=== PATIENT | female | born 1945 | race Caucasian/White ===

== ENCOUNTER 2019-06-23 16:07 | Outpatient (RCR) | payer MEDICARE, OTHER, SELFPAY | END 2019-09-21 23:59 | disposition home or self-care (01) | LOC: CAMBRIDGE 16:07 | PROVIDERS: PCP Nurse Practitioner Family; Visit Provider Student in an Organized Health Care Education/Training Program | DX: E11.22 Type 2 diabetes mellitus with diabetic chronic kidney disease (principal); E78.49 Other hyperlipidemia; N18.2 Chronic kidney disease, stage 2 (mild); R25.2 Cramp and spasm; R11.2 Nausea with vomiting, unspecified; R05 Cough; Z79.4 Long term (current) use of insulin | CPT/HCPCS: 99199 ==

== ENCOUNTER 2019-10-19 10:35 | Emergency (ER) | payer MEDICARE, MEDICAID, SELFPAY ==
--- NOTE | ~2019-10-19 | XR_ITS ---
EXAMINATION: XR abdomen/kub 1V EXAM DATE: 10/19/2019 14:40 INDICATION: Constipation. No bowel movement in 4 days. TECHNIQUE: Frontal projection(s) of the abdomen for interpretation. Comparison is made to prior exami nation from 05/25/18. FINDINGS: There is expected amount of colonic stool and gas. No small bowel dilation, nonobstructiv e bowel gas pattern. There are no suspicious calcifications identified. There is no organomegaly suspected. There is L2 vertebroplasty. IMPRESSION: Unremarkable abdomen x-ray exam. Reviewed, dictated and finalized at location A.
[2019-10-19 11:07] VITALS: BP 152/105; PULSE 72; RESP 18; TEMP 36.6; O2SAT 97
--- NOTE | 2019-10-19 14:06 | ED.GIBLEED ---
HPI - GI Bleed General Chief complaint: GI Bleed Stated complaint: My hemroids are hanging down. Time Seen by Provider: 10/19/19 14:01 Source: patient and RN notes reviewed Mode of arrival: ambulatory Limitations: no limitations History of Present Illness HPI Narrative: Pt is a 74 y/o female presenting to the ED c/o constipation. Pt reports she has not been able to perform a BM for 3 days. Pt states she has been taking Laxatives for 4 days and has also tried an enema and a suppository. Pt notes she has a normal bowel routine of going 1-2 times per day and states she doesn't take a stool softener daily. Pt states she is still passing gas and denies any recent medication change. Pt also reports rectal bleeding, but denies N/V, SOB, or ABD pain. Pt notes her last meal was yesterday night. Onset (ago): day(s) (3) Associated symptoms: other (Rectal bleeding) Treatments Prior to Arrival: none (Enema; Laxatives) and suppositories Related Data Home Medications Medication Instructions Recorded Confirmed IV infusion pump accessory #25 each 10/14/19 Lactobacillus acidophilus 1.5 mg 100 mmu cells PO DAILY 10/14/19 (250 million cell) capsule acetaminophen 325 mg capsule 325 mg PO Q6H PRN 10/14/19 albuterol sulfate 90 mcg/actuation 1 inhalation INHALATION Q4H 10/14/19 aerosol inhaler alprazolam 0.5 mg tablet 1 mg PO TID tablet 10/14/19 aspirin 81 mg tablet,delayed 81 mg PO DAILY 10/14/19 release atorvastatin 40 mg tablet 40 mg PO DAILY 10/14/19 benzocaine 20 %-menthol 0.5 % 1 spray TOPICAL DAILY 10/14/19 topical aerosol budesonide-formoterol HFA 80 2 puff INHALATION Q12H 10/14/19 mcg-4.5 mcg/actuation aerosol inhaler carvedilol 25 mg tablet 25 mg PO BID tablet 10/14/19 donepezil 5 mg tablet 5 mg PO ONCE 10/14/19 furosemide 20 mg tablet 20 mg PO DAILY tablet 10/14/19 glipizide 2.5 mg tablet, extended 2.5 mg PO DAILY 10/14/19 release 24 hr glucose 4 gram chewable tablet 4 gm PO Q15M PRN 10/14/19 hydralazine 25 mg tablet 25 mg PO BID tablet 10/14/19 insulin glargine 100 unit/mL (3 10 unit SUB-Q DAILY 10/14/19 mL) subcutaneous pen ipratropium 0.5 mg-albuterol 3 mg 3 ml INHALATION Q6H PRN 10/14/19 (2.5 mg base)/3 mL nebulization soln magnesium carbonate 250 mg capsule mg PO 10/14/19 methocarbamol 750 mg tablet 750 mg PO TID 10/14/19 montelukast 10 mg tablet 10 mg PO DAILY 10/14/19 multivitamin 1 tablet PO DAILY 10/14/19 naproxen sodium 220 mg capsule 220 mg PO BID PRN 10/14/19 nebulizer and compressor #1 each 10/14/19 nitroglycerin 0.4 mg sublingual 0.4 mg SUBLINGUAL Q5M 10/14/19 tablet oxybutynin chloride 5 mg 5 mg PO DAILY 10/14/19 tablet,extended release 24 hr pantoprazole 40 mg tablet,delayed 40 mg PO DAILY tablet 10/14/19 release paroxetine HCl 40 mg tablet 40 mg PO DAILY 10/14/19 sitagliptin 100 mg tablet 100 mg PO DAILY 10/14/19 vitamin B complex 1 tablet PO DAILY 10/14/19 Allergies Allergy/AdvReac Type Severity Reaction Status Date / Time meperidine AdvReac Unknown Diarrhea Verified 10/19/19 15:18 Review of Systems Review of Systems: All systems reviewed & are unremarkable except as noted in HPI and below Respiratory: Respiratory: Denies dyspnea Gastrointestinal: Gastrointestinal: Denies abdominal pain, Reports hematochezia, Reports constipation, Denies nausea and Denies vomiting [facility] Past Medical History Medical History Anemia Anxiety Arthritis Asthma Bilateral cataracts Bronchitis CAD (coronary artery disease) CHF (congestive heart failure) Colitis COPD (chronic obstructive pulmonary disease) CVA (cerebral vascular accident) Depression Gastric ulcer GERD (gastroesophageal reflux disease) Hiatal hernia History of blood transfusion HLD (hyperlipidemia) HTN (hypertension) Myocardial infarction Pneumonia Type II diabetes mellitus UTI (urinary tract infection) Surgical History Surgical History (Reviewe
[2019-10-19 14:50] LABS: Basophils Percent Auto 0.4 % (0.2-1.2); Eosinophils Absolute Auto 0.4 K/mm3 (0-0.3); Eosinophils Percent Auto 4.1 % (0-4.4); Hemoglobin 12.5 g/dL (12.0-15.0); Immature Granulocyte Absolute 0.03 K/mm3 (0.00-0.031); Immature Granulocyte Percent A 0.3 % (0-0.5); Lymphocytes Absolute Auto 2.25 K/mm3 (0.9-3.2); Mean Corpuscular HGB Conc 32.9 g/dl (32-36); Mean Corpuscular Hemoglobin 30.7 pg (26-34); Mean Corpuscular Volume 93.4 fl (80-100); Mean Platelet Volume 10.3 fl (7.4-10.4); Monocytes Absolute Auto 0.6 K/mm3 (0.1-0.6); Monocytes Percent Auto 5.8 % (2.6-8.5); Neutrophils Absolute Auto 6.9 K/mm3 (1.3-6.7); Neutrophils Percent Auto 67.4 % (45.5-73.1); Platelet Count Result 222 k/mm3 (150-375); Red Blood Count 4.07 M/mm3 (4.2-5.4); White Blood Count 10.2 K/mm3 (4.5-10.0)
[2019-10-19 14:57] LABS: Glucose Point of Care 56 (65-105)
--- NOTE | 2019-10-19 15:05 | PC.NURSE ---
Pt. beside glucose 56. EDP notified. EDP asked staff to feed Pt. Gave Pt. two apple juices, turkey sandwich, granola bar, and bag of chips. Pt. ate it all with no issues. Will recheck glucose.
[2019-10-19 15:11] LABS: Alanine Aminotransferase 21 U/L (4-35); Alkaline Phosphatase 95 U/L (38-126); Aspartate Amino Transferase 26 U/L (14-36); Bilirubin,Total 0.3 mg/dL (0.2-1.3); Blood Urea Nitrogen 18 mg/dL (7-17); Calcium 9.2 mg/dL (8.4-10.2); Carbon Dioxide 37 mmol/L (22-30); Chloride 95 mmol/L (98-107); Estimated CRCL calculation 42 ml/min; Estimated Glomerular Filt Rate 49; Glucose 62 mg/dL (65-105); Potassium 3.5 mmol/L (3.4-5.0); Sodium 139 mmol/L (137-145)
[2019-10-19] MEDS: MAGNESIUM CITRATE 300 ML BTL 150 ML PO (15:40)
[2019-10-19 15:59] LABS: Glucose Point of Care 159 (65-105)
[2019-10-19 17:34] VITALS: RESP 16
== END 2019-10-19 17:35 | disposition home or self-care (01) ==
PROVIDERS: Emergency Provider General Practice; PCP Nurse Practitioner Family
DX: K59.00 Constipation, unspecified (principal); M19.90 Unspecified osteoarthritis, unspecified site; J44.9 Chronic obstructive pulmonary disease, unspecified; I25.10 Atherosclerotic heart disease of native coronary artery without angina pectoris; E11.9 Type 2 diabetes mellitus without complications; I50.9 Heart failure, unspecified; Z86.73 Personal history of transient ischemic attack (TIA), and cerebral infarction without residual deficits; Z95.5 Presence of coronary angioplasty implant and graft; F41.9 Anxiety disorder, unspecified; F32.9 Major depressive disorder, single episode, unspecified; K21.9 Gastro-esophageal reflux disease without esophagitis; E78.5 Hyperlipidemia, unspecified; I11.0 Hypertensive heart disease with heart failure; I25.2 Old myocardial infarction; Z87.440 Personal history of urinary (tract) infections; Z79.4 Long term (current) use of insulin; Z79.82 Long term (current) use of aspirin; Z86.2 Personal history of diseases of the blood and blood-forming organs and certain disorders involving the immune mechanism
CPT/HCPCS: 36415; 74018; 80053; 82948; 85025; 99283; A9270

== ENCOUNTER 2020-05-14 06:17 | Emergency (ER) | payer MEDICARE, MEDICAID, SELFPAY ==
[2020-05-14] VITALS (20 sets, daily range): BP systolic 118–174; BP diastolic 67–103; PULSE 73–77; RESP 18; TEMP 36.8; O2SAT 90–95
--- NOTE | ~2020-05-14 | CT_ITS ---
EXAMINATION: CT brain wo con, CT cervical spine wo con EXAM DATE: 05/14/2020 07:18 (accession [id number]), 05/14/2020 07:19 (accession [id number]) INDICATION: Fall, head injury. TECHNIQUE: Spiral CT of the head was performed without contrast. Axial, coronal and sagittal images were reviewed. Spiral CT of the cervical spine was performed without contrast. Axial images were rev iewed. Coronal and sagittal reformatted images were also reviewed. The dose-length product (DLP) fo r this examination was 605.33 (accession [id number]), 424.43 (accession [id number]) mGy-cm. The exposure was tailored according to patient size, and iterative reconstruction (ASIR) was used as additional dose reduction technique. Comparison is made to prior examination from 02/04/2018. FINDINGS: HEAD CT: Old bilateral basal ganglia, right caudate head lacunar infarctions. There is no acute intra parenchymal hemorrhage. No evidence of intraparenchymal brain mass lesion. No evidence of acute inf arction. There is mild to moderate periventricular and subcortical hypodensity, nonspecific but proba shawna related to small vessel ischemic disease. There is mild to moderate prominence of the sulci and ventricles related to cerebral atrophy. There is intracranial carotid arteriosclerosis. There is no mass effect or midline shift. There is no obstructive hydrocephalus suspected. There are no extr a-axial collections. There are no acute calvarial fractures. Patient has had bilateral ocular lens surgery. Soft tissue is unremarkable. The visualized sinuses and mastoid air cells are well aerated . CERVICAL CT: There is bulky upper cervical facet arthropathy. Uncovertebral joint, disc disease and n eural foraminal stenosis is most pronounced at the C6-7 level. There is no evidence of acute cervical fracture. The odontoid process is intact. Pre-dens space is normal. Prevertebral soft tissue is n ormal. There are no soft tissue abnormalities identified. There is no disc space widening or trauma tic vertebral body subluxation suspected. A detailed level by level evaluation of spondylosis can be added as addendum if requested. IMPRESSION: Chronic intracranial findings and cervical spondylosis. Reviewed, dictated and finalized at location A. IMPRESSION: Chronic intracranial findings and cervical spondylosis.
--- NOTE | ~2020-05-14 | XR_ITS ---
EXAMINATION: XR chest 1V portable EXAM DATE: 05/14/2020 07:48 INDICATION: Fall. TECHNIQUE: Portable AP frontal chest x-ray was obtained. Comparison is made to prior examination from 12/09/2018. FINDINGS: The lungs are clear. There are no pleural effusions. Cardiac silhouette is prominent but magnified on this AP technique. There is no pneumothorax suspected. The bones and soft tissues are unremarkable. Mild hyperinflation IMPRESSION: Mild hyperinflation. Reviewed, dictated and finalized at location A. IMPRESSION: Mild hyperinflation.
--- NOTE | 2020-05-14 07:15 | PC.NURSE ---
Report taken from BLADE Blankenship.
--- NOTE | 2020-05-14 07:35 | ED.FALL ---
HPI - Fall General Chief Complaint: Fall Stated Complaint: FALL Time Seen by Provider: 05/14/20 07:02 Source: RN notes reviewed History of Present Illness HPI Narrative: Patient presents emergency department from home for a fall. Patient states she is trying to get into bed and had been back into the bed to sit down and rolled off the bed striking the back of her head. States she has a small amount of bleeding at that time she denies any loss of consciousness she denies any other injuries from the fall. Patient states she is not on any blood thinners. She denies any vision changes numbness or tingling in extremities chest pain shortness of breath abdominal pain or any other symptoms Patient states last tetanus shot was approximately 3 weeks ago Related Data Home Medications Medication Instructions Recorded Confirmed IV infusion pump accessory #25 each 10/14/19 Lactobacillus acidophilus 1.5 mg 100 mmu cells PO DAILY 10/14/19 (250 million cell) capsule acetaminophen 325 mg capsule 325 mg PO Q6H PRN 10/14/19 albuterol sulfate 90 mcg/actuation 1 inhalation INHALATION Q4H 10/14/19 aerosol inhaler alprazolam 0.5 mg tablet 1 mg PO TID tablet 10/14/19 aspirin 81 mg tablet,delayed 81 mg PO DAILY 10/14/19 release atorvastatin 40 mg tablet 40 mg PO DAILY 10/14/19 benzocaine 20 %-menthol 0.5 % 1 spray TOPICAL DAILY 10/14/19 topical aerosol budesonide-formoterol HFA 80 2 puff INHALATION Q12H 10/14/19 mcg-4.5 mcg/actuation aerosol inhaler carvedilol 25 mg tablet 25 mg PO BID tablet 10/14/19 donepezil 5 mg tablet 5 mg PO ONCE 10/14/19 furosemide 20 mg tablet 20 mg PO DAILY tablet 10/14/19 glipizide 2.5 mg tablet, extended 2.5 mg PO DAILY 10/14/19 release 24 hr glucose 4 gram chewable tablet 4 gm PO Q15M PRN 10/14/19 hydralazine 25 mg tablet 25 mg PO BID tablet 10/14/19 insulin glargine 100 unit/mL (3 10 unit SUB-Q DAILY 10/14/19 mL) subcutaneous pen ipratropium 0.5 mg-albuterol 3 mg 3 ml INHALATION Q6H PRN 10/14/19 (2.5 mg base)/3 mL nebulization soln magnesium carbonate 250 mg capsule mg PO 10/14/19 methocarbamol 750 mg tablet 750 mg PO TID 10/14/19 montelukast 10 mg tablet 10 mg PO DAILY 10/14/19 multivitamin 1 tablet PO DAILY 10/14/19 naproxen sodium 220 mg capsule 220 mg PO BID PRN 10/14/19 nebulizer and compressor #1 each 10/14/19 nitroglycerin 0.4 mg sublingual 0.4 mg SUBLINGUAL Q5M 10/14/19 tablet oxybutynin chloride 5 mg 5 mg PO DAILY 10/14/19 tablet,extended release 24 hr pantoprazole 40 mg tablet,delayed 40 mg PO DAILY tablet 10/14/19 release paroxetine HCl 40 mg tablet 40 mg PO DAILY 10/14/19 sitagliptin 100 mg tablet 100 mg PO DAILY 10/14/19 vitamin B complex 1 tablet PO DAILY 10/14/19 Allergies Allergy/AdvReac Type Severity Reaction Status Date / Time meperidine AdvReac Unknown Diarrhea Verified 05/14/20 08:09 Review of Systems Review of Systems: Narrative: Gen.: Denies fevers or chills Eyes: Denies eye pain or visual change ENT: Denies congestion Respiratory: Denies shortness of breath or cough CV: Denies chest pain or palpitations GI: Denies abdominal pain nausea, emesis or diarrhea Musculoskeletal: Denies back pain or muscle pain Neuro: Denies numbness, tingling, weakness or focal weakness reports striking her head Skin: Denies rash Except as documented, all other systems reviewed and negative [facility] Past Medical History Medical History Anemia Anxiety Arthritis Asthma Bilateral cataracts Bronchitis CAD (coronary artery disease) CHF (congestive heart failure) Colitis COPD (chronic obstructive pulmonary disease) CVA (cerebral vascular accident) Depression Gastric ulcer GERD (gastroesophageal reflux disease) Hiatal hernia History of blood transfusion HLD (hyperlipidemia) HTN (hypertension) Myocardial infarction Pneumonia Type II diabetes mellitus UTI (urinary tract infection)
--- NOTE | 2020-05-14 07:43 | PC.NURSE ---
Xray at bedside.
--- NOTE | 2020-05-14 08:00 | PC.NURSE ---
Pt able to ambulate with walker without difficulty. Pt uses walker at baseline.
--- NOTE | 2020-05-14 09:00 | PC.NURSE ---
Pt made aware she is ready for discharge. Pt reports she has no family in the area to come pick her up. Assisted living facility where pt resides was called to see if they offer transport. Assisted living facility does not provide transport.
--- NOTE | 2020-05-14 09:14 | PC.NURSE ---
Pt called daughter for ride.
== END 2020-05-14 09:19 ==
PROVIDERS: Emergency Provider Emergency Medicine; PCP Nurse Practitioner Family
DX: S01.01XA Laceration without foreign body of scalp, initial encounter (principal); M19.90 Unspecified osteoarthritis, unspecified site; J44.9 Chronic obstructive pulmonary disease, unspecified; I25.10 Atherosclerotic heart disease of native coronary artery without angina pectoris; I50.9 Heart failure, unspecified; Z86.73 Personal history of transient ischemic attack (TIA), and cerebral infarction without residual deficits; K21.9 Gastro-esophageal reflux disease without esophagitis; E78.5 Hyperlipidemia, unspecified; I11.0 Hypertensive heart disease with heart failure; I25.2 Old myocardial infarction; E11.9 Type 2 diabetes mellitus without complications; Z87.440 Personal history of urinary (tract) infections; Z86.2 Personal history of diseases of the blood and blood-forming organs and certain disorders involving the immune mechanism; Z79.4 Long term (current) use of insulin; Z79.82 Long term (current) use of aspirin; M47.812 Spondylosis without myelopathy or radiculopathy, cervical region; W06.XXXA Fall from bed, initial encounter
CPT/HCPCS: 12001; 70450; 71045; 72125; 99284

== ENCOUNTER 2020-11-05 11:37 | Emergency (ER) | payer MEDICARE, MEDICAID, SELFPAY ==
[2020-11-05] VITALS (27 sets, daily range): BP systolic 131–157; BP diastolic 76–107; PULSE 71–85; RESP 13–28; TEMP 36.1; O2SAT 92–97
--- NOTE | ~2020-11-05 | XR_ITS ---
EXAMINATION: XR chest 2V DATE: 11/05/2020 12:07 INDICATION: Chest pain TECHNIQUE: AP and lateral views of the chest are obtained. COMPARISON: 05/14/2020 FINDINGS: There are minimal airspace opacities of the left lung base. There is no pleural effusion or pneumothorax. The cardiomediastinal silhouette is normal. A coronary artery stent is noted. There ap pear to be changes of hiatal hernia repair. Vertebroplasty changes noted in the lower thoracic spine. 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 IMPRESSION: 1. Minimal left basilar airspace opacity, consistent with atelectasis versus pneumonia. Reviewed, dictated and finalized at location A. IMPRESSION: 1. Minimal left basilar airspace opacity, consistent with atelectasis versus pn eumonia.
--- NOTE | ~2020-11-05 | CT_ITS ---
EXAMINATION: CTA chest PE protocol DATE: 11/05/2020 13:02 INDICATION: Shortness of breath TECHNIQUE: Computed tomography angiography (CTA) of the chest was performed with 100 mL Omnipaque-350 intravenous contrast timed to evaluate the pulmonary arteries. Coronal maximum intensity projection 3D-reconstructions were created by the technologist. The dose-length product (DLP) was 652.01 mGy-cm. Automated exposure control and iterative reconstruction technique were employed. COMPARISON: 06/26/2013 FINDINGS: The pulmonary arteries are well-opacified. No pulmonary embolism is identified. Stable nodu les of the lower lobes measuring up to 5 mm are consistent with old granulomatous disease. There is m ild atelectasis of the lower lobes. There is no pleural effusion or pneumothorax. The heart size is n ormal. There is calcified coronary artery atherosclerosis. There is a mildly enlarged right hilar lym ph node, likely reactive. There are surgical changes of hiatal hernia repair with a small recurrent h iatal hernia. 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 Vertebroplasty paredes ge is noted in the T10 vertebral body. IMPRESSION: 1. No pulmonary embolism or acute cardiopulmonary abnormality. Mild atelectasis. Reviewed, dictated and finalized at location A. IMPRESSION: 1. No pulmonary embolism or acute cardiopulmonary abnormality. Mild atelectasis .
--- NOTE | 2020-11-05 11:41 | ECG_ITS ---
Measurements Intervals [place] Rate: 73 P: 44 GA: 190 QRS: 6 QRSD: 77 T: 67 QT: 377 QTc: 418 Interpretive Statements SINUS RHYTHM BORDERLINE ST-T WAVE ABNORMALITY- HIGH LATERAL LEADS BASELINE ARTIFACT- I, II, AVR, AVL, AVF BORDERLINE ECG Electronically Signed On 11-05-2020 15:16:28 CDT by Sd Conn D.O.
[2020-11-05 12:07] LABS: Basophils Percent Auto 0.4 % (0.2-1.2); Eosinophils Absolute Auto 0.3 K/mm3 (0-0.3); Eosinophils Percent Auto 2.6 % (0-4.4); Hemoglobin 12.9 g/dL (12.0-15.0); Immature Granulocyte Absolute 0.05 K/mm3 (0.00-0.031); Immature Granulocyte Percent A 0.5 % (0-0.5); Lymphocytes Absolute Auto 2.17 K/mm3 (0.9-3.2); Lymphocytes Percent Auto 22.6 % (18.3-44.2); Mean Corpuscular HGB Conc 33.9 g/dl (32-36); Mean Corpuscular Hemoglobin 31.4 pg (26-34); Mean Corpuscular Volume 92.5 fl (80-100); Mean Platelet Volume 10.4 fl (7.4-10.4); Monocytes Absolute Auto 0.7 K/mm3 (0.1-0.6); Monocytes Percent Auto 6.9 % (2.6-8.5); Neutrophils Absolute Auto 6.4 K/mm3 (1.3-6.7); Platelet Count Result 208 k/mm3 (150-375); Red Blood Count 4.11 M/mm3 (4.2-5.4); Red Cell Distribution Width 12.3 % (11.5-14.5); White Blood Count 9.6 K/mm3 (4.5-10.0)
[2020-11-05 12:18] LABS: Anion Gap 5 mmol/L (8-16); Blood Urea Nitrogen 15 mg/dL (7-17); Calcium 8.6 mg/dL (8.4-10.2); Carbon Dioxide 34 mmol/L (22-30); Chloride 99 mmol/L (98-107); Estimated CRCL calculation 46 ml/min; Estimated Glomerular Filt Rate 54; Glucose 141 mg/dL (65-105); Potassium 4.1 mmol/L (3.4-5.0); Sodium 138 mmol/L (137-145)
[2020-11-05 12:28] LABS: INR 0.9; Prothrombin Time 12.9 Seconds (11.1-14.7)
[2020-11-05 12:29] LABS: Partial Thromboplastin Time 30.1 SECONDS (22.3-36.8)
[2020-11-05 12:30] LABS: Troponin I < 0.012 ng/mL (0.000-0.034)
--- NOTE | 2020-11-05 12:39 | ED.CHESTPAIN ---
HPI - Chest Pain General Chief Complaint: Chest Pain Stated Complaint: chest pain Time Seen by Provider: 11/05/20 12:03 Source: patient Mode of arrival: EMS Limitations: no limitations History of Present Illness HPI narrative: Patient brought in by EMS with reports of left-sided chest pain since last night around 1900. She states that pain radiates was side of her chest and the left side of her back. She now has chest pain bilaterally and to ribs posteriorly on both sides. She had difficulty sleeping last night secondary to pain. Pain is worse with movement. She cannot provide me a descriptive quality for her pain but states it is approximately 4-7 out of 10 in severity. She reports chronic shortness of breath, not worse as of late. She has had a nonproductive cough. Denies any fever, chills, nausea, vomiting. She does report leg swelling. No history of VTE. She does have an underlying history of hypertension, hyperlipidemia, diabetes. Blood sugar this morning was in the 70s. She is also had an UT in the past status post stent placement. She is using neb treatments at home approximately once daily. She states she wears 2-3 L O2 per NC at home. States she has been vaccinated for Covid. No personal history of Covid. No recent sick contacts. She does endorse some urinary frequency, incomplete emptying and dysuria. Related Data Home Medications Medication Instructions Recorded Confirmed IV infusion pump accessory #25 each 10/14/19 Lactobacillus acidophilus 1.5 mg 100 mmu cells PO DAILY 10/14/19 (250 million cell) capsule acetaminophen 325 mg capsule 325 mg PO Q6H PRN 10/14/19 albuterol sulfate 90 mcg/actuation 1 inhalation INHALATION Q4H 10/14/19 aerosol inhaler alprazolam 0.5 mg tablet 1 mg PO TID tablet 10/14/19 aspirin 81 mg tablet,delayed 81 mg PO DAILY 10/14/19 release atorvastatin 40 mg tablet 40 mg PO DAILY 10/14/19 benzocaine 20 %-menthol 0.5 % 1 spray TOPICAL DAILY 10/14/19 topical aerosol budesonide-formoterol HFA 80 2 puff INHALATION Q12H 10/14/19 mcg-4.5 mcg/actuation aerosol inhaler carvedilol 25 mg tablet 25 mg PO BID tablet 10/14/19 donepezil 5 mg tablet 5 mg PO ONCE 10/14/19 furosemide 20 mg tablet 20 mg PO DAILY tablet 10/14/19 glipizide 2.5 mg tablet, extended 2.5 mg PO DAILY 10/14/19 release 24 hr glucose 4 gram chewable tablet 4 gm PO Q15M PRN 10/14/19 hydralazine 25 mg tablet 25 mg PO BID tablet 10/14/19 insulin glargine 100 unit/mL (3 10 unit SUB-Q DAILY 10/14/19 mL) subcutaneous pen ipratropium 0.5 mg-albuterol 3 mg 3 ml INHALATION Q6H PRN 10/14/19 (2.5 mg base)/3 mL nebulization soln magnesium carbonate 250 mg capsule mg PO 10/14/19 methocarbamol 750 mg tablet 750 mg PO TID 10/14/19 montelukast 10 mg tablet 10 mg PO DAILY 10/14/19 multivitamin 1 tablet PO DAILY 10/14/19 naproxen sodium 220 mg capsule 220 mg PO BID PRN 10/14/19 nebulizer and compressor #1 each 10/14/19 nitroglycerin 0.4 mg sublingual 0.4 mg SUBLINGUAL Q5M 10/14/19 tablet oxybutynin chloride 5 mg 5 mg PO DAILY 10/14/19 tablet,extended release 24 hr pantoprazole 40 mg tablet,delayed 40 mg PO DAILY tablet 10/14/19 release paroxetine HCl 40 mg tablet 40 mg PO DAILY 10/14/19 sitagliptin 100 mg tablet 100 mg PO DAILY 10/14/19 vitamin B complex 1 tablet PO DAILY 10/14/19 Allergies Allergy/AdvReac Type Severity Reaction Status Date / Time meperidine AdvReac Unknown Diarrhea Verified 11/05/20 11:57 Review of Systems Review of Systems: Narrative: CONSTITUTIONAL: Denies fever, chills, or sweats. EYES: Denies visual changes, redness, or discharge. ENT: Denies rhinorrhea, congestion, sore throat, or otalgia. CARDIOVASCULAR: Reports chest pain with radiation into the back. Reports leg swelling RESPIRATORY: Reports nonproductive cough and chronic shortness of breath, not worse as of late GASTROINTESTINAL: Denies abdominal pain, nausea, vomiting, or diarrhea. GENITOURINARY:
[2020-11-05] MEDS: ALBUTEROL SULFATE NEB 2.5 MG/0.5 ML INH INHALATION (12:48)
[2020-11-05] MEDS: methylPREDNISolone SOD SUCC 125 MG VIAL IV PUSH (13:09)
[2020-11-05 13:28] LABS: Alanine Aminotransferase 20 U/L (4-35); Albumin Level 3.9 g/dL (3.5-5.1); Alkaline Phosphatase 89 U/L (38-126); Aspartate Amino Transferase 26 U/L (14-36); Bilirubin,Total 0.4 mg/dL (0.2-1.3)
[2020-11-05 13:37] LABS: NT Pro B Type Natriuretic Pept 90 PG/ML (5-100)
[2020-11-05 13:53] LABS: Add Urine Microscopic? NO; Appearance Urine Clear (Clear); Bilirubin Urine Negative (Negative); Blood Urine Negative (Negative); Color Urine Straw (Yellow); Glucose Urine UA Negative (Negative); Ketones Urine Negative (Negative); Leukocyte Esterase Ur Negative LEU/UL (Negative); Nitrate Urine Negative (Negative); Protein Urine Negative (Negative); Specific Grav Ur 1.013 (1.001-1.035); Urobilinogen Urine Negative mg/dL (<2.0)
[2020-11-05 14:01] LABS: Bacteria Urine Trace /hpf; RBC Urine 0-2 /hpf (0-2); Squamous Epithelial Cell Urine Rare /hpf (Few); WBC Urine 0-3 /hpf
[2020-11-05 15:11] LABS: Troponin I < 0.012 ng/mL (0.000-0.034)
== END 2020-11-05 16:07 ==
PROVIDERS: Emergency Medicine; Emergency Provider Nurse Practitioner; PCP Nurse Practitioner Family
DX: J18.9 Pneumonia, unspecified organism (principal); J44.9 Chronic obstructive pulmonary disease, unspecified; I25.10 Atherosclerotic heart disease of native coronary artery without angina pectoris; Z86.73 Personal history of transient ischemic attack (TIA), and cerebral infarction without residual deficits; K21.9 Gastro-esophageal reflux disease without esophagitis; E78.5 Hyperlipidemia, unspecified; I10 Essential (primary) hypertension; I25.2 Old myocardial infarction; E11.9 Type 2 diabetes mellitus without complications; F41.9 Anxiety disorder, unspecified; F32.9 Major depressive disorder, single episode, unspecified; Z87.440 Personal history of urinary (tract) infections; Z79.4 Long term (current) use of insulin; Z79.82 Long term (current) use of aspirin; Z86.2 Personal history of diseases of the blood and blood-forming organs and certain disorders involving the immune mechanism; R06.02 Shortness of breath; R94.31 Abnormal electrocardiogram [ECG] [EKG]
CPT/HCPCS: 36415; 71046; 71275; 80048; 80076; 81003; 83880; 84484; 85025; 85610; 85730; 93005; 94640; 96374; 99284; J2930; Q9967

== ENCOUNTER → 2021-05-25 07:52 | Outpatient (CLI) | payer MEDICARE, SELFPAY ==
--- NOTE | ~2021-05-25 | XR_ITS ---
XR chest 2V DATE: 05/25/2021 08:53 INDICATION: Cough TECHNIQUE: PA and lateral views COMPARISON: 10/16/2020 CT pulmonary scan 11/05/2020 AP and lateral chest FINDINGS: 2. There is aortic calcification and mild unfolding. No hilar or mediastinal enlargement. The lungs a re clear of infiltrate or consolidation. No pleural effusion or pulmonary vascular congestion or pneu mothorax. There is vertebral plasty at T10, anterior wedge compression fracture from T9. There is vertebroplas ty and then L2 fracture. IMPRESSION: No active cardiac pulmonary disease Reviewed, dictated and finalized at location B.
== END ==
PROVIDERS: PCP Registered Nurse; Visit Provider Registered Nurse
DX: R05.9 Cough, unspecified (principal); M48.54XA Collapsed vertebra, not elsewhere classified, thoracic region, initial encounter for fracture
CPT/HCPCS: 71046

== ENCOUNTER 2021-09-07 19:07 | Emergency (ER) | payer MEDICARE, MEDICAID, SELFPAY ==
--- NOTE | ~2021-09-07 | CT_ITS ---
EXAMINATION: CT facial & cervical spine wo DATE: 09/07/2021 20:51 INDICATION: Fall, facial and neck trauma TECHNIQUE: Computed tomography (CT) of the facial bones and cervical spine was performed without intr avenous contrast. Automated exposure control and iterative reconstruction technique were employed. Ex am dose: 513.96 mGy-cm total exam DLP. COMPARISON: 05/14/2020 CT cervical spine FINDINGS: Bilateral comminuted nasal plate fractures. The anterior maxillary spine is intact. The frontozygomatic sutures and zygomatic arches are intact. Normal alignment at the temporomandibula r joints. No mandibular fracture or dislocation. Old left orbital medial wall blowout fracture, present on 05/31/2020 CT brain examination. There is a blowout fracture of the floor of the left orbit, of uncertain age.; Recommend clinical cor relation. No other facial fracture is evident. Prominent rightward deviation of the nasal septum. Soft tissue swelling of the nasal turbinates. Ther e is minimal mucoperiosteal thickening of the left maxillary sinus. The paranasal sinuses are otherwi se normally developed and aerated. There is straightening of the cervical spine, which may be due to positioning and/or muscle spasm. C1 and C2 are normally aligned and the odontoid process is intact. No fracture or dislocation or lock ed facet or prevertebral cervical soft tissue swelling. There is fusion of the apophyseal joints bilaterally at C2-3 and degenerative change at the remaining bilateral cervical apophyseal joints. There is mild degenerative disc disease at C5-6. There is severe degenerative disc disease with anterior posterior spurring at C6-7. There is uncovertebral joint spurring at C5-6 and to a greater extent C6-7. No prevertebral soft tissue swelling. IMPRESSION: Bilateral comminuted nasal plate fractures with overlying soft tissue swelling Old blowout fracture of the medial wall of the left orbit Blowout fracture of the floor of the left orbit, of uncertain age; recommend clinical correlation Straightening of the cervical spinal, which may be due to muscle spasm Degenerative changes, including degenerative disc disease at C5-6 and particularly C6-7 Reviewed, dictated and finalized at [facility]. Reviewed, dictated and finalized at location [facility]. 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
--- NOTE | ~2021-09-07 | XR_ITS ---
XR hand LT min 3V DATE: 09/07/2021 20:59 INDICATION: Fall, left hand injury, pain TECHNIQUE: 3 views COMPARISON: None FINDINGS: There is diffuse osteopenia. There is polyarticular osteoarthritis involving the triscaphe and prominently the first carpometacarp al joints, as well as first and fifth metacarpophalangeal joints and multiple interphalangeal joints. There is up to approximately 4.7 mm dorsally displaced spiral fracture of the shaft of the third meta carpal bone. There is a linear oblique fracture through the distal shaft of the fourth metacarpal bone with up to 2 mm lateral displacement. IMPRESSION: Fractures of the third and fourth metacarpal shafts Diffuse osteopenia Polyarticular osteoarthritis Reviewed, dictated and finalized at location [facility]. RY PUBLIC
--- NOTE | ~2021-09-07 | CT_ITS ---
EXAMINATION: CT brain wo con DATE: 09/07/2021 20:51 INDICATION: Fall. Head injury. Small laceration and bruising at bridge of nose. Small laceration in r ight infraorbital area. TECHNIQUE: Computed tomography (CT) of the head was performed without intravenous contrast. The mA wa s adjusted according to patient size. Iterative reconstruction technique was employed. Exam dose: 60 5.33 mGy-cm total exam DLP. COMPARISON: 05/14/2020 CT brain FINDINGS: Bilateral vertebral artery, basilar artery and internal carotid artery intracranial calcifi cations. There is nonspecific diminished attenuation of the cerebral white matter, likely due to coding auditor antolin small vessel ischemic changes. Bilateral chronic basal ganglia and right periventricular lacunar infarcts. No intracranial mass lesion or hemorrhage or recent cerebrovascular accident is detected. No midline shift or mass effect effect. There is central and cortical cerebral and cerebellar atrophy. No subdural or epidural hematoma is detected. No fracture or bone destruction of the cranial vault. There are comminuted fracture of the left and right nasal plates and overlying nasal soft tissue swel ling. Included portion of the anterior nasal spine appears intact. Chronic old left medial wall orbital blowout fracture. Included facial bones including zygomatic arches are otherwise intact. There is minimal mucoperiostea l thickening of the left maxillary sinus. The paranasal sinuses are otherwise normally aerated. IMPRESSION: Bilateral nasal plate fractures, with overlying soft tissue swelling No acute intracranial finding or skull fracture Old medial wall left orbital blowout fracture, unchanged since 05/14/2020 Intracranial cerebral atherosclerosis and chronic small vessel ischemic changes of cerebral white mat ter Bilateral basal ganglia and right paraventricular chronic lacunar infarcts Cerebral and cerebellar atrophy Reviewed, dictated and finalized at [facility]. Reviewed, dictated and finalized at location [facility]. KEGGER IMPRESSION: Bilateral nasal plate fractures, with overlying soft tissue swelli ng No acute intracranial finding or skull fracture Old medial wall left orbital blowout fracture, unchanged since 05/14/2020 Intracranial cerebral atherosclerosis and chronic small vessel ischemic changes of cerebral white matter Bilateral basal ganglia and right paraventricular chronic lacunar infarcts Cerebral and cerebellar atrophy
[2021-09-07 19:29] VITALS: BP 149/83; PULSE 79; RESP 17; TEMP 36.8; O2SAT 96
--- NOTE | 2021-09-07 20:43 | ED.GENADULT ---
HPI - General Adult General Chief complaint: Fall Stated complaint: fall Time Seen by Provider: 09/07/21 20:16 History of Present Illness HPI narrative: Patient 75-year-old female presents the emergency department with chief complaint of fall. Patient reports that she was getting into her bed that is a elevated platform and the patient slipped and fell to the ground. The patient reports that she has got an abrasion on her right cheek reports that she has a small wound to her nose noticed that her nose is bruised and her nasal septum appears to be crooked. The patient reports that she is up-to-date on her tetanus patient reports she has pain in the dorsum of her left hand. The patient denies loss of consciousness but reports that she has pain in her neck. Related Data Allergies Allergy/AdvReac Type Severity Reaction Status Date / Time No Known Allergies Allergy Verified 09/07/21 20:19 Review of Systems Review of Systems: A 10 system review of systems was completed on the patient and is negative except for what is stated in the HPI. Nursing and ancillary documentation was reviewed. Exam Narrative: GENERAL: Well-appearing, well-nourished, and in no acute distress. HEAD: Normocephalic, there is a abrasion present in the right cheek that does not require repair, there is a small quarter centimeter laceration to the bridge of the nose that does not require repair. There is bruising present around the the nose. EYES: PERRLA and EOMI. ENT: Nares clear, no rhinorrhea or active epistaxis. Mucous membranes moist. NECK: Supple. CHEST: Clear to auscultation. No respiratory distress. HEART: Regular rate and rhythm. No murmur heard. Normal peripheral pulses. ABDOMEN: Soft, nontender, nondistended, normal active bowel sounds. EXTREMITIES: Normal range of motion. No edema. There is tenderness to palpation and bruising present on the dorsum of the left hand SKIN: Warm, dry, no rash. NEURO: No focal deficits. Alert and oriented x3. PSYCH: Normal mood and affect. Course Vital Signs Vital signs: Vital Signs Temperature 36.8 C 09/07/21 19:29 Pulse Rate 79 09/07/21 19:29 Respiratory Rate 17 09/07/21 19:29 Blood Pressure 149/83 H 09/07/21 19:29 Pulse Oximetry 96 09/07/21 19:29 Temperature 36.8 C 09/07/21 19:29 Pulse Rate 79 09/07/21 19:29 Respiratory Rate 17 09/07/21 19:29 Blood Pressure 149/83 H 09/07/21 19:29 Pulse Oximetry 96 09/07/21 19:29 Medical Decision Making Vital Signs Vital Signs: Vital Signs Temperature 36.8 C 09/07/21 19:29 Pulse Rate 79 09/07/21 19:29 Respiratory Rate 17 09/07/21 19:29 Blood Pressure 149/83 H 09/07/21 19:29 Pulse Oximetry 96 09/07/21 19:29 Temperature 36.8 C 09/07/21 19:29 Pulse Rate 79 09/07/21 19:29 Respiratory Rate 17 09/07/21 19:29 Blood Pressure 149/83 H 09/07/21 19:29 Pulse Oximetry 96 09/07/21 19:29 Discharge Plan Discharge Clinical Impression: Fracture, metacarpal shaft Qualifiers: Encounter type: initial encounter Metacarpal bone: third Fracture type: closed Fracture alignment: displaced Laterality: left Qualified Code(s): S62.323A - Displaced fracture of shaft of third metacarpal bone, left hand, initial encounter for closed fracture Fracture, metacarpal Qualifiers: Encounter type: initial encounter Metacarpal bone: fourth Fracture type: closed Metacarpal location: shaft Fracture alignment: displaced Laterality: left Qualified Code(s): S62.325A - Displaced fracture of shaft of fourth metacarpal bone, left hand, initial encounter for closed fracture Fracture of nasal bone Qualifiers: Encounter type: initial encounter Fracture type: closed Qualified Code(s): S02.2XXA - Fracture of nasal bones, initial encounter for closed fracture Patient Disposition: Home, Self-Care Condition: Stable Instructions: Antibiotic Form, Nasal Fracture (ED), Hand Fracture (ED) Follow-up/Referrals: Gerber Wyatt MD [Physic
[2021-09-07 22:10] VITALS: BP 134/87; PULSE 70; RESP 15; O2SAT 97
--- NOTE | 2021-09-07 22:23 | PC.NURSE ---
Pt requesting pain medication at discharge, EDP Dr Mclaughlin made aware and states will place order for NORCO.
[2021-09-07] MEDS: HYDROcodone/acetaminophen (*CRX) 5-325 MG TABLET 1 TAB PO (22:27)
== END 2021-09-07 22:40 | disposition home or self-care (01) ==
PROVIDERS: Emergency Provider Emergency Medicine; PCP Nurse Practitioner Family
DX: S62.323A Displaced fracture of shaft of third metacarpal bone, left hand, initial encounter for closed fracture (principal); S62.325A Displaced fracture of shaft of fourth metacarpal bone, left hand, initial encounter for closed fracture; S02.2XXA Fracture of nasal bones, initial encounter for closed fracture; W01.0XXA Fall on same level from slipping, tripping and stumbling without subsequent striking against object, initial encounter
CPT/HCPCS: 29125; 70450; 70486; 72125; 73130; 99284; A9270

== ENCOUNTER 2021-09-28 01:24 | Day surgery (SDC) | payer MEDICARE, MEDICAID, SELFPAY ==
--- NOTE | 2021-09-18 06:43 | PM.HPGS ---
History of Present Illness History of Present Illness Consent: Risks, benefits, and alternatives have been discussed and questions answered. Patient agrees to proceed with procedure. Chief complaint: Nasal Fx Narrative: Arabella Pike is a 75 year old female fell on her face and has a committed deviated nasal fracture Review of Systems Review of Systems: All systems reviewed & are unremarkable except as noted in HPI and below PMFSH Past Medical History Medical History Anemia Anxiety Arthritis Asthma Bilateral cataracts Bronchitis CAD (coronary artery disease) CHF (congestive heart failure) Colitis COPD (chronic obstructive pulmonary disease) CVA (cerebral vascular accident) Depression Gastric ulcer GERD (gastroesophageal reflux disease) Hiatal hernia History of blood transfusion HLD (hyperlipidemia) HTN (hypertension) Myocardial infarction Pneumonia Type II diabetes mellitus UTI (urinary tract infection) Surgical History Surgical History H/O cardiac catheterization H/O dilation and curettage H/O heart artery stent x3 H/O tubal ligation H/O: hysterectomy History of appendectomy History of bladder surgery Suspension Family History Family History Mother Family history of diabetes mellitus in first degree relative Family history of primary malignant neoplasm of liver Family history of heart disease in male family member before age 55 Family history of hearing loss Family history of liver disease Diabetes mellitus Cerebrovascular accident Family history of pancreatic cancer Father Family history of emphysema Sibling Diabetes mellitus Other Depression Family history of alcoholism Family history of allergic disorder Family history of arthritis Family history of cardiovascular disease Family history of coronary artery disease Family history of malignant neoplasm Family history of mental disorder Family history of osteoporosis Hypertension Social History Social History Smoking status: Never smoker Alcohol intake: never Gender identity (if verbalized by the patient): Female Meds Home Medications and Allergies Home Medications Medication Instructions Recorded Confirmed Type IV infusion pump accessory #25 each 10/14/19 09/11/21 History Lactobacillus acidophilus 1.5 mg 100 mmu cells PO DAILY 10/14/19 09/11/21 History (250 million cell) capsule acetaminophen 325 mg capsule 325 mg PO Q6H PRN 10/14/19 09/11/21 History albuterol sulfate 90 mcg/actuation 1 inhalation INHALATION Q4H 10/14/19 09/11/21 History aerosol inhaler alprazolam 0.5 mg tablet 1 mg PO TID tablet 10/14/19 09/11/21 History aspirin 81 mg tablet,delayed 81 mg PO DAILY 10/14/19 09/11/21 History release atorvastatin 40 mg tablet 40 mg PO DAILY 10/14/19 09/11/21 History benzocaine 20 %-menthol 0.5 % 1 spray TOPICAL DAILY 10/14/19 09/11/21 History topical aerosol budesonide-formoterol HFA 80 2 puff INHALATION Q12H 10/14/19 09/11/21 History mcg-4.5 mcg/actuation aerosol inhaler carvedilol 25 mg tablet 25 mg PO BID tablet 10/14/19 09/11/21 History donepezil 5 mg tablet 5 mg PO ONCE 10/14/19 09/11/21 History furosemide 20 mg tablet 20 mg PO DAILY tablet 10/14/19 09/11/21 History glipizide 2.5 mg tablet, extended 2.5 mg PO DAILY 10/14/19 09/11/21 History release 24 hr glucose 4 gram chewable tablet 4 gm PO Q15M PRN 10/14/19 09/11/21 History hydralazine 25 mg tablet 25 mg PO BID tablet 10/14/19 09/11/21 History insulin glargine 100 unit/mL (3 10 unit SUB-Q DAILY 10/14/19 09/11/21 History mL) subcutaneous pen ipratropium 0.5 mg-albuterol 3 mg 3 ml INHALATION Q6H PRN 10/14/19 09/11/21 History (2.5 mg base)/3 mL nebulization soln magnesium carbonate 250
[2021-09-18 14:15] VITALS: BMI 32.5
--- NOTE | 2021-09-18 14:39 | PC.NURSE ---
Report to the Outpatient Waiting Room, entrance under the green pavilion located off [facility], at time __8:00AM____ on date _09/28/21 . OR Time: ___10:00AM . - You will be asked a series of questions to screen for COVID 19 for your protection. - A mask is required within the hospital. - No visitors are allowed at this time. Preoperative COVID Testing Requirements: No COVID Test needed if: (proof is required; if not received patient will have Rapid Test prior to entry) - Patient has received COVID Vaccine at least 14 days prior to procedure date or - Patient has positive COVID test result within last 90 days of surgery date. COVID Test needed if above criteria is not met If not COVID vaccinated a COVID test must be conducted within 72 hours of surgery and patient is asked to isolate self from time of testing until procedure. You will go to the [facility] for your COVID testing. The [facility] Testing site is located at the corner of [address] [facility]. You will only be called if COVID results are positive and your surgeon may reschedule your elective surgery date. Patients may have clear liquids (water, carbonated beverages, clear teas, apple juice) until 3 hours prior to surgery with a maximum of 20 ounces. - No food from midnight until time of surgery - Infants may have breast milk until 4 hours before surgery, infant formula 6 hours prior to surgery. - Children will be allowed to drink immediately following surgery. If applicable, please bring a bottle or sippy cup to assist with drinking. Juice, water, soda, and popsicles are readily available. For infants on formula, please bring formula the day of surgery. Pacifiers are allowed. Take the following medications with a SIP of water the morning of surgery: __SYMBICORT INHALER, ALBUTEROL INHALER NEEDED,ALPRAZOLAM, CARVEDILOL, HYDRALAZINE, PAROXETINE, TRAMADOL NEEDED Medications to discontinue per physician ____ALL VITAMINS/SUPPLEMENTS 3 DAYS PRE-OP, HOLD ASPIRIN PER DR ACKERMAN Date to take last dose Please no make-up, nail latvian, hairspray, perfume, deodorant, or body powder the day of surgery. No jewelry (including any body piercings) or valuables the day of surgery, leave them at home. Please take a shower or bath the night before, or the morning of, surgery with an antibacterial soap. Wear comfortable, loose fitting clothing. Children are encouraged to wear pajamas. - Jewelry must be removed prior to entering the operating room. Rings and piercings that are not removed may be cut off. - The hospital will not accept responsibility for valuables. - Please leave all valuables, including medications, at home the day of surgery. If you are going home after surgery, a licensed company driver must drive you home. - NO public transportation without another adult. - We recommend that an adult stay with you for 24 hours following discharge. - We also recommend that you do not drive, make important decision, drink alcoholic beverages, or take any drugs that were not prescribed by your health care provider for at least 24 hours after your discharge time. For Pediatric surgeries, we recommend two adults accompany the child home (only one inside the building at this time). Follow any additional instructions given to you from your surgeon. Telephone instructions given to __PATIENT & DAUGHTERADALI and asked if any additional questions and then verbalized understanding. Patient advised to call surgeon office or pre surgery nurse liaison [phone] if any additional questions.
--- NOTE | 2021-09-26 06:56 | PM.HPGS ---
History of Present Illness History of Present Illness Consent: Risks, benefits, and alternatives have been discussed and questions answered. Patient agrees to proceed with procedure. Chief complaint: Nasal Fx Narrative: Arabella Pike is a 75 year old femal about injury to her face with a comminuted deviated nasal fracture Review of Systems Review of Systems: All systems reviewed & are unremarkable except as noted in HPI and below PMFSH Past Medical History Medical History Anemia Anxiety Arthritis Asthma Bilateral cataracts Bronchitis CAD (coronary artery disease) CHF (congestive heart failure) Colitis COPD (chronic obstructive pulmonary disease) CVA (cerebral vascular accident) Depression Gastric ulcer GERD (gastroesophageal reflux disease) Hiatal hernia History of blood transfusion HLD (hyperlipidemia) HTN (hypertension) Myocardial infarction Pneumonia Type II diabetes mellitus UTI (urinary tract infection) Surgical History Surgical History H/O cardiac catheterization H/O dilation and curettage H/O heart artery stent x3 H/O tubal ligation H/O: hysterectomy History of appendectomy History of bladder surgery Suspension Family History Family History Mother Family history of diabetes mellitus in first degree relative Family history of primary malignant neoplasm of liver Family history of heart disease in male family member before age 55 Family history of hearing loss Family history of liver disease Diabetes mellitus Cerebrovascular accident Family history of pancreatic cancer Father Family history of emphysema Sibling Diabetes mellitus Other Depression Family history of alcoholism Family history of allergic disorder Family history of arthritis Family history of cardiovascular disease Family history of coronary artery disease Family history of malignant neoplasm Family history of mental disorder Family history of osteoporosis Hypertension Social History Social History Smoking status: Never smoker Alcohol intake: never Alcohol use details: HEAVY DRINKER, QUIT~2014 Substance use: never Living arrangements: assisted living Additional living arrangements comments: [facility] Gender identity (if verbalized by the patient): Female Spiritual care concerns: No Meds Home Medications and Allergies Home Medications Medication Instructions Recorded Confirmed Type IV infusion pump accessory #25 each 10/14/19 09/11/21 History acetaminophen 325 mg capsule 325 mg PO Q6H PRN 10/14/19 09/18/21 History albuterol sulfate 90 mcg/actuation 1 inhalation INHALATION DAILY 10/14/19 09/18/21 History aerosol inhaler alprazolam 0.5 mg tablet 1 mg PO TID PRN tablet 10/14/19 09/18/21 History aspirin 81 mg tablet,delayed 81 mg PO DAILY 10/14/19 09/18/21 History release atorvastatin 40 mg tablet 40 mg PO DAILY 10/14/19 09/18/21 History budesonide-formoterol HFA 80 2 puff INHALATION Q12H 10/14/19 09/18/21 History mcg-4.5 mcg/actuation aerosol inhaler carvedilol 25 mg tablet 25 mg PO BID tablet 10/14/19 09/18/21 History donepezil 5 mg tablet 5 mg PO ONCE 10/14/19 09/18/21 History furosemide 20 mg tablet 20 mg PO QAM tablet 10/14/19 09/18/21 History glipizide 2.5 mg tablet, extended 2.5 mg PO DAILY 10/14/19 09/18/21 History release 24 hr glucose 4 gram chewable tablet 4 gm PO Q15M PRN 10/14/19 09/18/21 History hydralazine 25 mg tablet 25 mg PO BID tablet 10/14/19 09/18/21 History insulin glargine 100 unit/mL (3 40 unit SUB-Q HS 10/14/19 09/18/21 History mL) subcutaneous pen ipratropium 0.5 mg-albuterol 3 mg 3 ml INHALATION Q6H PRN 10/14/19 09/18/21 History (2.5 mg base)/3 mL nebulization soln mag
[2021-09-28] VITALS (8 sets, daily range): BP systolic 98–148; BP diastolic 55–78; PULSE 71–82; RESP 16–25; TEMP 36.1–36.7; O2SAT 96–100
--- NOTE | 2021-09-28 05:58 | WPDHPUPDATE1 ---
History and Physical Update Update Date/Time: 09/28/21 05:58 History and Physical has been reviewed, including an updated exam of the patient. There are NO changes in the patient's condition. Risks, benefits, and alternatives have been discussed and questions answered. Patient agrees to proceed with procedure.
[2021-09-28] MEDS: LACTATED RINGERS 1,000 ML 30 ML IV CONT (08:52)
--- NOTE | 2021-09-28 09:08 | WPDANESEPPF ---
Anes - Initial Pre Proc Eval Procedure: Operation Date: 09/28/21 09:30 Proposed Procedures p Closed Reduction Nasal Fracture - Arthur Calderón MD Date/Time: 09/28/21 09:08 Surgeon: Arthur Calderón MD Pre Op Diagnosis: Nasal Fx Patient Data Age: 75 Gender: F Height: 1.63 m Weight: 83.85 kg Last Vital Signs Temp 36.1 C L 09/28/21 07:51 Pulse 82 09/28/21 07:51 Resp 16 09/28/21 07:51 BP 138/63 09/28/21 07:51 Pulse Ox 96 09/28/21 07:51 Allergies Allergy/AdvReac Type Severity Reaction Status Date / Time meperidine AdvReac Mild Diarrhea Verified 09/28/21 08:22 Home Medications Medication Instructions Recorded Confirmed Type acetaminophen 325 mg capsule 325 mg PO Q6H PRN 10/14/19 09/28/21 History albuterol sulfate 90 mcg/actuation 1 inhalation INHALATION DAILY 10/14/19 09/28/21 History aerosol inhaler alprazolam 0.5 mg tablet 1 mg PO TID PRN tablet 10/14/19 09/28/21 History aspirin 81 mg tablet,delayed 81 mg PO DAILY 10/14/19 09/28/21 History release atorvastatin 40 mg tablet 40 mg PO DAILY 10/14/19 09/28/21 History budesonide-formoterol HFA 80 2 puff INHALATION Q12H 10/14/19 09/28/21 History mcg-4.5 mcg/actuation aerosol inhaler carvedilol 25 mg tablet 25 mg PO BID tablet 10/14/19 09/28/21 History donepezil 5 mg tablet 5 mg PO ONCE 10/14/19 09/28/21 History furosemide 20 mg tablet 20 mg PO QAM tablet 10/14/19 09/28/21 History glipizide 2.5 mg tablet, extended 2.5 mg PO DAILY 10/14/19 09/28/21 History release 24 hr glucose 4 gram chewable tablet 4 gm PO Q15M PRN 10/14/19 09/28/21 History hydralazine 25 mg tablet 25 mg PO BID tablet 10/14/19 09/28/21 History insulin glargine 100 unit/mL (3 40 unit SUB-Q HS 10/14/19 09/28/21 History mL) subcutaneous pen ipratropium 0.5 mg-albuterol 3 mg 3 ml INHALATION Q6H PRN 10/14/19 09/28/21 History (2.5 mg base)/3 mL nebulization soln magnesium carbonate 250 mg capsule 250 mg PO DAILY 10/14/19 09/28/21 History methocarbamol 750 mg tablet 750 mg PO BID 10/14/19 09/28/21 History montelukast 10 mg tablet 10 mg PO DAILY 10/14/19 09/28/21 History multivitamin 1 tablet PO DAILY 10/14/19 09/28/21 History nebulizer and compressor #1 each 10/14/19 09/27/21 History nitroglycerin 0.4 mg sublingual 0.4 mg SUBLINGUAL Q5M PRN 10/14/19 09/28/21 History tablet pantoprazole 40 mg tablet,delayed 40 mg PO DAILY tablet 10/14/19 09/28/21 History release paroxetine HCl 40 mg tablet 40 mg PO DAILY 10/14/19 09/28/21 History sitagliptin 100 mg tablet 100 mg PO QAM 10/14/19 09/28/21 History vitamin B complex 1 tablet PO DAILY 10/14/19 09/28/21 History polyethylene glycol 3350 [Miralax] 17 gm PO BID PRN 09/18/21 09/28/21 History tramadol 50 mg PO BID 09/18/21 09/28/21 History Laboratory Tests 09/28/21 08:30 Sodium Pending Potassium Pending Chloride Pending Carbon Dioxide Pending Anion Gap Pending BUN Pending Creatinine Pending Estim Creat Clear Calc Pending Estimated GFR Pending Glucose Pending Calcium Pending Patient hx anesthesia problems: none Family hx anesthesia problems: none Results Review: All pre-operative results and documents have been reviewed as part of the pre-operative evaluation. [facility] Past Medical History Medical History Anemia Anxiety Arthritis Asthma Bilateral cataracts Bronchitis CAD (coronary artery disease) CHF (congestive heart failure) Closed left hand fracture third and fourth metacarpal shafts Colitis COPD (chronic obstructive pulmonary disease) CVA (cerebral vascular accident) Depression Diabetes Gastric ulcer GERD (gastroesophageal reflux disease) Hiatal hernia History of blood transfusion HLD (hyperlipidemia) HTN (hypertension) Myocardial infarction Pneumonia Type II diabetes mellitus UTI (urinary tract infection) Surgical History Surgical History
[2021-09-28 09:14] LABS: Anion Gap 6 mmol/L (8-16); Blood Urea Nitrogen 18 mg/dL (7-17); Calcium 9.1 mg/dL (8.4-10.2); Carbon Dioxide 32 mmol/L (22-30); Chloride 102 mmol/L (98-107); Estimated CRCL calculation 38 ml/min; Estimated Glomerular Filt Rate 44; Glucose 148 mg/dL (65-110); Potassium 3.6 mmol/L (3.4-5.0); Sodium 140 mmol/L (137-145)
--- NOTE | 2021-09-28 10:05 | SUR.PREOP ---
pt informed of delay in procedure.
--- NOTE | 2021-09-28 10:21 | W.PM.PROC2 ---
Procedure Note - Detailed Date of Procedure 09/28/21 Pre-op Diagnosis Nasal Fx Post-op Diagnosis same Procedure Performed Close reduction nasal fracture Surgeon Arthur Calderón MD Description of Procedure After induction general anesthesia with digital pressure the nasal pyramid was cracked back into a midline position echo plastic dressing placed on
[2021-09-28 10:40] LABS: Glucose Point of Care 134 mg/dl (65-105)
[2021-09-28] MEDS: fentaNYL CITRATE INJ (*CRX) 100 MCG/2 ML VIAL 25 MCG IV PUSH (11:04)
== END 2021-09-28 12:45 | disposition home or self-care (01) ==
PROVIDERS: Anesthesiology; PCP Nurse Practitioner Family; Visit Provider Otolaryngology
PROC: 0NSBXZZ Reposition Nasal Bone, External Approach (ICD-10-PCS; CPT 21315; principal; 2021-09-28 09:30)
DX: S02.2XXA Fracture of nasal bones, initial encounter for closed fracture (principal); W19.XXXA Unspecified fall, initial encounter; Z79.82 Long term (current) use of aspirin; Z79.51 Long term (current) use of inhaled steroids; D64.9 Anemia, unspecified; F41.9 Anxiety disorder, unspecified; I25.10 Atherosclerotic heart disease of native coronary artery without angina pectoris; I50.9 Heart failure, unspecified; J44.9 Chronic obstructive pulmonary disease, unspecified; Z86.73 Personal history of transient ischemic attack (TIA), and cerebral infarction without residual deficits; I25.2 Old myocardial infarction; E66.9 Obesity, unspecified; Z68.31 Body mass index [BMI] 31.0-31.9, adult; Z79.4 Long term (current) use of insulin
CPT/HCPCS: 21337; 36415; 80048; 82948; A9270; J2704; J3010; J7120

== ENCOUNTER 2021-11-29 11:21 | Emergency (ER) | payer MEDICARE, MEDICAID, SELFPAY ==
[2021-11-29] VITALS (24 sets, daily range): BP systolic 113–130; BP diastolic 67–78; PULSE 74–80; RESP 16–22; TEMP 36.6–36.7; O2SAT 96–99
--- NOTE | ~2021-11-29 | CT_ITS ---
EXAMINATION: CT brain wo con INDICATION: Confusion, transient alteration of awareness COMPARISON: 09/07/2021 TECHNIQUE: Standard unenhanced head CT. The dose-length product (DLP) was 605.33 mGy-cm. The mA was a djusted according to patient size. Iterative reconstruction technique was employed. FINDINGS: There is no acute intraparenchymal hemorrhage. No evidence of mass lesion. No evidence of a cute infarction. There are areas of prior infarction in the bilateral basal ganglia and right caudate nucleus. There is moderate periventricular and subcortical hypodensity probably related to small ves sinai ischemic disease. There is moderate prominence of the sulci and ventricles related to cerebral at rophy. Intracranial calcified cerebral atherosclerosis is noted. There are no extra-axial collections . There is no mass effect or midline shift. Changes in the globes are likely from ocular lens surgery . The visualized sinuses and mastoid air cells are well aerated. IMPRESSION: 1. Areas of prior infarction without acute intracranial abnormality. 2. Age related findings. Reviewed, dictated and finalized at location F.
--- NOTE | 2021-11-29 12:08 | ECG_ITS ---
Measurements Intervals [place] Rate: 73 P: 42 NC: 190 QRS: 11 QRSD: 84 T: 41 QT: 414 QTc: 459 Interpretive Statements SINUS RHYTHM NORMAL ECG NO PREVIOUS ECG AVAILABLE FOR COMPARISON Electronically Signed On 11-29-2021 18:07:26 CDT by Bob Grande M.D.
[2021-11-29 12:41] LABS: Appearance Urine Clear (Clear); Bilirubin Urine Negative (Negative); Blood Urine Negative (Negative); Color Urine Yellow (Yellow); Glucose Urine UA Negative (Negative); Ketones Urine Trace mg/dL (Negative); Leukocyte Esterase Ur Negative LEU/UL (Negative); Nitrate Urine Negative (Negative); Protein Urine Negative (Negative); Specific Grav Ur 1.015 (1.001-1.035); Urobilinogen Urine 0.2 mg/dL (<2.0)
[2021-11-29 12:47] LABS: Bacteria Urine Trace /hpf; Mucus Urine Rare /lpf; RBC Urine 0-2 /hpf (0-2); WBC Urine 0-3 /hpf
[2021-11-29 12:48] LABS: Add Urine Microscopic? YES
[2021-11-29 13:31] LABS: Basophils Percent Auto 0.3 % (0.2-1.2); Eosinophils Absolute Auto 0.3 K/mm3 (0-0.3); Eosinophils Percent Auto 1.9 % (0-4.4); Hematocrit 37.1 % (37.0-47.0); Hemoglobin 12.1 g/dL (12.0-15.0); Immature Granulocyte Absolute 0.07 K/mm3 (0.00-0.031); Immature Granulocyte Percent A 0.5 % (0-0.5); Lymphocytes Absolute Auto 1.92 K/mm3 (0.9-3.2); Lymphocytes Percent Auto 12.5 % (18.3-44.2); Mean Corpuscular HGB Conc 32.6 g/dl (32-36); Mean Corpuscular Hemoglobin 30.7 pg (26-34); Mean Corpuscular Volume 94.2 fl (80-100); Mean Platelet Volume 10.2 fl (7.4-10.4); Monocytes Percent Auto 6.2 % (2.6-8.5); Neutrophils Absolute Auto 12.1 K/mm3 (1.3-6.7); Neutrophils Percent Auto 78.6 % (45.5-73.1); Platelet Count Result 265 k/mm3 (150-375); Red Blood Count 3.94 M/mm3 (4.2-5.4); Red Cell Distribution Width 12.2 % (11.5-14.5); White Blood Count 15.4 K/mm3 (4.5-10.0)
[2021-11-29] MEDS: SODIUM CHLORIDE 0.9% IV 1,000 ML 150 ML IV CONT (13:33)
[2021-11-29 13:41] LABS: Alanine Aminotransferase 15 U/L (4-35); Alkaline Phosphatase 114 U/L (38-126); Anion Gap 9 mmol/L (8-16); Aspartate Amino Transferase 23 U/L (14-36); Blood Urea Nitrogen 16 mg/dL (7-17); Calcium 8.7 mg/dL (8.4-10.2); Carbon Dioxide 30 mmol/L (22-30); Chloride 96 mmol/L (98-107); Estimated Glomerular Filt Rate 54; Glucose 180 mg/dL (65-110); Lactic Acid Reflex 0.7 mmol/L (0.7-2.1); Potassium 3.6 mmol/L (3.4-5.0); Sodium 135 mmol/L (137-145)
--- NOTE | 2021-11-29 15:32 | ED.GENADULT ---
HPI - General Adult General Chief complaint: Altered Mental Status Stated complaint: urinary symptoms Time Seen by Provider: 11/29/21 12:07 Source: patient Mode of arrival: EMS Limitations: no limitations History of Present Illness HPI narrative: 76-year-old with a history of CAD, CHF, arthritis here with complaints of having hallucinations since this morning. Patient states that somebody is trying to operate on her. She also thinks she may be having a urinary tract infection. For the past 4 days she is having difficulty in walking because of pain in the lower back. She denies any fever or chills no history of trauma. Onset (ago): day(s) (1) Severity: moderate Exacerbating factors: none Associated symptoms: denies other symptoms and confusion Related Data Home Medications Medication Instructions Recorded Confirmed acetaminophen 325 mg capsule 325 mg PO Q6H PRN 10/14/19 10/25/21 albuterol sulfate 90 mcg/actuation 1 inhalation INHALATION DAILY 10/14/19 10/25/21 aerosol inhaler alprazolam 0.5 mg tablet 1 mg PO TID PRN tablet 10/14/19 10/25/21 aspirin 81 mg tablet,delayed 81 mg PO DAILY 10/14/19 10/25/21 release atorvastatin 40 mg tablet 40 mg PO DAILY 10/14/19 10/25/21 budesonide-formoterol HFA 80 2 puff INHALATION Q12H 10/14/19 10/25/21 mcg-4.5 mcg/actuation aerosol inhaler carvedilol 25 mg tablet 25 mg PO BID tablet 10/14/19 10/25/21 donepezil 5 mg tablet 5 mg PO ONCE 10/14/19 10/25/21 furosemide 20 mg tablet 20 mg PO QAM tablet 10/14/19 10/25/21 glipizide 2.5 mg tablet, extended 2.5 mg PO DAILY 10/14/19 10/25/21 release 24 hr glucose 4 gram chewable tablet 4 gm PO Q15M PRN 10/14/19 10/25/21 hydralazine 25 mg tablet 25 mg PO BID tablet 10/14/19 10/25/21 insulin glargine 100 unit/mL (3 40 unit SUB-Q HS 10/14/19 10/25/21 mL) subcutaneous pen ipratropium 0.5 mg-albuterol 3 mg 3 ml INHALATION Q6H PRN 10/14/19 10/25/21 (2.5 mg base)/3 mL nebulization soln magnesium carbonate 250 mg capsule 250 mg PO DAILY 10/14/19 10/25/21 methocarbamol 750 mg tablet 750 mg PO BID 10/14/19 10/25/21 montelukast 10 mg tablet 10 mg PO DAILY 10/14/19 10/25/21 multivitamin 1 tablet PO DAILY 10/14/19 10/25/21 nebulizer and compressor #1 each 10/14/19 10/25/21 nitroglycerin 0.4 mg sublingual 0.4 mg SUBLINGUAL Q5M PRN 10/14/19 10/25/21 tablet pantoprazole 40 mg tablet,delayed 40 mg PO DAILY tablet 10/14/19 10/25/21 release paroxetine HCl 40 mg tablet 40 mg PO DAILY 10/14/19 10/25/21 sitagliptin 100 mg tablet 100 mg PO QAM 10/14/19 10/25/21 vitamin B complex 1 tablet PO DAILY 10/14/19 10/25/21 polyethylene glycol 3350 [Miralax] 17 gm PO BID PRN 09/18/21 10/25/21 tramadol 50 mg PO BID 09/18/21 10/25/21 Allergies Allergy/AdvReac Type Severity Reaction Status Date / Time meperidine AdvReac Mild Diarrhea Verified 11/29/21 11:33 Review of Systems Review of Systems: All systems reviewed & are unremarkable except as noted in HPI and below Constitutional: Constitutional: Reports no additional constitutional complaints Eyes: Eyes: Reports no additional eye complaints ENT: Reports system reviewed and no additional complaints, except as documented Cardiovascular: Cardiovascular: Reports no additional cardiovascular complaints Respiratory: Respiratory: Reports no additional respiratory complaints Gastrointestinal: Gastrointestinal: Reports no additional gastrointestinal complaints Genitourinary: Genitourinary: Reports no additional female genitourinary complaints Musculoskeletal: Musculoskeletal: Reports no additional musculoskeletal complaints Integumentary/Breasts: Skin/Breast: Reports system reviewed and no additional complaints, except as docu PMFSH Past Medical History Medical History Anemia Anxiety Arthritis Asthma Bilateral cataracts Bronchitis CAD (coronary artery disease) CHF (congestive heart failure) Closed left hand fracture third and fourth metaca
--- NOTE | 2021-11-29 16:00 | PC.NURSE ---
Called report to TAMARA Worthy at [facility]. Updated on patient status, results of today's testing, discharge plan.
--- NOTE | 2021-11-29 16:03 | PC.NURSE ---
Spoke with patient's daughter Chelly per patient request. Chelly is on her way at this time for discharge.
== END 2021-11-29 16:40 ==
PROVIDERS: Emergency Provider Family Medicine; PCP Nurse Practitioner Family
DX: R44.3 Hallucinations, unspecified (principal); R53.1 Weakness; D64.9 Anemia, unspecified; F41.9 Anxiety disorder, unspecified; M19.90 Unspecified osteoarthritis, unspecified site; J45.909 Unspecified asthma, uncomplicated; I11.0 Hypertensive heart disease with heart failure; I50.9 Heart failure, unspecified; F32.9 Major depressive disorder, single episode, unspecified; K21.9 Gastro-esophageal reflux disease without esophagitis; E11.9 Type 2 diabetes mellitus without complications; Z79.4 Long term (current) use of insulin; I25.10 Atherosclerotic heart disease of native coronary artery without angina pectoris
CPT/HCPCS: 36415; 70450; 80053; 81001; 83605; 85025; 87040; 93005; 96360; 96361; 99284; J7030

== ENCOUNTER 2022-04-23 08:40 | Inpatient (IN) | payer MEDICARE, MEDICAID, SELFPAY ==
[2022-04-23] VITALS (17 sets, daily range): BP systolic 138–156; BP diastolic 67–74; PULSE 70–106; RESP 14–28; TEMP 36.1–36.6; O2SAT 94–99; BMI 32.4
--- NOTE | ~2022-04-23 | XR_ITS ---
EXAMINATION: XR chest 1V portable DATE: 04/23/2022 10:02 INDICATION: Shortness of breath. TECHNIQUE: A single frontal view of the chest was obtained. COMPARISON: Chest 2 views 05/25/2021 FINDINGS: There is mild atelectasis in the lower lung zones. No pleural effusion or pneumothorax. The heart size is normal. 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 IMPRESSION: 1. Mild atelectasis in the lower lung zones. Reviewed, dictated and finalized at location A.
--- NOTE | 2022-04-23 08:48 | ECG_ITS ---
Measurements Intervals [place] Rate: 75 P: 42 CA: 200 QRS: -35 QRSD: 139 T: 110 QT: 434 QTc: 487 Interpretive Statements SINUS RHYTHM LEFT AXIS DEVIATION LEFT BUNDLE BRANCH BLOCK BASELINE ARTIFACT- I, III, AVR, AVL, AVF, V5-V6 ABNORMAL ECG COMPARED TO ECG 11/29/2021 12:42:25 LEFT-AXIS DEVIATION NOW PRESENT LEFT BUNDLE BRANCH BLOCK NOW PRESENT Electronically Signed On 04-23-2022 12:27:44 CDT by Sd Conn D.O.
--- NOTE | 2022-04-23 08:54 | ED.SOB ---
HPI - SOB/Dyspnea General Chief Complaint: Shortness of Breath/Dyspnea Stated Complaint: difficulty breathing Time Seen by Provider: 04/23/22 08:54 Source: patient Mode of arrival: ambulatory Limitations: no limitations History of Present Illness HPI Narrative: Patient is a 76-year-old female with a history of hypertension, coronary artery disease, bronchitis/asthma/COPD, on home oxygen 2 L via nasal cannula nightly, presenting to the emergency department for evaluation of shortness of breath. Patient has had increasing shortness of breath, cough over the past week. Patient denies fever, chills, hemoptysis. Denies left-sided chest pain but does report some mild right-sided chest pain which has been chronic over the past several weeks She denies palpitations, current leg swelling, redness. Patient denies any radiation of the pain to the back, jaw, neck. Patient reports history of symptoms such as this in the past when she has been diagnosed with bronchitis. She denies history of recent known COVID infection or past COVID infection. She is vaccinated. Patient denies recent sick contacts. Related Data Home Medications Medication Instructions Recorded Confirmed acetaminophen 325 mg capsule 325 mg PO Q6H PRN Pain 10/14/19 12/27/21 albuterol sulfate 90 mcg/actuation 1 inhalation inhalation DAILY 10/14/19 12/27/21 aerosol inhaler alprazolam 0.5 mg tablet 1 mg PO TID PRN Anxiety 10/14/19 12/27/21 aspirin 81 mg tablet,delayed 81 mg PO DAILY 10/14/19 12/27/21 release (Adult Low Dose Aspirin) atorvastatin 40 mg tablet 40 mg PO DAILY 10/14/19 12/27/21 budesonide-formoterol HFA 80 2 puff inhalation Q12H 10/14/19 12/27/21 mcg-4.5 mcg/actuation aerosol inhaler (Symbicort) carvedilol 25 mg tablet (Coreg) 25 mg PO BID 10/14/19 12/27/21 donepezil 5 mg tablet 5 mg PO ONCE 10/14/19 12/27/21 furosemide 20 mg tablet 20 mg PO QAM 10/14/19 12/27/21 glipizide 2.5 mg tablet, extended 2.5 mg PO DAILY 10/14/19 12/27/21 release 24 hr glucose 4 gram chewable tablet 4 gm PO Q15M PRN Hypoglycemia 10/14/19 12/27/21 (Dex4 Glucose) hydralazine 25 mg tablet 25 mg PO BID 10/14/19 12/27/21 insulin glargine 100 unit/mL (3 40 unit subcut HS 10/14/19 12/27/21 mL) subcutaneous pen (Lantus Solostar U-100 Insulin) ipratropium 0.5 mg-albuterol 3 mg 3 ml inhalation Q6H PRN Dyspnea 10/14/19 12/27/21 (2.5 mg base)/3 mL nebulization soln magnesium carbonate 250 mg capsule 250 mg PO DAILY 10/14/19 12/27/21 methocarbamol 750 mg tablet 750 mg PO BID 10/14/19 12/27/21 montelukast 10 mg tablet 10 mg PO DAILY 10/14/19 12/27/21 multivitamin 1 tablet PO DAILY 10/14/19 12/27/21 nebulizer and compressor #1 ea 10/14/19 12/27/21 (InnoSpire Essence device) nitroglycerin 0.4 mg sublingual 0.4 mg sublingual Q5M PRN Chest 10/14/19 12/27/21 tablet Pain pantoprazole 40 mg tablet,delayed 40 mg PO DAILY 10/14/19 12/27/21 release paroxetine HCl 40 mg tablet 40 mg PO DAILY 10/14/19 12/27/21 sitagliptin 100 mg tablet (Januvia) 100 mg PO QAM 10/14/19 12/27/21 vitamin B complex 1 tablet PO DAILY 10/14/19 12/27/21 polyethylene glycol 3350 17 17 gm PO BID PRN Constipation 09/18/21 12/27/21 gram/dose oral powder (Miralax) tramadol 50 mg tablet 50 mg PO BID 09/18/21 12/27/21 Allergies Allergy/AdvReac Type Severity Reaction Status Date / Time meperidine AdvReac Mild Diarrhea Verified 04/23/22 08:52 Review of Systems Review of Systems: CONSTITUTIONAL: Denies fever, chills, or sweats. EYES: Denies visual changes, redness, or discharge. ENT: Denies rhinorrhea, reports congestion CARDIOVASCULAR: Reports right sided chest pain, denies left chest pain RESPIRATORY: Reports cough and shortness of breath, reports wheezing GASTROINTESTINAL: Denies abdominal pain, nausea, vomiting, or diarrhea. GENITOURINARY: Denies dysuria or hematuria. SKIN: Denies rash or itching. MUSCULOSKELETAL: Denies back pain, joint pain, or myalgia. NEUROLOGIC: Denies headache, numbness, or weaknes
[2022-04-23] MEDS: ALBUTEROL SULFATE NEB 2.5 MG/3 ML INH 5 MG INHALATION ×3 (09:03→20:29)
[2022-04-23] MEDS: SODIUM CHLORIDE 0.9% IV 500 ML 999 ML IV CONT (09:03)
[2022-04-23] MEDS: methylPREDNISolone SOD SUCC 125 MG VIAL IV PUSH (09:03)
[2022-04-23] MEDS: IPRATROPIUM BR 0.02% INH SOLN 0.5 MG/2.5 ML VIAL INHALATION ×3 (09:04→20:29)
[2022-04-23 09:23] LABS: Basophils Percent Auto 0.5 % (0.2-1.2); Eosinophils Absolute Auto 0.3 K/mm3 (0-0.3); Eosinophils Percent Auto 4.2 % (0-4.4); Hematocrit 37.3 % (37.0-47.0); Hemoglobin 12.4 g/dL (12.0-15.0); Immature Granulocyte Absolute 0.02 K/mm3 (0.00-0.031); Immature Granulocyte Percent A 0.3 % (0-0.5); Lymphocytes Absolute Auto 2.33 K/mm3 (0.9-3.2); Lymphocytes Percent Auto 30.7 % (18.3-44.2); Mean Corpuscular HGB Conc 33.2 g/dl (32-36); Mean Corpuscular Hemoglobin 31.6 pg (26-34); Mean Corpuscular Volume 94.9 fl (80-100); Mean Platelet Volume 10.1 fl (7.4-10.4); Monocytes Absolute Auto 0.6 K/mm3 (0.1-0.6); Monocytes Percent Auto 7.9 % (2.6-8.5); Neutrophils Absolute Auto 4.3 K/mm3 (1.3-6.7); Neutrophils Percent Auto 56.4 % (45.5-73.1); Platelet Count Result 238 k/mm3 (150-375); Red Blood Count 3.93 M/mm3 (4.2-5.4); Red Cell Distribution Width 12.3 % (11.5-14.5); White Blood Count 7.6 K/mm3 (4.5-10.0)
[2022-04-23 09:24] LABS: Alveolar/Arterial O2 Gradient 43.9 mmHg; Base Excess ABG -1.2 mEq/l (+/-2.0); Carboxyhemoglobin 0.2 % THb (0-2.0); Device NASAL CANNULA; Fractional Inspired Oxygen 28 %; HCO3 ABG 24.5 mEq/l (22.0-26.0); Methemoglobin ABG 0.1 %THb (0-1.5); Modified Allen's Test Pass; Oxygen Content ABG 17.7 %vol (16.0-22.0); Oxygen Saturation ABG 97.5 % (95.0-100.0); Oxyhemoglobin 96.7 % THb (90.0-100.0); PCO2 ABG 44.5 mmHg (35.0-45.0); PO2 ABG 103.2 mmHg (80.0-100.0); PO2 FiO2 Ratio Arterial Blood 3.69 %; Site Drawn LEFT RADIAL; Total Hemoglobin 12.9 g/dL (12.0-18.0); pH ABG 7.358 (7.350-7.450)
[2022-04-23 09:42] LABS: SARS-CoV-2 RNA PCR Negative
[2022-04-23 09:44] LABS: INR 1.1; Prothrombin Time 13.6 Seconds (11.1-14.7)
[2022-04-23 09:45] LABS: Partial Thromboplastin Time 34.4 SECONDS (22.3-36.8)
[2022-04-23 10:00] LABS: Alanine Aminotransferase 22 U/L (6-35); Albumin Level 3.8 g/dL (3.5-5.1); Alkaline Phosphatase 99 U/L (38-126); Anion Gap 13 mmol/L (8-16); Aspartate Amino Transferase 22 U/L (14-36); Bilirubin,Total 0.5 mg/dL (0.2-1.3); Blood Urea Nitrogen 18 mg/dL (7-17); Calcium 8.4 mg/dL (8.4-10.2); Carbon Dioxide 26 mmol/L (22-30); Chloride 102 mmol/L (98-107); Estimated CRCL calculation 40 ml/min; Estimated Glomerular Filt Rate 48; Glucose 164 mg/dL (65-110); NT Pro B Type Natriuretic Pept 94 pg/mL (5-100); Potassium 3.9 mmol/L (3.4-5.0); Sodium 141 mmol/L (137-145); Troponin I < 0.012 ng/mL (0.000-0.034)
--- NOTE | 2022-04-23 13:17 | ADMGEN ---
This patient, Arabella Pike, was admitted to [facility] Surg Room 325-01. Patient/family oriented to hospital policies and general routines including ID bracelet, bed and alarms, visiting hours, pain management, procedures, bathroom and other care routines, personal items, smoking policy, room service/diet, and visiting hours. Information on how to activate the Rapid Response Team has been discussed. Patient/Family are encouraged to report perceived risks to care and to ask questions if they do not understand what they are told or what they should do.
[2022-04-23 15:21] LABS: Troponin I < 0.012 ng/mL (0.000-0.034)
--- NOTE | 2022-04-23 16:30 | PM.IMHP ---
H&P: HPI History of Present Illness Date/Time: 04/23/22 16:30 Chief Complaint: Shortness of breath. Narrative: This is a 76-year-old female with asthma/COPD, hypertension, hyperlipidemia, insulin-dependent diabetes, and other comorbidities who presented to the emergency department via EMS from [facility] for evaluation of shortness of breath. She endorses increasing dyspnea on lesser and lesser exertion since last Saturday. Several days last week she had chills and myalgias though that has since improved. She has also had a cough productive of green-colored sputum in addition to sinus congestion. She has been using her inhalers and nebulizers twice a day however she continues to have pretty significant coughing and wheezing. she is typically on 2 liters nasal cannula at nighttime only however she has been wearing her oxygen consistently for the past several days. This morning she was so short of breath that EMS was summoned. On their arrival she was in a tripod position with audible wheezing. She was given a nebulizer and magnesium 2 grams IV in route to the hospital with some improvement she is being admitted in this setting for further treatment of asthma/COPD exacerbation. She denies fever, headache, sore throat, chest pain, pleuritic pain, nausea, vomiting, and diarrhea. No sick contacts or known exposure to COVID or influenza. Review of Systems Review of Systems: Twelve systems were reviewed. Weight has remained stable. She typically ambulates with a walker at her facility but occasionally uses a cane. She does get short of breath when at the grocery store and she typically uses the cart to help her get around. She has not noticed any significant lower extremity edema. No history of venous thromboembolism. She denies dysphagia and concerns for aspiration. Except as documented, all other systems were reviewed and are negative. [facility] Past Medical History Medical History (Updated 04/23/22 @ 22:17 by Madonna Yadav PA-C) Anemia Anxiety Arthritis Asthma Asthma-COPD overlap syndrome Cerebrovascular accident Chronic kidney disease, stage 3 Chronic respiratory failure with hypoxia, on home oxygen therapy On 2 liters nasal cannula at nighttime. Colitis Congestive heart failure Coronary artery disease Depression Dyslipidemia Gastric ulcer Gastroesophageal reflux disease Hiatal hernia Hypertension Insulin dependent type 2 diabetes mellitus Myocardial infarction Pneumonia Surgical History Surgical History (Updated 04/23/22 @ 15:33 by Madonna G. Gerling, PA-C) History of appendectomy History of bladder suspension procedure History of cardiac catheterization History of colonoscopy with polypectomy History of coronary artery stent placement History of dilation and curettage History of hysterectomy History of sinus surgery History of tubal ligation Family History Family History Mother Family history of diabetes mellitus in first degree relative Family history of primary malignant neoplasm of liver Family history of heart disease in male family member before age 55 Family history of hearing loss Family history of liver disease Diabetes mellitus Cerebrovascular accident Family history of pancreatic cancer Hypertension Father Family history of emphysema Sibling Diabetes mellitus Other Depression Family history of alcoholism Family history of allergic disorder Family history of arthritis Family history of cardiovascular disease Family history of coronary artery disease Family history of malignant neoplasm Family history of mental disorder Family history of osteoporosis Social History Social History (Updated 04/23/22 @ 22:14 by Madonna Yadav PA-C) Social History: Healthcare power of civil attorney: Alistair Martínez. Code status: Full code. Smoking status: Never smoker Second hand tobacco smoke exposure: Yes Alcohol
[2022-04-23] MEDS: MONTELUKAST SODIUM 10 MG TABLET PO (22:47)
[2022-04-23] MEDS: hydrALAZINE HCL 25 MG TABLET PO (22:48)
[2022-04-23] MEDS: ATORVASTATIN 20 MG TABLET PO (22:48)
[2022-04-23] MEDS: AZITHROMYCIN 250 MG TABLET 500 MG PO (22:48)
[2022-04-23] MEDS: carvediloL 25 MG TABLET PO (22:48)
[2022-04-23] MEDS: INSULIN GLARGINE (*BKC) 100 UNITS/ML 50 UNITS SUB-Q (22:52)
[2022-04-23 23:10] LABS: Glucose Point of Care 423 mg/dl (65-105)
[2022-04-23] MEDS: INSULIN ASPART (*BKC) 100 UNITS/ML 10 UNITS SUB-Q (23:26)
[2022-04-24] VITALS (16 sets, daily range): BP systolic 149–160; BP diastolic 58–64; PULSE 74–91; RESP 16–20; TEMP 36.1–36.2; O2SAT 94–97
--- NOTE | 2022-04-24 00:04 | PC.NURSE ---
Pt is able to ambulate to the bathroom without getting short of breath. Pt had blood sugar of 423, PA Madonna Yadav was notified. Order was placed for 10 units Novolog. Pt was treated. Pt was treated. Pt resting comfortably on 2L O2. Will continue to monitor pt.
[2022-04-24] MEDS: IPRATROPIUM BR 0.02% INH SOLN 0.5 MG/2.5 ML VIAL INHALATION ×5 (02:15→20:06)
[2022-04-24] MEDS: ALBUTEROL SULFATE NEB 2.5 MG/3 ML INH 5 MG INHALATION ×4 (02:15→20:06)
[2022-04-24 06:28] LABS: Hematocrit 35.9 % (37.0-47.0); Hemoglobin 12.2 g/dL (12.0-15.0); Mean Corpuscular Hemoglobin 31.3 pg (26-34); Mean Corpuscular Volume 92.1 fl (80-100); Mean Platelet Volume 10.3 fl (7.4-10.4); Platelet Count Result 233 k/mm3 (150-375); Red Cell Distribution Width 11.9 % (11.5-14.5); White Blood Count 12.4 K/mm3 (4.5-10.0)
[2022-04-24 06:46] LABS: Anion Gap 14 mmol/L (8-16); Blood Urea Nitrogen 21 mg/dL (7-17); Calcium 8.9 mg/dL (8.4-10.2); Carbon Dioxide 24 mmol/L (22-30); Chloride 96 mmol/L (98-107); Estimated CRCL calculation 44 ml/min; Estimated Glomerular Filt Rate 54; Glucose 251 mg/dL (65-110); Magnesium 2.1 mg/dL (1.6-2.3); Potassium 3.9 mmol/L (3.4-5.0); Sodium 134 mmol/L (137-145)
[2022-04-24 07:42] LABS: Glucose Point of Care 266 mg/dl (65-105)
[2022-04-24 07:44] LABS: Thyroid Stimulating Hormone Reflex 0.281 uIU/mL (0.465-4.68)
[2022-04-24] MEDS: FLUTICASONE/SALMETEROL 45-21 MCG INHALER 1 PUFF 2 PUFF INHALATION ×2 (08:01→20:06)
[2022-04-24 08:11] LABS: Hemoglobin A1C 7.5 % (<5.7)
[2022-04-24] MEDS: INSULIN ASPART (*BKC) 100 UNITS/ML SUB-Q ×3 (08:24→16:59)
[2022-04-24] MEDS: FUROSEMIDE 20 MG TABLET PO (08:28)
[2022-04-24] MEDS: glipiZIDE 5 MG TABLET 10 MG PO (08:28)
[2022-04-24] MEDS: ASPIRIN 81 MG ENTERIC TABLET PO (08:28)
[2022-04-24] MEDS: DONEPEZIL HCL 5 MG TABLET PO (08:28)
[2022-04-24] MEDS: carvediloL 25 MG TABLET PO ×2 (08:28→20:39)
[2022-04-24] MEDS: MULTIVITAMINS THERAPEUTIC TAB (*BKC) 1 TABLET PO (08:29)
[2022-04-24] MEDS: PANTOPRAZOLE 40 MG TABLET PO (08:29)
[2022-04-24] MEDS: PARoxetine 20 MG TABLET 40 MG PO (08:29)
[2022-04-24] MEDS: MAGNESIUM OXIDE 400 MG TABLET PO (08:29)
[2022-04-24] MEDS: VITAMIN B COMPLEX CAPSULE 1 CAP PO (08:29)
[2022-04-24] MEDS: ALPRAZolam (*CRX) 0.5 MG TABLET 1 MG PO ×3 (08:32→23:24)
--- NOTE | 2022-04-24 09:45 | PM.IMPN ---
Progress Note: A&P Assessment and Plan (1) Asthma with COPD with exacerbation: Code(s): J44.1 - Chronic obstructive pulmonary disease with (acute) exacerbation; J45.901 - Unspecified asthma with (acute) exacerbation Status: Acute Assessment and Plan: Complaints of shortness of breath, increased sputum production, increased wheezes Appears to be in an acute exacerbation of COPD Steroids on board Azithromycin for bacterial coverage Neb treatments sputum culture Supplemental oxygen, wean to maintain saturations >90% (2) Hypoxia: Code(s): R09.02 - Hypoxemia Status: Acute Assessment and Plan: Increased oxygen demand Currently on 2L Wears 2L at night at home Continue to trend SPO2 (3) Insulin dependent type 2 diabetes mellitus: Code(s): E11.9 - Type 2 diabetes mellitus without complications; Z79.4 - terminologist (current) use of insulin Status: Acute Assessment and Plan: Current glucose 251 Continue home medications Trend glucose Hypoglycemia protocol Accu cheks Adjust therapy as indicated (4) Hypertension: Code(s): I10 - Essential (primary) hypertension Status: Acute Assessment and Plan: Current 160/58 Continue home medication trend BP Adjust therapy as indicated (5) Chronic kidney disease, stage 3: Code(s): N18.30 - Chronic kidney disease, stage 3 unspecified Status: Acute Assessment and Plan: BUN/Cr currently at 21/1.00 Trend labs Avoid nephrotoxic medications Stable right now Time Spent With Patient Time with patient: Greater than 35 minutes Subjective Date/time seen: 04/24/22944 Interval history: 04/24/22944 Patient stated that she is feeling better today than she was yesterday. She is still complaining that she is short of breath. She denies any chest pain, nausea, vomiting, weakness, or fatigue. She also stated that she is having problems with urination, and stated that it hurts when she urinates and that it also takes a while to get going. She still has a cough that is green and brown. She stated that he abdomen hurt however she had a BM and she feels better. She did not sleep and feels tired. 04/23/22? 16:30 This is a 76-year-old female with asthma/COPD, hypertension, hyperlipidemia, insulin-dependent diabetes, and other comorbidities who presented to the emergency department via EMS from [facility] for evaluation of shortness of breath. She endorses increasing dyspnea on lesser and lesser exertion since last Saturday. Several days last week she had chills and myalgias though that has since improved. She has also had a cough productive of green-colored sputum in addition to sinus congestion. She has been using her inhalers and nebulizers twice a day however she continues to have pretty significant coughing and wheezing. she is typically on 2 liters nasal cannula at nighttime only however she has been wearing her oxygen consistently for the past several days. This morning she was so short of breath that EMS was summoned. On their arrival she was in a tripod position with audible wheezing. She was given a nebulizer and magnesium 2 grams IV in route to the hospital with some improvement she is being admitted in this setting for further treatment of asthma/COPD exacerbation. She denies fever, headache, sore throat, chest pain, pleuritic pain, nausea, vomiting, and diarrhea. No sick contacts or known exposure to COVID or influenza. Review of Systems Review of Systems: All systems reviewed & are unremarkable except as noted in HPI and below Exam Const: General: cooperative, healthy appearing, no acute distress, well developed, alert and awake Nutritional Appearance: well nourished Orientation/consciousness: patient oriented x3 Limitations: no limitations HENMT: Head: normal to inspection Ears: hearing grossly
[2022-04-24] MEDS: predniSONE 20 MG TABLET 60 MG PO (09:53)
[2022-04-24] MEDS: hydrALAZINE HCL 25 MG TABLET PO ×2 (09:53→20:39)
[2022-04-24 10:20] LABS: Free T4 Free Thyroxine Reflex 1.56 ng/dL (0.78-2.19)
[2022-04-24 11:19] LABS: Total Triiodothyronine (T3) 0.81 NG/ML (0.97-1.69)
[2022-04-24 11:24] LABS: Glucose Point of Care 379 mg/dl (65-105)
[2022-04-24] MEDS: AZITHROMYCIN 250 MG TABLET PO (11:32)
[2022-04-24 16:28] LABS: Glucose Point of Care 376 mg/dl (65-105)
[2022-04-24] MEDS: INSULIN ASPART (*BKC) 100 UNITS/ML 10 UNITS SUB-Q (16:58)
--- NOTE | 2022-04-24 18:03 | PC.NURSE ---
1625 Delfino Chang PAPER [employer] MACHINE OPERATOR notified of glucose 379 this pm.
[2022-04-24 18:51] LABS: Glucose Point of Care 485 mg/dl (65-105)
[2022-04-24 18:51] LABS: Glucose Point of Care 454 mg/dl (65-105)
--- NOTE | 2022-04-24 18:54 | PC.NURSE ---
Delfino Chang Diesel Engine Assembler notified of glucose 454.
[2022-04-24] MEDS: INSULIN ASPART (*BKC) 100 UNITS/ML 16 UNITS SUB-Q (19:10)
[2022-04-24] MEDS: SODIUM CHLORIDE 0.9% IV 250 ML IV CONT (20:37)
[2022-04-24] MEDS: ATORVASTATIN 20 MG TABLET PO (20:39)
[2022-04-24] MEDS: MONTELUKAST SODIUM 10 MG TABLET PO (20:39)
[2022-04-24 21:35] LABS: Glucose Point of Care 373 mg/dl (65-105)
[2022-04-24] MEDS: INSULIN GLARGINE (*BKC) 100 UNITS/ML 50 UNITS SUB-Q (21:48)
--- NOTE | 2022-04-24 22:07 | PC.NURSE ---
Delfino Chang contacted at 2107 and updated about pt blood sugar. Will recheck pt blood sugar at 0200. Will continue to monitor pt.
[2022-04-25] VITALS (18 sets, daily range): BP systolic 132–141; BP diastolic 55–84; PULSE 70–89; RESP 16–22; TEMP 36.1–36.5; O2SAT 94–97
[2022-04-25 01:31] LABS: Glucose Point of Care 206 mg/dl (65-105)
[2022-04-25] MEDS: ALBUTEROL SULFATE NEB 2.5 MG/3 ML INH 5 MG INHALATION ×4 (02:25→20:41)
[2022-04-25] MEDS: IPRATROPIUM BR 0.02% INH SOLN 0.5 MG/2.5 ML VIAL INHALATION ×4 (02:25→20:40)
--- NOTE | 2022-04-25 03:19 | PC.NURSE ---
Pt's blood sugar was 454 at the beginning of the shift. Pt was treated with 16 units novolog. Pt was rechecked 2 hours later and BG was 373. Pt was rechecked at 0113 and was down to 206. Pt has been stand by assist. Pt resting in bed with 2L O2 on. Will continue to monitor pt.
[2022-04-25 06:54] LABS: Alanine Aminotransferase 22 U/L (6-35); Albumin Level 3.3 g/dL (3.5-5.1); Alkaline Phosphatase 77 U/L (38-126); Anion Gap 11 mmol/L (8-16); Aspartate Amino Transferase 24 U/L (14-36); Bilirubin,Total 0.4 mg/dL (0.2-1.3); Blood Urea Nitrogen 25 mg/dL (7-17); Calcium 9.1 mg/dL (8.4-10.2); Carbon Dioxide 22 mmol/L (22-30); Chloride 98 mmol/L (98-107); Estimated CRCL calculation 44 ml/min; Estimated Glomerular Filt Rate 54; Glucose 189 mg/dL (65-110); Magnesium 2.3 mg/dL (1.6-2.3); Sodium 131 mmol/L (137-145)
[2022-04-25 07:42] LABS: Glucose Point of Care 173 mg/dl (65-105)
[2022-04-25] MEDS: predniSONE 20 MG TABLET 60 MG PO (08:17)
[2022-04-25] MEDS: ASPIRIN 81 MG ENTERIC TABLET PO (08:18)
[2022-04-25] MEDS: AZITHROMYCIN 250 MG TABLET PO (08:18)
[2022-04-25] MEDS: DONEPEZIL HCL 5 MG TABLET PO (08:18)
[2022-04-25] MEDS: FUROSEMIDE 20 MG TABLET PO (08:18)
[2022-04-25] MEDS: MULTIVITAMINS THERAPEUTIC TAB (*BKC) 1 TABLET PO (08:19)
[2022-04-25] MEDS: glipiZIDE 5 MG TABLET 10 MG PO (08:19)
[2022-04-25] MEDS: PANTOPRAZOLE 40 MG TABLET PO (08:19)
[2022-04-25] MEDS: PARoxetine 20 MG TABLET 40 MG PO (08:19)
[2022-04-25] MEDS: VITAMIN B COMPLEX CAPSULE 1 CAP PO (08:20)
[2022-04-25] MEDS: MAGNESIUM OXIDE 400 MG TABLET PO (08:20)
[2022-04-25] MEDS: hydrALAZINE HCL 25 MG TABLET PO ×2 (08:47→20:30)
[2022-04-25] MEDS: carvediloL 25 MG TABLET PO ×2 (08:48→20:30)
[2022-04-25] MEDS: FLUTICASONE/SALMETEROL 45-21 MCG INHALER 1 PUFF 2 PUFF INHALATION ×2 (09:07→20:41)
[2022-04-25 09:10] LABS: Basophils Percent Auto 0.2 % (0.2-1.2); Eosinophils Percent Auto 0.1 % (0-4.4); Hematocrit 37.3 % (37.0-47.0); Hemoglobin 12.2 g/dL (12.0-15.0); Immature Granulocyte Absolute 0.09 K/mm3 (0.00-0.031); Immature Granulocyte Percent A 0.6 % (0-0.5); Lymphocytes Absolute Auto 2.79 K/mm3 (0.9-3.2); Mean Corpuscular HGB Conc 32.7 g/dl (32-36); Mean Corpuscular Hemoglobin 31.4 pg (26-34); Mean Corpuscular Volume 96.1 fl (80-100); Monocytes Absolute Auto 0.7 K/mm3 (0.1-0.6); Monocytes Percent Auto 4.7 % (2.6-8.5); Neutrophils Absolute Auto 11.8 K/mm3 (1.3-6.7); Neutrophils Percent Auto 76.4 % (45.5-73.1); Platelet Count Result 218 k/mm3 (150-375); Red Blood Count 3.88 M/mm3 (4.2-5.4); Red Cell Distribution Width 12.1 % (11.5-14.5); White Blood Count 15.5 K/mm3 (4.5-10.0)
[2022-04-25] MEDS: ALPRAZolam (*CRX) 0.5 MG TABLET 1 MG PO ×3 (09:41→20:46)
[2022-04-25 11:42] LABS: Glucose Point of Care 248 mg/dl (65-105)
[2022-04-25] MEDS: INSULIN ASPART (*BKC) 100 UNITS/ML SUB-Q ×2 (11:53→16:50)
--- NOTE | 2022-04-25 14:58 | PM.IMPN ---
Progress Note: A&P Assessment and Plan (1) Asthma with COPD with exacerbation: Code(s): J44.1 - Chronic obstructive pulmonary disease with (acute) exacerbation; J45.901 - Unspecified asthma with (acute) exacerbation Status: Acute Assessment and Plan: patient with history of asthma -COPD overlap syndrome presented with increased wheezing and sputum production, consistent with COPD exacerbation continue p.o. prednisone 60 mg daily, weaned to 40 mg daily tomorrow morning continue course of p.o. azithromycin continue nebulizers sputum culture is pending maintaining adequate oxygenation on home settings (2) Chronic respiratory failure with hypoxia, on home oxygen therapy: Code(s): J96.11 - Chronic respiratory failure with hypoxia; Z99.81 - Dependence on supplemental oxygen Status: Acute Assessment and Plan: patient on 2 L supplemental oxygen at all times continue supplemental O2 monitor oxygenation (3) Dysuria: Code(s): R30.0 - Dysuria Status: Acute Assessment and Plan: patient complains of dysuria obtain UA with reflex culture further recommendations pending UA (4) Insulin dependent type 2 diabetes mellitus: Code(s): E11.9 - Type 2 diabetes mellitus without complications; Z79.4 - correction (current) use of insulin Status: Acute Assessment and Plan: A1c is 7.5. blood sugars have been elevated above target secondary to steroids continue Accu-Cheks, sliding scale insulin, hypoglycemic protocol continue home glipizide and Januvia monitor glucose trends (5) Hypertension: Code(s): I10 - Essential (primary) hypertension Status: Acute Assessment and Plan: blood pressures reviewed and have been stable. Last BP 141/78 continue home carvedilol and hydralazine monitor BP trends (6) Chronic kidney disease, stage 3: Code(s): N18.30 - Chronic kidney disease, stage 3 unspecified Status: Acute Assessment and Plan: renal function appears consistent with baseline continue to monitor Plan hopeful discharge tomorrow if continued improvement Subjective Date/time seen: 04/25/22 14:58 Interval history: date of service: 04/25/2022 Arabella Pike is 76-year-old female with a history of COPD, chronic respiratory failure on 2 L supplemental O2, CKD, CHF, CAD, hypertension, type 2 diabetes mellitus who is seen in follow-up for COPD exacerbation. She is feeling better today. She endorses that she still has some rattling in her chest. states that her wheezing has improved. She endorses cough productive of light green sputum. She is concerned that her blood sugars have been running high. She also endorses some mild lower pelvic pain and dysuria. Denies fever, chills, nausea, vomiting. She is tolerating her diet. She has been able to ambulate without difficulty Review of Systems Review of Systems: All systems reviewed & are unremarkable except as noted in HPI and below Exam Narrative: General: well-nourished, well-appearing 76-year-old female, sitting up in bed, comfortable, NARD Neuro: awake, alert and oriented x4, speech clear, no focal neuro deficits noted HEENMT: normocephalic, atraumatic, EOMI, sclerae anicteric Respiratory: faint expiratory wheezes, nonlabored breathing Cardio: regular rate, regular rhythm with S1-S2 Abdomen: nondistended, normoactive bowel sounds, soft, nontender to palpation Extremities: no edema, erythema, or tenderness to palpation, DP pulses 2+ bilaterally Skin: no rashes or lesions, warm and dry Psych: appropriate mood and affect, judgment and insight intact Objective Data Vital Signs Vital Signs: Vital Signs - 24 hr 04/24/22 15:16 04/24/22 15:21 04/24/22 15:22 Temperature Pulse Rate 85 91 89 Respiratory Rate 18 18 18 Blood Pressure Pulse Oximetry Oxygen Delivery Oxygen Flow Rate 04/24/22 20:07 04/24
[2022-04-25 16:55] LABS: Glucose Point of Care 368 mg/dl (65-105)
[2022-04-25] MEDS: ATORVASTATIN 20 MG TABLET PO (20:30)
[2022-04-25] MEDS: MONTELUKAST SODIUM 10 MG TABLET PO (20:30)
[2022-04-25] MEDS: INSULIN GLARGINE (*BKC) 100 UNITS/ML 50 UNITS SUB-Q (20:38)
[2022-04-25] MEDS: INSULIN ASPART (*BKC) 100 UNITS/ML 8 UNITS SUB-Q ×2 (20:38→23:39)
[2022-04-25] MEDS: ACETAMINOPHEN 325 MG TABLET 650 MG PO (20:50)
[2022-04-25 21:03] LABS: Glucose Point of Care 410 mg/dl (65-105)
[2022-04-25 21:44] LABS: Appearance Urine Clear (Clear); Bilirubin Urine Negative (Negative); Blood Urine Negative (Negative); Color Urine Yellow (Yellow); Glucose Urine UA 2+ mg/dL (Negative); Ketones Urine Negative (Negative); Leukocyte Esterase Ur Negative LEU/UL (Negative); Nitrate Urine Negative (Negative); Protein Urine Negative (Negative); Urobilinogen Urine 0.2 mg/dL (<2.0)
[2022-04-25 21:48] LABS: Add Urine Microscopic? YES; RBC Urine 0-2 /hpf (0-2); WBC Urine 0-3 /hpf
[2022-04-26] VITALS (8 sets, daily range): BP systolic 119; BP diastolic 62; PULSE 68–96; RESP 16–17; TEMP 36.7; O2SAT 92–98
[2022-04-26 00:09] LABS: Glucose Point of Care 441 mg/dl (65-105)
[2022-04-26] MEDS: IPRATROPIUM BR 0.02% INH SOLN 0.5 MG/2.5 ML VIAL INHALATION ×2 (02:38→09:07)
[2022-04-26] MEDS: ALBUTEROL SULFATE NEB 2.5 MG/3 ML INH 5 MG INHALATION ×2 (02:38→09:07)
[2022-04-26 06:24] LABS: Hematocrit 35.7 % (37.0-47.0); Hemoglobin 12.2 g/dL (12.0-15.0); Mean Corpuscular HGB Conc 34.2 g/dl (32-36); Mean Corpuscular Hemoglobin 31.7 pg (26-34); Mean Corpuscular Volume 92.7 fl (80-100); Platelet Count Result 188 k/mm3 (150-375); Red Blood Count 3.85 M/mm3 (4.2-5.4); Red Cell Distribution Width 12.1 % (11.5-14.5); White Blood Count 12.2 K/mm3 (4.5-10.0)
[2022-04-26 06:35] LABS: Anion Gap 10 mmol/L (8-16); Blood Urea Nitrogen 27 mg/dL (7-17); Calcium 9.1 mg/dL (8.4-10.2); Carbon Dioxide 27 mmol/L (22-30); Chloride 97 mmol/L (98-107); Estimated CRCL calculation 41 ml/min; Estimated Glomerular Filt Rate 48; Glucose 176 mg/dL (65-110); Potassium 3.8 mmol/L (3.4-5.0); Sodium 134 mmol/L (137-145)
[2022-04-26 07:30] LABS: Glucose Point of Care 132 mg/dl (65-105)
[2022-04-26] MEDS: glipiZIDE 5 MG TABLET 10 MG PO (08:52)
[2022-04-26] MEDS: PARoxetine 20 MG TABLET 40 MG PO (08:55)
[2022-04-26] MEDS: predniSONE 20 MG TABLET 40 MG PO (08:55)
[2022-04-26] MEDS: hydrALAZINE HCL 25 MG TABLET PO (08:56)
[2022-04-26] MEDS: PANTOPRAZOLE 40 MG TABLET PO (08:56)
[2022-04-26] MEDS: DONEPEZIL HCL 5 MG TABLET PO (08:56)
[2022-04-26] MEDS: MAGNESIUM OXIDE 400 MG TABLET PO (08:56)
[2022-04-26] MEDS: carvediloL 25 MG TABLET PO (08:57)
[2022-04-26] MEDS: ASPIRIN 81 MG ENTERIC TABLET PO (08:57)
[2022-04-26] MEDS: AZITHROMYCIN 250 MG TABLET PO (08:57)
[2022-04-26] MEDS: MULTIVITAMINS THERAPEUTIC TAB (*BKC) 1 TABLET PO (09:00)
[2022-04-26] MEDS: ALPRAZolam (*CRX) 0.5 MG TABLET 1 MG PO (09:00)
[2022-04-26] MEDS: FUROSEMIDE 20 MG TABLET PO (09:01)
[2022-04-26] MEDS: VITAMIN B COMPLEX CAPSULE 1 CAP PO (09:01)
[2022-04-26] MEDS: FLUTICASONE/SALMETEROL 45-21 MCG INHALER 1 PUFF 2 PUFF INHALATION (09:13)
--- NOTE | 2022-04-26 10:12 | PCRCNOTE ---
Home O2 eval done, pt will not need o2 at rest or with activity. She will wear O2 nocturnally at 2L. This is already setup and in her room at [facility]. No additional O2 needed at this time.
--- NOTE | 2022-04-26 10:36 | PM.DS ---
DS: Admitting Diagnosis Discharge Date 04/26/22 Admitting Diagnosis COPD Exacerbation DS: Discharge Diagnosis Discharge Diagnosis (1) Asthma with COPD with exacerbation: Code(s): J44.1 - Chronic obstructive pulmonary disease with (acute) exacerbation; J45.901 - Unspecified asthma with (acute) exacerbation Status: Acute Assessment and Plan: Patient with history of asthma-COPD overlap syndrome presented with increased wheezing and sputum production, consistent with COPD exacerbation Improved with prednisone. Will continue PO prednisone 40 mg daily to complete total of 5 days PO azithromycin for total of 5 days continue inhalers Sputum culture with growth of normal oropharyngeal ashley (2) Chronic respiratory failure with hypoxia, on home oxygen therapy: Code(s): J96.11 - Chronic respiratory failure with hypoxia; Z99.81 - Dependence on supplemental oxygen Status: Acute Assessment and Plan: patient on 2 L supplemental oxygen at night home O2 eval completed 04/26 with no need for supplemental O2 with rest or with exertion continue supplemental nocturnal O2 (3) Dysuria: Code(s): R30.0 - Dysuria Status: Acute Assessment and Plan: Resolved. UA without concerns for infection Symptoms resolved, no need for treatment. 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 blood sugars elevated above target secondary to steroids managed during admission with Accu-Cheks, sliding scale insulin, hypoglycemic protocol continue home glipizide and Januvia instructed to monitor blood sugars closely at home while completing steroids (5) Hypertension: Code(s): I10 - Essential (primary) hypertension Status: Acute Assessment and Plan: blood pressures reviewed and were stable. continue home carvedilol and hydralazine (6) Chronic kidney disease, stage 3: Code(s): N18.30 - Chronic kidney disease, stage 3 unspecified Status: Acute Assessment and Plan: renal function was consistent with baseline DS: Summary Hospital Course Hospital Course: Date of admission: 04/23/2022 Date of discharge: 04/26/2022 Arabella Pike is 76-year-old female with a history of COPD, chronic respiratory failure on 2 L supplemental O2, CKD, CHF, CAD, hypertension, type 2 diabetes mellitus who presented to the emergency department on 04/23/2022 with complaints of increased shortness of breath and cough over the past week. On presentation to the ED, oxygen saturations were stable at 95% on 2 L supplemental oxygen, additional vital signs stable, laboratory workup unremarkable, COVID PCR negative, and CXR showed mild atelectasis in the lower lung zones. She was admitted to the hospitalist service for further evaluation and management. Please see above for further details. Patient symptomatic improvement following steroids and antibiotics. She will continue a prednisone course as an outpatient as well as azithromycin to complete 5 days. Home oxygen evaluation was completed and patient had no supplemental oxygen requirement had rest or with activity. She will continue to use nocturnal oxygen at 2 L at her assisted living facility. She was feeling much improved and was eager for discharge. Given overall improvement, she was determined to no longer require inpatient care and was discharged in hemodynamically stable condition on 04/26/2022. Discussed with the patient worrisome signs and symptoms for which to return and she was educated on her medications. She will follow-up with her primary care provider in 1-2 weeks for monitoring. Status at Discharge Functional status at discharge: independent ambulation Overall status at discharge: patient is progressing back to baseline Time
[2022-04-26 11:31] LABS: Glucose Point of Care 162 mg/dl (65-105)
[2022-04-26 12:22] LABS: EDCOVIDSCREEN Negative (Negative)
== END 2022-04-26 14:15 | DRG 191 ==
LOC: ANHED 11:36 → ANH3MEDSUR 13:09
PROVIDERS: Nurse Practitioner; Physician Assistant; Admitting Provider Chiropractor; Emergency Provider Emergency Medicine; PCP Nurse Practitioner Family; Visit Provider Family Medicine
DX: J44.1 Chronic obstructive pulmonary disease with (acute) exacerbation (principal); I13.0 Hypertensive heart and chronic kidney disease with heart failure and stage 1 through stage 4 chronic kidney disease, or unspecified chronic kidney disease; J45.901 Unspecified asthma with (acute) exacerbation; J96.11 Chronic respiratory failure with hypoxia; I25.10 Atherosclerotic heart disease of native coronary artery without angina pectoris; N18.30 Chronic kidney disease, stage 3 unspecified; I50.9 Heart failure, unspecified; E11.22 Type 2 diabetes mellitus with diabetic chronic kidney disease; E78.5 Hyperlipidemia, unspecified; I25.2 Old myocardial infarction; K44.9 Diaphragmatic hernia without obstruction or gangrene; K25.9 Gastric ulcer, unspecified as acute or chronic, without hemorrhage or perforation; M19.90 Unspecified osteoarthritis, unspecified site; R30.0 Dysuria; F32.A Depression, unspecified; F41.9 Anxiety disorder, unspecified; Z20.822 Contact with and (suspected) exposure to COVID-19; Z86.73 Personal history of transient ischemic attack (TIA), and cerebral infarction without residual deficits; Z95.5 Presence of coronary angioplasty implant and graft; Z79.4 Long term (current) use of insulin; Z79.82 Long term (current) use of aspirin; Z90.710 Acquired absence of both cervix and uterus
CPT/HCPCS: 36415; 36600; 71045; 80048; 80053; 81001; 82375; 82805; 82948; 83036; 83050; 83735; 83880; 84439; 84443; 84480; 84484; 85025; 85027; 85610; 85730; 87070; 87205; 87426; 93005; 94618; 94640; 96361; 96374; 97161; 97165; 99285; A9270; C9803; G0378; J1815; J2930; J7040; J7050; J7512; U0003; U0005

== ENCOUNTER 2022-08-16 09:59 | Inpatient (IN) | payer MEDICARE, MEDICAID, SELFPAY ==
[2022-08-16] VITALS (11 sets, daily range): BP systolic 114–172; BP diastolic 65–97; PULSE 76–110; RESP 14–25; TEMP 35.9–36.4; O2SAT 93–99; BMI 32.8
--- NOTE | ~2022-08-16 | XR_ITS ---
Clinical Indication: Dyspnea PA and lateral views of the chest: Comparison: 04/23/2022 and 11/05/2020 Findings: The lungs are clear, without evidence of focal consolidation or pleural effusion. Probable COPD. Cardiomediastinal silhouette is within normal limits. Stable compression fractures in the thora cic and lumbar spine. Impression: Clear lungs. Suspected COPD. Stable compression fractures, as noted above. Reviewed, dictated and finalized at location M. RINARY VIRUS SERUM INSPECTOR Impression: Clear lungs. Suspected COPD. Stable compression fractures, as noted above.
--- NOTE | 2022-08-16 10:12 | ECG_ITS ---
Measurements Intervals [place] Rate: 81 P: 49 [place]: 191 QRS: 45 QRSD: 70 T: 77 QT: 359 QTc: 418 Interpretive Statements SINUS RHYTHM BASELINE ARTIFACT- I, II, AVR, AVL, AVF, V4-V6 NORMAL ECG NO PREVIOUS ECG AVAILABLE FOR COMPARISON Electronically Signed On 08-16-2022 13:05:00 VOCATIONAL TRAINING INSTRUCTOR by Sd Conn D.O.
--- NOTE | 2022-08-16 11:12 | ED.SOB ---
HPI - SOB/Dyspnea General Chief Complaint: Shortness of Breath/Dyspnea Stated Complaint: SOB Time Seen by Provider: 08/16/22 10:55 Source: patient and EMS Mode of arrival: EMS Limitations: no limitations History of Present Illness HPI Narrative: This is a 76 year old female that presents to the ER for shortness of breath. Worsening over the last 4 days. Associated with productive cough. Reports history of COPD and asthma. She is on 2L via [place] chronically. Denies fever, chest pain or lower extremity edema. Related Data Home Medications Medication Instructions Recorded Confirmed acetaminophen 325 mg capsule 325 mg PO Q6H PRN Pain 10/14/19 04/23/22 albuterol sulfate 90 mcg/actuation 1 inhalation inhalation DAILY 10/14/19 04/23/22 aerosol inhaler alprazolam 0.5 mg tablet 1 mg PO TID PRN Anxiety 10/14/19 04/23/22 aspirin 81 mg tablet,delayed 81 mg PO DAILY 10/14/19 04/23/22 release (Adult Low Dose Aspirin) budesonide-formoterol HFA 80 2 puff inhalation Q12H 10/14/19 04/23/22 mcg-4.5 mcg/actuation aerosol inhaler (Symbicort) carvedilol 25 mg tablet (Coreg) 25 mg PO BID 10/14/19 04/23/22 donepezil 5 mg tablet 5 mg PO ONCE 10/14/19 04/23/22 furosemide 20 mg tablet 20 mg PO QAM 10/14/19 04/23/22 glucose 4 gram chewable tablet 4 gm PO Q15M PRN Hypoglycemia 10/14/19 04/23/22 (Dex4 Glucose) hydralazine 25 mg tablet 25 mg PO BID 10/14/19 04/23/22 insulin glargine 100 unit/mL (3 50 unit subcut HS 10/14/19 04/23/22 mL) subcutaneous pen (Lantus Solostar U-100 Insulin) ipratropium 0.5 mg-albuterol 3 mg 3 ml inhalation Q6H PRN Dyspnea 10/14/19 04/23/22 (2.5 mg base)/3 mL nebulization soln methocarbamol 750 mg tablet 750 mg PO TID PRN Muscle Spasm 10/14/19 04/23/22 montelukast 10 mg tablet 10 mg PO HS 10/14/19 04/23/22 multivitamin 1 tablet PO DAILY 10/14/19 04/23/22 nebulizer and compressor #1 ea 10/14/19 04/23/22 (Alo7oSpire Essence device) nitroglycerin 0.4 mg sublingual 0.4 mg sublingual Q5M PRN Chest 10/14/19 04/23/22 tablet Pain pantoprazole 40 mg tablet,delayed 40 mg PO DAILY 10/14/19 04/23/22 release paroxetine HCl 40 mg tablet 40 mg PO DAILY 10/14/19 04/23/22 sitagliptin phosphate 100 mg 100 mg PO QAM 10/14/19 04/23/22 tablet (Januvia) vitamin B complex (B 1 tablet PO DAILY 10/14/19 04/23/22 Complex-Vitamin B12 tablet) polyethylene glycol 3350 17 17 gm PO BID PRN Constipation 09/18/21 04/23/22 gram/dose oral powder (Miralax) tramadol 50 mg tablet See Rx Instructions .Route 09/18/21 04/23/22 .COMPLEX PRN Pain atorvastatin 20 mg tablet 20 mg PO HS 04/23/22 04/23/22 glipizide 10 mg tablet 10 mg PO DAILY 04/23/22 04/23/22 magnesium oxide 400 mg (241.3 mg 400 mg PO DAILY 04/23/22 04/23/22 magnesium) tablet (MagOx) ondansetron 4 mg disintegrating 4 mg PO Q8H PRN Nausea 04/23/22 04/23/22 tablet Allergies Allergy/AdvReac Type Severity Reaction Status Date / Time meperidine AdvReac Mild Diarrhea Verified 05/03/22 11:04 Review of Systems Review of Systems: CONSTITUTIONAL: Denies fever EYES: Denies redness, or discharge. ENT: Reports congestion. Denies rhinorrhea, sore throat CARDIOVASCULAR: Denies chest pain, or edema. RESPIRATORY: Reports cough and dyspnea. All systems reviewed & are unremarkable except as noted in HPI and below PMFSH Past Medical History Medical History (Updated 08/16/22 @ 15:33 by Rebecca Ryder PA-C) Anemia Anxiety Arthritis Asthma Asthma-COPD overlap syndrome Cerebrovascular accident Chronic kidney disease, stage 3 Chronic respiratory failure with hypoxia, on home oxygen therapy On 2 liters nasal cannula at nighttime. Colitis Congestive heart failure Coronary artery disease Depression Dyslipidemia Gastric ulcer Gastroesophageal reflux disease Hiatal hernia Hypertension Insulin dependent type 2 diabetes mellitus Myocardial infarction Pneumonia Surgical History Surgical History (Updated 05/03/22 @ 11:04 by Jay Cary) History of appendectomy H
[2022-08-16 11:15] LABS: Basophils Percent Auto 0.5 % (0.2-1.2); Eosinophils Absolute Auto 0.4 K/mm3 (0-0.3); Eosinophils Percent Auto 4.6 % (0-4.4); Hematocrit 39.3 % (37.0-47.0); Hemoglobin 13.1 g/dL (12.0-15.0); Immature Granulocyte Absolute 0.03 K/mm3 (0.00-0.031); Immature Granulocyte Percent A 0.4 % (0-0.5); Lymphocytes Absolute Auto 1.11 K/mm3 (0.9-3.2); Lymphocytes Percent Auto 13.4 % (18.3-44.2); Mean Corpuscular HGB Conc 33.3 g/dl (32-36); Mean Corpuscular Volume 93.1 fl (80-100); Mean Platelet Volume 10.1 fl (7.4-10.4); Monocytes Absolute Auto 0.7 K/mm3 (0.1-0.6); Monocytes Percent Auto 8.8 % (2.6-8.5); Neutrophils Percent Auto 72.3 % (45.5-73.1); Platelet Count Result 196 k/mm3 (150-375); Red Blood Count 4.22 M/mm3 (4.2-5.4); Red Cell Distribution Width 11.9 % (11.5-14.5); White Blood Count 8.3 K/mm3 (4.5-10.0)
[2022-08-16 11:28] LABS: Alanine Aminotransferase 26 U/L (6-35); Alkaline Phosphatase 101 U/L (38-126); Anion Gap 6 mmol/L (8-16); Aspartate Amino Transferase 28 U/L (14-36); Bilirubin,Total 0.4 mg/dL (0.2-1.3); Blood Urea Nitrogen 17 mg/dL (7-17); Calcium 8.6 mg/dL (8.4-10.2); Carbon Dioxide 32 mmol/L (22-30); Chloride 97 mmol/L (98-107); Estimated CRCL calculation 37 ml/min; Estimated Glomerular Filt Rate 44; Glucose 167 mg/dL (65-110); Sodium 135 mmol/L (137-145)
[2022-08-16 11:32] LABS: Alveolar/Arterial O2 Gradient 61.4 mmHg; Base Excess ABG 4.4 mEq/l (+/-2.0); Carboxyhemoglobin 0.5 % THb (0-2.0); Fractional Inspired Oxygen 28 %; HCO3 ABG 30.5 mEq/l (22.0-26.0); Methemoglobin ABG 0.2 %THb (0-1.5); Oxygen Content ABG 17.9 %vol (16.0-22.0); Oxygen Saturation ABG 95.1 % (95.0-100.0); Oxyhemoglobin 93.6 % THb (90.0-100.0); PCO2 ABG 51.8 mmHg (35.0-45.0); PO2 ABG 77.1 mmHg (80.0-100.0); PO2 FiO2 Ratio Arterial Blood 2.75 %; Reduced Hemoglobin 5.7 %THb (0-5.0); Total Hemoglobin 13.6 g/dL (12.0-18.0); pH ABG 7.388 (7.350-7.450)
[2022-08-16 11:33] LABS: Device NASAL CANNULA; Modified Allen's Test Pass; Site Drawn LEFT RADIAL
[2022-08-16 11:52] LABS: Magnesium 1.8 mg/dL (1.6-2.3)
[2022-08-16] MEDS: methylPREDNISolone SOD SUCC 125 MG VIAL IV PUSH (11:54)
[2022-08-16 12:01] LABS: NT Pro B Type Natriuretic Pept 148 pg/mL (5-100)
[2022-08-16 12:04] LABS: Influenza A QL RT-PCR Negative (Negative); Influenza B QL RT-PCR Negative (Negative); SARS-CoV-2 RNA PCR Negative
[2022-08-16] MEDS: ALBUTEROL SULFATE NEB 2.5 MG/3 ML INH 15 MG INHALATION (12:25)
[2022-08-16] MEDS: IPRATROPIUM BR 0.02% INH SOLN 0.5 MG/2.5 ML VIAL 1.5 MG INHALATION (12:26)
--- NOTE | 2022-08-16 15:30 | PM.IMHP ---
H&P: HPI History of Present Illness Date/Time: 08/16/22 15:30 Chief Complaint: Shortness of breath. Narrative: This is a 76-year-old female with asthma/ COPD, chronic respiratory failure on 2 liters nasal cannula, hypertension, hyperlipidemia, insulin-dependent diabetes, and other comorbidities who presented to the emergency department via EMS from [facility] for evaluation of shortness of breath. She has not been feeling well since with chills, body aches, runny nose, cough occasionally productive of yellowish colored phlegm, mild chest tightness, and progressive dyspnea on lesser and lesser exertion with significant wheezing. ?Everyone at [facility] is sick? though the patient has tested negative for COVID and flu several times, including today. Despite using her nebulizers 3 to 4 times a day she continues to wheeze and her shortness of breath has not improved much. She denies fever, sore throat, exertional chest pain, pleuritic pain, syncope, near syncope, nausea, vomiting, diarrhea, orthopnea, paroxysmal nocturnal dyspnea, and lower extremity edema. In route to the ED she was given a nebulizer treatment and she had continuous hour long treatment done in the ED. Despite that she continues to sound very tight and she is being admitted in this setting for further treatment. Review of Systems Review of Systems: Twelve systems were reviewed and are negative except for as per HPI. [facility] Past Medical History Medical History Anemia Anxiety Arthritis Asthma Asthma-COPD overlap syndrome Cerebrovascular accident Chronic kidney disease, stage 3 Chronic respiratory failure with hypoxia, on home oxygen therapy Colitis Congestive heart failure Coronary artery disease Depression Dyslipidemia Gastric ulcer Gastroesophageal reflux disease Hiatal hernia Hypertension Insulin dependent type 2 diabetes mellitus Myocardial infarction Pneumonia Surgical History Surgical History History of appendectomy History of bladder suspension procedure History of cardiac catheterization History of colonoscopy with polypectomy History of coronary artery stent placement History of dilation and curettage History of hysterectomy History of sinus surgery History of tubal ligation Family History Family History Mother Family history of diabetes mellitus in first degree relative Family history of primary malignant neoplasm of liver Family history of heart disease in male family member before age 55 Family history of hearing loss Family history of liver disease Diabetes mellitus Cerebrovascular accident Family history of pancreatic cancer Hypertension Father Family history of emphysema Sibling Diabetes mellitus Other Depression Family history of alcoholism Family history of allergic disorder Family history of arthritis Family history of cardiovascular disease Family history of coronary artery disease Family history of malignant neoplasm Family history of mental disorder Family history of osteoporosis Social History Social History (Updated 08/16/22 @ 21:03 by Madonna Yadav PA-C) Social History: Healthcare power of tax attorney: Alistair Martínez. Code status: Full code. Smoking status: Never smoker Second hand tobacco smoke exposure: Yes Alcohol intake: never Alcohol use details: History of alcohol abuse, none since 2014. Substance use: never Lack of Transportation: No Lack of Food: Never True Current Housing: I Have Housing Concerned About Future Housing: No Difficulty Paying Gas/Electric Bills: No Difficulty Paying for Meds: No Currently Unemployed: No Education: High School Diploma/GED Difficulty w/ Childcare or Family Care: No Additional living arrangements comments: Assisted living at
[2022-08-16 21:08] LABS: Glucose Point of Care 393 mg/dl (65-105)
[2022-08-16] MEDS: ALBUTEROL SULFATE NEB 2.5 MG/3 ML INH 5 MG INHALATION (21:45)
[2022-08-16] MEDS: methylPREDNISolone SOD SUCC 125 MG VIAL 40 MG IV PUSH (21:45)
[2022-08-16] MEDS: hydrALAZINE HCL 25 MG TABLET PO (21:45)
[2022-08-16] MEDS: IPRATROPIUM BR 0.02% INH SOLN 0.5 MG/2.5 ML VIAL INHALATION (21:46)
[2022-08-16] MEDS: INSULIN GLARGINE (*BKC) 100 UNITS/ML 50 UNITS SUB-Q (21:47)
[2022-08-16] MEDS: ACETAMINOPHEN 325 MG TABLET 650 MG PO (21:51)
[2022-08-16 22:14] LABS: Alveolar/Arterial O2 Gradient 107.6 mmHg; Base Excess ABG 2.5 mEq/l (+/-2.0); Carboxyhemoglobin 0.6 % THb (0-2.0); Device NASAL CANNULA; Fractional Inspired Oxygen 32 %; HCO3 ABG 28.6 mEq/l (22.0-26.0); Methemoglobin ABG 0.4 %THb (0-1.5); Modified Allen's Test Pass; Oxygen Content ABG 20.4 %vol (16.0-22.0); Oxygen Saturation ABG 91.5 % (95.0-100.0); Oxyhemoglobin 90.7 % THb (90.0-100.0); PCO2 ABG 49.3 mmHg (35.0-45.0); PO2 ABG 62.9 mmHg (80.0-100.0); PO2 FiO2 Ratio Arterial Blood 1.97 %; Reduced Hemoglobin 8.3 %THb (0-5.0); Site Drawn LEFT RADIAL; pH ABG 7.381 (7.350-7.450)
[2022-08-17] VITALS (16 sets, daily range): BP systolic 151–169; BP diastolic 70–84; PULSE 84–107; RESP 18–22; TEMP 35.8–36.4; O2SAT 91–96
[2022-08-17] MEDS: ALBUTEROL SULFATE NEB 2.5 MG/3 ML INH 5 MG INHALATION ×4 (02:30→21:36)
[2022-08-17] MEDS: IPRATROPIUM BR 0.02% INH SOLN 0.5 MG/2.5 ML VIAL INHALATION ×4 (02:30→21:37)
[2022-08-17] MEDS: methylPREDNISolone SOD SUCC 125 MG VIAL 40 MG IV PUSH ×3 (05:32→21:19)
[2022-08-17 07:22] LABS: Hematocrit 35.8 % (37.0-47.0); Hemoglobin 12.4 g/dL (12.0-15.0); Mean Corpuscular HGB Conc 34.6 g/dl (32-36); Mean Corpuscular Volume 92.3 fl (80-100); Mean Platelet Volume 10.4 fl (7.4-10.4); Platelet Count Result 191 k/mm3 (150-375); Red Blood Count 3.88 M/mm3 (4.2-5.4); Red Cell Distribution Width 11.9 % (11.5-14.5); White Blood Count 12.3 K/mm3 (4.5-10.0)
[2022-08-17 07:34] LABS: Anion Gap 3 mmol/L (8-16); Blood Urea Nitrogen 23 mg/dL (7-17); Calcium 8.9 mg/dL (8.4-10.2); Carbon Dioxide 30 mmol/L (22-30); Chloride 98 mmol/L (98-107); Estimated CRCL calculation 44 ml/min; Estimated Glomerular Filt Rate 54; Glucose 303 mg/dL (65-110); Potassium 4.1 mmol/L (3.4-5.0); Sodium 131 mmol/L (137-145)
[2022-08-17 07:58] LABS: Glucose Point of Care 264 mg/dl (65-105)
--- NOTE | 2022-08-17 09:00 | PM.IMPN ---
Progress Note: A&P Assessment and Plan (1) Asthma with COPD with exacerbation: Code(s): J44.1 - Chronic obstructive pulmonary disease with (acute) exacerbation; J45.901 - Unspecified asthma with (acute) exacerbation Status: Acute Assessment and Plan: The patient presented to the ED for evaluation of multiple symptoms including aches, chills, productive cough, chest tightness, shortness of breath, and wheezing. Negative for COVID and flu Received nebulizer treatment in the ED and continued to have diffuse wheezing Continuing nebulizers and Solu-Medrol Continue Singulair Patient started on azithromycin EKG revealed tachycardia. Most likely secondary to nebulizer treatments. Chest x-ray her are clear, suggestive of COPD as well as stable compression fractures With blood cell count mildly elevated at 12.3 Patient on 3 L of oxygen saturated at 96%. Patient regularly on 2 L at home. Sputum culture ordered Wean oxygen as necessary (2) Chronic respiratory failure with hypoxia, on home oxygen therapy: Code(s): J96.11 - Chronic respiratory failure with hypoxia; Z99.81 - Dependence on supplemental oxygen Status: Acute Assessment and Plan: The patient presented to the ED for evaluation of multiple symptoms including aches, chills, productive cough, chest tightness, shortness of breath, and wheezing. 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 HS Hypoglycemic protocols initiated (4) Chronic kidney disease, stage 3: Code(s): N18.30 - Chronic kidney disease, stage 3 unspecified Status: Acute Assessment and Plan: Patient's creatinine stable continue to monitor (5) Hypertension: Code(s): I10 - Essential (primary) hypertension Status: Acute Assessment and Plan: Chronic Continue hydralazine and Coreg Subjective Date/time seen: 08/17/22 09:00 Interval history: This is a 76-year-old female with asthma/ COPD, chronic respiratory failure on 2 liters nasal cannula, hypertension, hyperlipidemia, insulin-dependent diabetes, and other comorbidities who presented to the emergency department via EMS from [facility] for evaluation of shortness of breath. When discussing with patient today she states that she is feeling slightly better than when she did when she arrived to the hospital. Patient still having shortness of breath. Patient does state that she has wheezing frequently and then that is semi normal for her. I patient states that she does use her home inhalers although they do not help her much. States that her nebulizers are more useful. Patient denies chest pain, nausea, vomiting, abdominal pain, diarrhea, lower extremity swelling, dizziness and fever. Continue patient on current therapy. Review of Systems Review of Systems: All systems reviewed & are unremarkable except as noted in HPI and below Exam Narrative: GENERAL: Comfortable, no acute distress HENMT: moist mucous membranes EYES: EOM intact b/l NECK: no lymphadenopathy RESPIRATORY: Mild diffuse expiratory wheezes, majority of wheezing in upper airways. CARDIO: RRR GI: soft, nontender, bowel sounds present SKIN: no rashes EXTREMITIES: no edema, redness or tenderness Objective Data Vital Signs Vital Signs: Vital Signs - 24 hr 08/16/22 10:12 08/16/22 12:30 08/16/22 13:41 Temperature 97.6 F Pulse Rate 76 77 82 Respiratory Rate 16 20 25 H Blood Pressure 114/65 Pulse Oximetry 99 Oxygen Delivery Nasal Cannula Oxygen Flow Rate 2 08/16/22 16:30 08/16/22 16:31
[2022-08-17] MEDS: INSULIN ASPART (*BKC) 100 UNITS/ML SUB-Q ×3 (09:06→17:22)
[2022-08-17] MEDS: AZITHROMYCIN 250 MG TABLET 500 MG PO (09:08)
[2022-08-17] MEDS: ENOXAPARIN 40 MG/0.4 ML SYRINGE SUB-Q (09:08)
[2022-08-17] MEDS: DONEPEZIL HCL 5 MG TABLET PO (09:08)
[2022-08-17] MEDS: MULTIVITAMINS THERAPEUTIC TAB (*BKC) 1 TABLET PO (09:08)
[2022-08-17] MEDS: PANTOPRAZOLE 40 MG TABLET PO (09:09)
[2022-08-17] MEDS: hydrALAZINE HCL 25 MG TABLET PO ×2 (09:09→17:24)
[2022-08-17] MEDS: ASPIRIN 81 MG ENTERIC TABLET PO (09:09)
[2022-08-17] MEDS: glipiZIDE 5 MG TABLET 10 MG PO (09:09)
[2022-08-17] MEDS: carvediloL 25 MG TABLET PO ×2 (09:09→21:13)
[2022-08-17] MEDS: FUROSEMIDE 20 MG TABLET PO (09:09)
[2022-08-17] MEDS: MAGNESIUM OXIDE 400 MG TABLET PO (09:09)
[2022-08-17] MEDS: VITAMIN B COMPLEX CAPSULE 1 CAP PO (09:10)
[2022-08-17] MEDS: PARoxetine 20 MG TABLET 40 MG PO (09:10)
[2022-08-17] MEDS: FLUTICASONE/SALMETEROL 45-21 MCG INHALER 1 PUFF 2 PUFF INHALATION ×2 (09:42→21:37)
[2022-08-17 11:48] LABS: Glucose Point of Care 230 mg/dl (65-105)
[2022-08-17] MEDS: ALPRAZolam (*CRX) 0.5 MG TABLET 1 MG PO ×2 (11:49→21:17)
[2022-08-17 16:58] LABS: Glucose Point of Care 266 mg/dl (65-105)
[2022-08-17] MEDS: ARTIFICIAL TEARS OPHTH SOLN 15 ML BOTTLE 1 DROP EACH EYE (17:24)
[2022-08-17] MEDS: ATORVASTATIN 20 MG TABLET PO (21:13)
[2022-08-17] MEDS: MONTELUKAST SODIUM 10 MG TABLET PO (21:13)
[2022-08-17] MEDS: INSULIN GLARGINE (*BKC) 100 UNITS/ML 50 UNITS SUB-Q (21:21)
[2022-08-17 22:56] LABS: Glucose Point of Care 318 mg/dl (65-105)
[2022-08-18] VITALS (12 sets, daily range): BP systolic 143–154; BP diastolic 72–79; PULSE 73–88; RESP 16–20; TEMP 35.1–36.1; O2SAT 92–95
[2022-08-18] MEDS: methylPREDNISolone SOD SUCC 125 MG VIAL 40 MG IV PUSH ×3 (06:00→21:12)
[2022-08-18 07:30] LABS: Basophils Percent Auto 0.1 % (0.2-1.2); Hematocrit 38.4 % (37.0-47.0); Hemoglobin 13.1 g/dL (12.0-15.0); Immature Granulocyte Absolute 0.13 K/mm3 (0.00-0.031); Immature Granulocyte Percent A 0.7 % (0-0.5); Lymphocytes Absolute Auto 1.17 K/mm3 (0.9-3.2); Lymphocytes Percent Auto 6.5 % (18.3-44.2); Mean Corpuscular HGB Conc 34.1 g/dl (32-36); Mean Corpuscular Hemoglobin 31.3 pg (26-34); Mean Corpuscular Volume 91.6 fl (80-100); Mean Platelet Volume 10.4 fl (7.4-10.4); Monocytes Absolute Auto 0.5 K/mm3 (0.1-0.6); Monocytes Percent Auto 2.9 % (2.6-8.5); Neutrophils Absolute Auto 16.1 K/mm3 (1.3-6.7); Neutrophils Percent Auto 89.8 % (45.5-73.1); Platelet Count Result 210 k/mm3 (150-375); Red Blood Count 4.19 M/mm3 (4.2-5.4); Red Cell Distribution Width 11.9 % (11.5-14.5); White Blood Count 17.9 K/mm3 (4.5-10.0)
[2022-08-18 07:59] LABS: Alanine Aminotransferase 25 U/L (6-35); Albumin Level 3.8 g/dL (3.5-5.1); Alkaline Phosphatase 94 U/L (38-126); Anion Gap 6 mmol/L (8-16); Aspartate Amino Transferase 27 U/L (14-36); Bilirubin,Total 0.4 mg/dL (0.2-1.3); Blood Urea Nitrogen 30 mg/dL (7-17); Carbon Dioxide 32 mmol/L (22-30); Chloride 99 mmol/L (98-107); Estimated CRCL calculation 44 ml/min; Estimated Glomerular Filt Rate 54; Glucose 271 mg/dL (65-110); Potassium 4.4 mmol/L (3.4-5.0); Sodium 137 mmol/L (137-145)
[2022-08-18 08:00] LABS: Glucose Point of Care 263 mg/dl (65-105)
[2022-08-18] MEDS: ALBUTEROL SULFATE NEB 2.5 MG/3 ML INH 5 MG INHALATION ×4 (09:35→22:00)
[2022-08-18] MEDS: FLUTICASONE/SALMETEROL 45-21 MCG INHALER 1 PUFF 2 PUFF INHALATION ×2 (09:36→21:59)
[2022-08-18] MEDS: IPRATROPIUM BR 0.02% INH SOLN 0.5 MG/2.5 ML VIAL INHALATION ×4 (09:36→22:00)
[2022-08-18] MEDS: INSULIN ASPART (*BKC) 100 UNITS/ML SUB-Q ×3 (09:46→17:10)
[2022-08-18] MEDS: ALPRAZolam (*CRX) 0.5 MG TABLET 1 MG PO ×3 (09:59→21:06)
[2022-08-18] MEDS: VITAMIN B COMPLEX CAPSULE 1 CAP PO (10:00)
[2022-08-18] MEDS: PARoxetine 20 MG TABLET 40 MG PO (10:00)
[2022-08-18] MEDS: hydrALAZINE HCL 25 MG TABLET PO ×2 (10:00→17:13)
[2022-08-18] MEDS: PANTOPRAZOLE 40 MG TABLET PO (10:00)
[2022-08-18] MEDS: glipiZIDE 5 MG TABLET 10 MG PO (10:00)
[2022-08-18] MEDS: MAGNESIUM OXIDE 400 MG TABLET PO (10:00)
[2022-08-18] MEDS: ASPIRIN 81 MG ENTERIC TABLET PO (10:00)
[2022-08-18] MEDS: AZITHROMYCIN 250 MG TABLET 500 MG PO (10:00)
[2022-08-18] MEDS: ENOXAPARIN 40 MG/0.4 ML SYRINGE SUB-Q (10:01)
[2022-08-18] MEDS: carvediloL 25 MG TABLET PO ×2 (10:01→20:58)
[2022-08-18] MEDS: MULTIVITAMINS THERAPEUTIC TAB (*BKC) 1 TABLET PO (10:01)
[2022-08-18] MEDS: DONEPEZIL HCL 5 MG TABLET PO (10:01)
[2022-08-18] MEDS: FUROSEMIDE 20 MG TABLET PO (10:01)
[2022-08-18 11:51] LABS: Glucose Point of Care 303 mg/dl (65-105)
--- NOTE | 2022-08-18 14:15 | P.PNIM_ITS ---
Progress Note: A&P Assessment and Plan (1) Asthma with COPD with exacerbation: Code(s): J44.1 - Chronic obstructive pulmonary disease with (acute) exacerbation; J45.901 - Unspecified asthma with (acute) exacerbation Status: Acute Assessment and Plan: The patient presented to the ED for evaluation of multiple symptoms including aches, chills, productive cough, chest tightness, shortness of breath, and wheezing. * Negative for COVID and flu * Received nebulizer treatment in the ED and continued to have diffuse wheezing * Continuing nebulizers and Solu-Medrol * Continue Singulair * Patient started on azithromycin * EKG revealed tachycardia. Most likely secondary to nebulizer treatments. * Chest x-ray her are clear, suggestive of COPD as well as stable compression fractures * Patient on 3 L of oxygen saturated at 93%. Patient regularly on 2 L at home. * Sputum culture ordered * For congestion patient was given Mucinex * Flonase and [place] nasal spray added for sinus congestion and nare dryness * Patient given Eucerin for skin irritation. * WBC today 17.9. Suspected of pneumonia verses sinusitis or both. Adding Augmentin per up-to-date guidelines. * Wean oxygen as necessary (2) Chronic respiratory failure with hypoxia, on home oxygen therapy: Code(s): J96.11 - Chronic respiratory failure with hypoxia; Z99.81 - Dependence on supplemental oxygen Status: Acute Assessment and Plan: The patient presented to the ED for evaluation of multiple symptoms including aches, chills, productive cough, chest tightness, shortness of breath, and wheezing. 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 HS * Hypoglycemic protocols initiated (4) Chronic kidney disease, stage 3: Code(s): N18.30 - Chronic kidney disease, stage 3 unspecified Status: Acute Assessment and Plan: Patient's creatinine stable continue to monitor (5) Hypertension: Code(s): I10 - Essential (primary) hypertension Status: Acute Assessment and Plan: Chronic * Continue hydralazine and Coreg Subjective Date/time seen: 08/18/22 14:15 Interval history: 08/18/22 This is a 76-year-old female with asthma/ COPD, chronic respiratory failure on 2 liters nasal cannula, hypertension, hyperlipidemia, insulin-dependent diabetes, and other comorbidities who presented to the emergency department via EMS from [facility] for evaluation of shortness of breath. Patient feeling mildly better today but is still having some shortness of breath. Patient states that she feels very congested both sinus and chest. Patient states that her nasal cannula is making her nose dry. Patient also complains of skin irritation that she gets on and off and is chronic for her. Patient denies chest pain, nausea, vomiting, diarrhea, dizziness, headache and fever. Review of Systems Review of Systems: All systems reviewed & are unremarkable except as noted in HPI and below Exam Narrative: GENERAL: Comfortable, no acute distress HENMT: moist mucous membranes EYES: EOM intact b/l NECK
--- NOTE | 2022-08-18 14:15 | PM.IMPN ---
Progress Note: A&P Assessment and Plan (1) Asthma with COPD with exacerbation: Code(s): J44.1 - Chronic obstructive pulmonary disease with (acute) exacerbation; J45.901 - Unspecified asthma with (acute) exacerbation Status: Acute Assessment and Plan: The patient presented to the ED for evaluation of multiple symptoms including aches, chills, productive cough, chest tightness, shortness of breath, and wheezing. Negative for COVID and flu Received nebulizer treatment in the ED and continued to have diffuse wheezing Continuing nebulizers and Solu-Medrol Continue Singulair Patient started on azithromycin EKG revealed tachycardia. Most likely secondary to nebulizer treatments. Chest x-ray her are clear, suggestive of COPD as well as stable compression fractures Patient on 3 L of oxygen saturated at 93%. Patient regularly on 2 L at home. Sputum culture ordered For congestion patient was given Mucinex Flonase and [place] nasal spray added for sinus congestion and nare dryness Patient given Eucerin for skin irritation. WBC today 17.9. Suspected of pneumonia verses sinusitis or both. Adding Augmentin per up-to-date guidelines. Wean oxygen as necessary (2) Chronic respiratory failure with hypoxia, on home oxygen therapy: Code(s): J96.11 - Chronic respiratory failure with hypoxia; Z99.81 - Dependence on supplemental oxygen Status: Acute Assessment and Plan: The patient presented to the ED for evaluation of multiple symptoms including aches, chills, productive cough, chest tightness, shortness of breath, and wheezing. 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 HS Hypoglycemic protocols initiated (4) Chronic kidney disease, stage 3: Code(s): N18.30 - Chronic kidney disease, stage 3 unspecified Status: Acute Assessment and Plan: Patient's creatinine stable continue to monitor (5) Hypertension: Code(s): I10 - Essential (primary) hypertension Status: Acute Assessment and Plan: Chronic Continue hydralazine and Coreg Subjective Date/time seen: 08/18/22 14:15 Interval history: 08/18/22 This is a 76-year-old female with asthma/ COPD, chronic respiratory failure on 2 liters nasal cannula, hypertension, hyperlipidemia, insulin-dependent diabetes, and other comorbidities who presented to the emergency department via EMS from [facility] for evaluation of shortness of breath. Patient feeling mildly better today but is still having some shortness of breath. Patient states that she feels very congested both sinus and chest. Patient states that her nasal cannula is making her nose dry. Patient also complains of skin irritation that she gets on and off and is chronic for her. Patient denies chest pain, nausea, vomiting, diarrhea, dizziness, headache and fever. Review of Systems Review of Systems: All systems reviewed & are unremarkable except as noted in HPI and below Exam Narrative: GENERAL: Comfortable, no acute distress HENMT: moist mucous membranes EYES: EOM intact b/l NECK: no lymphadenopathy RESPIRATORY: Mild diffuse expiratory wheezes CARDIO: RRR GI: soft, nontender, bowel sounds present SKIN: no rashes EXTREMITIES: no edema, redness or tenderness Objective Data Vital Signs Vital Signs: Vital Signs - 24 hr 08/17/22 14:45 08/17/22 21:13 08/17/22 21:32 Temperature 97.6 F Pulse Rate 92 84 94 Respiratory Rate 20 22 H Blood Pressure 151/70 H Pulse Oximetry 91 Oxygen Delivery Oxygen Flow Rate 08/17/22 21:38 01
[2022-08-18] MEDS: ARTIFICIAL TEARS OPHTH SOLN 15 ML BOTTLE 1 DROP EACH EYE (15:40)
[2022-08-18 17:05] LABS: Glucose Point of Care 314 mg/dl (65-105)
[2022-08-18] MEDS: guaiFENesin 12 HR 600 MG TABCR PO (20:57)
[2022-08-18] MEDS: AMOXICILLIN/CLAVULANATE K 875-125 MG TAB 1 TABLET PO (20:57)
[2022-08-18] MEDS: FLUTICASONE PROPIONATE 0.05% NA SPR 16 GM BTL (*BKC) 1 SPRAY NASAL (20:57)
[2022-08-18] MEDS: MONTELUKAST SODIUM 10 MG TABLET PO (20:58)
[2022-08-18] MEDS: ATORVASTATIN 20 MG TABLET PO (20:59)
[2022-08-18] MEDS: INSULIN GLARGINE (*BKC) 100 UNITS/ML 50 UNITS SUB-Q (21:00)
[2022-08-18] MEDS: INSULIN ASPART (*BKC) 100 UNITS/ML 8 UNITS SUB-Q (22:22)
[2022-08-18 22:48] LABS: Glucose Point of Care 411 mg/dl (65-105)
[2022-08-19] VITALS (11 sets, daily range): BP systolic 133–158; BP diastolic 68–73; PULSE 68–82; RESP 16–28; TEMP 35.5–36.6; O2SAT 93–95
[2022-08-19 00:01] LABS: Glucose Point of Care 315 mg/dl (65-105)
[2022-08-19] MEDS: methylPREDNISolone SOD SUCC 125 MG VIAL 40 MG IV PUSH ×3 (05:57→21:42)
[2022-08-19 06:57] LABS: Hematocrit 37.8 % (37.0-47.0); Hemoglobin 12.9 g/dL (12.0-15.0); Mean Corpuscular HGB Conc 34.1 g/dl (32-36); Mean Corpuscular Hemoglobin 31.5 pg (26-34); Mean Corpuscular Volume 92.2 fl (80-100); Mean Platelet Volume 10.6 fl (7.4-10.4); Platelet Count Result 200 k/mm3 (150-375); Red Cell Distribution Width 11.9 % (11.5-14.5); White Blood Count 16.1 K/mm3 (4.5-10.0)
[2022-08-19 07:06] LABS: Alanine Aminotransferase 27 U/L (6-35); Albumin Level 3.7 g/dL (3.5-5.1); Alkaline Phosphatase 98 U/L (38-126); Anion Gap 3 mmol/L (8-16); Aspartate Amino Transferase 22 U/L (14-36); Bilirubin,Total 0.3 mg/dL (0.2-1.3); Blood Urea Nitrogen 34 mg/dL (7-17); Calcium 8.9 mg/dL (8.4-10.2); Carbon Dioxide 33 mmol/L (22-30); Chloride 99 mmol/L (98-107); Estimated CRCL calculation 40 ml/min; Estimated Glomerular Filt Rate 48; Glucose 222 mg/dL (65-110); Potassium 3.9 mmol/L (3.4-5.0); Sodium 135 mmol/L (137-145)
[2022-08-19 08:19] LABS: Glucose Point of Care 206 mg/dl (65-105)
[2022-08-19] MEDS: AMOXICILLIN/CLAVULANATE K 875-125 MG TAB 1 TABLET PO (08:37)
[2022-08-19] MEDS: VITAMIN B COMPLEX CAPSULE 1 CAP PO (08:37)
[2022-08-19] MEDS: INSULIN ASPART (*BKC) 100 UNITS/ML SUB-Q ×3 (08:37→17:56)
[2022-08-19] MEDS: hydrALAZINE HCL 25 MG TABLET PO ×2 (08:37→17:57)
[2022-08-19] MEDS: PARoxetine 20 MG TABLET 40 MG PO (08:37)
[2022-08-19] MEDS: FUROSEMIDE 20 MG TABLET PO (08:38)
[2022-08-19] MEDS: DONEPEZIL HCL 5 MG TABLET PO (08:38)
[2022-08-19] MEDS: ENOXAPARIN 40 MG/0.4 ML SYRINGE SUB-Q (08:38)
[2022-08-19] MEDS: glipiZIDE 5 MG TABLET 10 MG PO (08:38)
[2022-08-19] MEDS: PANTOPRAZOLE 40 MG TABLET PO (08:38)
[2022-08-19] MEDS: guaiFENesin 12 HR 600 MG TABCR PO ×2 (08:39→21:06)
[2022-08-19] MEDS: carvediloL 25 MG TABLET PO ×2 (08:39→21:05)
[2022-08-19] MEDS: ARTIFICIAL TEARS OPHTH SOLN 15 ML BOTTLE 1 DROP EACH EYE ×2 (08:39→21:42)
[2022-08-19] MEDS: MULTIVITAMINS THERAPEUTIC TAB (*BKC) 1 TABLET PO (08:39)
[2022-08-19] MEDS: ASPIRIN 81 MG ENTERIC TABLET PO (08:39)
[2022-08-19] MEDS: methocarbamoL 750 MG TABLET PO (08:39)
[2022-08-19] MEDS: AZITHROMYCIN 250 MG TABLET 500 MG PO (08:40)
[2022-08-19] MEDS: FLUTICASONE PROPIONATE 0.05% NA SPR 16 GM BTL (*BKC) 1 SPRAY NASAL ×2 (08:40→21:07)
[2022-08-19] MEDS: MAGNESIUM OXIDE 400 MG TABLET PO (08:40)
--- NOTE | 2022-08-19 08:42 | P.PNIM_ITS ---
Progress Note: A&P Assessment and Plan (1) Asthma with COPD with exacerbation: Code(s): J44.1 - Chronic obstructive pulmonary disease with (acute) exacerbation; J45.901 - Unspecified asthma with (acute) exacerbation Status: Acute Assessment and Plan: The patient presented to the ED for evaluation of multiple symptoms including aches, chills, productive cough, chest tightness, shortness of breath, and wheezing. * Negative for COVID and flu * Received nebulizer treatment in the ED and continued to have diffuse wheezing * Continuing nebulizers and Solu-Medrol * Continue Singulair * Patient started on azithromycin * EKG revealed tachycardia. Most likely secondary to nebulizer treatments. * Chest x-ray her are clear, suggestive of COPD as well as stable compression fractures * Patient on 3 L of oxygen saturated at 93%. Patient regularly on 2 L at home. * Sputum culture ordered * Wean oxygen as necessary * 08/18/22 WBC 17.9. Suspected of pneumonia verses sinusitis. Adding Augmentin per up-to-date guidelines. * For congestion patient was given Mucinex. * Flonase and [place] nasal spray added for sinus congestion and nare dryness * Patient given Eucerin for skin irritation. * 08/19/22 WBC count trending down and 16.1 today. * D/C Augmentin because wbc likely due to steroid use. * Patient complaining of increased mucus production without because able to cough anything up, added CPT, spirometry and Pulmozyme. (2) Chronic respiratory failure with hypoxia, on home oxygen therapy: Code(s): J96.11 - Chronic respiratory failure with hypoxia; Z99.81 - Dependence on supplemental oxygen Status: Acute Assessment and Plan: The patient presented to the ED for evaluation of multiple symptoms including aches, chills, productive cough, chest tightness, shortness of breath, and wheezing. * Oxygen stable on 3 L of oxygen * See above for additional information (3) Insulin dependent type 2 diabetes mellitus: Code(s): E11.9 - Type 2 diabetes mellitus without complications; Z79.4 - senior care (current) use of insulin Status: Acute Assessment and Plan: Chronic * Insulin glargine 50 units daily * Sliding scale 2-5 units * Bedside glucose management a.c. HS * Hypoglycemic protocols initiated (4) Chronic kidney disease, stage 3: Code(s): N18.30 - Chronic kidney disease, stage 3 unspecified Status: Acute Assessment and Plan: Patient's creatinine stable continue to monitor (5) Hypertension: Code(s): I10 - Essential (primary) hypertension Status: Acute Assessment and Plan: Chronic * Continue hydralazine and Coreg Subjective Date/time seen: 08/19/22 08:42 Interval history: 08/19/22 This is a 76-year-old female with asthma/ COPD, chronic respiratory failure on 2 liters nasal cannula, hypertension, hyperlipidemia, insulin-dependent diabetes, and other comorbidities who presented to the emergency department via EMS from [facility] for evaluation of shortness of breath. Patient shortness of breath has improved although she is still wheezing. Patient denies chest pain, nausea, vomiting fever headache and dizziness. Patient states Eucerin cream is helping the itchiness on arms. Review of Systems Review of Systems: All systems reviewed & are unremarkable except as noted in HPI and below Exam Narrative: GENERAL: Comfortable, no acute distress HENMT: moist mucous membranes
--- NOTE | 2022-08-19 08:42 | PM.IMPN ---
Progress Note: A&P Assessment and Plan (1) Asthma with COPD with exacerbation: Code(s): J44.1 - Chronic obstructive pulmonary disease with (acute) exacerbation; J45.901 - Unspecified asthma with (acute) exacerbation Status: Acute Assessment and Plan: The patient presented to the ED for evaluation of multiple symptoms including aches, chills, productive cough, chest tightness, shortness of breath, and wheezing. Negative for COVID and flu Received nebulizer treatment in the ED and continued to have diffuse wheezing Continuing nebulizers and Solu-Medrol Continue Singulair Patient started on azithromycin EKG revealed tachycardia. Most likely secondary to nebulizer treatments. Chest x-ray her are clear, suggestive of COPD as well as stable compression fractures Patient on 3 L of oxygen saturated at 93%. Patient regularly on 2 L at home. Sputum culture ordered Wean oxygen as necessary 08/18/22 WBC 17.9. Suspected of pneumonia verses sinusitis. Adding Augmentin per up-to-date guidelines. For congestion patient was given Mucinex. Flonase and [place] nasal spray added for sinus congestion and nare dryness Patient given Eucerin for skin irritation. 08/19/22 WBC count trending down and 16.1 today. D/C Augmentin because wbc likely due to steroid use. Patient complaining of increased mucus production without because able to cough anything up, added CPT, spirometry and Pulmozyme. (2) Chronic respiratory failure with hypoxia, on home oxygen therapy: Code(s): J96.11 - Chronic respiratory failure with hypoxia; Z99.81 - Dependence on supplemental oxygen Status: Acute Assessment and Plan: The patient presented to the ED for evaluation of multiple symptoms including aches, chills, productive cough, chest tightness, shortness of breath, and wheezing. Oxygen stable on 3 L of oxygen See above for additional information (3) Insulin dependent type 2 diabetes mellitus: Code(s): E11.9 - Type 2 diabetes mellitus without complications; Z79.4 - [facility] (current[facility] use of insulin Status: Acute Assessment and Plan: Chronic Insulin glargine 50 units daily Sliding scale 2-5 units Bedside glucose management a.c. HS Hypoglycemic protocols initiated (4) Chronic kidney disease, stage 3: Code(s): N18.30 - Chronic kidney disease, stage 3 unspecified Status: Acute Assessment and Plan: Patient's creatinine stable continue to monitor (5) Hypertension: Code(s): I10 - Essential (primary) hypertension Status: Acute Assessment and Plan: Chronic Continue hydralazine and Coreg Subjective Date/time seen: 08/19/22 08:42 Interval history: 08/19/22 This is a 76-year-old female with asthma/ COPD, chronic respiratory failure on 2 liters nasal cannula, hypertension, hyperlipidemia, insulin-dependent diabetes, and other comorbidities who presented to the emergency department via EMS from [facility] for evaluation of shortness of breath. Patient shortness of breath has improved although she is still wheezing. Patient denies chest pain, nausea, vomiting fever headache and dizziness. Patient states Eucerin cream is helping the itchiness on arms. Review of Systems Review of Systems: All systems reviewed & are unremarkable except as noted in HPI and below Exam Narrative: GENERAL: Comfortable, no acute distress HENMT: moist mucous membranes EYES: EOM intact b/l, erythema around eyelashes NECK: no lymphadenopathy RESPIRATORY: Mild expiratory wheezes CARDIO: RRR GI: soft, nontender, bowel sounds present SKIN: Dry skin over arms and chest EXTREMITIES: no edema, redness or tenderness Objective Data Vital Signs Vital Signs: Vital Signs - 24 hr 08/18/22 09:36 08/18/22 09:36 08/18/22 10:01 Temperature Pulse Rate 83 83 88 Respiratory Rate 16 16 Blood Pressure Pulse Oximetry 93 Oxygen Delivery
[2022-08-19] MEDS: ALPRAZolam (*CRX) 0.5 MG TABLET 1 MG PO ×2 (08:52→21:06)
[2022-08-19] MEDS: DORNASE ALFA INH SOLN 1 MG/ML 2.5 ML AMP 2.5 MG INHALATION (08:53)
[2022-08-19] MEDS: ALBUTEROL SULFATE NEB 2.5 MG/3 ML INH 5 MG INHALATION ×3 (08:53→23:25)
[2022-08-19] MEDS: IPRATROPIUM BR 0.02% INH SOLN 0.5 MG/2.5 ML VIAL INHALATION ×3 (08:54→23:25)
[2022-08-19] MEDS: FLUTICASONE/SALMETEROL 45-21 MCG INHALER 1 PUFF 2 PUFF INHALATION ×2 (08:54→23:25)
[2022-08-19 12:08] LABS: Glucose Point of Care 301 mg/dl (65-105)
[2022-08-19] MEDS: EUCERIN CREAM 120 GM JAR 1 APPLIC TOPICAL (12:24)
[2022-08-19 17:09] LABS: Glucose Point of Care 368 mg/dl (65-105)
[2022-08-19] MEDS: MONTELUKAST SODIUM 10 MG TABLET PO (21:05)
[2022-08-19] MEDS: ATORVASTATIN 20 MG TABLET PO (21:05)
[2022-08-19] MEDS: INSULIN GLARGINE (*BKC) 100 UNITS/ML 50 UNITS SUB-Q (21:07)
[2022-08-19 21:31] LABS: Glucose Point of Care 315 mg/dl (65-105)
[2022-08-20] VITALS (10 sets, daily range): BP systolic 124–154; BP diastolic 58–76; PULSE 68–85; RESP 16–24; TEMP 36.3–36.6; O2SAT 93–96
[2022-08-20] MEDS: ALBUTEROL SULFATE NEB 2.5 MG/3 ML INH 5 MG INHALATION ×3 (02:28→13:01)
[2022-08-20] MEDS: IPRATROPIUM BR 0.02% INH SOLN 0.5 MG/2.5 ML VIAL INHALATION ×3 (02:29→13:01)
[2022-08-20] MEDS: methylPREDNISolone SOD SUCC 125 MG VIAL 40 MG IV PUSH ×2 (05:16→13:02)
[2022-08-20 06:36] LABS: Hematocrit 38.9 % (37.0-47.0); Hemoglobin 12.9 g/dL (12.0-15.0); Mean Corpuscular HGB Conc 33.2 g/dl (32-36); Mean Corpuscular Hemoglobin 31.5 pg (26-34); Mean Corpuscular Volume 95.1 fl (80-100); Mean Platelet Volume 10.5 fl (7.4-10.4); Platelet Count Result 191 k/mm3 (150-375); Red Blood Count 4.09 M/mm3 (4.2-5.4); Red Cell Distribution Width 11.7 % (11.5-14.5); White Blood Count 12.1 K/mm3 (4.5-10.0)
[2022-08-20 06:41] LABS: Alanine Aminotransferase 34 U/L (6-35); Albumin Level 3.5 g/dL (3.5-5.1); Alkaline Phosphatase 89 U/L (38-126); Anion Gap 8 mmol/L (8-16); Aspartate Amino Transferase 26 U/L (14-36); Bilirubin,Total 0.3 mg/dL (0.2-1.3); Blood Urea Nitrogen 36 mg/dL (7-17); Calcium 8.8 mg/dL (8.4-10.2); Carbon Dioxide 30 mmol/L (22-30); Chloride 98 mmol/L (98-107); Estimated CRCL calculation 40 ml/min; Estimated Glomerular Filt Rate 48; Glucose 205 mg/dL (65-110); Potassium 3.8 mmol/L (3.4-5.0); Sodium 136 mmol/L (137-145)
[2022-08-20] MEDS: FLUTICASONE/SALMETEROL 45-21 MCG INHALER 1 PUFF 2 PUFF INHALATION (08:35)
[2022-08-20 08:48] LABS: Glucose Point of Care 178 mg/dl (65-105)
[2022-08-20] MEDS: DORNASE ALFA INH SOLN 1 MG/ML 2.5 ML AMP 2.5 MG INHALATION (08:48)
[2022-08-20] MEDS: ENOXAPARIN 40 MG/0.4 ML SYRINGE SUB-Q (09:44)
[2022-08-20] MEDS: FUROSEMIDE 20 MG TABLET PO (09:45)
[2022-08-20] MEDS: MULTIVITAMINS THERAPEUTIC TAB (*BKC) 1 TABLET PO (09:45)
[2022-08-20] MEDS: MAGNESIUM OXIDE 400 MG TABLET PO (09:45)
[2022-08-20] MEDS: VITAMIN B COMPLEX CAPSULE 1 CAP PO (09:45)
[2022-08-20] MEDS: hydrALAZINE HCL 25 MG TABLET PO ×2 (09:45→17:09)
[2022-08-20] MEDS: guaiFENesin 12 HR 600 MG TABCR PO ×2 (09:45→22:19)
[2022-08-20] MEDS: PANTOPRAZOLE 40 MG TABLET PO (09:45)
[2022-08-20] MEDS: ASPIRIN 81 MG ENTERIC TABLET PO (09:45)
[2022-08-20] MEDS: carvediloL 25 MG TABLET PO ×2 (09:45→22:18)
[2022-08-20] MEDS: PARoxetine 20 MG TABLET 40 MG PO (09:46)
[2022-08-20] MEDS: glipiZIDE 5 MG TABLET 10 MG PO (09:46)
[2022-08-20] MEDS: FLUTICASONE PROPIONATE 0.05% NA SPR 16 GM BTL (*BKC) 1 SPRAY NASAL ×2 (09:46→22:17)
[2022-08-20] MEDS: AZITHROMYCIN 250 MG TABLET 500 MG PO (09:46)
[2022-08-20] MEDS: DONEPEZIL HCL 5 MG TABLET PO (09:46)
[2022-08-20] MEDS: ALPRAZolam (*CRX) 0.5 MG TABLET 1 MG PO ×3 (09:50→22:24)
[2022-08-20 11:51] LABS: Glucose Point of Care 270 mg/dl (65-105)
[2022-08-20] MEDS: INSULIN ASPART (*BKC) 100 UNITS/ML SUB-Q ×2 (12:57→17:08)
--- NOTE | 2022-08-20 13:49 | P.PNIM_ITS ---
Progress Note: A&P Assessment and Plan (1) Asthma with COPD with exacerbation: Code(s): J44.1 - Chronic obstructive pulmonary disease with (acute) exacerbation; J45.901 - Unspecified asthma with (acute) exacerbation Status: Acute Assessment and Plan: The patient presented to the ED for evaluation of multiple symptoms including aches, chills, productive cough, chest tightness, shortness of breath, and wheezing. * Negative for COVID and flu * Received nebulizer treatment in the ED and continued to have diffuse wheezing * Continuing nebulizers and Solu-Medrol * Continue Singulair * Patient started on azithromycin * EKG revealed tachycardia. Most likely secondary to nebulizer treatments. * Chest x-ray her are clear, suggestive of COPD as well as stable compression fractures * Patient regularly on 2 L at home. * Oxygen weaned to room air during the day and 2 L at night. * Sputum culture preliminary growth of normal oropharyngeal ashley * Wean oxygen as necessary 08/18/22 * WBC 17.9. Suspected of pneumonia verses sinusitis. Adding Augmentin per up-to-date guidelines. * For congestion patient was given Mucinex. * Flonase and [place] nasal spray added for sinus congestion and nare dryness * Patient given Eucerin for skin irritation. 08/19/22 * WBC count trending down and 16.1 today. * D/C Augmentin because wbc likely due to steroid use. * Patient complaining of increased mucus production without because able to co ugh anything up, added CPT, spirometry and Pulmozyme. 08/20/22 * WBC 12.1. Continue current therapy. (2) Chronic respiratory failure with hypoxia, on home oxygen therapy: Code(s): J96.11 - Chronic respiratory failure with hypoxia; Z99.81 - Dependence on supplemental oxygen Status: Acute Assessment and Plan: The patient presented to the ED for evaluation of multiple symptoms including aches, chills, productive cough, chest tightness, shortness of breath, and wheezing. * Patient weaned to room air during the day and 2 L at night. * See above for additional information (3) Insulin dependent type 2 diabetes mellitus: Code(s): E11.9 - Type 2 diabetes mellitus without complications; Z79.4 - skilled nursing (current) use of insulin Status: Acute Assessment and Plan: Chronic * Insulin glargine 50 units daily * Sliding scale 2-5 units * Bedside glucose management a.c. HS * Hypoglycemic protocols initiated (4) Chronic kidney disease, stage 3: Code(s): N18.30 - Chronic kidney disease, stage 3 unspecified Status: Acute Assessment and Plan: Patient's creatinine stable continue to monitor (5) Hypertension: Code(s): I10 - Essential (primary) hypertension Status: Acute Assessment and Plan: Chronic * Continue hydralazine and Coreg Subjective Date/time seen: 08/20/22 13:49 Interval history: 08/20/22 This is a 76-year-old female with asthma/ COPD, chronic respiratory failure on 2 liters nasal cannula, hypertension, hyperlipidemia, insulin-dependent diabetes, and other comorbidities who presented to the emergency department via EMS from [facility] for evaluation of shortness of breath. Patient shortness of breath has improved although she is still wheezing. Patient denies chest pain, nausea, vomiting fever headache and dizziness. Patient states Eucerin cream is helping the itchiness on arms. Exam Narrative: GENERAL: Comfortable, no acute distress HENMT: moist mucous membra
--- NOTE | 2022-08-20 13:49 | PM.IMPN ---
Progress Note: A&P Assessment and Plan (1) Asthma with COPD with exacerbation: Code(s): J44.1 - Chronic obstructive pulmonary disease with (acute) exacerbation; J45.901 - Unspecified asthma with (acute) exacerbation Status: Acute Assessment and Plan: The patient presented to the ED for evaluation of multiple symptoms including aches, chills, productive cough, chest tightness, shortness of breath, and wheezing. Negative for COVID and flu Received nebulizer treatment in the ED and continued to have diffuse wheezing Continuing nebulizers and Solu-Medrol Continue Singulair Patient started on azithromycin EKG revealed tachycardia. Most likely secondary to nebulizer treatments. Chest x-ray her are clear, suggestive of COPD as well as stable compression fractures Patient regularly on 2 L at home. Oxygen weaned to room air during the day and 2 L at night. Sputum culture preliminary growth of normal oropharyngeal ashley Wean oxygen as necessary 08/18/22 WBC 17.9. Suspected of pneumonia verses sinusitis. Adding Augmentin per up-to-date guidelines. For congestion patient was given Mucinex. Flonase and [place] nasal spray added for sinus congestion and nare dryness Patient given Eucerin for skin irritation. 08/19/22 WBC count trending down and 16.1 today. D/C Augmentin because wbc likely due to steroid use. Patient complaining of increased mucus production without because able to cough anything up, added CPT, spirometry and Pulmozyme. 08/20/22 WBC 12.1. Continue current therapy. (2) Chronic respiratory failure with hypoxia, on home oxygen therapy: Code(s): J96.11 - Chronic respiratory failure with hypoxia; Z99.81 - Dependence on supplemental oxygen Status: Acute Assessment and Plan: The patient presented to the ED for evaluation of multiple symptoms including aches, chills, productive cough, chest tightness, shortness of breath, and wheezing. Patient weaned to room air during the day and 2 L at night. See above for additional information (3) Insulin dependent type 2 diabetes mellitus: Code(s): E11.9 - Type 2 diabetes mellitus without complications; Z79.4 - [employer] (current) use of insulin Status: Acute Assessment and Plan: Chronic Insulin glargine 50 units daily Sliding scale 2-5 units Bedside glucose management a.c. HS Hypoglycemic protocols initiated (4) Chronic kidney disease, stage 3: Code(s): N18.30 - Chronic kidney disease, stage 3 unspecified Status: Acute Assessment and Plan: Patient's creatinine stable continue to monitor (5) Hypertension: Code(s): I10 - Essential (primary) hypertension Status: Acute Assessment and Plan: Chronic Continue hydralazine and Coreg Subjective Date/time seen: 08/20/22 13:49 Interval history: 08/20/22 This is a 76-year-old female with asthma/ COPD, chronic respiratory failure on 2 liters nasal cannula, hypertension, hyperlipidemia, insulin-dependent diabetes, and other comorbidities who presented to the emergency department via EMS from [facility] for evaluation of shortness of breath. Patient shortness of breath has improved although she is still wheezing. Patient denies chest pain, nausea, vomiting fever headache and dizziness. Patient states Eucerin cream is helping the itchiness on arms. Exam Narrative: GENERAL: Comfortable, no acute distress HENMT: moist mucous membranes EYES: EOM intact b/l, erythema around eyelashes NECK: no lymphadenopathy RESPIRATORY: Mild expiratory wheezes CARDIO: Distant heart sounds but has RRR GI: soft, nontender, bowel sounds present SKIN: Dry skin over arms and chest EXTREMITIES: no edema, redness or tenderness Objective Data Vital Signs Vital Signs: Vital Signs - 24 hr 08/19/22 15:00 08/19/22 18:00 08/19/22 21:05 Temperature 97.8 F Pulse Rate 73 78 Respiratory Rate 28 H 18
[2022-08-20 16:53] LABS: Glucose Point of Care 283 mg/dl (65-105)
[2022-08-20] MEDS: INSULIN GLARGINE (*BKC) 100 UNITS/ML 50 UNITS SUB-Q (21:12)
[2022-08-20 21:18] LABS: Glucose Point of Care 306 mg/dl (65-105)
[2022-08-20] MEDS: MONTELUKAST SODIUM 10 MG TABLET PO (22:19)
[2022-08-20] MEDS: ATORVASTATIN 20 MG TABLET PO (22:19)
[2022-08-20] MEDS: methylPREDNISolone SOD SUCC 40 MG VIAL IV PUSH (22:25)
--- NOTE | 2022-08-20 23:12 | PCRCNOTE ---
Window of time for administration has passed. See next scheduled administration.
[2022-08-21] VITALS (13 sets, daily range): BP systolic 129–169; BP diastolic 55–80; PULSE 66–84; RESP 18–22; TEMP 35.9–36.4; O2SAT 93–96
[2022-08-21] MEDS: ALBUTEROL SULFATE NEB 2.5 MG/3 ML INH 5 MG INHALATION ×4 (03:13→21:23)
[2022-08-21] MEDS: IPRATROPIUM BR 0.02% INH SOLN 0.5 MG/2.5 ML VIAL INHALATION ×4 (03:14→21:23)
[2022-08-21] MEDS: methylPREDNISolone SOD SUCC 40 MG VIAL IV PUSH ×3 (06:11→21:23)
[2022-08-21 06:19] LABS: Mean Corpuscular HGB Conc 33.3 g/dl (32-36); Mean Corpuscular Hemoglobin 31.6 pg (26-34); Mean Corpuscular Volume 94.7 fl (80-100); Mean Platelet Volume 10.6 fl (7.4-10.4); Platelet Count Result 175 k/mm3 (150-375); Red Blood Count 4.12 M/mm3 (4.2-5.4); Red Cell Distribution Width 11.6 % (11.5-14.5); White Blood Count 11.5 K/mm3 (4.5-10.0)
[2022-08-21 06:29] LABS: Alanine Aminotransferase 34 U/L (6-35); Albumin Level 3.5 g/dL (3.5-5.1); Alkaline Phosphatase 93 U/L (38-126); Anion Gap 4 mmol/L (8-16); Aspartate Amino Transferase 22 U/L (14-36); Bilirubin,Total 0.3 mg/dL (0.2-1.3); Blood Urea Nitrogen 36 mg/dL (7-17); Calcium 8.8 mg/dL (8.4-10.2); Carbon Dioxide 32 mmol/L (22-30); Chloride 95 mmol/L (98-107); Estimated CRCL calculation 40 ml/min; Estimated Glomerular Filt Rate 48; Glucose 191 mg/dL (65-110); Potassium 3.5 mmol/L (3.4-5.0); Sodium 131 mmol/L (137-145)
[2022-08-21] MEDS: DORNASE ALFA INH SOLN 1 MG/ML 2.5 ML AMP 2.5 MG INHALATION ×2 (07:56→21:23)
[2022-08-21] MEDS: FLUTICASONE/SALMETEROL 45-21 MCG INHALER 1 PUFF 2 PUFF INHALATION ×2 (07:56→21:23)
[2022-08-21 08:06] LABS: Glucose Point of Care 179 mg/dl (65-105)
[2022-08-21] MEDS: ACETAMINOPHEN 325 MG TABLET 650 MG PO (09:25)
[2022-08-21] MEDS: ALPRAZolam (*CRX) 0.5 MG TABLET 1 MG PO ×3 (09:25→20:10)
[2022-08-21] MEDS: PARoxetine 20 MG TABLET 40 MG PO (09:26)
[2022-08-21] MEDS: MULTIVITAMINS THERAPEUTIC TAB (*BKC) 1 TABLET PO (09:27)
[2022-08-21] MEDS: DONEPEZIL HCL 5 MG TABLET PO (09:27)
[2022-08-21] MEDS: AZITHROMYCIN 250 MG TABLET 500 MG PO (09:27)
[2022-08-21] MEDS: ENOXAPARIN 40 MG/0.4 ML SYRINGE SUB-Q (09:27)
[2022-08-21] MEDS: MAGNESIUM OXIDE 400 MG TABLET PO (09:27)
[2022-08-21] MEDS: hydrALAZINE HCL 25 MG TABLET PO ×2 (09:27→17:46)
[2022-08-21] MEDS: EUCERIN CREAM 120 GM JAR 1 APPLIC TOPICAL (09:27)
[2022-08-21] MEDS: FLUTICASONE PROPIONATE 0.05% NA SPR 16 GM BTL (*BKC) 1 SPRAY NASAL ×2 (09:28→20:09)
[2022-08-21] MEDS: PANTOPRAZOLE 40 MG TABLET PO (09:28)
[2022-08-21] MEDS: glipiZIDE 5 MG TABLET 10 MG PO (09:28)
[2022-08-21] MEDS: carvediloL 25 MG TABLET PO ×2 (09:28→20:09)
[2022-08-21] MEDS: FUROSEMIDE 20 MG TABLET PO (09:28)
[2022-08-21] MEDS: guaiFENesin 12 HR 600 MG TABCR PO ×2 (09:28→20:08)
[2022-08-21] MEDS: ASPIRIN 81 MG ENTERIC TABLET PO (09:28)
[2022-08-21] MEDS: VITAMIN B COMPLEX CAPSULE 1 CAP PO (09:28)
[2022-08-21] MEDS: ARTIFICIAL TEARS OPHTH SOLN 15 ML BOTTLE 1 DROP EACH EYE (09:29)
[2022-08-21 11:53] LABS: Glucose Point of Care 395 mg/dl (65-105)
[2022-08-21] MEDS: INSULIN ASPART (*BKC) 100 UNITS/ML SUB-Q ×2 (12:15→17:46)
--- NOTE | 2022-08-21 16:00 | P.PNIM_ITS ---
Progress Note: A&P Assessment and Plan (1) Asthma with COPD with exacerbation: Code(s): J44.1 - Chronic obstructive pulmonary disease with (acute) exacerbation; J45.901 - Unspecified asthma with (acute) exacerbation Status: Acute Assessment and Plan: The patient presented to the ED for evaluation of multiple symptoms including aches, chills, productive cough, chest tightness, shortness of breath, and wheezing. * Negative for COVID and flu * Received nebulizer treatment in the ED and continued to have diffuse wheezing * Continuing nebulizers and Solu-Medrol * Continue Singulair * Patient started on azithromycin * EKG revealed tachycardia. Most likely secondary to nebulizer treatments. * Chest x-ray her are clear, suggestive of COPD as well as stable compression fractures * Patient regularly on 2 L at home. * Oxygen weaned to room air during the day and 2 L at night. * Sputum culture preliminary growth of normal oropharyngeal ashley * Wean oxygen as necessary 08/18/22 * WBC 17.9. Suspected of pneumonia verses sinusitis. Adding Augmentin per up-to-date guidelines. * For congestion patient was given Mucinex. * Flonase and [place] nasal spray added for sinus congestion and nare dryness * Patient given Eucerin for skin irritation. 08/19/22 * WBC count trending down and 16.1 today. * D/C Augmentin because wbc likely due to steroid use. * Patient complaining of increased mucus production without because able to co ugh anything up, added CPT, spirometry and Pulmozyme. 08/20/22 * WBC 12.1. Continue current therapy. 08/21/2022 * Patient states that she is feeling better. * Patient continues to have diffuse mild wheezing * Patient on day 5 of steroid therapy. (2) Chronic respiratory failure with hypoxia, on home oxygen therapy: Code(s): J96.11 - Chronic respiratory failure with hypoxia; Z99.81 - Dependence on supplemental oxygen Status: Acute Assessment and Plan: The patient presented to the ED for evaluation of multiple symptoms including aches, chills, productive cough, chest tightness, shortness of breath, and wheezing. * Patient weaned to room air during the day and 2 L at night. * See above for additional information (3) Insulin dependent type 2 diabetes mellitus: Code(s): E11.9 - Type 2 diabetes mellitus without complications; Z79.4 - [facility] (current) use of insulin Status: Acute Assessment and Plan: Chronic * Insulin glargine 50 units daily * Sliding scale 2-5 units * Bedside glucose management a.c. HS * Hypoglycemic protocols initiated (4) Chronic kidney disease, stage 3: Code(s): N18.30 - Chronic kidney disease, stage 3 unspecified Status: Acute Assessment and Plan: Patient's creatinine stable continue to monitor (5) Hypertension: Code(s): I10 - Essential (primary) hypertension Status: Acute Assessment and Plan: Chronic * Continue hydralazine and Coreg Subjective Date/time seen: 08/21/22 16:00 Interval history: 08/21/22 This is a 76-year-old female with asthma/ COPD, chronic respiratory failure on 2 liters nasal cannula, hypertension, hyperlipidemia, insulin-dependent diabetes, and other comorbidities who presented to the emergency department via EMS from [facility] for evaluation of shortness of breath. Patient shortness of breath has improved although she is still wheezing. Patient denies chest pain, nausea, vomiting fever headache and dizziness. Patient states
--- NOTE | 2022-08-21 16:00 | PM.IMPN ---
Progress Note: A&P Assessment and Plan (1) Asthma with COPD with exacerbation: Code(s): J44.1 - Chronic obstructive pulmonary disease with (acute) exacerbation; J45.901 - Unspecified asthma with (acute) exacerbation Status: Acute Assessment and Plan: The patient presented to the ED for evaluation of multiple symptoms including aches, chills, productive cough, chest tightness, shortness of breath, and wheezing. Negative for COVID and flu Received nebulizer treatment in the ED and continued to have diffuse wheezing Continuing nebulizers and Solu-Medrol Continue Singulair Patient started on azithromycin EKG revealed tachycardia. Most likely secondary to nebulizer treatments. Chest x-ray her are clear, suggestive of COPD as well as stable compression fractures Patient regularly on 2 L at home. Oxygen weaned to room air during the day and 2 L at night. Sputum culture preliminary growth of normal oropharyngeal ashley Wean oxygen as necessary 08/18/22 WBC 17.9. Suspected of pneumonia verses sinusitis. Adding Augmentin per up-to-date guidelines. For congestion patient was given Mucinex. Flonase and [place] nasal spray added for sinus congestion and nare dryness Patient given Eucerin for skin irritation. 08/19/22 WBC count trending down and 16.1 today. D/C Augmentin because wbc likely due to steroid use. Patient complaining of increased mucus production without because able to cough anything up, added CPT, spirometry and Pulmozyme. 08/20/22 WBC 12.1. Continue current therapy. 08/21/2022 Patient states that she is feeling better. Patient continues to have diffuse mild wheezing Patient on day 5 of steroid therapy. (2) Chronic respiratory failure with hypoxia, on home oxygen therapy: Code(s): J96.11 - Chronic respiratory failure with hypoxia; Z99.81 - Dependence on supplemental oxygen Status: Acute Assessment and Plan: The patient presented to the ED for evaluation of multiple symptoms including aches, chills, productive cough, chest tightness, shortness of breath, and wheezing. Patient weaned to room air during the day and 2 L at night. See above for additional information (3) Insulin dependent type 2 diabetes mellitus: Code(s): E11.9 - Type 2 diabetes mellitus without complications; Z79.4 - [facility] (current) use of insulin Status: Acute Assessment and Plan: Chronic Insulin glargine 50 units daily Sliding scale 2-5 units Bedside glucose management a.c. HS Hypoglycemic protocols initiated (4) Chronic kidney disease, stage 3: Code(s): N18.30 - Chronic kidney disease, stage 3 unspecified Status: Acute Assessment and Plan: Patient's creatinine stable continue to monitor (5) Hypertension: Code(s): I10 - Essential (primary) hypertension Status: Acute Assessment and Plan: Chronic Continue hydralazine and Coreg Subjective Date/time seen: 08/21/22 16:00 Interval history: 08/21/22 This is a 76-year-old female with asthma/ COPD, chronic respiratory failure on 2 liters nasal cannula, hypertension, hyperlipidemia, insulin-dependent diabetes, and other comorbidities who presented to the emergency department via EMS from [facility] for evaluation of shortness of breath. Patient shortness of breath has improved although she is still wheezing. Patient denies chest pain, nausea, vomiting fever headache and dizziness. Patient states Eucerin cream is helping the itchiness on arms. Patient states that she has had some anxiety about being in the hospital and not being at home. States that she has some stressors at home regarding family. Exam Narrative: GENERAL: Comfortable, no acute distress HENMT: moist mucous membranes EYES: EOM intact b/l, erythema around eyelashes NECK: no lymphadenopathy RESPIRATORY: Mild expiratory wheezes CARDIO: Distant heart sounds but has RRR GI
[2022-08-21 16:58] LABS: Glucose Point of Care 275 mg/dl (65-105)
[2022-08-21] MEDS: ATORVASTATIN 20 MG TABLET PO (20:08)
[2022-08-21] MEDS: MONTELUKAST SODIUM 10 MG TABLET PO (20:09)
[2022-08-21] MEDS: INSULIN GLARGINE (*BKC) 100 UNITS/ML 50 UNITS SUB-Q (20:34)
--- NOTE | 2022-08-21 20:37 | PC.NURSE ---
bs [id number] reported to JIM Yadav awaiting orders
[2022-08-21] MEDS: INSULIN ASPART (*BKC) 100 UNITS/ML 10 UNITS SUB-Q (21:04)
[2022-08-21 22:42] LABS: Glucose Point of Care 444 mg/dl (65-105)
[2022-08-21 22:45] LABS: Glucose Point of Care 334 mg/dl (65-105)
[2022-08-22] VITALS (16 sets, daily range): BP systolic 163–174; BP diastolic 72–83; PULSE 68–79; RESP 14–20; TEMP 35.5–36.4; O2SAT 94–98
[2022-08-22] MEDS: ALBUTEROL SULFATE NEB 2.5 MG/3 ML INH 5 MG INHALATION ×2 (02:57→10:30)
[2022-08-22] MEDS: IPRATROPIUM BR 0.02% INH SOLN 0.5 MG/2.5 ML VIAL INHALATION ×5 (02:57→23:47)
[2022-08-22] MEDS: methylPREDNISolone SOD SUCC 40 MG VIAL IV PUSH ×3 (05:04→20:21)
[2022-08-22 06:30] LABS: Basophils Percent Auto 0.3 % (0.2-1.2); Hematocrit 39.2 % (37.0-47.0); Hemoglobin 13.3 g/dL (12.0-15.0); Immature Granulocyte Absolute 0.47 K/mm3 (0.00-0.031); Immature Granulocyte Percent A 3.3 % (0-0.5); Lymphocytes Absolute Auto 1.45 K/mm3 (0.9-3.2); Mean Corpuscular HGB Conc 33.9 g/dl (32-36); Mean Corpuscular Hemoglobin 31.7 pg (26-34); Mean Corpuscular Volume 93.6 fl (80-100); Mean Platelet Volume 10.7 fl (7.4-10.4); Monocytes Absolute Auto 0.6 K/mm3 (0.1-0.6); Monocytes Percent Auto 4.2 % (2.6-8.5); Neutrophils Absolute Auto 11.9 K/mm3 (1.3-6.7); Neutrophils Percent Auto 82.2 % (45.5-73.1); Nucleated Red Blood Cells Perc 0.1 % (0.0-0.2); Platelet Count Result 196 k/mm3 (150-375); Red Blood Count 4.19 M/mm3 (4.2-5.4); Red Cell Distribution Width 11.6 % (11.5-14.5); White Blood Count 14.4 K/mm3 (4.5-10.0)
[2022-08-22 06:40] LABS: Alanine Aminotransferase 31 U/L (6-35); Albumin Level 3.3 g/dL (3.5-5.1); Alkaline Phosphatase 87 U/L (38-126); Anion Gap 4 mmol/L (8-16); Aspartate Amino Transferase 18 U/L (14-36); Bilirubin,Total 0.3 mg/dL (0.2-1.3); Blood Urea Nitrogen 36 mg/dL (7-17); Calcium 8.7 mg/dL (8.4-10.2); Carbon Dioxide 34 mmol/L (22-30); Chloride 94 mmol/L (98-107); Estimated CRCL calculation 45 ml/min; Estimated Glomerular Filt Rate 54; Glucose 145 mg/dL (65-110); Potassium 3.1 mmol/L (3.4-5.0); Sodium 132 mmol/L (137-145)
[2022-08-22 07:50] LABS: Glucose Point of Care 132 mg/dl (65-105)
[2022-08-22] MEDS: carvediloL 25 MG TABLET PO ×2 (08:40→20:20)
[2022-08-22] MEDS: FUROSEMIDE 20 MG TABLET PO (08:40)
[2022-08-22] MEDS: DONEPEZIL HCL 5 MG TABLET PO (08:40)
[2022-08-22] MEDS: ASPIRIN 81 MG ENTERIC TABLET PO (08:40)
[2022-08-22] MEDS: PANTOPRAZOLE 40 MG TABLET PO (08:40)
[2022-08-22] MEDS: hydrALAZINE HCL 25 MG TABLET PO ×3 (08:41→20:20)
[2022-08-22] MEDS: MAGNESIUM OXIDE 400 MG TABLET PO (08:42)
[2022-08-22] MEDS: MULTIVITAMINS THERAPEUTIC TAB (*BKC) 1 TABLET PO (08:42)
[2022-08-22] MEDS: ENOXAPARIN 40 MG/0.4 ML SYRINGE SUB-Q (08:42)
[2022-08-22] MEDS: glipiZIDE 5 MG TABLET 10 MG PO (08:42)
[2022-08-22] MEDS: SALINE 0.65% NAS SOLN 44 ML BTL 1 SPRAY NASAL (08:43)
[2022-08-22] MEDS: ARTIFICIAL TEARS OPHTH SOLN 15 ML BOTTLE 1 DROP EACH EYE (08:43)
[2022-08-22] MEDS: FLUTICASONE PROPIONATE 0.05% NA SPR 16 GM BTL (*BKC) 1 SPRAY NASAL ×2 (08:44→20:21)
[2022-08-22] MEDS: guaiFENesin 12 HR 600 MG TABCR PO ×2 (08:44→20:20)
[2022-08-22] MEDS: PARoxetine 20 MG TABLET 40 MG PO (08:44)
[2022-08-22] MEDS: VITAMIN B COMPLEX CAPSULE 1 CAP PO (08:44)
[2022-08-22] MEDS: ALPRAZolam (*CRX) 0.5 MG TABLET 1 MG PO ×2 (08:46→16:18)
[2022-08-22] MEDS: DORNASE ALFA INH SOLN 1 MG/ML 2.5 ML AMP 2.5 MG INHALATION ×2 (10:31→20:47)
[2022-08-22] MEDS: FLUTICASONE/SALMETEROL 45-21 MCG INHALER 1 PUFF 2 PUFF INHALATION ×2 (10:31→20:47)
[2022-08-22 10:38] LABS: Magnesium 2.4 mg/dL (1.6-2.3)
[2022-08-22 11:36] LABS: Glucose Point of Care 347 mg/dl (65-105)
[2022-08-22] MEDS: INSULIN ASPART (*BKC) 100 UNITS/ML SUB-Q ×2 (12:11→18:43)
[2022-08-22] MEDS: POTASSIUM CHLORIDE 20 MEQ PACKET (FOR LIQUID) 60 MEQ PO (12:11)
[2022-08-22] MEDS: EUCERIN CREAM 120 GM JAR 1 APPLIC TOPICAL (12:20)
--- NOTE | 2022-08-22 14:07 | P.PNIM_ITS ---
Progress Note: A&P Assessment and Plan (1) Asthma with COPD with exacerbation: Code(s): J44.1 - Chronic obstructive pulmonary disease with (acute) exacerbation; J45.901 - Unspecified asthma with (acute) exacerbation Status: Acute Assessment and Plan: The patient presented to the ED for evaluation of multiple symptoms including aches, chills, productive cough, chest tightness, shortness of breath, and wheezing. * Negative for COVID and flu * Received nebulizer treatment in the ED and continued to have diffuse wheezing * Continuing nebulizers and Solu-Medrol * Continue Singulair * Patient started on azithromycin * EKG revealed tachycardia. Most likely secondary to nebulizer treatments. * Chest x-ray her are clear, suggestive of COPD as well as stable compression fractures * Patient regularly on 2 L at home. * Oxygen weaned to room air during the day and 2 L at night. * Sputum culture preliminary growth of normal oropharyngeal ashley * Wean oxygen as necessary 08/18/22 * WBC 17.9. Suspected of pneumonia verses sinusitis. Adding Augmentin per up-to-date guidelines. * For congestion patient was given Mucinex. * Flonase and [employer] nasal spray added for sinus congestion and nare dryness * Patient given Eucerin for skin irritation. 08/19/22 * WBC count trending down and 16.1 today. * D/C Augmentin because wbc likely due to steroid use. * Patient complaining of increased mucus production without because able to co ugh anything up, added CPT, spirometry and Pulmozyme. 08/20/22 * WBC 12.1. Continue current therapy. 08/21/2022 * Patient states that she is feeling better. * Patient continues to have diffuse mild wheezing * Patient on day 5 of steroid therapy. 08/22/22 End-expiratory wheezing noted on exam. Patient off oxygen at rest. Appears anxious and may be secondary to IV solu-medrol. Will wean steroids. Increase duonebs Q4 hours scheduled. No sputum color changes and patient completed 5 days of azithromycin. Add LAMA versus LAMA/LABA at discharge. She would benefit from outpatient PFTs. (2) Chronic respiratory failure with hypoxia, on home oxygen therapy: Code(s): J96.11 - Chronic respiratory failure with hypoxia; Z99.81 - Dependence on supplemental oxygen Status: Acute Assessment and Plan: The patient presented to the ED for evaluation of multiple symptoms including aches, chills, productive cough, chest tightness, shortness of breath, and wheezing. * Patient weaned to room air during the day and 2 L at night. * management as above. (3) Insulin dependent type 2 diabetes mellitus: Code(s): E11.9 - Type 2 diabetes mellitus without complications; Z79.4 - MCFP (current) use of insulin Status: Acute Assessment and Plan: Chronic, with hyperglycemia secondary to systemic steroids * Insulin glargine 50 units daily * Sliding scale 4-8 units novolog * Bedside glucose management a.c. HS * Hypoglycemic protocols initiated * 08/22/22 fasting glucose 134. preprandial glucose 250-400 mg/dL. add novolog 7 units with meals TID plus sliding scale. Adjust as needed while weaning steroids. (4) Chronic kidney disease, stage 3: Qualifiers: Chronic kidney disease stage 3 subtype: stage 3a (GFR 45-59) Qualified Code(s): N18.31 - Chronic kidney disease, stage 3a Code(s): N18.30 - Chronic kidney disease, stage 3 unspecified Status: Chronic Assessment and Plan: Patient's creatinine stable continue to monitor (5) Hypertension: Qualifiers: Hypertension type: primary hypertension Qualified Code(s): I10 - Essential (primary)
--- NOTE | 2022-08-22 14:07 | PM.IMPN ---
Progress Note: A&P Assessment and Plan (1) Asthma with COPD with exacerbation: Code(s): J44.1 - Chronic obstructive pulmonary disease with (acute) exacerbation; J45.901 - Unspecified asthma with (acute) exacerbation Status: Acute Assessment and Plan: The patient presented to the ED for evaluation of multiple symptoms including aches, chills, productive cough, chest tightness, shortness of breath, and wheezing. Negative for COVID and flu Received nebulizer treatment in the ED and continued to have diffuse wheezing Continuing nebulizers and Solu-Medrol Continue Singulair Patient started on azithromycin EKG revealed tachycardia. Most likely secondary to nebulizer treatments. Chest x-ray her are clear, suggestive of COPD as well as stable compression fractures Patient regularly on 2 L at home. Oxygen weaned to room air during the day and 2 L at night. Sputum culture preliminary growth of normal oropharyngeal ashley Wean oxygen as necessary 08/18/22 WBC 17.9. Suspected of pneumonia verses sinusitis. Adding Augmentin per up-to-date guidelines. For congestion patient was given Mucinex. Flonase and [place] nasal spray added for sinus congestion and nare dryness Patient given Eucerin for skin irritation. 08/19/22 WBC count trending down and 16.1 today. D/C Augmentin because wbc likely due to steroid use. Patient complaining of increased mucus production without because able to cough anything up, added CPT, spirometry and Pulmozyme. 08/20/22 WBC 12.1. Continue current therapy. 08/21/2022 Patient states that she is feeling better. Patient continues to have diffuse mild wheezing Patient on day 5 of steroid therapy. 08/22/22 End-expiratory wheezing noted on exam. Patient off oxygen at rest. Appears anxious and may be secondary to IV solu-medrol. Will wean steroids. Increase duonebs Q4 hours scheduled. No sputum color changes and patient completed 5 days of azithromycin. Add LAMA versus LAMA/LABA at discharge. She would benefit from outpatient PFTs. (2) Chronic respiratory failure with hypoxia, on home oxygen therapy: Code(s): J96.11 - Chronic respiratory failure with hypoxia; Z99.81 - Dependence on supplemental oxygen Status: Acute Assessment and Plan: The patient presented to the ED for evaluation of multiple symptoms including aches, chills, productive cough, chest tightness, shortness of breath, and wheezing. Patient weaned to room air during the day and 2 L at night. management as above. 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 Hypoglycemic protocols initiated 08/22/22 fasting glucose 134. preprandial glucose 250-400 mg/dL. add novolog 7 units with meals TID plus sliding scale. Adjust as needed while weaning steroids. (4) Chronic kidney disease, stage 3: Qualifiers: Chronic kidney disease stage 3 subtype: stage 3a (GFR 45-59) Qualified Code(s): N18.31 - Chronic kidney disease, stage 3a Code(s): N18.30 - Chronic kidney disease, stage 3 unspecified Status: Chronic Assessment and Plan: Patient's creatinine stable continue to monitor (5) Hypertension: Qualifiers: Hypertension type: primary hypertension Qualified Code(s): I10 - Essential (primary) hypertension Code(s): I10 - Essential (primary) hypertension Status: Acute Assessment and Plan: Chronic Continue hydralazine and Coreg 08/22/22 BP elevated 170s/80s. Increase hydralazine 25 mg TID Plan CODE STATUS: FULL CODE Discharge disposition: return to assisted living facility in 1-2 days Time Spent With Patient Time with patient: 15 - 25
[2022-08-22] MEDS: ALBUTEROL SULFATE NEB 2.5 MG/3 ML INH INHALATION ×3 (15:22→23:47)
[2022-08-22] MEDS: ACETAMINOPHEN 325 MG TABLET 650 MG PO (16:18)
[2022-08-22 17:11] LABS: Glucose Point of Care 324 mg/dl (65-105)
[2022-08-22] MEDS: INSULIN ASPART (*BKC) 100 UNITS/ML 7 UNITS SUB-Q (18:43)
[2022-08-22] MEDS: HYDROCORTISONE 1% 30 GM CREAM 1 APPLIC TOPICAL (20:21)
[2022-08-22] MEDS: ATORVASTATIN 20 MG TABLET PO (20:21)
[2022-08-22] MEDS: MONTELUKAST SODIUM 10 MG TABLET PO (20:21)
[2022-08-22] MEDS: INSULIN GLARGINE (*BKC) 100 UNITS/ML 50 UNITS SUB-Q (21:08)
[2022-08-22 21:11] LABS: Glucose Point of Care 379 mg/dl (65-105)
[2022-08-23] VITALS (11 sets, daily range): BP systolic 163–171; BP diastolic 80–82; PULSE 73–86; RESP 16–20; TEMP 35.8–35.9; O2SAT 93–96
[2022-08-23] MEDS: ALBUTEROL SULFATE NEB 2.5 MG/3 ML INH INHALATION ×3 (04:56→14:16)
[2022-08-23] MEDS: IPRATROPIUM BR 0.02% INH SOLN 0.5 MG/2.5 ML VIAL INHALATION ×3 (04:56→14:16)
[2022-08-23 06:38] LABS: Albumin Level 3.1 g/dL (3.5-5.1); Anion Gap 3 mmol/L (8-16); Blood Urea Nitrogen 39 mg/dL (7-17); Calcium 8.7 mg/dL (8.4-10.2); Carbon Dioxide 34 mmol/L (22-30); Chloride 98 mmol/L (98-107); Estimated CRCL calculation 41 ml/min; Estimated Glomerular Filt Rate 48; Glucose 192 mg/dL (65-110); Magnesium 2.3 mg/dL (1.6-2.3); Phosphorus 3.8 mg/dL (2.5-4.5); Potassium 4.1 mmol/L (3.4-5.0); Sodium 135 mmol/L (137-145)
[2022-08-23 08:04] LABS: Glucose Point of Care 181 mg/dl (65-105)
[2022-08-23] MEDS: ENOXAPARIN 40 MG/0.4 ML SYRINGE SUB-Q (09:15)
[2022-08-23] MEDS: ASPIRIN 81 MG ENTERIC TABLET PO (09:15)
[2022-08-23] MEDS: HYDROCORTISONE 1% 30 GM CREAM 1 APPLIC TOPICAL (09:16)
[2022-08-23] MEDS: guaiFENesin 12 HR 600 MG TABCR PO (09:16)
[2022-08-23] MEDS: glipiZIDE 5 MG TABLET 10 MG PO (09:16)
[2022-08-23] MEDS: hydrALAZINE HCL 25 MG TABLET PO (09:16)
[2022-08-23] MEDS: FLUTICASONE PROPIONATE 0.05% NA SPR 16 GM BTL (*BKC) 1 SPRAY NASAL (09:16)
[2022-08-23] MEDS: FUROSEMIDE 20 MG TABLET PO (09:16)
[2022-08-23] MEDS: DONEPEZIL HCL 5 MG TABLET PO (09:16)
[2022-08-23] MEDS: MAGNESIUM OXIDE 400 MG TABLET PO (09:17)
[2022-08-23] MEDS: EUCERIN CREAM 120 GM JAR 1 APPLIC TOPICAL (09:17)
[2022-08-23] MEDS: methylPREDNISolone SOD SUCC 40 MG VIAL IV PUSH (09:17)
[2022-08-23] MEDS: PANTOPRAZOLE 40 MG TABLET PO (09:17)
[2022-08-23] MEDS: MULTIVITAMINS THERAPEUTIC TAB (*BKC) 1 TABLET PO (09:17)
[2022-08-23] MEDS: PARoxetine 20 MG TABLET 40 MG PO (09:17)
[2022-08-23] MEDS: carvediloL 25 MG TABLET PO (09:18)
[2022-08-23] MEDS: VITAMIN B COMPLEX CAPSULE 1 CAP PO (09:18)
[2022-08-23] MEDS: INSULIN ASPART (*BKC) 100 UNITS/ML 7 UNITS SUB-Q ×2 (09:25→12:20)
[2022-08-23] MEDS: ALPRAZolam (*CRX) 0.5 MG TABLET 1 MG PO ×2 (09:34)
[2022-08-23 11:16] LABS: Glucose Point of Care 234 mg/dl (65-105)
[2022-08-23] MEDS: INSULIN ASPART (*BKC) 100 UNITS/ML SUB-Q (12:20)
--- NOTE | 2022-08-23 14:18 | P.DS_ITS ---
DS: Admitting Diagnosis Discharge Date 08/23/2022 1418 Admitting Diagnosis Asthma with COPD with exacerbation Chronic respiratory failure with hypoxia Dependence on supplemental oxygen Insulin dependent type 2 diabetes mellitus Chronic kidney disease, stage 3 Hypertension DS: Discharge Diagnosis Discharge Diagnosis (1) Asthma with COPD with exacerbation: Code(s): J44.1 - Chronic obstructive pulmonary disease with (acute) exacerbation; J45.901 - Unspecified asthma with (acute) exacerbation Status: Acute Assessment and Plan: The patient presented to the ED for evaluation body aches, chills, productive cough, chest tightness, shortness of breath, and wheezing. She received nebul izer treatment in the ED and continued to have diffuse wheezing * Negative for COVID and flu * Treated with IV solu-medrol and scheduled duonebs; IV solu-medrol weaned starting 08/22/22 especially given increased anxiousness. * Continuee Singulair * Empiric azithromycin given x5 days and stopped 08/22/22. * EKG revealed tachycardia. Most likely secondary to nebulizer treatments. * Chest x-ray was without acute pulmonary disease and stable compression fractures * She was requiring 2L O2 consistently, but had home O2 needs of 2L at night only. She was weaned to home O2 needs before discharge. * Sputum culture preliminary growth of normal oropharyngeal ashley * 08/18/22 WBC 17.9. Suspected of pneumonia verses sinusitis. Augmentin was added 08/18/22, but stopped 08/19/22 as leukocytosis was thought to be secondary to systemic steroids. * Scheduled Mucinex PO BID given, CPT, spirometry and Pulmozyme. * Flonase and [place] nasal spray added for sinus congestion and nares dryness * Patient given Eucerin for skin irritation. * Transitioned to prednisone on 08/23/22 with taper. * Discharged on Trelegy Ellipta for triple LAMA/LABA/ICS therapy. * She would benefit from outpatient PFTs. 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 accu-checks and hypoglycemic protocol. * 08/22/22 fasting glucose 134. preprandial glucose 250-400 mg/dL. added novolog 7 units with meals TID plus sliding scale. * Lantus, novolog high dose sliding scale, glipizide and sitagliptin continued at discharge. (4) Chronic kidney disease, stage 3: Qualifiers: Chronic kidney disease stage 3 subtype: stage 3a (GFR 45-59) Qualified Code(s): N18.31 - Chronic kidney disease, stage 3a Code(s): N18.30 - Chronic kidney disease, stage 3 unspecified Status: Chronic Assessment and Plan: Patient's creatinine stable Avoid nephrotoxic agents. (5) Hypertension: Qualifiers: Hypertension type: primary hypertension Qualified Code(s): I10 - Essential (primary) hypertension Code(s): I10 - Essential (primary) hypertension Status: Acute Assessment and Plan: Chronic * Continue hydralazine and Coreg * BP elevated 170s/80s. Increase hydralazine 50 mg TID at discharge. * May be some anxiety component and alprazolam PRN continued. * F
--- NOTE | 2022-08-23 14:18 | PM.DS ---
DS: Admitting Diagnosis Discharge Date 08/23/2022 1418 Admitting Diagnosis Asthma with COPD with exacerbation Chronic respiratory failure with hypoxia Dependence on supplemental oxygen Insulin dependent type 2 diabetes mellitus Chronic kidney disease, stage 3 Hypertension DS: Discharge Diagnosis Discharge Diagnosis (1) Asthma with COPD with exacerbation: Code(s): J44.1 - Chronic obstructive pulmonary disease with (acute) exacerbation; J45.901 - Unspecified asthma with (acute) exacerbation Status: Acute Assessment and Plan: The patient presented to the ED for evaluation body aches, chills, productive cough, chest tightness, shortness of breath, and wheezing. She received nebulizer treatment in the ED and continued to have diffuse wheezing Negative for COVID and flu Treated with IV solu-medrol and scheduled duonebs; IV solu-medrol weaned starting 08/22/22 especially given increased anxiousness. Continuee Singulair Empiric azithromycin given x5 days and stopped 08/22/22. EKG revealed tachycardia. Most likely secondary to nebulizer treatments. Chest x-ray was without acute pulmonary disease and stable compression fractures She was requiring 2L O2 consistently, but had home O2 needs of 2L at night only. She was weaned to home O2 needs before discharge. Sputum culture preliminary growth of normal oropharyngeal ashley 08/18/22 WBC 17.9. Suspected of pneumonia verses sinusitis. Augmentin was added 08/18/22, but stopped 08/19/22 as leukocytosis was thought to be secondary to systemic steroids. Scheduled Mucinex PO BID given, CPT, spirometry and Pulmozyme. Flonase and [place] nasal spray added for sinus congestion and nares dryness Patient given Eucerin for skin irritation. Transitioned to prednisone on 08/23/22 with taper. Discharged on Trelegy Ellipta for triple LAMA/LABA/ICS therapy. She would benefit from outpatient PFTs. (2) Chronic respiratory failure with hypoxia, on home oxygen therapy: Code(s): J96.11 - Chronic respiratory failure with hypoxia; Z99.81 - Dependence on supplemental oxygen Status: Acute Assessment and Plan: as above (3) Insulin dependent type 2 diabetes mellitus: Code(s): E11.9 - Type 2 diabetes mellitus without complications; Z79.4 - snf (current) use of insulin Status: Acute Assessment and Plan: Chronic, with hyperglycemia secondary to systemic steroids Insulin glargine 50 units daily Sliding scale 4-8 units novolog while inpatient with [facility] accu-checks and hypoglycemic protocol. 08/22/22 fasting glucose 134. preprandial glucose 250-400 mg/dL. added novolog 7 units with meals TID plus sliding scale. Lantus, novolog high dose sliding scale, glipizide and sitagliptin continued at discharge. (4) Chronic kidney disease, stage 3: Qualifiers: Chronic kidney disease stage 3 subtype: stage 3a (GFR 45-59) Qualified Code(s): N18.31 - Chronic kidney disease, stage 3a Code(s): N18.30 - Chronic kidney disease, stage 3 unspecified Status: Chronic Assessment and Plan: Patient's creatinine stable Avoid nephrotoxic agents. (5) Hypertension: Qualifiers: Hypertension type: primary hypertension Qualified Code(s): I10 - Essential (primary) hypertension Code(s): I10 - Essential (primary) hypertension Status: Acute Assessment and Plan: Chronic Continue hydralazine and Coreg BP elevated 170s/80s. Increase hydralazine 50 mg TID at discharge. May be some anxiety component and alprazolam PRN continued. Further antihypertensive adjustments may be needed. DS: Summary Hospital Course Reason for hospitalization: shortness of breath Hospital Course: Arabella Pike is a 76-year-old female with asthma/ COPD, chronic respiratory failure on 2 liters nasal cannula, hypertension, hyperlipidemia, and insulin-dependent diabetes who presented to the emergency department via EMS from [facility]
[2022-08-23 16:30] LABS: Glucose Point of Care 94 mg/dl (65-105)
== END 2022-08-23 16:44 | DRG 191 ==
LOC: ANHED 15:33 → ANH3MEDSUR 16:07
PROVIDERS: Internal Medicine Critical Care Medicine; Physician Assistant; Admitting Provider Family Medicine; Emergency Provider Emergency Medicine; PCP Nurse Practitioner Family; Visit Provider Nurse Practitioner Family
DX: J44.1 Chronic obstructive pulmonary disease with (acute) exacerbation (principal); J96.11 Chronic respiratory failure with hypoxia; I13.0 Hypertensive heart and chronic kidney disease with heart failure and stage 1 through stage 4 chronic kidney disease, or unspecified chronic kidney disease; J45.901 Unspecified asthma with (acute) exacerbation; N18.31 Chronic kidney disease, stage 3a; I50.9 Heart failure, unspecified; E11.65 Type 2 diabetes mellitus with hyperglycemia; E11.22 Type 2 diabetes mellitus with diabetic chronic kidney disease; E78.5 Hyperlipidemia, unspecified; D64.9 Anemia, unspecified; M19.90 Unspecified osteoarthritis, unspecified site; F41.9 Anxiety disorder, unspecified; I25.10 Atherosclerotic heart disease of native coronary artery without angina pectoris; K21.9 Gastro-esophageal reflux disease without esophagitis; J32.9 Chronic sinusitis, unspecified; R00.0 Tachycardia, unspecified; T50.995A Adverse effect of other drugs, medicaments and biological substances, initial encounter; D72.828 Other elevated white blood cell count; T38.0X5A Adverse effect of glucocorticoids and synthetic analogues, initial encounter; Z79.4 Long term (current) use of insulin; Z79.82 Long term (current) use of aspirin; Z99.81 Dependence on supplemental oxygen; I25.2 Old myocardial infarction; Z86.73 Personal history of transient ischemic attack (TIA), and cerebral infarction without residual deficits; Z90.49 Acquired absence of other specified parts of digestive tract; Z95.5 Presence of coronary angioplasty implant and graft; Z90.710 Acquired absence of both cervix and uterus
CPT/HCPCS: 36415; 36600; 71046; 80048; 80053; 80069; 82375; 82805; 82948; 83050; 83735; 83880; 85025; 85027; 87070; 87205; 87636; 93005; 94640; 94667; 96372; 96374; 96376; 97110; 97116; 97161; 97165; 97530; 99291; A9270; G0378; J1650; J1815; J2920; J2930

== ENCOUNTER 2022-09-28 00:04 | Emergency (ER) | payer MEDICARE, MEDICAID, SELFPAY ==
[2022-09-28] VITALS (7 sets, daily range): BP systolic 137–180; BP diastolic 69–99; PULSE 70–85; RESP 17–28; TEMP 35.8; O2SAT 98–100
--- NOTE | ~2022-09-28 | CT_ITS ---
EXAMINATION: CT abdomen pelvis w con INDICATION: Low back and right lower quadrant pain TECHNIQUE: Computed tomographic images of the abdomen and pelvis were obtained after the administrati on of 100 cc of Omnipaque 350 intravenous contrast. The dose-length product (DLP) was 582.28 mGy-cm. Automated exposure control and iterative reconstruction technique were employed. COMPARISON: 09/10/2013 FINDINGS: Minimal dependent atelectasis is present in the lung bases. The heart size is normal. There is a small sliding hiatal hernia. Hernia repair mesh is seen near the gastroesophageal junction. The liver, spleen, pancreas, gallbladder, and adrenal glands are normal. There are multiple areas of cor tical scarring in the kidneys. Cysts of the kidneys measure up to 1.4 cm on the left. No pathological ly enlarged abdominal or pelvic lymph nodes are identified. No free intraperitoneal gas or evidence o f bowel obstruction. Colonic diverticulosis is present without evidence of diverticulitis. There are compression fractures of T10 and L2 with vertebroplasty change. There is severe lumbar spondylosis. IMPRESSION: 1. No CT correlate for the patient's symptoms. Reviewed, dictated and finalized at location B. ITY CONTROL ASSESSOR
[2022-09-28 07:36] LABS: Appearance Urine Clear (Clear); Bilirubin Urine Negative (Negative); Blood Urine Negative (Negative); Color Urine Yellow (Yellow); Glucose Urine UA Negative (Negative); Ketones Urine Negative (Negative); Leukocyte Esterase Ur Negative LEU/UL (Negative); Nitrate Urine Negative (Negative); Protein Urine Trace mg/dL (Negative); Urobilinogen Urine 0.2 mg/dL (<2.0)
[2022-09-28 07:39] LABS: Bacteria Urine Trace /hpf; RBC Urine 0-2 /hpf (0-2); WBC Urine 0-3 /hpf
[2022-09-28 07:42] LABS: Add Urine Microscopic? YES
--- NOTE | 2022-09-28 08:07 | ED.GENADULT ---
HPI - General Adult General Chief complaint: Back Pain/Injury Stated complaint: back pain Time Seen by Provider: 09/28/22 06:56 History of Present Illness HPI narrative: 76-year-old female presenting to the emergency department for evaluation of acute on chronic lower back and abdominal pain. Patient states for the last 8 months that she has had intermittent lower back pain. Patient describes a midline lower back pain that radiates around to the right side. Patient states pain also radiates around to the right front of her abdomen. Patient reports that she has been treated for urinary tract infections multiple times by her primary care physician. Patient states she is having some urinary symptoms with this. Patient reports that the reason she came to the emergency department because the pain was so bad that she could not sleep. Patient states that she did take Tylenol for pain control yesterday. Patient denies any falls or injuries. Patient denies any nausea vomiting diarrhea. Patient denies any hematuria. Patient denies any prior history of kidney stones. Patient does have history of COPD, hypertension, high cholesterol. Related Data Home Medications Medication Instructions Recorded Confirmed acetaminophen 325 mg capsule 325 mg PO Q6H PRN Pain 10/14/19 08/16/22 alprazolam 0.5 mg tablet 1 mg PO TID PRN Anxiety 10/14/19 08/16/22 aspirin 81 mg tablet,delayed 81 mg PO DAILY 10/14/19 08/16/22 release (Adult Low Dose Aspirin) carvedilol 25 mg tablet (Coreg) 25 mg PO BID 10/14/19 08/16/22 donepezil 5 mg tablet 5 mg PO DAILY 10/14/19 08/16/22 furosemide 20 mg tablet 20 mg PO QAM 10/14/19 08/16/22 glucose 4 gram chewable tablet 4 gm PO Q15M PRN Hypoglycemia 10/14/19 08/16/22 (Dex4 Glucose) insulin glargine 100 unit/mL (3 50 unit subcut HS 10/14/19 08/16/22 mL) subcutaneous pen (Lantus Solostar U-100 Insulin) ipratropium 0.5 mg-albuterol 3 mg 3 ml inhalation Q6H PRN Dyspnea 10/14/19 08/16/22 (2.5 mg base)/3 mL nebulization soln methocarbamol 750 mg tablet 750 mg PO TID PRN Muscle Spasm 10/14/19 08/16/22 montelukast 10 mg tablet 10 mg PO HS 10/14/19 08/16/22 multivitamin 1 tablet PO DAILY 10/14/19 08/16/22 nitroglycerin 0.4 mg sublingual 0.4 mg sublingual Q5M PRN Chest 10/14/19 08/16/22 tablet Pain pantoprazole 40 mg tablet,delayed 40 mg PO DAILY 10/14/19 08/16/22 release paroxetine HCl 40 mg tablet 40 mg PO DAILY 10/14/19 08/16/22 sitagliptin phosphate 100 mg 100 mg PO QAM 10/14/19 08/16/22 tablet (Januvia) vitamin B complex (B 1 tablet PO DAILY 10/14/19 08/16/22 Complex-Vitamin B12 tablet) polyethylene glycol 3350 17 17 gm PO BID PRN Constipation 09/18/21 08/16/22 gram/dose oral powder (Miralax) atorvastatin 20 mg tablet 20 mg PO HS 04/23/22 08/16/22 glipizide 10 mg tablet 10 mg PO DAILY 04/23/22 08/16/22 magnesium oxide 400 mg (241.3 mg 400 mg PO DAILY 04/23/22 08/16/22 magnesium) tablet (MagOx) ondansetron 4 mg disintegrating 4 mg PO Q8H PRN Nausea 04/23/22 08/16/22 tablet Allergies Allergy/AdvReac Type Severity Reaction Status Date / Time meperidine AdvReac Mild Diarrhea Verified 09/28/22 00:11 Review of Systems Review of Systems: CONSTITUTIONAL: Denies fever, chills, or sweats. EYES: Denies visual changes, redness, or discharge. ENT: Denies rhinorrhea, congestion, sore throat, or otalgia. CARDIOVASCULAR: Denies chest pain, palpitations, or edema. RESPIRATORY: Denies cough or dyspnea. GASTROINTESTINAL: Right lower quadrant pain GENITOURINARY: See HPI SKIN: Denies rash or itching. MUSCULOSKELETAL: See HPI NEUROLOGIC: Denies headache, numbness, or weakness. [facility] Past Medical History Medical History Anemia Anxiety Arthritis Asthma Asthma-COPD overlap syndrome Cerebrovascular accident Chronic kidney disease, stage 3 Chronic respiratory failure with hypoxia, on home oxygen therapy Colitis Congestive heart failure Coronary ar
--- NOTE | 2022-09-28 08:27 | PC.NURSE ---
normally incont. of urine
[2022-09-28 08:34] LABS: Basophils Absolute Auto 0.1 K/mm3 (0.0-0.1); Basophils Percent Auto 0.5 % (0.2-1.2); Eosinophils Absolute Auto 0.1 K/mm3 (0-0.3); Eosinophils Percent Auto 1.1 % (0-4.4); Hematocrit 38.7 % (37.0-47.0); Hemoglobin 12.9 g/dL (12.0-15.0); Immature Granulocyte Absolute 0.12 K/mm3 (0.00-0.031); Immature Granulocyte Percent A 1.2 % (0-0.5); Lymphocytes Absolute Auto 1.98 K/mm3 (0.9-3.2); Lymphocytes Percent Auto 19.5 % (18.3-44.2); Mean Corpuscular HGB Conc 33.3 g/dl (32-36); Mean Corpuscular Hemoglobin 31.9 pg (26-34); Mean Corpuscular Volume 95.6 fl (80-100); Mean Platelet Volume 10.4 fl (7.4-10.4); Monocytes Absolute Auto 0.8 K/mm3 (0.1-0.6); Monocytes Percent Auto 7.7 % (2.6-8.5); Neutrophils Absolute Auto 7.1 K/mm3 (1.3-6.7); Platelet Count Result 204 k/mm3 (150-375); Red Blood Count 4.05 M/mm3 (4.2-5.4); Red Cell Distribution Width 12.9 % (11.5-14.5); White Blood Count 10.1 K/mm3 (4.5-10.0)
[2022-09-28 08:53] LABS: Alanine Aminotransferase 24 U/L (6-35); Albumin Level 3.9 g/dL (3.5-5.1); Alkaline Phosphatase 105 U/L (38-126); Anion Gap 4 mmol/L (8-16); Aspartate Amino Transferase 27 U/L (14-36); Bilirubin,Total 0.4 mg/dL (0.2-1.3); Blood Urea Nitrogen 16 mg/dL (7-17); Carbon Dioxide 35 mmol/L (22-30); Chloride 102 mmol/L (98-107); Estimated CRCL calculation 44 ml/min; Estimated Glomerular Filt Rate 54; Glucose 70 mg/dL (65-110); Potassium 3.4 mmol/L (3.4-5.0); Sodium 141 mmol/L (137-145)
[2022-09-28] MEDS: traMADol HCL (*CRX) 50 MG TABLET 25 MG PO (10:22)
== END 2022-09-28 10:30 | disposition home or self-care (01) ==
PROVIDERS: Emergency Provider Emergency Medicine; PCP Nurse Practitioner Family
DX: M54.50 Low back pain, unspecified (principal); G89.29 Other chronic pain; E11.22 Type 2 diabetes mellitus with diabetic chronic kidney disease; I13.0 Hypertensive heart and chronic kidney disease with heart failure and stage 1 through stage 4 chronic kidney disease, or unspecified chronic kidney disease; N18.30 Chronic kidney disease, stage 3 unspecified; I50.9 Heart failure, unspecified; J44.9 Chronic obstructive pulmonary disease, unspecified; I25.10 Atherosclerotic heart disease of native coronary artery without angina pectoris; J96.11 Chronic respiratory failure with hypoxia; I25.2 Old myocardial infarction; E78.00 Pure hypercholesterolemia, unspecified; M19.90 Unspecified osteoarthritis, unspecified site; K21.9 Gastro-esophageal reflux disease without esophagitis; F41.9 Anxiety disorder, unspecified; F32.A Depression, unspecified; Z99.81 Dependence on supplemental oxygen; Z95.5 Presence of coronary angioplasty implant and graft; Z86.2 Personal history of diseases of the blood and blood-forming organs and certain disorders involving the immune mechanism; Z87.01 Personal history of pneumonia (recurrent); Z90.710 Acquired absence of both cervix and uterus; Z79.84 Long term (current) use of oral hypoglycemic drugs; Z79.4 Long term (current) use of insulin; Z79.82 Long term (current) use of aspirin
CPT/HCPCS: 36415; 51701; 74177; 80053; 81001; 85025; 99284; A9270; Q9967

== ENCOUNTER 2023-05-21 10:05 | Emergency (ER) | payer MEDICARE, MEDICAID, SELFPAY ==
[2023-05-21 10:10] VITALS: BP 156/88; PULSE 72; RESP 16; TEMP 36.6; O2SAT 100
--- NOTE | 2023-05-21 11:48 | ED.GENADULT ---
HPI - General Adult General Chief complaint: Unspecified Stated complaint: gi bleed Time Seen by Provider: 05/21/23 11:47 History of Present Illness HPI narrative: Patient is a 77-year-old female with history of diabetes here with painful hemorrhoids. Patient states that she has been having issues with hemorrhoids for the last 1 year. She has seen her primary care doctor for this he referred her to a surgeon out of [facility] and she has a surgery scheduled for July 26. She states that it seems to be worsening despite increasing her fiber intake and taking laxatives. Rectal pain seems to be worse when she is attempting to us go to the bathroom, notes that she has to strain significantly and feels a bulge of tissue exit from her anus. When she stands back up it seems to suck back inside. She does note that she has had some bleeding recently. She has been having some decreased p.o. intake take in decreased appetite due to her associated constipation. She denies any fever chills. She denies any blood thinner use. Today her facility recommended she come in to get evaluated by a doctor. She notes that she is largely independent at her facility. Has not been doing sitz baths. Related Data Home Medications Medication Instructions Recorded Confirmed acetaminophen 325 mg capsule 325 mg PO Q6H PRN Pain 10/14/19 08/16/22 alprazolam 0.5 mg tablet 1 mg PO TID PRN Anxiety 10/14/19 08/16/22 aspirin 81 mg tablet,delayed 81 mg PO DAILY 10/14/19 08/16/22 release (Adult Low Dose Aspirin) carvedilol 25 mg tablet (Coreg) 25 mg PO BID 10/14/19 08/16/22 donepezil 5 mg tablet 5 mg PO DAILY 10/14/19 08/16/22 furosemide 20 mg tablet 20 mg PO QAM 10/14/19 08/16/22 glucose 4 gram chewable tablet 4 gm PO Q15M PRN Hypoglycemia 10/14/19 08/16/22 (Dex4 Glucose) insulin glargine 100 unit/mL (3 50 unit subcut HS 10/14/19 08/16/22 mL) subcutaneous pen (Lantus Solostar U-100 Insulin) ipratropium 0.5 mg-albuterol 3 mg 3 ml inhalation Q6H PRN Dyspnea 10/14/19 08/16/22 (2.5 mg base)/3 mL nebulization soln methocarbamol 750 mg tablet 750 mg PO TID PRN Muscle Spasm 10/14/19 08/16/22 montelukast 10 mg tablet 10 mg PO HS 10/14/19 08/16/22 multivitamin 1 tablet PO DAILY 10/14/19 08/16/22 nitroglycerin 0.4 mg sublingual 0.4 mg sublingual Q5M PRN Chest 10/14/19 08/16/22 tablet Pain pantoprazole 40 mg tablet,delayed 40 mg PO DAILY 10/14/19 08/16/22 release paroxetine HCl 40 mg tablet 40 mg PO DAILY 10/14/19 08/16/22 sitagliptin phosphate 100 mg 100 mg PO QAM 10/14/19 08/16/22 tablet (Januvia) vitamin B complex (B 1 tablet PO DAILY 10/14/19 08/16/22 Complex-Vitamin B12 tablet) polyethylene glycol 3350 17 17 gm PO BID PRN Constipation 09/18/21 08/16/22 gram/dose oral powder (Miralax) atorvastatin 20 mg tablet 20 mg PO HS 04/23/22 08/16/22 glipizide 10 mg tablet 10 mg PO DAILY 04/23/22 08/16/22 magnesium oxide 400 mg (241.3 mg 400 mg PO DAILY 04/23/22 08/16/22 magnesium) tablet (MagOx) ondansetron 4 mg disintegrating 4 mg PO Q8H PRN Nausea 04/23/22 08/16/22 tablet Allergies Allergy/AdvReac Type Severity Reaction Status Date / Time meperidine AdvReac Mild Diarrhea Verified 09/28/22 00:11 Review of Systems Review of Systems: All systems reviewed & are unremarkable except as noted in HPI and below PMFSH Past Medical History Medical History Anemia Anxiety Arthritis Asthma Asthma-COPD overlap syndrome Cerebrovascular accident Chronic kidney disease, stage 3 Chronic respiratory failure with hypoxia, on home oxygen therapy Colitis Congestive heart failure Coronary artery disease Depression Dyslipidemia Gastric ulcer Gastroesophageal reflux disease Hiatal hernia Hypertension Insulin dependent type 2 diabetes mellitus Myocardial infarction Pneumonia Surgical History Surgical History History of appen
== END 2023-05-21 14:32 ==
PROVIDERS: Emergency Provider Student in an Organized Health Care Education/Training Program; PCP Family Medicine
DX: K64.9 Unspecified hemorrhoids (principal); D64.9 Anemia, unspecified; F41.9 Anxiety disorder, unspecified; M19.90 Unspecified osteoarthritis, unspecified site; J45.909 Unspecified asthma, uncomplicated; I13.0 Hypertensive heart and chronic kidney disease with heart failure and stage 1 through stage 4 chronic kidney disease, or unspecified chronic kidney disease; E11.22 Type 2 diabetes mellitus with diabetic chronic kidney disease; N18.30 Chronic kidney disease, stage 3 unspecified; I50.9 Heart failure, unspecified; Z79.4 Long term (current) use of insulin; I25.2 Old myocardial infarction; I25.10 Atherosclerotic heart disease of native coronary artery without angina pectoris; E78.5 Hyperlipidemia, unspecified; F32.A Depression, unspecified; Z86.73 Personal history of transient ischemic attack (TIA), and cerebral infarction without residual deficits
CPT/HCPCS: 99283

== ENCOUNTER 2023-07-01 04:00 | Emergency (ER) | payer MEDICARE, MEDICAID, SELFPAY ==
--- NOTE | ~2023-07-01 | XR_ITS ---
EXAMINATION: XR shoulder LT min 2V DATE: 07/01/2023 04:59 INDICATION: Left shoulder pain. Fall. TECHNIQUE: 3 views of left shoulder were obtained. 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 No acute fracture. There is mild osteoarthritis of acromioclavicular joint. Glenohumeral joint is normal. IMPRESSION: 1. 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 2. Mild acromioclavicular joint osteoarthritis. Reviewed, dictated and finalized at location E. [employer]
[2023-07-01 04:01] VITALS: BP 138/74; PULSE 72; RESP 15; TEMP 36.7; O2SAT 98
[2023-07-01] MEDS: HYDROcodone/acetaminophen (*CRX) 5-325 MG TABLET 1 TAB PO (05:00)
--- NOTE | 2023-07-01 06:14 | ED.FALL ---
HPI - Fall General Chief Complaint: Fall Stated Complaint: Fall Time Seen by Provider: 07/01/23 04:27 History of Present Illness HPI Narrative: patient presents emergency room with left shoulder pain after she fell in the bathroom. Patient hit her left shoulder on the bar in the bathroom. Denies all other injuries. Denies hitting her head or loss of consciousness. Related Data Home Medications Medication Instructions Recorded Confirmed acetaminophen 325 mg capsule 325 mg PO Q6H PRN Pain 10/14/19 08/16/22 alprazolam 0.5 mg tablet 1 mg PO TID PRN Anxiety 10/14/19 08/16/22 aspirin 81 mg tablet,delayed 81 mg PO DAILY 10/14/19 08/16/22 release (Adult Low Dose Aspirin) carvedilol 25 mg tablet (Coreg) 25 mg PO BID 10/14/19 08/16/22 donepezil 5 mg tablet 5 mg PO DAILY 10/14/19 08/16/22 furosemide 20 mg tablet 20 mg PO QAM 10/14/19 08/16/22 glucose 4 gram chewable tablet 4 gm PO Q15M PRN Hypoglycemia 10/14/19 08/16/22 (Dex4 Glucose) insulin glargine 100 unit/mL (3 50 unit subcut HS 10/14/19 08/16/22 mL) subcutaneous pen (Lantus Solostar U-100 Insulin) ipratropium 0.5 mg-albuterol 3 mg 3 ml inhalation Q6H PRN Dyspnea 10/14/19 08/16/22 (2.5 mg base)/3 mL nebulization soln methocarbamol 750 mg tablet 750 mg PO TID PRN Muscle Spasm 10/14/19 08/16/22 montelukast 10 mg tablet 10 mg PO HS 10/14/19 08/16/22 multivitamin 1 tablet PO DAILY 10/14/19 08/16/22 nitroglycerin 0.4 mg sublingual 0.4 mg sublingual Q5M PRN Chest 10/14/19 08/16/22 tablet Pain pantoprazole 40 mg tablet,delayed 40 mg PO DAILY 10/14/19 08/16/22 release paroxetine HCl 40 mg tablet 40 mg PO DAILY 10/14/19 08/16/22 sitagliptin phosphate 100 mg 100 mg PO QAM 10/14/19 08/16/22 tablet (Januvia) vitamin B complex (B 1 tablet PO DAILY 10/14/19 08/16/22 Complex-Vitamin B12 tablet) polyethylene glycol 3350 17 17 gm PO BID PRN Constipation 09/18/21 08/16/22 gram/dose oral powder (Miralax) atorvastatin 20 mg tablet 20 mg PO HS 04/23/22 08/16/22 glipizide 10 mg tablet 10 mg PO DAILY 04/23/22 08/16/22 magnesium oxide 400 mg (241.3 mg 400 mg PO DAILY 04/23/22 08/16/22 magnesium) tablet (MagOx) ondansetron 4 mg disintegrating 4 mg PO Q8H PRN Nausea 04/23/22 08/16/22 tablet Allergies Allergy/AdvReac Type Severity Reaction Status Date / Time meperidine AdvReac Mild Diarrhea Verified 07/01/23 04:06 Review of Systems Review of Systems: Review of systems negative except for what is documented in [facility] Past Medical History Medical History Anemia Anxiety Arthritis Asthma Asthma-COPD overlap syndrome Cerebrovascular accident Chronic kidney disease, stage 3 Chronic respiratory failure with hypoxia, on home oxygen therapy Colitis Congestive heart failure Coronary artery disease Depression Dyslipidemia Gastric ulcer Gastroesophageal reflux disease Hiatal hernia Hypertension Insulin dependent type 2 diabetes mellitus Myocardial infarction Pneumonia Surgical History Surgical History History of appendectomy History of bladder suspension procedure History of cardiac catheterization History of colonoscopy with polypectomy History of coronary artery stent placement History of dilation and curettage History of hysterectomy History of sinus surgery History of tubal ligation Family History Family History Mother Family history of diabetes mellitus in first degree relative Family history of primary malignant neoplasm of liver Family history of heart disease in male family member before age 55 Family history of hearing loss Family history of liver disease Diabetes mellitus Cerebrovascular accident Family history of pancreatic cancer Hypertension Father Family history of emphysema Sibling Diabetes mellitus Other Depression Family history of alcoholism
[2023-07-01 07:02] VITALS: BP 134/56; PULSE 66; RESP 15; O2SAT 100
== END 2023-07-01 07:20 | disposition home or self-care (01) ==
PROVIDERS: Emergency Provider Emergency Medicine; PCP Family Medicine
DX: S42.032P Displaced fracture of lateral end of left clavicle, subsequent encounter for fracture with malunion (principal); F41.9 Anxiety disorder, unspecified; M19.90 Unspecified osteoarthritis, unspecified site; J45.909 Unspecified asthma, uncomplicated; I13.0 Hypertensive heart and chronic kidney disease with heart failure and stage 1 through stage 4 chronic kidney disease, or unspecified chronic kidney disease; E11.22 Type 2 diabetes mellitus with diabetic chronic kidney disease; N18.30 Chronic kidney disease, stage 3 unspecified; I50.9 Heart failure, unspecified; Z79.4 Long term (current) use of insulin; K21.9 Gastro-esophageal reflux disease without esophagitis; I25.10 Atherosclerotic heart disease of native coronary artery without angina pectoris; W22.09XA Striking against other stationary object, initial encounter
CPT/HCPCS: 73030; 99283; A9270

== ENCOUNTER 2023-11-22 16:38 | Emergency (ER) | payer MEDICARE, MEDICAID, SELFPAY ==
--- NOTE | ~2023-11-22 | XR_ITS ---
XR knee RT min 4V DATE: 11/22/2023 17:55 INDICATION: Fall. Lateral knee pain TECHNIQUE: 4 views COMPARISON: None FINDINGS: Moderate osteoarthritic changes are noted, most prominent at the lateral compartment. No fracture or dislocation, periosteal reaction or bone destruction is detected. Small suprapatellar knee joint effusion is not excluded. IMPRESSION: Moderate osteoarthritic change Cannot exclude small suprapatellar knee joint effusion Reviewed, dictated and finalized at location A.
[2023-11-22 16:43] VITALS: BP 155/83; PULSE 81; RESP 17; TEMP 36.7; O2SAT 97
--- NOTE | 2023-11-22 17:03 | ED.GENADULT ---
HPI - General Adult General Chief complaint: Fall Stated complaint: FALL Time Seen by Provider: 11/22/23 16:56 History of Present Illness HPI narrative: 78-year-old female presents for evaluation of right knee pain after mechanical fall. No head or neck trauma. Related Data Home Medications Medication Instructions Recorded Confirmed acetaminophen 325 mg capsule 325 mg PO Q6H PRN Pain 10/14/19 08/16/22 alprazolam 0.5 mg tablet 1 mg PO TID PRN Anxiety 10/14/19 08/16/22 aspirin 81 mg tablet,delayed 81 mg PO DAILY 10/14/19 08/16/22 release (Adult Low Dose Aspirin) carvedilol 25 mg tablet (Coreg) 25 mg PO BID 10/14/19 08/16/22 donepezil 5 mg tablet 5 mg PO DAILY 10/14/19 08/16/22 furosemide 20 mg tablet 20 mg PO QAM 10/14/19 08/16/22 glucose 4 gram chewable tablet 4 gm PO Q15M PRN Hypoglycemia 10/14/19 08/16/22 (Dex4 Glucose) insulin glargine 100 unit/mL (3 50 unit subcut HS 10/14/19 08/16/22 mL) subcutaneous pen (Lantus Solostar U-100 Insulin) ipratropium 0.5 mg-albuterol 3 mg 3 ml inhalation Q6H PRN Dyspnea 10/14/19 08/16/22 (2.5 mg base)/3 mL nebulization soln methocarbamol 750 mg tablet 750 mg PO TID PRN Muscle Spasm 10/14/19 08/16/22 montelukast 10 mg tablet 10 mg PO HS 10/14/19 08/16/22 multivitamin 1 tablet PO DAILY 10/14/19 08/16/22 nitroglycerin 0.4 mg sublingual 0.4 mg sublingual Q5M PRN Chest 10/14/19 08/16/22 tablet Pain pantoprazole 40 mg tablet,delayed 40 mg PO DAILY 10/14/19 08/16/22 release paroxetine HCl 40 mg tablet 40 mg PO DAILY 10/14/19 08/16/22 sitagliptin phosphate 100 mg 100 mg PO QAM 10/14/19 08/16/22 tablet (Januvia) vitamin B complex (B 1 tablet PO DAILY 10/14/19 08/16/22 Complex-Vitamin B12 tablet) polyethylene glycol 3350 17 17 gm PO BID PRN Constipation 09/18/21 08/16/22 gram/dose oral powder (Miralax) atorvastatin 20 mg tablet 20 mg PO HS 04/23/22 08/16/22 glipizide 10 mg tablet 10 mg PO DAILY 04/23/22 08/16/22 magnesium oxide 400 mg (241.3 mg 400 mg PO DAILY 04/23/22 08/16/22 magnesium) tablet (MagOx) ondansetron 4 mg disintegrating 4 mg PO Q8H PRN Nausea 04/23/22 08/16/22 tablet Allergies Allergy/AdvReac Type Severity Reaction Status Date / Time meperidine AdvReac Mild Diarrhea Verified 11/22/23 16:42 Review of Systems Review of Systems: CONSTITUTIONAL: Denies fever, chills, or sweats. EYES: Denies visual changes, redness, or discharge. ENT: Denies rhinorrhea, congestion, sore throat, or otalgia. CARDIOVASCULAR: Denies chest pain, palpitations, or edema. RESPIRATORY: Denies cough or dyspnea. GASTROINTESTINAL: Denies abdominal pain, nausea, vomiting, or diarrhea. GENITOURINARY: Denies dysuria or hematuria. SKIN: Denies rash or itching. MUSCULOSKELETAL: Denies back pain, joint pain, or myalgia. NEUROLOGIC: Denies headache, numbness, or weakness. PSYCHIATRIC: Denies anxiety or depression. [facility] Past Medical History Medical History Anemia Anxiety Arthritis Asthma Asthma-COPD overlap syndrome Cerebrovascular accident Chronic kidney disease, stage 3 Chronic respiratory failure with hypoxia, on home oxygen therapy Colitis Congestive heart failure Coronary artery disease Depression Dyslipidemia Gastric ulcer Gastroesophageal reflux disease Hiatal hernia Hypertension Insulin dependent type 2 diabetes mellitus Myocardial infarction Pneumonia Surgical History Surgical History History of appendectomy History of bladder suspension procedure History of cardiac catheterization History of colonoscopy with polypectomy History of coronary artery stent placement History of dilation and curettage History of hysterectomy History of sinus surgery History of tubal ligation Family History Family History Mother Family history of diabetes mellitus in first degree relative Family his
[2023-11-22] MEDS: MORPHINE SULFATE (*CRX) 2 MG/ML INJ IV PUSH (17:13)
[2023-11-22 18:12] VITALS: BP 177/81; PULSE 83; RESP 25; O2SAT 96
[2023-11-22 19:04] VITALS: BP 167/79; PULSE 84; RESP 14; O2SAT 97
--- NOTE | 2023-11-22 19:22 | PC.NURSE ---
[facility] called and given report regarding patient return.
== END 2023-11-22 19:29 ==
PROVIDERS: Emergency Provider Emergency Medicine; PCP Family Medicine
DX: M25.561 Pain in right knee (principal); F41.9 Anxiety disorder, unspecified; J45.909 Unspecified asthma, uncomplicated; N18.30 Chronic kidney disease, stage 3 unspecified; I50.9 Heart failure, unspecified; E78.5 Hyperlipidemia, unspecified; K21.9 Gastro-esophageal reflux disease without esophagitis; E11.22 Type 2 diabetes mellitus with diabetic chronic kidney disease; Z79.4 Long term (current) use of insulin; I13.0 Hypertensive heart and chronic kidney disease with heart failure and stage 1 through stage 4 chronic kidney disease, or unspecified chronic kidney disease; I25.2 Old myocardial infarction
CPT/HCPCS: 73564; 96374; 99284; J2270

== ENCOUNTER 2023-12-02 19:21 | Emergency (ER) | payer MEDICARE, MEDICAID, SELFPAY ==
--- NOTE | ~2023-12-02 | CT_ITS ---
EXAMINATION: CT abdomen pelvis w con DATE: 12/02/2023 22:30 INDICATION: trauma/right flank pain/hematuria TECHNIQUE: Computed tomography (CT) of the abdomen and pelvis was performed with 100 mL Omnipaque-350 intravenous contrast. Automated exposure control and iterative reconstruction technique were employe d. The dose-length product was 680.55 mGy-cm. COMPARISON: 09/18/2022, report only. FINDINGS: Lower thorax: Mild dependent scar/atelectasis. Coronary artery aortic and mitral calcification. Liver: Normal. Biliary/Gallbladder: Gallbladder is normal. No bile duct dilation. Pancreas: Moderate atrophy. Spleen: Normal. Adrenals:No mass. Kidneys: Indeterminate density 1 cm right midpole lesion. Bilateral scarring and cortical thinning. S imple midpole cysts. GI tract: Moderate hiatal hernia. Prior GE junction surgery. Moderate distal esophageal and gastric w all edema. No small or large bowel dilation. Appendix not confidently visualized. Hypermobile cecum. Diverticulosis without diverticulitis. Mesentery/Peritoneum: No ascites, mass, or free air. Retroperitoneum: No mass. Atherosclerotic abdominal aortic and/or arterial calcifications. Pelvis: Moderately distended urinary bladder with wall thickening. Absent uterus. Normal left ovary. Right ovary not confidently visualized. Soft Tissues: Soft tissues and body wall unremarkable. Bones: No acute osseous finding. Chronic compression fractures and vertebroplasty cement at L2 and T 10. IMPRESSION: Moderate esophagitis/gastritis. Indeterminate density 1 cm right midpole lesion, recommend nonemergent but timely outpatient CT or MR I without and with contrast for further evaluation. Possible cystitis, correlate with urinalysis. Reviewed, dictated and finalized at location K. IMPRESSION: Moderate esophagitis/gastritis. Indeterminate density 1 cm right midpole lesion, recommend nonemergent but time ly outpatient CT or MRI without and with contrast for further evaluation. Possible cystitis, correlate with urinalysis.
[2023-12-02 19:22] VITALS: BP 123/87; PULSE 85; RESP 18; TEMP 37.2; O2SAT 100
[2023-12-02 19:38] VITALS: BP 166/83; PULSE 84; RESP 20; O2SAT 99
[2023-12-02 21:10] LABS: Appearance Urine Clear (Clear); Bacteria Urine 4+ /hpf; Bilirubin Urine Negative (Negative); Blood Urine Negative (Negative); Color Urine Dark Yellow (Yellow); Glucose Urine UA Trace mg/dL (Negative); Ketones Urine Negative (Negative); Leukocyte Esterase Ur 2+ LEU/UL (Negative); Nitrate Urine Positive (Negative); Non Pathogenic Casts 0-2; Protein Urine Negative (Negative); RBC Urine 0-2 /hpf (0-2); Specific Grav Ur 1.012 (1.001-1.035); Squamous Epithelial Cell Urine None Seen /hpf (Few); WBC Urine 21-50 /hpf (0-3); pH Urine 5.5 (5.0-9.0)
[2023-12-02 21:14] LABS: Add Urine Microscopic? YES
[2023-12-02 21:31] LABS: Basophils Percent Auto 0.3 % (0.2-1.2); Eosinophils Absolute Auto 0.2 K/mm3 (0-0.3); Eosinophils Percent Auto 2.3 % (0-4.4); Hematocrit 36.9 % (37.0-47.0); Hemoglobin 11.8 g/dL (12.0-15.0); Immature Granulocyte Absolute 0.05 K/mm3 (0.00-0.031); Immature Granulocyte Percent A 0.6 % (0-0.5); Lymphocytes Absolute Auto 1.78 K/mm3 (0.9-3.2); Lymphocytes Percent Auto 19.6 % (18.3-44.2); Mean Corpuscular Hemoglobin 29.3 pg (26-34); Mean Corpuscular Volume 91.6 fl (80-100); Mean Platelet Volume 10.6 fl (7.4-10.4); Monocytes Absolute Auto 0.9 K/mm3 (0.1-0.6); Monocytes Percent Auto 9.5 % (2.6-8.5); Neutrophils Absolute Auto 6.2 K/mm3 (1.3-6.7); Neutrophils Percent Auto 67.7 % (45.5-73.1); Platelet Count Result 254 k/mm3 (150-375); Red Blood Count 4.03 M/mm3 (4.2-5.4); Red Cell Distribution Width 12.8 % (11.5-14.5); White Blood Count 9.1 K/mm3 (4.5-10.0)
[2023-12-02 21:32] VITALS: BP 147/93; PULSE 85; RESP 23; O2SAT 97
[2023-12-02 21:42] LABS: Alanine Aminotransferase 22 U/L (6-35); Albumin Level 4.1 g/dL (3.5-5.1); Alkaline Phosphatase 130 U/L (38-126); Anion Gap 5 mmol/L (4-12); Aspartate Amino Transferase 22 U/L (14-36); Bilirubin,Total 0.6 mg/dL (0.2-1.3); Blood Urea Nitrogen 29 mg/dL (7-17); Calcium 9.5 mg/dL (8.4-10.2); Carbon Dioxide 32 mmol/L (22-30); Chloride 102 mmol/L (98-107); Estimated CRCL calculation 35 ml/min; Estimated Glomerular Filt Rate 44; Glucose 182 mg/dL (65-110); Lipase 79 U/L (23-300); Potassium 3.7 mmol/L (3.4-5.0); Sodium 139 mmol/L (137-145)
[2023-12-02 21:43] LABS: Prothrombin Time 14.1 Seconds (11.1-14.7)
--- NOTE | 2023-12-02 22:04 | ED.FALL ---
HPI - Fall General Chief Complaint: Fall Stated Complaint: fall this weekend, r kidney pain Time Seen by Provider: 12/02/23 19:42 History of Present Illness HPI Narrative: Patient is a 78-year-old female who presents ER with right-sided flank pain. Patient had a fall from standing 2 days ago. Has had pain in the right flank where there is bruising since then. She reports some blood in her urine as well. She did not strike her head or lose consciousness.. She is not on any blood thinning medication. No abdominal discomfort. No additional injury. Related Data Home Medications Medication Instructions Recorded Confirmed acetaminophen 325 mg capsule 325 mg PO Q6H PRN Pain 10/14/19 12/03/23 alprazolam 0.5 mg tablet 1 mg PO TID PRN Anxiety 10/14/19 12/03/23 aspirin 81 mg tablet,delayed 81 mg PO DAILY 10/14/19 12/03/23 release (Adult Low Dose Aspirin) carvedilol 25 mg tablet (Coreg) 25 mg PO BID 10/14/19 12/03/23 donepezil 5 mg tablet 5 mg PO DAILY 10/14/19 12/03/23 furosemide 20 mg tablet 20 mg PO QAM 10/14/19 12/03/23 glucose 4 gram chewable tablet 4 gm PO Q15M PRN Hypoglycemia 10/14/19 12/03/23 (Dex4 Glucose) insulin glargine 100 unit/mL (3 50 unit subcut HS 10/14/19 12/03/23 mL) subcutaneous pen (Lantus Solostar U-100 Insulin) ipratropium 0.5 mg-albuterol 3 mg 3 ml inhalation Q6H PRN Dyspnea 10/14/19 12/03/23 (2.5 mg base)/3 mL nebulization soln methocarbamol 750 mg tablet 750 mg PO TID PRN Muscle Spasm 10/14/19 12/03/23 montelukast 10 mg tablet 10 mg PO HS 10/14/19 12/03/23 multivitamin 1 tablet PO DAILY 10/14/19 12/03/23 nitroglycerin 0.4 mg sublingual 0.4 mg sublingual Q5M PRN Chest 10/14/19 12/03/23 tablet Pain pantoprazole 40 mg tablet,delayed 40 mg PO DAILY 10/14/19 12/03/23 release paroxetine HCl 40 mg tablet 40 mg PO DAILY 10/14/19 12/03/23 sitagliptin phosphate 100 mg 100 mg PO QAM 10/14/19 12/03/23 tablet (Januvia) vitamin B complex (B 1 tablet PO DAILY 10/14/19 12/03/23 Complex-Vitamin B12 tablet) polyethylene glycol 3350 17 17 gm PO BID PRN Constipation 09/18/21 12/03/23 gram/dose oral powder (Miralax) atorvastatin 20 mg tablet 20 mg PO HS 04/23/22 12/03/23 glipizide 10 mg tablet 10 mg PO DAILY 04/23/22 12/03/23 magnesium oxide 400 mg (241.3 mg 400 mg PO DAILY 04/23/22 12/03/23 magnesium) tablet (MagOx) ondansetron 4 mg disintegrating 4 mg PO Q8H PRN Nausea 04/23/22 12/03/23 tablet Allergies Allergy/AdvReac Type Severity Reaction Status Date / Time meperidine AdvReac Mild Diarrhea Verified 12/03/23 11:09 Review of Systems Review of Systems: All systems reviewed & are unremarkable except as noted in HPI and below Constitutional: Constitutional: Reports no additional constitutional complaints ENT: Reports system reviewed and no additional complaints, except as documented Cardiovascular: Cardiovascular: Reports no additional cardiovascular complaints Respiratory: Respiratory: Reports no additional respiratory complaints Genitourinary: Genitourinary: Reports hematuria, Denies nocturia and Reports flank pain Musculoskeletal: Musculoskeletal: Reports back pain, Denies arthralgias and Denies joint swelling Integumentary/Breasts: Skin/Breast: Reports system reviewed and no additional complaints, except as docu PMF Past Medical History Medical History (Updated 12/04/23 @ 00:00 by Background Daemon) Anemia Anxiety Arthritis Asthma Asthma-COPD overlap syndrome Cerebrovascular accident Chronic kidney disease, stage 3 Chronic respiratory failure with hypoxia, on home oxygen therapy Colitis Congestive heart failure COPD exacerbation Coronary artery disease Depression Dyslipidemia Gastric ulcer Gastroesophageal reflux disease Hiatal hernia Hypertension Insulin dependent type 2 diabetes mellitus Myocardial infarction Pneumonia Surgical History Surgical History History of appendectomy History of bladder susp
[2023-12-02] MEDS: CEPHALEXIN 500 MG CAPSULE PO (23:10)
[2023-12-02 23:42] VITALS: BP 158/84; PULSE 86; RESP 22; O2SAT 97
[2023-12-03] MEDS: ACETAMINOPHEN 325 MG TABLET 650 MG PO (00:39)
== END 2023-12-03 02:00 ==
PROVIDERS: Emergency Provider Emergency Medicine; PCP Family Medicine
DX: S30.1XXA Contusion of abdominal wall, initial encounter (principal); N39.0 Urinary tract infection, site not specified; E11.22 Type 2 diabetes mellitus with diabetic chronic kidney disease; I13.0 Hypertensive heart and chronic kidney disease with heart failure and stage 1 through stage 4 chronic kidney disease, or unspecified chronic kidney disease; N18.30 Chronic kidney disease, stage 3 unspecified; I50.9 Heart failure, unspecified; I25.10 Atherosclerotic heart disease of native coronary artery without angina pectoris; I25.2 Old myocardial infarction; E78.5 Hyperlipidemia, unspecified; J44.9 Chronic obstructive pulmonary disease, unspecified; D64.9 Anemia, unspecified; K21.9 Gastro-esophageal reflux disease without esophagitis; M19.90 Unspecified osteoarthritis, unspecified site; F32.A Depression, unspecified; F41.9 Anxiety disorder, unspecified; Z95.5 Presence of coronary angioplasty implant and graft; Z86.73 Personal history of transient ischemic attack (TIA), and cerebral infarction without residual deficits; Z87.01 Personal history of pneumonia (recurrent); Z86.010 Personal history of colon polyps; Z90.710 Acquired absence of both cervix and uterus; Z77.22 Contact with and (suspected) exposure to environmental tobacco smoke (acute) (chronic); Z79.82 Long term (current) use of aspirin; Z79.4 Long term (current) use of insulin; Z79.84 Long term (current) use of oral hypoglycemic drugs; K20.90 Esophagitis, unspecified without bleeding; K29.70 Gastritis, unspecified, without bleeding; N28.9 Disorder of kidney and ureter, unspecified; W18.30XA Fall on same level, unspecified, initial encounter
CPT/HCPCS: 36415; 74177; 80053; 81001; 83690; 85025; 85610; 85730; 87077; 87086; 87088; 87186; 99284; A9270; Q9967

== ENCOUNTER 2024-01-13 09:05 | Emergency (ER) | payer MEDICARE, MEDICAID, SELFPAY ==
--- NOTE | ~2024-01-13 | XR_ITS ---
EXAMINATION: XR chest 2V 01/13/2024 10:34 INDICATION: Shortness of breath. Hypertension. PROCEDURE: 2 view chest COMPARISON: 08/16/2022 FINDINGS: The lungs are clear. The cardiomediastinal silhouette is within normal limits. There are no pleural effusions. There is no pneumothorax suspected. There are multiple compression fractures of the thoracic spine treated with vertebroplasty. IMPRESSION: 1: NO ACUTE CARDIOPULMONARY DISEASE. Reviewed, dictated and finalized at location B.
[2024-01-13 09:04] VITALS: BP 157/88; PULSE 78; RESP 25; TEMP 36.4; O2SAT 96
[2024-01-13 09:10] VITALS: RESP 17; O2SAT 97
--- NOTE | 2024-01-13 09:14 | ECG_ITS ---
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 Measurements Intervals [place] Rate: 72 P: 35 VA: 189 QRS: 9 QRSD: 76 T: 45 QT: 399 QTc: 437 Interpretive Statements SINUS RHYTHM LOW QRS VOLTAGE IN PRECORDIAL LEADS [QRS DEFLECTION < 1.0 mV IN CHEST LEADS] BORDERLINE ECG No previous ECG available for comparison Electronically Signed On 01-13-2024 14:50:33 CDT by Lisandro Maddox M.D.
[2024-01-13 09:16] LABS: Glucose Point of Care 68 mg/dl (65-105)
--- NOTE | 2024-01-13 09:37 | PCRCNOTE ---
Pt. is eating breakfast; R.N. will call when she is done eatiing. Dr. Bowden is aware.
[2024-01-13 09:39] LABS: Basophils Percent Auto 0.3 % (0.2-1.2); Eosinophils Absolute Auto 0.3 K/mm3 (0-0.3); Eosinophils Percent Auto 3.2 % (0-4.4); Hematocrit 36.6 % (37.0-47.0); Hemoglobin 11.9 g/dL (12.0-15.0); Immature Granulocyte Absolute 0.05 K/mm3 (0.00-0.031); Immature Granulocyte Percent A 0.5 % (0-0.5); Lymphocytes Absolute Auto 1.77 K/mm3 (0.9-3.2); Lymphocytes Percent Auto 18.1 % (18.3-44.2); Mean Corpuscular HGB Conc 32.5 g/dl (32-36); Mean Corpuscular Hemoglobin 29.8 pg (26-34); Mean Corpuscular Volume 91.5 fl (80-100); Mean Platelet Volume 10.3 fl (7.4-10.4); Monocytes Absolute Auto 0.7 K/mm3 (0.1-0.6); Neutrophils Absolute Auto 6.9 K/mm3 (1.3-6.7); Neutrophils Percent Auto 70.9 % (45.5-73.1); Platelet Count Result 254 k/mm3 (150-375); White Blood Count 9.8 K/mm3 (4.5-10.0)
--- NOTE | 2024-01-13 09:50 | ED.GENADULT ---
HPI - General Adult General Chief complaint: Recheck/Abnormal Lab/Rx Stated complaint: hypoglycemia Time Seen by Provider: 01/13/24 09:09 History of Present Illness HPI narrative: patient is a 78-year-old female who presents ER with hyperglycemia. Patient had a blood sugar around 26 as well as 44 at her snf and for EMS. She was given oral glucose. Patient denies any complaints at this time. She has no chest pain or abdominal pain. No nausea or vomiting. She denies receiving any of her insulin today. She has not yet eaten today. shows reports she has been having some urinary frequency and urgency and that her doctors not been listening to her. She reports she has had some mild discomfort in her left abdomen that moves to the left flank related to this. No aggravating or alleviating factors. Related Data Home Medications Medication Instructions Recorded Confirmed acetaminophen 325 mg capsule 325 mg PO Q6H PRN Pain 10/14/19 12/03/23 alprazolam 0.5 mg tablet 1 mg PO TID PRN Anxiety 10/14/19 12/03/23 aspirin 81 mg tablet,delayed 81 mg PO DAILY 10/14/19 12/03/23 release (Adult Low Dose Aspirin) carvedilol 25 mg tablet (Coreg) 25 mg PO BID 10/14/19 12/03/23 donepezil 5 mg tablet 5 mg PO DAILY 10/14/19 12/03/23 furosemide 20 mg tablet 20 mg PO QAM 10/14/19 12/03/23 glucose 4 gram chewable tablet 4 gm PO Q15M PRN Hypoglycemia 10/14/19 12/03/23 (Dex4 Glucose) insulin glargine 100 unit/mL (3 50 unit subcut HS 10/14/19 12/03/23 mL) subcutaneous pen (Lantus Solostar U-100 Insulin) ipratropium 0.5 mg-albuterol 3 mg 3 ml inhalation Q6H PRN Dyspnea 10/14/19 12/03/23 (2.5 mg base)/3 mL nebulization soln methocarbamol 750 mg tablet 750 mg PO TID PRN Muscle Spasm 10/14/19 12/03/23 montelukast 10 mg tablet 10 mg PO HS 10/14/19 12/03/23 multivitamin 1 tablet PO DAILY 10/14/19 12/03/23 nitroglycerin 0.4 mg sublingual 0.4 mg sublingual Q5M PRN Chest 10/14/19 12/03/23 tablet Pain pantoprazole 40 mg tablet,delayed 40 mg PO DAILY 10/14/19 12/03/23 release paroxetine HCl 40 mg tablet 40 mg PO DAILY 10/14/19 12/03/23 sitagliptin phosphate 100 mg 100 mg PO QAM 10/14/19 12/03/23 tablet (Januvia) vitamin B complex (B 1 tablet PO DAILY 10/14/19 12/03/23 Complex-Vitamin B12 tablet) polyethylene glycol 3350 17 17 gm PO BID PRN Constipation 09/18/21 12/03/23 gram/dose oral powder (Miralax) atorvastatin 20 mg tablet 20 mg PO HS 04/23/22 12/03/23 glipizide 10 mg tablet 10 mg PO DAILY 04/23/22 12/03/23 magnesium oxide 400 mg (241.3 mg 400 mg PO DAILY 04/23/22 12/03/23 magnesium) tablet (MagOx) ondansetron 4 mg disintegrating 4 mg PO Q8H PRN Nausea 04/23/22 12/03/23 tablet Allergies Allergy/AdvReac Type Severity Reaction Status Date / Time meperidine AdvReac Mild Diarrhea Verified 12/03/23 11:09 Review of Systems Review of Systems: All systems reviewed & are unremarkable except as noted in HPI and below Constitutional: Constitutional: Reports no additional constitutional complaints ENT: Reports system reviewed and no additional complaints, except as documented Cardiovascular: Cardiovascular: Reports no additional cardiovascular complaints Respiratory: Respiratory: Reports no additional respiratory complaints Gastrointestinal: Gastrointestinal: Reports abdominal pain, Denies diarrhea, Denies nausea and Denies vomiting Genitourinary: Genitourinary: Reports nocturia, Denies dysuria, Reports flank pain and Denies urinary incontinence Integumentary/Breasts: Skin/Breast: Reports system reviewed and no additional complaints, except as docu PMFSH Past Medical History Medical History (Updated 01/13/24 @ 12:24 by Jaden Bowden MD) Anemia Anxiety Arthritis Asthma Asthma-COPD overlap syndrome Cerebrovascular accident Chronic kidney disease, stage 3 Chronic respiratory failure with hypoxia, on home oxygen therapy Colitis Congestive heart failure COPD exacerbation Coronary artery disease Depression Dys
[2024-01-13 10:00] LABS: Alanine Aminotransferase 27 U/L (6-35); Albumin Level 3.7 g/dL (3.5-5.1); Alkaline Phosphatase 125 U/L (38-126); Anion Gap 5 mmol/L (4-12); Aspartate Amino Transferase 25 U/L (14-36); Bilirubin,Total 0.5 mg/dL (0.2-1.3); Blood Urea Nitrogen 18 mg/dL (7-17); Calcium 9.1 mg/dL (8.4-10.2); Carbon Dioxide 30 mmol/L (22-30); Chloride 105 mmol/L (98-107); Estimated CRCL calculation 37 ml/min; Estimated Glomerular Filt Rate 44; Glucose 59 mg/dL (65-110); Potassium 3.9 mmol/L (3.4-5.0); Sodium 140 mmol/L (137-145)
[2024-01-13 10:12] VITALS: PULSE 73; RESP 20
[2024-01-13] MEDS: IPRATROPIUM 0.5 MG/ALBUTEROL SULFATE 2.5 MG AMPUL.NEB 3 ML INHALATION (10:12)
[2024-01-13 10:21] VITALS: PULSE 71; RESP 17
[2024-01-13 10:24] VITALS: PULSE 74; RESP 18; TEMP 36.8; O2SAT 97
[2024-01-13 10:24] LABS: Glucose Point of Care 99 mg/dl (65-105)
[2024-01-13 10:24] LABS: Appearance Urine Turbid (Clear); Bacteria Urine 4+ /hpf; Bilirubin Urine Negative (Negative); Blood Urine 2+ (Negative); Color Urine Yellow (Yellow); Glucose Urine UA Negative (Negative); Ketones Urine Negative (Negative); Leukocyte Esterase Ur 3+ LEU/UL (Negative); Need Manual Microscopic Reviewed; Nitrate Urine Positive (Negative); Non Pathogenic Casts 0-2; Protein Urine Trace mg/dL (Negative); Specific Grav Ur 1.009 (1.001-1.035); Squamous Epithelial Cell Urine None Seen /hpf (Few); Urobilinogen Urine 0.2 mg/dL (<2.0); WBC Urine >100 /hpf (0-3)
[2024-01-13 10:26] LABS: Add Urine Microscopic? YES
--- NOTE | 2024-01-13 10:58 | PC.NURSE ---
1030 - Bedside glucose 99 after breakfast meal
[2024-01-13 12:03] VITALS: BP 168/86; PULSE 75; RESP 16; O2SAT 96
== END 2024-01-13 13:30 ==
PROVIDERS: Emergency Provider Emergency Medicine; PCP Nurse Practitioner Family
DX: E11.649 Type 2 diabetes mellitus with hypoglycemia without coma (principal); Z79.82 Long term (current) use of aspirin; Z79.4 Long term (current) use of insulin; F41.8 Other specified anxiety disorders; J45.909 Unspecified asthma, uncomplicated; N18.30 Chronic kidney disease, stage 3 unspecified; E11.22 Type 2 diabetes mellitus with diabetic chronic kidney disease; I50.9 Heart failure, unspecified; I25.10 Atherosclerotic heart disease of native coronary artery without angina pectoris; E78.5 Hyperlipidemia, unspecified; K21.9 Gastro-esophageal reflux disease without esophagitis; I13.0 Hypertensive heart and chronic kidney disease with heart failure and stage 1 through stage 4 chronic kidney disease, or unspecified chronic kidney disease; N39.0 Urinary tract infection, site not specified
CPT/HCPCS: 36415; 71046; 80053; 81001; 82948; 85025; 87077; 87086; 87088; 87186; 93005; 94640; 96365; 99284; J0696

== ENCOUNTER 2024-03-14 12:25 | Emergency (ER) | payer MEDICARE, MEDICAID, SELFPAY ==
--- NOTE | ~2024-03-14 | XR_ITS ---
XR chest 2V DATE: 03/14/2024 14:50 INDICATION: Fall TECHNIQUE: AP and lateral views COMPARISON: 01/13/2024 2 view chest FINDINGS: Borderline heart size. There is left coronary artery calcification or stent. Aortic calcification and unfolding. The patient is rotated which likely accounts for the appearance of mild rightward shift of heart and mediastinum. No pulmonary infiltrate or consolidation, pleural effusion or pulmonary vascular congestion or pneumo thorax is detected. Chronic deformity of the left acromion clavicular area. Vertebroplasty at T10 fracture deformity. Osteopenia. IMPRESSION: Borderline heart size Aortic and coronary artery atherosclerosis No active pulmonary disease Chronic fracture deformity and vertebroplasty at T10 Reviewed, dictated and finalized at location J.
--- NOTE | ~2024-03-14 | XR_ITS ---
XR shoulder RT min 2V DATE: 03/14/2024 14:50 INDICATION: Ground-level fall. Right shoulder injury, pain TECHNIQUE: 4 views COMPARISON: None FINDINGS: No fracture, dislocation, periosteal reaction or bone destruction. Mild osteoarthritis of t he right glenohumeral joint. IMPRESSION: No fracture or dislocation Mild right glenohumeral osteoarthritis Reviewed, dictated and finalized at location [facility].
--- NOTE | ~2024-03-14 | CT_ITS ---
EXAMINATION: CT lumbar spine wo con DATE: 03/14/2024 15:10 INDICATION: Fall. Lower back pain. TECHNIQUE: Computed tomography (CT) of the lumbar spine was performed without intravenous contrast. T he mA was adjusted according to patient size. Iterative reconstruction technique was employed. Exam d ose: 1218.46 mGy-cm total exam DLP. Lumbar spine COMPARISON: 02/04/2018 CT lumbar spine FINDINGS: There is stable moderately severe compression fracture and vertebroplasty at L2. There is chronic severe degenerative disc disease at L5-S1 with very prominent posterior spurring. There is significantly increased now severe degenerative disc disease at L5-S1 with prominent eburnat ion of apposing vertebral bodies, disc space loss of height and prominent vacuum phenomenon at L4-5. There is posterior L4-5 disc bulging No interval fracture or bone IMPRESSION: Chronic L2 moderately severe compression deformity and vertebroplasty Severe degenerative disc disease and posterior disc bulging at L4-5, increased in severity since 2018 Chronic severe degenerative disc disease at L5-S1 Reviewed, dictated and finalized at [facility]. Reviewed, dictated and finalized at location J. IMPRESSION: Chronic L2 moderately severe compression deformity and vertebropla sty Severe degenerative disc disease and posterior disc bulging at L4-5, increased in severity since 2018 Chronic severe degenerative disc disease at L5-S1
--- NOTE | ~2024-03-14 | CT_ITS ---
EXAMINATION: CT brain wo con DATE: 03/14/2024 15:10 INDICATION: Fall. TECHNIQUE: Computed tomography (CT) of the head was performed without intravenous contrast. The mA wa s adjusted according to patient size. Iterative reconstruction technique was employed. Exam dose: 60 5.33 mGy-cm total exam DLP. COMPARISON: November 29, 2021 CT brain FINDINGS: Prominent left vertebral artery calcification; basilar artery calcification. Bilateral bhatti tid siphon internal carotid artery prominent calcifications. Chronic bilateral basal ganglia lacunar infarcts, not significantly changed since 11/29/2021. There is nonspecific diminished attenuation of the cerebral white matter, likely due to chronic small vessel ischemic changes. No intracranial mass lesion or hemorrhage or recent cerebrovascular accident, midline shift or mass e ffect. No subdural or epidural hematoma. The mastoid air cells and included paranasal sinuses are normally developed and aerated. No fracture or bone destruction of the cranial IMPRESSION: Cerebral atherosclerosis, chronic small vessel ischemic changes of the cerebral white ma tter and chronic bilateral basal ganglia lacunar infarcts No skull fracture or acute intracranial finding or significant change since 11/29/2021 Reviewed, dictated and finalized at [facility]. Reviewed, dictated and finalized at location J. IMPRESSION: Cerebral atherosclerosis, chronic small vessel ischemic changes of the cerebral white matter and chronic bilateral basal ganglia lacunar infarcts No skull fracture or acute intracranial finding or significant change since 11/11
--- NOTE | ~2024-03-14 | XR_ITS ---
XR hip BI 2V w AP pelvis DATE: 03/14/2024 14:50 INDICATION: Ground level fall. Pelvic and hip pain TECHNIQUE: AP pelvis. AP and lateral views of each hip. COMPARISON: 12/02/2023 CT abdomen pelvis FINDINGS: Severe degenerative disc disease at L4-5 and L5-S1. No pelvic fracture or bone destruction is evident. The sacroiliac joints are intact. Chronic slight o ffset at the pubic symphysis, unchanged since 12/02/2023. Hip joint spaces appear symmetric and relatively well preserved. No fracture or dislocation, avascula r necrosis or bone destruction of either hip is noted. IMPRESSION: No pelvic or left or right hip fracture or dislocation Severe degenerative disc disease at L4-5 and L5-S1 Reviewed, dictated and finalized at location J.
--- NOTE | ~2024-03-14 | XR_ITS ---
XR knee RT 3V DATE: 03/14/2024 14:50 INDICATION: Ground-level fall, right knee injury, pain TECHNIQUE: 3 views COMPARISON: 11/22/2023 FINDINGS: Osteopenia. Mild tricompartment osteophytosis. No fracture or dislocation or joint effusion. No periosteal reacti on or bone destruction. No radiopaque intra-articular loose body or chondrocalcinosis. Femoral and popliteal artery calcification. IMPRESSION: Mild tricompartment osteophytosis Osteopenia No fracture, dislocation or joint effusion Reviewed, dictated and finalized at location J.
[2024-03-14 12:30] VITALS: BP 165/70; PULSE 68; RESP 16; TEMP 36.6; O2SAT 98
--- NOTE | 2024-03-14 14:44 | ED.GENADULT ---
HPI - General Adult General Chief complaint: Fall Stated complaint: fall Time Seen by Provider: 03/14/24 13:57 History of Present Illness HPI narrative: Arabella Pike is a 78 y/o female who presents today with reports of having a ground level mechanical fall. She went to adjust the thermostat and tripped on her chair falling on her right side. She states she sort of hit her head on the soft part of her chair - no LOC she was able to get up with help and ambulated with her walker to the stretchers She complains of pain to her right knee/ right hip and lower back. She has a lot of pain to her right shoulder that she relates to a fall she had 2 months ago that she thought would get better but it hasn't and she did not get evaluated after that fall. Related Data Home Medications Medication Instructions Recorded Confirmed acetaminophen 325 mg capsule 325 mg PO Q6H PRN Pain 10/14/19 12/03/23 alprazolam 0.5 mg tablet 1 mg PO TID PRN Anxiety 10/14/19 12/03/23 aspirin 81 mg tablet,delayed 81 mg PO DAILY 10/14/19 12/03/23 release (Adult Low Dose Aspirin) carvedilol 25 mg tablet (Coreg) 25 mg PO BID 10/14/19 12/03/23 donepezil 5 mg tablet 5 mg PO DAILY 10/14/19 12/03/23 furosemide 20 mg tablet 20 mg PO QAM 10/14/19 12/03/23 glucose 4 gram chewable tablet 4 gm PO Q15M PRN Hypoglycemia 10/14/19 12/03/23 (Dex4 Glucose) insulin glargine 100 unit/mL (3 50 unit subcut HS 10/14/19 12/03/23 mL) subcutaneous pen (Lantus Solostar U-100 Insulin) ipratropium 0.5 mg-albuterol 3 mg 3 ml inhalation Q6H PRN Dyspnea 10/14/19 12/03/23 (2.5 mg base)/3 mL nebulization soln methocarbamol 750 mg tablet 750 mg PO TID PRN Muscle Spasm 10/14/19 12/03/23 montelukast 10 mg tablet 10 mg PO HS 10/14/19 12/03/23 multivitamin 1 tablet PO DAILY 10/14/19 12/03/23 nitroglycerin 0.4 mg sublingual 0.4 mg sublingual Q5M PRN Chest 10/14/19 12/03/23 tablet Pain pantoprazole 40 mg tablet,delayed 40 mg PO DAILY 10/14/19 12/03/23 release paroxetine HCl 40 mg tablet 40 mg PO DAILY 10/14/19 12/03/23 sitagliptin phosphate 100 mg 100 mg PO QAM 10/14/19 12/03/23 tablet (Januvia) vitamin B complex (B 1 tablet PO DAILY 10/14/19 12/03/23 Complex-Vitamin B12 tablet) polyethylene glycol 3350 17 17 gm PO BID PRN Constipation 09/18/21 12/03/23 gram/dose oral powder (Miralax) atorvastatin 20 mg tablet 20 mg PO HS 04/23/22 12/03/23 glipizide 10 mg tablet 10 mg PO DAILY 04/23/22 12/03/23 magnesium oxide 400 mg (241.3 mg 400 mg PO DAILY 04/23/22 12/03/23 magnesium) tablet (MagOx) ondansetron 4 mg disintegrating 4 mg PO Q8H PRN Nausea 04/23/22 12/03/23 tablet Allergies Allergy/AdvReac Type Severity Reaction Status Date / Time meperidine AdvReac Mild Diarrhea Verified 12/03/23 11:09 Review of Systems Review of Systems: All systems reviewed & are unremarkable except as noted in HPI and below PMFSH Past Medical History Medical History Anemia Anxiety Arthritis Asthma Asthma-COPD overlap syndrome Cerebrovascular accident Chronic kidney disease, stage 3 Chronic respiratory failure with hypoxia, on home oxygen therapy Colitis Congestive heart failure COPD exacerbation Coronary artery disease Depression Dyslipidemia Gastric ulcer Gastroesophageal reflux disease Hiatal hernia Hypertension Insulin dependent type 2 diabetes mellitus Myocardial infarction Pneumonia Surgical History Surgical History History of appendectomy History of bladder suspension procedure History of cardiac catheterization History of colonoscopy with polypectomy History of coronary artery stent placement History of dilation and curettage History of hysterectomy History of sinus surgery History of tubal ligation Family History Family History Mother Family history of diabetes mellitus in first degree relative Family hi
[2024-03-14] MEDS: CYCLOBENZAPRINE HCL 5 MG TABLET PO (14:51)
[2024-03-14] MEDS: HYDROcodone/acetaminophen (*CRX) 5-325 MG TABLET 1 TAB PO (14:52)
[2024-03-14 15:00] VITALS: BP 166/77; PULSE 68; RESP 20; O2SAT 98
--- NOTE | 2024-03-14 16:06 | PC.NURSE ---
called [facility] to give report. there are no nurses available to take report. called daughter to give update, no answer, left message to return call.
[2024-03-14 16:09] VITALS: BP 164/68; PULSE 71; RESP 18; TEMP 36.6; O2SAT 99
== END 2024-03-14 18:38 ==
PROVIDERS: Emergency Provider Nurse Practitioner Family; PCP Nurse Practitioner Family
DX: S49.91XA Unspecified injury of right shoulder and upper arm, initial encounter (principal); S79.911A Unspecified injury of right hip, initial encounter; S89.91XA Unspecified injury of right lower leg, initial encounter; S39.92XA Unspecified injury of lower back, initial encounter; M19.011 Primary osteoarthritis, right shoulder; M17.11 Unilateral primary osteoarthritis, right knee; M85.861 Other specified disorders of bone density and structure, right lower leg; M51.37 Other intervertebral disc degeneration, lumbosacral region; M51.36 Other intervertebral disc degeneration, lumbar region; E11.22 Type 2 diabetes mellitus with diabetic chronic kidney disease; I13.0 Hypertensive heart and chronic kidney disease with heart failure and stage 1 through stage 4 chronic kidney disease, or unspecified chronic kidney disease; N18.30 Chronic kidney disease, stage 3 unspecified; I50.9 Heart failure, unspecified; J44.9 Chronic obstructive pulmonary disease, unspecified; J96.11 Chronic respiratory failure with hypoxia; Z99.81 Dependence on supplemental oxygen; I25.10 Atherosclerotic heart disease of native coronary artery without angina pectoris; E78.5 Hyperlipidemia, unspecified; K44.9 Diaphragmatic hernia without obstruction or gangrene; K21.9 Gastro-esophageal reflux disease without esophagitis; F41.9 Anxiety disorder, unspecified; F32.A Depression, unspecified; Z87.01 Personal history of pneumonia (recurrent); Z86.2 Personal history of diseases of the blood and blood-forming organs and certain disorders involving the immune mechanism; Z86.73 Personal history of transient ischemic attack (TIA), and cerebral infarction without residual deficits; Z86.010 Personal history of colon polyps; Z95.5 Presence of coronary angioplasty implant and graft; Z90.710 Acquired absence of both cervix and uterus; Z77.22 Contact with and (suspected) exposure to environmental tobacco smoke (acute) (chronic); Z79.899 Other long term (current) drug therapy; Z79.82 Long term (current) use of aspirin; Z79.84 Long term (current) use of oral hypoglycemic drugs; Z79.4 Long term (current) use of insulin; W01.190A Fall on same level from slipping, tripping and stumbling with subsequent striking against furniture, initial encounter
CPT/HCPCS: 70450; 71046; 72131; 73030; 73521; 73562; 99284; A9270

== ENCOUNTER 2024-07-02 10:14 | Inpatient (IN) | payer MEDICARE, MEDICAID, SELFPAY ==
[2024-07-02] VITALS (20 sets, daily range): BP systolic 121–163; BP diastolic 58–96; PULSE 68–94; RESP 16–28; TEMP 36.3–36.6; O2SAT 92–100; BMI 31.1
--- NOTE | ~2024-07-02 | XR_ITS ---
XR chest 1V portable DATE: 07/04/2024 09:30 INDICATION: Leukocytosis TECHNIQUE: Portable upright AP chest on 07/04/2024 at 0926 hours COMPARISON: 07/02/2024 AP and lateral chest FINDINGS: Normal heart size. Aortic arch calcification, mild thoracic aortic unfolding. No hilar or m ediastinal enlargement. There is slight atelectasis at the lung bases. Lungs otherwise appear clear. Status post vertebroplasty at compression fracture deformity of T10. Osteopenia. IMPRESSION: Slight atelectasis at the lung bases Reviewed, dictated and finalized at location A. CUTTER
--- NOTE | ~2024-07-02 | XR_ITS ---
EXAMINATION: XR chest 2V DATE: 07/02/2024 13:48 INDICATION: Shortness of breath TECHNIQUE: frontal and lateral views of the chest were obtained. COMPARISON: Chest radiograph dated 03/14/24 FINDINGS: Mild eventration along both the left and right sides of the diaphragm. No focal airspace opacities, p ulmonary edema, pleural effusion or pneumothorax. Heart size normal. Coronary artery stenting. Additi onal postoperative changes in the epigastric region. Chronic T10 and L1-2 compression fractures with change of prior vertebroplasty IMPRESSION: 1. No acute cardiopulmonary disease. Reviewed, dictated and finalized at location B. GRATION DIRECTOR
--- NOTE | ~2024-07-02 | XR_ITS ---
EXAMINATION: XR chest 1V portable DATE: 07/07/2024 08:39 INDICATION: Shortness of breath. TECHNIQUE: A single frontal view of the chest was obtained. COMPARISON: Chest single view 07/04/2024, CT abdomen and pelvis 12/02/2023 FINDINGS: There is no pneumonia, pleural effusion, or pneumothorax. The heart size is normal. There i s a prominent left pericardial fat pad. There are changes of vertebroplasty at one thoracic level. IMPRESSION: 1. No acute cardiopulmonary disease. Reviewed, dictated and finalized at location A. HER WARP
--- NOTE | ~2024-07-02 | CT_ITS ---
EXAMINATION: CT brain wo con DATE: 07/03/2024 08:52 INDICATION: Change in mental status TECHNIQUE: Computed tomography (CT) of the head was performed without intravenous contrast. Sagittal and coronal reconstructions were performed. The mA was adjusted according to patient size. Iterative reconstruction technique was employed. The dose-length product was 605.33 mGy-cm. COMPARISON: 03/14/2024 FINDINGS: Old lacunar infarcts at the bilateral basal ganglia involving the hooks radiata and the extending al so include the right caudate nucleus. Additional small old lacunar infarcts involving the white matte r of the right frontoparietal centrum semiovale and at the posterior left thalamus. No acute intracra nial hemorrhage, acute infarction or abnormal extra axial fluid collection. There is moderate scatter ed white matter hypoattenuation consistent with chronic small vessel ischemic disease. Symmetric prom inence of the sulci and ventricles consistent with mild to moderate age-appropriate diffuse cerebral volume loss. There is a cavum septum vergae cyst measuring up to 2.2 cm in maximal transverse diamete r with thin, convex outwardly bulging margins, unchanged since 04/27/2015. No solid masses. Changes of bilateral intraocular lens replacement. Chronic blowout fracture of the medial wall of the left orbi t. There are also old bilateral nasal bone fractures and prominent rightward bowing of the nasal sept um. Mild mucosal thickening in the paranasal sinuses. The mastoid air cells and middle ear cavities a re normal. IMPRESSION: 1. A few small old lacunar infarcts in the bilateral basal ganglia, left thalamus and right frontopar ietal centrum semiovale. No acute intracranial process. 2. Age related changes including mild to moderate diffuse volume loss and moderate scattered white ma tter hypoattenuation consistent with chronic small vessel ischemic disease. Reviewed, dictated and finalized at location B. CARE LIAISON IMPRESSION: 1. A few small old lacunar infarcts in the bilateral basal ganglia, left thalam us and right frontoparietal centrum semiovale. No acute intracranial process. 2. Age related changes including mild to moderate diffuse volume loss and moder ate scattered white matter hypoattenuation consistent with chronic small vessel ischemic disease.
--- NOTE | 2024-07-02 12:29 | ECG_ITS ---
Test Date: 2024-07-02 13:35:52 Measurements Intervals Adams Rate: 72 P: 50 TN: 190 QRS: 3 QRSD: 88 T: 63 QT: 415 QTc: 455 Interpretive Statements SINUS RHYTHM CONSIDER INFERIOR INFARCT, AGE INDETERMINATE BASELINE ARTIFACT- I, II, III ABNORMAL ECG Compared to ECG 01/13/2024 09:49:57 No significant changes Electronically Signed On 07-02-2024 13:52:37 FIELD MANAGER by Sd Conn D.O.
--- NOTE | 2024-07-02 12:31 | ED_ITS ---
HPI - SOB/Dyspnea General Chief Complaint: Weakness <Magdasahara Marin APRN - Last Filed: 07/02/24 12:36> Stated Complaint: sick case <Magda Marin APRN - Last Filed: 07/02/24 12:36> Time Seen by Provider: 07/02/24 12:20 <Magda Marin APRN - Last Filed: 07/02/24 12:36> Focused HPI: Patient is a 78-year-old female who presents to the ER with cough and shortness of breath x 1 week. She reports she has not had a fever, but woke up with sweats this morning. Patient reports she has a histor y of asthma, diabetes, and pneumonia. She also endorses lower abdominal pain in bilateral quadrants. Patient denies upper abdominal pain, acute back pain, or lower extremity swelling. GENERAL: Ill-appearing, well-nourished, and in mild respiratory distress. HEAD: Normocephalic, atraumatic. CHEST: Tachypnea, coarse breath sounds all lobes, audible wheezing HEART: Regular rate and rhythm.? NEURO: ?Alert and oriented x3. Patient screened in triage and initial orders placed.? ?Additional care and disposition to be based upon?diagnostic testing and treatment. <Magda Marin APRN - Last Filed: 07/02/24 12:36> Focused HPI: Patient is a 78-year-old female who presents to the ER with cough and shortness of breath x 1 week. She reports she has not had a fever, but woke up with sweats this morning. Patient reports she has a history of asthma, diabetes, and pneumonia. Patient denies abdominal pain, acute back pain, or lower extremity swelling. GENERAL: Ill-appearing, well-nourished, and in mild respiratory distress. HEAD: Normocephalic, atraumatic. CHEST: Tachypnea, coarse breath sounds all lobes, audible wheezing HEART: Regular rate and rhythm.? NEURO: ?Alert and oriented x3. Patient screened in triage and initial orders placed.? ?Additional care and disposition to be based upon?diagnostic testing and treatment. <Ashely Pickard MD - Last Filed: 07/05/24 10:06> History of Present Illness HPI Narrative: 78-year-old female presenting with shortness of breath, cough, generalized weakness. States that this seems to happen every year around this time. Has a history of COPD and asthma. States that her chest feels tight. Has been using her inhaler nebulizer with temporary improvement. Complains of productive cough of ?green stuff?. <Ashely Pickard MD - Last Filed: 07/05/24 10:06> Related Data Home Medications: Home Medications Medication Instructions Recorded Confirmed acetaminophen 325 mg capsule 650 mg PO Q6H PRN Pain (Scale 10/14/19 07/02/24 Score 1-3) alprazolam 0.5 mg tablet 0.75 mg PO HS 10/14/19 07/02/24 aspirin 81 mg tablet,delayed 81 mg PO DAILY 10/14/19 07/02/24 release (Adult Low Dose Aspirin) carvedilol 25 mg tablet (Coreg) 25 mg PO BID 10/14/19 07/02/24 donepezil 5 mg tablet 10 mg PO DAILY 10/14/19 07/02/24 furosemide 20 mg tablet 20 mg PO QAM 10/14/19 07/02/24 glucose 4 gram chewable tablet 4 gm PO Q15M PRN Hypoglycemia 10/14/19 07/02/24 (Dex4 Glucose) insulin glargine 100 unit/mL (3 50 unit subcut HS 10/14/19 07/02/24 mL) subcutaneous pen (Lantus Solostar U-100 Insulin) ipratropium 0.5 mg-albuterol 3 mg 3 ml inhalation Q6H PRN Dyspnea 10/14/1907/02 (2.5 mg base)/3 mL nebulization soln methocarbamol 750 mg tablet 750 mg PO TID PRN Muscle Spasm 10/14/19 07/02/24 montelukast 10 mg tablet 10 mg PO HS 10/14/19 07/02/24 multivitamin 1 tablet PO DAILY 10/14/19 07/02/24 pantoprazole 40 mg tablet,delayed 40 mg PO DAILY 10/14/19 07/02/24 release paroxetine HCl 40 mg tablet 60 mg PO DAILY 10/14/19 07/02/24 sitagliptin phosphate 100 mg 100 mg PO QAM 10/14/19 07/02/24 tablet (Januvia) vitamin B complex (B 1 tablet PO DAILY 10/14/19 07/02/24 Complex-Vitamin B12 tablet) polyethylene glycol 3350 17 17 gm PO BID PRN Constipation 09/18/21 07/02/24 gram/dose oral powder (Miralax) atorvastatin 20 mg tablet 20 mg PO HS 04/23/22 07/02/24 glipizide 10 mg tablet 10 mg PO DAILY 04/23/22 07/02/24 Robitussin DM Max 10 ml PO Q4H PRN Cough 07/02/24 07/02/24 acetaminophen 500 mg capsule 500 mg PO QID PRN Pain (Scale 07/02/24 07/02/24 Score 4-6) alprazolam 0.5 mg tablet 1 mg PO BID 07/02/24 07/02/24 biotin 2,500 mcg PO DAILY 07/02/24 07/02/24 buspirone 10 mg tablet 20 mg PO TID 07/02/24 07/02/24 multivitamin (Daily-[place] tablet) 1 tablet PO DAILY 07/02/24 07/02/24 tramadol 50 mg tablet 50 mg PO Q6H PRN Pain (Scale Score 07/02/24 07/02/24 4-6) <Magda Marin APRN - Last Filed: 07/02/24 12:36> Allergies/Adverse Reactions: Allergies Allergy/AdvReac Type Severity Reaction Status Date / Time meperidine AdvReac Mild Diarrhea Verified 12/03/23 11:09 <Magda Marin APRN - Last Filed: 07/02/24 12:36> Review of Systems Review of Systems: All systems reviewed & are unremarkable except as noted in HPI and below <Ashely Pickard MD - Last Filed: 07/05/24 10:06> [facility] Past Medical History Medical History: Medical History (Updated 07/05/24 @ 07:27 by Reina Galeas APRN) Anemia Anxiety Arthritis Asthma Asthma-COPD overlap syndrome Cerebrovascular accident Chronic kidney disease, stage 3 Chronic respiratory failure with hypoxia, on home oxygen therapy Colitis Congestive heart failure COPD exacerbation Coronary artery disease Depression Dyslipidemia Gastric ulcer Gastroesophageal reflux disease Hiatal hernia Hypertension Insulin dependent type 2 diabetes mellitus Myocardial infarction Pneumonia <Magda Marin APRN - Last Filed: 07/02/24 12:36> Surgical History Surgical History: Surgical History History of appendectomy History of bladder suspension procedure History of cardiac catheterization History of colonoscopy with polypectomy History of coronary artery stent placement History of dilation and curettage History of hysterectomy History of sinus surgery History of tubal ligation <Magda Marin, CLINICAL PSYCHOLOGIST - Last Filed: 07/02/24 12:36> Family History Family History: Family History Mother Family history of diabetes mellitus in first degree relative Family history of primary malignant neoplasm of liver Family history of heart disease in male family member before age 55 Family history of hearing loss Family history of liver disease Diabetes mellitus Cerebrovascular accident Family history of pancreatic cancer Hypertension Father Family history of emphysema Sibling Diabetes mellitus Other Depression Family history of alcoholism Family history of allergic disorder Family history of arthritis Family history of cardiovascular disease Family history of coronary artery disease Family history of malignant neoplasm Family history of mental disorder Family history of osteoporosis <Magda Marin, CLINICAL PSYCHOLOGIST - Last Filed: 07/02/24 12:36> Social History Social History: Social History Social History: Healthcare power of senior trial attorney: Alistair Martínez. Code status: Full code. Smoking status: Never smoker Second hand tobacco smoke exposure: Yes Alcohol intake: never Alcohol use details: History of alcohol abuse, none since 2014. Substance use: never Do You Feel Safe in your Home?: Yes Lack of Transportation: No Lack of Food: Never True Current Housing: I Have Housing Concerned About Future Housing: No Difficulty Paying Gas/Electric Bills: No Difficulty Paying for Meds: No Currently Unemployed: No Education: High School Diploma/GED Difficulty w/ Childcare or Family Care: No Living arrangements: assisted living Additional living arrangements comments: Assisted living at [facility]. Occupation/Education: retired Gender identity (if verbalized by the patient): Female Spiritual care concerns: No <Magda Marin, CLINICAL PSYCHOLOGIST - Last Filed: 07/02/24 12:36> Exam Narrative: GENERAL: Chronically ill-appearing, no acute distress, pleasant cooperative HEAD: Normocephalic, atraumatic. EYES: PERRLA and EOMI. ENT: Mucous membranes moist. NECK: Supple. CHEST: + significant wheezing bilaterally HEART: Regular rate and rhythm ABDOMEN: Soft, nontender, nondistended EXTREMITIES: Normal range of motion. No edema. SKIN: Warm, dry, no rash. NEURO: No focal deficits. Alert and oriented x3. PSYCH: Normal mood and affect. <Ashely Pickard MD - Last Filed: 07/05/24 10:06> Course Vital Signs Vital signs: Vital Signs Temperature 97.3 F L 07/02/24 10:22 Pulse Rate 77 07/02/24 10:22 Respiratory Rate 20 07/02/24 10:22 Blood Pressure 129/67 07/02/24 10:22 Pulse Oximetry 93 07/02/24 10:22 Temperature 97.5 F L 07/05/24 06:00 Pulse Rate 66 07/05/24 08:27 Respiratory Rate 20 07/05/24 07:58 Blood Pressure 153/67 H 07/05/24 06:00 Pulse Oximetry 97 07/05/24 07:43 Oxygen Delivery Nasal Cannula 07/05/24 07:43 Oxygen Flow Rate 2 07/05/24 07:43 Fraction of Inspired Oxygen 28 07/05/24 07:43 <Magda Marin APRN - Last Filed: 07/02/24 12:36> Vital Signs Temperature 97.3 F L 07/02/24 10:22 Pulse Rate 77 07/02/24 10:22 Respiratory Rate 20 07/02/24 10:22 Blood Pressure 129/67 07/02/24 10:22 Pulse Oximetry 93 07/02/24 10:22 Temperature 97.5 F L 07/05/24 06:00 Pulse Rate 66 07/05/24 08:27 Respiratory Rate 20 07/05/24 07:58 Blood Pressure 153/67 H 07/05/24 06:00 Pulse Oximetry 97 07/05/24 07:43 Oxygen Delivery Nasal Cannula 07/05/24 07:43 Oxygen Flow Rate 2 07/05/24 07:43 Fraction of Inspired Oxygen 28 07/05/24 07:43 <Ashely Pickard MD - Last Filed: 07/05/24 10:06> MDM - SOB/Dyspnea MDM Narrative Medical decision making narrative: 78-year-old female presenting with productive cough and shortness of breath. Vitals within normal limits. Exam remarkable for the above. She does have significant wheezing bilaterally. EKG per my interpretation shows normal s inus rhythm, no ST elevations or depressions. Similar to prior. Breathing treatments, Solu-Medrol, fluids have been ordered. Blood work was stable CKD. Troponin undetectable. UA is concerning for UTI. Patient given 2 breathing treatments and continues to be very wheezy on exam. Feel she would benefit from admission for further management. She is agreeable with this plan. I spoke with the hospitalist who has accepted her for admission. <Ashely Pickard MD - Last Filed: 07/05/24 10:06> Differential Diagnosis Differential diagnosis: Likely acute exacerbation of chronic obstructive airways disease, congestive heart failure, community acquired pneumonia and asthma with exacerba tion <Ashely Pickard MD - Last Filed: 07/05/24 10:06> Medical Records Attestation: I reviewed the patient's medical records. <Ashely Pickard MD - Last Filed: 07/05/24 10:06> Lab Data Attestation: I reviewed the patient's lab results. <Ashely Pickard MD - Last Filed: 07/05/24 10:06> Result diagrams: 07/05/24 08:02 07/05/24 08:02 <Magda Marin APRN - Last Filed: 07/02/24 12:36> Labs: Lab Results 07/02/24 07/02/24 07/02/24 Range/Units 13:19 14:22 14:43 WBC 10.0 (4.5-10.0) K/mm3 RBC 4.23 (4.2-5.4) M/mm3 Hgb 12.2 (12.0-15.0) g/dL Hct 36.8 L (37.0-47.0) % MCV 87.0 (80-100) fl MCH 28.8 (26-34) pg MCHC 33.2 (32-36) g/dl RDW 13.8 (11.5-14.5) % Plt Count 247 (150-375) k/mm3 MPV 10.5 H (7.4-10.4) fl Immature Gran % (Auto) 0.3 (0-0.5) % Neut % (Auto) 66.5 (45.5-73.1) % Lymph % (Auto) 22.1 (18.3-44.2) % [place] % (Auto) 9.7 H (2.6-8.5) % Eos % (Auto) 1.1 (0-4.4) % Baso % (Auto) 0.3 (0.2-1.2) % Lymph # (Auto) 2.20 (0.9-3.2) K/mm3 [place] # (Auto) 1.0 H (0.1-0.6) K/mm3 Eos # (Auto) 0.1 (0-0.3) K/mm3 Baso # (Auto) 0.0 (0.0-0.1) K/mm3 Abs Immat Gran (auto) 0.03 (0.00-0.031) K/mm3 Absolute Neuts (auto) 6.6 (1.3-6.7) K/mm3 Absolute Nucleated RBC 0.000 (0.0-0.012) K/mm3 Nucleated RBC % 0.0 (0.0-0.2) % PT 15.6 H (11.1-14.7) Seconds INR 1.2 APTT 32.6 (22.3-36.8) Seconds Sodium 132 L (137-145) mmol/L Potassium 3.9 (3.4-5.0) mmol/L Chloride 93 L (98-107) mmol/L Carbon Dioxide 31 H (22-30) mmol/L Anion Gap 8 (4-12) mmol/L BUN 29 H D (7-17) mg/dL Creatinine 1.50 H (0.7-1.0) mg/dL Estim Creat Clear Calc 28 ml/min Estimated GFR 34 L (59 - ) Glucose 324 H (65-110) mg/dL POC Capillary Glucose (65-105) mg/dl Hemoglobin A1c (<5.7) % Lactic Acid 1.6 (0.7-2.0) mmol/L Calcium 9.0 (8.4-10.2) mg/dL Total Bilirubin 0.7 (0.2-1.3) mg/dL AST 34 (14-36) U/L ALT 21 (6-35) U/L Alkaline Phosphatase 101 (38-126) U/L Troponin I < 0.012 (0.000-0.034) ng/mL NT-Pro-B Natriuret Pep 153 H (19.9-100) pg/mL Total Protein 7.0 (6.3-8.2) g/dL Albumin 4.1 (3.5-5.1) g/dL Urine Color Yellow (Yellow) Urine Appearance Clear (Clear) Urine pH 5.0 (5.0-9.0) Ur Specific [place] 1.017 (1.001-1.035) Urine Protein Negative (Negative) mg/dL Urine Glucose (UA) Negative (Negative) mg/dL Urine Ketones Negative (Negative) mg/dL Ur Blood (Man) Negative (Negative) Urine Nitrate Negative (Negative) Urine Bilirubin Negative (Negative) Urine Urobilinogen 0.2 (<2.0) mg/dL Add Ur Microanalysis Reviewed Leukocyte Esterase Rfl 2+ H (Negative) TENA/UL Urine RBC 3-5 H (0-2) /hpf Urine WBC 11-20 H (0-3) /hpf Ur Squamous Epith Cells None seen (Few) /hpf Urine Bacteria None seen /hpf Urine Casts >20 Hyaline Casts Present (None) /lpf Influenza A (RT-PCR) Negative (Negative) Influenza B (RT-PCR) Negative (Negative) RSV (RT-PCR) Negative (Negative) SARS-CoV-2 RNA (RT-PCR) Negative (Negative) 07/02/24 07/02/24 07/03/24 Range/Units 16:57 21:56 00:41 WBC (4.5-10.0) K/mm3 RBC (4.2-5.4) M/mm3 Hgb (12.0-15.0) g/dL Hct (37.0-47.0) % MCV (80-100) fl MCH (26-34) pg MCHC (32-36) g/dl RDW (11.5-14.5) % Plt Count (150-375) k/mm3 MPV (7.4-10.4) fl Immature Gran % (Auto) (0-0.5) % Neut % (Auto) (45.5-73.1) % Lymph % (Auto) (18.3-44.2) % [place] % (Auto) (2.6-8.5) % Eos % (Auto) (0-4.4) % Baso % (Auto) (0.2-1.2) % Lymph # (Auto) (0.9-3.2) K/mm3 [place] # (Auto) (0.1-0.6) K/mm3 Eos # (Auto) (0-0.3) K/mm3 Baso # (Auto) (0.0-0.1) K/mm3 Abs Immat Gran (auto) (0.00-0.031) K/mm3 Absolute Neuts (auto) (1.3-6.7) K/mm3 Absolute Nucleated RBC (0.0-0.012) K/mm3 Nucleated RBC % (0.0-0.2) % PT (11.1-14.7) Seconds INR APTT (22.3-36.8) Seconds Sodium (137-145) mmol/L Potassium (3.4-5.0) mmol/L Chloride (98-107) mmol/L Carbon Dioxide (22-30) mmol/L Anion Gap (4-12) mmol/L BUN (7-17) mg/dL Creatinine (0.7-1.0) mg/dL Estim Creat Clear Calc ml/min Estimated GFR (59 - ) Glucose (65-110) mg/dL POC Capillary Glucose 433 H > 500 H* (65-105) mg/dl Hemoglobin A1c (<5.7) % Lactic Acid (0.7-2.0) mmol/L Calcium (8.4-10.2) mg/dL Total Bilirubin (0.2-1.3) mg/dL AST (14-36) U/L ALT (6-35) U/L Alkaline Phosphatase (38-126) U/L Troponin I < 0.012 (0.000-0.034) ng/mL NT-Pro-B Natriuret Pep (19.9-100) pg/mL Total Protein (6.3-8.2) g/dL Albumin (3.5-5.1) g/dL Urine Color (Yellow) Urine Appearance (Clear) Urine pH (5.0-9.0) Ur Specific [place] (1.001-1.035) Urine Protein (Negative) mg/dL Urine Glucose (UA) (Negative) mg/dL Urine Ketones (Negative) mg/dL Ur Blood (Man) (Negative) Urine Nitrate (Negative) Urine Bilirubin (Negative) Urine Urobilinogen (<2.0) mg/dL Add Ur Microanalysis Leukocyte Esterase Rfl (Negative) TENA/UL Urine RBC (0-2) /hpf Urine WBC (0-3) /hpf Ur Squamous Epith Cells (Few) /hpf Urine Bacteria /hpf Urine Casts Hyaline Casts (None) /lpf Influenza A (RT-PCR) (Negative) Influenza B (RT-PCR) (Negative) RSV (RT-PCR) (Negative) SARS-CoV-2 RNA (RT-PCR) (Negative) 07/03/24 07/03/24 07/03/24 Range/Units 01:41 04:10 05:54 WBC (4.5-10.0) K/mm3 RBC (4.2-5.4) M/mm3 Hgb (12.0-15.0) g/dL Hct (37.0-47.0) % MCV (80-100) fl MCH (26-34) pg MCHC (32-36) g/dl RDW (11.5-14.5) % Plt Count (150-375) k/mm3 MPV (7.4-10.4) fl Immature Gran % (Auto) (0-0.5) % Neut % (Auto) (45.5-73.1) % Lymph % (Auto) (18.3-44.2) % [place] % (Auto) (2.6-8.5) % Eos % (Auto) (0-4.4) % Baso % (Auto) (0.2-1.2) % Lymph # (Auto) (0.9-3.2) K/mm3 [place] # (Auto) (0.1-0.6) K/mm3 Eos # (Auto) (0-0.3) K/mm3 Baso # (Auto) (0.0-0.1) K/mm3 Abs Immat Gran (auto) (0.00-0.031) K/mm3 Absolute Neuts (auto) (1.3-6.7) K/mm3 Absolute Nucleated RBC (0.0-0.012) K/mm3 Nucleated RBC % (0.0-0.2) % PT (11.1-14.7) Seconds INR APTT (22.3-36.8) Seconds Sodium (137-145) mmol/L Potassium (3.4-5.0) mmol/L Chloride (98-107) mmol/L Carbon Dioxide (22-30) mmol/L Anion Gap (4-12) mmol/L BUN (7-17) mg/dL Creatinine (0.7-1.0) mg/dL Estim Creat Clear Calc ml/min Estimated GFR (59 - ) Glucose 479 H (65-110) mg/dL POC Capillary Glucose 391 H 350 H (65-105) mg/dl Hemoglobin A1c (<5.7) % Lactic Acid (0.7-2.0) mmol/L Calcium (8.4-10.2) mg/dL Total Bilirubin (0.2-1.3) mg/dL AST (14-36) U/L ALT (6-35) U/L Alkaline Phosphatase (38-126) U/L Troponin I (0.000-0.034) ng/mL NT-Pro-B Natriuret Pep (19.9-100) pg/mL Total Protein (6.3-8.2) g/dL Albumin (3.5-5.1) g/dL Urine Color (Yellow) Urine Appearance (Clear) Urine pH (5.0-9.0) Ur Specific [place] (1.001-1.035) Urine Protein (Negative) mg/dL Urine Glucose (UA) (Negative) mg/dL Urine Ketones (Negative) mg/dL Ur Blood (Man) (Negative) Urine Nitrate (Negative) Urine Bilirubin (Negative) Urine Urobilinogen (<2.0) mg/dL Add Ur Microanalysis Leukocyte Esterase Rfl (Negative) TENA/UL Urine RBC (0-2) /hpf Urine WBC (0-3) /hpf Ur Squamous Epith Cells (Few) /hpf Urine Bacteria /hpf Urine Casts Hyaline Casts (None) /lpf Influenza A (RT-PCR) (Negative) Influenza B (RT-PCR) (Negative) RSV (RT-PCR) (Negative) SARS-CoV-2 RNA (RT-PCR) (Negative) 07/03/24 07/03/24 07/03/24 Range/Units 08:32 09:20 11:58 WBC 15.0 H (4.5-10.0) K/mm3 RBC 4.15 L (4.2-5.4) M/mm3 Hgb 11.8 L (12.0-15.0) g/dL Hct 35.7 L (37.0-47.0) % MCV 86.0 (80-100) fl MCH 28.4 (26-34) pg MCHC 33.1 (32-36) g/dl RDW 13.6 (11.5-14.5) % Plt Count 262 (150-375) k/mm3 MPV 10.7 H (7.4-10.4) fl Immature Gran % (Auto) (0-0.5) % Neut % (Auto) (45.5-73.1) % Lymph % (Auto) (18.3-44.2) % [place] % (Auto) (2.6-8.5) % Eos % (Auto) (0-4.4) % Baso % (Auto) (0.2-1.2) % Lymph # (Auto) (0.9-3.2) K/mm3 [place] # (Auto) (0.1-0.6) K/mm3 Eos # (Auto) (0-0.3) K/mm3 Baso # (Auto) (0.0-0.1) K/mm3 Abs Immat Gran (auto) (0.00-0.031) K/mm3 Absolute Neuts (auto) (1.3-6.7) K/mm3 Absolute Nucleated RBC (0.0-0.012) K/mm3 Nucleated RBC % (0.0-0.2) % PT (11.1-14.7) Seconds INR APTT (22.3-36.8) Seconds Sodium 135 L (137-145) mmol/L Potassium 3.6 (3.4-5.0) mmol/L Chloride 100 (98-107) mmol/L Carbon Dioxide 21 L (22-30) mmol/L Anion Gap 14 H (4-12) mmol/L BUN 27 H (7-17) mg/dL Creatinine 1.20 H (0.7-1.0) mg/dL Estim Creat Clear Calc 35 ml/min Estimated GFR 44 L (59 - ) Glucose 277 H (65-110) mg/dL POC Capillary Glucose 311 H 181 H (65-105) mg/dl Hemoglobin A1c (<5.7) % Lactic Acid (0.7-2.0) mmol/L Calcium 9.0 (8.4-10.2) mg/dL Total Bilirubin 0.4 (0.2-1.3) mg/dL AST 25 (14-36) U/L ALT 23 (6-35) U/L Alkaline Phosphatase 96 (38-126) U/L Troponin I (0.000-0.034) ng/mL NT-Pro-B Natriuret Pep (19.9-100) pg/mL Total Protein 8.0 (6.3-8.2) g/dL Albumin 4.2 (3.5-5.1) g/dL Urine Color (Yellow) Urine Appearance (Clear) Urine pH (5.0-9.0) Ur Specific [place] (1.001-1.035) Urine Protein (Negative) mg/dL Urine Glucose (UA) (Negative) mg/dL Urine Ketones (Negative) mg/dL Ur Blood (Man) (Negative) Urine Nitrate (Negative) Urine Bilirubin (Negative) Urine Urobilinogen (<2.0) mg/dL Add Ur Microanalysis Leukocyte Esterase Rfl (Negative) TENA/UL Urine RBC (0-2) /hpf Urine WBC (0-3) /hpf Ur Squamous Epith Cells (Few) /hpf Urine Bacteria /hpf Urine Casts Hyaline Casts (None) /lpf Influenza A (RT-PCR) (Negative) Influenza B (RT-PCR) (Negative) RSV (RT-PCR) (Negative) SARS-CoV-2 RNA (RT-PCR) (Negative) 07/03/24 07/03/24 Range/Units 12:15 16:56 WBC (4.5-10.0) K/mm3 RBC (4.2-5.4) M/mm3 Hgb (12.0-15.0) g/dL Hct (37.0-47.0) % MCV (80-100) fl MCH (26-34) pg MCHC (32-36) g/dl RDW (11.5-14.5) % Plt Count (150-375) k/mm3 MPV (7.4-10.4) fl Immature Gran % (Auto) (0-0.5) % Neut % (Auto) (45.5-73.1) % Lymph % (Auto) (18.3-44.2) % [place] % (Auto) (2.6-8.5) % Eos % (Auto) (0-4.4) % Baso % (Auto) (0.2-1.2) % Lymph # (Auto) (0.9-3.2) K/mm3 [place] # (Auto) (0.1-0.6) K/mm3 Eos # (Auto) (0-0.3) K/mm3 Baso # (Auto) (0.0-0.1) K/mm3 Abs Immat Gran (auto) (0.00-0.031) K/mm3 Absolute Neuts (auto) (1.3-6.7) K/mm3 Absolute Nucleated RBC (0.0-0.012) K/mm3 Nucleated RBC % (0.0-0.2) % PT (11.1-14.7) Seconds INR APTT (22.3-36.8) Seconds Sodium (137-145) mmol/L Potassium (3.4-5.0) mmol/L Chloride (98-107) mmol/L Carbon Dioxide (22-30) mmol/L Anion Gap (4-12) mmol/L BUN (7-17) mg/dL Creatinine (0.7-1.0) mg/dL Estim Creat Clear Calc ml/min Estimated GFR (59 - ) Glucose (65-110) mg/dL POC Capillary Glucose 267 H (65-105) mg/dl Hemoglobin A1c 7.8 H (<5.7) % Lactic Acid (0.7-2.0) mmol/L Calcium (8.4-10.2) mg/dL Total Bilirubin (0.2-1.3) mg/dL AST (14-36) U/L ALT (6-35) U/L Alkaline Phosphatase (38-126) U/L Troponin I (0.000-0.034) ng/mL NT-Pro-B Natriuret Pep (19.9-100) pg/mL Total Protein (6.3-8.2) g/dL Albumin (3.5-5.1) g/dL Urine Color (Yellow) Urine Appearance (Clear) Urine pH (5.0-9.0) Ur Specific [place] (1.001-1.035) Urine Protein (Negative) mg/dL Urine Glucose (UA) (Negative) mg/dL Urine Ketones (Negative) mg/dL Ur Blood (Man) (Negative) Urine Nitrate (Negative) Urine Bilirubin (Negative) Urine Urobilinogen (<2.0) mg/dL Add Ur Microanalysis Leukocyte Esterase Rfl (Negative) TENA/UL Urine RBC (0-2) /hpf Urine WBC (0-3) /hpf Ur Squamous Epith Cells (Few) /hpf Urine Bacteria /hpf Urine Casts Hyaline Casts (None) /lpf Influenza A (RT-PCR) (Negative) Influenza B (RT-PCR) (Negative) RSV (RT-PCR) (Negative) SARS-CoV-2 RNA (RT-PCR) (Negative) <Magda Marin, CLINICAL PSYCHOLOGIST - Last Filed: 07/02/24 12:36> Lab Results 07/02/24 07/02/24 07/02/24 Range/Units 13:19 14:22 14:43 WBC 10.0 (4.5-10.0) K/mm3 RBC 4.23 (4.2-5.4) M/mm3 Hgb 12.2 (12.0-15.0) g/dL Hct 36.8 L (37.0-47.0) % MCV 87.0 (80-100) fl MCH 28.8 (26-34) pg MCHC 33.2 (32-36) g/dl RDW 13.8 (11.5-14.5) % Plt Count 247 (150-375) k/mm3 MPV 10.5 H (7.4-10.4) fl Immature Gran % (Auto) 0.3 (0-0.5) % Neut % (Auto) 66.5 (45.5-73.1) % Lymph % (Auto) 22.1 (18.3-44.2) % [place] % (Auto) 9.7 H (2.6-8.5) % Eos % (Auto) 1.1 (0-4.4) % Baso % (Auto) 0.3 (0.2-1.2) % Lymph # (Auto) 2.20 (0.9-3.2) K/mm3 [place] # (Auto) 1.0 H (0.1-0.6) K/mm3 Eos # (Auto) 0.1 (0-0.3) K/mm3 Baso # (Auto) 0.0 (0.0-0.1) K/mm3 Abs Immat Gran (auto) 0.03 (0.00-0.031) K/mm3 Absolute Neuts (auto) 6.6 (1.3-6.7) K/mm3 Absolute Nucleated RBC 0.000 (0.0-0.012) K/mm3 Nucleated RBC % 0.0 (0.0-0.2) % PT 15.6 H (11.1-14.7) Seconds INR 1.2 APTT 32.6 (22.3-36.8) Seconds Sodium 132 L (137-145) mmol/L Potassium 3.9 (3.4-5.0) mmol/L Chloride 93 L (98-107) mmol/L Carbon Dioxide 31 H (22-30) mmol/L Anion Gap 8 (4-12) mmol/L BUN 29 H D (7-17) mg/dL Creatinine 1.50 H (0.7-1.0) mg/dL Estim Creat Clear Calc 28 ml/min Estimated GFR 34 L (59 - ) Glucose 324 H (65-110) mg/dL POC Capillary Glucose (65-105) mg/dl Hemoglobin A1c (<5.7) % Lactic Acid 1.6 (0.7-2.0) mmol/L Calcium 9.0 (8.4-10.2) mg/dL Total Bilirubin 0.7 (0.2-1.3) mg/dL AST 34 (14-36) U/L ALT 21 (6-35) U/L Alkaline Phosphatase 101 (38-126) U/L Troponin I < 0.012 (0.000-0.034) ng/mL NT-Pro-B Natriuret Pep 153 H (19.9-100) pg/mL Total Protein 7.0 (6.3-8.2) g/dL Albumin 4.1 (3.5-5.1) g/dL Urine Color Yellow (Yellow) Urine Appearance Clear (Clear) Urine pH 5.0 (5.0-9.0) Ur Specific [place] 1.017 (1.001-1.035) Urine Protein Negative (Negative) mg/dL Urine Glucose (UA) Negative (Negative) mg/dL Urine Ketones Negative (Negative) mg/dL Ur Blood (Man) Negative (Negative) Urine Nitrate Negative (Negative) Urine Bilirubin Negative (Negative) Urine Urobilinogen 0.2 (<2.0) mg/dL Add Ur Microanalysis Reviewed Leukocyte Esterase Rfl 2+ H (Negative) TENA/UL Urine RBC 3-5 H (0-2) /hpf Urine WBC 11-20 H (0-3) /hpf Ur Squamous Epith Cells None seen (Few) /hpf Urine Bacteria None seen /hpf Urine Casts >20 Hyaline Casts Present (None) /lpf Influenza A (RT-PCR) Negative (Negative) Influenza B (RT-PCR) Negative (Negative) RSV (RT-PCR) Negative (Negative) SARS-CoV-2 RNA (RT-PCR) Negative (Negative) 07/02/24 07/02/24 07/03/24 Range/Units 16:57 21:56 00:41 WBC (4.5-10.0) K/mm3 RBC (4.2-5.4) M/mm3 Hgb (12.0-15.0) g/dL Hct (37.0-47.0) % MCV (80-100) fl MCH (26-34) pg MCHC (32-36) g/dl RDW (11.5-14.5) % Plt Count (150-375) k/mm3 MPV (7.4-10.4) fl Immature Gran % (Auto) (0-0.5) % Neut % (Auto) (45.5-73.1) % Lymph % (Auto) (18.3-44.2) % [place] % (Auto) (2.6-8.5) % Eos % (Auto) (0-4.4) % Baso % (Auto) (0.2-1.2) % Lymph # (Auto) (0.9-3.2) K/mm3 [place] # (Auto) (0.1-0.6) K/mm3 Eos # (Auto) (0-0.3) K/mm3 Baso # (Auto) (0.0-0.1) K/mm3 Abs Immat Gran (auto) (0.00-0.031) K/mm3 Absolute Neuts (auto) (1.3-6.7) K/mm3 Absolute Nucleated RBC (0.0-0.012) K/mm3 Nucleated RBC % (0.0-0.2) % PT (11.1-14.7) Seconds INR APTT (22.3-36.8) Seconds Sodium (137-145) mmol/L Potassium (3.4-5.0) mmol/L Chloride (98-107) mmol/L Carbon Dioxide (22-30) mmol/L Anion Gap (4-12) mmol/L BUN (7-17) mg/dL Creatinine (0.7-1.0) mg/dL Estim Creat Clear Calc ml/min Estimated GFR (59 - ) Glucose (65-110) mg/dL POC Capillary Glucose 433 H > 500 H* (65-105) mg/dl Hemoglobin A1c (<5.7) % Lactic Acid (0.7-2.0) mmol/L Calcium (8.4-10.2) mg/dL Total Bilirubin (0.2-1.3) mg/dL AST (14-36) U/L ALT (6-35) U/L Alkaline Phosphatase (38-126) U/L Troponin I < 0.012 (0.000-0.034) ng/mL NT-Pro-B Natriuret Pep (19.9-100) pg/mL Total Protein (6.3-8.2) g/dL Albumin (3.5-5.1) g/dL Urine Color (Yellow) Urine Appearance (Clear) Urine pH (5.0-9.0) Ur Specific [place] (1.001-1.035) Urine Protein (Negative) mg/dL Urine Glucose (UA) (Negative) mg/dL Urine Ketones (Negative) mg/dL Ur Blood (Man) (Negative) Urine Nitrate (Negative) Urine Bilirubin (Negative) Urine Urobilinogen (<2.0) mg/dL Add Ur Microanalysis Leukocyte Esterase Rfl (Negative) TENA/UL Urine RBC (0-2) /hpf Urine WBC (0-3) /hpf Ur Squamous Epith Cells (Few) /hpf Urine Bacteria /hpf Urine Casts Hyaline Casts (None) /lpf Influenza A (RT-PCR) (Negative) Influenza B (RT-PCR) (Negative) RSV (RT-PCR) (Negative) SARS-CoV-2 RNA (RT-PCR) (Negative) 07/03/24 07/03/24 07/03/24 Range/Units 01:41 04:10 05:54 WBC (4.5-10.0) K/mm3 RBC (4.2-5.4) M/mm3 Hgb (12.0-15.0) g/dL Hct (37.0-47.0) % MCV (80-100) fl MCH (26-34) pg MCHC (32-36) g/dl RDW (11.5-14.5) % Plt Count (150-375) k/mm3 MPV (7.4-10.4) fl Immature Gran % (Auto) (0-0.5) % Neut % (Auto) (45.5-73.1) % Lymph % (Auto) (18.3-44.2) % [place] % (Auto) (2.6-8.5) % Eos % (Auto) (0-4.4) % Baso % (Auto) (0.2-1.2) % Lymph # (Auto) (0.9-3.2) K/mm3 [place] # (Auto) (0.1-0.6) K/mm3 Eos # (Auto) (0-0.3) K/mm3 Baso # (Auto) (0.0-0.1) K/mm3 Abs Immat Gran (auto) (0.00-0.031) K/mm3 Absolute Neuts (auto) (1.3-6.7) K/mm3 Absolute Nucleated RBC (0.0-0.012) K/mm3 Nucleated RBC % (0.0-0.2) % PT (11.1-14.7) Seconds INR APTT (22.3-36.8) Seconds Sodium (137-145) mmol/L Potassium (3.4-5.0) mmol/L Chloride (98-107) mmol/L Carbon Dioxide (22-30) mmol/L Anion Gap (4-12) mmol/L BUN (7-17) mg/dL Creatinine (0.7-1.0) mg/dL Estim Creat Clear Calc ml/min Estimated GFR (59 - ) Glucose 479 H (65-110) mg/dL POC Capillary Glucose 391 H 350 H (65-105) mg/dl Hemoglobin A1c (<5.7) % Lactic Acid (0.7-2.0) mmol/L Calcium (8.4-10.2) mg/dL Total Bilirubin (0.2-1.3) mg/dL AST (14-36) U/L ALT (6-35) U/L Alkaline Phosphatase (38-126) U/L Troponin I (0.000-0.034) ng/mL NT-Pro-B Natriuret Pep (19.9-100) pg/mL Total Protein (6.3-8.2) g/dL Albumin (3.5-5.1) g/dL Urine Color (Yellow) Urine Appearance (Clear) Urine pH (5.0-9.0) Ur Specific [place] (1.001-1.035) Urine Protein (Negative) mg/dL Urine Glucose (UA) (Negative) mg/dL Urine Ketones (Negative) mg/dL Ur Blood (Man) (Negative) Urine Nitrate (Negative) Urine Bilirubin (Negative) Urine Urobilinogen (<2.0) mg/dL Add Ur Microanalysis Leukocyte Esterase Rfl (Negative) TENA/UL Urine RBC (0-2) /hpf Urine WBC (0-3) /hpf Ur Squamous Epith Cells (Few) /hpf Urine Bacteria /hpf Urine Casts Hyaline Casts (None) /lpf Influenza A (RT-PCR) (Negative) Influenza B (RT-PCR) (Negative) RSV (RT-PCR) (Negative) SARS-CoV-2 RNA (RT-PCR) (Negative) 07/03/24 07/03/24 07/03/24 Range/Units 08:32 09:20 11:58 WBC 15.0 H (4.5-10.0) K/mm3 RBC 4.15 L (4.2-5.4) M/mm3 Hgb 11.8 L (12.0-15.0) g/dL Hct 35.7 L (37.0-47.0) % MCV 86.0 (80-100) fl MCH 28.4 (26-34) pg MCHC 33.1 (32-36) g/dl RDW 13.6 (11.5-14.5) % Plt Count 262 (150-375) k/mm3 MPV 10.7 H (7.4-10.4) fl Immature Gran % (Auto) (0-0.5) % Neut % (Auto) (45.5-73.1) % Lymph % (Auto) (18.3-44.2) % [place] % (Auto) (2.6-8.5) % Eos % (Auto) (0-4.4) % Baso % (Auto) (0.2-1.2) % Lymph # (Auto) (0.9-3.2) K/mm3 [place] # (Auto) (0.1-0.6) K/mm3 Eos # (Auto) (0-0.3) K/mm3 Baso # (Auto) (0.0-0.1) K/mm3 Abs Immat Gran (auto) (0.00-0.031) K/mm3 Absolute Neuts (auto) (1.3-6.7) K/mm3 Absolute Nucleated RBC (0.0-0.012) K/mm3 Nucleated RBC % (0.0-0.2) % PT (11.1-14.7) Seconds INR APTT (22.3-36.8) Seconds Sodium 135 L (137-145) mmol/L Potassium 3.6 (3.4-5.0) mmol/L Chloride 100 (98-107) mmol/L Carbon Dioxide 21 L (22-30) mmol/L Anion Gap 14 H (4-12) mmol/L BUN 27 H (7-17) mg/dL Creatinine 1.20 H (0.7-1.0) mg/dL Estim Creat Clear Calc 35 ml/min Estimated GFR 44 L (59 - ) Glucose 277 H (65-110) mg/dL POC Capillary Glucose 311 H 181 H (65-105) mg/dl Hemoglobin A1c (<5.7) % Lactic Acid (0.7-2.0) mmol/L Calcium 9.0 (8.4-10.2) mg/dL Total Bilirubin 0.4 (0.2-1.3) mg/dL AST 25 (14-36) U/L ALT 23 (6-35) U/L Alkaline Phosphatase 96 (38-126) U/L Troponin I (0.000-0.034) ng/mL NT-Pro-B Natriuret Pep (19.9-100) pg/mL Total Protein 8.0 (6.3-8.2) g/dL Albumin 4.2 (3.5-5.1) g/dL Urine Color (Yellow) Urine Appearance (Clear) Urine pH (5.0-9.0) Ur Specific [place] (1.001-1.035) Urine Protein (Negative) mg/dL Urine Glucose (UA) (Negative) mg/dL Urine Ketones (Negative) mg/dL Ur Blood (Man) (Negative) Urine Nitrate (Negative) Urine Bilirubin (Negative) Urine Urobilinogen (<2.0) mg/dL Add Ur Microanalysis Leukocyte Esterase Rfl (Negative) TENA/UL Urine RBC (0-2) /hpf Urine WBC (0-3) /hpf Ur Squamous Epith Cells (Few) /hpf Urine Bacteria /hpf Urine Casts Hyaline Casts (None) /lpf Influenza A (RT-PCR) (Negative) Influenza B (RT-PCR) (Negative) RSV (RT-PCR) (Negative) SARS-CoV-2 RNA (RT-PCR) (Negative) 07/03/24 07/03/24 Range/Units 12:15 16:56 WBC (4.5-10.0) K/mm3 RBC (4.2-5.4) M/mm3 Hgb (12.0-15.0) g/dL Hct (37.0-47.0) % MCV (80-100) fl MCH (26-34) pg MCHC (32-36) g/dl RDW (11.5-14.5) % Plt Count (150-375) k/mm3 MPV (7.4-10.4) fl Immature Gran % (Auto) (0-0.5) % Neut % (Auto) (45.5-73.1) % Lymph % (Auto) (18.3-44.2) % [place] % (Auto) (2.6-8.5) % Eos % (Auto) (0-4.4) % Baso % (Auto) (0.2-1.2) % Lymph # (Auto) (0.9-3.2) K/mm3 [place] # (Auto) (0.1-0.6) K/mm3 Eos # (Auto) (0-0.3) K/mm3 Baso # (Auto) (0.0-0.1) K/mm3 Abs Immat Gran (auto) (0.00-0.031) K/mm3 Absolute Neuts (auto) (1.3-6.7) K/mm3 Absolute Nucleated RBC (0.0-0.012) K/mm3 Nucleated RBC % (0.0-0.2) % PT (11.1-14.7) Seconds INR APTT (22.3-36.8) Seconds Sodium (137-145) mmol/L Potassium (3.4-5.0) mmol/L Chloride (98-107) mmol/L Carbon Dioxide (22-30) mmol/L Anion Gap (4-12) mmol/L BUN (7-17) mg/dL Creatinine (0.7-1.0) mg/dL Estim Creat Clear Calc ml/min Estimated GFR (59 - ) Glucose (65-110) mg/dL POC Capillary Glucose 267 H (65-105) mg/dl Hemoglobin A1c 7.8 H (<5.7) % Lactic Acid (0.7-2.0) mmol/L Calcium (8.4-10.2) mg/dL Total Bilirubin (0.2-1.3) mg/dL AST (14-36) U/L ALT (6-35) U/L Alkaline Phosphatase (38-126) U/L Troponin I (0.000-0.034) ng/mL NT-Pro-B Natriuret Pep (19.9-100) pg/mL Total Protein (6.3-8.2) g/dL Albumin (3.5-5.1) g/dL Urine Color (Yellow) Urine Appearance (Clear) Urine pH (5.0-9.0) Ur Specific [place] (1.001-1.035) Urine Protein (Negative) mg/dL Urine Glucose (UA) (Negative) mg/dL Urine Ketones (Negative) mg/dL Ur Blood (Man) (Negative) Urine Nitrate (Negative) Urine Bilirubin (Negative) Urine Urobilinogen (<2.0) mg/dL Add Ur Microanalysis Leukocyte Esterase Rfl (Negative) TENA/UL Urine RBC (0-2) /hpf Urine WBC (0-3) /hpf Ur Squamous Epith Cells (Few) /hpf Urine Bacteria /hpf Urine Casts Hyaline Casts (None) /lpf Influenza A (RT-PCR) (Negative) Influenza B (RT-PCR) (Negative) RSV (RT-PCR) (Negative) SARS-CoV-2 RNA (RT-PCR) (Negative) <Ashely Pickard MD - Last Filed: 07/05/24 10:06> ABG Data ABG results: 07/03/24 06:28 Puncture Site Right radial ABG pH 7.455 H ABG pCO2 32.4 L ABG pO2 60.6 L ABG PO2/FiO2 Ratio 2.89 ABG HCO3 22.3 ABG O2 Saturation 92.7 L ABG O2 Content 15.1 L ABG Base Excess -1.0 A-a Gradient 50.3 Oxyhemoglobin 90.2 Total Hemoglobin 11.9 L O2 Delivery Device Room air O2 Liters/Min Not Reportable FiO2 21 <Magda Marin APRN - Last Filed: 07/02/24 12:36> 07/03/24 06:28 Puncture Site Right radial ABG pH 7.455 H ABG pCO2 32.4 L ABG pO2 60.6 L ABG PO2/FiO2 Ratio 2.89 ABG HCO3 22.3 ABG O2 Saturation 92.7 L ABG O2 Content 15.1 L ABG Base Excess -1.0 A-a Gradient 50.3 Oxyhemoglobin 90.2 Total Hemoglobin 11.9 L O2 Delivery Device Room air O2 Liters/Min Not Reportable FiO2 21 <Ashely Pickard MD - Last Filed: 07/05/24 10:06> Imaging Data Radiologist's impression: ITS Impressions Chest X-Ray 07/02/24 13:57 IMPRESSION: 1. No acute cardiopulmonary disease. <Ashely Pickard MD - Last Filed: 07/05/24 10:06> Critical Care Time Critical Care Time Critical Care Time: Yes <Ashely Pickard MD - Last Filed: 07/05/24 10:06> Total Critical Care Time: 32 <Ashely Pickard MD - Last Filed: 07/05/24 10:06> Discharge Plan Discharge Clinical Impression: Asthma with COPD with exacerbation, UTI (urinary tract infection) <Magda Marin APRN - Last Filed: 07/02/24 12:36> Patient Disposition: Still a Patient <Madga Marin APRN - Last Filed: 07/02/24 12:36> Condition: Stable <Magda Marin APRN - Last Filed: 07/02/24 12:36>
[2024-07-02] MEDS: IPRATROPIUM 0.5 MG/ALBUTEROL SULFATE 2.5 MG AMPUL.NEB 3 ML INHALATION (13:05)
[2024-07-02 13:27] LABS: Basophils Percent Auto 0.3 % (0.2-1.2); Eosinophils Absolute Auto 0.1 K/mm3 (0-0.3); Eosinophils Percent Auto 1.1 % (0-4.4); Hematocrit 36.8 % (37.0-47.0); Hemoglobin 12.2 g/dL (12.0-15.0); Immature Granulocyte Absolute 0.03 K/mm3 (0.00-0.031); Immature Granulocyte Percent A 0.3 % (0-0.5); Lymphocytes Percent Auto 22.1 % (18.3-44.2); Mean Corpuscular HGB Conc 33.2 g/dl (32-36); Mean Corpuscular Hemoglobin 28.8 pg (26-34); Mean Platelet Volume 10.5 fl (7.4-10.4); Monocytes Percent Auto 9.7 % (2.6-8.5); Neutrophils Absolute Auto 6.6 K/mm3 (1.3-6.7); Neutrophils Percent Auto 66.5 % (45.5-73.1); Platelet Count Result 247 k/mm3 (150-375); Red Blood Count 4.23 M/mm3 (4.2-5.4); Red Cell Distribution Width 13.8 % (11.5-14.5)
[2024-07-02 13:38] LABS: Alanine Aminotransferase 21 U/L (6-35); Albumin Level 4.1 g/dL (3.5-5.1); Alkaline Phosphatase 101 U/L (38-126); Anion Gap 8 mmol/L (4-12); Aspartate Amino Transferase 34 U/L (14-36); Bilirubin,Total 0.7 mg/dL (0.2-1.3); Blood Urea Nitrogen 29 mg/dL (7-17); Carbon Dioxide 31 mmol/L (22-30); Chloride 93 mmol/L (98-107); Estimated CRCL calculation 28 ml/min; Estimated Glomerular Filt Rate 34; Glucose 324 mg/dL (65-110); Potassium 3.9 mmol/L (3.4-5.0); Sodium 132 mmol/L (137-145)
[2024-07-02 13:40] LABS: Lactic Acid Reflex 1.6 mmol/L (0.7-2.0)
[2024-07-02 13:47] LABS: NT Pro B Type Natriuretic Pept 153 pg/mL (19.9-100)
[2024-07-02 13:49] LABS: Troponin I < 0.012 ng/mL (0.000-0.034)
[2024-07-02 13:55] LABS: INR 1.2; Prothrombin Time 15.6 Seconds (11.1-14.7)
[2024-07-02 13:56] LABS: Partial Thromboplastin Time 32.6 Seconds (22.3-36.8)
[2024-07-02] MEDS: methylPREDNISolone SOD SUCC 125 MG VIAL IV PUSH (15:06)
[2024-07-02] MEDS: SODIUM CHLORIDE 0.9% IV 1,000 ML 999 ML IV CONT (15:06)
[2024-07-02] MEDS: ALBUTEROL SULFATE NEB 2.5 MG/3 ML INH 10 MG INHALATION ×2 (15:16→16:54)
[2024-07-02] MEDS: IPRATROPIUM BR 0.02% INH SOLN 0.5 MG/2.5 ML VIAL INHALATION ×3 (15:16→19:05)
[2024-07-02 15:26] LABS: Influenza A QL RT-PCR Negative (Negative); Influenza B QL RT-PCR Negative (Negative); RSV RNA, RT-PCR Negative (Negative); SARS-CoV-2 RNA PCR Negative (Negative)
--- NOTE | 2024-07-02 15:39 | PC.NURSE ---
Spoke with Wojciech in the lab, who states pts urine needed to be ran manually and needs 30 more minutes.
[2024-07-02 16:27] LABS: Add Urine Microscopic? YES; Appearance Urine Clear (Clear); Bacteria Urine None Seen /hpf; Bilirubin Urine Negative (Negative); Blood Urine Negative (Negative); Color Urine Yellow (Yellow); Glucose Urine UA Negative (Negative); Hyaline Casts Urine Present /lpf; Ketones Urine Negative (Negative); Leukocyte Esterase Ur 2+ LEU/UL (Negative); Need Manual Microscopic Reviewed; Nitrate Urine Negative (Negative); Non Pathogenic Casts >20; Protein Urine Negative (Negative); Specific Grav Ur 1.017 (1.001-1.035); Squamous Epithelial Cell Urine None Seen /hpf (Few); Urobilinogen Urine 0.2 mg/dL (<2.0)
--- NOTE | 2024-07-02 16:32 | PC.NURSE ---
Pt called out to say her breathing treatment was not going. This RN found the green piece to the treatment on the ground with the solution on the floor. This RN called ED respiratory and respiratory stated the treatment was almost over and it would be ok. Pt has expressed multiple concerns about not receiving all of the treatment. EDP Dr. Pickard aware and ordered another breathing treatment for pt.
[2024-07-02 17:28] LABS: Troponin I < 0.012 ng/mL (0.000-0.034)
[2024-07-02] MEDS: ALBUTEROL SULFATE NEB 2.5 MG/3 ML INH 5 MG INHALATION (19:05)
[2024-07-02] MEDS: AZITHROMYCIN 500 MG/NS 250 ML 500 MG/250 ML BAG 250 MG IVPB (19:59)
--- NOTE | 2024-07-02 20:14 | P.HP_ITS ---
H&P: HPI History of Present Illness Date/Time: 07/02/24 20:14 Chief Complaint: sob Narrative: This is a 78-year-old female with past medical history significant for COPD/emphysema, generalized anxiety disorder, dementia, type diabetes mellitus, chronic respiratory failure with hypoxia on home oxygen. Patient presents to the emergency room due to several days of wheezing, productive cough up copious amount of secretion green color, chills, poor appetite. patient was found to be wheezing and received several treatments of breathing treatments in the emergency room however is still with significant respiratory distress. Patient has been evaluation management and treatment. EXAMINATION: XR chest 2V DATE: 07/02/2024 13:48 INDICATION: Shortness of breath TECHNIQUE: frontal and lateral views of the chest were obtained. COMPARISON: Chest radiograph dated 03/14/24 FINDINGS: Mild eventration along both the left and right sides of the diaphragm. No focal airspace opacities, pulmonary edema, pleural effusion or pneumothorax. Heart size normal. Coronary artery stenting. Additional postoperative changes in the epigastric region. Chronic T10 and L1-2 compression fractures with change of prior vertebroplasty IMPRESSION: 1. No acute cardiopulmonary disease. Review of Systems Review of Systems: sob, productive cough Of green-colored sputum, chills, poor appetite. [facility] Past Medical History Medical History Anemia Anxiety Arthritis Asthma Asthma-COPD overlap syndrome Cerebrovascular accident Chronic kidney disease, stage 3 Chronic respiratory failure with hypoxia, on home oxygen therapy Colitis Congestive heart failure COPD exacerbation Coronary artery disease Depression Dyslipidemia Gastric ulcer Gastroesophageal reflux disease Hiatal hernia Hypertension Insulin dependent type 2 diabetes mellitus Myocardial infarction Pneumonia Surgical History Surgical History History of appendectomy History of bladder suspension procedure History of cardiac catheterization History of colonoscopy with polypectomy History of coronary artery stent placement History of dilation and curettage History of hysterectomy History of sinus surgery History of tubal ligation Family History Family History Mother Family history of diabetes mellitus in first degree relative Family history of primary malignant neoplasm of liver Family history of heart disease in male family member before age 55 Family history of hearing loss Family history of liver disease Diabetes mellitus Cerebrovascular accident Family history of pancreatic cancer Hypertension Father Family history of emphysema Sibling Diabetes mellitus Other Depression Family history of alcoholism Family history of allergic disorder Family history of arthritis Family history of cardiovascular disease Family history of coronary artery disease Family history of malignant neoplasm Family history of mental disorder Family history of osteoporosis Social History Social History Social History: Healthcare power of purchasing coordinator: Alistair Martínez. Code status: Full code. Smoking status: Never smoker Second hand tobacco smoke exposure: Yes Alcohol intake: never Alcohol use details: History of alcohol abuse, none since 2014. Substance use: never Do You Feel Safe in your Home?: Yes Lack of Transportation: No Lack of Food: Never True Current Housing: I Have Housing Concerned About Future Housing: No Difficulty Paying Gas/Electric Bills: No Difficulty Paying for Meds: No Currently Unemployed: No Education: High School Diploma/GED Difficulty w/ Childcare or Family Care: No Living arrangements: assisted living Additional living arrangements comments: Assisted living at [facility]. Occupation/Education: retired Gender identity (if verbalized by the patient): Female Spiritual care concerns: No Meds Home Medications and Allergies Home Medications Medication Instructions Recorded Confirmed Type acetaminophen 325 mg capsule 650 mg PO Q6H PRN Pain (Scale 10/14/19 07/02/24 History Score 1-3) alprazolam 0.5 mg tablet 0.75 mg PO HS 10/14/19 07/02/24 History aspirin 81 mg tablet,delayed 81 mg PO DAILY 10/14/19 07/02/24 History release (Adult Low Dose Aspirin) carvedilol 25 mg tablet (Coreg) 25 mg PO BID 10/14/19 07/02/24 History donepezil 5 mg tablet 10 mg PO DAILY 10/14/19 07/02/24 History furosemide 20 mg tablet 20 mg PO QAM 10/14/19 07/02/24 History glucose 4 gram chewable tablet 4 gm PO Q15M PRN Hypoglycemia 10/14/19 07/02/24 History (Dex4 Glucose) insulin glargine 100 unit/mL (3 50 unit subcut HS 10/14/19 07/02/24 History mL) subcutaneous pen (Lantus Solostar U-100 Insulin) ipratropium 0.5 mg-albuterol 3 mg 3 ml inhalation Q6H PRN Dyspnea 10/14/19 07/02/24 History (2.5 mg base)/3 mL nebulization soln methocarbamol 750 mg tablet 750 mg PO TID PRN Muscle Spasm 10/14/19 07/02/24 History montelukast 10 mg tablet 10 mg PO HS 10/14/19 07/02/24 History multivitamin 1 tablet PO DAILY 10/14/19 07/02/24 History pantoprazole 40 mg tablet,delayed 40 mg PO DAILY 10/14/19 07/02/24 History release paroxetine HCl 40 mg tablet 60 mg PO DAILY 10/14/19 07/02/24 History sitagliptin phosphate 100 mg 100 mg PO QAM 10/14/19 07/02/24 History tablet (Januvia) vitamin B complex (B 1 tablet PO DAILY 10/14/19 07/02/24 History Complex-Vitamin B12 tablet) polyethylene glycol 3350 17 17 gm PO BID PRN Constipation 09/18/21 07/02/24 History gram/dose oral powder (Miralax) atorvastatin 20 mg tablet 20 mg PO HS 04/23/22 07/02/24 History glipizide 10 mg tablet 10 mg PO DAILY 04/23/22 07/02/24 History albuterol sulfate 90 mcg/actuation 2 inhalation inhalation 4-6XD PRN 08/23/22 07/02/24 Rx aerosol inhaler Shortness Of Breath Or Wheezing #8.5 grams fluticasone fur. 100 mcg-umeclid 1 inh inhalation DAILY #60 ea 08/23/22 07/02/24 Rx 62.5 mcg-vilant 25 mcg inhalat.powder (Trelegy Ellipta) fluticasone propionate 50 1 spray intranasal Q12HR #16 grams 08/23/22 07/02/24 Rx mcg/actuation nasal spray,suspension guaifenesin 600 mg tablet, 600 mg PO Q12HR #14 tabs 08/23/22 07/02/24 Rx extended release 12 hr (Mucus Relief ER) hydrocortisone 1 % topical cream 1 applic topical Q12HR PRN itching 08/23/22 07/02/24 Rx #28.35 grams insulin aspart U-100 100 unit/mL 4 - 8 unit subcut TIDWM #10 mL 08/23/22 07/02/24 Rx subcutaneous solution (Novolog U-100 Insulin aspart) lanolin alcohols-mineral 1 applic topical DAILY #113 grams 08/23/22 07/02/24 Rx oil-w.petrolatum-ceresin topical cream (Minerin Creme topical) peg [id number]-[id number] 1 1 drp EACH EYE QID PRN Dry Eye(S) 08/23/22 07/02/24 Rx %-0.2 %-0.2 % eye drops #15 mL (Artificial Tears ([id number])) lidocaine 5 % topical cream 1 applic topical BID PRN pain 7 05/21/23 07/02/24 Rx days #28.35 grams Robitussin DM Max 10 ml PO Q4H PRN Cough 07/02/24 07/02/24 History acetaminophen 500 mg capsule 500 mg PO QID PRN Pain (Scale 07/02/24 07/02/24 History Score 4-6) alprazolam 0.5 mg tablet 1 mg PO BID 07/02/24 07/02/24 History biotin 2,500 mcg PO DAILY 07/02/24 07/02/24 History buspirone 10 mg tablet 20 mg PO TID 07/02/24 07/02/24 History multivitamin (Daily-[place] tablet) 1 tablet PO DAILY 07/02/24 07/02/24 History tramadol 50 mg tablet 50 mg PO Q6H PRN Pain (Scale Score 07/02/24 07/02/24 History 4-6) Allergies Allergy/AdvReac Type Severity Reaction Status Date / Time meperidine AdvReac Mild Diarrhea Verified 12/03/23 11:09 Vital Signs Vital Signs - 24 hr 07/02/24 10:22 07/02/24 13:05 07/02/24 13:12 Temperature 97.3 F L Pulse Rate 77 70 68 Respiratory Rate 20 16 16 Blood Pressure 129/67 Pulse Oximetry 93 07/02/24 13:59 07/02/24 15:17 07/02/24 15:32 Temperature Pulse Rate 71 74 74 Respiratory Rate 18 20 28 H Blood Pressure 136/77 144/58 H Pulse Oximetry 92 100 07/02/24 16:55 07/02/24 16:17 07/02/24 18:18 Temperature Pulse Rate 87 94 80 Respiratory Rate 22 H 20 24 H Blood Pressure 156/77 H Pulse Oximetry 94 07/02/24 19:05 07/02/24 19:18 Temperature Pulse Rate 82 78 Respiratory Rate 22 H 20 Blood Pressure Pulse Oximetry Exam Narrative: lying in stretcher Const: General: comfortable, no acute distress, well developed, alert, awake and average body habitus Nutritional Appearance: average body habitus Orientation/consciousness: patient oriented x3 HENMT: Head: normal to inspection, normocephalic and atraumatic Ears: hearing grossly normal bilaterally Face/Nose/Sinus: normal facial exam Face and sinus: normal facial exam Eyes: General: appearance normal, both eyes and all related structures Pupils: Equal, round and reactive pupils present EOM: EOMs intact bilaterally Neck: Neck: full ROM, no lymphadenopathy and no JVD Thyroid: thyroid normal Lymphatic: no lymphadenopathy noted Resp: Effort & Inspection: able to speak in complete sentences and tachypneic Auscultation: wheezes and diminished lung sounds Cardio: Jugular venous distension: no JVD Rate: regular rate Rhythm: regular rhythm Heart sounds: S1 normal heart sound present and S2 normal heart sound present GI: GI Palp: Yes Soft to palpation and Yes No hepatosplenomegaly present : General: Yes deferred Skin: Rashes: no rashes Wounds: no wounds Neuro: General: patient oriented x3 and CN's II-XI intact bilaterally Cranial nerves: Yes CN's II-XII intact bilaterally and Yes Equal, round and reactive pupils present Cognition (Neuro): normal cognition Speech: normal speech Gait exam (Neuro): Normal gait present Motor exam (neuro): 5/5 motor strength present throughout Extrem: General: normal to inspection, full ROM, no joint enlargement and no pedal edema H&P: Results Labs Labs: Short CBC 07/02/24 Range/Units 13:19 WBC 10.0 (4.5-10.0) K/mm3 Hgb 12.2 (12.0-15.0) g/dL Hct 36.8 L (37.0-47.0) % Plt Count 247 (150-375) k/mm3 [facility] 07/02/24 13:19 Sodium 132 L Potassium 3.9 Chloride 93 L Carbon Dioxide 31 H BUN 29 H D Creatinine 1.50 H Glucose 324 H Calcium 9.0 Cardiac Enzymes 07/02/24 07/02/24 Range/Units 13:19 16:57 Troponin I < 0.012 < 0.012 (0.000-0.034) ng/mL Liver Function 07/02/24 Range/Units 13:19 Total Bilirubin 0.7 (0.2-1.3) mg/dL AST 34 (14-36) U/L ALT 21 (6-35) U/L Alkaline Phosphatase 101 (38-126) U/L Albumin 4.1 (3.5-5.1) g/dL Urine 07/02/24 Range/Units 14:22 Urine Color Yellow (Yellow) Urine Appearance Clear (Clear) Urine pH 5.0 (5.0-9.0) Ur Specific [place] 1.017 (1.001-1.035) Urine Protein Negative (Negative) mg/dL Urine Glucose (UA) Negative (Negative) mg/dL Assessment and Plan Assessment and plan (1) UTI (urinary tract infection): Code(s): N39.0 - Urinary tract infection, site not specified Status: Acute Assessment and Plan: Started on Rocephin (2) Chronic respiratory failure with hypoxia: Code(s): J96.11 - Chronic respiratory failure with hypoxia Status: Acute Assessment and Plan: on supplemental oxygen (3) Insulin dependent type 2 diabetes mellitus: Code(s): E11.9 - Type 2 diabetes mellitus without complications; Z79.4 - custodial (current) use of insulin Status: Acute Assessment and Plan: resume home meds holding glipizide (4) Chronic respiratory failure with hypoxia, on home oxygen therapy: Code(s): J96.11 - Chronic respiratory failure with hypoxia; Z99.81 - Dependence on supplemental oxygen Status: Acute Assessment and Plan: on supplemental oxygen by nasal cannula (5) Asthma with COPD with exacerbation: Code(s): J44.1 - Chronic obstructive pulmonary disease with (acute) exacerbation; J45.901 - Unspecified asthma with (acute) exacerbation Status: Acute Assessment and Plan: breathing treatments systemic steroid started Rocephin and Zithromax Hospitalist [facility] Advance Care Plan I have confirmed that the patient's Advanced Care Plan is present, code status is documented, or surrogate decision maker is listed in patient medical record.: Yes Medication Reconciliation I have utilized all available resources to obtain, update and review the patients current medications (includes all prescriptions, OTC, herbals, cannabis, and nutritional supplements).: Yes
[2024-07-02 22:02] LABS: Glucose Point of Care 433 mg/dl (65-105)
--- NOTE | 2024-07-02 23:23 | ADMGEN ---
This patient, Arabella Pike, was admitted to 2 Medical Room 252-01. Patient/family oriented to hospital policies and general routines including ID bracelet, bed and alarms, visiting hours, pain management, procedures, bathroom and other care routines, personal items, smoking policy, room service/diet, and visiting hours. Information on how to activate the Rapid Response Team has been discussed. Patient/Family are encouraged to report perceived risks to care and to ask questions if they do not understand what they are told or what they should do.
[2024-07-02] MEDS: INSULIN ASPART (*BKC) 100 UNITS/ML 8 UNITS SUB-Q (23:39)
[2024-07-02] MEDS: methylPREDNISolone SOD SUCC 125 MG VIAL 60 MG IV PUSH (23:49)
[2024-07-03] VITALS (16 sets, daily range): BP systolic 123–135; BP diastolic 53–72; PULSE 49–80; RESP 16–20; TEMP 36.5–36.9; O2SAT 91–100
[2024-07-03 00:46] LABS: Glucose Point of Care > 500 mg/dl (65-105)
[2024-07-03] MEDS: IPRATROPIUM 0.5 MG/ALBUTEROL SULFATE 2.5 MG AMPUL.NEB 3 ML INHALATION ×4 (02:05→21:50)
[2024-07-03 02:26] LABS: Glucose 479 mg/dL (65-110)
[2024-07-03] MEDS: INSULIN HUMAN REGULAR (*BKC) 100 UNITS/ML 10 UNITS SUB-Q ×2 (03:06→04:40)
[2024-07-03 04:14] LABS: Glucose Point of Care 391 mg/dl (65-105)
[2024-07-03] MEDS: cefTRIAXone 2 GM/NS 100 ML 2 GM/100 ML BAG IVPB (04:20)
[2024-07-03] MEDS: methylPREDNISolone SOD SUCC 125 MG VIAL 60 MG IV PUSH ×3 (06:05→17:42)
[2024-07-03] MEDS: INSULIN HUMAN REGULAR (*BKC) 100 UNITS/ML 8 UNITS SUB-Q (06:07)
[2024-07-03 06:19] LABS: Glucose Point of Care 350 mg/dl (65-105)
[2024-07-03 06:36] LABS: Alveolar/Arterial O2 Gradient 50.3 mmHg; Fractional Inspired Oxygen 21 %; HCO3 ABG 22.3 mEq/l (22.0-26.0); Oxygen Content ABG 15.1 %vol (16.0-22.0); Oxygen Saturation ABG 92.7 % (95.0-100.0); Oxyhemoglobin 90.2 % THb (90.0-100.0); PCO2 ABG 32.4 mmHg (35.0-45.0); PO2 ABG 60.6 mmHg (80.0-100.0); PO2 FiO2 Ratio Arterial Blood 2.89 %; Total Hemoglobin 11.9 g/dL (12.0-18.0); pH ABG 7.455 (7.350-7.450)
[2024-07-03 06:38] LABS: Device ROOM AIR; Modified Allen's Test Pass; Site Drawn RIGHT RADIAL
[2024-07-03] MEDS: FLUTICASONE/UMECLIDIN/VILANTER 100-62.5-25 MCG ELLIPTA 1 PUFF INHALATION (07:43)
[2024-07-03 08:34] LABS: Glucose Point of Care 311 mg/dl (65-105)
[2024-07-03] MEDS: PARoxetine 20 MG TABLET 60 MG PO (09:06)
[2024-07-03] MEDS: ALPRAZolam (*CRX) 0.5 MG TABLET 1 MG PO ×2 (09:06→17:27)
[2024-07-03] MEDS: ASPIRIN 81 MG ENTERIC TABLET PO (09:07)
[2024-07-03] MEDS: guaiFENesin 12 HR 600 MG TABCR PO ×2 (09:07→21:39)
[2024-07-03] MEDS: DONEPEZIL HCL 5 MG TABLET 10 MG PO (09:07)
[2024-07-03] MEDS: PANTOPRAZOLE 40 MG TABLET PO (09:07)
[2024-07-03] MEDS: busPIRone HCL 10 MG TABLET 20 MG PO ×3 (09:07→17:27)
[2024-07-03] MEDS: INSULIN ASPART (*BKC) 100 UNITS/ML SUB-Q ×3 (09:08→17:26)
[2024-07-03] MEDS: carvediloL 25 MG TABLET PO ×2 (09:10→21:38)
[2024-07-03 09:55] LABS: Hematocrit 35.7 % (37.0-47.0); Hemoglobin 11.8 g/dL (12.0-15.0); Mean Corpuscular HGB Conc 33.1 g/dl (32-36); Mean Corpuscular Hemoglobin 28.4 pg (26-34); Mean Platelet Volume 10.7 fl (7.4-10.4); Platelet Count Result 262 k/mm3 (150-375); Red Blood Count 4.15 M/mm3 (4.2-5.4); Red Cell Distribution Width 13.6 % (11.5-14.5)
[2024-07-03 10:14] LABS: Alanine Aminotransferase 23 U/L (6-35); Albumin Level 4.2 g/dL (3.5-5.1); Alkaline Phosphatase 96 U/L (38-126); Anion Gap 14 mmol/L (4-12); Aspartate Amino Transferase 25 U/L (14-36); Bilirubin,Total 0.4 mg/dL (0.2-1.3); Blood Urea Nitrogen 27 mg/dL (7-17); Carbon Dioxide 21 mmol/L (22-30); Chloride 100 mmol/L (98-107); Estimated CRCL calculation 35 ml/min; Estimated Glomerular Filt Rate 44; Glucose 277 mg/dL (65-110); Potassium 3.6 mmol/L (3.4-5.0); Sodium 135 mmol/L (137-145)
[2024-07-03] MEDS: ACETAMINOPHEN 325 MG TABLET 650 MG PO (11:00)
--- NOTE | 2024-07-03 11:40 | P.PNIM_ITS ---
Progress Note: A&P Assessment and Plan (1) Chronic respiratory failure with hypoxia, on home oxygen therapy: Code(s): J96.11 - Chronic respiratory failure with hypoxia; Z99.81 - Dependence on supplemental oxygen Status: Acute Assessment and Plan: * likely due to COPD exacerbation verses asthma verses bronchitis /bronchospasm * patient has no history of smoking * wears 2 L at home at baseline currently on 3 L * continue to wean O2 for a sat greater than 92% * chest x-ray was negative * continue steroids * continue DuoNebs * continue Mucinex * start Flonase * will start Singulair and Claritin * Will get ApneaLink tonight as she has had some confusion this morning when waking up * continue azithromycin (2) Asthma with COPD with exacerbation: Code(s): J44.1 - Chronic obstructive pulmonary disease with (acute) exacerbation; J45.901 - Unspecified asthma with (acute) exacerbation Status: Acute Assessment and Plan: see above plan of care (3) UTI (urinary tract infection): Code(s): N39.0 - Urinary tract infection, site not specified Status: Acute Assessment and Plan: * UA showed 2+ leukocytes 3-5 urine RBC, to 20 urine RBC. 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 Status: Acute Assessment and Plan: had blood sugar ranging 300s to 500 initially, not in DKA, pH normal * Blood sugars ranging 181-350 * Hgb A1C 7.5 on 04/24/2022 * will repeat hemoglobin A1c today * Accu checks AC/HS * high-dose SSI ordered * Lantus increased to 60 units at HS * Will add mealtime replacement of 4 units with meals * hypoglycemic protocol in place * Diabetic diet ordered * glimepiride and Januvia on hold Time Spent With Patient Time with patient: 25 - 35 minutes Subjective Date/time seen: 07/03/24 11:40 Interval history: interval history: is a 78-year-old female who presented to the hospital on 07/02/2024 with shortness of Breath. Workup in the hospital included a chest x-ray which was negative. 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 Initial labs showed a normal white blood cell count of 10.0 sodium 132, chloride 93, bicarb 31, creatinine 1.50, EGFR 34, blood sugar 324-479, anion gap 8, troponin was negative x2, proBNP 153. UA was obtained and showed 2+ leukocyte, 3-5 urine RBC, 11-20 urine WBC. Respiratory panel was negative for influenza a and B, RSV, COVID. Urine and blood cultures were obtained and are pending. Patient was given DuoNeb, 1 L of normal saline, 125 mg IV push Solu-Medrol, azithromycin while in the ED. subjective: patient reporting productive cough with green thick sputum, shortness of breath, wheezing. she is currently on 3 L nasal cannula. She Denies any fever, chills, nausea, vomiting, diarrhea, abdominal pain, chest pain. Labs and imaging reviewed. Review of Systems Review of Systems: All systems reviewed & are unremarkable except as noted in HPI and below Constitutional: Constitutional: Reports as per HPI and Reports no additional constitutional complaints Eyes: Eyes: Reports as per HPI and Reports no additional eye complaints ENT: Reports system reviewed and no additional complaints, except as do cumented and Reports as per HPI Cardiovascular: Cardiovascular: Reports as per HPI and Reports no additional cardiovascular complaints Respiratory: Respiratory: Reports as per HPI and Reports no additional respiratory complaints Gastrointestinal: Gastrointestinal: Reports as per HPI and Reports no additional gastrointestinal complaints Genitourinary: Genitourinary: Reports no additional female genitourinary complaints and Reports as per HPI Musculoskeletal: Musculoskeletal: Reports no additional musculoskeletal complaints and Reports as per HPI Integumentary/Breasts: Skin/Breast: Reports system reviewed and no additional complaints, except as docu and Reports as per HPI Neurologic: Reports system reviewed and no additional complaints, except as documented and Reports as per HPI Psychiatric: Psychiatric: Reports no additional psychiatric complaints and Reports as per HPI Exam Narrative: General: In no acute distress, well nourished Head: atraumatic, no encephalopathy Eyes: PERRLA, sclera clear ENT: moist mucous membranes, nasal passages clear Neck: supple, no JVD, no adenopathy, trachea midline Cardiac: Normal S1 and S2. No murmur, gallops or friction rubs, peripheral pulses intact. Respiratory: Lungs with rhonchi and wheezing throughout all lung maria, currently on 3 L nasal cannula, productive tight cough Gastrointestinal: soft, non-distended, non-tender, normoactive bowel sounds. : voiding without difficulty. Extremities: moves all extremities well, no edema Skin: clean, dry, intact. No wounds or lesions. Neuro: Alert and oriented x4, cranial nerves intact, no neuro deficits. Psych: confused at times, interactive Objective Data Vital Signs Vital Signs: Vital Signs - 24 hr 07/02/24 13:05 07/02/24 13:12 07/02/24 13:59 Temperature Pulse Rate 70 68 71 Respiratory Rate 16 16 18 Blood Pressure 136/77 Pulse Oximetry 92 Oxygen Delivery Oxygen Flow Rate 07/02/24 15:17 07/02/24 15:32 07/02/24 16:55 Temperature Pulse Rate 74 74 87 Respiratory Rate 20 28 H 22 H Blood Pressure 144/58 H Pulse Oximetry 100 Oxygen Delivery Oxygen Flow Rate 07/02/24 16:17 07/02/24 18:18 07/02/24 19:05 Temperature Pulse Rate 94 80 82 Respiratory Rate 20 24 H 22 H Blood Pressure 156/77 H Pulse Oximetry 94 Oxygen Delivery Oxygen Flow Rate 07/02/24 19:18 07/02/24 17:01 07/02/24 17:15 Temperature Pulse Rate 78 82 80 Respiratory Rate 20 24 H 21 H Blood Pressure 157/88 H Pulse Oximetry Oxygen Delivery Oxygen Flow Rate 07/02/24 17:30 07/02/24 17:47 07/02/24 18:00 Temperature Pulse Rate 82 84 84 Respiratory Rate 27 H 26 H 23 H Blood Pressure 163/83 H Pulse Oximetry Oxygen Delivery Oxygen Flow Rate 07/02/24 18:15 07/02/24 19:31 07/02/24 23:13 Temperature 97.7 F Pulse Rate 79 93 85 Respiratory Rate 24 H 22 H 20 Blood Pressure 135/96 H Pulse Oximetry 95 92 Oxygen Delivery Oxygen Flow Rate 07/02/24 22:40 07/02/24 23:03 07/03/24 02:06 Temperature 97.9 F Pulse Rate 81 74 Respiratory Rate 24 H 18 Blood Pressure 121/93 H Pulse Oximetry 96 Oxygen Delivery Room Air Oxygen Flow Rate 07/03/24 02:08 07/03/24 02:14 07/03/24 04:32 Temperature 97.7 F Pulse Rate 78 72 Respiratory Rate 18 20 Blood Pressure 135/53 L Pulse Oximetry 91 97 Oxygen Delivery Room Air Oxygen Flow Rate 07/03/24 07:45 07/03/24 07:45 07/03/24 07:54 Temperature Pulse Rate 55 L 54 L Respiratory Rate 20 20 Blood Pressure Pulse Oximetry 98 Oxygen Delivery Nasal Cannula Oxygen Flow Rate 3 07/03/24 09:10 Temperature Pulse Rate 60 Respiratory Rate Blood Pressure Pulse Oximetry Oxygen Delivery Oxygen Flow Rate Intake/Output Intake/Output: Intake & Output 06/30/24 07/01/24 07/02/24 07/03/24 23:59 23:59 23:59 23:59 Intake Total 1250 580 Output Total 300 Balance 1250 280 Meds/Results Medications: Active Medications Generic Name Dose Route Start Last Admin Trade Name Freq PRN Reason Stop Dose Admin Acetaminophen 650 mg 07/03/24 10:38 07/03/24 11:00 Acetaminophen 325 Mg Tablet PO 650 mg Q6H PRN Administration Mild Pain (1-3) or Fever Albuterol/Ipratropium 3 ml 07/03/24 02:00 07/03/24 07:44 Ipratropium 0.5 Mg/Albuterol Sulfate 2.5 Mg Ampul.Neb 3 Ml INHALATION 3 ml Q6HRT SADI Administration Alprazolam 1 mg 07/03/24 09:00 07/03/24 09:06 Alprazolam (*Crx) 0.5 Mg Tablet PO 1 mg BID SADI Administration Alprazolam 0.75 mg 07/03/24 21:00 Alprazolam (*Crx) 0.25 Mg Tablet PO HS SADI Aspirin 81 mg 07/03/24 09:00 07/03/24 09:07 Aspirin 81 Mg Enteric Tablet PO 81 mg DAILY SADI Administration Atorvastatin Calcium 20 mg 07/03/24 21:00 Atorvastatin 20 Mg Tablet PO HS SADI Buspirone HCl 20 mg 07/03/24 09:00 07/03/24 09:07 Buspirone Hcl 10 Mg Tablet PO 20 mg TID SADI Administration Carvedilol 25 mg 07/03/24 09:00 07/03/24 09:10 Carvedilol 25 Mg Tablet PO 25 mg Q12HR SADI Administration Dextrose 12.5 gm 07/02/24 23:29 Dextrose 50% 25 Gm/50 Ml Syringe IV PUSH PRN PRN Hypoglycemia Protocol Donepezil HCl 10 mg 07/03/24 09:00 07/03/24 09:07 Donepezil Hcl 5 Mg Tablet PO 10 mg DAILY SADI Administration Fluticasone Propionate 1 spray 07/03/24 09:00 07/03/24 10:42 Fluticasone Propionate 0.05% Na Spr 16 Gm Btl (*Bkc) NASAL Not Given Q12HR SADI Fluticasone/Umeclidinium/Vilanterol 1 puff 07/03/24 08:00 07/03/24 07:43 Fluticasone/Umeclidin/Vilanter 100-62.5-25 Mcg Ellipta INHALATION 1 puff DAILYRT SADI Administration Glucose 15 gm 07/02/24 23:29 Glucose Oral Gel 15 Gm Of Glucse In 37.5 Gm Tube PO PRN PRN Hypoglycemia Protocol Guaifenesin 600 mg 07/03/24 09:00 07/03/24 09:07 Guaifenesin 12 Hr 600 Mg Tabcr PO 600 mg Q12HR SADI Administration Guaifenesin/Dextromethorphan 10 ml 07/03/24 01:31 Guaifenesin/Dextromethorphan 10 Ml Udc PO Q4H PRN Cough Dextrose 1,000 mls @ 100 mls/hr 07/02/24 23:29 Dextrose 5% 1,000 Ml IVPB PRN PRN Hypoglycemia Protocol Ceftriaxone Sodium 2 gm in 100 mls @ 200 mls/hr 07/03/24 04:00 07/03/24 04:50 Rocephin 2 Gm/Ns 100 Ml IVPB Infused Q24H SADI Infusion Azithromycin 500 mg in 250 mls @ 250 mls/hr 07/03/24 20:00 Zithromax IVPB Q24H SADI Insulin Aspart 4 - 8 units 07/03/24 08:00 07/03/24 09:08 Insulin Aspart (*Bkc) 100 Units/Ml SUB-Q 6 units TIDWM SADI Administration Protocol Insulin Glargine 50 units 07/03/24 21:00 Insulin Glargine (*Bkc) 100 Units/Ml SUB-Q HS SADI Insulin Human Regular 8 units 07/03/24 06:00 07/03/24 06:07 Insulin Human Regular (*Bkc) 100 Units/Ml SUB-Q 8 units Q6HR SADI Administration Methocarbamol 750 mg 07/03/24 01:31 Methocarbamol 750 Mg Tablet PO TID PRN Muscle Spasm Methylprednisolone Sodium Succinate 60 mg 07/03/24 00:00 07/03/24 06:05 Methylprednisolone Sod Succ 125 Mg Vial IV PUSH 60 mg Q6HR SADI Administration Montelukast Sodium 10 mg 07/03/24 21:00 Montelukast Sodium 10 Mg Tablet PO HS SADI Pantoprazole Sodium 40 mg 07/03/24 09:00 07/03/24 09:07 Pantoprazole 40 Mg Tablet PO 40 mg DAILY SADI Administration Paroxetine HCl 60 mg 07/03/24 09:00 07/03/24 09:06 Paroxetine 20 Mg Tablet PO 60 mg DAILY SADI Administration Polyethylene Glycol 17 gm 07/03/24 01:31 Polyethylene Glycol 3350 17 Gm Powd.Pack PO BID PRN Constipation Tramadol HCl 50 mg 07/03/24 01:31 Tramadol Hcl (*Crx) 50 Mg Tablet PO Q6H PRN Pain (Scale Score 4-6) Radiology Results: ITS Impressions Chest X-Ray 07/02/24 13:57 IMPRESSION: 1. No acute cardiopulmonary disease. Head CT 07/03/24 09:04 IMPRESSION: 1. 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 No acute intracranial process. 2. Age related changes including mild to moderate diffuse volume loss and moderate scattered white matter hypoattenuation consistent with chronic small vessel ischemic disease. Labs Labs: Laboratory Results - last 24 hr 07/02/24 07/02/24 07/02/24 13:19 14:22 14:43 WBC 10.0 RBC 4.23 Hgb 12.2 Hct 36.8 L MCV 87.0 MCH 28.8 MCHC 33.2 RDW 13.8 Plt Count 247 MPV 10.5 H Immature Gran % (Auto) 0.3 Neut % (Auto) 66.5 Lymph % (Auto) 22.1 Winston % (Auto) 9.7 H Eos % (Auto) 1.1 Baso % (Auto) 0.3 Lymph # (Auto) 2.20 Winston # (Auto) 1.0 H Eos # (Auto) 0.1 Baso # (Auto) 0.0 Abs Immat Gran (auto) 0.03 Absolute Neuts (auto) 6.6 Absolute Nucleated RBC 0.000 Nucleated RBC % 0.0 PT 15.6 H INR 1.2 APTT 32.6 Puncture Site ABG pH ABG pCO2 ABG pO2 ABG PO2/FiO2 Ratio ABG HCO3 ABG O2 Saturation ABG O2 Content ABG Base Excess A-a Gradient Oxyhemoglobin Total Hemoglobin O2 Delivery Device O2 Liters/Min FiO2 Sodium 132 L Potassium 3.9 Chloride 93 L Carbon Dioxide 31 H Anion Gap 8 BUN 29 H D Creatinine 1.50 H Estim Creat Clear Calc 28 Estimated GFR 34 L Glucose 324 H POC Capillary Glucose Lactic Acid 1.6 Calcium 9.0 Total Bilirubin 0.7 AST 34 ALT 21 Alkaline Phosphatase 101 Troponin I < 0.012 NT-Pro-B Natriuret Pep 153 H Total Protein 7.0 Albumin 4.1 Urine Color Yellow Urine Appearance Clear Urine pH 5.0 Ur Specific Rembrandt 1.017 Urine Protein Negative Urine Glucose (UA) Negative Urine Ketones Negative Ur Blood (Man) Negative Urine Nitrate Negative Urine Bilirubin Negative Urine Urobilinogen 0.2 Add Ur Microanalysis Reviewed Leukocyte Esterase Rfl 2+ H Urine RBC 3-5 H Urine WBC 11-20 H Ur Squamous Epith Cells None seen Urine Bacteria None seen Urine Casts >20 Hyaline Casts Present Influenza A (RT-PCR) Negative Influenza B (RT-PCR) Negative RSV (RT-PCR) Negative SARS-CoV-2 RNA (RT-PCR) Negative 07/02/24 07/02/24 07/03/24 16:57 21:56 00:41 WBC RBC Hgb Hct MCV MCH MCHC RDW Plt Count MPV Immature Gran % (Auto) Neut % (Auto) Lymph % (Auto) Winston % (Auto) Eos % (Auto) Baso % (Auto) Lymph # (Auto) Winston # (Auto) Eos # (Auto) Baso # (Auto) Abs Immat Gran (auto) Absolute Neuts (auto) Absolute Nucleated RBC Nucleated RBC % PT INR APTT Puncture Site ABG pH ABG pCO2 ABG pO2 ABG PO2/FiO2 Ratio ABG HCO3 ABG O2 Saturation ABG O2 Content ABG Base Excess A-a Gradient Oxyhemoglobin Total Hemoglobin O2 Delivery Device O2 Liters/Min FiO2 Sodium Potassium Chloride Carbon Dioxide Anion Gap BUN Creatinine Estim Creat Clear Calc Estimated GFR Glucose POC Capillary Glucose 433 H > 500 H* Lactic Acid Calcium Total Bilirubin AST ALT Alkaline Phosphatase Troponin I < 0.012 NT-Pro-B Natriuret Pep Total Protein Albumin Urine Color Urine Appearance Urine pH Ur Specific Rembrandt Urine Protein Urine Glucose (UA) Urine Ketones Ur Blood (Man) Urine Nitrate Urine Bilirubin Urine Urobilinogen Add Ur Microanalysis Leukocyte Esterase Rfl Urine RBC Urine WBC Ur Squamous Epith Cells Urine Bacteria Urine Casts Hyaline Casts Influenza A (RT-PCR) Influenza B (RT-PCR) RSV (RT-PCR) SARS-CoV-2 RNA (RT-PCR) 07/03/24 07/03/24 07/03/24 01:41 04:10 05:54 WBC RBC Hgb Hct MCV MCH MCHC RDW Plt Count MPV Immature Gran % (Auto) Neut % (Auto) Lymph % (Auto) Winston % (Auto) Eos % (Auto) Baso % (Auto) Lymph # (Auto) Winston # (Auto) Eos # (Auto) Baso # (Auto) Abs Immat Gran (auto) Absolute Neuts (auto) Absolute Nucleated RBC Nucleated RBC % PT INR APTT Puncture Site ABG pH ABG pCO2 ABG pO2 ABG PO2/FiO2 Ratio ABG HCO3 ABG O2 Saturation ABG O2 Content ABG Base Excess A-a Gradient Oxyhemoglobin Total Hemoglobin O2 Delivery Device O2 Liters/Min FiO2 Sodium Potassium Chloride Carbon Dioxide Anion Gap BUN Creatinine Estim Creat Clear Calc Estimated GFR Glucose 479 H POC Capillary Glucose 391 H 350 H Lactic Acid Calcium Total Bilirubin AST ALT Alkaline Phosphatase Troponin I NT-Pro-B Natriuret Pep Total Protein Albumin Urine Color Urine Appearance Urine pH Ur Specific Rembrandt Urine Protein Urine Glucose (UA) Urine Ketones Ur Blood (Man) Urine Nitrate Urine Bilirubin Urine Urobilinogen Add Ur Microanalysis Leukocyte Esterase Rfl Urine RBC Urine WBC Ur Squamous Epith Cells Urine Bacteria Urine Casts Hyaline Casts Influenza A (RT-PCR) Influenza B (RT-PCR) RSV (RT-PCR) SARS-CoV-2 RNA (RT-PCR) 07/03/24 07/03/24 07/03/24 06:28 08:32 09:20 WBC 15.0 H RBC 4.15 L Hgb 11.8 L Hct 35.7 L MCV 86.0 MCH 28.4 MCHC 33.1 RDW 13.6 Plt Count 262 MPV 10.7 H Immature Gran % (Auto) Neut % (Auto) Lymph % (Auto) Winston % (Auto) Eos % (Auto) Baso % (Auto) Lymph # (Auto) Winston # (Auto) Eos # (Auto) Baso # (Auto) Abs Immat Gran (auto) Absolute Neuts (auto) Absolute Nucleated RBC Nucleated RBC % PT INR APTT Puncture Site Right radial ABG pH 7.455 H ABG pCO2 32.4 L ABG pO2 60.6 L ABG PO2/FiO2 Ratio 2.89 ABG HCO3 22.3 ABG O2 Saturation 92.7 L ABG O2 Content 15.1 L ABG Base Excess -1.0 A-a Gradient 50.3 Oxyhemoglobin 90.2 Total Hemoglobin 11.9 L O2 Delivery Device Room air O2 Liters/Min Not Reportable FiO2 21 Sodium 135 L Potassium 3.6 Chloride 100 Carbon Dioxide 21 L Anion Gap 14 H BUN 27 H Creatinine 1.20 H Estim Creat Clear Calc 35 Estimated GFR 44 L Glucose 277 H POC Capillary Glucose 311 H Lactic Acid Calcium 9.0 Total Bilirubin 0.4 AST 25 ALT 23 Alkaline Phosphatase 96 Troponin I NT-Pro-B Natriuret Pep Total Protein 8.0 Albumin 4.2 Urine Color Urine Appearance Urine pH Ur Specific Rembrandt Urine Protein Urine Glucose (UA) Urine Ketones Ur Blood (Man) Urine Nitrate Urine Bilirubin Urine Urobilinogen Add Ur Microanalysis Leukocyte Esterase Rfl Urine RBC Urine WBC Ur Squamous Epith Cells Urine Bacteria Urine Casts Hyaline Casts Influenza A (RT-PCR) Influenza B (RT-PCR) RSV (RT-PCR) SARS-CoV-2 RNA (RT-PCR) Quality VTE Prophylaxis VTE prophylaxis: pharmacologic ordered
[2024-07-03 12:00] LABS: Glucose Point of Care 181 mg/dl (65-105)
[2024-07-03 17:00] LABS: Glucose Point of Care 267 mg/dl (65-105)
[2024-07-03 17:10] LABS: Hemoglobin A1C 7.8 % (<5.7)
[2024-07-03] MEDS: traMADol HCL (*CRX) 50 MG TABLET PO (21:36)
[2024-07-03] MEDS: MONTELUKAST SODIUM 10 MG TABLET PO (21:38)
[2024-07-03] MEDS: ALPRAZolam (*CRX) 0.25 MG TABLET 0.75 MG PO (21:38)
[2024-07-03] MEDS: AZITHROMYCIN 250 MG TABLET 500 MG PO (21:39)
[2024-07-03] MEDS: INSULIN GLARGINE (*BKC) 100 UNITS/ML 60 UNITS SUB-Q (21:39)
[2024-07-03] MEDS: ATORVASTATIN 20 MG TABLET PO (21:39)
[2024-07-03] MEDS: methocarbamoL 750 MG TABLET PO (21:39)
[2024-07-03] MEDS: INSULIN ASPART (*BKC) 100 UNITS/ML 12 UNITS SUB-Q (21:40)
[2024-07-03 22:14] LABS: Glucose Point of Care 400 mg/dl (65-105)
[2024-07-04] VITALS (15 sets, daily range): BP systolic 135–148; BP diastolic 56–63; PULSE 55–75; RESP 18–20; TEMP 36.1–36.6; O2SAT 96–100
[2024-07-04 00:07] LABS: Glucose Point of Care 374 mg/dl (65-105)
[2024-07-04] MEDS: methylPREDNISolone SOD SUCC 125 MG VIAL 60 MG IV PUSH ×4 (00:09→17:31)
[2024-07-04] MEDS: INSULIN ASPART (*BKC) 100 UNITS/ML 12 UNITS SUB-Q (00:09)
[2024-07-04] MEDS: cefTRIAXone 2 GM/NS 100 ML 2 GM/100 ML BAG IVPB (03:46)
[2024-07-04 03:53] LABS: Glucose Point of Care 206 mg/dl (65-105)
[2024-07-04] MEDS: IPRATROPIUM 0.5 MG/ALBUTEROL SULFATE 2.5 MG AMPUL.NEB 3 ML INHALATION ×3 (06:17→20:02)
--- NOTE | 2024-07-04 07:17 | P.PNIM_ITS ---
Progress Note: A&P Assessment and Plan (1) Chronic respiratory failure with hypoxia, on home oxygen therapy: Code(s): J96.11 - Chronic respiratory failure with hypoxia; Z99.81 - Dependence on supplemental oxygen Status: Acute Assessment and Plan: * likely due to COPD exacerbation verses asthma verses bronchitis /bronchospasm * patient has no history of smoking * wears 2 L at home at baseline currently on 3 L * continue to wean O2 for a sat greater than 92% * chest x-ray was negative * continue steroids * continue DuoNebs * continue Mucinex * start Flonase * will start Singulair and Claritin * Will get ApneaLink tonight as she has had some confusion this morning when waking up * continue azithromycin (2) Asthma with COPD with exacerbation: Code(s): J44.1 - Chronic obstructive pulmonary disease with (acute) exacerbation; J45.901 - Unspecified asthma with (acute) exacerbation Status: Acute Assessment and Plan: see above plan of care (3) UTI (urinary tract infection): Code(s): N39.0 - Urinary tract infection, site not specified Status: Acute Assessment and Plan: * UA showed 2+ leukocytes 3-5 urine RBC, to 20 urine RBC. 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 Status: Acute Assessment and Plan: had blood sugar ranging 300s to 500 initially, not in DKA, pH normal * Blood sugars ranging 181-350 * Hgb A1C 7.5 on 04/24/2022 * will repeat hemoglobin A1c today * Accu checks AC/HS * high-dose SSI ordered * Lantus increased to 60 units at HS * Will add mealtime replacement of 4 units with meals * hypoglycemic protocol in place * Diabetic diet ordered * glimepiride and Januvia on hold * Patient is on steroids Time Spent With Patient Time with patient: Greater than 35 minutes Subjective Date/time seen: 07/04/24 07:17 Interval history: interval history: is a 78-year-old female who presented to the hospital on 07/02/2024 with shortness of Breath with COPD exacerbation, UTI and uncontrolled diabetes subjective: patient reporting productive cough with green thick sputum, shortness of breath, wheezing. she is currently on 2 L nasal cannula. long-acting Insulin increased yesterday patient 10 units, blood sugars between 400 - 200, basal dose increased by 2 units, patient is on steroids Review of Systems Review of Systems: All systems reviewed & are unremarkable except as noted in HPI and below Constitutional: Constitutional: Reports as per HPI and Reports no additional constitutional complaints Eyes: Eyes: Reports as per HPI and Reports no additional eye complaints ENT: Reports system reviewed and no additional complaints, except as documented and Reports as per HPI Cardiovascular: Cardiovascular: Reports as per HPI and Reports no additional cardiovascular complaints Respiratory: Respiratory: Reports as per HPI and Reports no additional respiratory complaints Gastrointestinal: Gastrointestinal: Reports as per HPI and Reports no additional gastrointestinal complaints Genitourinary: Genitourinary: Reports no additional female genitourinary complaints and Reports as per HPI Musculoskeletal: Musculoskeletal: Reports no additional musculoskeletal complaints and Reports as per HPI Integumentary/Breasts: Skin/Breast: Reports system reviewed and no additional complaints, except as docu and Reports as per HPI Neurologic: Reports system reviewed and no additional complaints, except as documented and Reports as per HPI Psychiatric: Psychiatric: Reports no additional psychiatric complaints and Reports as per HPI Exam Narrative: General: In no acute distress, well nourished Head: atraumatic, no encephalopathy Eyes: PERRLA, sclera clear ENT: moist mucous membranes, nasal passages clear Neck: supple, no JVD, no adenopathy, trachea midline Cardiac: Normal S1 and S2. No murmur, gallops or friction rubs, peripheral pulses intact. Respiratory: Lungs with rhonchi and wheezing throughout all lung maria, currently on 3 L nasal cannula, productive tight cough Gastrointestinal: soft, non-distended, non-tender, normoactive bowel sounds. : voiding without difficulty. Extremities: moves all extremities well, no edema Skin: clean, dry, intact. No wounds or lesions. Neuro: Alert and oriented x4, cranial nerves intact, no neuro deficits. Psych: confused at times, interactive Const: General: comfortable, no acute distress, well developed, alert, awake and average body habitus Nutritional Appearance: average body habitus Orientation/consciousness: patient oriented x3 HENMT: Head: normal to inspection, normocephalic and atraumatic Ears: hearing grossly normal bilaterally Face/Nose/Sinus: normal facial exam Face and sinus: normal facial exam Eyes: General: appearance normal, both eyes and all related structures Pupils: Equal, round and reactive pupils present EOM: EOMs intact bilaterally Neck: Neck: full ROM, no lymphadenopathy and no JVD Thyroid: thyroid normal Lymphatic: no lymphadenopathy noted Resp: Effort & Inspection: able to speak in complete sentences and tachypneic Auscultation: wheezes and diminished lung sounds Cardio: Jugular venous distension: no JVD Rate: regular rate Rhythm: regular rhythm Heart sounds: S1 normal heart sound present and S2 normal heart sound present : General: Yes deferred Skin: Rashes: no rashes Wounds: no wounds Neuro: General: patient oriented x3 and CN's II-XI intact bilaterally Cranial nerves: Yes CN's II-XII intact bilaterally and Yes Equal, round and reactive pupils present Cognition (Neuro): normal cognition Speech: normal speech Gait exam (Neuro): Normal gait present Motor exam (neuro): 5/5 motor strength present throughout Extrem: General: normal to inspection, full ROM, no joint enlargement and no pedal edema Objective Data Vital Signs Vital Signs: Vital Signs - 24 hr 07/03/24 07:45 07/03/24 07:45 07/03/24 07:54 Temperature Pulse Rate 55 L 54 L Respiratory Rate 20 20 Blood Pressure Pulse Oximetry 98 Oxygen Delivery Nasal Cannula Oxygen Flow Rate 3 07/03/24 09:10 07/03/24 13:08 07/03/24 13:23 Temperature Pulse Rate 60 52 L 50 L Respiratory Rate 20 20 Blood Pressure Pulse Oximetry Oxygen Delivery Oxygen Flow Rate 07/03/24 09:10 07/03/24 14:00 07/03/24 20:38 Temperature 98.5 F 97.8 F Pulse Rate 49 L 80 Respiratory Rate 16 18 Blood Pressure 123/65 127/72 Pulse Oximetry 100 98 97 Oxygen Delivery Nasal Cannula Oxygen Flow Rate 3 07/03/24 21:38 07/03/24 21:50 07/03/24 21:51 Temperature Pulse Rate 80 54 L Respiratory Rate 20 Blood Pressure Pulse Oximetry 97 Oxygen Delivery Nasal Cannula Oxygen Flow Rate 2 07/03/24 22:00 07/03/24 21:20 07/04/24 05:15 Temperature 97.3 F L Pulse Rate 56 L 63 Respiratory Rate 20 18 Blood Pressure 148/56 H Pulse Oximetry 97 97 Oxygen Delivery Nasal Cannula Oxygen Flow Rate 2 07/04/24 06:17 07/04/24 06:25 Temperature Pulse Rate 55 L 57 L Respiratory Rate 20 20 Blood Pressure Pulse Oximetry Oxygen Delivery Oxygen Flow Rate Intake/Output Intake/Output: Intake & Output 07/01/24 07/02/24 07/03/24 07/04/24 23:59 23:59 23:59 23:59 Intake Total 1250 1060 340 Output Total 300 Balance 1250 760 340 Meds/Results Medications: Active Medications Generic Name Dose Route Start Last Admin Trade Name Freq PRN Reason Stop Dose Admin Acetaminophen 650 mg 07/03/24 10:38 07/03/24 11:00 Acetaminophen 325 Mg Tablet PO 650 mg Q6H PRN Administration Mild Pain (1-3) or Fever Albuterol/Ipratropium 3 ml 07/03/24 02:00 07/04/24 06:17 Ipratropium 0.5 Mg/Albuterol Sulfate 2.5 Mg Ampul.Neb 3 Ml INHALATION 3 ml Q6HRT SADI Administration Albuterol/Ipratropium 3 ml 07/03/24 13:58 Ipratropium 0.5 Mg/Albuterol Sulfate 2.5 Mg Ampul.Neb 3 Ml INHALATION Q6HRT PRN Wheezing/SOB Alprazolam 1 mg 07/03/24 09:00 07/03/24 17:27 Alprazolam (*Crx) 0.5 Mg Tablet PO 1 mg BID SADI Administration Alprazolam 0.75 mg 07/03/24 21:00 07/03/24 21:38 Alprazolam (*Crx) 0.25 Mg Tablet PO 0.75 mg HS SADI Administration Aspirin 81 mg 07/03/24 09:00 07/03/24 09:07 Aspirin 81 Mg Enteric Tablet PO 81 mg DAILY SADI Administration Atorvastatin Calcium 20 mg 07/03/24 21:00 07/03/24 21:39 Atorvastatin 20 Mg Tablet PO 20 mg HS SADI Administration Azithromycin 500 mg 07/03/24 21:00 07/03/24 21:39 Azithromycin 250 Mg Tablet PO 07/06/24 21:01 500 mg DAILY@2100 SADI Administration Buspirone HCl 20 mg 07/03/24 09:00 07/03/24 17:27 Buspirone Hcl 10 Mg Tablet PO 20 mg TID SADI Administration Carvedilol 25 mg 07/03/24 09:00 07/03/24 21:38 Carvedilol 25 Mg Tablet PO 25 mg Q12HR SADI Administration Dextrose 12.5 gm 07/02/24 23:29 Dextrose 50% 25 Gm/50 Ml Syringe IV PUSH PRN PRN Hypoglycemia Protocol Donepezil HCl 10 mg 07/03/24 09:00 07/03/24 09:07 Donepezil Hcl 5 Mg Tablet PO 10 mg DAILY SADI Administration Enoxaparin Sodium 40 mg 07/04/24 09:00 Enoxaparin 40 Mg/0.4 Ml Syringe SUB-Q DAILY SADI Fluticasone/Umeclidinium/Vilanterol 1 puff 07/03/24 08:00 07/03/24 07:43 Fluticasone/Umeclidin/Vilanter 100-62.5-25 Mcg Ellipta INHALATION 1 puff DAILYRT SADI Administration Glucose 15 gm 07/02/24 23:29 Glucose Oral Gel 15 Gm Of Glucse In 37.5 Gm Tube PO PRN PRN Hypoglycemia Protocol Guaifenesin 600 mg 07/03/24 09:00 07/03/24 21:39 Guaifenesin 12 Hr 600 Mg Tabcr PO 600 mg Q12HR SADI Administration Guaifenesin/Dextromethorphan 10 ml 07/03/24 01:31 Guaifenesin/Dextromethorphan 10 Ml Udc PO Q4H PRN Cough Dextrose 1,000 mls @ 100 mls/hr 07/02/24 23:29 Dextrose 5% 1,000 Ml IVPB PRN PRN Hypoglycemia Protocol Ceftriaxone Sodium 2 gm in 100 mls @ 200 mls/hr 07/03/24 04:00 07/04/24 04:16 Rocephin 2 Gm/Ns 100 Ml IVPB Infused Q24H SADI Infusion Insulin Aspart 4 - 8 units 07/03/24 08:00 07/03/24 17:26 Insulin Aspart (*Bkc) 100 Units/Ml SUB-Q 5 units TIDWM SADI Administration Protocol Insulin Aspart 4 units 07/03/24 17:00 07/03/24 17:26 Insulin Aspart (*Bkc) 100 Units/Ml 0.05 units/kg (4 units) 4 units SUB-Q Administration TIDWM [facility] Insulin Glargine 60 units 07/03/24 21:00 07/03/24 21:39 Insulin Glargine (*Bkc) 100 Units/Ml SUB-Q 60 units HS SADI Administration Loratadine 10 mg 07/04/24 09:00 Loratadine 10 Mg Tablet PO QAM SADI Methocarbamol 750 mg 07/03/24 01:31 07/03/24 21:39 Methocarbamol 750 Mg Tablet PO 750 mg TID PRN Administration Muscle Spasm Methylprednisolone Sodium Succinate 60 mg 07/03/24 00:00 07/04/24 05:09 Methylprednisolone Sod Succ 125 Mg Vial IV PUSH 60 mg Q6HR SADI Administration Montelukast Sodium 10 mg 07/03/24 21:00 07/03/24 21:38 Montelukast Sodium 10 Mg Tablet PO 10 mg HS SADI Administration Pantoprazole Sodium 40 mg 07/03/24 09:00 07/03/24 09:07 Pantoprazole 40 Mg Tablet PO 40 mg DAILY SADI Administration Paroxetine HCl 60 mg 07/03/24 09:00 07/03/24 09:06 Paroxetine 20 Mg Tablet PO 60 mg DAILY SADI Administration Polyethylene Glycol 17 gm 07/03/24 01:31 Polyethylene Glycol 3350 17 Gm Powd.Pack PO BID PRN Constipation Tramadol HCl 50 mg 07/03/24 01:31 07/03/24 21:36 Tramadol Hcl (*Crx) 50 Mg Tablet PO 50 mg Q6H PRN Administration Pain (Scale Score 4-6) Radiology Results: ITS Impressions Chest X-Ray 07/02/24 13:57 IMPRESSION: 1. No acute cardiopulmonary disease. Head CT 07/03/24 09:04 IMPRESSION: 1. 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 No acute intracranial process. 2. Age related changes including mild to moderate diffuse volume loss and moderate scattered white matter hypoattenuation consistent with chronic small vessel ischemic disease. Labs Labs: Laboratory Results - last 24 hr 07/03/24 07/03/24 07/03/24 08:32 09:20 11:58 WBC 15.0 H RBC 4.15 L Hgb 11.8 L Hct 35.7 L MCV 86.0 MCH 28.4 MCHC 33.1 RDW 13.6 Plt Count 262 MPV 10.7 H Sodium 135 L Potassium 3.6 Chloride 100 Carbon Dioxide 21 L Anion Gap 14 H BUN 27 H Creatinine 1.20 H Estim Creat Clear Calc 35 Estimated GFR 44 L Glucose 277 H POC Capillary Glucose 311 H 181 H Hemoglobin A1c Calcium 9.0 Total Bilirubin 0.4 AST 25 ALT 23 Alkaline Phosphatase 96 Total Protein 8.0 Albumin 4.2 07/03/24 07/03/24 07/03/24 12:15 16:56 20:42 WBC RBC Hgb Hct MCV MCH MCHC RDW Plt Count MPV Sodium Potassium Chloride Carbon Dioxide Anion Gap BUN Creatinine Estim Creat Clear Calc Estimated GFR Glucose POC Capillary Glucose 267 H 400 H Hemoglobin A1c 7.8 H Calcium Total Bilirubin AST ALT Alkaline Phosphatase Total Protein Albumin 07/04/24 07/04/24 00:01 03:43 WBC RBC Hgb Hct MCV MCH MCHC RDW Plt Count MPV Sodium Potassium Chloride Carbon Dioxide Anion Gap BUN Creatinine Estim Creat Clear Calc Estimated GFR Glucose POC Capillary Glucose 374 H 206 H Hemoglobin A1c Calcium Total Bilirubin AST ALT Alkaline Phosphatase Total Protein Albumin Quality VTE Prophylaxis VTE prophylaxis: pharmacologic ordered Hospitalist MIPS Advance Care Plan I have confirmed that the patient's Advanced Care Plan is present, code status is documented, or surrogate decision maker is listed in patient medical record.: Yes Medication Reconciliation I have utilized all available resources to obtain, update and review the patients current medications (includes all prescriptions, OTC, herbals, cannabis, and nutritional supplements).: Yes
[2024-07-04] MEDS: FLUTICASONE/UMECLIDIN/VILANTER 100-62.5-25 MCG ELLIPTA 1 PUFF INHALATION (08:09)
[2024-07-04 08:26] LABS: Glucose Point of Care 208 mg/dl (65-105)
[2024-07-04 08:31] LABS: Basophils Percent Auto 0.2 % (0.2-1.2); Hematocrit 33.8 % (37.0-47.0); Hemoglobin 10.9 g/dL (12.0-15.0); Immature Granulocyte Percent A 0.5 % (0-0.5); Lymphocytes Absolute Auto 1.42 K/mm3 (0.9-3.2); Lymphocytes Percent Auto 7.5 % (18.3-44.2); Mean Corpuscular HGB Conc 32.2 g/dl (32-36); Mean Corpuscular Hemoglobin 28.2 pg (26-34); Mean Corpuscular Volume 87.6 fl (80-100); Mean Platelet Volume 10.8 fl (7.4-10.4); Monocytes Absolute Auto 0.3 K/mm3 (0.1-0.6); Monocytes Percent Auto 1.5 % (2.6-8.5); Neutrophils Absolute Auto 17.1 K/mm3 (1.3-6.7); Neutrophils Percent Auto 90.3 % (45.5-73.1); Platelet Count Result 235 k/mm3 (150-375); Red Blood Count 3.86 M/mm3 (4.2-5.4); Red Cell Distribution Width 13.9 % (11.5-14.5); White Blood Count 18.9 K/mm3 (4.5-10.0)
[2024-07-04 08:46] LABS: Alanine Aminotransferase 18 U/L (6-35); Albumin Level 3.6 g/dL (3.5-5.1); Alkaline Phosphatase 88 U/L (38-126); Anion Gap 6 mmol/L (4-12); Aspartate Amino Transferase 21 U/L (14-36); Bilirubin,Total 0.4 mg/dL (0.2-1.3); Blood Urea Nitrogen 32 mg/dL (7-17); Calcium 9.3 mg/dL (8.4-10.2); Carbon Dioxide 31 mmol/L (22-30); Chloride 104 mmol/L (98-107); Estimated CRCL calculation 38 ml/min; Estimated Glomerular Filt Rate 48; Glucose 191 mg/dL (65-110); Potassium 4.6 mmol/L (3.4-5.0); Sodium 141 mmol/L (137-145)
[2024-07-04] MEDS: INSULIN ASPART (*BKC) 100 UNITS/ML 6 UNITS SUB-Q ×3 (08:55→17:24)
[2024-07-04] MEDS: INSULIN ASPART (*BKC) 100 UNITS/ML SUB-Q ×3 (08:55→17:24)
[2024-07-04] MEDS: ASPIRIN 81 MG ENTERIC TABLET PO (08:56)
[2024-07-04] MEDS: DONEPEZIL HCL 5 MG TABLET 10 MG PO (08:56)
[2024-07-04] MEDS: PARoxetine 20 MG TABLET 60 MG PO (08:56)
[2024-07-04] MEDS: LORATADINE 10 MG TABLET PO (08:56)
[2024-07-04] MEDS: busPIRone HCL 10 MG TABLET 20 MG PO ×3 (08:56→17:24)
[2024-07-04] MEDS: ALPRAZolam (*CRX) 0.5 MG TABLET 1 MG PO ×2 (08:58→17:24)
[2024-07-04] MEDS: guaiFENesin 12 HR 600 MG TABCR PO ×2 (08:59→21:10)
[2024-07-04] MEDS: PANTOPRAZOLE 40 MG TABLET PO (08:59)
[2024-07-04] MEDS: carvediloL 25 MG TABLET PO ×2 (08:59→21:10)
[2024-07-04] MEDS: ENOXAPARIN 40 MG/0.4 ML SYRINGE SUB-Q (08:59)
[2024-07-04] MEDS: ACETAMINOPHEN 325 MG TABLET 650 MG PO (09:27)
[2024-07-04 12:09] LABS: Glucose Point of Care 209 mg/dl (65-105)
[2024-07-04] MEDS: SALINE 0.65% NAS SOLN 44 ML BTL 1 SPRAY NASAL (15:00)
[2024-07-04] MEDS: FUROSEMIDE 20 MG TABLET PO (15:36)
[2024-07-04 16:51] LABS: Glucose Point of Care 219 mg/dl (65-105)
[2024-07-04 20:24] LABS: Glucose Point of Care 244 mg/dl (65-105)
[2024-07-04] MEDS: AZITHROMYCIN 250 MG TABLET 500 MG PO (21:10)
[2024-07-04] MEDS: ATORVASTATIN 20 MG TABLET PO (21:10)
[2024-07-04] MEDS: MONTELUKAST SODIUM 10 MG TABLET PO (21:10)
[2024-07-04] MEDS: ALPRAZolam (*CRX) 0.25 MG TABLET 0.75 MG PO (21:10)
[2024-07-04] MEDS: INSULIN GLARGINE (*BKC) 100 UNITS/ML 60 UNITS SUB-Q (21:11)
[2024-07-04] MEDS: methocarbamoL 750 MG TABLET PO (21:18)
[2024-07-04] MEDS: traMADol HCL (*CRX) 50 MG TABLET PO (21:18)
[2024-07-05] VITALS (14 sets, daily range): BP systolic 152–160; BP diastolic 65–74; PULSE 60–72; RESP 18–20; TEMP 36.4–36.6; O2SAT 97–100
[2024-07-05] MEDS: methylPREDNISolone SOD SUCC 125 MG VIAL 60 MG IV PUSH ×2 (00:46→05:29)
[2024-07-05] MEDS: IPRATROPIUM 0.5 MG/ALBUTEROL SULFATE 2.5 MG AMPUL.NEB 3 ML INHALATION ×4 (01:47→21:14)
[2024-07-05] MEDS: cefTRIAXone 2 GM/NS 100 ML 2 GM/100 ML BAG IVPB (04:51)
--- NOTE | 2024-07-05 07:23 | P.PNIM_ITS ---
Progress Note: A&P Assessment and Plan (1) Chronic respiratory failure with hypoxia, on home oxygen therapy: Code(s): J96.11 - Chronic respiratory failure with hypoxia; Z99.81 - Dependence on supplemental oxygen Status: Acute Assessment and Plan: * likely due to COPD exacerbation verses asthma verses bronchitis /bronchospasm * patient has no history of smoking * wears 2 L at home at baseline currently on 2 L * continue to wean O2 for a sat greater than 92% * chest x-ray was negative Transition to oral steroids * continue DuoNebs * continue Mucinex Continue Flonase Continue Singulair and Claritin * Will get ApneaLink tonight as she has had some confusion this morning when waking up * continue azithromycin (2) Asthma with COPD with exacerbation: Code(s): J44.1 - Chronic obstructive pulmonary disease with (acute) exacerbation; J45.901 - Unspecified asthma with (acute) exacerbation Status: Acute Assessment and Plan: see above plan of care (3) UTI (urinary tract infection): Code(s): N39.0 - Urinary tract infection, site not specified Status: Acute Assessment and Plan: * UA showed 2+ leukocytes 3-5 urine RBC, to 20 urine RBC. * Urine culture obtained negative for UTI Completed Rocephin (4) Insulin dependent type 2 diabetes mellitus: Code(s): E11.9 - Type 2 diabetes mellitus without complications; Z79.4 - halfway (current) use of insulin Status: Acute Assessment and Plan: had blood sugar ranging 300s to 500 initially, not in DKA, pH normal * Blood sugars ranging 181-350 * Hgb A1C 7.5 on 04/24/2022 * will repeat hemoglobin A1c today * Accu checks AC/HS * high-dose SSI ordered * Lantus increased to 60 units at HS * Will add mealtime replacement of 4 units with meals * hypoglycemic protocol in place * Diabetic diet ordered * glimepiride and Januvia on hold * Patient is on steroids (5) Congestive heart failure: Code(s): I50.9 - Heart failure, unspecified Status: Acute Assessment and Plan: Restarted home Lasix Echocardiogram pending Time Spent With Patient Time with patient: Greater than 35 minutes Subjective Date/time seen: 07/05/24 07:23 Interval history: interval history: is a 78-year-old female who presented to the hospital on 07/02/2024 with shortness of Breath with COPD exacerbation, UTI and uncontrolled diabetes subjective: shortness of breath, wheezing improved since yesterday. she is currently on 2 L nasal cannula. blood sugars between 400 - 200 yesterday, basal dose increased by 2 units, patient is on IV steroids, blood sugars and 240 today, p.o. steroids ordered for tomorrow Patient restarted on home Lasix yesterday. Review of Systems Review of Systems: All systems reviewed & are unremarkable except as noted in HPI and below Constitutional: Constitutional: Reports as per HPI and Reports no additional constitutional complaints Eyes: Eyes: Reports as per HPI and Reports no additional eye complaints ENT: Reports system reviewed and no additional complaints, except as docum ented and Reports as per HPI Cardiovascular: Cardiovascular: Reports as per HPI and Reports no additional cardiovascular complaints Respiratory: Respiratory: Reports as per HPI and Reports no additional respiratory complaints Gastrointestinal: Gastrointestinal: Reports as per HPI and Reports no additional gastrointestinal complaints Genitourinary: Genitourinary: Reports no additional female genitourinary complaints and Reports as per HPI Musculoskeletal: Musculoskeletal: Reports no additional musculoskeletal complaints and Reports as per HPI Integumentary/Breasts: Skin/Breast: Reports system reviewed and no additional complaints, except as docu and Reports as per HPI Neurologic: Reports system reviewed and no additional complaints, except as documented and Reports as per HPI Psychiatric: Psychiatric: Reports no additional psychiatric complaints and Reports as per HPI Exam Narrative: General: In no acute distress, well nourished Head: atraumatic, no encephalopathy Eyes: PERRLA, sclera clear ENT: moist mucous membranes, nasal passages clear Neck: supple, no JVD, no adenopathy, trachea midline Cardiac: Normal S1 and S2. No murmur, gallops or friction rubs, peripheral pulses intact. Respiratory: Lungs with expiratory wheezing throughout all lung maria, currently on 2 L nasal cannula, productive tight cough Gastrointestinal: soft, non-distended, non-tender, normoactive bowel sounds. : voiding without difficulty. Extremities: moves all extremities well, no edema Skin: clean, dry, intact. No wounds or lesions. Neuro: Alert and oriented x4, cranial nerves intact, no neuro deficits. Psych: interactive Const: General: comfortable, no acute distress, well developed, alert, awake and average body habitus Nutritional Appearance: average body habitus Orientation/consciousness: patient oriented x3 HENMT: Head: normal to inspection, normocephalic and atraumatic Ears: hearing grossly normal bilaterally Face/Nose/Sinus: normal facial exam Face and sinus: normal facial exam Eyes: General: appearance normal, both eyes and all related structures Pupils: Equal, round and reactive pupils present EOM: EOMs intact bilaterally Neck: Neck: full ROM, no lymphadenopathy and no JVD Thyroid: thyroid normal Lymphatic: no lymphadenopathy noted Resp: Effort & Inspection: able to speak in complete sentences and tachypneic Auscultation: wheezes and diminished lung sounds Cardio: Jugular venous distension: no JVD Rate: regular rate Rhythm: regular rhythm Heart sounds: S1 normal heart sound present and S2 normal heart sound present : General: Yes deferred Skin: Rashes: no rashes Wounds: no wounds Neuro: General: patient oriented x3 and CN's II-XI intact bilaterally Cranial nerves: Yes CN's II-XII intact bilaterally and Yes Equal, round and reactive pupils present Cognition (Neuro): normal cognition Speech: normal speech Gait exam (Neuro): Normal gait present Motor exam (neuro): 5/5 motor strength present throughout Extrem: General: normal to inspection, full ROM, no joint enlargement and no pedal edema Objective Data Vital Signs Vital Signs: Vital Signs - 24 hr 07/04/24 08:10 07/04/24 08:10 07/04/24 08:59 Temperature Pulse Rate 58 L 75 Respiratory Rate 20 Blood Pressure Pulse Oximetry 96 Oxygen Delivery Nasal Cannula Oxygen Flow Rate 2 Fraction of Inspired Oxygen 07/04/24 09:00 07/04/24 14:25 07/04/24 14:25 Temperature Pulse Rate 66 Respiratory Rate 20 Blood Pressure Pulse Oximetry 96 100 Oxygen Delivery Nasal Cannula Nasal Cannula Oxygen Flow Rate 2 2 Fraction of Inspired Oxygen 07/04/24 14:31 07/04/24 14:00 07/04/24 20:14 Temperature 97.8 F Pulse Rate 65 64 62 Respiratory Rate 20 18 20 Blood Pressure 147/61 H Pulse Oximetry 97 Oxygen Delivery Oxygen Flow Rate Fraction of Inspired Oxygen 07/04/24 20:20 07/04/24 20:24 07/04/24 21:10 Temperature Pulse Rate 62 63 74 Respiratory Rate 20 Blood Pressure Pulse Oximetry 99 Oxygen Delivery Nasal Cannula Oxygen Flow Rate 2 Fraction of Inspired Oxygen 07/04/24 21:30 07/04/24 20:00 07/05/24 01:47 Temperature 97 F L Pulse Rate 68 62 Respiratory Rate 20 20 Blood Pressure 135/63 Pulse Oximetry 99 100 Oxygen Delivery Nasal Cannula Oxygen Flow Rate 2 Fraction of Inspired Oxygen 07/05/24 01:56 07/05/24 06:00 Temperature 97.5 F L Pulse Rate 62 71 Respiratory Rate 20 20 Blood Pressure 153/67 H Pulse Oximetry 99 Oxygen Delivery Oxygen Flow Rate Fraction of Inspired Oxygen Intake/Output Intake/Output: Intake & Output 07/02/24 07/03/24 07/04/24 07/05/24 23:59 23:59 23:59 23:59 Intake Total 1250 1060 1540 450 Output Total 300 Balance 7335 159 6781 450 Meds/Results Medications: Active Medications Generic Name Dose Route Start Last Admin Trade Name Freq PRN Reason Stop Dose Admin Acetaminophen 650 mg 07/03/24 10:38 07/04/24 09:27 Acetaminophen 325 Mg Tablet PO 650 mg Q6H PRN Administration Mild Pain (1-3) or Fever Albuterol/Ipratropium 3 ml 07/03/24 02:00 07/05/24 01:47 Ipratropium 0.5 Mg/Albuterol Sulfate 2.5 Mg Ampul.Neb 3 Ml INHALATION 3 ml Q6HRT SADI Administration Albuterol/Ipratropium 3 ml 07/03/24 13:58 Ipratropium 0.5 Mg/Albuterol Sulfate 2.5 Mg Ampul.Neb 3 Ml INHALATION Q6HRT PRN Wheezing/SOB Alprazolam 1 mg 07/03/24 09:00 07/04/24 17:24 Alprazolam (*Crx) 0.5 Mg Tablet PO 1 mg BID SADI Administration Alprazolam 0.75 mg 07/03/24 21:00 07/04/24 21:10 Alprazolam (*Crx) 0.25 Mg Tablet PO 0.75 mg HS SADI Administration Aspirin 81 mg 07/03/24 09:00 07/04/24 08:56 Aspirin 81 Mg Enteric Tablet PO 81 mg DAILY SADI Administration Atorvastatin Calcium 20 mg 07/03/24 21:00 07/04/24 21:10 Atorvastatin 20 Mg Tablet PO 20 mg HS SADI Administration Azithromycin 500 mg 07/03/24 21:00 07/04/24 21:10 Azithromycin 250 Mg Tablet PO 07/06/24 21:01 500 mg DAILY@2100 SADI Administration Buspirone HCl 20 mg 07/03/24 09:00 07/04/24 17:24 Buspirone Hcl 10 Mg Tablet PO 20 mg TID SADI Administration Carvedilol 25 mg 07/03/24 09:00 07/04/24 21:10 Carvedilol 25 Mg Tablet PO 25 mg Q12HR SADI Administration Dextrose 12.5 gm 07/02/24 23:29 Dextrose 50% 25 Gm/50 Ml Syringe IV PUSH PRN PRN Hypoglycemia Protocol Donepezil HCl 10 mg 07/03/24 09:00 07/04/24 08:56 Donepezil Hcl 5 Mg Tablet PO 10 mg DAILY SADI Administration Enoxaparin Sodium 40 mg 07/04/24 09:00 07/04/24 08:59 Enoxaparin 40 Mg/0.4 Ml Syringe SUB-Q 40 mg DAILY SADI Administration Fluticasone/Umeclidinium/Vilanterol 1 puff 07/03/24 08:00 07/04/24 08:09 Fluticasone/Umeclidin/Vilanter 100-62.5-25 Mcg Ellipta INHALATION 1 puff DAILYRT SADI Administration Furosemide 20 mg 07/04/24 13:15 07/04/24 15:36 Furosemide 20 Mg Tablet PO 20 mg QAM SADI Administration Glucose 15 gm 07/02/24 23:29 Glucose Oral Gel 15 Gm Of Glucse In 37.5 Gm Tube PO PRN PRN Hypoglycemia Protocol Guaifenesin 600 mg 07/03/24 09:00 07/04/24 21:10 Guaifenesin 12 Hr 600 Mg Tabcr PO 600 mg Q12HR SADI Administration Guaifenesin/Dextromethorphan 10 ml 07/03/24 01:31 Guaifenesin/Dextromethorphan 10 Ml Udc PO Q4H PRN Cough Dextrose 1,000 mls @ 100 mls/hr 07/02/24 23:29 Dextrose 5% 1,000 Ml IVPB PRN PRN Hypoglycemia Protocol Ceftriaxone Sodium 2 gm in 100 mls @ 200 mls/hr 07/03/24 04:00 07/05/24 05:21 Rocephin 2 Gm/Ns 100 Ml IVPB Infused Q24H SADI Infusion Insulin Aspart 4 - 8 units 07/03/24 08:00 07/04/24 17:24 Insulin Aspart (*Bkc) 100 Units/Ml SUB-Q 4 units TIDWM SADI Administration Protocol Insulin Aspart 6 units 07/04/24 08:00 07/04/24 17:24 Insulin Aspart (*Bkc) 100 Units/Ml SUB-Q 6 units TIDWM SADI Administration Insulin Glargine 60 units 07/03/24 21:00 07/04/24 21:11 Insulin Glargine (*Bkc) 100 Units/Ml SUB-Q 60 units HS SADI Administration Loratadine 10 mg 07/04/24 09:00 07/04/24 08:56 Loratadine 10 Mg Tablet PO 10 mg QAM SADI Administration Methocarbamol 750 mg 07/03/24 01:31 07/04/24 21:18 Methocarbamol 750 Mg Tablet PO 750 mg TID PRN Administration Muscle Spasm Methylprednisolone Sodium Succinate 60 mg 07/03/24 00:00 07/05/24 05:29 Methylprednisolone Sod Succ 125 Mg Vial IV PUSH 60 mg Q6HR SADI Administration Montelukast Sodium 10 mg 07/03/24 21:00 07/04/24 21:10 Montelukast Sodium 10 Mg Tablet PO 10 mg HS SADI Administration Pantoprazole Sodium 40 mg 07/03/24 09:00 07/04/24 08:59 Pantoprazole 40 Mg Tablet PO 40 mg DAILY SADI Administration Paroxetine HCl 60 mg 07/03/24 09:00 07/04/24 08:56 Paroxetine 20 Mg Tablet PO 60 mg DAILY SADI Administration Polyethylene Glycol 17 gm 07/03/24 01:31 Polyethylene Glycol 3350 17 Gm Powd.Pack PO BID PRN Constipation Sodium Chloride 1 spray 07/04/24 15:32 07/04/24 15:00 Saline 0.65% Jonny Soln 44 Ml Btl NASAL 1 spray Q6HR PRN Administration Congestion Tramadol HCl 50 mg 07/03/24 01:31 07/04/24 21:18 Tramadol Hcl (*Crx) 50 Mg Tablet PO 50 mg Q6H PRN Administration Pain (Scale Score 4-6) Radiology Results: ITS Impressions Head CT 07/03/24 09:04 IMPRESSION: 1. 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 No acute intracranial process. 2. Age related changes including mild to moderate diffuse volume loss and moderate scattered white matter hypoattenuation consistent with chronic small vessel ischemic disease. Chest X-Ray 07/04/24 15:04 IMPRESSION: Slight atelectasis at the lung bases Labs Labs: Laboratory Results - last 24 hr 07/04/24 07/04/24 07/04/24 08:07 08:16 12:05 WBC 18.9 H RBC 3.86 L Hgb 10.9 L Hct 33.8 L MCV 87.6 MCH 28.2 MCHC 32.2 RDW 13.9 Plt Count 235 MPV 10.8 H Immature Gran % (Auto) 0.5 Neut % (Auto) 90.3 H Lymph % (Auto) 7.5 L [place] % (Auto) 1.5 L Eos % (Auto) 0.0 Baso % (Auto) 0.2 Lymph # (Auto) 1.42 [place] # (Auto) 0.3 Eos # (Auto) 0.0 Baso # (Auto) 0.0 Abs Immat Gran (auto) 0.10 H Absolute Neuts (auto) 17.1 H Absolute Nucleated RBC 0.000 Nucleated RBC % 0.0 Sodium 141 Potassium 4.6 Chloride 104 Carbon Dioxide 31 H Anion Gap 6 BUN 32 H Creatinine 1.10 H Estim Creat Clear Calc 38 Estimated GFR 48 L Glucose 191 H POC Capillary Glucose 208 H 209 H Calcium 9.3 Total Bilirubin 0.4 AST 21 ALT 18 Alkaline Phosphatase 88 Total Protein 7.0 Albumin 3.6 07/04/24 07/04/24 16:45 20:01 WBC RBC Hgb Hct MCV MCH MCHC RDW Plt Count MPV Immature Gran % (Auto) Neut % (Auto) Lymph % (Auto) [place] % (Auto) Eos % (Auto) Baso % (Auto) Lymph # (Auto) [place] # (Auto) Eos # (Auto) Baso # (Auto) Abs Immat Gran (auto) Absolute Neuts (auto) Absolute Nucleated RBC Nucleated RBC % Sodium Potassium Chloride Carbon Dioxide Anion Gap BUN Creatinine Estim Creat Clear Calc Estimated GFR Glucose POC Capillary Glucose 219 H 244 H Calcium Total Bilirubin AST ALT Alkaline Phosphatase Total Protein Albumin Quality VTE Prophylaxis VTE prophylaxis: pharmacologic ordered
[2024-07-05] MEDS: FLUTICASONE/UMECLIDIN/VILANTER 100-62.5-25 MCG ELLIPTA 1 PUFF INHALATION (07:43)
[2024-07-05 08:10] LABS: Glucose Point of Care 282 mg/dl (65-105)
[2024-07-05 08:23] LABS: Mean Corpuscular HGB Conc 32.4 g/dl (32-36); Mean Corpuscular Hemoglobin 28.6 pg (26-34); Mean Corpuscular Volume 88.3 fl (80-100); Mean Platelet Volume 10.9 fl (7.4-10.4); Platelet Count Result 235 k/mm3 (150-375); Red Blood Count 3.85 M/mm3 (4.2-5.4); White Blood Count 15.7 K/mm3 (4.5-10.0)
[2024-07-05] MEDS: ACETAMINOPHEN 325 MG TABLET 650 MG PO (08:26)
[2024-07-05] MEDS: DONEPEZIL HCL 5 MG TABLET 10 MG PO (08:26)
[2024-07-05] MEDS: LORATADINE 10 MG TABLET PO (08:27)
[2024-07-05] MEDS: PARoxetine 20 MG TABLET 60 MG PO (08:27)
[2024-07-05] MEDS: guaiFENesin 12 HR 600 MG TABCR PO ×2 (08:27→20:33)
[2024-07-05] MEDS: carvediloL 25 MG TABLET PO ×2 (08:27→20:32)
[2024-07-05] MEDS: ALPRAZolam (*CRX) 0.5 MG TABLET 1 MG PO ×2 (08:27→17:10)
[2024-07-05] MEDS: PANTOPRAZOLE 40 MG TABLET PO (08:28)
[2024-07-05] MEDS: busPIRone HCL 10 MG TABLET 20 MG PO ×3 (08:28→17:10)
[2024-07-05] MEDS: ASPIRIN 81 MG ENTERIC TABLET PO (08:28)
[2024-07-05] MEDS: FUROSEMIDE 20 MG TABLET PO (08:28)
[2024-07-05] MEDS: ENOXAPARIN 40 MG/0.4 ML SYRINGE SUB-Q (08:28)
[2024-07-05] MEDS: INSULIN ASPART (*BKC) 100 UNITS/ML 6 UNITS SUB-Q ×3 (08:29→17:11)
[2024-07-05] MEDS: INSULIN ASPART (*BKC) 100 UNITS/ML SUB-Q ×2 (08:29→12:32)
[2024-07-05] MEDS: SALINE 0.65% NAS SOLN 44 ML BTL 1 SPRAY NASAL (08:36)
[2024-07-05 08:39] LABS: Anion Gap 9 mmol/L (4-12); Blood Urea Nitrogen 36 mg/dL (7-17); Calcium 8.7 mg/dL (8.4-10.2); Carbon Dioxide 28 mmol/L (22-30); Chloride 101 mmol/L (98-107); Estimated CRCL calculation 32 ml/min; Estimated Glomerular Filt Rate 40; Glucose 262 mg/dL (65-110); Sodium 138 mmol/L (137-145)
[2024-07-05 11:48] LABS: Glucose Point of Care 296 mg/dl (65-105)
[2024-07-05] MEDS: BENZOCAINE/MENTHOL (*BKC) 18 EA LOZENGE 1 LOZENGE PO (14:50)
[2024-07-05 17:00] LABS: Glucose Point of Care 140 mg/dl (65-105)
[2024-07-05 20:09] LABS: Glucose Point of Care 201 mg/dl (65-105)
[2024-07-05] MEDS: ALPRAZolam (*CRX) 0.25 MG TABLET 0.75 MG PO (20:32)
[2024-07-05] MEDS: AZITHROMYCIN 250 MG TABLET 500 MG PO (20:32)
[2024-07-05] MEDS: traMADol HCL (*CRX) 50 MG TABLET PO (20:32)
[2024-07-05] MEDS: ATORVASTATIN 20 MG TABLET PO (20:32)
[2024-07-05] MEDS: methocarbamoL 750 MG TABLET PO (20:33)
[2024-07-05] MEDS: MONTELUKAST SODIUM 10 MG TABLET PO (20:33)
[2024-07-05] MEDS: INSULIN GLARGINE (*BKC) 100 UNITS/ML 60 UNITS SUB-Q (20:34)
[2024-07-06] VITALS (15 sets, daily range): BP systolic 123–168; BP diastolic 61–80; PULSE 59–73; RESP 16–20; TEMP 36.3–36.6; O2SAT 98–100
--- NOTE | 2024-07-06 | ECHO_ITS ---
Patient Info Name: Arabella Pike Age: 78 years : 1945 Gender: Female Ht: 63 in Wt: 178 lbs BSA: 1.92 m2 HR: 67 bpm BP: 168 / 76 mmHg Heart Rhythm: Sinus Rhythm Technical Quality: Good Exam Date: 07/06/2024 9:14 AM Exam Location: Echo Lab Patient Status: Inpatient Admit Date: 07/03/2024 Staff Ordering Physician: Reina Galeas APRN Administrative Assistant Front Desk: Roxi Wu RDCS Attending Provider: Renzo Sage MD Referring Physician: Gudelia OWENS; Exam Type: CA echo doppler color flow Study Info Indications - pul edema Complete two-dimensional, color flow and Doppler transthoracic echocardiogram is performed. Summary 1. Complete two-dimensional, color flow and Doppler transthoracic echocardiogram is performed. 2. The left ventricular size and systolic function is normal. The left ventricular ejection fraction is visually estimated to be 55-60%. 3. The right ventricle size is mildly dilated and systolic function is normal. Left Ventricle The left ventricular size and systolic function is normal. The left ventricular ejection fraction is visually estimated to be 55-60%. Right Ventricle The right ventricle size is mildly dilated and systolic function is normal. Left Atria The left atrium is mildly dilated. Right Atria The right atrium is normal in size. Atrial Septum The atrial septum appears visually intact. Aortic Valve The aortic valve is trileaflet and opens well. There is no aortic regurgitation. Pulmonic Valve The pulmonic valve is not well visualized. There is no color Doppler evidence of pulmonic valve regurgitation. Mitral Valve The mitral valve is normal. There is trace mitral regurgitation. Tricuspid Valve The tricuspid valve is normal. There is trace tricuspid regurgitation. Pericardium/Pleural There is no pericardial effusion in the visualized views. Prominent epicardial fat pad. Aorta The aortic root at the level of the sinus of Valsalva measures 3.3 cm in diameter. Left Ventricular Outflow Tract Name Value Normal LVOT 2D LVOT Diameter 1.7 cm LVOT Doppler LVOT Peak Gradient 4 mmHg LVOT Mean Gradient 2 mmHg LVOT VTI 28 cm LVOT VTI/AV VTI Ratio 0.7 LVOT Stroke Volume 65 ml LVOT CO 3.8 l/min LVOT CI 1.9 l/min/m2 Mitral Valve Name Value Normal MV Doppler MV Decel [place] 458 cm/s2 MV PHT 76 ms MV Area (PHT) 2.9 cm2 4.0-5.0 MV Diastolic Function MV E Peak Velocity 121 cm/s MV A Peak Velocity 116 cm/s MV E/A 1.0 MV Decel Time 263 ms MV Annular TDI MV E/e' (Septal) 18.3 <=8.0 MV E/e' (Lateral) 14.3 <=8.0 MV E/e' (Average) 16.3 Tricuspid Valve Name Value Normal TV Regurgitation Doppler TR Peak Velocity 212 cm/s TR Peak Gradient 18 mmHg Estimated PAP/RSVP RA Pressure 10 mmHg <=5 PA Systolic Pressure 28 mmHg <36 RV Systolic Pressure 28 mmHg <36 Aortic Valve Name Value Normal AV Doppler AV Peak Velocity 158 cm/s AV Peak Gradient 10 mmHg AV Mean Gradient 6 mmHg AV VTI 38 cm AV Area (Cont Eq VTI) 1.7 cm2 >=3.0 AV Area (Cont Eq Victorino) 36.7 cm2 AV Regurgitation 2D LVOT Area 2.3 cm2 Ventricles Name Value Normal LV Dimensions 2D/MM IVS Diastolic Thickness (2D) 1.0 cm 0.6-1.0 LVID Diastole (2D) 4.6 cm 3.8-5.2 LVIW Diastolic Thickness (2D) 1.1 cm 0.6-0.9 LVID Systole (2D) 3.2 cm 2.2-3.5 LVOT Diameter 1.7 cm LV Mass (2D Cubed) 177.41 g 67.00-162.00 LV Mass Index (2D Cubed) 92 g/m2 43-95 Relative Wall Thickness (2D) 0.48 LV Fractional Shortening/Ejection Fraction 2D/MM LV Fractional Shortening (2D) 32 % 27-45 LV EF (2D Teicholz) 60 % 54-74 LV Diastolic Volume (4C MOD) 100 ml LV EF (4C MOD) 71 % LV Diastolic Volume (2C MOD) 90 ml LV EF (2C MOD) 59 % LV Diastolic Volume (BP MOD) 99 ml 46-106 LV Diastolic Volume Index (BP MOD) 51 ml/m2 29-61 LV Systolic Volume (BP MOD) 33 ml 14-42 LV Systolic Volume Index (BP MOD) 17 ml/m2 8-24 LV EF (BP MOD) 67 % 54-74 LV Diastolic Length (4C) 8.2 cm LV Systolic Length (4C) 5.8 cm LV Stroke Volume (4C MOD) 71 ml Atria Name Value Normal LA Dimensions LA Volume (4C A-L) 59 ml LA Volume (BP A-L) 62 ml RA Dimensions RA Area (4C) 12.6 cm2 <=18.0 Report Signatures
[2024-07-06] MEDS: IPRATROPIUM 0.5 MG/ALBUTEROL SULFATE 2.5 MG AMPUL.NEB 3 ML INHALATION ×4 (02:59→20:07)
[2024-07-06 06:17] LABS: Hematocrit 33.2 % (37.0-47.0); Hemoglobin 10.8 g/dL (12.0-15.0); Mean Corpuscular HGB Conc 32.5 g/dl (32-36); Mean Corpuscular Hemoglobin 28.6 pg (26-34); Mean Corpuscular Volume 88.1 fl (80-100); Mean Platelet Volume 10.8 fl (7.4-10.4); Platelet Count Result 219 k/mm3 (150-375); Red Blood Count 3.77 M/mm3 (4.2-5.4); Red Cell Distribution Width 13.7 % (11.5-14.5); White Blood Count 12.5 K/mm3 (4.5-10.0)
[2024-07-06 06:41] LABS: Anion Gap 5 mmol/L (4-12); Blood Urea Nitrogen 38 mg/dL (7-17); Calcium 8.6 mg/dL (8.4-10.2); Carbon Dioxide 32 mmol/L (22-30); Chloride 102 mmol/L (98-107); Estimated CRCL calculation 32 ml/min; Estimated Glomerular Filt Rate 40; Glucose 184 mg/dL (65-110); Potassium 3.8 mmol/L (3.4-5.0); Sodium 139 mmol/L (137-145)
[2024-07-06 07:56] LABS: Glucose Point of Care 159 mg/dl (65-105)
--- NOTE | 2024-07-06 08:05 | P.PNIM_ITS ---
Progress Note: A&P Assessment and Plan (1) Chronic respiratory failure with hypoxia, on home oxygen therapy: Code(s): J96.11 - Chronic respiratory failure with hypoxia; Z99.81 - Dependence on supplemental oxygen Status: Acute Assessment and Plan: * likely due to COPD exacerbation verses asthma verses bronchitis /bronchospasm * patient has no history of smoking * wears 2 L at home at baseline currently on 2 L * continue to wean O2 for a sat greater than 92% * chest x-ray was negative * continue oral steroids * continue DuoNebs * continue Mucinex Continue Flonase Continue Singulair and Claritin * finishing azithromycin today * Pulmonology consulted to assist in optimizing outpatient care (2) Asthma with COPD with exacerbation: Code(s): J44.1 - Chronic obstructive pulmonary disease with (acute) exacerbation; J45.901 - Unspecified asthma with (acute) exacerbation Status: Acute Assessment and Plan: see above plan of care (3) UTI (urinary tract infection): Code(s): N39.0 - Urinary tract infection, site not specified Status: Acute Assessment and Plan: * UA showed 2+ leukocytes 3-5 urine RBC, to 20 urine RBC. 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 Status: Acute Assessment and Plan: had blood sugar ranging 300s to 500 initially, not in DKA, pH normal * Blood sugars ranging 159-184 * Hgb A1C 7.5 on 04/24/2022 * hemoglobin A1c was 7.8 on 07/03/2024 * Accu checks AC/HS * high-dose SSI ordered * Lantus increased to 60 units at HS * Will change mealtime replacement of 8 units with meals * hypoglycemic protocol in place * Diabetic diet ordered * glimepiride and Januvia on hold * Patient is on steroids (5) Congestive heart failure: Code(s): I50.9 - Heart failure, unspecified Status: Acute Assessment and Plan: * Lasix 20 mg daily ordered * plan for echo today Time Spent With Patient Time with patient: 25 - 35 minutes Subjective Date/time seen: 07/06/24 08:05 Interval history: interval history: is a 78-year-old female who presented to the hospital on 07/02/2024 with shortness of Breath. Workup in the hospital included a chest x-ray which was negative. 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 Initial labs showed a normal white blood cell count of 10.0 sodium 132, chloride 93, bicarb 31, creatinine 1.50, EGFR 34, blood sugar 324-479, anion gap 8, troponin was negative x2, proBNP 153. UA was obtained and showed 2+ leukocyte, 3-5 urine RBC, 11-20 urine WBC. Respiratory panel was negative for influenza a and B, RSV, COVID. Urine and blood cultures were obtained and are pending. Patient was given DuoNeb, 1 L of normal saline, 125 mg IV push Solu-Medrol, azithromycin while in the ED. Subjective: Patient denies any fever, chills, nausea, vomiting, diarrhea, abdominal pain, chest pain or shortness of breath with rest. Patient endorses shortness of breath with exertion and productive cough. Labs, cultures, and imaging reviewed. Review of Systems Review of Systems: All systems reviewed & are unremarkable except as noted in HPI and below Constitutional: Constitutional: Reports as per HPI and Reports no additional constitutional complaints Eyes: Eyes: Reports as per HPI and Reports no additional eye complaints ENT: Reports system reviewed and no additional complaints, except as documented and Reports as per HPI Cardiovascular: Cardiovascular: Reports as per HPI and Reports no additional cardiovascular complaints Respiratory: Respiratory: Reports as per HPI and Reports no additional respiratory complaints Gastrointestinal: Gastrointestinal: Reports as per HPI and Reports no additional gastrointestinal complaints Genitourinary: Genitourinary: Reports no additional female genitourinary complaints and Reports as per HPI Musculoskeletal: Musculoskeletal: Reports no additional musculoskeletal complaints and Reports as per HPI Integumentary/Breasts: Skin/Breast: Reports system reviewed and no additional complaints, except as docu and Reports as per HPI Neurologic: Reports system reviewed and no additional complaints, except as documented and Reports as per HPI Psychiatric: Psychiatric: Reports no additional psychiatric complaints and Reports as per HPI Exam Narrative: General: In no acute distress, well nourished Eyes: right pupil 3mm, left pupil 2mm Cardiac: Normal S1 and S2. No murmur, gallops or friction rubs, peripheral pulses intact. Respiratory: Lungs with rhonchi and wheezing throughout all lung maria, currently on 2 L nasal cannula, productive tight productive cough Gastrointestinal: soft, non-distended, non-tender, normoactive bowel sounds. : voiding without difficulty. Neuro: Alert and oriented x4 Objective Data Vital Signs Vital Signs: Vital Signs - 24 hr 07/05/24 08:27 07/05/24 13:54 07/05/24 14:00 Temperature Pulse Rate 66 72 64 Respiratory Rate 20 20 Blood Pressure Pulse Oximetry Oxygen Delivery Oxygen Flow Rate Fraction of Inspired Oxygen 07/05/24 14:00 07/05/24 20:42 07/05/24 21:15 Temperature 97.5 F L 97.8 F Pulse Rate 65 60 64 Respiratory Rate 18 20 20 Blood Pressure 152/74 H 160/65 H Pulse Oximetry 99 98 Oxygen Delivery Oxygen Flow Rate Fraction of Inspired Oxygen 07/05/24 21:16 07/05/24 21:30 07/05/24 20:00 Temperature Pulse Rate 64 66 66 Respiratory Rate 20 20 Blood Pressure Pulse Oximetry 97 97 Oxygen Delivery Nasal Cannula Nasal Cannula Oxygen Flow Rate 2 2 Fraction of Inspired Oxygen 28 28 07/06/24 03:00 07/06/24 03:09 07/06/24 06:00 Temperature 97.3 F L Pulse Rate 59 L 62 67 Respiratory Rate 20 20 20 Blood Pressure 168/76 H Pulse Oximetry 99 Oxygen Delivery Oxygen Flow Rate Fraction of Inspired Oxygen Intake/Output Intake/Output: Intake & Output 07/03/24 07/04/24 07/05/24 07/06/24 23:59 23:59 23:59 23:59 Intake Total 1060 1540 2200 400 Output Total 300 Balance 760 1540 2200 400 Meds/Results Medications: Active Medications Generic Name Dose Route Start Last Admin Trade Name Freq PRN Reason Stop Dose Admin Acetaminophen 650 mg 07/03/24 10:38 07/05/24 08:26 Acetaminophen 325 Mg Tablet PO 650 mg Q6H PRN Administration Mild Pain (1-3) or Fever Albuterol/Ipratropium 3 ml 07/03/24 02:00 07/06/24 02:59 Ipratropium 0.5 Mg/Albuterol Sulfate 2.5 Mg Ampul.Neb 3 Ml INHALATION 3 ml Q6HRT SADI Administration Albuterol/Ipratropium 3 ml 07/03/24 13:58 Ipratropium 0.5 Mg/Albuterol Sulfate 2.5 Mg Ampul.Neb 3 Ml INHALATION Q6HRT PRN Wheezing/SOB Alprazolam 1 mg 07/03/24 09:00 07/05/24 17:10 Alprazolam (*Crx) 0.5 Mg Tablet PO 1 mg BID SADI Administration Alprazolam 0.75 mg 07/03/24 21:00 07/05/24 20:32 Alprazolam (*Crx) 0.25 Mg Tablet PO 0.75 mg HS SADI Administration Aspirin 81 mg 07/03/24 09:00 07/05/24 08:28 Aspirin 81 Mg Enteric Tablet PO 81 mg DAILY SADI Administration Atorvastatin Calcium 20 mg 07/03/24 21:00 07/05/24 20:32 Atorvastatin 20 Mg Tablet PO 20 mg HS SADI Administration Azithromycin 500 mg 07/03/24 21:00 07/05/24 20:32 Azithromycin 250 Mg Tablet PO 07/06/24 21:01 500 mg DAILY@2100 SADI Administration Benzocaine 1 lozenge 07/05/24 13:28 07/05/24 14:50 Benzocaine/Menthol (*Bkc) 18 Ea Lozenge PO 1 lozenge PRN PRN Administration Sore Throat Buspirone HCl 20 mg 07/03/24 09:00 07/05/24 17:10 Buspirone Hcl 10 Mg Tablet PO 20 mg TID SADI Administration Carvedilol 25 mg 07/03/24 09:00 07/05/24 20:32 Carvedilol 25 Mg Tablet PO 25 mg Q12HR SADI Administration Dextrose 12.5 gm 07/02/24 23:29 Dextrose 50% 25 Gm/50 Ml Syringe IV PUSH PRN PRN Hypoglycemia Protocol Donepezil HCl 10 mg 07/03/24 09:00 07/05/24 08:26 Donepezil Hcl 5 Mg Tablet PO 10 mg DAILY SADI Administration Enoxaparin Sodium 40 mg 07/04/24 09:00 07/05/24 08:28 Enoxaparin 40 Mg/0.4 Ml Syringe SUB-Q 40 mg DAILY SADI Administration Fluticasone/Umeclidinium/Vilanterol 1 puff 07/03/24 08:00 07/05/24 07:43 Fluticasone/Umeclidin/Vilanter 100-62.5-25 Mcg Ellipta INHALATION 1 puff DAILYRT SADI Administration Furosemide 20 mg 07/04/24 13:15 07/05/24 08:28 Furosemide 20 Mg Tablet PO 20 mg QAM SADI Administration Glucose 15 gm 07/02/24 23:29 Glucose Oral Gel 15 Gm Of Glucse In 37.5 Gm Tube PO PRN PRN Hypoglycemia Protocol Guaifenesin 600 mg 07/03/24 09:00 07/05/24 20:33 Guaifenesin 12 Hr 600 Mg Tabcr PO 600 mg Q12HR SADI Administration Guaifenesin/Dextromethorphan 10 ml 07/03/24 01:31 Guaifenesin/Dextromethorphan 10 Ml Udc PO Q4H PRN Cough Dextrose 1,000 mls @ 100 mls/hr 07/02/24 23:29 Dextrose 5% 1,000 Ml IVPB PRN PRN Hypoglycemia Protocol Insulin Aspart 4 - 8 units 07/03/24 08:00 07/06/24 07:59 Insulin Aspart (*Bkc) 100 Units/Ml SUB-Q Not Given TIDWM SADI Protocol Insulin Aspart 6 units 07/04/24 08:00 07/05/24 17:11 Insulin Aspart (*Bkc) 100 Units/Ml SUB-Q 6 units TIDWM SADI Administration Insulin Glargine 60 units 07/03/24 21:00 07/05/24 20:34 Insulin Glargine (*Bkc) 100 Units/Ml SUB-Q 60 units HS SADI Administration Loratadine 10 mg 07/04/24 09:00 07/05/24 08:27 Loratadine 10 Mg Tablet PO 10 mg QAM SADI Administration Methocarbamol 750 mg 07/03/24 01:31 07/05/24 20:33 Methocarbamol 750 Mg Tablet PO 750 mg TID PRN Administration Muscle Spasm Montelukast Sodium 10 mg 07/03/24 21:00 07/05/24 20:33 Montelukast Sodium 10 Mg Tablet PO 10 mg HS SADI Administration Pantoprazole Sodium 40 mg 07/03/24 09:00 07/05/24 08:28 Pantoprazole 40 Mg Tablet PO 40 mg DAILY SADI Administration Paroxetine HCl 60 mg 07/03/24 09:00 07/05/24 08:27 Paroxetine 20 Mg Tablet PO 60 mg DAILY SADI Administration Perflutren Lipid Microsphere 0 ml 07/05/24 07:28 Perflutren Lipid Microspheres 1.5 Ml Vial Diluted To 10 Ml Total Volume IV PUSH 07/08/24 07:28 ONCE PRN adequate visualization Protocol Polyethylene Glycol 17 gm 07/03/24 01:31 Polyethylene Glycol 3350 17 Gm Powd.Pack PO BID PRN Constipation Prednisone 40 mg 07/06/24 08:00 Prednisone 20 Mg Tablet PO DAILY@0800 SADI Sodium Chloride 1 spray 07/04/24 15:32 07/05/24 08:36 Saline 0.65% Jonny Soln 44 Ml Btl NASAL 1 spray Q6HR PRN Administration Congestion Tramadol HCl 50 mg 07/03/24 01:31 07/05/24 20:32 Tramadol Hcl (*Crx) 50 Mg Tablet PO 50 mg Q6H PRN Administration Pain (Scale Score 4-6) Radiology Results: ITS Impressions Head CT 07/03/24 09:04 IMPRESSION: 1. 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 No acute intracranial process. 2. Age related changes including mild to moderate diffuse volume loss and moderate scattered white matter hypoattenuation consistent with chronic small vessel ischemic disease. Chest X-Ray 07/04/24 15:04 IMPRESSION: Slight atelectasis at the lung bases Labs Labs: Laboratory Results - last 24 hr 07/05/24 07/05/24 07/05/24 07:52 08:02 11:45 WBC 15.7 H RBC 3.85 L Hgb 11.0 L Hct 34.0 L MCV 88.3 MCH 28.6 MCHC 32.4 RDW 14.0 Plt Count 235 MPV 10.9 H Sodium 138 Potassium 4.0 Chloride 101 Carbon Dioxide 28 Anion Gap 9 BUN 36 H Creatinine 1.30 H Estim Creat Clear Calc 32 Estimated GFR 40 L Glucose 262 H POC Capillary Glucose 282 H 296 H Calcium 8.7 07/05/24 07/05/24 07/06/24 16:41 19:50 06:07 WBC 12.5 H RBC 3.77 L Hgb 10.8 L Hct 33.2 L MCV 88.1 MCH 28.6 MCHC 32.5 RDW 13.7 Plt Count 219 MPV 10.8 H Sodium 139 Potassium 3.8 Chloride 102 Carbon Dioxide 32 H Anion Gap 5 BUN 38 H Creatinine 1.30 H Estim Creat Clear Calc 32 Estimated GFR 40 L Glucose 184 H POC Capillary Glucose 140 H 201 H Calcium 8.6 07/06/24 07:54 WBC RBC Hgb Hct MCV MCH MCHC RDW Plt Count MPV Sodium Potassium Chloride Carbon Dioxide Anion Gap BUN Creatinine Estim Creat Clear Calc Estimated GFR Glucose POC Capillary Glucose 159 H Calcium Quality VTE Prophylaxis VTE prophylaxis: pharmacologic ordered
[2024-07-06] MEDS: FLUTICASONE/UMECLIDIN/VILANTER 100-62.5-25 MCG ELLIPTA 1 PUFF INHALATION (08:15)
[2024-07-06] MEDS: ALPRAZolam (*CRX) 0.5 MG TABLET 1 MG PO ×2 (09:56→16:56)
[2024-07-06] MEDS: PANTOPRAZOLE 40 MG TABLET PO (09:56)
[2024-07-06] MEDS: busPIRone HCL 10 MG TABLET 20 MG PO ×3 (09:56→16:55)
[2024-07-06] MEDS: LORATADINE 10 MG TABLET PO (09:57)
[2024-07-06] MEDS: guaiFENesin 12 HR 600 MG TABCR PO ×2 (09:57→20:20)
[2024-07-06] MEDS: DONEPEZIL HCL 5 MG TABLET 10 MG PO (09:57)
[2024-07-06] MEDS: predniSONE 20 MG TABLET 40 MG PO (09:57)
[2024-07-06] MEDS: ASPIRIN 81 MG ENTERIC TABLET PO (09:57)
[2024-07-06] MEDS: FUROSEMIDE 20 MG TABLET PO (09:57)
[2024-07-06] MEDS: ENOXAPARIN 40 MG/0.4 ML SYRINGE SUB-Q (09:57)
[2024-07-06] MEDS: PARoxetine 20 MG TABLET 60 MG PO (09:58)
[2024-07-06] MEDS: carvediloL 25 MG TABLET PO ×2 (09:58→20:19)
[2024-07-06 11:38] LABS: Glucose Point of Care 233 mg/dl (65-105)
[2024-07-06] MEDS: INSULIN ASPART (*BKC) 100 UNITS/ML 8 UNITS SUB-Q ×2 (11:50→16:56)
[2024-07-06] MEDS: INSULIN ASPART (*BKC) 100 UNITS/ML SUB-Q ×2 (11:50→16:59)
[2024-07-06 16:43] LABS: Glucose Point of Care 229 mg/dl (65-105)
--- NOTE | 2024-07-06 17:23 | P.CONPL_ITS ---
Assessment and Plan Assessment and plan (1) Chronic respiratory failure with hypoxia: Code(s): J96.11 - Chronic respiratory failure with hypoxia Status: Acute Assessment and Plan: She uses O2 at home, Tells me she started using oxygen 10-20 years ago initially at night 2 L a minute, sometimes during the day when she is short of breath. She is short of breath with exertion, has a walker in the room. She does NOT use O2 in the day at home according to her history as she told me, however the chart suggests that she has been on more O2. (2) Shortness of Breath: Code(s): R06.02 - Shortness of breath Status: Acute Assessment and Plan: She has poor short of breath this admission, does feel better compared to when she was initially admitted. she continues to have expiratory wheezes. She had an echocardiogram showing EF 50-55%. (3) Asthma-COPD overlap syndrome: Code(s): J44.9 - Chronic obstructive pulmonary disease, unspecified Status: Acute Assessment and Plan: She has had diagnosis of asthma since childhood, had pulmonary function test in 2013 consistent with moderate COPD. She will need repeat PFTs after discharge when she is more stable. Plan plan: Check alpha-1 antitrypsin phenotype. This was ordered for this am. She had moderate obstructive pattern on PFT from 2013, never smoked. She has been on O2 for years, initially with sleep She started using O2 around the clock while she was here this admission. She needs evaluation for severity of underlying obstructive lung disease. Peak flow once today before leaving, instruct in use of PF meter. She has a Cornet PEP valve, I increased to 3rd setting, and this was appropriate for her. She is able to exhale without excess effort. Home O2 study before departure today, start the study on room air. The [employer] walked her to the bathroom, on RA, and patient stayed 97% and above during this short distance. Follow up in pulmonary office in a month. I spoke with her daughter, Chelly, by phone, gave her the office number to call for appt. Stable from a pulmonary standpoint to go to [facility] today. Continue her home Trelegy 100, one puff a day. Continue prn albuterol. She has a nebulizer, rarely uses. Carmen did Home O2 evaluation; patient walked several hundred feet in the hunter, does not need O2 with exertion. Peak Flow: 250 L/min twice. Lowest was 200 L/min. Range is 286 to 190. She is in the normal range for age and height 52 inches 78 year old female. History of Present Illness History of Present Illness Consult date: 07/07/24 Requesting physician: Kristi Mason APRN Chief complaint: COPD/asthma, chronic lung disease Narrative: patient was seen Jul 06, 2024 at 17:35 pm, room 252 and Jul 07 at 1525 NEW: Arabella Pike is a 78-year-old woman who was admitted Jul 02; her diagnoses include COPD, chronic respiratory failure on O2, she has never been a smoker. She was admitted 07/02/2024 with shortness of breath, no infiltrate on CXR. She was on azithromycin until 07/06. CXR 07/04/24 shows slight atelectasis at the lung bases; initial WBC 10, increased to 18.9 on Jul 04, now 12.5 K. She was initially thought to have a urinary tract infection and had elevated blood glucose, the final report on the UA did not confirm a UTI. Swabs all negative A/B. RSV and SARS-CoV-2 RNA. Treatment also included oral steroids, Duonebs, Mucinex, Flonase, Singulair, Claritin. She says that she is tired of feeling like she can't breathe. She was born prematurely, was in an incubator, had asthma in childhood with frequent breathing problems as a child, could not run as fast as others. She had frequent respiratory infections. Her breathing improved in adulthood, no breathing problems with her 4 pregnancies. Later in life she started having difficulties again. She has used oxygen for 10-20 years initially at night but uses it sometimes during the day when she is really short of breath. She falls often, must use a walker when she is in the halls @ [facility]. She has a daily cough with green sputum about 1 tsp total per day. She coughs in the morning and then later in the evening. She does not wake at night due to shortness of breath. She has never had a pulmonary embolus, she has never had COVID although she had a COVID test that was (+) without symptoms. She lives at [facility], she has had COVID vaccine series. Weather changes bother her. She has broken her nose twice, once in childhood, later dancing with her , had surgery to correct. Family hx: older sister is almost 80, has some lung disease, not asthma. No other family members have lung disease. Social history: Never smoked. Was raised in smoked, both parents. She is the mother of 4; worked 14 years at [employer]. 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 She was exposed to smoke in the bar. No history, no exposure to asbestos, vapors or fumes. Other PMH: Chronic respiratory failure, hypoxia, O2 at home. asthma/COPD, DM, CHF PSH: 09/07/2021; fell, facial fractures; had surgery 09/28/21 for facial injury; comminuted deviated nasal fracture Closed reduction nasal fracture Dr Calderón. Also had L hand fractures. Head CT = old lacunar infarcts bilateral basal ganglia, (R) FP centrum semiovale, age changes, no WBC, Na 132, creat 1.5, high glucose, solumedrol. DATA * 07/06/2024, echo . Complete two-dimensional, color flow and Doppler transthoracic echocardiogram is performed. 2. The left ventricular size and systolic function is normal. The left ventricular ejection fraction is visually estimated to be 55-60%. 3. The right ventricle size is mildly dilated and systolic function is normal. * 01/12/2014; PFT; decreased FEV1, FVC, FEV1%, increased lung volumes consistent with hyperinflation and air trapping, low DLCO. She was on ProAir and nocturnal O2 at the time. * 01/15/2023 Eosinophils : 500 total, WBC was 9.5 with 5.7% eosinophils. * 11/05/2020 CTA chest: The pulmonary arteries are well-opacified. No pulmonary embolism is identified. Stable nodules of the lower lobes measuring up to 5 mm are consistent with old granulomatous disease. There is mild atelectasis of the lower lobes. There is no pleural effusion or pneumothorax. The heart size is normal. There is calcified coronary artery atherosclerosis. There is a mildly enlarged right hilar lymph node, likely reactive. There are surgical changes of hiatal hernia repair with a small recurrent hiatal hernia. 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 Vertebroplasty change is noted in the T10 vertebral body.IMPRESSION: 1. No pulmonary embolism or acute cardiopulmonary abnormality. Mild atelectasis. Review of Systems Review of Systems: She falls often. When she was at either [place] or [facility], she had surgery for her hiatal hernia, was left with a large extra thick area on her sternum, maybe a fat pad. Not clear how this happened. All systems reviewed & are unremarkable except as noted in HPI and below PMFSH Past Medical History Medical History (Updated 07/06/24 @ 22:06 by Socorro Patton MD) Anemia Anxiety Arthritis Asthma Asthma-COPD overlap syndrome Cerebrovascular accident Chronic kidney disease, stage 3 Chronic respiratory failure with hypoxia, on home oxygen therapy Colitis Congestive heart failure COPD exacerbation Coronary artery disease Depression Dyslipidemia Gastric ulcer Gastroesophageal reflux disease Hiatal hernia Hypertension Insulin dependent type 2 diabetes mellitus Myocardial infarction Pneumonia Surgical History Surgical History History of appendectomy History of bladder suspension procedure History of cardiac catheterization History of colonoscopy with polypectomy History of coronary artery stent placement History of dilation and curettage History of hysterectomy History of sinus surgery History of tubal ligation Family History Family History Mother Family history of diabetes mellitus in first degree relative Family history of primary malignant neoplasm of liver Family history of heart disease in male family member before age 55 Family history of hearing loss Family history of liver disease Diabetes mellitus Cerebrovascular accident Family history of pancreatic cancer Hypertension Father Family history of emphysema Sibling Diabetes mellitus Other Depression Family history of alcoholism Family history of allergic disorder Family history of arthritis Family history of cardiovascular disease Family history of coronary artery disease Family history of malignant neoplasm Family history of mental disorder Family history of osteoporosis Social History Social History Social History: Healthcare power of heel seam rubber: Alistair Martínez. Code status: Full code. Smoking status: Never smoker Second hand tobacco smoke exposure: Yes Alcohol intake: never Alcohol use details: History of alcohol abuse, none since 2014. Substance use: never Do You Feel Safe in your Home?: Yes Lack of Transportation: No Lack of Food: Never True Current Housing: I Have Housing Concerned About Future Housing: No Difficulty Paying Gas/Electric Bills: No Difficulty Paying for Meds: No Currently Unemployed: No Education: High School Diploma/GED Difficulty w/ Childcare or Family Care: No Living arrangements: assisted living Additional living arrangements comments: Assisted living at [facility]. Occupation/Education: retired Gender identity (if verbalized by the patient): Female Spiritual care concerns: No Meds Home Medications and Allergies Home Medications Medication Instructions Recorded Confirmed Type acetaminophen 325 mg capsule 650 mg PO Q6H PRN Pain (Scale 10/14/19 07/02/24 History Score 1-3) alprazolam 0.5 mg tablet 0.75 mg PO HS 10/14/19 07/02/24 History aspirin 81 mg tablet,delayed 81 mg PO DAILY 10/14/19 07/02/24 History release (Adult Low Dose Aspirin) carvedilol 25 mg tablet (Coreg) 25 mg PO BID 10/14/19 07/02/24 History donepezil 5 mg tablet 10 mg PO DAILY 10/14/19 07/02/24 History furosemide 20 mg tablet 20 mg PO QAM 10/14/19 07/02/24 History glucose 4 gram chewable tablet 4 gm PO Q15M PRN Hypoglycemia 10/14/19 07/02/24 History (Dex4 Glucose) insulin glargine 100 unit/mL (3 50 unit subcut HS 10/14/19 07/02/24 History mL) subcutaneous pen (Lantus Solostar U-100 Insulin) ipratropium 0.5 mg-albuterol 3 mg 3 ml inhalation Q6H PRN Dyspnea 10/14/19 07/02/24 History (2.5 mg base)/3 mL nebulization soln methocarbamol 750 mg tablet 750 mg PO TID PRN Muscle Spasm 10/14/19 07/02/24 History montelukast 10 mg tablet 10 mg PO HS 10/14/19 07/02/24 History multivitamin 1 tablet PO DAILY 10/14/19 07/02/24 History pantoprazole 40 mg tablet,delayed 40 mg PO DAILY 10/14/19 07/02/24 History release paroxetine HCl 40 mg tablet 60 mg PO DAILY 10/14/19 07/02/24 History sitagliptin phosphate 100 mg 100 mg PO QAM 10/14/19 07/02/24 History tablet (Januvia) vitamin B complex (B 1 tablet PO DAILY 10/14/19 07/02/24 History Complex-Vitamin B12 tablet) polyethylene glycol 3350 17 17 gm PO BID PRN Constipation 09/18/21 07/02/24 History gram/dose oral powder (Miralax) atorvastatin 20 mg tablet 20 mg PO HS 04/23/22 07/02/24 History glipizide 10 mg tablet 10 mg PO DAILY 04/23/22 07/02/24 History albuterol sulfate 90 mcg/actuation 2 inhalation inhalation 4-6XD PRN 08/23/22 07/02/24 Rx aerosol inhaler Shortness Of Breath Or Wheezing #8.5 grams fluticasone fur. 100 mcg-umeclid 1 inh inhalation DAILY #60 ea 08/23/22 07/02/24 Rx 62.5 mcg-vilant 25 mcg inhalat.powder (Trelegy Ellipta) fluticasone propionate 50 1 spray intranasal Q12HR #16 grams 08/23/22 07/02/24 Rx mcg/actuation nasal spray,suspension guaifenesin 600 mg tablet, 600 mg PO Q12HR #14 tabs 08/23/22 07/02/24 Rx extended release 12 hr (Mucus Relief ER) hydrocortisone 1 % topical cream 1 applic topical Q12HR PRN itching 08/23/22 07/02/24 Rx #28.35 grams insulin aspart U-100 100 unit/mL 4 - 8 unit subcut TIDWM #10 mL 08/23/22 07/02/24 Rx subcutaneous solution (Novolog U-100 Insulin aspart) lanolin alcohols-mineral 1 applic topical DAILY #113 grams 08/23/22 07/02/24 Rx oil-w.petrolatum-ceresin topical cream (Minerin Creme topical) peg [id number]-[id number] 1 1 drp EACH EYE QID PRN Dry Eye(S) 08/23/22 07/02/24 Rx %-0.2 %-0.2 % eye drops #15 mL (Artificial Tears ([id number])) lidocaine 5 % topical cream 1 applic topical BID PRN pain 7 05/21/23 07/02/24 Rx days #28.35 grams Robitussin DM Max 10 ml PO Q4H PRN Cough 07/02/24 07/02/24 History acetaminophen 500 mg capsule 500 mg PO QID PRN Pain (Scale 07/02/24 07/02/24 History Score 4-6) alprazolam 0.5 mg tablet 1 mg PO BID 07/02/24 07/02/24 History biotin 2,500 mcg PO DAILY 07/02/24 07/02/24 History buspirone 10 mg tablet 20 mg PO TID 07/02/24 07/02/24 History multivitamin (Daily-Urbano tablet) 1 tablet PO DAILY 07/02/24 07/02/24 History tramadol 50 mg tablet 50 mg PO Q6H PRN Pain (Scale Score 07/02/24 07/02/24 History 4-6) Allergies Allergy/AdvReac Type Severity Reaction Status Date / Time meperidine AdvReac Mild Diarrhea Verified 12/03/23 11:09 Vital Signs Vital Signs - 24 hr 07/05/24 20:42 07/05/24 21:15 07/05/24 21:16 Temperature 36.6 C Pulse Rate 60 64 64 Respiratory Rate 20 20 Blood Pressure 160/65 H Pulse Oximetry 98 97 Oxygen Delivery Nasal Cannula Oxygen Flow Rate 2 Fraction of Inspired Oxygen 28 07/05/24 21:30 07/05/24 20:00 07/06/24 03:00 Temperature Pulse Rate 66 66 59 L Respiratory Rate 20 20 20 Blood Pressure Pulse Oximetry 97 Oxygen Delivery Nasal Cannula Oxygen Flow Rate 2 Fraction of Inspired Oxygen 28 07/06/24 03:09 07/06/24 06:00 07/06/24 08:15 Temperature 36.3 C L Pulse Rate 62 67 Respiratory Rate 20 20 Blood Pressure 168/76 H Pulse Oximetry 99 98 Oxygen Delivery Nasal Cannula Oxygen Flow Rate 2 Fraction of Inspired Oxygen 07/06/24 08:15 07/06/24 08:22 07/06/24 09:58 Temperature Pulse Rate 66 62 60 Respiratory Rate 20 20 Blood Pressure Pulse Oximetry Oxygen Delivery Oxygen Flow Rate Fraction of Inspired Oxygen 07/06/24 09:59 07/06/24 13:15 07/06/24 13:22 Temperature Pulse Rate 60 60 Respiratory Rate 20 20 20 Blood Pressure Pulse Oximetry 98 Oxygen Delivery Nasal Cannula Oxygen Flow Rate 2 Fraction of Inspired Oxygen 07/06/24 14:00 Temperature 36.6 C Pulse Rate 64 Respiratory Rate 16 Blood Pressure 123/80 Pulse Oximetry 98 Oxygen Delivery Oxygen Flow Rate Fraction of Inspired Oxygen Exam Narrative: GEN: Alert, oriented, not in distress. She is wearing O2 nasal cannula; I removed the O2 at 15:50. HEENT: pupils are equal, EOMI, symmetrical face; nasal passages show white drainage. Mallampati III airway, moist, crowded, natural teeth, in need of some repair. NECK: Trachea is midline CHEST: She may have a pectus carinatum, with fat pad covering it; equal air entry, symmetric excursion, expiratory wheezes. Prolonged expiration. CV: Regular S1S2 no m/g/r ABD : (+) bowel sounds Extremities : no clubbing, cyanosis, or edema. Skin is covered with flat dime sized erythematous lesions, she says she had had these for years, pruritic; started using Cereve here in hospital with some relief. PSYCH: normal thought, raspy speech, worse with nasal drainage. Results Laboratory Findings 07/07/24 05:51 07/07/24 05:51 ABG, PT/INR, D-dimer: ABG ABG pH 7.455 (7.350-7.450) H 07/03/24 06:28 ABG pCO2 32.4 mmHg (35.0-45.0) L 07/03/24 06:28 ABG pO2 60.6 mmHg (80.0-100.0) L 07/03/24 06:28 ABG O2 Saturation 92.7 % (95.0-100.0) L 07/03/24 06:28 PT/INR, D-dimer PT 15.6 Seconds (11.1-14.7) H 07/02/24 13:19 INR 1.2 07/02/24 13:19 Abnormal lab findings: Abnormal Labs 07/02/24 07/02/24 07/02/24 13:19 14:22 21:56 WBC RBC Hgb Hct 36.8 L MPV 10.5 H Neut % (Auto) Lymph % (Auto) [place] % (Auto) 9.7 H [place] # (Auto) 1.0 H Abs Immat Gran (auto) Absolute Neuts (auto) PT 15.6 H ABG pH ABG pCO2 ABG pO2 ABG O2 Saturation ABG O2 Content Total Hemoglobin Sodium 132 L Chloride 93 L Carbon Dioxide 31 H Anion Gap BUN 29 H D Creatinine 1.50 H Estimated GFR 34 L Glucose 324 H POC Capillary Glucose 433 H Hemoglobin A1c NT-Pro-B Natriuret Pep 153 H Leukocyte Esterase Rfl 2+ H Urine RBC 3-5 H Urine WBC 11-20 H 07/03/24 07/03/24 07/03/24 00:41 01:41 04:10 WBC RBC Hgb Hct MPV Neut % (Auto) Lymph % (Auto) [place] % (Auto) [place] # (Auto) Abs Immat Gran (auto) Absolute Neuts (auto) PT ABG pH ABG pCO2 ABG pO2 ABG O2 Saturation ABG O2 Content Total Hemoglobin Sodium Chloride Carbon Dioxide Anion Gap BUN Creatinine Estimated GFR Glucose 479 H POC Capillary Glucose > 500 H* 391 H Hemoglobin A1c NT-Pro-B Natriuret Pep Leukocyte Esterase Rfl Urine RBC Urine WBC 07/03/24 07/03/24 07/03/24 05:54 06:28 08:32 WBC RBC Hgb Hct MPV Neut % (Auto) Lymph % (Auto) [place] % (Auto) [place] # (Auto) Abs Immat Gran (auto) Absolute Neuts (auto) PT ABG pH 7.455 H ABG pCO2 32.4 L ABG pO2 60.6 L ABG O2 Saturation 92.7 L ABG O2 Content 15.1 L Total Hemoglobin 11.9 L Sodium Chloride Carbon Dioxide Anion Gap BUN Creatinine Estimated GFR Glucose POC Capillary Glucose 350 H 311 H Hemoglobin A1c NT-Pro-B Natriuret Pep Leukocyte Esterase Rfl Urine RBC Urine WBC 07/03/24 07/03/24 07/03/24 09:20 11:58 12:15 WBC 15.0 H RBC 4.15 L Hgb 11.8 L Hct 35.7 L MPV 10.7 H Neut % (Auto) Lymph % (Auto) [place] % (Auto) [place] # (Auto) Abs Immat Gran (auto) Absolute Neuts (auto) PT ABG pH ABG pCO2 ABG pO2 ABG O2 Saturation ABG O2 Content Total Hemoglobin Sodium 135 L Chloride Carbon Dioxide 21 L Anion Gap 14 H BUN 27 H Creatinine 1.20 H Estimated GFR 44 L Glucose 277 H POC Capillary Glucose 181 H Hemoglobin A1c 7.8 H NT-Pro-B Natriuret Pep Leukocyte Esterase Rfl Urine RBC Urine WBC 07/03/24 07/03/24 07/04/24 16:56 20:42 00:01 WBC RBC Hgb Hct MPV Neut % (Auto) Lymph % (Auto) [place] % (Auto) [place] # (Auto) Abs Immat Gran (auto) Absolute Neuts (auto) PT ABG pH ABG pCO2 ABG pO2 ABG O2 Saturation ABG O2 Content Total Hemoglobin Sodium Chloride Carbon Dioxide Anion Gap BUN Creatinine Estimated GFR Glucose POC Capillary Glucose 267 H 400 H 374 H Hemoglobin A1c NT-Pro-B Natriuret Pep Leukocyte Esterase Rfl Urine RBC Urine WBC 07/04/24 07/04/24 07/04/24 03:43 08:07 08:16 WBC 18.9 H RBC 3.86 L Hgb 10.9 L Hct 33.8 L MPV 10.8 H Neut % (Auto) 90.3 H Lymph % (Auto) 7.5 L [place] % (Auto) 1.5 L [place] # (Auto) Abs Immat Gran (auto) 0.10 H Absolute Neuts (auto) 17.1 H PT ABG pH ABG pCO2 ABG pO2 ABG O2 Saturation ABG O2 Content Total Hemoglobin Sodium Chloride Carbon Dioxide 31 H Anion Gap BUN 32 H Creatinine 1.10 H Estimated GFR 48 L Glucose 191 H POC Capillary Glucose 206 H 208 H Hemoglobin A1c NT-Pro-B Natriuret Pep Leukocyte Esterase Rfl Urine RBC Urine WBC 07/04/24 07/04/24 07/04/24 12:05 16:45 20:01 WBC RBC Hgb Hct MPV Neut % (Auto) Lymph % (Auto) [place] % (Auto) [place] # (Auto) Abs Immat Gran (auto) Absolute Neuts (auto) PT ABG pH ABG pCO2 ABG pO2 ABG O2 Saturation ABG O2 Content Total Hemoglobin Sodium Chloride Carbon Dioxide Anion Gap BUN Creatinine Estimated GFR Glucose POC Capillary Glucose 209 H 219 H 244 H Hemoglobin A1c NT-Pro-B Natriuret Pep Leukocyte Esterase Rfl Urine RBC Urine WBC 07/05/24 07/05/24 07/05/24 07:52 08:02 11:45 WBC 15.7 H RBC 3.85 L Hgb 11.0 L Hct 34.0 L MPV 10.9 H Neut % (Auto) Lymph % (Auto) [place] % (Auto) [place] # (Auto) Abs Immat Gran (auto) Absolute Neuts (auto) PT ABG pH ABG pCO2 ABG pO2 ABG O2 Saturation ABG O2 Content Total Hemoglobin Sodium Chloride Carbon Dioxide Anion Gap BUN 36 H Creatinine 1.30 H Estimated GFR 40 L Glucose 262 H POC Capillary Glucose 282 H 296 H Hemoglobin A1c NT-Pro-B Natriuret Pep Leukocyte Esterase Rfl Urine RBC Urine WBC 07/05/24 07/05/24 07/06/24 16:41 19:50 06:07 WBC 12.5 H RBC 3.77 L Hgb 10.8 L Hct 33.2 L MPV 10.8 H Neut % (Auto) Lymph % (Auto) [place] % (Auto) [place] # (Auto) Abs Immat Gran (auto) Absolute Neuts (auto) PT ABG pH ABG pCO2 ABG pO2 ABG O2 Saturation ABG O2 Content Total Hemoglobin Sodium Chloride Carbon Dioxide 32 H Anion Gap BUN 38 H Creatinine 1.30 H Estimated GFR 40 L Glucose 184 H POC Capillary Glucose 140 H 201 H Hemoglobin A1c NT-Pro-B Natriuret Pep Leukocyte Esterase Rfl Urine RBC Urine WBC 07/06/24 07/06/24 07/06/24 07:54 11:35 16:40 WBC RBC Hgb Hct MPV Neut % (Auto) Lymph % (Auto) [place] % (Auto) [place] # (Auto) Abs Immat Gran (auto) Absolute Neuts (auto) PT ABG pH ABG pCO2 ABG pO2 ABG O2 Saturation ABG O2 Content Total Hemoglobin Sodium Chloride Carbon Dioxide Anion Gap BUN Creatinine Estimated GFR Glucose POC Capillary Glucose 159 H 233 H 229 H Hemoglobin A1c NT-Pro-B Natriuret Pep Leukocyte Esterase Rfl Urine RBC Urine WBC
[2024-07-06] MEDS: INSULIN GLARGINE (*BKC) 100 UNITS/ML 60 UNITS SUB-Q (20:11)
[2024-07-06] MEDS: ALPRAZolam (*CRX) 0.25 MG TABLET 0.75 MG PO (20:19)
[2024-07-06] MEDS: methocarbamoL 750 MG TABLET PO (20:19)
[2024-07-06] MEDS: MONTELUKAST SODIUM 10 MG TABLET PO (20:20)
[2024-07-06] MEDS: AZITHROMYCIN 250 MG TABLET 500 MG PO (20:20)
[2024-07-06] MEDS: ATORVASTATIN 20 MG TABLET PO (20:20)
[2024-07-06] MEDS: ACETAMINOPHEN 325 MG TABLET 650 MG PO (20:20)
[2024-07-06 20:57] LABS: Glucose Point of Care 180 mg/dl (65-105)
[2024-07-07] VITALS (12 sets, daily range): BP systolic 147–170; BP diastolic 68–72; PULSE 58–68; RESP 16–20; TEMP 36.6–37.3; O2SAT 96–100
[2024-07-07] MEDS: IPRATROPIUM 0.5 MG/ALBUTEROL SULFATE 2.5 MG AMPUL.NEB 3 ML INHALATION ×3 (01:53→13:33)
[2024-07-07 05:59] LABS: Hematocrit 35.2 % (37.0-47.0); Hemoglobin 11.3 g/dL (12.0-15.0); Mean Corpuscular HGB Conc 32.1 g/dl (32-36); Mean Corpuscular Hemoglobin 28.3 pg (26-34); Mean Corpuscular Volume 88.2 fl (80-100); Platelet Count Result 228 k/mm3 (150-375); Red Blood Count 3.99 M/mm3 (4.2-5.4); Red Cell Distribution Width 13.7 % (11.5-14.5); White Blood Count 12.9 K/mm3 (4.5-10.0)
[2024-07-07 06:12] LABS: Anion Gap 4 mmol/L (4-12); Blood Urea Nitrogen 32 mg/dL (7-17); Calcium 8.6 mg/dL (8.4-10.2); Carbon Dioxide 33 mmol/L (22-30); Chloride 103 mmol/L (98-107); Estimated CRCL calculation 38 ml/min; Estimated Glomerular Filt Rate 48; Glucose 97 mg/dL (65-110); Potassium 3.7 mmol/L (3.4-5.0); Sodium 140 mmol/L (137-145)
[2024-07-07] MEDS: FLUTICASONE/UMECLIDIN/VILANTER 100-62.5-25 MCG ELLIPTA 1 PUFF INHALATION (07:09)
[2024-07-07 08:04] LABS: Glucose Point of Care 75 mg/dl (65-105)
[2024-07-07] MEDS: PARoxetine 20 MG TABLET 60 MG PO (08:29)
[2024-07-07] MEDS: DONEPEZIL HCL 5 MG TABLET 10 MG PO (08:29)
[2024-07-07] MEDS: PANTOPRAZOLE 40 MG TABLET PO (08:29)
[2024-07-07] MEDS: FUROSEMIDE 20 MG TABLET PO (08:29)
[2024-07-07] MEDS: ENOXAPARIN 40 MG/0.4 ML SYRINGE SUB-Q (08:30)
[2024-07-07] MEDS: busPIRone HCL 10 MG TABLET 20 MG PO ×3 (08:30→16:34)
[2024-07-07] MEDS: ALPRAZolam (*CRX) 0.5 MG TABLET 1 MG PO ×2 (08:30→16:35)
[2024-07-07] MEDS: ASPIRIN 81 MG ENTERIC TABLET PO (08:30)
[2024-07-07] MEDS: predniSONE 20 MG TABLET 40 MG PO (08:30)
[2024-07-07] MEDS: carvediloL 25 MG TABLET PO (08:30)
[2024-07-07] MEDS: LORATADINE 10 MG TABLET PO (08:31)
[2024-07-07] MEDS: guaiFENesin 12 HR 600 MG TABCR PO (08:31)
[2024-07-07] MEDS: BENZOCAINE/MENTHOL (*BKC) 18 EA LOZENGE 1 LOZENGE PO (09:15)
[2024-07-07 11:46] LABS: Glucose Point of Care 245 mg/dl (65-105)
[2024-07-07] MEDS: INSULIN ASPART (*BKC) 100 UNITS/ML 8 UNITS SUB-Q ×2 (11:56→16:59)
[2024-07-07] MEDS: INSULIN ASPART (*BKC) 100 UNITS/ML SUB-Q ×2 (11:57→17:00)
--- NOTE | 2024-07-07 12:38 | P.DS_ITS ---
DS: Admitting Diagnosis Discharge Date 07/07/24 Admitting Diagnosis UTI chronic respiratory failure with hypoxia insulin-dependent type 2 diabetes mellitus asthma COPD exacerbation DS: Discharge Diagnosis Discharge Diagnosis (1) Chronic respiratory failure with hypoxia, on home oxygen therapy: Code(s): J96.11 - Chronic respiratory failure with hypoxia; Z99.81 - Dependence on supplemental oxygen Status: Acute (2) Asthma with COPD with exacerbation: Code(s): J44.1 - Chronic obstructive pulmonary disease with (acute) exacerbation; J45.901 - Unspecified asthma with (acute) exacerbation Status: Acute (3) UTI (urinary tract infection): Code(s): N39.0 - Urinary tract infection, site not specified Status: Acute (4) Insulin dependent type 2 diabetes mellitus: Code(s): E11.9 - Type 2 diabetes mellitus without complications; 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 Workup in the hospital included a chest x-ray which was negative. 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 Initial labs showed a normal white blood cell count of 10.0 sodium 132, chloride 93, bicarb 31, creatinine 1.50, EGFR 34, blood sugar 324-479, anion gap 8, troponin was negative x2, proBNP 153. UA was obtained and showed 2+ leukocyte, 3-5 urine RBC, 11-20 urine WBC. Respiratory panel was negative for influenza a and B, RSV, COVID. Urine and blood cultures were obtained and are pending. Patient was given DuoNeb, 1 L of normal saline, 125 mg IV push Solu-Medrol, azithromycin while in the ED. She finished full course of Azithromycin today. Her lungs sound improved with improvement on Chest x-ray today. VSS, she is back to her baseline O2 requirement of 2L NC, She is afebrile. She will need to follow up with Pulmonology in 2 weeks for additional work up and possible PFTs. She is stable for discharge at this time. UTI was ruled out with urine culture negative final read. final diagnosis: acute on chronic respiratory failure with hypoxia, asthma exacerbation, COPD exacerbation Status at Discharge Cognitive/behavioral status at discharge: Alert x4 Functional status at discharge: uses cane/walker Overall status at discharge: patient is progressing back to baseline Time Spent with Patient Time attestation: Total time spent providing and/or coordinating discharge services: Time spent: Greater than 30 minutes Exam Narrative: General: In no acute distress, well nourished Eyes: right pupil 3mm, left pupil 2mm Cardiac: Normal S1 and S2. No murmur, gallops or friction rubs, peripheral pulses intact. Respiratory: Lungs with rhonchi and wheezing throughout all lung maria, currently on 2 L nasal cannula, tight productive cough Gastrointestinal: soft, non-distended, non-tender, normoactive bowel sounds. : voiding without difficulty. Neuro: Alert and oriented x4 DS: Data Data Completed and Pending Completed studies during hospitalization: chest x-ray Pending studies at discharge: blood cultures Labs on day of discharge: Labs from last 24 hours 07/07/24 07/07/24 07/07/24 11:44 08:01 05:51 WBC 12.9 H RBC 3.99 L Hgb 11.3 L Hct 35.2 L MCV 88.2 MCH 28.3 MCHC 32.1 RDW 13.7 Plt Count 228 MPV 11.0 H Sodium 140 Potassium 3.7 Chloride 103 Carbon Dioxide 33 H Anion Gap 4 BUN 32 H Creatinine 1.10 H Estim Creat Clear Calc 38 Estimated GFR 48 L Glucose 97 POC Capillary Glucose 245 H 75 Calcium 8.6 Alpha-1-AT Phenotype Pending 07/06/24 07/06/24 19:56 16:40 WBC RBC Hgb Hct MCV MCH MCHC RDW Plt Count MPV Sodium Potassium Chloride Carbon Dioxide Anion Gap BUN Creatinine Estim Creat Clear Calc Estimated GFR Glucose POC Capillary Glucose 180 H 229 H Calcium Alpha-1-AT Phenotype Preliminary micro results at discharge 07/02/24 13:19 Blood Culture - Preliminary Blood 07/02/24 13:19 Blood Culture - Preliminary Blood Procedures/Treatments: none Discharge Plan Discharge Attending physician on discharge: Smita Crane Consulting providers: Kristi Mason; Socorro Patton Discharging Clinician: Kristi Mason Anticipated Discharge Date/Time: 07/07/24 12:41 Patient Disposition: Home, Self-Care Activity: as tolerated Diet: as tolerated and diabetic Discharge Instructions: * Patient finished course of Azithromycin for preventative care * Finish your prednisone taper as directed * Follow up with Pulmonology in 2 weeks as you may need a PFT * We increased your Lantus to 60 units at night due to the steroids. After you finish taper decrease back to 50 units daily. Patient Instructions: Antibiotic Form, Heart Failure (DC), COPD (Chronic Obstructive Pulmonary Disease) (DC) Patient Language: Armenian Stand Alone Forms: General Discharge Information Follow-up/Referrals: Socorro Patton MD [Physician] - 2 Weeks [facility]EFR[facility] [Primary Care Provider] - 1 Week Discharge Medications: New insulin glargine [Lantus U-100 Insulin] 100 unit/mL Solution 60 unit subcut HS Qty: 10 0RF loratadine 10 mg Tablet 10 mg PO QAM Qty: 30 0RF prednisone 10 mg tablet 10 mg PO DAILY Qty: 30 0RF Rx Instructions: Follow taper instructions: Take 40 mg (4 pills) for next 3 days, Then decrease to 30 mg (3 pills) for next 3 days, Then decrease to 20 mg (2 pills) for the next 3 days, Then decrease to 10 mg (1 pill for next 3 days, Then discontinue Continued acetaminophen 325 mg capsule 650 mg PO Q6H PRN (Reason: Pain (Scale Score 1-3)) alprazolam 0.5 mg tablet 0.75 mg PO HS aspirin [Adult Low Dose Aspirin] 81 mg tablet,delayed release (DR/EC) 81 mg PO DAILY carvedilol [Coreg] 25 mg tablet 25 mg PO BID Rx Instructions: must administer with a meal/food donepezil 5 mg tablet 10 mg PO DAILY furosemide 20 mg tablet 20 mg PO QAM glucose [Dex4 Glucose] 4 gram tablet,chewable 4 gm PO Q15M PRN (Reason: Hypoglycemia) Rx Instructions: until symptoms of low blood sugar are controlled ipratropium-albuterol 0.5 mg-3 mg(2.5 mg base)/3 mL solution for nebulization 3 ml INHALATION Q6H PRN (Reason: Dyspnea) Januvia 100 mg tablet 100 mg PO QAM methocarbamol 750 mg tablet 750 mg PO TID PRN (Reason: Muscle Spasm) montelukast 10 mg tablet 10 mg PO HS multivitamin Tablet 1 tablet PO DAILY pantoprazole 40 mg tablet,delayed release (DR/EC) 40 mg PO DAILY paroxetine HCl 40 mg tablet 60 mg PO DAILY vitamin B complex [B Complex-Vitamin B12] Tablet 1 tablet PO DAILY Artificial Tears([id number]) 1-0.2-0.2 % Drops 1 drp EACH EYE QID PRN (Reason: Dry Eye(S)) Qty: 15 0RF fluticasone propionate 50 mcg/actuation [place],Suspension 1 spray intranasal Q12HR Qty: 16 0RF guaifenesin [Mucus Relief ER] 600 mg Tablet Extended Release 12hr 600 mg PO Q12HR Qty: 14 0RF hydrocortisone 1 % Cream 1 applic topical Q12HR PRN (Reason: itching) Qty: 28.35 0RF insulin aspart U-100 [Novolog U-100 Insulin aspart] 100 unit/mL Solution 4 - 8 unit subcut TIDWM Qty: 10 0RF Protocol: Insulin Corrective High-Dose Condition: glucose < 70 mg/dl Dose/Route: Follow hypoglycemia order Condition: glucose 70-200 mg/dl Dose/Route: No additional insulin Condition: glucose 201-250 mg/dl Dose/Route: 4 units sub-Q Condition: glucose 251-300 mg/dl Dose/Route: 5 units sub-Q Condition: glucose 301-350 mg/dl Dose/Route: 6 units sub-Q Condition: glucose 351-400 mg/dl Dose/Route: 8 units sub-Q Condition: glucose > 400 mg/dl Dose/Route: Call Protocol Text: *No Correction Dose at Bedtime* Rx Instructions: glucose < 70 mg/dl Follow hypoglycemia order; glucose 70-200 mg/dl No additional insulin; glucose 201-250 mg/dl 4 units sub-Q; glucose 251-300 mg/dl 5 units sub-Q; glucose 301-350 mg/dl 6 units sub-Q glucose 351-400 mg/dl 8 units sub-Q; glucose > 400 mg/dl Call MD [place] Creme Cream 1 applic topical DAILY Qty: 113 0RF Trelegy Ellipta 100-62.5-25 mcg blister with device 1 inh inhalation DAILY Qty: 60 0RF albuterol sulfate 90 mcg/actuation HFA aerosol inhaler 2 inhalation INHALATION 4-6XD PRN (Reason: Shortness Of Breath Or Wheezing) Qty: 8.5 0RF lidocaine 5 % cream 1 applic topical BID PRN (Reason: pain) 7 Days Qty: 28.35 0RF polyethylene glycol 3350 [Miralax] 17 gram/dose powder 17 gm PO BID PRN (Reason: Constipation) atorvastatin 20 mg Tablet 20 mg PO HS glipizide 10 mg Tablet 10 mg PO DAILY multivitamin [Daily-[place]] Tablet 1 tablet PO DAILY alprazolam 0.5 mg tablet 1 mg PO BID buspirone 10 mg tablet 20 mg PO TID Robitussin DM Max 10 ml PO Q4H PRN (Reason: Cough) biotin 2,500 mcg PO DAILY tramadol 50 mg tablet 50 mg PO Q6H PRN (Reason: Pain (Scale Score 4-6)) acetaminophen 500 mg capsule 500 mg PO QID PRN (Reason: Pain (Scale Score 4-6)) Discontinued Lantus Solostar U-100 Insulin 100 unit/mL (3 mL) insulin pen 50 unit SUB-Q HS Date of admission: 07/03/24 16:57 Primary Care Provider: YAYA,JL Admitting Provider: Renzo Sage V. Attending physician on admission: Renzo Sage V. Condition: Improved Quality VTE Prophylaxis VTE prophylaxis: pharmacologic ordered Hospitalist MIPS Heart Failure (Exclusion) Patient has history of Heart Transplant or Left Ventricular Assistive Device?: No IF YES, STOP HERE Heart Failure (Qualifier) Patient has current or prior documentation of LVEF less than or equal to 40%, or mod/servere depressed LVSF?: No IF NO, STOP HERE
[2024-07-07 16:44] LABS: Glucose Point of Care 322 mg/dl (65-105)
== END 2024-07-07 17:50 | DRG 189 ==
LOC: ANHED 21:10 → ANH2MED 22:39
PROVIDERS: Internal Medicine Critical Care Medicine; Nurse Practitioner; Nurse Practitioner Gerontology; Registered Nurse; Admitting Provider Internal Medicine; Emergency Provider Emergency Medicine; PCP Nurse Practitioner Family; Visit Provider Nurse Practitioner Acute Care
DX: J96.21 Acute and chronic respiratory failure with hypoxia (principal); J45.901 Unspecified asthma with (acute) exacerbation; J44.1 Chronic obstructive pulmonary disease with (acute) exacerbation; I13.0 Hypertensive heart and chronic kidney disease with heart failure and stage 1 through stage 4 chronic kidney disease, or unspecified chronic kidney disease; E78.5 Hyperlipidemia, unspecified; E11.65 Type 2 diabetes mellitus with hyperglycemia; E11.22 Type 2 diabetes mellitus with diabetic chronic kidney disease; F32.A Depression, unspecified; F03.90 Unspecified dementia, unspecified severity, without behavioral disturbance, psychotic disturbance, mood disturbance, and anxiety; F41.1 Generalized anxiety disorder; I50.9 Heart failure, unspecified; I25.10 Atherosclerotic heart disease of native coronary artery without angina pectoris; I25.2 Old myocardial infarction; J43.9 Emphysema, unspecified; K21.9 Gastro-esophageal reflux disease without esophagitis; N18.30 Chronic kidney disease, stage 3 unspecified; Z86.73 Personal history of transient ischemic attack (TIA), and cerebral infarction without residual deficits; Z20.822 Contact with and (suspected) exposure to COVID-19; Z79.4 Long term (current) use of insulin; Z79.84 Long term (current) use of oral hypoglycemic drugs; Z79.82 Long term (current) use of aspirin; Z99.81 Dependence on supplemental oxygen; Z90.49 Acquired absence of other specified parts of digestive tract; Z95.5 Presence of coronary angioplasty implant and graft; Z91.81 History of falling
CPT/HCPCS: 36415; 36600; 70450; 71045; 71046; 80048; 80053; 81001; 82104; 82805; 82947; 82948; 83036; 83605; 83880; 84484; 85018; 85025; 85027; 85610; 85730; 87040; 87086; 87088; 87637; 93005; 93306; 94618; 94640; 94667; 94668; 94762; 96361; 96365; 96375; 99285; A9270; G0378; J0456; J0696; J1650; J1815; J2919; J7030; J7512

== ENCOUNTER 2024-11-03 12:02 | Emergency (ER) | payer MEDICARE, MEDICAID, SELFPAY ==
--- NOTE | ~2024-11-03 | CT_ITS ---
EXAMINATION: CT abdomen pelvis w con DATE: 11/03/2024 14:02 INDICATION: Low abdominal pain. Constipation. Diarrhea. TECHNIQUE: Computed tomography (CT) of the abdomen and pelvis was performed with 100 mL Omnipaque 350 intravenous contrast. Automated exposure control and iterative reconstruction technique were employe d. The dose-length product was 663.69 mGy-cm. COMPARISON: CT abdomen and pelvis 12/02/2023 FINDINGS: The visualized portions of the lung bases demonstrate mild atelectasis. No pleural effusion . The heart size is normal. There are coronary artery calcifications. No pericardial effusion. There is a small sliding hiatal hernia. There are surgical changes of the proximal stomach. The liver, gall bladder, spleen, pancreas, and adrenal glands are normal. There is cortical thinning of the kidneys. There are cysts in left kidney measuring up to 1.7 cm. There are scattered diverticula in the colon. There is fat stranding around a diverticulum of the sigmoid colon, consistent with diverticulitis. Th e appendix is not visualized. There are no dilated loops of bowel. There are no pathologically enlarg ed lymph nodes. There is no free intraperitoneal fluid. There is severe lumbar spondylosis. 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 There is a chronic compressi on fracture of T9. IMPRESSION: 1. Acute sigmoid diverticulitis. No perforation or abscess. Reviewed, dictated and finalized at location A.
[2024-11-03 12:13] VITALS: BP 132/56; PULSE 77; RESP 18; TEMP 36.7; O2SAT 95
[2024-11-03 12:40] VITALS: BP 159/62; PULSE 74; RESP 16; O2SAT 96
[2024-11-03 13:02] LABS: Basophils Percent Auto 0.3 % (0.2-1.2); Eosinophils Absolute Auto 0.2 K/mm3 (0-0.3); Eosinophils Percent Auto 2.7 % (0-4.4); Hematocrit 32.9 % (37.0-47.0); Hemoglobin 10.5 g/dL (12.0-15.0); Immature Granulocyte Absolute 0.03 K/mm3 (0.00-0.031); Immature Granulocyte Percent A 0.4 % (0-0.5); Lymphocytes Percent Auto 17.7 % (18.3-44.2); Mean Corpuscular HGB Conc 31.9 g/dl (32-36); Mean Corpuscular Hemoglobin 27.6 pg (26-34); Mean Corpuscular Volume 86.4 fl (80-100); Mean Platelet Volume 10.8 fl (7.4-10.4); Monocytes Absolute Auto 0.7 K/mm3 (0.1-0.6); Monocytes Percent Auto 8.9 % (2.6-8.5); Neutrophils Absolute Auto 5.5 K/mm3 (1.3-6.7); Platelet Count Result 236 k/mm3 (150-375); Red Blood Count 3.81 M/mm3 (4.2-5.4); Red Cell Distribution Width 13.6 % (11.5-14.5); White Blood Count 7.9 K/mm3 (4.5-10.0)
[2024-11-03 13:17] LABS: Add Urine Microscopic? YES; Appearance Urine Cloudy (Clear); Bacteria Urine Rare /hpf; Bilirubin Urine Negative (Negative); Blood Urine Negative (Negative); Color Urine Yellow (Yellow); Glucose Urine UA Negative (Negative); Hyaline Casts Urine Present /lpf; Ketones Urine Negative (Negative); Leukocyte Esterase Ur 3+ LEU/UL (Negative); Need Manual Microscopic Reviewed; Nitrate Urine Negative (Negative); Protein Urine Trace mg/dL (Negative); RBC Urine 0-2 /hpf (0-2); Specific Grav Ur 1.015 (1.001-1.035); Squamous Epithelial Cell Urine Occasional /hpf (Few); Urobilinogen Urine 0.2 mg/dL (<2.0); WBC Urine >100 /hpf (0-3); pH Urine 5.5 (5.0-9.0)
[2024-11-03 13:20] LABS: Alanine Aminotransferase 21 U/L (6-35); Albumin Level 3.8 g/dL (3.5-5.1); Alkaline Phosphatase 98 U/L (38-126); Anion Gap 11 mmol/L (4-12); Aspartate Amino Transferase 24 U/L (14-36); Bilirubin,Total 0.5 mg/dL (0.2-1.3); Blood Urea Nitrogen 19 mg/dL (7-17); Calcium 8.8 mg/dL (8.4-10.2); Carbon Dioxide 26 mmol/L (22-30); Chloride 97 mmol/L (98-107); Estimated CRCL calculation 36 ml/min; Estimated Glomerular Filt Rate 46; Glucose 255 mg/dL (65-110); Lipase 62 U/L (23-300); Sodium 134 mmol/L (137-145)
--- NOTE | 2024-11-03 13:28 | ED_ITS ---
HPI - General Adult General Chief complaint: Nausea/Vomiting/Diarrhea Stated complaint: N/V/D x 3-4 days Time Seen by Provider: 11/03/24 12:45 History of Present Illness HPI narrative: 79-year-old female present to the emergency department for evaluation for complaints of nausea vomiting and alternating constipation and diarrhea. Patient states she had some recent diarrhea and took Imodium and then she was having persisting counts patient's so she start taking MiraLax. Patient states that she has had some bowel movements today but also had some nausea and vomiting today. Patient states that she did have some rectal bleeding today and is having some suprapubic abdominal pain. Related Data Home Medications ?Medication ?Instructions ?Recorded ?Confirmed ?Last Taken ?Type acetaminophen 325 mg capsule 650 mg PO Q6H PRN Pain (Scale 10/14/19 07/02/24 09/27/21 History Score 1-3) alprazolam 0.5 mg tablet 0.75 mg PO HS 10/14/19 07/02/24 09/28/21 History aspirin 81 mg tablet,delayed 81 mg PO DAILY 10/14/19 08/13/24 09/25/21 History release (Adult Low Dose Aspirin) carvedilol 25 mg tablet (Coreg) 25 mg PO BID 10/14/19 08/13/24 09/28/21 History donepezil 5 mg tablet 10 mg PO DAILY 10/14/19 08/13/24 09/27/21 History furosemide 20 mg tablet 20 mg PO QAM 10/14/19 07/02/24 09/27/21 History glucose 4 gram chewable tablet 4 gm PO Q15M PRN Hypoglycemia 10/14/19 07/02/24 09/27/21 History (Dex4 Glucose) ipratropium 0.5 mg-albuterol 3 mg 3 ml inhalation Q6H PRN Dyspnea 10/14/19 08/13/24 Unknown History (2.5 mg base)/3 mL nebulization soln methocarbamol 750 mg tablet 750 mg PO TID PRN Muscle Spasm 10/14/19 08/13/24 09/27/21 History montelukast 10 mg tablet 10 mg PO HS 10/14/19 08/13/24 09/27/21 History multivitamin 1 tablet PO DAILY 10/14/19 07/02/24 09/25/21 History pantoprazole 40 mg tablet,delayed 40 mg PO DAILY 10/14/19 08/13/24 09/27/21 History release paroxetine HCl 40 mg tablet 60 mg PO DAILY 10/14/19 08/13/24 09/28/21 History sitagliptin phosphate 100 mg 100 mg PO QAM 10/14/19 07/02/24 09/27/21 History tablet (Januvia) vitamin B complex (B 1 tablet PO DAILY 10/14/19 08/13/24 09/25/21 History Complex-Vitamin B12 tablet) polyethylene glycol 3350 17 17 gm PO BID PRN Constipation 09/18/21 08/13/24 09/27/21 History gram/dose oral powder (Miralax) atorvastatin 20 mg tablet 20 mg PO HS 04/23/22 08/13/24 Unknown History glipizide 10 mg tablet 10 mg PO DAILY 04/23/22 08/13/24 Unknown History Robitussin DM Max 10 ml PO Q4H PRN Cough 07/02/24 07/02/24 Unknown History acetaminophen 500 mg capsule 500 mg PO QID PRN Pain (Scale 07/02/24 08/13/24 Unknown History Score 4-6) alprazolam 0.5 mg tablet 1 mg PO BID 07/02/24 08/13/24 Unknown History biotin 2,500 mcg PO DAILY 07/02/24 08/13/24 Unknown History buspirone 10 mg tablet 20 mg PO TID 07/02/24 07/02/24 Unknown History multivitamin (Daily-Urbano tablet) 1 tablet PO DAILY 07/02/24 08/13/24 Unknown History tramadol 50 mg tablet 50 mg PO Q6H PRN Pain (Scale Score 07/02/24 08/13/24 Unknown History 4-6) Allergies Allergy/AdvReac Type Severity Reaction Status Date / Time meperidine AdvReac Mild Diarrhea Verified 11/03/24 12:03 Review of Systems 2 Review of Systems: All systems reviewed & are unremarkable except as noted in HPI and below PMFSH Past Medical History Medical History COPD exacerbation Asthma-COPD overlap syndrome Chronic respiratory failure with hypoxia, on home oxygen therapy Chronic kidney disease, stage 3 Insulin dependent type 2 diabetes mellitus Dyslipidemia Hypertension Gastroesophageal reflux disease Congestive heart failure Cerebrovascular accident Coronary artery disease Anemia Anxiety Depression Arthritis Colitis Hiatal hernia Gastric ulcer Pneumonia Asthma Myocardial infarction Surgical History Surgical History History of sinus surgery History of bladder suspension procedure History of tubal ligation History of hysterectomy History of coronary artery stent placement History of dilation and curettage History of cardiac catheterization History of colonoscopy with polypectomy History of appendectomy Family History Family History Mother Family history of diabetes mellitus in first degree relative Family history of primary malignant neoplasm of liver Family history of heart disease in male family member before age 55 Family history of hearing loss Family history of liver disease Diabetes mellitus Cerebrovascular accident Family history of pancreatic cancer Hypertension Father Family history of emphysema Sibling Diabetes mellitus Other Depression Family history of alcoholism Family history of allergic disorder Family history of arthritis Family history of cardiovascular disease Family history of coronary artery disease Family history of malignant neoplasm Family history of mental disorder Family history of osteoporosis Social History Social History Social History: Healthcare power of tax attorney: Alistair Martínez. Code status: Full code. Smoking status: Never smoker Second hand tobacco smoke exposure: Yes Alcohol intake: never Alcohol use details: History of alcohol abuse, none since 2014. Substance use: never Do You Feel Safe in your Home?: Yes Lack of Transportation: No Lack of Food: Never True Current Housing: I Have Housing Concerned About Future Housing: No Difficulty Paying Gas/Electric Bills: No Difficulty Paying for Meds: No Currently Unemployed: No Education: High School Diploma/GED Difficulty w/ Childcare or Family Care: No Living arrangements: assisted living Additional living arrangements comments: Assisted living at [facility]. Occupation/Education: retired Gender identity (if verbalized by the patient): Female Spiritual care concerns: No Exam 2 Narrative: APPEARANCE: Well appearing, no pain, no distress, well-nourished. HEAD: normocephalic, atraumatic. EYES: PERRLA/EOMI, conjunctivae clear. NOSE: Normal no drainage EARS:TMS clear with good light reflex. THROAT: Pharynx clear, no exudate. NECK: Supple. No adenopathy, no masses. RESPIRATORY: Airway patent, respirations nonlabored. Clear to auscultation bilaterally, no rales, rhonchi, wheezing. CARDIOVASCULAR: Regular rate and rhythm without murmurs rubs or gallops. ABDOMINAL: Suprapubic abdominal pain MUSCULOSKELETAL: Moves all extremities. Strength/ROM intact, No edema, No calf tenderness. NEURO: Alert. Cranial nerves II through XII intact. Grossly intact SKIN: Warm, dry. Normal Color Course Vital Signs Vital signs: Vital Signs Temperature 98.0 F 11/03/24 12:13 Pulse Rate 77 11/03/24 12:13 Respiratory Rate 18 11/03/24 12:13 Blood Pressure 132/56 L 11/03/24 12:13 Pulse Oximetry 95 11/03/24 12:13 Temperature 98.0 F 11/03/24 12:13 Pulse Rate 84 11/03/24 15:35 Respiratory Rate 16 11/03/24 15:35 Blood Pressure 125/74 11/03/24 15:35 Pulse Oximetry 97 11/03/24 15:35 Medical Decision Making MDM Narrative Medical decision making narrative: 79-year-old female present to the emergency department for evaluation for alternating constipation and diarrhea with some bleeding in her stool. Patient is currently afebrile with no leukocytosis and hemoglobin of 10.5 which is similar to her baseline. Patient's creatinine is similar to her baseline with no significant abnormalities on her CMP. Patient's UA was concerning for infection due to greater than 100 white blood cells and leukocyte esterase positive. CT scan showed evidence uncomplicated diverticulitis. Patient will be started on Cipro Flagyl to cover both the urinary tract infection and the diverticulitis. Patient was updated results of workup patient was comfortable plan for discharge to her care facility and close follow-up with primary care physician. Patient was educated on reasons to return to the emergency department. All questions and concerns were addressed. Differential Diagnosis Differential Diagnosis: Colitis, diverticulitis, UTI, COVID, RSV, influenza Vital Signs Vital Signs: Vital Signs Temperature 98.0 F 11/03/24 12:13 Pulse Rate 77 11/03/24 12:13 Respiratory Rate 18 11/03/24 12:13 Blood Pressure 132/56 L 11/03/24 12:13 Pulse Oximetry 95 11/03/24 12:13 Temperature 98.0 F 11/03/24 12:13 Pulse Rate 84 11/03/24 15:35 Respiratory Rate 16 11/03/24 15:35 Blood Pressure 125/74 03/25/25 15:35 Pulse Oximetry 97 11/03/24 15:35 Lab Data Lab results reviewed: Yes I reviewed the patient's lab results. 11/03/24 12:53 11/03/24 12:53 Labs: Lab Results 11/03/24 Range/Units 12:53 WBC 7.9 (4.5-10.0) K/mm3 RBC 3.81 L (4.2-5.4) M/mm3 Hgb 10.5 L (12.0-15.0) g/dL Hct 32.9 L (37.0-47.0) % MCV 86.4 (80-100) fl MCH 27.6 (26-34) pg MCHC 31.9 L (32-36) g/dl RDW 13.6 (11.5-14.5) % Plt Count 236 (150-375) k/mm3 MPV 10.8 H (7.4-10.4) fl Immature Gran % (Auto) 0.4 (0-0.5) % Neut % (Auto) 70.0 (45.5-73.1) % Lymph % (Auto) 17.7 L (18.3-44.2) % [place] % (Auto) 8.9 H (2.6-8.5) % Eos % (Auto) 2.7 (0-4.4) % Baso % (Auto) 0.3 (0.2-1.2) % Lymph # (Auto) 1.40 (0.9-3.2) K/mm3 [place] # (Auto) 0.7 H (0.1-0.6) K/mm3 Eos # (Auto) 0.2 (0-0.3) K/mm3 Baso # (Auto) 0.0 (0.0-0.1) K/mm3 Abs Immat Gran (auto) 0.03 (0.00-0.031) K/mm3 Absolute Neuts (auto) 5.5 (1.3-6.7) K/mm3 Absolute Nucleated RBC 0.000 (0.0-0.012) K/mm3 Nucleated RBC % 0.0 (0.0-0.2) % Sodium 134 L (137-145) mmol/L Potassium 4.0 (3.4-5.0) mmol/L Chloride 97 L (98-107) mmol/L Carbon Dioxide 26 (22-30) mmol/L Anion Gap 11 (4-12) mmol/L BUN 19 H D (7-17) mg/dL Creatinine 1.14 H (0.7-1.0) mg/dL Estim Creat Clear Calc 36 ml/min Estimated GFR 46 L (59 - ) Glucose 255 H (65-110) mg/dL Calcium 8.8 (8.4-10.2) mg/dL Magnesium 1.6 (1.6-2.3) mg/dL Total Bilirubin 0.5 (0.2-1.3) mg/dL AST 24 (14-36) U/L ALT 21 (6-35) U/L Alkaline Phosphatase 98 (38-126) U/L Total Protein 6.0 L (6.3-8.2) g/dL Albumin 3.8 (3.5-5.1) g/dL Lipase 62 (23-300) U/L Urine Color Yellow (Yellow) Urine Appearance Cloudy H (Clear) Urine pH 5.5 (5.0-9.0) Ur Specific [place] 1.015 (1.001-1.035) Urine Protein Trace (Negative) mg/dL Urine Glucose (UA) Negative (Negative) mg/dL Urine Ketones Negative (Negative) mg/dL Ur Blood (Man) Negative (Negative) Urine Nitrate Negative (Negative) Urine Bilirubin Negative (Negative) Urine Urobilinogen 0.2 (<2.0) mg/dL Add Ur Microanalysis Reviewed Leukocyte Esterase Rfl 3+ H (Negative) TENA/UL Urine RBC 0-2 (0-2) /hpf Urine WBC >100 H (0-3) /hpf Ur Squamous Epith Cells Occasional (Few) /hpf Urine Bacteria Rare /hpf Urine Casts 11-20 Hyaline Casts Present (None) /lpf Imaging Data Radiologist's impression: Impressions Abdomen/Pelvis CT 11/03/24 14:11 IMPRESSION: 1. Acute sigmoid diverticulitis. No perforation or abscess. Discharge Plan Discharge Clinical Impression: Urinary tract infection, Diverticulitis Patient Disposition: Home, Self-Care Condition: Stable Instructions: Antibiotic Form, Diverticulitis (DC), Urinary Tract Infection in Women (DC) Additional Instructions: Antibiotic as directed for both the urinary tract infection and the diverticulitis. Do not take Imodium for any further diarrhea. If you are having diarrhea then I recommend switching to a clear liquid diet for the next 3-5 days. If you are having constipation then use MiraLax. Zofran as needed for nausea control. Have close follow-up with your primary care physician. If you have any worsening symptoms then please call or return to the emergency department. Patient Language: Pashto Prescriptions: New ciprofloxacin HCl [Cipro] 500 mg tablet 500 mg PO Q12H 7 Days Qty: 14 0RF metronidazole 500 mg tablet 500 mg PO Q12H 7 Days Qty: 14 0RF ondansetron 4 mg tablet,disintegrating 4 mg PO Q8H PRN (Reason: nausea and vomiting) Qty: 14 0RF No Action acetaminophen 325 mg capsule 650 mg PO Q6H PRN (Reason: Pain (Scale Score 1-3)) alprazolam 0.5 mg tablet 0.75 mg PO HS aspirin [Adult Low Dose Aspirin] 81 mg tablet,delayed release (DR/EC) 81 mg PO DAILY carvedilol [Coreg] 25 mg tablet 25 mg PO BID Rx Instructions: must administer with a meal/food donepezil 5 mg tablet 10 mg PO DAILY furosemide 20 mg tablet 20 mg PO QAM glucose [Dex4 Glucose] 4 gram tablet,chewable 4 gm PO Q15M PRN (Reason: Hypoglycemia) Rx Instructions: until symptoms of low blood sugar are controlled ipratropium-albuterol 0.5 mg-3 mg(2.5 mg base)/3 mL solution for nebulization 3 ml INHALATION Q6H PRN (Reason: Dyspnea) Januvia 100 mg tablet 100 mg PO QAM methocarbamol 750 mg tablet 750 mg PO TID PRN (Reason: Muscle Spasm) montelukast 10 mg tablet 10 mg PO HS multivitamin Tablet 1 tablet PO DAILY pantoprazole 40 mg tablet,delayed release (DR/EC) 40 mg PO DAILY paroxetine HCl 40 mg tablet 60 mg PO DAILY vitamin B complex [B Complex-Vitamin B12] Tablet 1 tablet PO DAILY diclofenac sodium 75 mg tablet,delayed release (DR/EC) 75 mg PO BID Qty: 60 0RF Artificial Tears([id number]) 1-0.2-0.2 % Drops 1 drp EACH EYE QID PRN (Reason: Dry Eye(S)) Qty: 15 0RF fluticasone propionate 50 mcg/actuation [place],Suspension 1 spray intranasal Q12HR Qty: 16 0RF guaifenesin [Mucus Relief ER] 600 mg Tablet Extended Release 12hr 600 mg PO Q12HR Qty: 14 0RF hydrocortisone 1 % Cream 1 applic topical Q12HR PRN (Reason: itching) Qty: 28.35 0RF insulin aspart U-100 [Novolog U-100 Insulin aspart] 100 unit/mL Solution 4 - 8 unit subcut TIDWM Qty: 10 0RF Protocol: Insulin Corrective High-Dose Condition: glucose < 70 mg/dl Dose/Route: Follow hypoglycemia order Condition: glucose 70-200 mg/dl Dose/Route: No additional insulin Condition: glucose 201-250 mg/dl Dose/Route: 4 units sub-Q Condition: glucose 251-300 mg/dl Dose/Route: 5 units sub-Q Condition: glucose 301-350 mg/dl Dose/Route: 6 units sub-Q Condition: glucose 351-400 mg/dl Dose/Route: 8 units sub-Q Condition: glucose > 400 mg/dl Dose/Route: Call Protocol Text: *No Correction Dose at Bedtime* Rx Instructions: glucose < 70 mg/dl Follow hypoglycemia order; glucose 70-200 mg/dl No additional insulin; glucose 201-250 mg/dl 4 units sub-Q; glucose 251-300 mg/dl 5 units sub-Q; glucose 301-350 mg/dl 6 units sub-Q glucose 351-400 mg/dl 8 units sub-Q; glucose > 400 mg/dl Call Minermayur Creme Cream 1 applic topical DAILY Qty: 113 0RF Trelegy Ellipta 100-62.5-25 mcg blister with device 1 inh inhalation DAILY Qty: 60 0RF albuterol sulfate 90 mcg/actuation HFA aerosol inhaler 2 inhalation INHALATION 4-6XD PRN (Reason: Shortness Of Breath Or Wheezing) Qty: 8.5 0RF lidocaine 5 % cream 1 applic topical BID PRN (Reason: pain) 7 Days Qty: 28.35 0RF polyethylene glycol 3350 [Miralax] 17 gram/dose powder 17 gm PO BID PRN (Reason: Constipation) atorvastatin 20 mg Tablet 20 mg PO HS glipizide 10 mg Tablet 10 mg PO DAILY multivitamin [Daily-Urbano] Tablet 1 tablet PO DAILY alprazolam 0.5 mg tablet 1 mg PO BID buspirone 10 mg tablet 20 mg PO TID Robitussin DM Max 10 ml PO Q4H PRN (Reason: Cough) biotin 2,500 mcg PO DAILY tramadol 50 mg tablet 50 mg PO Q6H PRN (Reason: Pain (Scale Score 4-6)) acetaminophen 500 mg capsule 500 mg PO QID PRN (Reason: Pain (Scale Score 4-6)) insulin glargine [Lantus U-100 Insulin] 100 unit/mL Solution 60 unit subcut HS Qty: 10 0RF loratadine 10 mg Tablet 10 mg PO QAM Qty: 30 0RF prednisone 10 mg tablet 10 mg PO DAILY Qty: 30 0RF Rx Instructions: Follow taper instructions: Take 40 mg (4 pills) for next 3 days, Then decrease to 30 mg (3 pills) for next 3 days, Then decrease to 20 mg (2 pills) for the next 3 days, Then decrease to 10 mg (1 pill for next 3 days, Then discontinue Follow-up/Referrals: YAYA,EFREN PARIKH [Primary Care Provider] -
[2024-11-03 13:43] LABS: Magnesium 1.6 mg/dL (1.6-2.3)
--- OUTSIDE RECORDS SUMMARY | 2024-11-03 14:07 | XMS_ITS | Encounter Summary ---
Author Organization [facility] Address [facility] [place] [address] Care Team Providers Care Land Checker Name Role Phone Karen Reyna Primary Care Provider [phone] Jenna Joyce MD Unavailable Encounter Details Date Type Department Care Team (Late st Contact Info) Description 03/09/2024 [employer] Message Enc [facility] Multispecialty Care - [address], [address] [place] [address] Kris, [facility] Provider Lab Results Social History Tobacco Use Types Packs/Day Years Used Date Smoking Tobacco: Never Smokeless Tobacco: Never Alcohol Use Standard Drinks/Week Comments No 0 (1 standard drink = 0.6 oz pur e alcohol) PHQ-2 Answer Date Recorded Patient Health Questionnaire-2 Score 1 10/15/2023 Comments No Sex and Gender Information Value Date Recorded Sex Assigned at Not on file Legal Sex Female 6:46 PM CDT Gender Identity Not on file Sexual Orientation Not on file documented as of this encounter Plan of Treatment Not on file documented as of this encounter Goals Goal Patient Goal Type Associated Problems Recent Progress Patient-Stated? 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
--- OUTSIDE RECORDS SUMMARY | 2024-11-03 14:07 | XMS_ITS | Encounter Summary ---
Author Organization [facility] Address [facility] [place] [address] Care Team Providers Care Section Maintainer Name Role Phone Christian Cabezas MD Primary Care Provider Karen Chisholm Primary Care Provider [phone] Kenyatta Salamanca RN Unavailable [phone] Adam Ramirez MD Unavailable [phone] Edie Groves RN Unavailable [phone] Jenna Joyce MD Unavailable Encounter Details Date Type Department Care Team (Latest Contact Info) Description 03/27/2018 Abstract [facility] Jt Dos Santos MD Social History Tobacco Use Types Packs/Day Years Used Date Smoking Tobacco: Never Assessed Comments Unknown Sex and Gender Information Value Date Recorded Sex Assigned at Not on file Legal Sex Female 6:46 PM CDT Gender Identity Not on file Sexual Orientation Not on file documented as of this encounter Plan of Treatment Not on file documented as of this encounter Visit Diagnoses Not on filedocumented in this encounter Care Teams Section Maintainer Relationship Specialty Start Date End Date Christian Cabezas MD PCP - General 10/22/16 07/21/18 Karen Reyna FNP [address] [place] [id number] PCP - General Nurse Practitioner Family 07/22/18 Adam Ramirez MD [address] [place] [phone] PCP - Hospice Attending 07/22/18 07/14/19 Kenyatta Salamanca RN [address] [place] [address] Drawing Kiln Supervisor (Ambulatory) REGISTERED NURSE 12/24/18 01/12/19 Edie Groves, RN [address] [address] Registered Nurse CARE MANAGEMENT 04/25/22 09/03/22 Jenna Joyce MD [address] [place] [id number] Consulting Physician GENERAL SURGERY 07/25/23 07/25/24 documented as of this encounter
--- OUTSIDE RECORDS SUMMARY | 2024-11-03 14:07 | XMS_ITS | Encounter Summary ---
Author Organization [facility] Address [facility] [place] [address] Care Team Providers Care Auditor Internal Name Role Phone Karen Reyan Primary Care Provider [phone] Jenna Jyoce MD Unavailable Encounter Details Date Type Department Care Team (Late st Contact Info) Description 03/24/2024 [employer] Message Enc [facility] Medical Group Multispecialty Care - [address], [address] [place] [address] Kris, [facility] Provider EMG result Social History Tobacco Use Types Packs/Day Years [...] Total Score: 4 10/15/19 24 8:48 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
--- OUTSIDE RECORDS SUMMARY | 2024-11-03 14:07 | XMS_ITS | Encounter Summary ---
Author Organization [facility] Address [facility] [place] [address] Care Team Providers Care Sleeping Room Cleaner Name Role Phone Karen Reyna Primary Care Provider Edie Groves RN Unavailable [phone] Jenna Joyce MD Unavailable Encounter Details Date Type Department Care Team (Late st Contact Info) Description 07/26/2022 [employer] Message Enc [facility] [address] [address] Kris, [facility] Provider Stress test Social History Tobacco Use Types Packs/Day Years Used Date Smoking Tobacco: Never Smokeless Tobacco: Never Alcohol Use Standard Drinks/Week Comments No 0 (1 standard drink = 0.6 oz pur e alcohol) PHQ-2 Answer Date Recorded PHQ-2 Score - If the patient scores above 3, please move on to questions 3-9 0 07/12/2022 Comments No Sex and Gender Information Value Date Recorded Sex Assigned at Not on file Legal Sex Female 6:46 PM CDT Gender Identity Not on file Sexual Orientation Not on file COVID-19 Exposure Response Date Recorded In the last 10 days, have yo u been in contact with someone who was confirmed or suspected to have Coronavirus/COVID-19? No / Unsure 07/26/2022 9:56 AM MACHINE STAPLER documented as of this encounter Plan of Treatment Not on file documented as of this encounter Goals Goal Patient Goal Type Associated Problems Recent Progress Patient-Stated? Author Consistently take medications as Prescribed Lifestyle Not on track( 10:46 AM CDT) No Edie Groves, RN Establish Plan for Symptom Monitoring Lifestyle On track( 10:46 AM CDT) No Edie Groves, RN documented as of this encounter Visit Diagnoses Not on filedocumented in this encounter Additional Health Concerns Assessment Noted Time PHQ-9 Depression Total Score: 7 06/15/20 22 10:15 AM CDT documented as of this encounter Care Teams Sleeping Room Cleaner Relationship Specialty Start Date End Date Karen Reyna FNP [address] [place] [phone] PCP - General Nurse Practitioner Family 07/22/18 Edie Groves, RN [address] [address] Registered Nurse CARE MANAGEMENT 04/25/22 09/03/22 Jenna Joyce MD [address] [place] [phone] Consulting Physician GENERAL SURGERY 07/25/23 07/25/24 documented as of this encounter
--- OUTSIDE RECORDS SUMMARY | 2024-11-03 14:07 | XMS_ITS | Encounter Summary ---
Author Organization [facility] Address [address] [place] [address] Care Team Providers Care Police Liaison Officer Name Role Phone Karen Reyna JEFEFRY Primary Care Provider [phone] Encounter Details Date Type Department Care Team (Latest Contact Info) Description 07/31/[address] 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
--- OUTSIDE RECORDS SUMMARY | 2024-11-03 14:07 | XMS_ITS | Clinical Summary ---
Author Organization [facility] Address [address] [place] [address] Care Team Providers Care Basic Sciences Professor Name Role Phone Karen Reyna JEFFERY Primary Care Provider [phone] Allergies Active Allergy Reactions Criticality Noted Date Comments Meperidine Diarrhea,Nausea Only,Unknown,Vomiting 05/17/2015 Medications Insulin Syringe-Needle U-100 (INSULIN SYRINGE 1CC/31GX5/16 ) 31G X 5/16 1 ML Misc USE UTD 0 2017 Active SOFTCLIX LANCETS MiscIndications: diabetes 1 Application by Other route as needed. Indications: diabetes 2017 Active Nebulizers (INNOSPIRE ESSENCE NEBULIZER) Misc USE TO NEBULIZE CONTENTS OF VIALS Q 4 TO 6 H FOR SOB 0 2017 Active Foot Care Products CreamIndications :foot health Apply 1 Application topically as needed. Indications: foot health 2018 Active Incontinence Supply Disposable (CLEANSING CLOTHS FLUSHABLE) MiscIndications: skin health Apply 1 Application topically as needed. Indications: skin health 2018 Active B Complex Vitamins (VITAMIN B COMPLEX OR)Indications:s uppliment Take 1 tablet by mouth daily. 2018 Active hydrALAZINE 25 MG tabletIndication s:Essential hypertension Take 1 tablet (25 mg total) by mouth 3 (three) times daily. 180 tablet 1 2018 Active Lancets MiscIndications: Type 2 diabetes 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, with long-term current use of insulin ([facility]) 1 Units by Does not apply route 3 (three) times daily. 300 Container 2018 Active Additional Information Patient taking differently:1 Units Does not apply 3 times daily,Indications: diabetes, Reported on 07/28/2024 Alcohol Swabs (ALCOHOL PREP) 70 % PadsIndications: Type 2 diabetes 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, with long-term current use of insulin ([facility]) Use as directed three times daily 300 each 2018 Active Additional Information Patient taking differently:, Use as directed three times daily,Indications: Diabetes Mellitus, Reported on 07/28/2024 magnesium oxide (MAG-OX) 400 (240 Mg) MG tabletIndication s:08/23/22 per [facility] instructions Take 1 tablet (400 mg total) by mouth daily. Indications: 08/23/22 per [facility] instructions 2021 Active gabapentin (NEURONTIN) 100 MG capsuleIndicatio ns:Sciatica Take 1 capsule (100 mg total) by mouth every evening. 90 capsule 1 2021 Active hydrocortisone (CORTIZONE) 1 % creamIndications :08/23/22 per [facility] instructions Apply topically 2 (two) times daily as needed (itching). Indications: 08/23/22 per [facility] instructions Active Multiple Vitamins-Iron (MULTI-VITAMIN/I BASHIR) TabIndications:s uppliment Indications: suppliment Take one tablet daily 90 tablet 3 2022 Active Blood Glucose Monitoring Suppl (ONETOUCH VERIO) w/Device KitIndications:T ype 2 diabetes 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, with long-term current use of insulin ([facility]) Use to check blood glucose TID for diabetes 1 kit 2023 Active Glucose Blood (ACCU-CHEK GUIDE) test stripIndications :Type 2 diabetes 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, with long-term current use of insulin ([facility]) DIABETIC TESTING SUPPLY: USE THREE TIMES DAILY 300 strip 2023 Active glycerin-hyprome llose-PEG 400 (ARTIFICIAL TEARS) 0.2-0.2-1 % ophthalmic solutionIndicati ons:08/23/[address] [facility] [address] 1 drop into both eyes 4 (four) times daily as needed (dry eyes). Indications: 08/23/22 per [facility] instructions 30 mL 1 2023 Active Insulin Pen Needle (NOVOFINE AUTOCOVER PEN NEEDLE) 30G X 8 MM MiscIndications: Type 2 diabetes 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, with long-term current use of insulin ([facility]) Use with insulin 4 times daily 400 each 2023 Active nitroglycerin (NITROSTAT) 0.4 MG SL tabletIndication s:Angina Pectoris Place 1 tablet (0.4 mg total) under the tongue every 5 (five) minutes as needed for Chest Pain. Indications: Angina Pectoris May repeat a total of 3 times 90 tablet 1 2023 Active ondansetron (ZOFRAN-ODT) 4 MG disintegrating tabletIndication s:04/26/22 per [facility] instructions Take 1 tablet (4 mg total) by mouth every 8 (eight) hours as needed for Nausea. Indications: 04/26/22 per [facility] instructions 20 tablet 2023 Active OXYGENIndication s:Unilateral emphysema ([facility]) 2 L/min by Nasal route nightly at bedtime. 1 Device 11 2023 Active phenylephrine-co coa butter (PREPARATION H) 0.25-88.44 % suppositoryIndic ations:Hemorrhoi ds, unspecified hemorrhoid type Place 1 suppository rectally 4 (four) times daily as needed for Hemorrhoids. 30 suppository 2 2023 Active Skin Protectants, Misc. (MINERIN) CreamIndications :08/23/22 per [facility] instructions Apply topically daily. Indications: 08/23/22 per [facility] instructions 113 g 1 2023 Active sodium chloride (OCEAN) 0.65 % SolutionIndicati ons:08/23/22 per [facility] instructions 1 spray by Each Nostril route every 6 (six) hours as needed for Dryness. Indications: 08/23/22 per [facility] instructions 30 mL 2 2023 Active TRUEPLUS GLUCOSE ON THE GO 4 g chewable tabletIndication s:08/23/22 per [facility] instructions Chew 1 tablet (4 g total) by mouth as needed for Low blood sugar. Indications: 08/23/22 per [facility] instructions 1 q 15min as needed until low blood sugar resolved 90 tablet 2 2023 Active RECTASMOOTHE 5 % cream 2022 Active albuterol sulfate HFA 108 (90 Base) MCG/ACT inhaler Inhale 2 puffs into the lungs. Active hydrocortisone (PROCTO-MED HC) 2.5 % rectal creamIndications :Hemorrhoids, unspecified hemorrhoid type APPLY RECTALLY FOUR TIMES DAILY NEEDED 28 g 6 2023 Active donepezil (ARICEPT) 10 MG TabIndications:M ild cognitive disorder Take 1 tablet (10 mg total) by mouth nightly at bedtime. 30 tablet 11 2023 Active Biotin 2500 MCG Chew TabIndications:T hinning hair Chew 2,500 mcg by mouth daily. Hair Skin and Nails 90 tablet 3 2023 Active Fluticasone-Umec lidin-Vilant (TRELEGY ELLIPTA) 100-62.5-25 MCG/ACT AEROSOL POWDER, BREATH ACTIVATEDIndicat ions:Unilateral emphysema ([facility] HHS/HCC) inhale 1 puff by mouth daily 60 each 6 2023 Active glipiZIDE XL (GLUCOTROL XL) 10 MG 24 hr tabletIndication s:GERD (gastroesophagea l reflux disease),Type 2 diabetes 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, with long-term current use of insulin ([facility]),General ized anxiety disorder with panic attacks,Other hyperlipidemia,A nxiety,Essential hypertension,Dem entia ([facility]),Allerg ic,Unilateral emphysema ([facility]/HCC),Muscle spasms of both lower extremities,Naus ea,Chronic bilateral low back pain with bilateral sciatica,Cough,A nemia take 1 tablet by mouth once daily 90 tablet 1 2023 Active polyethylene glycol (GLYCOLAX) 17 GM/SCOOP powderIndication s:Chronic constipation MIX 17GM (TO MEASURED LINE) IN 240 OZ. OF WATER DAILY 238 g 2023 Active diclofenac sodium (VOLTAREN) 1 % gelIndications:C hronic right shoulder pain Apply 2 g topically 4 (four) times daily. 50 g 2 2023 Active Continuous Glucose Consumer Loan Underwriter (FREESTYLE MARYCARMEN 3 READER) DeviceIndication s:Type 2 diabetes 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, with long-term current use of insulin ([facility]) One reader to use for CGM 1 each 2023 Active Continuous Glucose Sensor (FREESTYLE MARYCARMEN 3 SENSOR) MiscIndications: Type 2 diabetes 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, with long-term current use of insulin ([facility]) Apply one sensor every 14 days 6 each 3 2023 Active Multiple Vitamins-Iron (MULTI-VITAMIN/I BASHIR) TabIndications:I bashir deficiency anemia due to chronic blood loss Take one tablet daily 90 tablet 3 2023 Active aspirin 81 MG chewable tabletIndication s:Other hyperlipidemia take 1 tablet by mouth once daily 90 tablet 2023 Active guaiFENesin ER 1200 MG TABLET SR 12 HR 12 hr tabletIndication s:Cough Take 1,200 mg by mouth 2 (two) times a day. 28 tablet 2023 Active acetaminophen (TYLENOL) 325 MG tabletIndication s:Chronic bilateral low back pain without sciatica TAKE 2 TABLETS BY MOUTH EVERY 6 HOURS NEEDED FOR PAIN 60 tablet 2024 Active ALPRAZolam (XANAX) 1 MG tabletIndication s:Generalized anxiety disorder with panic attacks Take 1 tablet (1 mg total) by mouth 2 (two) times daily. 60 tablet 2024 Active fluticasone propionate (FLONASE) 50 MCG/ACT nasal sprayIndications :Allergic INSTILL 1 SPRAY INTO EACH NOSTRIL EVERY 12 HOURS 16 g 3 2024 Active pantoprazole EC (PROTONIX) 40 MG tabletIndication s:GERD (gastroesophagea l reflux disease) TAKE 1 TABLET BY MOUTH ONCE DAILY 30 tablet 1 2024 Active SITagliptin (JANUVIA) 100 MG tabletIndication s:Type 2 diabetes 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, with long-term current use of insulin ([facility]) TAKE 1 TABLET BY MOUTH ONCE DAILY 30 tablet 1 2024 Active furosemide (LASIX) 20 MG tabletIndication s:Essential hypertension TAKE 1 TABLET BY MOUTH ONCE DAILY 30 tablet 1 2024 Active carvedilol (COREG) 25 MG tabletIndication s:Essential hypertension TAKE 1 TABLET BY MOUTH TWICE DAILY 60 tablet 1 2024 Active atorvastatin (LIPITOR) 20 MG tabletIndication s:Other hyperlipidemia TAKE 1 TABLET BY MOUTH ONCE DAILY 30 tablet 1 2024 Active multiple vitamin (TAB-A-WILLOW) TabIndications:V itamin D deficiency TAKE 1 TABLET BY MOUTH ONCE DAILY 30 tablet 1 2024 Active busPIRone (BUSPAR) 10 MG tabletIndication s:Anxiety TAKE 2 TABLETS BY MOUTH THREE TIMES DAILY 180 tablet 1 2024 Active montelukast (SINGULAIR) 10 MG tabletIndication s:Cough TAKE 1 TABLET BY MOUTH EVERY EVENING 30 tablet 1 2024 Active aspirin EC (ASPIRIN LOW DOSE) 81 MG tabletIndication s:Essential hypertension TAKE 1 TABLET BY MOUTH ONCE DAILY 30 tablet 1 2024 Active glipiZIDE (GLUCOTROL) 10 MG tabletIndication s:Type 2 diabetes 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, with long-term current use of insulin ([facility]) TAKE 1 TABLET BY MOUTH ONCE DAILY 30 tablet 1 2024 Active PARoxetine (PAXIL) 20 MG tabletIndication s:Anxiety TAKE 1 TABLET BY MOUTH DAILY WITH 40MG=60MG DOSE 30 tablet 1 2024 Active PARoxetine (PAXIL) 40 MG tabletIndication s:Anxiety TAKE 1 TABLET BY MOUTH ONCE DAILY 30 tablet 1 2024 Active Insulin Pen Needle (BD AUTOSHIELD DUO) 30G X 5 MM MiscIndications: Type 2 diabetes 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, with long-term current use of insulin ([facility]) USE WITH INSULIN 100 each 2 2024 Active traMADol (ULTRAM) 50 MG tabletIndication s:Chronic Pain Indications: Chronic Pain TAKE 1 TABLET BY MOUTH EVERY 6 HOURS NEEDED FOR ACUTE PAIN 30 tablet 2024 Active ALPRAZolam (XANAX) 0.5 MG tabletIndication s:Generalized anxiety disorder with panic attacks TAKE 1 TABLET BY MOUTH THREE TIMES DAILY TAKE 1 1/2 TABLETS BY MOUTH AT BEDTIME 135 tablet 2024 Active insulin lispro, 1 Unit Dial, (HUMALOG KWIKPEN) 100 UNIT/ML injection (PEN)Indications :Type 2 diabetes 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, with long-term current use of insulin ([facility]) INJECT SQ PER SS THREE TIMES DAILY W/MEALS: 70-200=0U; 201-250=4U; 251-300=5U; 301-350=6U; 351-400=8U; >400 CALL MD 15 mL 2024 Active Easy Touch Lancets 30G MiscIndications: Type 2 diabetes 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, with long-term current use of insulin ([facility]) DIABETIC TESTING SUPPLY: USE THREE TIMES DAILY 100 each 3 2024 Active methocarbamol (ROBAXIN) 750 MG TabIndications:M uscle spasms of both lower extremities TAKE 1 TABLET BY MOUTH THREE TIMES DAILY NEEDED FOR MUSCLE SPASM 60 tablet 2024 Active insulin glargine (LANTUS SOLOSTAR) 100 UNIT/ML injection (PEN)Indications :Type 2 diabetes 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, with long-term current use of insulin ([facility]) INJECT 50 UNITS SUBCUTANEOUSLY AT BEDTIME 15 mL 3 2024 Active methocarbamol (ROBAXIN) 750 MG TabIndications:M uscle spasms of both lower extremities TAKE 1 TABLET BY MOUTH THREE TIMES DAILY NEEDED FOR MUSCLE SPASM 60 tablet 10/27 Discontinued pantoprazole EC (PROTONIX) 40 MG tabletIndication s:GERD (gastroesophagea l reflux disease) TAKE 1 TABLET BY MOUTH ONCE DAILY 30 tablet 10/07 Discontinued JANUVIA 100 MG tabletIndication s:Type 2 diabetes 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, with long-term current use of insulin ([facility]) TAKE 1 TABLET BY MOUTH ONCE DAILY 30 tablet 10/07 Discontinued furosemide (LASIX) 20 MG tabletIndication s:Essential hypertension TAKE 1 TABLET BY MOUTH ONCE DAILY 30 tablet 10/07 Discontinued carvedilol (COREG) 25 MG tabletIndication s:Essential hypertension TAKE 1 TABLET BY MOUTH TWICE DAILY 60 tablet 10/07 Discontinued atorvastatin (LIPITOR) 20 MG tabletIndication s:Other hyperlipidemia TAKE 1 TABLET BY MOUTH ONCE DAILY 30 tablet 10/07 Discontinued multiple vitamin (TAB-A-WILLOW) TabIndications:V itamin D deficiency TAKE 1 TABLET BY MOUTH ONCE DAILY 30 tablet 10/07 Discontinued busPIRone (BUSPAR) 10 MG tabletIndication s:Anxiety TAKE 2 TABLETS BY MOUTH THREE TIMES DAILY 180 tablet 10/07 Discontinued montelukast (SINGULAIR) 10 MG tabletIndication s:Cough TAKE 1 TABLET BY MOUTH EVERY EVENING 30 tablet 10/07 Discontinued ASPIRIN LOW DOSE 81 MG tabletIndication s:Essential hypertension TAKE 1 TABLET BY MOUTH ONCE DAILY 30 tablet 10/07 Discontinued glipiZIDE (GLUCOTROL) 10 MG tabletIndication s:Type 2 diabetes 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, with long-term current use of insulin ([facility]) TAKE 1 TABLET BY MOUTH ONCE DAILY 30 tablet 10/07 Discontinued PARoxetine (PAXIL) 20 MG tabletIndication s:Anxiety TAKE 1 TABLET BY MOUTH DAILY WITH 40MG=60MG DOSE 30 tablet 10/07 Discontinued PARoxetine (PAXIL) 40 MG tabletIndication s:Anxiety TAKE 1 TABLET BY MOUTH ONCE DAILY 30 tablet 10/07 Discontinued insulin lispro, 1 Unit Dial, (HUMALOG KWIKPEN) 100 UNIT/ML injection (PEN)Indications :Type 2 diabetes 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, with long-term current use of insulin ([facility]) INJECT SQ PER SS THREE TIMES DAILY W/MEALS: 70-200=0U; 201-250=4U; 251-300=5U; 301-350=6U; 351-400=8U; >400 CALL MD 15 mL 10/27 Discontinued BD AUTOSHIELD DUO 30G X 5 MM MiscIndications: Type 2 diabetes 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, with long-term current use of insulin ([facility]) USE WITH INSULIN 100 each 10/09 Discontinued traMADol (ULTRAM) 50 MG tabletIndication s:Chronic Pain Indications: Chronic Pain TAKE 1 TABLET BY MOUTH EVERY 6 HOURS NEEDED FOR ACUTE PAIN 30 tablet 10/14 Discontinued ALPRAZolam (XANAX) 0.5 MG tabletIndication s:Generalized anxiety disorder with panic attacks TAKE 1 TABLET BY MOUTH THREE TIMES DAILY TAKE 1 1/2 TABLETS BY MOUTH AT BEDTIME 135 tablet 10/21 Discontinued insulin glargine (LANTUS SOLOSTAR) 100 UNIT/ML injection (PEN)Indications :Type 2 diabetes 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, with long-term current use of insulin ([facility]) INJECT 50 UNITS SUBCUTANEOUSLY AT BEDTIME 15 mL 11/02 Discontinued Active Problems Problem Noted Date Diagnosed Date Post-menopausal 08/03/2024 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 with discogenic back pain and lower extremity pain 05/06/2024 Generalized anxiety disorder with panic attacks 10/15/2023 Hemorrhoids, unspecified hemorrhoid type 022 Chronic obstructive pulmonar y disease with frequent exacerbations ([facility]) 05/17/2022 Coronary artery disease invo lving [place] coronary artery 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 There may be a component of small bowel bacterial overgrowth. IBS (irritable bowel syndrome) 07/04/2018 Stage 3 chronic kidney disease 05/20/2018 Class 1 obesity with body ma ss index (BMI) of 32.0 to 32.9 in adult 04/27/2018 Acute kidney injury superimposed on chronic kidn ey disease 04/23/2018 HTN (hypertension) 04/23/2018 Type 2 diabetes mellitus wit h stage 2 chronic kidney disease, with long-term current use of insulin ([facility]) 04/23/2018 CAD (coronary artery disease) 04/23/2018 Dementia 04/23/2018 Altered mental status 04/23/2018 Status post kyphoplasty 03/25/2018 Closed T10 spinal fracture ([facility]) TIA (transient ischemic attack) 03/04/2018 Chest mass 02/27/2018 Compression fracture of thoracic vertebra ([facility]) 02/20/2018 Confusion 02/13/2018 Thoracic spine fracture ([facility]) 2017 Cough 01/28/2018 Serum creatinine raised 10/29/2017 Hiatal hernia 12/18/2016 Overview (07/04/2018): Overview: Gastroesophageal reflux disease with large hiatal hernia with evidence of partial organoaxial volvulus. Fracture of lumbar vertebra ([facility]) Frequent falls 09/13/2016 Anxiety 05/17/2015 CHF (congestive heart failure) ([facility]) 05/17/2015 Hyperlipidemia 05/17/2015 Resolved Problems Problem Noted Date Diagnosed Date Resolved Date Leukocytosis, unspecified type 05/06/2024 08/03/2024 Chronic right shoulder pain 05/06/2024 08/03/2024 RLQ abdominal pain 03/27/2023 Overview (03/27/2023): Added automatically from request for surgery [id number] Urinary frequency 01/09/2023 05/05/2024 Chronic right flank pain 01/09/2023 Chronic bilateral low back p ain with bilateral sciatica 01/09/2023 08/03/2024 Precordial pain 05/18/2022 05/05/2024 Abdominal pressure 05/17/2022 Right sided sciatica 05/17/2022 09/24/2 024 Bright red blood per rectum 05/17/2022 05/05/2024 Gastroesophageal reflux dise ase, unspecified whether esophagitis present 10/28/2020 05/05/2024 Colon cancer screening 10/28/202010/31 Rash and nonspecific skin eruption 04/19/2020 08/03/2024 Difficulty urinating 08/25/2019 024 Blood in stool 08/25/2019 05/05/2024 Wheezing 08/25/2019 05/05/2024 Encounter for screening mamm ogram for breast cancer 02/25/2019 04/22/2020 Leg cramping 02/25/2019 08/03/2024 Muscle spasms of both lower extremities 11/28/2018 08/03/2024 Pneumonia 05/30/2018 05/05/2024 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 ([facility]) 05/20/2018 05/05/2024 Nail overgrowth 05/05/2018 08/03/2024 UTI (urinary tract infection) 04/23/2018 05/05/2024 Acute renal failure 04/22/2018 05/05/20 24 Dysuria 04/22/2018 12/23/2018 Hallucinations 04/22/2018 05/05/2024 Shortness of breath 02/13/2018 05/05/20 History of UTI 10/29/2017 05/05/2024 Chronic obstructive pulmonar y disease ([facility]) 05/17/2015 08/03/2024 Encounters Date Type Department Care Team Description 10/05/2024 Scan [facility] Scanned, [facility] 09/24/2024 Telephone [facility] [address] [phone] Karen Reyna FNP Refill Request 09/10/2024 Scan [facility] INFO SRVCS Scanned, [facility] 08/27/2024 Telephone [facility] Family & Internal [address] [phone] Karen Reyna FNP Error 08/20/2024 Scan [facility] INFO SRVCS Scanned, [facility] 08/13/2024 Scan [facility] INFO SRVCS Scanned, [facility] from Last 3 Months Immunizations Name Administration Dates Next Due Fluad influenza vaccine, Levy drivalent (aIIV4), Inactivated, adjuvanted, preservative free, 0.5 mL,IM use 05/31/2021 Fluzone Adult - >Age 3 (Pref illed Syringe) 05/22/2018 Fluzone High Dose - >Age 65 (Prefilled Syringe) 05/16/2022,04/14/2020,05/06/2019,2016 Influenza (Generic) 05/28/2024,,05/22/2018,2011 Influenza Adult (Generic) 06/06/2023,12/2021,05/06/2019,2016 PFIZER COVID-19 (BILLINGS CAP), MRNA, LNP-S, PF, 30 MCG/0.3 ML DAVION-SUCROSE, IM 01/26/2022 PFIZER COVID-19 (ORIGINAL FORMULATION, PURPLE CAP) mRNA, LNP-S, PF, 30 MCG/0.3 ML DOSE 10/12/2020,09/26/2020 Pneumococcal (Pneumovax 23) 08/18/2019 Pneumococcal (Prevnar 13) 02/27/2018 Pneumococcal (Prevnar 7) 01/11/2020 Family History Medical History Relation Comments GI Maternal Grandmother GI Mother Relation Status Comments Maternal Grandmother Mother Social History Tobacco Use Types Packs/Day Years Used Date Smoking Tobacco: Never Smokeless Tobacco: Never Tobacco Cessation:Counseling Given: No Alcohol Use Standard Drinks/Week Comments No 0 (1 standard drink = 0.6 oz pur e alcohol) PHQ-2 Answer Date Recorded Patient Health Questionnaire-2 Score 1 10/15/2023 Comments No Sex and Gender Information Value Date Recorded Sex Assigned at Not on file Legal Sex Female 6:46 PM CDT Gender Identity Not on file Sexual Orientation Not on file Last Filed Vital Signs Vital Sign Reading Time Taken Comments Blood Pressure 116/60 07/28/2024 11:20 AM THRESHING OPERATOR Pulse 74 07/28/2024 11:20 AM THRESHING OPERATOR Temperature 36.8 C (98.3 F) 07/28/2024 11:20 AM THRESHING OPERATOR Respiratory Rate 14 07/28/2024 11:2 0 AM THRESHING OPERATOR Oxygen Saturation 97% 07/28/2024 11: 20 AM THRESHING OPERATOR Inhaled Oxygen Concentration - - Weight 82.5 kg (181 lb 12.8 oz) 024 11:20 AM THRESHING OPERATOR Height 160 cm (5' 3 ) 07/28/2024 11:20 AM THRESHING OPERATOR Body Mass Index 32.2 07/28/2024 11:20 AM THRESHING OPERATOR Plan of Treatment Health Maintenance Due Date Last Done Comments Kidney Health Evaluation 1945 Hepatitis C 1963 Annual Medicare Wellness Visit 10/14/2011 Dexa Scan (General) 10/14/2011 Diabetes: Retinopathy Eye Exam 09/08/2021 09/08/2019, 01/07/2018 PHQ-2 (Physician [place]) 08/12/2024 10/15/2023 ASCVD LDL 10/14/2024 10/15/2023, 08/2020, 05/11/2020, Additional history exists Lipid Panel 10/14/2024 10/15/2023, 0 08/2020, 05/11/2020 Hemoglobin A1C 11/02/2024 05/05/2024, 0 12/2023, 01/08/2023, Additional history exists COVID-19 Vaccine ( season) 2025 01/26/2022, 10/12/2020, 09/26/2020 Postponed from 04/12/2024 (Patient Refused) DTaP, Tdap and Td Vaccines (1 - Tdap) 07/28/2025 Postponed from 1965 (Going to Outside Clinic) RSV Immunization or 60+ Years (1 - 1-dose 75+ series) 07/28/2025 Postponed from 2021 (Going to Outside Clinic) Zoster Vaccines (1 of 2) 07/28/2025 Pos tponed from 1996 (Going to Outside Clinic) Pneumococcal Vaccine: 65+ Years Completed 01/11/2020, 08/18/2019, 02/27/2018 Colorectal Cancer Screening Colonoscopy (10 Years) Discontinued 07/25/2023, 07/25/2023 Influenza Adult Completed 05/28/2024, 05/13, 05/16/2022, Additional history exists Meningococcal B Vaccine Aged Out No l onger eligible based on patient's age to complete this topic Meningococcal Vaccine Aged Out No keyla didi eligible based on patient's age to complete this topic RSV Immunizations Under 20 Months Aged Out No longer eligible based on patient's age to complete this topic Goals Goal Patient Goal Type Associated Problems Recent Progress Patient-Stated? Author Consistently take medications as Prescribed Lifestyle Not on track( 10:46 AM CDT) No Edie Groves, RN Establish Plan for Symptom Monitoring Lifestyle On track( 10:46 AM CDT) No Edie Groves, maintenance mechanic telephone Procedure Name Priority Date/Time Associated Diagnosis Comments HEMOGLOBIN, GLYCOSYLATED Routine 05/05/2024 Type 2 diabetes 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, with long-term current use of insulin LIPID PANEL Routine 10/15/2023 9:55 AM THRESHING OPERATOR Primary hypertension Other hyperlipidemia COLONOSCOPY Routine 07/25/2023 7:17 AM THRESHING OPERATOR DILATED EYE EXAM (SCAN) Routine 09/08/2019 from Last 3 Months or Most Recently Relevant to Health Maintenance Results * (ABNORMAL) A1C (BACK OFFICE) (05/05/2024) HGB A1C 7.4(A) % [facility] 05/05/2024 us Karen Reyna [facility] Final Result [facility] [address] [place] [address], * (ABNORMAL) LIPID PANEL (10/15/2023 9:55 AM THRESHING OPERATOR) CHOLESTEROL 170 <200 MG/DL 10/15/2023 3:36 PM THRESHING OPERATOR [facility] [place] TRIGLYCERIDES 143 <150 MG/DL 10/15/2023 3:36 PM THRESHING OPERATOR [facility] [place] HDL 49 >40 MG/DL 10/15/2023 3:36 PM THRESHING OPERATOR [facility] [place] LDL-C 92 <100 MG/DL 10/15/2023 3:36 PM THRESHING OPERATOR [facility] [place] VLDL CALCULATION 29(H) 5 - 28 MG/DL 10/15/2023 3:[address] [facility] [place] CHOL/HDL RATIO 3.5 0.0 - 4.0 10/15/2023 3:36 PM THRESHING OPERATOR [facility] [place] LDL/HDL 1.9 0.41 - 2.13 10/15/2023 3:36 PM THRESHING OPERATOR [facility] [place] NON HDL CHOLESTEROL 121 <140 MG/DL 10/15/2023 3:36 PM THRESHING OPERATOR [facility], [place] 10/15/2023 9:55 AM THRESHING OPERATOR us Karen Axel [facility] Final Result [facility] [address] [facility] [place] [address], * DIABETIC RETINOPATHY EXAM (09/08/2019) us Documents Scanned SCANNING Final Result [facility] from Last 3 Months or Most Recently Relevant to Health Maintenance Insurance MEDICAID [facility] Care Teams Basic Sciences Professor Relationship Specialty Start Date End Date Karen Reyna FNP [address] [place] [phone] PCP - General Nurse Practitioner Family 07/22/18
--- OUTSIDE RECORDS SUMMARY | 2024-11-03 14:07 | XMS_ITS | Encounter Summary ---
Author Organization [facility] Address [facility] [place] [address] Care Team Providers Care Software Sales Representative Name Role Phone Christian Cabezas MD Primary Care Provider Karen Chisholm Primary Care Provider [phone] Kenyatta Salamanca RN Unavailable [phone] Adam Ramirez MD Unavailable [phone] Edie Groves RN Unavailable [phone] Jenna Joyce MD Unavailable Encounter Details Date Type Department Care Team (Latest Contact Info) Description 04/07/2018 Abstract [facility] Group Jt Dos Santos MD Social [...] on filedocumented in this encounter Care Teams Software Sales Representative Relationship Specialty Start Date End Date Christian Cabezas MD PCP - General 10/22/16 07/21/18 Karen Reyna FNP [address] [place] [address] PCP - General Nurse Practitioner Family 07/22/18 Adam Ramirez MD [address] [place] [address] PCP - Hospice Attending 07/22/18 07/14/19 Kenyatta Salamanca RN [address] [place] [address] [employer] [employer] (Ambulatory) REGISTERED NURSE 12/24/18 01/12/19 Edie Groves, RN [address] [address] Registered Nurse CARE MANAGEMENT 04/25/22 09/03/22 Jenna Joyce MD [address] [place] [address] Consulting Physician GENERAL SURGERY 07/25/23 07/25/24 documented as of this encounter
--- OUTSIDE RECORDS SUMMARY | 2024-11-03 14:07 | XMS_ITS | Encounter Summary ---
Author Organization [facility] Address [facility] [place] [address] Care Team Providers Care Jukebox Operator Name Role Phone Christian Cabezas MD Primary Care Provider Karen Chisholm Primary Care Provider [phone] Kenyatta Salamanca RN Unavailable [phone] Adam Ramirez MD Unavailable [phone] Edie Groves RN Unavailable [phone] Jenna Joyce MD Unavailable Encounter Details Date Type Department Care Team (Latest Contact Info) Description 04/21/2018 [facility] Jt Dos Santos [...] on filedocumented in this encounter Care Teams Jukebox Operator Relationship Specialty Start Date End Date Christian Cabezas MD PCP - General 10/22/16 07/21/18 Karen Reyna FNP [address] [place] [address] PCP - General Nurse Practitioner Family 07/22/18 Adam Ramirez MD [address] [place] [address] PCP - Hospice Attending 07/22/18 07/14/19 Kenyatta Salamanca RN [address] [place] [address] Station Master (Ambulatory) REGISTERED NURSE 12/24/18 01/12/19 Edie Groves, RN [address] [address] Registered Nurse CARE MANAGEMENT 04/25/22 09/03/22 Jenna Joyce MD [address] [place] [address] Consulting Physician GENERAL SURGERY 07/25/23 07/25/24 documented as of this encounter
--- OUTSIDE RECORDS SUMMARY | 2024-11-03 14:07 | XMS_ITS | Encounter Summary ---
Author Organization [facility] Address [facility] [place] [address] Care Team Providers Care Biochemist Name Role Phone Christian Cabezas MD Primary Care Provider Karen Chisholm Primary Care Provider [phone] Kenyatta Salamanca RN Unavailable [phone] Adam Ramirez MD Unavailable Edie Groves RN Unavailable [phone] Jenna Joyce MD Unavailable Encounter Details Date Type Department Care Team (Latest Contact Info) Description 03/21/2018 Abstract [facility] Medical Group Jt Dos Santos MD [...] on filedocumented in this encounter Care Teams Biochemist Relationship Specialty Start Date End Date Christian Cabezas MD PCP - General 10/22/16 07/21/18 Karen Reyna FNP [address] [place] [address] PCP - General Nurse Practitioner Family 07/22/18 Adam Ramirez MD [address] [place] [address] PCP - Hospice Attending 07/22/18 07/14/19 Kenyatta Salamanca RN [address] [place] [address] Grant Writer (Ambulatory) REGISTERED NURSE 12/24/18 01/12/19 Edie Groves, RN [address] [address] Registered Nurse CARE MANAGEMENT 04/25/22 09/03/22 Jenna Joyce MD [address] [place] [address] Consulting Physician GENERAL SURGERY 07/25/23 07/25/24 documented as of this encounter
--- OUTSIDE RECORDS SUMMARY | 2024-11-03 14:07 | XMS_ITS | Encounter Summary ---
Author Organization [facility] Address [address] [place] [address] Care Team Providers Care Space Officer Name Role Phone Karen Reyna Primary Care Provider [phone] Jenna Joyce MD Unavailable Encounter Details Date Type Department Care Team (Late st Contact Info) Description 02/06/2023 MyChart Message Enc [facility] - [facility] [address] [place], [place] [id number] [facility] Provider Air Quality Message Social History Tobacco Use Types Packs/Day Years Used Date Smoking Tobacco: Never Smokeless Tobacco: Never Alcohol Use Standard Drinks/Week Comments No 0 (1 standard drink = 0.6 oz pur e alcohol) PHQ-2 Answer Date Recorded Patient Health Questionnaire-2 Score 4 01/08/2023 Comments No Sex and Gender Information Value Date Recorded Sex Assigned at Not on file Legal Sex Female 6:46 PM CDT Gender Identity Not on file Sexual Orientation Not on file COVID-19 Exposure Response Date Recorded In the last 10 days, have yo u been in contact with someone who was confirmed or suspected to have Coronavirus/COVID-19? No / Unsure 01/08/2023 3:36 PM CDT documented as of this encounter Plan of [...] Assessment Noted Time PHQ-9 Depression Total Score: 21 023 4:21 PM CDT documented as of this encounter Care Teams Space Officer Relationship Specialty Start Date End Date Karen Reyna FNP [address] [place] [address] PCP - General Nurse Practitioner Family 07/22/18 Jenna Joyce MD [address] [place] [address] Consulting Physician GENERAL SURGERY 07/25/23 07/25/24 documented as of this encounter
--- OUTSIDE RECORDS SUMMARY | 2024-11-03 14:07 | XMS_ITS | Encounter Summary ---
Author Organization [facility] Address [facility] [place] [address] Care Team Providers Care Counter Tacker Name Role Phone Karen Reyna Primary Care Provider [phone] Jenna Joyce MD Unavailable Encounter Details Date Type Department Care Team (Late st Contact Info) Description 04/08/2024 [employer] Message Enc [facility] Medical Group Multispecialty Care - [address], [address] [place] [address] Kris, [facility] Provider MRI results Social History Tobacco Use Types Packs/Day Years [...] Total Score: 4 10/15/19 24 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
--- OUTSIDE RECORDS SUMMARY | 2024-11-03 14:07 | XMS_ITS | Clinical Summary ---
Author Organization [facility] Address [address] [place] [address] Phone Care Team Providers Care Captain Waiter Name Role Phone Karen Reyna JEFFERY Primary Care Provider [phone] Allergies Active Allergy Reactions Criticality Noted Date Comments Meperidine Diarrhea,nausea,Vomiting 10/10/2020 Medications Medication Sig Dispensed Refills Start Date End Date Status nitroglycerin (NITROSTAT) 0.4 MG SL tablet 0 01/27/2018 Active oxyCODONE-acetaminophe n (ROXICET,PERCOCET) 5-325 MG/5ML solution take 1-2 tab up to 4 times daily 0 01/27/2018 Active PARoxetine (PAXIL) 40 MG tablet 1 tab daily 0 01/27/2018 Active insulin glargine (LANTUS) 100 UNIT/ML injection inject 40 units daily 0 01/27/2018 Active fluticasone-vilanterol (BREO ELLIPTA) 200-25 MCG/INH inhaler 1 puff daily 0 01/27/2018 Active hydrALAZINE (APRESOLINE) 25 MG tablet take 1 tab 3 times daily 0 01/27/2018 Active pantoprazole (PROTONIX) 40 MG EC tablet 1 tab daily 0 01/27/2018 Active acetaminophen (TYLENOL) 325 MG tablet 1-2 tabs every 4 hours PRN 0 01/27/2018 Active carvedilol (COREG) 25 MG tablet 1 tab 2 times daily 0 01/27/2018 Active furosemide (LASIX) 20 MG tablet 1 tab daily 0 01/27/2018 Active montelukast (SINGULAIR) 10 MG tablet 1 tab once daily 0 01/27/2018 Active atorvastatin (LIPITOR) 20 MG tablet 1 tab daily 0 01/27/2018 Active lisinopril (PRINIVIL,ZESTRIL) 20 MG tablet 1 tab 2 times daily 0 01/27/2018 Active albuterol HFA (VENTOLIN HFA) 108 (90 Base) MCG/ACT inhaler 2 puffs every 6 hours PRN 0 01/27/2018 Active albuterol HFA (PROVENTIL HFA) 108 (90 Base) MCG/ACT inhaler Inhale 2 puffs every 30 minutes as needed Active ALPRAZolam (XANAX) 1 MG tablet 09/20/2020 Active Aspirin Buf,XoKazq-RpNpns-HsH, 81 MG tablet daily. Active atorvastatin (LIPITOR) 20 MG tablet 09/17/2020 Active Symbicort 80-4.5 MCG/ACT inhaler 10/03/2020 Active carvedilol (COREG) 25 MG tablet 09/17/2020 Active donepezil (ARICEPT) 5 MG tablet 09/17/2020 Active furosemide (LASIX) 20 MG tablet 09/17/2020 Active glipiZIDE (GLUCOTROL XL) 10 MG 24 hr tablet 09/17/2020 Ac tive Accu-Chek Dariela Plus test strip 07/28/2020 Active hydrALAZINE (APRESOLINE) 25 MG tablet bid 09/17/2020 Active Lantus SoloStar 100 UNIT/ML injection 09/08/2020 Active NovoFine Autocover 30G X 8 MM misc 07/18/2020 Active montelukast (SINGULAIR) 10 MG tablet 09/17/2020 Active pantoprazole (PROTONIX) 40 MG EC tablet 09/17/2020 Active PARoxetine (PAXIL) 40 MG tablet 09/17/2020 Active PARoxetine (PAXIL) 20 MG tablet 09/17/2020 Active Januvia 100 MG tablet 09/17/2020 Act gianna traMADol (ULTRAM) 50 MG tablet 08/11/2020 Active Active Problems Problem Noted Date Diagnosed Date Gastroesophageal reflux disease 10/10/2020 Overview (10/10/2020): Gastroesophageal reflux disease with large hiatal hernia with evidence of partial organoaxial volvulus. Hiatal hernia 10/10/2020 Irritable bowel syndrome 10/10/2020 Polyp of colon 10/10/2020 Overview (10/10/2020): Colon polyps with a history of diverticulosis coli with urgency and diarrhea compatible with underlying irritable bowel syndrome. There may be a component of small bowel bacterial overgrowth. Stage 3b chronic kidney disease 10/10/2020 Chronic kidney disease, stage 3 (moderate) 05/20 Type 2 diabetes mellitus with diabetic nephropat hy 05/20/2018 Atherosclerotic heart diseas e of [place] coronary artery without angina pectoris 05/20/2018 Closed fracture thoracic vertebra 03/07/2018 Essential (primary) hypertension 01/27/2018 Hyperlipidemia 01/27/2018 Hypertension 12/16/2013 Diabetes mellitus 12/16/2013 Immunizations Name Administration Dates Next Due Influenza Split High Dose Preservative Free IM 1 10/01/2016 Influenza TIV (IM) 04/12/2020 Pneumococcal Conjugate 01/11/2020 Family History Medical History Relation Comments Diabetes mellitus Relative 1 Heart disease Relative 2 Hypertensive disorder Relative 3 Malignant neoplastic disease Relative 4 Kidney disease Neg Hx Relation Status Comments Relative 1 Relative 2 Relative 3 Relative 4 Social History Tobacco Use Types Packs/Day Years Used Date Smoking Tobacco: Never Smokeless Tobacco: Never Alcohol Use Standard Drinks/Week Comments Not Currently 0 (1 standard drink = 0.6 oz pur e alcohol) Sex and Gender Information Value Date Recorded Sex Assigned at Not on file Gender Identity Not on file Sexual Orientation Not on file Last Filed Vital Signs Vital Sign Reading Time Taken Comments Blood Pressure 114/70 03/01/2021 10:28 AM CDT Pulse 72 03/01/2021 10:28 AM CDT Temperature 36.6 C (97.9 F) 03/01/2021 10:28 AM CDT Respiratory Rate - - Oxygen Saturation - - Inhaled Oxygen Concentration - - Weight 86.2 kg (190 lb) 03/01/2021 10:28 AM CDT Height 160 cm (5' 3 ) 03/01/2021 10:28 AM CDT Body Mass Index 33.66 03/01/2021 10:28 AM CDT Plan of Treatment Health Maintenance Due Date Last Done Comments Pneumococcal PPSV23/PCV13 65 + Years / Low and Medium Risk (1 of 4 - PCV) 10/14/2011 Influenza Vaccine (#1) 2024 04/12/2020 Care Teams Captain Waiter Relationship Specialty Start Date End Date Karen Reyna FNP [address] [place] [address] PCP - General Family Medicine 07/04/21
--- OUTSIDE RECORDS SUMMARY | 2024-11-03 14:08 | XMS_ITS | Clinical Summary ---
Author Organization [facility] Address [address] [facility] [place] [address] Care Team Providers Care Raw Stock Machine Loader Name Role Phone Jason Botello MD Primary Care Provider [phone] Source Comments [facility],non-owned Affiliates and Associated Physician Practices is amultiple site organization consisting of ambulatory clinics and hospital sitesin [place], [place], [place] and [place]. This disclosure is being madepursuant to the Care Everywhere program and may not contain all information available regarding this patient. Last updated 18.[facility] Allergies No known active allergies Medications * Be aware that medications may not be up to date on this document. Alwaysverify current medications with the patient. Medication Sig Dispensed Refills Start Date End Date Status ALPRAZolam (XANAX) 1 MG tabletIndications: Anxiety Take 1 mg by mouth 3 times daily Reasons: Feeling Anxious Active atorvastatin (LIPITOR) 20 MG tabletIndications: Hyperlipidemia Take 20 mg by mouth at bedtime Reasons: High Amount of Fats in the Blood Active carvedilol (COREG) 25 MG tabletIndications: Heart Failure,Primary Hypertension (Inactive),cardiac stent Take 25 mg by mouth 2 times daily with morning and evening meal Reasons: Heart Failure, High Blood Pressure of Unknown Cause, cardiac stent Active SITagliptin (JANUVIA) 100 MG tabletIndications: Type 2 Diabetes Mellitus Take 100 mg by mouth once daily Reasons: Type 2 Diabetes Active insulin glargine (LANTUS) vialIndications:Ty pe 2 Diabetes Mellitus Inject 40 Units subcutaneously at bedtime Reasons: Type 2 Diabetes Active montelukast (SINGULAIR) 10 MG tabletIndications: Asthma Take 10 mg by mouth at bedtime Reasons: Asthma Active albuterol HFA (PROVENTIL;VENTOLI N;PROAIR) 108 (90 BASE) MCG/ACT inhalerIndications :Asthma Inhale 2 puffs by mouth every 4 hours as needed for Shortness of Breath Reasons: Asthma Active HYDROcodone-acetam inophen (NORCO) 5-325 MG tablet Take 2 tablets by mouth every 6 hours as needed 32 tablet 03/11/2018 Active methocarbamol (ROBAXIN) 500 MG tablet Take 1 tablet by mouth every 6 hours as needed for Muscle Spasms 30 tablet 03/11/2018 Active glipiZIDE CR 24hr (GLUCOTROL XL) 1.25 MG Take 2.5 mg by mouth daily with breakfast Active aspirin (ASPIRIN) 81 MG tablet daily. Active Active Problems Problem Noted Date Diagnosed Date Closed T10 spinal fracture 03/07/2018 Family History Medical History Relation Name Comments Alcohol abuse Father CAD (Coronary Artery Disease) Maternal Grandfather Renal Disease Mother Relation Name Status Comments Father Maternal Grandfather Mother Social History Tobacco Use Types Packs/Day [...] Sign Reading Time Taken Comments Blood Pressure 120/71 03/31/2018 3:55 PM CDT Pulse 81 03/31/2018 3:55 PM CDT Temperature 36.6 C (97.8 F) 03/12/2018 8:21 AM CDT Respiratory Rate 14 03/31/2018 3:55 PM CDT Oxygen Saturation 94% 03/12/2018 8:21 AM CDT Inhaled Oxygen Concentration - - Weight 82.1 kg (181 lb) 03/31/2018 3:55 PM CDT Height 160 cm (5' 3 ) 03/31/2018 3:55 PM CDT Body Mass Index 32.06 03/31/2018 3:55 PM CDT Plan of Treatment Health Maintenance Due Date Last Done Comments BONE DENSITY TESTING 1945 HEPATITIS C SCREENING 10/08/1964 DTAP/TDAP/TD VACCINES (1 - Tdap) 1965 PNEUMOCOCCAL VACCINE 50+ (1 of 1 - PCV) 1996 ZOSTER VACCINE (1 of 2) 1996 Respiratory Syncytial Virus (RSV) Vaccine Pt: or over 60 yrs (1 - 1-dose 75+ series) 2021 COVID-19 VACCINE (2023-2 5 season) 2024 INFLUENZA VACCINE (#1) 2024 DEPRESSION SCREENING 08/12/2024 HEPATITIS B VACCINE Aged Out No longe r eligible based on patient's age to complete this topic HIB VACCINE Aged Out No longer eligi ble based on patient's age to complete this topic HPV VACCINE Aged Out No longer eligi ble based on patient's age to complete this topic MENINGOCOCCAL (Group B) VACC INE SHARED DECISION-MAKING Aged Out No longer eligibl e based on patient's age to complete this topic MENINGOCOCCAL GROUPS A/C/Y/W VACCINE Aged Out No longer eligible b ased on patient's age to complete this topic Advance Directives Documents on File Type Date Recorded Patient [employer] Expl anation Adv Directive/Living Will/POA 03/14/2018 9:06 AM * Full Code (Latest Code Status on File) Date Activated Date Inactivated Comments 03/07/2018 6:12 PM 03/12/2018 12:24 PM Care Teams Raw Stock Machine Loader Relationship Specialty [place] [address] [place] [phone] PCP - General 12/31/18
[2024-11-03 14:32] VITALS: BP 118/72; BP 126/57; PULSE 76; PULSE 82
[2024-11-03 14:34] VITALS: BP 129/64; PULSE 85
[2024-11-03 15:00] VITALS: BP 125/61; PULSE 74; RESP 15; O2SAT 98
[2024-11-03] MEDS: CIPROFLOXACIN 500 MG TAB PO (15:00)
[2024-11-03] MEDS: metroNIDAZOLE 500 MG TABLET PO (15:00)
--- OUTSIDE RECORDS SUMMARY | 2024-11-03 15:14 | XMS_ITS | Encounter Summary ---
Author Organization [facility] Address [facility] [place] [address] Care Team Providers Care Imaging Aide Name Role Phone Karen Reyna Primary Care Provider [phone] Jenna Joyce MD Unavailable Encounter Details Date Type Department Care Team (Late st Contact Info) Description 03/09/2024 MainOne Message Enc 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
--- OUTSIDE RECORDS SUMMARY | 2024-11-03 15:14 | XMS_ITS | Clinical Summary ---
Author Organization [facility] Address [address] [place] [address] Care Team Providers Care Dry Wall Finisher Name Role Phone Karen Reyna JEFFERY Primary Care Provider [phone] Allergies Active Allergy Reactions Criticality Noted Date [...] disease, with long-term current use of insulin ([facility]) 1 Units by Does not apply route 3 (three) times daily. 300 Container 2018 Active Additional Information Patient taking differently:1 Units Does not apply 3 times daily,Indications: diabetes, Reported on 07/28/2024 Alcohol Swabs (ALCOHOL PREP) 70 % PadsIndications: Type 2 diabetes 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, with long-term current use of insulin ([facility]) Use as directed three times daily 300 each 2018 Active Additional Information Patient taking differently:, Use as directed three times daily,Indications: Diabetes Mellitus, Reported on 07/28/2024 magnesium oxide (MAG-OX) 400 (240 Mg) MG tabletIndication s:08/23/22 per [facility] instructions Take 1 tablet (400 mg total) by mouth daily. Indications: 08/23/22 per [facility] instructions 2021 Active gabapentin (NEURONTIN) 100 MG capsuleIndicatio ns:Sciatica Take 1 capsule (100 mg total) by mouth every evening. 90 capsule 1 2021 Active hydrocortisone (CORTIZONE) 1 % creamIndications :08/23/22 per [facility] instructions Apply topically 2 (two) times daily as needed (itching). Indications: 08/23/22 per [facility] instructions Active Multiple Vitamins-Iron (MULTI-VITAMIN/I BASHIR) TabIndications:s uppliment Indications: suppliment Take one tablet daily 90 tablet 3 2022 Active Blood Glucose Monitoring Suppl (ONETOUCH VERIO) w/Device KitIndications:T ype 2 diabetes 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, with long-term current use of insulin ([facility]) Use to check blood glucose TID for diabetes 1 kit 2023 Active Glucose Blood (ACCU-CHEK GUIDE) test stripIndications :Type 2 diabetes 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, with long-term current use of insulin ([facility]) DIABETIC TESTING SUPPLY: USE THREE TIMES DAILY [...] disease, with long-term current use of insulin ([facility]) Use with insulin 4 times daily 400 each 2023 Active nitroglycerin (NITROSTAT) 0.4 MG SL tabletIndication s:Angina Pectoris Place 1 tablet (0.4 mg total) under the tongue every 5 (five) minutes as needed for Chest Pain. Indications: Angina Pectoris May repeat a total of 3 times 90 tablet 1 2023 Active ondansetron (ZOFRAN-ODT) 4 MG disintegrating tabletIndication s:04/26/22 per [facility] instructions Take 1 tablet (4 mg total) by mouth every 8 (eight) hours as needed for Nausea. Indications: 04/26/22 per [facility] instructions 20 tablet 2023 Active OXYGENIndication s:Unilateral emphysema ([facility]) 2 L/min by Nasal route nightly at bedtime. 1 Device 11 2023 Active phenylephrine-co coa butter (PREPARATION H) 0.25-88.44 % suppositoryIndic ations:Hemorrhoi ds, unspecified hemorrhoid type Place 1 suppository rectally 4 (four) times daily as needed for Hemorrhoids. 30 suppository 2 2023 Active Skin Protectants, Misc. (MINERIN) CreamIndications :08/23/22 per [facility] instructions Apply topically daily. Indications: 08/23/22 per [facility] instructions 113 g 1 2023 Active sodium chloride (OCEAN) 0.65 % SolutionIndicati ons:08/23/22 per [facility] instructions 1 spray by Each Nostril route every 6 (six) hours as needed for Dryness. Indications: 08/23/22 per [facility] instructions 30 mL 2 2023 Active TRUEPLUS GLUCOSE ON THE GO 4 g chewable tabletIndication s:08/23/22 per [facility] instructions Chew 1 tablet (4 g total) by mouth as needed for Low blood sugar. Indications: 08/23/22 per [facility] instructions 1 q 15min as needed until [...] MCG/ACT AEROSOL POWDER, BREATH ACTIVATEDIndicat ions:Unilateral emphysema ([facility] HHS/HCC) inhale 1 puff by mouth daily 60 each 6 2023 Active glipiZIDE XL (GLUCOTROL XL) 10 MG 24 hr tabletIndication s:GERD (gastroesophagea l reflux disease),Type 2 diabetes 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, with long-term current use of insulin ([facility] HHS/[facility]),General ized anxiety disorder with panic attacks,Other hyperlipidemia,A nxiety,Essential hypertension,Dem entia ([facility]),Allerg ic,Unilateral emphysema ([facility] HHS/HCC),Muscle spasms of both lower extremities,Naus ea,Chronic [...] 50 g 2 2023 Active Continuous Glucose Sample Selector (FREESTYLE MARYCARMEN 3 READER) DeviceIndication s:Type 2 diabetes 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, with long-term current use of insulin ([facility]) One reader to use for CGM 1 each 2023 Active Continuous Glucose Sensor (FREESTYLE MARYCARMEN 3 SENSOR) MiscIndications: Type 2 diabetes 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, with long-term current use of insulin ([facility]) Apply one sensor every 14 days 6 [...] disease, with long-term current use of insulin ([facility]) TAKE 1 TABLET BY MOUTH ONCE DAILY [...] disease, with long-term current use of insulin ([facility] HHS/HCC) TAKE 1 TABLET BY MOUTH ONCE [...] disease, with long-term current use of insulin ([facility] H[facility]) USE WITH INSULIN 100 each 2 2024 [...] disease, with long-term current use of insulin ([facility]) INJECT SQ PER SS THREE TIMES DAILY W/MEALS: 70-200=0U; 201-250=4U; 251-300=5U; 301-350=6U; 351-400=8U; >400 CALL MD 15 mL 2024 Active Easy Touch Lancets 30G MiscIndications: Type 2 diabetes 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, with long-term current use of insulin ([facility]) DIABETIC TESTING SUPPLY: USE THREE TIMES DAILY 100 each 3 2024 Active methocarbamol (ROBAXIN) 750 MG TabIndications:M uscle spasms of both lower extremities TAKE 1 TABLET BY MOUTH THREE TIMES DAILY NEEDED FOR MUSCLE SPASM 60 tablet 2024 Active insulin glargine (LANTUS SOLOSTAR) 100 UNIT/ML injection (PEN)Indications :Type 2 diabetes 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, with long-term current use of insulin ([facility]) INJECT 50 UNITS SUBCUTANEOUSLY AT BEDTIME 15 [...] disease, with long-term current use of insulin ([facility]) TAKE 1 TABLET BY MOUTH ONCE DAILY [...] disease, with long-term current use of insulin ([facility] HHS/HCC) TAKE 1 TABLET BY MOUTH ONCE [...] disease, with long-term current use of insulin ([facility] HHS/HCC) INJECT SQ PER SS THREE TIMES DAILY W/MEALS: 70-200=0U; 201-250=4U; 251-300=5U; 301-350=6U; 351-400=8U; >400 CALL MD 15 mL 10/27 Discontinued BD AUTOSHIELD DUO 30G X 5 MM MiscIndications: Type 2 diabetes 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, with long-term current use of insulin ([facility] HHS/HCC) USE WITH INSULIN 100 each 10/09 [...] disease, with long-term current use of insulin ([facility]) INJECT 50 UNITS SUBCUTANEOUSLY AT BEDTIME 15 mL 11/02 Discontinued Active Problems Problem Noted Date Diagnosed Date Post-menopausal 08/03/2024 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 with discogenic back pain and lower extremity pain 05/06/2024 Generalized anxiety disorder with panic attacks 10/15/2023 Hemorrhoids, unspecified hemorrhoid type 022 Chronic obstructive pulmonar y disease with frequent exacerbations ([facility]) 05/17/2022 Coronary artery disease invo lving [place] coronary artery of [place] heart with angina pectoris 10/28/2020 History of [...] disease, with long-term current use of insulin ([facility]) 04/23/2018 CAD (coronary artery disease) 04/23/2018 Dementia 04/23/2018 Altered mental status 04/23/2018 Status post kyphoplasty 03/25/2018 Closed T10 spinal fracture ([facility]) TIA (transient ischemic attack) 03/04/2018 Chest mass 02/27/2018 Compression fracture of thoracic vertebra ([facility]) 02/20/2018 Confusion 02/13/2018 Thoracic spine fracture ([facility]) 2017 Cough 01/28/2018 Serum creatinine raised 10/29/2017 Hiatal hernia 12/18/2016 Overview (07/04/2018): Overview: Gastroesophageal reflux disease with large hiatal hernia with evidence of partial organoaxial volvulus. 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 ([facility]) 05/20/2018 05/05/2024 Nail overgrowth 05/05/2018 08/03/2024 UTI (urinary tract infection) 04/23/2018 05/05/2024 Acute renal failure 04/22/2018 05/05/20 24 Dysuria 04/22/2018 12/23/2018 Hallucinations 04/22/2018 05/05/2024 Shortness of breath 02/13/2018 05/05/20 History of UTI 10/29/2017 05/05/2024 Chronic obstructive pulmonar y disease ([facility]) 05/17/2015 08/03/2024 Encounters Date Type Department Care Team Description 10/05/2024 Scan [facility] INFO [facility]VCS Scanned, [facility] 09/24/2024 Telephone [facility] Family & Internal Medicine [address] [phone] Karen Reyna FNP Refill Request 09/10/2024 Scan [facility] INFO SRVCS Scanned, [facility] 08/27/2024 Telephone [facility] Family & Internal [address] [address] Karen Reyna FNP Error 08/20/2024 Scan MG [...] Comments Blood Pressure 116/60 07/28/2024 11:20 AM ARCHITECTURAL DRAFTSPERSON Pulse 74 07/28/2024 11:20 AM ARCHITECTURAL DRAFTSPERSON Temperature 36.8 C (98.3 F) 07/28/2024 11:20 AM ARCHITECTURAL DRAFTSPERSON Respiratory Rate 14 07/28/2024 11:2 0 AM ARCHITECTURAL DRAFTSPERSON Oxygen Saturation 97% 07/28/2024 11: 20 AM ARCHITECTURAL DRAFTSPERSON Inhaled Oxygen Concentration - - Weight 82.5 kg (181 lb 12.8 oz) 024 11:20 AM ARCHITECTURAL DRAFTSPERSON Height 160 cm (5' 3 ) 07/28/2024 11:20 AM ARCHITECTURAL DRAFTSPERSON Body Mass Index 32.2 07/28/2024 11:20 AM ARCHITECTURAL DRAFTSPERSON Plan of Treatment Health Maintenance Due Date Last Done Comments Kidney Health Evaluation 1945 Hepatitis C 1963 Annual Medicare Wellness Visit 10/14/2011 Dexa Scan (General) 10/14/2011 Diabetes: Retinopathy Eye Exam 09/08/2021 09/08/2019, 01/07/2018 PHQ-2 (Physician [place]) 08/12/2024 10/15/2023 ASCVD LDL 10/14/2024 10/15/2023, 08/2020, [...] track( 10:46 AM CDT) No Edie Groves, engineer internship Procedure Name Priority Date/Time Associated Diagnosis Comments HEMOGLOBIN, GLYCOSYLATED Routine 05/05/2024 Type 2 diabetes 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, with long-term current use of insulin LIPID PANEL Routine 10/15/2023 9:55 AM ARCHITECTURAL DRAFTSPERSON Primary hypertension Other hyperlipidemia COLONOSCOPY Routine 07/25/2023 7:17 AM ARCHITECTURAL DRAFTSPERSON DILATED EYE EXAM (SCAN) Routine 09/08/2019 from Last 3 Months or Most Recently Relevant to Health Maintenance Results * (ABNORMAL) A1C (BACK OFFICE) (05/05/2024) HGB A1C 7.4(A) % [facility] 05/05/2024 us Karen Reyna [facility] Final Result [facility] [address] [place] [address], * (ABNORMAL) LIPID PANEL (10/15/2023 9:55 AM ARCHITECTURAL DRAFTSPERSON) CHOLESTEROL 170 <200 MG/DL 10/15/2023 3:36 PM ARCHITECTURAL DRAFTSPERSON [facility] TRIGLYCERIDES 143 <150 MG/DL 10/15/2023 3:36 PM ARCHITECTURAL DRAFTSPERSON [facility] HDL 49 >40 MG/DL 10/15/2023 3:36 PM ARCHITECTURAL DRAFTSPERSON [facility] LDL-C 92 <100 MG/DL 10/15/2023 3:36 PM ARCHITECTURAL DRAFTSPERSON [facility] VLDL CALCULATION 29(H) 5 - 28 MG/DL 10/15/2023 3:[address] [facility] [place] CHOL/HDL RATIO 3.5 0.0 - 4.0 10/15/2023 3:36 PM ARCHITECTURAL DRAFTSPERSON [facility] DAMASC[facility] LDL/HDL 1.9 0.41 - 2.13 10/15/2023 3:36 PM ARCHITECTURAL DRAFTSPERSON [facility] NON HDL CHOLESTEROL 121 <140 MG/DL 10/15/2023 3:36 PM ARCHITECTURAL DRAFTSPERSON [facility], DAMASCUS 10/15/2023 9:55 AM ARCHITECTURAL DRAFTSPERSON us Karen Axel [facility] Final Result [facility] [address] [facility] [place] [address], * DIABETIC RETINOPATHY EXAM (09/08/2019) us Documents Scanned SCANNING Final Result [facility] ON[facility] from Last 3 Months or Most Recently Relevant to Health Maintenance Insurance MEDICAID [facility] Care Teams Dry Wall Finisher Relationship Specialty Start Date End Date Karen Reyna FNP [address] [place] [id number] PCP - General Nurse Practitioner Family 07/22/18
--- OUTSIDE RECORDS SUMMARY | 2024-11-03 15:14 | XMS_ITS | Encounter Summary ---
Author Organization [facility] Address [address] [place] [address] Care Team Providers Care Edge Burnisher Uppers Name Role Phone Karen Reyna JEFFERY Primary Care Provider [phone] Encounter Details Date Type Department Care Team (Latest Contact Info) Description 07/31/2024 [employer] Message Enc [facility] [place] [address] [id number] Kris, [facility] Provider PAIN CLINIC REFERRAL Social History [...] Total Score: 4 10/15/19 24 8:48 AM PLANT TENDER documented as of this encounter Care Teams Edge Burnisher Uppers Relationship Specialty Start Date End Date Karen Reyna FNP [address] [place] [address] [phone] PCP - General Nurse Practitioner Family 07/22/18 documented as of this encounter
--- OUTSIDE RECORDS SUMMARY | 2024-11-03 15:14 | XMS_ITS | Encounter Summary ---
Author Organization [facility] Address [facility] [place] [address] Care Team Providers Care Analytical Data Scientist Name Role Phone Christian Cabezas MD Primary Care Provider Karen Chisholm Primary Care Provider [phone] Kenyatta Salamanca RN Unavailable [phone] Adam Ramirez MD Unavailable [phone] Edie Groves RN Unavailable [phone] Jenna Joyce MD Unavailable Encounter Details Date Type Department Care Team (Latest Contact Info) Description 03/21/2018 Abstract [facility] Jt Dos Santos [...] on filedocumented in this encounter Care Teams Analytical Data Scientist Relationship Specialty Start Date End Date Christian Cabzeas MD PCP - General 10/22/16 07/21/18 Karen Reyna FNP [address] [place] [address] PCP - General Nurse Practitioner Family 07/22/18 Adam Ramirez MD [address] [place] [address] PCP - Hospice Attending 07/22/18 07/14/19 Kenyatta Salamanca RN [address] [place] [address] Library Clerk (Ambulatory) REGISTERED NURSE 12/24/18 01/12/19 Edie Groves, RN [address] [address] Registered Nurse CARE MANAGEMENT 04/25/22 09/03/22 Jenna Joyce MD [address] [place] [address] Consulting Physician GENERAL SURGERY 07/25/23 07/25/24 documented as of this encounter
--- OUTSIDE RECORDS SUMMARY | 2024-11-03 15:14 | XMS_ITS | Encounter Summary ---
Author Organization [facility] Address [facility] [place] [address] Care Team Providers Care Distribution Lead Name Role Phone Christian Cabezas MD Primary Care Provider Karen Chisholm Primary Care Provider [phone] Kenyatta Salamanca RN Unavailable [phone] Adam Ramirez MD Unavailable [phone] Edie Groves RN Unavailable [phone] Jenna Joyce MD Unavailable Encounter Details Date Type Department Care Team (Latest Contact Info) Description 03/27/2018 Abstract [facility] Jt Dos Santos MD Social [...] on filedocumented in this encounter Care Teams Distribution Lead Relationship Specialty Start Date End Date Christian Cabezas MD PCP - General 10/22/16 07/21/18 Karen Reyna FNP [address] [place] [phone] PCP - General Nurse Practitioner Family 07/22/18 Adam Ramirez MD [address] [place] [phone] PCP - Hospice Attending 07/22/18 07/14/19 Kenaytta Salamanca RN [address] [place] [address] Stoneworking Belt Sander (Ambulatory) REGISTERED NURSE 12/24/18 01/12/19 Edie Groves, RN [address] [address] Registered Nurse CARE MANAGEMENT 04/25/22 09/03/22 Jenna Joyce MD [address] [place] [phone] Consulting Physician GENERAL SURGERY 07/25/23 07/25/24 documented as of this encounter
--- OUTSIDE RECORDS SUMMARY | 2024-11-03 15:14 | XMS_ITS | Encounter Summary ---
Author Organization [facility] Address [facility] [place] [address] Care Team Providers Care Thread Checker Name Role Phone Christian Cabezas MD Primary Care Provider Karen Chisholm Primary Care Provider [phone] Kenyatta Salamanca RN Unavailable [phone] Adam Ramirez MD Unavailable [phone] Edie Groves RN Unavailable [phone] Jenna Joyce MD Unavailable Encounter Details Date Type Department Care Team (Latest Contact Info) Description 04/07/2018 Abstract [facility] Jt Dos Santos MD Social [...] on filedocumented in this encounter Care Teams Thread Checker Relationship Specialty Start Date End Date Christian Cabezas MD PCP - General 10/22/16 07/21/18 Karen Reyna FNP [address] [place] [address] PCP - General Nurse Practitioner Family 07/22/18 Adam Ramirez MD [address] [place] [address] PCP - Hospice Attending 07/22/18 07/14/19 Kenyatta Salamanca RN [address] [place] [address] Office Clerk Assistant (Ambulatory) REGISTERED NURSE 12/24/18 01/12/19 Edie Groves, RN [address] [address] Registered Nurse CARE MANAGEMENT 04/25/22 09/03/22 Jenna Joyce MD [address] [place] [phone] Consulting Physician GENERAL SURGERY 07/25/23 07/25/24 documented as of this encounter
--- OUTSIDE RECORDS SUMMARY | 2024-11-03 15:14 | XMS_ITS | Clinical Summary ---
Author Organization [facility] [employer] Address [address] [facility] [place] [address] Care Team Providers Care Clinical Program Manager Name Role Phone Jason Botello MD Primary Care Provider [phone] Source Comments [employer],non-owned Affiliates and Associated Physician Practices is amultiple site organization consisting of ambulatory clinics and hospital sitesin [place], [place], [place] and [place]. This disclosure is being madepursuant to the Care Everywhere program and may not contain all information available regarding this patient. Last updated 18.[facility] Allergies No known active allergies Medications * [...] Documents on File Type Date Recorded Patient Director Energy Expl anation Adv Directive/Living Will/POA 03/14/2018 9:06 AM * Full Code (Latest Code Status on File) Date Activated Date Inactivated Comments 03/07/2018 6:12 PM 03/12/2018 12:24 PM Care Teams Clinical Program Manager Relationship Specialty [place] [address] [place] [phone] PCP - General 12/31/18
--- OUTSIDE RECORDS SUMMARY | 2024-11-03 15:14 | XMS_ITS | Clinical Summary ---
Author Organization [facility] Address [address] [place] [address] Phone Care Team Providers Care Journalism Instructor Name Role Phone Karen Reyna JEFFERY Primary Care Provider [phone] Allergies Active Allergy Reactions Criticality Noted Date [...] (XANAX) 1 MG tablet 09/20/2020 Active Aspirin Buf,YbAmte-TyNyjt-GuH, 81 MG tablet daily. Active atorvastatin (LIPITOR) [...] hy 05/20/2018 Atherosclerotic heart diseas e of [place] coronary artery without angina pectoris 05/20/2018 Closed [...] Influenza Vaccine (#1) 2024 04/12/2020 Care Teams Journalism Instructor Relationship Specialty Start Date End Date Karen Reyna FNP [address] [place] [id number] PCP - General Family Medicine 07/04/21
--- OUTSIDE RECORDS SUMMARY | 2024-11-03 15:14 | XMS_ITS | Encounter Summary ---
Author Organization [facility] Address [facility] [place] [address] Care Team Providers Care Haulpak Driver Name Role Phone Karen Reyna Primary Care Provider [phone] Jenna Joyce MD Unavailable Encounter Details Date Type Department Care Team (Late st Contact Info) Description 04/08/2024 [employer] Message Enc [facility] Multis[facility]ialty [facility] - [address], [address] [place] [address] Kris, [facility] Provider MRI results Social History Tobacco Use [...] Total Score: 4 10/15/19 24 8:48 AM RUN LEAD documented as of this encounter Care Teams Haulpak Driver Relationship Specialty Start Date End Date Karen Reyna FNP [address] [place] [phone] PCP - General Nurse Practitioner Family 07/22/18 Jenna Joyce MD [address] [place] [phone] Consulting Physician GENERAL SURGERY 07/25/23 07/25/24 documented as of this encounter
--- OUTSIDE RECORDS SUMMARY | 2024-11-03 15:14 | XMS_ITS | Encounter Summary ---
Author Organization [facility] Address [address] [place] [address] Care Team Providers Care Steamtable Worker Name Role Phone Karen Reyna Primary Care Provider [phone] Jenna Joyce MD Unavailable Encounter Details Date Type Department Care Team (Late st Contact Info) Description 02/06/2023 MyChart Message Enc [facility] Medical Group - [facility] [address] [place], [place] [id number] [facility] Provider Air Quality Message Social History Tobacco [...] documented as of this encounter Care Teams Steamtable Worker Relationship Specialty Start Date End Date Karen Reyna FNP [address] [place] [address] PCP - General Nurse Practitioner Family 07/22/18 Jenna Joyce MD [address] [place] [address] Consulting Physician GENERAL SURGERY 07/25/23 07/25/24 documented as of this encounter
--- OUTSIDE RECORDS SUMMARY | 2024-11-03 15:14 | XMS_ITS | Encounter Summary ---
Author Organization [facility] Address [facility] [place] [address] Care Team Providers Care Food Products Tester Name Role Phone Karen Reyna Primary Care Provider [phone] Jenna Joyce MD Unavailable Encounter Details Date Type Department Care Team (Late st Contact Info) Description 03/24/2024 getbetter! Message Enc [facility] Medical Group Multispecialty Care - [address], [address] [place] [address] Kris, [facility] Provider EMG result Social History [...] Total Score: 4 10/15/19 24 8:48 AM SENIOR ENGINEERING ASSOCIATE documented as of this encounter Care Teams Food Products Tester Relationship Specialty Start Date End Date Karen Reyna FNP [address] [place] [address] PCP - General Nurse Practitioner Family 07/22/18 Jenna Joyce MD [address] [place] [address] Consulting Physician GENERAL SURGERY 07/25/23 07/25/24 documented as of this encounter
--- OUTSIDE RECORDS SUMMARY | 2024-11-03 15:14 | XMS_ITS | Encounter Summary ---
Author Organization [facility] Address Replaced by [facility] [place] [address] Care Team Providers Care Cannon Fire Direction Specialist Name Role Phone Christian Cabezas MD Primary Care Provider Karen Chisholm Primary Care Provider [phone] Kenyatta Salamanca RN Unavailable [phone] Adam Ramirez MD Unavailable [phone] Edie Groves RN Unavailable [phone] Jenna Joyce MD Unavailable Encounter Details Date Type Department Care Team (Latest Contact Info) Description 04/21/2018 Abstract [facility] Medical Group Jt Dos aSntos MD Social History Tobacco Use Types Packs/Day [...] on filedocumented in this encounter Care Teams Cannon Fire Direction Specialist Relationship Specialty Start Date End Date Christian Cabezas MD PCP - General 10/22/16 07/21/18 Karen Reyna FNP [address] [place] [address] PCP - General Nurse Practitioner Family 07/22/18 Adam Ramirez MD [address] [place] [address] PCP - Hospice Attending 07/22/18 07/14/19 Kenyatta Salamanca RN [address] [place] [address] Supervisor Slitting And Shipping (Ambulatory) REGISTERED NURSE 12/24/18 01/12/19 Edie Groves, RN [address] [address] Registered Nurse CARE MANAGEMENT 04/25/22 09/03/22 Jenna Joyce MD [address] [place] [address] Consulting Physician GENERAL SURGERY 07/25/23 07/25/24 documented as of this encounter
--- OUTSIDE RECORDS SUMMARY | 2024-11-03 15:14 | XMS_ITS | Encounter Summary ---
Author Organization [facility] Address [facility] [place] [address] Care Team Providers Care Telegraphic Typewriter Mechanic Name Role Phone Karen Reyna Primary Care Provider [phone] Edie Groves RN Unavailable [phone] Jenna Joyce MD Unavailable Encounter Details Date Type Department Care Team (Late st Contact Info) Description 07/26/2022 Head Held High Message Enc [facility] [address] [address] Kris, [facility] Provider Stress test Social History [...] Coronavirus/COVID-19? No / Unsure 07/26/2022 9:56 AM SERVICE ORDER TAKER documented as of this encounter Plan of [...] documented as of this encounter Care Teams Telegraphic Typewriter Mechanic Relationship Specialty Start Date End Date Karen Reyna FNP [address] [place] [address] PCP - General Nurse Practitioner Family 07/22/18 Edie Groves, RN [address] [address] Registered Nurse CARE MANAGEMENT 04/25/22 09/03/22 Jenna Joyce MD [address] [place] [address] Consulting Physician GENERAL SURGERY 07/25/23 07/25/24 documented as of this encounter
--- NOTE | 2024-11-03 15:28 | PC.NURSE ---
With pt permission this RN called pt daughter Chelly who agreed to send her to pick pt up.
--- NOTE | 2024-11-03 15:32 | PC.NURSE ---
Attempted to call report to [facility], no answer. This RN left voicemail stating this call was an attempt to give report on this pt who would be returning to their facility
[2024-11-03 15:35] VITALS: BP 125/74; PULSE 84; RESP 16; O2SAT 97
== END 2024-11-03 15:30 | disposition home or self-care (01) ==
PROVIDERS: Emergency Provider Emergency Medicine; PCP Nurse Practitioner Family
DX: N39.0 Urinary tract infection, site not specified (principal); K57.92 Diverticulitis of intestine, part unspecified, without perforation or abscess without bleeding; J44.9 Chronic obstructive pulmonary disease, unspecified; J96.11 Chronic respiratory failure with hypoxia; Z99.81 Dependence on supplemental oxygen; I13.0 Hypertensive heart and chronic kidney disease with heart failure and stage 1 through stage 4 chronic kidney disease, or unspecified chronic kidney disease; E11.22 Type 2 diabetes mellitus with diabetic chronic kidney disease; N18.30 Chronic kidney disease, stage 3 unspecified; I50.9 Heart failure, unspecified; Z79.4 Long term (current) use of insulin; K21.9 Gastro-esophageal reflux disease without esophagitis; D64.9 Anemia, unspecified; F41.9 Anxiety disorder, unspecified; F32.A Depression, unspecified; M19.90 Unspecified osteoarthritis, unspecified site; I25.2 Old myocardial infarction
CPT/HCPCS: 36415; 74177; 80053; 81001; 83690; 83735; 85025; 87086; 99284; A9270; Q9967

== ENCOUNTER 2024-12-09 10:37 | Outpatient (CLI) | payer MEDICARE, MEDICAID, SELFPAY ==
--- NOTE | ~2024-12-09 | XR_ITS ---
XR abdomen/kub 1V Ordering provider: ASHLI Sandoval History: . R14.0 - Abdominal distension (gaseous) . Comparison: None. FINDINGS: BOWEL: Nonobstructive bowel gas pattern. ORGANOMEGALY: None. SIGNIFICANT PATHOLOGIC CALCIFICATIONS: None. Calcification seen in the pelvis are most likely phlebolith' s. Follow-up advised. OTHER: No free air is seen under the diaphragm. Vertebroplasty of T10 and L2. Degenerative changes of the spine. IMPRESSION: NO ACUTE ABDOMINAL FINDINGS. Reviewed, dictated and finalized at location A.
--- OUTSIDE RECORDS SUMMARY | 2024-12-09 11:56 | XMS_ITS | Encounter Summary ---
Author Organization [facility] Address [address] [place] [address] Care Team Providers Care Horticultural Therapist Name Role Phone Karen Reyna JEFFERY Primary Care Provider [phone] Encounter Details Date Type Department Care Team (Latest Contact Info) Description 07/31/2024 Clever Cloud Message Enc [facility] [place] [address] [id number] Kris, [facility] Provider PAIN CLINIC REFERRAL Social [...] Total Score: 4 10/15/19 24 8:48 AM PROVIDER RELATIONS REP documented as of this encounter Care Teams Horticultural Therapist Relationship Specialty Start Date End Date Karen Reyna FNP [address] [place] [address] [id number] PCP - General Nurse Practitioner Family 07/22/18 documented as of this encounter
--- OUTSIDE RECORDS SUMMARY | 2024-12-09 11:56 | XMS_ITS | Encounter Summary ---
Author Organization [facility] Address Formerly [facility], [address] [place] [address] Care Team Providers Care Senior Pharmacy Technician Name Role Phone Christian Cabezas MD Primary Care Provider Karen Chisholm Primary Care Provider [phone] Kenyatta Salamanca RN Unavailable [phone] Adam Ramirez MD Unavailable [phone] Edie Groves RN Unavailable [phone] Jenna Joyce MD Unavailable Encounter Details Date Type Department Care Team (Latest Contact Info) Description 04/21/2018 Abstract [facility] Medical Group Jt Dos Santos MD Social [...] on filedocumented in this encounter Care Teams Senior Pharmacy Technician Relationship Specialty Start Date End Date Christian Cabezas MD PCP - General 10/22/16 07/21/18 Karen Reyna FNP [address] [place] [address] PCP - General Nurse Practitioner Family 07/22/18 Adam Ramirez MD [address] [place] [address] PCP - Hospice Attending 07/22/18 07/14/19 Kenyatta Salamanca RN [address] [place] [address] Pelota Maker (Ambulatory) REGISTERED NURSE 12/24/18 01/12/19 Edie Groves, RN [address] [address] Registered Nurse CARE MANAGEMENT 04/25/22 09/03/22 Jenna Joyce MD [address] [place] [address] Consulting Physician GENERAL SURGERY 07/25/23 07/25/24 documented as of this encounter
--- OUTSIDE RECORDS SUMMARY | 2024-12-09 11:56 | XMS_ITS | Encounter Summary ---
Author Organization [facility] Address [facility] [place] [address] Care Team Providers Care Orthopaedic Technologist Name Role Phone Karen Reyna Primary Care Provider [phone] Jenna Joyce MD Unavailable Encounter Details Date Type Department Care Team (Late st Contact Info) Description 04/08/2024 [email or web address] Message Enc [facility] Medical Group Multispecialty Care - [address], [address] [place] [address] Kris, [facility] Provider MRI results Social History Tobacco Use [...] Total Score: 4 10/15/19 24 8:48 AM CLINICAL HAEMATOLOGIST documented as of this encounter Care Teams Orthopaedic Technologist Relationship Specialty Start Date End Date Karen Reyna FNP [address] [place] [address] PCP - General Nurse Practitioner Family 07/22/18 Jenna Joyce MD [address] [place] [address] Consulting Physician GENERAL SURGERY 07/25/23 07/25/24 documented as of this encounter
--- OUTSIDE RECORDS SUMMARY | 2024-12-09 11:56 | XMS_ITS | Encounter Summary ---
Author Organization [facility] Address [facility] [place] [address] Care Team Providers Care Spa Therapist Name Role Phone Christian Cabezas MD Primary Care Provider Karen Chisholm Primary Care Provider [phone] Kenyatta Salamanca RN Unavailable [phone] Adam Ramirez MD Unavailable [phone] Edie Groves RN Unavailable [phone] Jenna Joyce MD Unavailable Encounter Details Date Type Department Care Team (Latest Contact Info) Description 04/07/2018 Abstract [facility] Medical Group Jt Dos Santos [...] on filedocumented in this encounter Care Teams Spa Therapist Relationship Specialty Start Date End Date Christian Cabezas MD PCP - General 10/22/16 07/21/18 Karen Reyna FNP [address] [place] [address] PCP - General Nurse Practitioner Family 07/22/18 Adam Ramirez MD [address] [place] [address] PCP - Hospice Attending 07/22/18 07/14/19 Kenyatta Salamanca RN [address] [place] [address] Product Development Intern (Ambulatory) REGISTERED NURSE 12/24/18 01/12/19 Edie Groves, RN [address] [address] Registered Nurse CARE MANAGEMENT 04/25/22 09/03/22 Jenna Joyce MD [address] [place] [address] Consulting Physician GENERAL SURGERY 07/25/23 07/25/24 documented as of this encounter
--- OUTSIDE RECORDS SUMMARY | 2024-12-09 11:56 | XMS_ITS | Encounter Summary ---
Author Organization [facility] Address [facility] [place] [address] Care Team Providers Care Park Ranger Name Role Phone Karen Reyna Primary Care Provider [phone] Jenna Joyce MD Unavailable Encounter Details Date Type Department Care Team (Late st Contact Info) Description 03/09/2024 eelusion Message Enc [facility] Medical Group Multispecialty Care - [address], [address] [place] [address] Kris, [facility] Provider Lab Results Social History Tobacco Use [...] Total Score: 4 10/15/19 24 8:48 AM RUBBER DOWN documented as of this encounter Care Teams Park Ranger Relationship Specialty Start Date End Date Karen Reyna FNP [address] [place] [address] PCP - General Nurse Practitioner Family 07/22/18 Jenna Joyce MD [address] [place] [address] Consulting Physician GENERAL SURGERY 07/25/23 07/25/24 documented as of this encounter
--- OUTSIDE RECORDS SUMMARY | 2024-12-09 11:56 | XMS_ITS | Encounter Summary ---
Author Organization [facility] Address [facility] [place] [address] Care Team Providers Care Junior Administrative Assistant Name Role Phone Karen Reyna Primary Care Provider [phone] Edie Groves RN Unavailable [phone] Jenna Joyce MD Unavailable Encounter Details Date Type Department Care Team (Late st Contact Info) Description 07/26/2022 Carreira Beauty Message Enc [facility] [address] [address] Kris, [facility] Provider Stress test Social History Tobacco Use [...] Coronavirus/COVID-19? No / Unsure 07/26/2022 9:56 AM RESUME SPECIALIST documented as of this encounter Plan of [...] documented as of this encounter Care Teams Junior Administrative Assistant Relationship Specialty Start Date End Date Karen Reyna FNP [address] [place] [address] PCP - General Nurse Practitioner Family 07/22/18 Edie Groves, RN [address] [address] Registered Nurse CARE MANAGEMENT 04/25/22 09/03/22 Jenna Joyce MD [address] [place] [address] Consulting Physician GENERAL SURGERY 07/25/23 07/25/24 documented as of this encounter
--- OUTSIDE RECORDS SUMMARY | 2024-12-09 11:56 | XMS_ITS | Encounter Summary ---
Author Organization [facility] Address [facility] [place] [address] Care Team Providers Care Bank Cashier Name Role Phone Christian Cabezas MD Primary Care Provider Karen Chisholm Primary Care Provider [phone] Kenyatta Salamanca RN Unavailable [phone] Adam Ramirez MD Unavailable [phone] Edie Groves RN Unavailable [phone] Jenna Joyce MD Unavailable Encounter Details Date Type Department Care Team (Latest Contact Info) Description 03/21/2018 Abstract [facility] Medical Group Jt [...] on filedocumented in this encounter Care Teams Bank Cashier Relationship Specialty Start Date End Date Christian Cabezas MD PCP - General 10/22/16 07/21/18 Karen Reyna FNP [address] [place] [address] PCP - General Nurse Practitioner Family 07/22/18 Adam Ramirez MD [address] [place] [address] PCP - Hospice Attending 07/22/18 07/14/19 Kenyatta Salamanca RN [address] [place] [address] Leather Softener (Ambulatory) REGISTERED NURSE 12/24/18 01/12/19 Edie Groves, RN [address] [address] Registered Nurse CARE MANAGEMENT 04/25/22 09/03/22 Jenna Joyce MD [address] [place] [address] Consulting Physician GENERAL SURGERY 07/25/23 07/25/24 documented as of this encounter
--- OUTSIDE RECORDS SUMMARY | 2024-12-09 11:56 | XMS_ITS | Clinical Summary ---
Author Organization [facility] Address [address] [place] [address] Phone Care Team Providers Care National Service Officer Name Role Phone Karen Reyna JEFFERY Primary Care Provider Allergies Active Allergy Reactions Criticality Noted Date Comments Meperidine Diarrhea,nausea,Vomiting 10/10/2020 Medications nitroglycerin (NITROSTAT) 0.4 MG SL tablet 0 01/27/2018 Active oxyCODONE-aceta minophen (ROXICET,PERCOC ET) 5-325 MG/5ML solution take 1-2 tab up to 4 times daily 0 01/27/2018 Active PARoxetine (PAXIL) 40 MG tablet 1 tab daily 0 01/27/2018 Active insulin glargine (LANTUS) 100 UNIT/ML injection inject 40 units daily 0 01/27/2018 Active fluticasone-wes anterol (BREO ELLIPTA) 200-25 MCG/INH inhaler 1 puff daily 0 01/27/2018 Active hydrALAZINE (APRESOLINE) 25 MG tablet take 1 tab 3 times daily 0 01/27/2018 Active pantoprazole (PROTONIX) 40 MG EC tablet 1 tab daily 0 01/27/2018 Acti ve acetaminophen (TYLENOL) 325 MG tablet 1-2 tabs every 4 hours PRN 0 01/27/2018 Active carvedilol (COREG) 25 MG tablet 1 tab 2 times daily 0 01/27/2018 Active furosemide (LASIX) 20 MG tablet 1 tab daily 0 01/27/2018 Active montelukast (SINGULAIR) 10 MG tablet 1 tab once daily 0 01/27/2018 Active atorvastatin (LIPITOR) 20 MG tablet 1 tab daily 0 01/27/2018 Active lisinopril (PRINIVIL,ZESTR IL) 20 MG tablet 1 tab 2 times daily 0 01/27/2018 Active albuterol HFA (VENTOLIN HFA) 108 (90 Base) MCG/ACT inhaler 2 puffs every 6 hours PRN 0 01/27/2018 Active albuterol HFA (PROVENTIL HFA) 108 (90 Base) MCG/ACT inhaler Inhale 2 puffs every 30 minutes as needed Active ALPRAZolam (XANAX) 1 MG tablet 09/20/2020 Active Aspirin Buf,CaCarb-MgCa rb-MgO, 81 MG tablet daily. Active atorvastatin (LIPITOR) 20 MG tablet 09/17/2020 Active Symbicort 80-4.5 MCG/ACT inhaler 10/03/2020 Active carvedilol (COREG) 25 MG tablet 09/17/2020 Active donepezil (ARICEPT) 5 MG tablet 09/17/2020 Active furosemide (LASIX) 20 MG tablet 09/17/2020 Active glipiZIDE (GLUCOTROL XL) 10 MG 24 hr tablet 09/17/2020 Active Accu-Chek Dariela Plus test strip 07/28/2020 Act gianna hydrALAZINE (APRESOLINE) 25 MG tablet bid 09/17/2020 Active Lantus SoloStar 100 UNIT/ML injection 09/08/2020 Active NovoFine Autocover 30G X 8 MM misc 07/18/2020 Active montelukast (SINGULAIR) 10 MG tablet 09/17/2020 Active pantoprazole (PROTONIX) 40 MG EC tablet 09/17/2020 Active PARoxetine (PAXIL) 40 MG tablet 09/17/2020 Active PARoxetine (PAXIL) 20 MG tablet 09/17/2020 Active Januvia 100 MG tablet 09/17/2020 Active traMADol (ULTRAM) 50 MG tablet 08/11/2020 Active [...] hy 05/20/2018 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 05/20/2018 Closed fracture thoracic vertebra 03/07/2018 Essential (primary) hypertension 01/27/2018 Hyperlipidemia 01/27/2018 Hypertension 12/16/2013 Diabetes mellitus 12/16/2013 Immunizations Immunization Administration Dates Next Due Influenza Split High [...] drink = 0.6 oz pur e alcohol) Comments Unknown Sex and Gender Information Value Date Recorded Sex Assigned at Not on file Legal Sex Female 8:02 AM [facility] Gender Identity Not on file Sexual Orientation [...] Medium Risk (1 of 4 - PCV) 1996 Influenza Vaccine (Season Ended) 2025 04/12/20 20 Insurance [facility] MEDICARE ADVANTAGE MEDICARE ADVANTAGE Care Teams National Service Officer Relationship Specialty Start Date End Date Karen Reyna FNP [address] [place] [address] PCP - General Family Medicine 07/04/21
--- OUTSIDE RECORDS SUMMARY | 2024-12-09 11:56 | XMS_ITS | Clinical Summary ---
Author Organization [facility] Address [address] [facility] [place] [address] Care Team Providers Care Awning Craftsman Name Role Phone Jason Botello MD Primary Care Provider [phone] Source Comments [employer] [facility],non-owned Affiliates and Associated Physician Practices is amultiple site organization consisting of ambulatory clinics and hospital sitesin [place], [place], [place] and [place]. This disclosure is being madepursuant to the Care Everywhere program and may not contain all information available regarding this patient. Last updated 18.[employer] [facility] Allergies No known active allergies Medications * Be aware that medications may not be up to date on this document. Alwaysverify current medications with the patient. ALPRAZolam (XANAX) 1 MG tabletIndication s:Anxiety Take 1 mg by mouth 3 times daily Reasons: Feeling Anxious Active atorvastatin (LIPITOR) 20 MG tabletIndication s:Hyperlipidemia Take 20 mg by mouth at bedtime Reasons: High Amount of Fats in the Blood Active carvedilol (COREG) 25 MG tabletIndication s:Heart Failure,Primary Hypertension (Inactive),cardi ac stent Take 25 mg by mouth 2 times daily with morning and evening meal Reasons: Heart Failure, High Blood Pressure of Unknown Cause, cardiac stent Active SITagliptin (JANUVIA) 100 MG tabletIndication s:Type 2 Diabetes Mellitus Take 100 mg by mouth once daily Reasons: Type 2 Diabetes Active insulin glargine (LANTUS) vialIndications: Type 2 Diabetes Mellitus Inject 40 Units subcutaneously at bedtime Reasons: Type 2 Diabetes Active montelukast (SINGULAIR) 10 MG tabletIndication s:Asthma Take 10 mg by mouth at bedtime Reasons: Asthma Active albuterol HFA (PROVENTIL;AJAY KANCHAN;PROAIR) 108 (90 BASE) MCG/ACT inhalerIndicatio ns:Asthma Inhale 2 puffs by mouth every 4 hours as needed for Shortness of Breath Reasons: Asthma Active HYDROcodone-acet aminophen (NORCO) 5-325 MG tablet Take 2 tablets by mouth every 6 hours as needed 32 tablet 03/11/20 18 Active methocarbamol (ROBAXIN) 500 MG tablet Take 1 tablet by mouth every 6 hours as needed for Muscle Spasms 30 tablet 03/11/20 18 Active glipiZIDE CR 24hr (GLUCOTROL XL) 1.25 [...] at Not on file Legal Sex Female 11:34 AM CDT Gender Identity Not on file Sexual [...] - 1-dose 75+ series) 2021 COVID-19 VACCINE ( - 2023-2 5 season) 2024 DEPRESSION SCREENING 08/12/2024 INFLUENZA VACCINE (Season Ended) 2025 HEPATITIS B VACCINE Aged Out No longe [...] on patient's age to complete this topic Insurance [facility] MEDICAID - [place] Advance Directives Documents on File Type Date Recorded Patient Campaign Associate Expl anation Adv Directive/Living Will/POA 03/14/2018 9:06 AM * Full Code (Latest Code Status on File) Date Activated Date Inactivated Comments 03/07/2018 6:12 PM 03/12/2018 12:24 PM Care Teams Awning Craftsman Relationship Specialty Start Date End Date Jason Botello MD [address] [place] [phone] PCP - General 12/31/18
--- OUTSIDE RECORDS SUMMARY | 2024-12-09 11:56 | XMS_ITS | Encounter Summary ---
Author Organization [facility] Address [address] [place] [address] Care Team Providers Care Dipper And Baker Name Role Phone Karen Reyna Primary Care Provider [phone] Jenna Joyce MD Unavailable Encounter Details Date Type Department Care Team (Late st Contact Info) Description 02/06/2023 MyChart Message Enc [facility] Medical Group - [facility] [address] [place], [place] [address] [facility] Provider Air Quality Message [...] documented as of this encounter Care Teams Dipper And Baker Relationship Specialty Start Date End Date Karen Reyna FNP [address] [place] [address] PCP - General Nurse Practitioner Family 07/22/18 Jenna Joyce MD [address] [place] [address] Consulting Physician GENERAL SURGERY 07/25/23 07/25/24 documented as of this encounter
--- OUTSIDE RECORDS SUMMARY | 2024-12-09 11:56 | XMS_ITS | Encounter Summary ---
Author Organization [facility] Address [facility] [place] [address] Care Team Providers Care Health Care Sanitary Technician Name Role Phone Karen Reyna Primary Care Provider [phone] Jenna Joyce MD Unavailable Encounter Details Date Type Department Care Team (Late st Contact Info) Description 03/24/2024 Touchstorm Message Enc [facility] Medical Group Multispecialty Care - [address], [address] [place] [address] Kris, [facility] Provider EMG result Social History [...] Total Score: 4 10/15/19 24 8:48 AM 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
--- OUTSIDE RECORDS SUMMARY | 2024-12-09 11:56 | XMS_ITS | Encounter Summary ---
Author Organization [facility] Address [facility] [place] [address] Care Team Providers Care Financial Intern Name Role Phone Christian Cabezas MD Primary Care Provider Karen Chisholm Primary Care Provider [phone] Kenyatta Salamanca RN Unavailable [phone] Adam Ramirez MD Unavailable [phone] Edie Groves RN Unavailable [phone] Jenna Joyce MD Unavailable Encounter Details Date Type Department Care Team (Latest Contact Info) Description 03/27/[address] [facility] Jt Dos Santos MD Social [...] on filedocumented in this encounter Care Teams Financial Intern Relationship Specialty Start Date End Date Christian Cabezas MD PCP - General 10/22/16 07/21/18 Karen Reyna FNP [address] [place] [address] PCP - General Nurse Practitioner Family 07/22/18 Adam Ramirez MD [address] [place] [address] PCP - Hospice Attending 07/22/18 07/14/19 Kenyatta Salamanca RN [address] [place] [address] Knitting Machine Fixer (Ambulatory) REGISTERED NURSE 12/24/18 01/12/19 Edie Groves, RN [address] [address] Registered Nurse CARE MANAGEMENT 04/25/22 09/03/22 Jenna Joyce MD [address] [place] [address] Consulting Physician GENERAL SURGERY 07/25/23 07/25/24 documented as of this encounter
--- OUTSIDE RECORDS SUMMARY | 2024-12-09 11:56 | XMS_ITS | Clinical Summary ---
Author Organization [facility] Address [address] [place] [address] Care Team Providers Care Hand Mexican Food Maker Name Role Phone Karen Reyna JEFFERY Primary Care Provider [phone] Allergies Active Allergy Reactions Criticality Noted Date [...] disease, with long-term current use of insulin ([facility]) 1 Units by Does not apply route 3 (three) times daily. 300 Container 2018 Active Additional Information Patient taking differently:1 Units Does not apply 3 times daily,Indications: diabetes, Reported on 07/28/2024 Alcohol Swabs (ALCOHOL PREP) 70 % PadsIndications: Type 2 diabetes 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, with long-term current use of insulin ([facility]) Use as directed three times daily 300 each 2018 Active Additional Information Patient taking differently:, Use as directed three times daily,Indications: Diabetes Mellitus, Reported on 07/28/2024 magnesium oxide (MAG-OX) 400 (240 Mg) MG tabletIndication s:08/23/22 per [facility] instructions Take 1 tablet (400 mg total) by mouth daily. Indications: 08/23/22 per [facility] instructions 2021 Active gabapentin (NEURONTIN) 100 MG capsuleIndicatio ns:Sciatica Take 1 capsule (100 mg total) by mouth every evening. 90 capsule 1 2021 Active hydrocortisone (CORTIZONE) 1 % creamIndications :08/23/22 per [facility] instructions Apply topically 2 (two) times daily as needed (itching). Indications: 08/23/22 per [facility] instructions Active Multiple Vitamins-Iron (MULTI-VITAMIN/I BASHIR) TabIndications:s uppliment Indications: suppliment Take one tablet daily 90 tablet 3 2022 Active Blood Glucose Monitoring Suppl (ONETOUCH VERIO) w/Device KitIndications:T ype 2 diabetes 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, with long-term current use of insulin ([facility]) Use to check blood glucose TID for diabetes 1 kit 2023 Active Glucose Blood (ACCU-CHEK GUIDE) test stripIndications :Type 2 diabetes 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, with long-term current use of insulin ([facility]) DIABETIC TESTING SUPPLY: USE THREE TIMES DAILY [...] disease, with long-term current use of insulin ([facility]) Use with insulin 4 times daily 400 each 2023 Active nitroglycerin (NITROSTAT) 0.4 MG SL tabletIndication s:Angina Pectoris Place 1 tablet (0.4 mg total) under the tongue every 5 (five) minutes as needed for Chest Pain. Indications: Angina Pectoris May repeat a total of 3 times 90 tablet 1 2023 Active OXYGENIndication s:Unilateral emphysema ([facility]) 2 L/min by Nasal route nightly at bedtime. 1 Device 11 2023 Active phenylephrine-co coa butter (PREPARATION H) 0.25-88.44 % suppositoryIndic ations:Hemorrhoi ds, unspecified hemorrhoid type Place 1 suppository rectally 4 (four) times daily as needed for Hemorrhoids. 30 suppository 2 2023 Active Skin Protectants, Misc. (MINERIN) CreamIndications :08/23/22 per [facility] instructions Apply topically daily. Indications: 08/23/22 per [facility] instructions 113 g 1 2023 Active sodium chloride (OCEAN) 0.65 % SolutionIndicati ons:08/23/22 per [facility] instructions 1 spray by Each Nostril route every 6 (six) hours as needed for Dryness. Indications: 08/23/22 per [facility] instructions 30 mL 2 2023 Active TRUEPLUS GLUCOSE ON THE GO 4 g chewable tabletIndication s:08/23/22 per [facility] instructions Chew 1 tablet (4 g total) by mouth as needed for Low blood sugar. Indications: 08/23/22 per [facility] instructions 1 q 15min as needed until [...] and Nails 90 tablet 3 2023 Active glipiZIDE XL (GLUCOTROL XL) 10 MG 24 hr tabletIndication s:GERD (gastroesophagea l reflux disease),Type 2 diabetes 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, with long-term current use of insulin ([facility]),General ized anxiety disorder with panic attacks,Other hyperlipidemia,A nxiety,Essential hypertension,Dem entia ([facility]),Allerg ic,Unilateral emphysema ([facility]),Muscle spasms of both lower extremities,Naus ea,Chronic bilateral [...] 50 g 2 2023 Active Continuous Glucose Engineering Aide (FREESTYLE MARYCARMEN 3 READER) DeviceIndication s:Type 2 diabetes 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, with long-term current use of insulin ([facility]) One reader to use for CGM 1 each 2023 Active Continuous Glucose Sensor (FREESTYLE MARYCARMEN 3 SENSOR) MiscIndications: Type 2 diabetes 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, with long-term current use of insulin ([facility]) Apply one sensor every 14 days 6 [...] disease, with long-term current use of insulin ([facility]) TAKE 1 TABLET BY MOUTH ONCE [...] disease, with long-term current use of insulin ([facility]) TAKE 1 TABLET BY MOUTH ONCE DAILY 30 tablet 1 2024 Active PARoxetine (PAXIL) 20 MG tabletIndication s:Anxiety TAKE 1 TABLET BY MOUTH DAILY WITH 40MG=60MG DOSE 30 tablet 2024 Active PARoxetine (PAXIL) 40 MG tabletIndication s:Anxiety TAKE 1 TABLET BY MOUTH ONCE DAILY 30 tablet 2024 Active Insulin Pen Needle (BD AUTOSHIELD DUO) 30G X 5 MM MiscIndications: Type 2 diabetes 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, with long-term current use of insulin ([facility]CC) USE WITH INSULIN 100 each 2 2024 Active insulin lispro, 1 Unit Dial, (HUMALOG KWIKPEN) 100 UNIT/ML injection (PEN)Indications :Type 2 diabetes 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, with long-term current use of insulin ([facility]) INJECT SQ PER SS THREE TIMES DAILY W/MEALS: 70-200=0U; 201-250=4U; 251-300=5U; 301-350=6U; 351-400=8U; >400 CALL MD 15 mL 2024 Active Easy Touch Lancets 30G MiscIndications: Type 2 diabetes 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, with long-term current use of insulin ([facility]) DIABETIC TESTING SUPPLY: USE THREE TIMES DAILY 100 each 3 2024 Active methocarbamol (ROBAXIN) 750 MG TabIndications:M uscle spasms of both lower extremities TAKE 1 TABLET BY MOUTH THREE TIMES DAILY NEEDED FOR MUSCLE SPASM 60 tablet 2024 Active insulin glargine (LANTUS SOLOSTAR) 100 UNIT/ML injection (PEN)Indications :Type 2 diabetes 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, with long-term current use of insulin ([facility]) INJECT 50 UNITS SUBCUTANEOUSLY AT BEDTIME 15 mL 3 2024 Active Fluticasone-Umec lidin-Vilant (TRELEGY ELLIPTA) 100-62.5-25 MCG/ACT AEROSOL POWDER, BREATH ACTIVATEDIndicat ions:Unilateral emphysema ([facility]HS/HCC) INHALE 1 PUFF BY MOUTH DAILY 60 each 1 2024 Active ondansetron (ZOFRAN-ODT) 4 MG disintegrating tabletIndication s:04/26/22 per [facility] instructions Take 1 tablet (4 mg total) by mouth every 8 (eight) hours as needed for Nausea. Indications: 04/26/22 per [facility] instructions 20 tablet 2024 Active traMADol (ULTRAM) 50 MG tabletIndication s:Chronic Pain Indications: Chronic Pain TAKE 1 TABLET BY MOUTH EVERY 6 HOURS NEEDED FOR ACUTE PAIN 30 tablet 1 2024 Active ALPRAZolam (XANAX) 0.5 MG tabletIndication s:Generalized anxiety disorder with panic attacks TAKE 1 TABLET BY MOUTH THREE TIMES DAILY TAKE 1 1/2 TABLETS BY MOUTH AT BEDTIME 135 tablet 2024 Active ondansetron (ZOFRAN-ODT) 4 MG disintegrating tabletIndication s:04/26/22 per [facility] instructions Take 1 tablet (4 mg total) by mouth every 8 (eight) hours as needed for Nausea. 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) 05/17/2022 Coronary artery disease invo lving cocopah coronary artery of [place] heart with angina pectoris 10/28/2020 History of [...] disease, with long-term current use of insulin ([facility]) 04/23/2018 CAD (coronary artery disease) 04/23/2018 Dementia 04/23/2018 Altered mental status 04/23/2018 Status post kyphoplasty 03/25/2018 Closed T10 spinal fracture ([facility]) TIA (transient ischemic attack) 03/04/2018 Chest mass 02/27/2018 Compression fracture of thoracic vertebra ([facility]) 02/20/2018 Confusion 02/13/2018 Thoracic spine fracture ([facility]) 2017 Cough 01/28/2018 Serum creatinine raised 10/29/2017 Hiatal hernia 12/18/2016 Overview (07/04/2018): Overview: Gastroesophageal reflux disease with large hiatal hernia with evidence of partial organoaxial volvulus. Fracture of lumbar vertebra ([facility]) Frequent falls 09/13/2016 Anxiety 05/17/2015 CHF (congestive heart failure) (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) 05/20/2018 05/05/2024 Nail overgrowth 05/05/2018 08/03/2024 UTI (urinary tract infection) 04/23/2018 05/05/2024 Acute renal failure 04/22/2018 05/05/20 Dysuria 04/22/2018 12/23/2018 Hallucinations 04/22/2018 05/05/2024 Shortness of breath 02/13/2018 05/05/20 History of UTI 10/29/2017 05/05/2024 Chronic obstructive pulmonar y disease ([facility]) 05/17/2015 08/03/2024 Encounters Date Type Department Care Team Description 11/23/2024 Telephone [facility] Family & Internal [address] [address] Karen Reyna FNP Referral 11/20/2024 Telephone [facility] Internal [address] [address] Karen Reyna FNP Information 11/14/2024 Scan [facility] Scanned, [facility] 11/03/2024 Scan [facility] Scanned, [facility] Lab (SCAN); CT (SCAN) 10/05/2024 Scan [facility] Scanned, Doc [facility] 09/24/2024 Telephone [facility] Family Internal [address] [phone] Karen Reyna, JEFFERY Refill Request 09/10/2024 Scan [facility] Scanned, Doc [facility] from Last 3 Months Immunizations Immunization Administration Dates Next Due Fluad influenza vaccine, [...] Comments Blood Pressure 116/60 07/28/2024 11:20 AM DIRECTOR OF PUBLIC SAFETY Pulse 74 07/28/2024 11:20 AM DIRECTOR OF PUBLIC SAFETY Temperature 36.8 C (98.3 F) 07/28/2024 11:20 AM DIRECTOR OF PUBLIC SAFETY Respiratory Rate 14 07/28/2024 11:2 0 AM DIRECTOR OF PUBLIC SAFETY Oxygen Saturation 97% 07/28/2024 11: 20 AM DIRECTOR OF PUBLIC SAFETY Inhaled Oxygen Concentration - - Weight 82.5 kg (181 lb 12.8 oz) 024 11:20 AM DIRECTOR OF PUBLIC SAFETY Height 160 cm (5' 3 ) 07/28/2024 11:20 AM DIRECTOR OF PUBLIC SAFETY Body Mass Index 32.2 07/28/2024 11:20 AM DIRECTOR OF PUBLIC SAFETY Plan of Treatment Health Maintenance Due Date Last Done Comments Kidney Health Evaluation 1945 Hepatitis C 1963 Annual Medicare Wellness Visit 10/14/2011 Dexa Scan (General) 10/14/2011 Diabetes: Retinopathy Eye Exam 09/08/2021 09/08/2019, 01/07/2018 PHQ-2 (Physician [place]) 08/12/2024 10/15/2023 ASCVD LDL 10/14/2024 10/15/2023, 10/08/2020, 05/11/2020, Additional history exists Lipid Panel 10/14/2024 10/15/2023, 10/0 08/2020, 05/11/2020 Hemoglobin A1C 11/02/2024 05/05/2024, 12/2023, 01/08/2023, Additional history exists COVID-19 Vaccine [...] 1996 (Going to Outside Clinic) Pneumococcal Vaccine: 50+ Years Completed 01/11/2020, 08/18/2019, 02/27/2018 Colorectal Cancer Screening Colonoscopy (10 Years) Discontinued 07/25/2023, 07/25/2023 Meningococcal B Vaccine Aged Out No l [...] 022 10:46 AM CDT) No Edie Groves, auto parts clerk Procedure Name Priority Date/Time Associated Diagnosis Comments CT GENERIC 11/03/2024 OUTSIDE LAB (SCAN ORDER) 11/03/2024 OUTSIDE LAB (SCAN ORDER) 11/03/2024 OUTSIDE LAB (SCAN ORDER) 11/03/2024 OUTSIDE LAB (SCAN ORDER) 11/03/2024 HEMOGLOBIN, GLYCOSYLATED Routine 05/05/2024 Type 2 diabetes 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, with long-term current use of insulin LIPID PANEL Routine 10/15/2023 9:55 AM DIRECTOR OF PUBLIC SAFETY Primary hypertension Other hyperlipidemia COLONOSCOPY Routine 07/25/2023 7:17 AM DIRECTOR OF PUBLIC SAFETY DILATED EYE EXAM (SCAN) Routine 09/08/2019 from Last 3 Months or Most Recently Relevant to Health Maintenance Results * CT GENERIC (11/03/2024) Anatomical Region Laterality Modality Other 11/03/2024 [facility] Scanned SCANNING Final Resu lt * OUTSIDE LAB (SCAN ORDER) (11/03/2024) Only the most recent of4 resultswithin the time period is included. 11/03/2024 [facility] Scanned SCANNING Final Resu lt * (ABNORMAL) A1C (BACK OFFICE) (05/05/2024) HGB A1C 7.4(A) % [facility] 05/05/2024 Karen Reyna [facility] Final Result [facility] [address] [place] [address], [place] * (ABNORMAL) LIPID PANEL (10/15/2023 9:55 AM DIRECTOR OF PUBLIC SAFETY) CHOLESTEROL 170 <200 MG/DL 10/15/2023 3:36 PM DIRECTOR OF PUBLIC SAFETY [facility] TRIGLYCERIDES 143 <150 MG/DL 10/15/2023 3:36 PM DIRECTOR OF PUBLIC SAFETY [facility] HDL 49 >40 MG/DL 10/15/2023 3:36 PM DIRECTOR OF PUBLIC SAFETY [facility] LDL-C 92 <100 MG/DL 10/15/2023 3:36 PM [facility] [place] VLDL CALCULATION 29(H) 5 - 28 MG/DL 10/15/2023 3:36 PM DIRECTOR OF PUBLIC SAFETY [facility] [place] CHOL/HDL RATIO 3.5 0.0 - 4.0 10/15/2023 3:36 PM DIRECTOR OF PUBLIC SAFETY [facility] [place] LDL/HDL 1.9 0.41 - 2.13 10/15/2023 3:36 PM DIRECTOR OF PUBLIC SAFETY [facility] [place] NON HDL CHOLESTEROL 121 <140 MG/DL 10/15/2023 3:36 PM DIRECTOR OF PUBLIC SAFETY [facility] [place], [place] 10/15/2023 9:55 AM DIRECTOR OF PUBLIC SAFETY us Karen Axel [facility] Final Result [facility] [address] [facility] [place] [address], * DIABETIC RETINOPATHY EXAM (09/08/2019) us Documents Scanned SCANNING Final Result [facility] from Last 3 Months or Most Recently Relevant to Health Maintenance Insurance MEDICAID [facility] Care Teams Hand Mexican Food Maker Relationship Specialty Start Date End Date Karen Reyna FNP [address] [place] [address] PCP - General Nurse Practitioner Family 07/22/18
== END 2024-12-09 10:38 | disposition home or self-care (01) ==
PROVIDERS: PCP Nurse Practitioner Family; Visit Provider Nurse Practitioner Family
DX: K62.5 Hemorrhage of anus and rectum (principal); R14.0 Abdominal distension (gaseous); R19.7 Diarrhea, unspecified; Z87.19 Personal history of other diseases of the digestive system
CPT/HCPCS: 74018

== ENCOUNTER 2024-12-22 01:09 | Day surgery (SDC) | payer MEDICARE, MEDICAID, SELFPAY ==
[2024-12-18 10:02] VITALS: BMI 32.1
--- OUTSIDE RECORDS SUMMARY | 2024-12-22 01:12 | XMS_ITS | Encounter Summary ---
Author Organization [facility] Address [facility] [place] [address] Care Team Providers Care Die Hardener Name Role Phone Christian Cabezas MD Primary Care Provider Karen Chisholm Primary Care Provider [phone] Kenyatta Salamanca RN Unavailable [phone] Adam Ramirez MD Unavailable [phone] Edie Groves RN Unavailable [phone] Jenna Joyce MD Unavailable Encounter Details Date Type Department Care Team (Latest Contact Info) Description 03/27/2018 Abstract [facility] Jt Dos Santos MD Social [...] on filedocumented in this encounter Care Teams Die Hardener Relationship Specialty Start Date End Date Christian Cabezas MD PCP - General 10/22/16 07/21/18 Karen Reyna FNP [address] [place] [address] PCP - General Nurse Practitioner Family 07/22/18 Adam Ramirez MD [address] [place] [address] PCP - Hospice Attending 07/22/18 07/14/19 Kenyatta Salamanca RN [address] [place] [address] Diamond Cleaner (Ambulatory) REGISTERED NURSE 12/24/18 01/12/19 Edie Groves, RN [address] [address] Registered Nurse CARE MANAGEMENT 04/25/22 09/03/22 Jenna Joyce MD [address] [place] [address] Consulting Physician GENERAL SURGERY 07/25/23 07/25/24 documented as of this encounter
--- OUTSIDE RECORDS SUMMARY | 2024-12-22 01:12 | XMS_ITS | Encounter Summary ---
Author Organization [facility] Address [facility] [place] [address] Care Team Providers Care Rock Crusher Operator Name Role Phone Christian Cabezas MD Primary Care Provider Karen Chisholm Primary Care Provider [phone] Kenyatta Salamanca RN Unavailable [phone] Adam Ramirez MD Unavailable [phone] Edie Groves RN Unavailable [phone] Jenna Joyce MD Unavailable Encounter Details Date Type Department Care Team (Latest Contact Info) Description 03/21/2018 Abstract [facility] Jt Dos Santos [...] on filedocumented in this encounter Care Teams Rock Crusher Operator Relationship Specialty Start Date End Date Christian Cabezas MD PCP - General 10/22/16 07/21/18 Karen Reyna FNP [address] [place] [address] PCP - General Nurse Practitioner Family 07/22/18 Adam Ramirez MD [address] [place] [address] PCP - Hospice Attending 07/22/18 07/14/19 Kenyatta Salamanca RN [address] [place] [address] Instrumentation Fitter (Ambulatory) REGISTERED NURSE 12/24/18 01/12/19 Edie Groves, RN [address] [address] Registered Nurse CARE MANAGEMENT 04/25/22 09/03/22 Jenna Joyce MD [address] [place] [address] Consulting Physician GENERAL SURGERY 07/25/23 07/25/24 documented as of this encounter
--- OUTSIDE RECORDS SUMMARY | 2024-12-22 01:12 | XMS_ITS | Clinical Summary ---
Author Organization [facility] Address [address] [place] [address] Care Team Providers Care Golf Caddy Name Role Phone Jason Botello MD Primary Care Provider [phone] Source Comments [facility],non-owned Affiliates and Associated Physician Practices is amultiple site organization consisting of ambulatory clinics and hospital sitesin [place], [place], [place] and [place]. This disclosure is being madepursuant to the Care Everywhere program and may not contain all information available regarding this patient. Last updated 18.[facility] Allergies No known active allergies Medications * [...] patient's age to complete this topic Insurance [facility] MEDICAID - [place] Advance Directives Documents on File Type Date Recorded Patient Bowling Ball Grader And Marker Expl anation Adv Directive/Living Will/POA 03/14/2018 9:06 AM * Full Code (Latest Code Status on File) Date Activated Date Inactivated Comments 03/07/2018 6:12 PM 03/12/2018 12:24 PM Care Teams Golf Caddy Relationship Specialty Start Date End Date Jason Botello MD [address] [place] [phone] PCP - General 12/31/18
--- OUTSIDE RECORDS SUMMARY | 2024-12-22 01:12 | XMS_ITS | Encounter Summary ---
Author Organization [facility] Address Formerly [facility] [place] [address] Care Team Providers Care Sales Solutions Associate Name Role Phone Karen Reyna JEFFERY Primary Care Provider [phone] Reason for Visit * Reason Comments Image (SCAN) Encounter Details Date Type Department Care Team (Latest Contact Info) Description 12/09/2024 Scan HEALTH INFO SRVCS Scanned, Doc Med Group Image (SCAN) Social History Tobacco Use Types Packs/Day Years [...] Groves, RN documented as of this encounter Procedures Procedure Name Priority Date/Time Associated Diagnosis Comments IMAGE GENERIC 12/09/2024 documented in this encounter Results * IMAGE GENERIC (12/09/2024) Anatomical Region Laterality Modality Other 12/09/2024 us Doc Med Group Scanned SCANNING Final Resu lt documented in this encounter Visit Diagnoses Not on filedocumented in this encounter Additional Health Concerns Assessment Noted Time PHQ-9 Depression Total Score: 4 10/15/19 24 8:48 AM LIFE TESTER [employer] documented as of this encounter Care Teams Sales Solutions Associate Relationship Specialty Start Date End Date Karen Reyna FNP [address] [place] [address] [phone] PCP - General Nurse Practitioner Family 07/22/18 documented as of this encounter
--- OUTSIDE RECORDS SUMMARY | 2024-12-22 01:12 | XMS_ITS | Clinical Summary ---
Author Organization [facility] Address [address] [place] [address] Phone Care Team Providers Care Busgirl Name Role Phone Karen Reyna JEFFERY Primary Care Provider [phone] Allergies Active Allergy Reactions Criticality Noted Date [...] hy 05/20/2018 Atherosclerotic heart diseas e of [place] coronary artery without angina pectoris 05/20/2018 Closed [...] on file Legal Sex Female 8:02 AM [facility] Gender Identity Not on file Sexual Orientation [...] Vaccine (Season Ended) 2025 04/12/20 20 Insurance [facility] MEDICARE ADVANTAGE MEDICARE ADVANTAGE Care Teams Busgirl Relationship Specialty Start Date End Date Karen Reyna FNP [address] [place] [address] PCP - General Family Medicine 07/04/21
--- OUTSIDE RECORDS SUMMARY | 2024-12-22 01:12 | XMS_ITS | Encounter Summary ---
Author Organization [facility] Address [facility] [place] [address] Care Team Providers Care Case Maker Name Role Phone Karen Reyna Primary Care Provider [phone] Jenna Joyce MD Unavailable Encounter Details Date Type Department Care Team (Late st Contact Info) Description 03/09/2024 Retroficiency Message Enc [facility] Medical Group Multispecialty Care - [address], [address] [place] [address] Kris, [facility] Provider Lab Results Social History Tobacco Use [...] Total Score: 4 10/15/19 24 8:48 AM ANODISER documented as of this encounter Care Teams Case Maker Relationship Specialty Start Date End Date Karen Reyna FNP [address] [place] [id number] PCP - General Nurse Practitioner Family 07/22/18 Jenna Joyce MD [address] [place] [phone] Consulting Physician GENERAL SURGERY 07/25/23 07/25/24 documented as of this encounter
--- OUTSIDE RECORDS SUMMARY | 2024-12-22 01:12 | XMS_ITS | Clinical Summary ---
Author Organization [facility] Address [address] [place] [address] Care Team Providers Care Leach Cell Operator Name Role Phone Karen Reyna JEFFERY Primary Care Provider [phone] Allergies Active Allergy Reactions Criticality Noted Date [...] disease, with long-term current use of insulin ([facility]) 1 Units by Does not apply route 3 (three) times daily. 300 Container 2018 Active Additional Information Patient taking differently:1 Units Does not apply 3 times daily,Indications: diabetes, Reported on 07/28/2024 Alcohol Swabs (ALCOHOL PREP) 70 % PadsIndications: Type 2 diabetes 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, with long-term current use of insulin ([facility]) Use as directed three times daily 300 each 2018 Active Additional Information Patient taking differently:, Use as directed three times daily,Indications: Diabetes Mellitus, Reported on 07/28/2024 magnesium oxide (MAG-OX) 400 (240 Mg) MG tabletIndication s:08/23/22 per [facility] instructions Take 1 tablet (400 mg total) by mouth daily. Indications: 08/23/22 per [facility] instructions 2021 Active gabapentin (NEURONTIN) 100 MG capsuleIndicatio ns:Sciatica Take 1 capsule (100 mg total) by mouth every evening. 90 capsule 1 2021 Active hydrocortisone (CORTIZONE) 1 % creamIndications :08/23/22 per [facility] instructions Apply topically 2 (two) times daily as needed (itching). Indications: 08/23/22 per [facility] instructions Active Multiple Vitamins-Iron (MULTI-VITAMIN/I BASHIR) TabIndications:s uppliment Indications: suppliment Take one tablet daily 90 tablet 3 2022 Active Blood Glucose Monitoring Suppl (ONETOUCH VERIO) w/Device KitIndications:T ype 2 diabetes 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, with long-term current use of insulin ([facility]) Use to check blood glucose TID for diabetes 1 kit 2023 Active Glucose Blood (ACCU-CHEK GUIDE) test stripIndications :Type 2 diabetes 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, with long-term current use of insulin ([facility]) DIABETIC TESTING SUPPLY: USE THREE [...] disease, with long-term current use of insulin ([facility]) Use with insulin 4 times daily 400 each 2023 Active nitroglycerin (NITROSTAT) 0.4 MG SL tabletIndication s:Angina Pectoris Place 1 tablet (0.4 mg total) under the tongue every 5 (five) minutes as needed for Chest Pain. Indications: Angina Pectoris May repeat a total of 3 times 90 tablet 1 2023 Active OXYGENIndication s:Unilateral emphysema ([facility]) 2 L/min by Nasal route [...] disease, with long-term current use of insulin ([facility]),General ized anxiety disorder with panic attacks,Other hyperlipidemia,A nxiety,Essential hypertension,Dem entia ([facility]),Allerg ic,Unilateral emphysema ([facility]),Muscle spasms of both lower extremities,Naus ea,Chronic bilateral [...] 50 g 2 2023 Active Continuous Glucose Locks Inspector (FREESTYLE MARYCARMEN 3 READER) DeviceIndication s:Type 2 diabetes 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, with long-term current use of insulin ([facility]) One reader to use for CGM 1 each 2023 Active Continuous Glucose Sensor (FREESTYLE MARYCARMEN 3 SENSOR) MiscIndications: Type 2 diabetes 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, with long-term current use of insulin ([facility]) Apply one sensor every 14 [...] 12 HOURS 16 g 3 2024 Active Insulin Pen Needle (BD AUTOSHIELD DUO) 30G X 5 MM MiscIndications: Type 2 diabetes 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, with long-term current use of insulin ([facility]) USE WITH INSULIN 100 each 2 2024 Active insulin lispro, 1 Unit Dial, (HUMALOG KWIKPEN) 100 UNIT/ML injection (PEN)Indications :Type 2 diabetes 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, with long-term current use of insulin ([facility]) INJECT SQ PER SS THREE TIMES DAILY W/MEALS: 70-200=0U; 201-250=4U; 251-300=5U; 301-350=6U; 351-400=8U; >400 CALL MD 15 mL 2024 Active Easy Touch Lancets 30G MiscIndications: Type 2 diabetes 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, with long-term current use of insulin ([facility]) DIABETIC TESTING SUPPLY: USE THREE TIMES [...] disease, with long-term current use of insulin ([facility]) INJECT 50 UNITS SUBCUTANEOUSLY AT BEDTIME 15 mL 3 2024 Active Fluticasone-Umec lidin-Vilant (TRELEGY ELLIPTA) 100-62.5-25 MCG/ACT AEROSOL POWDER, BREATH ACTIVATEDIndicat ions:Unilateral emphysema ([facility]) INHALE 1 PUFF BY MOUTH DAILY 60 each 1 2024 Active ondansetron (ZOFRAN-ODT) 4 MG disintegrating tabletIndication s:04/26/22 per [facility] instructions Take 1 tablet (4 mg total) by mouth every 8 (eight) hours as needed for Nausea. Indications: 04/26/22 per [facility] instructions 20 tablet 2024 Active traMADol (ULTRAM) 50 MG tabletIndication s:Chronic Pain Indications: Chronic Pain TAKE 1 TABLET BY MOUTH EVERY 6 HOURS NEEDED FOR ACUTE PAIN 30 tablet 1 2024 Active pantoprazole EC (PROTONIX) 40 MG tabletIndication s:GERD (gastroesophagea l reflux disease) TAKE 1 TABLET BY MOUTH ONCE DAILY 30 tablet 2024 Active JANUVIA 100 MG tabletIndication s:Type 2 diabetes 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, with long-term current use of insulin ([facility]) TAKE 1 TABLET BY MOUTH ONCE DAILY 30 tablet 2024 Active furosemide (LASIX) 20 MG tabletIndication s:Essential hypertension TAKE 1 TABLET BY MOUTH ONCE DAILY 30 tablet 2024 Active carvedilol (COREG) 25 MG tabletIndication s:Essential hypertension TAKE 1 TABLET BY MOUTH TWICE DAILY 60 tablet 2024 Active atorvastatin (LIPITOR) 20 MG tabletIndication s:Other hyperlipidemia TAKE 1 TABLET BY MOUTH ONCE DAILY 30 tablet 2024 Active multiple vitamin (TAB-A-WILLOW) TabIndications:V itamin D deficiency TAKE 1 TABLET BY MOUTH ONCE DAILY 30 tablet 2024 Active busPIRone (BUSPAR) 10 MG tabletIndication s:Anxiety TAKE 2 TABLETS BY MOUTH THREE TIMES DAILY 180 tablet 2024 Active ASPIRIN LOW DOSE 81 MG tabletIndication s:Essential hypertension TAKE 1 TABLET BY MOUTH ONCE DAILY 30 tablet 2024 Active montelukast (SINGULAIR) 10 MG tabletIndication s:Cough TAKE 1 TABLET BY MOUTH EVERY EVENING 30 tablet 2024 Active glipiZIDE (GLUCOTROL) 10 MG tabletIndication s:Type 2 diabetes 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, with long-term current use of insulin ([facility]) TAKE 1 TABLET BY MOUTH ONCE DAILY 30 tablet 2024 Active PARoxetine (PAXIL) 20 MG tabletIndication s:Anxiety TAKE 1 TABLET BY MOUTH DAILY WITH 40MG=60MG DOSE 30 tablet 2024 Active PARoxetine (PAXIL) 40 MG tabletIndication s:Anxiety TAKE 1 TABLET BY MOUTH ONCE DAILY 30 tablet 2024 Active ALPRAZolam (XANAX) 0.5 MG tabletIndication s:Generalized anxiety disorder with panic attacks TAKE 1 TABLET BY MOUTH THREE TIMES DAILY TAKE 1 1/2 TABLETS BY MOUTH AT BEDTIME 135 tablet 2024 Active pantoprazole EC (PROTONIX) 40 MG tabletIndication s:GERD (gastroesophagea l reflux disease) TAKE 1 TABLET BY MOUTH ONCE DAILY 30 tablet 1 12/16 Discontinued SITagliptin (JANUVIA) 100 MG tabletIndication s:Type 2 diabetes 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, with long-term current use of insulin ([facility]) TAKE 1 TABLET BY MOUTH ONCE DAILY 30 tablet 1 12/16 Discontinued furosemide (LASIX) 20 MG tabletIndication s:Essential hypertension TAKE 1 TABLET BY MOUTH ONCE DAILY 30 tablet 1 12/16 Discontinued carvedilol (COREG) 25 MG tabletIndication s:Essential hypertension TAKE 1 TABLET BY MOUTH TWICE DAILY 60 tablet 1 12/16 Discontinued atorvastatin (LIPITOR) 20 MG tabletIndication s:Other hyperlipidemia TAKE 1 TABLET BY MOUTH ONCE DAILY 30 tablet 1 12/16 Discontinued multiple vitamin (TAB-A-WILLOW) TabIndications:V itamin D deficiency TAKE 1 TABLET BY MOUTH ONCE DAILY 30 tablet 1 12/16 Discontinued busPIRone (BUSPAR) 10 MG tabletIndication s:Anxiety TAKE 2 TABLETS BY MOUTH THREE TIMES DAILY 180 tablet 1 12/16 Discontinued montelukast (SINGULAIR) 10 MG tabletIndication s:Cough TAKE 1 TABLET BY MOUTH EVERY EVENING 30 tablet 1 12/16 Discontinued aspirin EC (ASPIRIN LOW DOSE) 81 MG tabletIndication s:Essential hypertension TAKE 1 TABLET BY MOUTH ONCE DAILY 30 tablet 1 12/16 Discontinued glipiZIDE (GLUCOTROL) 10 MG tabletIndication s:Type 2 diabetes 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, with long-term current use of insulin ([facility]) TAKE 1 TABLET BY MOUTH ONCE DAILY 30 tablet 1 12/16 Discontinued PARoxetine (PAXIL) 20 MG tabletIndication s:Anxiety TAKE 1 TABLET BY MOUTH DAILY WITH 40MG=60MG DOSE 30 tablet 1 12/16 Discontinued PARoxetine (PAXIL) 40 MG tabletIndication s:Anxiety TAKE 1 TABLET BY MOUTH ONCE DAILY 30 tablet 1 12/16 Discontinued ALPRAZolam (XANAX) 0.5 MG tabletIndication s:Generalized anxiety disorder with panic attacks TAKE 1 TABLET BY MOUTH THREE TIMES DAILY TAKE 1 1/2 TABLETS BY MOUTH AT BEDTIME 135 tablet 12/18 Discontinued Active Problems Problem Noted Date Diagnosed Date Post-menopausal 08/03/2024 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) 04/23/2018 CAD (coronary artery disease) 04/23/2018 Dementia 04/23/2018 Altered mental status 04/23/2018 Status post kyphoplasty 03/25/2018 Closed T10 spinal fracture ([facility]) TIA (transient ischemic attack) 03/04/2018 Chest mass 02/27/2018 Compression fracture of thoracic vertebra ([facility]) 02/20/2018 Confusion 02/13/2018 Thoracic spine fracture ([facility]) 2017 Cough 01/28/2018 Serum creatinine raised 10/29/2017 Hiatal hernia 12/18/2016 Overview (07/04/2018): Overview: Gastroesophageal reflux disease with large hiatal hernia with evidence of partial organoaxial volvulus. Fracture of lumbar vertebra ([facility]) Frequent falls 09/13/2016 Anxiety 05/17/2015 CHF (congestive heart failure) (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) 05/20/2018 05/05/2024 Nail overgrowth 05/05/2018 08/03/2024 UTI (urinary tract infection) 04/23/2018 05/05/2024 Acute renal failure 04/22/2018 05/05/20 24 Dysuria 04/22/2018 12/23/2018 Hallucinations 04/22/2018 05/05/2024 Shortness of breath 02/13/2018 05/05/20 History of UTI 10/29/2017 05/05/2024 Chronic obstructive pulmonar y disease ([facility]) 05/17/2015 08/03/2024 Encounters Date Type Department Care Team Description 12/09/2024 Scan [employer] INFO SRVCS Scanned, Doc Med Group Image (SCAN) 11/25/2024 Scan MG HEALTH INFO SRVCS Scanned, Doc Med Group 11/23/2024 Telephone [facility] Internal [address] [address] Karen Reyna FNP Referral 11/20/2024 Telephone [facility] Internal [address] [address] Karen Reyna FNP Information 11/14/2024 Scan MG HEALTH INFO SRVCS Scanned, Doc Med Group 11/03/2024 Scan MG HEALTH INFO SRVCS Scanned, Doc Med Group Lab (SCAN); CT (SCAN) 10/05/2024 Scan MG HEALTH INFO SRVCS Scanned, Doc Med Group 09/24/2024 Telephone [facility] Internal [address] [address] Karen Reyna, JEFFERY Refill Request from Last 3 Months Immunizations Immunization Administration [...] Comments Blood Pressure 116/60 07/28/2024 11:20 AM PATCHER WOOD WELDER Pulse 74 07/28/2024 11:20 AM PATCHER WOOD WELDER Temperature 36.8 C (98.3 F) 07/28/2024 11:20 AM PATCHER WOOD WELDER Respiratory Rate 14 07/28/2024 11:2 0 AM PATCHER WOOD WELDER Oxygen Saturation 97% 07/28/2024 11: 20 AM PATCHER WOOD WELDER Inhaled Oxygen Concentration - - Weight 82.5 kg (181 lb 12.8 oz) 024 11:20 AM PATCHER WOOD WELDER Height 160 cm (5' 3 ) 07/28/2024 11:20 AM PATCHER WOOD WELDER Body Mass Index 32.2 07/28/2024 11:20 AM PATCHER WOOD WELDER Plan of Treatment Health Maintenance Due Date Last Done Comments Kidney Health Evaluation 1945 Hepatitis C 1963 Annual Medicare Wellness Visit 10/14/2011 Dexa Scan (General) 10/14/2011 Diabetes: Retinopathy Eye Exam 09/08/2021 09/08/2019, 01/07/2018 PHQ-2 (Physician [place]) 08/12/2024 10/15/2023 ASCVD LDL 10/14/2024 10/15/2023, 0 08/2020, 05/11/2020, Additional history exists Lipid Panel 10/14/2024 10/15/2023, 100 08/2020, 05/11/2020 Hemoglobin A1C 11/02/2024 05/05/2024, 030 12/2023, 01/08/2023, Additional history exists COVID-19 Vaccine () 07/28/2025 01/26/2022, 10/12/2020, 09/26/2020 Postponed from 04/12/2024 (Patient [...] track( 10:46 AM CDT) No Edie Groves, BLADE Establish Plan for Symptom Monitoring Lifestyle On track( 022 10:46 AM CDT) No Edie Groves, citizenship instructor Procedure Name Priority Date/Time Associated Diagnosis Comments IMAGE GENERIC 12/09/2024 CT GENERIC 11/03/2024 OUTSIDE LAB (SCAN ORDER) 11/03/2024 OUTSIDE LAB (SCAN ORDER) 11/03/2024 OUTSIDE LAB (SCAN ORDER) 11/03/2024 OUTSIDE LAB (SCAN ORDER) 11/03/2024 HEMOGLOBIN, GLYCOSYLATED Routine 05/05/2024 Type 2 diabetes 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, with long-term current use of insulin LIPID PANEL Routine 10/15/2023 9:55 AM PATCHER WOOD WELDER Primary hypertension Other hyperlipidemia COLONOSCOPY Routine 07/25/2023 7:17 AM PATCHER WOOD WELDER DILATED EYE EXAM (SCAN) Routine 09/08/2019 from Last 3 Months or Most Recently Relevant to Health Maintenance Results * IMAGE GENERIC (12/09/2024) Anatomical Region Laterality Modality Other 12/09/2024 us Doc Med Group Scanned SCANNING Final Resu lt * CT GENERIC (11/03/2024) Anatomical Region Laterality Modality Other 11/03/2024 Doc Med Group Scanned SCANNING Final Resu lt * OUTSIDE LAB (SCAN ORDER) (11/03/2024) Only the most recent of4 resultswithin the time period is included. 11/03/2024 us Doc Med Group Scanned SCANNING Final Resu lt * (ABNORMAL) A1C (BACK OFFICE) (05/05/2024) HGB A1C 7.4(A) % [facility] 05/05/2024 Karen Reyna [facility] Final Result [facility] [address] [place] [address], [place] * (ABNORMAL) LIPID PANEL (10/15/2023 9:55 AM PATCHER WOOD WELDER) CHOLESTEROL 170 <200 MG/DL 10/15/2023 3:36 PM PATCHER WOOD WELDER [facility] TRIGLYCERIDES 143 <150 MG/DL 10/15/2023 3:36 PM PATCHER WOOD WELDER [facility] HDL 49 >40 MG/DL 10/15/2023 3:36 PM PATCHER WOOD WELDER [facility] LDL-C 92 <100 MG/DL 10/15/2023 3:36 PM PATCHER WOOD WELDER [facility] VLDL CALCULATION 29(H) 5 - 28 MG/DL 10/15/2023 3:36 PM [facility] CHOL/HDL RATIO 3.5 0.0 - 4.0 10/15/2023 3:36 PM PATCHER WOOD WELDER -[facility] [place] LDL/HDL 1.9 0.41 - 2.13 10/15/2023 3:36 PM PATCHER WOOD WELDER -[facility] NON HDL CHOLESTEROL 121 <140 MG/DL 10/15/2023 3:36 PM PATCHER WOOD WELDER -[facility] [place] 10/15/2023 9:55 AM PATCHER WOOD WELDER us Karen Reyna [facility] Final Result -[facility] [address] [facility] [place] [address], * DIABETIC RETINOPATHY EXAM (09/08/2019) us Documents Scanned SCANNING Final Result [facility] ONBASE from Last 3 Months or Most Recently Relevant to Health Maintenance Insurance MEDICAID UHC Care Teams Leach Cell Operator Relationship Specialty Start Date End Date Karen Reyna FNP [address] [place] [phone] PCP - General Nurse Practitioner Family 07/22/18
--- OUTSIDE RECORDS SUMMARY | 2024-12-22 01:12 | XMS_ITS | Encounter Summary ---
Author Organization [facility] Address [facility] [place] [address] Care Team Providers Care Consumer Sales Representative Name Role Phone Christian Cabezas MD Primary Care Provider Karen Chihsolm Primary Care Provider [phone] Kenyatta Salamanca RN Unavailable [phone] Adam Ramirez MD Unavailable [phone] Edie Groves RN Unavailable [phone] Jenna Joyce MD Unavailable Encounter Details Date Type Department Care Team (Latest Contact Info) Description 04/07/2018 Abstract [facility] Medical Group [facility] [...] on filedocumented in this encounter Care Teams Consumer Sales Representative Relationship Specialty Start Date End Date Christian Cabezas MD PCP - General 10/22/16 07/21/18 Karen Reyna FNP [address] [place] [address] PCP - General Nurse Practitioner Family 07/22/18 Adam Ramirez MD [address] [place] [address] PCP - Hospice Attending 07/22/18 07/14/19 Kenyatta Salamanca RN [address] [place] [address] [employer] Business Representative (Ambulatory) REGISTERED NURSE 12/24/18 01/12/19 Edie Groves, RN [address] [address] Registered Nurse CARE MANAGEMENT 04/25/22 09/03/22 Jenna Joyce MD [address] [place] [address] Consulting Physician GENERAL SURGERY 07/25/23 07/25/24 documented as of this encounter
--- OUTSIDE RECORDS SUMMARY | 2024-12-22 01:12 | XMS_ITS | Encounter Summary ---
Author Organization [facility] Address [facility] [place] [address] Care Team Providers Care Jailor Name Role Phone Christian Cabezas MD Primary Care Provider Karen Chisholm Primary Care Provider [phone] Kenyatta Salamanca RN Unavailable [phone] Adam Ramirez MD Unavailable [phone] Edie Groves RN Unavailable [phone] Jenna Joyce MD Unavailable Encounter Details Date Type Department Care Team (Latest Contact Info) Description 04/21/2018 Abstract [facility] Medical Group [facility] [...] on filedocumented in this encounter Care Teams Jailor Relationship Specialty Start Date End Date Christian Cabezas MD PCP - General 10/22/16 07/21/18 Karen Reyna FNP [address] [place] [address] PCP - General Nurse Practitioner Family 07/22/18 Adam Ramirez MD [address] [place] [address] PCP - Hospice Attending 07/22/18 07/14/19 Kenyatta Salamanca RN [address] [place] [address] Therapist (Ambulatory) REGISTERED NURSE 12/24/18 01/12/19 Edie Groves, RN [address] [address] Registered Nurse CARE MANAGEMENT 04/25/22 09/03/22 Jenna Joyce MD [address] [place] [address] Consulting Physician GENERAL SURGERY 07/25/23 07/25/24 documented as of this encounter
--- OUTSIDE RECORDS SUMMARY | 2024-12-22 01:12 | XMS_ITS | Encounter Summary ---
Author Organization [facility] - [facility] Address [address] [place] [address] Care Team Providers Care Mess Cook Name Role Phone Karen Reyna Primary Care Provider [phone] Jenna Joyce MD Unavailable Encounter Details Date Type Department Care Team (Late st Contact Info) Description 02/06/2023 MyChart Message Enc [facility] - [facility] [address], [place] [address] [facility] Provider Air Quality Message Social History Tobacco [...] documented as of this encounter Care Teams Mess Cook Relationship Specialty Start Date End Date Karen Reyna FNP [address] [place] [address] PCP - General Nurse Practitioner Family 07/22/18 Jenna Joyce MD [address] [place] [phone] Consulting Physician GENERAL SURGERY 07/25/23 07/25/24 documented as of this encounter
--- OUTSIDE RECORDS SUMMARY | 2024-12-22 01:12 | XMS_ITS | Encounter Summary ---
Author Organization [facility] - [facility] Address [facility] [place] [address] Care Team Providers Care Shoe Planner Name Role Phone Karen Reyna Primary Care Provider [phone] Jenna Joyce MD Unavailable Encounter Details Date Type Department Care Team (Late st Contact Info) Description 03/24/2024 [employer] Message Enc [facility] Multispecialty Care - [address], [address] [place] [address] Kris, [facility] Provider EMG result Social [...] Total Score: 4 10/15/19 24 8:48 AM OFFICE TECHNOLOGY PROFESSOR documented as of this encounter Care Teams Shoe Planner Relationship Specialty Start Date End Date Karen Reyna FNP [address] [place] [address] PCP - General Nurse Practitioner Family 07/22/18 Jenna Joyce MD [address] [place] [address] Consulting Physician GENERAL SURGERY 07/25/23 07/25/24 documented as of this encounter
--- OUTSIDE RECORDS SUMMARY | 2024-12-22 01:12 | XMS_ITS | Encounter Summary ---
Author Organization [facility] - [facility] Address [facility] [place] [address] Care Team Providers Care Mat Maker Name Role Phone Karen Reyna Primary Care Provider [phone] Jenna Joyce MD Unavailable Encounter Details Date Type Department Care Team (Late st Contact Info) Description 04/08/2024 [employer] Message Enc [facility] Multispecialty Care - [address], [address] [place] [address] Kris, [facility] Provider MRI results Social History Tobacco Use [...] Total Score: 4 10/15/19 24 8:48 AM BOTTLE BLOWING MACHINE TENDER documented as of this encounter Care Teams Mat Maker Relationship Specialty Start Date End Date Karen Reyna FNP [address] [place] [address] PCP - General Nurse Practitioner Family 07/22/18 Jenna Joyce MD [address] [place] [address] Consulting Physician GENERAL SURGERY 07/25/23 07/25/24 documented as of this encounter
--- OUTSIDE RECORDS SUMMARY | 2024-12-22 01:12 | XMS_ITS | Encounter Summary ---
Author Organization [facility] Address [address] [place] [address] Care Team Providers Care Assistant Finance Manager Name Role Phone Karen Reyna JEFFERY Primary Care Provider [phone] Encounter Details Date Type Department Care Team (Latest Contact Info) Description 07/31/2024 [employer] Message Enc [facility] [place] [address] [phone] Kris, [facility] Provider PAIN CLINIC REFERRAL Social History Tobacco [...] Total Score: 4 10/15/19 24 8:48 AM WATER JET OPERATOR documented as of this encounter Care Teams Assistant Finance Manager Relationship Specialty Start Date End Date Karen Reyna FNP [address] [place] [address] [phone] PCP - General Nurse Practitioner Family 07/22/18 documented as of this encounter
--- OUTSIDE RECORDS SUMMARY | 2024-12-22 01:12 | XMS_ITS | Encounter Summary ---
Author Organization [facility] Address [facility] [place] [address] Care Team Providers Care Ivf Embryologist Name Role Phone Karen Reyna Primary Care Provider [phone] Edie Groves RN Unavailable [phone] Jenna Joyce MD Unavailable Encounter Details Date Type Department Care Team (Late st Contact Info) Description 07/26/2022 [employer] Message Enc [facility] [address] [address] Kris, [facility] Provider Stress test Social History Tobacco Use [...] Coronavirus/COVID-19? No / Unsure 07/26/2022 9:56 AM DEHORNER documented as of this encounter Plan of [...] documented as of this encounter Care Teams Ivf Embryologist Relationship Specialty Start Date End Date Karen Reyna FNP [address] [place] [phone] PCP - General Nurse Practitioner Family 07/22/18 Edie Groves, RN [address] [address] Registered Nurse CARE MANAGEMENT 04/25/22 09/03/22 Jenna Joyce MD [address] [place] [address] Consulting Physician GENERAL SURGERY 07/25/23 07/25/24 documented as of this encounter
[2024-12-22 08:22] VITALS: BP 152/89; PULSE 80; RESP 18; TEMP 36; O2SAT 99; BMI 30.2
[2024-12-22] MEDS: LACTATED RINGERS 1,000 ML 150 ML IV CONT (08:37)
[2024-12-22 08:40] LABS: Glucose Point of Care 200 mg/dl (65-105)
--- NOTE | 2024-12-22 09:04 | WPDANESEPPF ---
Anes - Initial Pre Proc Eval Procedure: Operation Date: 12/22/24 09:00 Proposed Procedures p Colonoscopy - Kunal Myers MD Date/Time: 12/22/24 09:04 Surgeon: Kunal Myers MD Pre Op Diagnosis: Other specified symptoms and signs involving the d Patient Data Age: 79 Gender: F Height: 1.63 m Weight: 79.8 kg Last Vital Signs Temp 36.0 C L 12/22/24 08:22 Pulse 80 12/22/24 08:22 Resp 18 12/22/24 08:22 BP 152/89 H 12/22/24 08:22 Pulse Ox 99 12/22/24 08:22 O2 Del Method Room Air 12/22/24 08:22 Allergies Allergy/AdvReac Type Severity Reaction Status Date / Time meperidine AdvReac Mild Diarrhea Verified 12/22/24 08:18 Home Medications ?Medication ?Instructions ?Recorded ?Confirmed ?Type acetaminophen 325 mg capsule 650 mg PO Q6H PRN Pain (Scale 10/14/19 12/22/24 History Score 1-3) alprazolam 0.5 mg tablet 0.75 mg PO HS 10/14/19 12/22/24 History aspirin 81 mg tablet,delayed 81 mg PO DAILY 10/14/19 12/22/24 History release (Adult Low Dose Aspirin) carvedilol 25 mg tablet (Coreg) 25 mg PO BID 10/14/19 12/22/24 History donepezil 5 mg tablet 10 mg PO DAILY 10/14/19 12/22/24 History furosemide 20 mg tablet 20 mg PO QAM 10/14/19 12/22/24 History glucose 4 gram chewable tablet 4 gm PO Q15M PRN Hypoglycemia 10/14/19 12/22/24 History (Dex4 Glucose) ipratropium 0.5 mg-albuterol 3 mg 3 ml inhalation Q6H PRN Dyspnea 10/14/19 12/22/24 History (2.5 mg base)/3 mL nebulization soln methocarbamol 750 mg tablet 750 mg PO TID PRN Muscle Spasm 10/14/19 12/22/24 History montelukast 10 mg tablet 10 mg PO HS 10/14/19 12/22/24 History multivitamin 1 tablet PO DAILY 10/14/19 12/22/24 History pantoprazole 40 mg tablet,delayed 40 mg PO DAILY 10/14/19 12/22/24 History release paroxetine HCl 40 mg tablet 60 mg PO DAILY 10/14/19 12/22/24 History sitagliptin phosphate 100 mg 100 mg PO QAM 10/14/19 12/22/24 History tablet (Januvia) vitamin B complex (B 1 tablet PO DAILY 10/14/19 12/22/24 History Complex-Vitamin B12 tablet) polyethylene glycol 3350 17 17 gm PO BID PRN Constipation 09/18/21 12/22/24 History gram/dose oral powder (Miralax) atorvastatin 20 mg tablet 20 mg PO HS 04/23/22 12/22/24 History glipizide 10 mg tablet 10 mg PO DAILY 04/23/22 12/22/24 History albuterol sulfate 90 mcg/actuation 2 inhalation inhalation 4-6XD PRN 08/23/22 12/22/24 Rx aerosol inhaler Shortness Of Breath Or Wheezing #8.5 grams fluticasone fur. 100 mcg-umeclid 1 inh inhalation DAILY #60 ea 08/23/22 12/22/24 Rx 62.5 mcg-vilant 25 mcg inhalat.powder (Trelegy Ellipta) fluticasone propionate 50 1 spray intranasal Q12HR #16 grams 08/23/22 12/22/24 Rx mcg/actuation nasal spray,suspension guaifenesin 600 mg tablet, 600 mg PO Q12HR #14 tabs 08/23/22 12/22/24 Rx extended release 12 hr (Mucus Relief ER) hydrocortisone 1 % topical cream 1 applic topical Q12HR PRN itching 08/23/22 12/22/24 Rx #28.35 grams insulin aspart U-100 100 unit/mL 4 - 8 unit subcut TIDWM #10 mL 08/23/22 12/22/24 Rx subcutaneous solution (Novolog U-100 Insulin aspart) lanolin alcohols-mineral 1 applic topical DAILY #113 grams 08/23/22 12/22/24 Rx oil-w.petrolatum-ceresin topical cream (Minerin Creme topical) peg 039-gzfhyyajotqt-xlnckuov 1 1 drp EACH EYE QID PRN Dry Eye(S) 08/23/22 12/22/24 Rx %-0.2 %-0.2 % eye drops #15 mL (Artificial Tears (pv205-zeophikjg-pkekdwnc)) lidocaine 5 % topical cream 1 applic topical BID PRN pain 7 05/21/23 12/22/24 Rx days #28.35 grams Robitussin DM Max 10 ml PO Q4H PRN Cough 07/02/24 12/22/24 History acetaminophen 500 mg capsule 500 mg PO QID PRN Pain (Scale 07/02/24 12/22/24 History Score 4-6) alprazolam 0.5 mg tablet 1 mg PO BID 07/02/24 12/22/24 History biotin 2,500 mcg PO DAILY 07/02/24 12/22/24 History buspirone 10 mg tablet 20 mg PO TID 07/02/24 12/22/24 History multivitamin (Daily-Urbano tablet) 1 tablet PO DAILY 07/02/24 12/22/24 History tramadol 50 mg tablet 50 mg PO Q6H PRN Pain (Scale Score 07/02/24 12/22/24 History 4-6) insulin glargine 100 unit/mL 60 unit (0.6 mL) subcut HS #10 mL 07/07/24 12/22/24 Rx subcutaneous solution (Lantus U-100 Insulin) loratadine 10 mg tablet 10 mg PO QAM #30 tabs 07/07/24 12/22/24 Rx diclofenac sodium 75 mg 75 mg PO BID #60 tabs 08/13/24 12/22/24 Rx tablet,delayed release metronidazole 500 mg tablet 500 mg PO Q12H 7 days #14 tabs 11/03/24 12/22/24 Rx ondansetron 4 mg disintegrating 4 mg PO Q8H PRN nausea and 11/03/24 12/22/24 Rx tablet vomiting #14 tabs Laboratory Tests 12/22/24 08:27 POC Capillary Glucose 200 H mg/dl (65-105) Patient hx anesthesia problems: none Family hx anesthesia problems: none Results Review: All pre-operative results and documents have been reviewed as part of the pre-operative evaluation. [facility] Past Medical History Medical History Colon polyps Tenesmus (rectal) History of diverticulitis Rectal bleeding Diarrhea Abdominal bloating COPD exacerbation Asthma-COPD overlap syndrome Chronic respiratory failure with hypoxia, on home oxygen therapy Chronic kidney disease, stage 3 Insulin dependent type 2 diabetes mellitus Dyslipidemia Hypertension Gastroesophageal reflux disease Congestive heart failure Cerebrovascular accident Coronary artery disease Anemia Anxiety Depression Arthritis Colitis Hiatal hernia Gastric ulcer Pneumonia Asthma Myocardial infarction Surgical History Surgical History History of sinus surgery History of bladder suspension procedure History of tubal ligation History of hysterectomy History of coronary artery stent placement History of dilation and curettage History of cardiac catheterization History of colonoscopy with polypectomy History of appendectomy Family History Family History Mother Family history of diabetes mellitus in first degree relative Family history of primary malignant neoplasm of liver Family history of heart disease in male family member before age 55 Family history of hearing loss Family history of liver disease Diabetes mellitus Cerebrovascular accident Family history of pancreatic cancer Hypertension Father Family history of emphysema Sibling Diabetes mellitus Other Depression Family history of alcoholism Family history of allergic disorder Family history of arthritis Family history of cardiovascular disease Family history of coronary artery disease Family history of malignant neoplasm Family history of mental disorder Family history of osteoporosis Social History Social History Social History: Healthcare power of senior trial attorney: Alistair Martínez. Code status: Full code. Smoking status: Never smoker Second hand tobacco smoke exposure: Yes Alcohol intake: never Alcohol use details: History of alcohol abuse, none since 2014. Substance use: never Do You Feel Safe in your Home?: Yes Lack of Transportation: No Lack of Food: Never True Current Housing: I Have Housing Concerned About Future Housing: No Difficulty Paying Gas/Electric Bills: No Difficulty Paying for Meds: No Currently Unemployed: No Education: High School Diploma/GED Difficulty w/ Childcare or Family Care: No Living arrangements: assisted living Additional living arrangements comments: Assisted living at [facility]. Occupation/Education: retired Gender identity (if verbalized by the patient): Female Spiritual care concerns: No Anes - Eval Final PreProcedure Day of Procedure 12/22/24 09:04 Patient weight: obese Heart: regular rate and rhythm Lungs: decreased breath sounds Airway: Mallampati scale class III Neurological: alert and oriented Last oral intake: >/= 8 hours ASA classification: IV Emergent: no Anesthetic plan: proceed Anesthesia type and monitoring: general GIVS and standard monitoring Results Review: All pre-operative results and documents have been reviewed as part of the pre-operative evaluation. Informed Consent: The patient's anesthetic plan and its attendant risks and benefits were discussed with the patient/family/POA. Questions were solicited and answers provided to the satisfaction of the patient/family/POA.
--- NOTE | 2024-12-22 09:06 | WPDHPUPDATE1 ---
History and Physical Update Update Date/Time: 12/22/24 09:06 History and Physical has been reviewed, including an updated exam of the patient. There are NO changes in the patient's condition. Risks, benefits, and alternatives have been discussed and questions answered. Patient agrees to proceed with procedure.
[2024-12-22 09:24] VITALS: BP 132/64; PULSE 74; RESP 26; O2SAT 99
[2024-12-22 09:34] VITALS: BP 140/64; PULSE 74; RESP 24; O2SAT 96
[2024-12-22 09:44] VITALS: BP 159/74; PULSE 72; RESP 24; O2SAT 98
[2024-12-22 10:12] LABS: Glucose Point of Care 196 mg/dl (65-105)
== END 2024-12-22 10:06 | disposition home or self-care (01) ==
PROVIDERS: PCP Nurse Practitioner Family; Referring Provider Nurse Practitioner Family; Visit Provider Internal Medicine Gastroenterology
PROC: 0DJD8ZZ Inspection of Lower Intestinal Tract, Via Natural or Artificial Opening Endoscopic (ICD-10-PCS; CPT 45378; principal; 2024-12-22 09:00)
DX: K62.89 Other specified diseases of anus and rectum (principal); K52.9 Noninfective gastroenteritis and colitis, unspecified; K57.30 Diverticulosis of large intestine without perforation or abscess without bleeding; Z87.19 Personal history of other diseases of the digestive system; I13.0 Hypertensive heart and chronic kidney disease with heart failure and stage 1 through stage 4 chronic kidney disease, or unspecified chronic kidney disease; I50.9 Heart failure, unspecified; E11.22 Type 2 diabetes mellitus with diabetic chronic kidney disease; N18.30 Chronic kidney disease, stage 3 unspecified
CPT/HCPCS: 45380; 82948; 88305; J2003; J2704; J7120

== ENCOUNTER 2025-01-05 11:04 | Inpatient (IN) | payer MEDICARE, MEDICAID, SELFPAY ==
[2025-01-05] VITALS (8 sets, daily range): BP systolic 140–183; BP diastolic 60–115; PULSE 74–93; RESP 13–22; TEMP 36.2–37.1; O2SAT 95–99; BMI 31.8
--- NOTE | ~2025-01-05 | MR_ITS ---
EXAMINATION: MR MRCP wo/w con/w 3D wo ind DATE: 01/08/2025 16:11 INDICATION: Pancreatic mass TECHNIQUE: Magnetic resonance imaging (MRI) of the abdomen was performed without and with 17 mL Multi nate intravenous contrast. Sequences included coronal T2-weighted SS-FSE, coronal T2-weighted FS SS- FSE, coronal T2-weighted FS FIESTA, axial T2-weighted FS FIESTA, axial T2-weighted FIESTA, sagittal T 2-weighted SS-FSE, axial T1-weighted dual-echo FSPGR, axial T2-weighted SS-FSE, axial T1-weighted LAV A, axial T2-weighted STIR FSE. Thick-slab T2-weighted FRFSE-XL images were obtained for magnetic reso nance cholangiopancreatography (MRCP). Rotating maximum intensity projection 3-D reconstructions of t he volumetric data were created by the technologist. Postcontrast sequences included a time course of axial T1-weighted LAVA. COMPARISON: None. FINDINGS: ABDOMEN MRI: Mild discoid atelectasis in the right lower lobe. Heart size is normal. No pericardial or pleural eff usion. Small sliding-type hiatal hernia. Magnetic field artifact about the proximal stomach correspon ding to a suture line in prior CT potentially representing change of prior Kwesi fundoplication.. Li [place], gallbladder, spleen and bilateral adrenal glands are normal. 5 mm nonenhancing T2 hyperintense c ystic lesion at the body the otherwise normal pancreas. Bilateral T2 hyperintense nonenhancing renal cysts, the largest on the left measuring 1.8 cm. There is small amount of dependently layering T1 hyp erintense, T2 hyperintense blood versus proteinaceous fluid in the 1 cm complex cyst in the right kid pablo. Tiny fat-containing umbilical hernia. Numerous diverticula along the descending and sigmoid colo n without adjacent comparison to suggest diverticulitis. No pathologically enlarged abdominal lymphad enopathy. Chronic T10 and L2 compression fractures. T1 hyperintense fat saturating hemangioma at L4. Severe disc height loss with fibrofatty and fibrovascular degenerative endplate changes at L5-S1 and at the right side of L4-L5. Mild spondylosis and more cephalad lumbar and lower thoracic spine. ABDOMEN MRCP: Common bile duct measures up to 6 7 7 mm which is within normal limits for age. No intrahepatic bilia ry ductal dilation. No choledocholithiasis, strictures or other mucosal irregularities along the comm on bile duct. Main pancreatic duct is normal. IMPRESSION: 1. 6 mm simple appearing nonenhancing cystic lesion at the body the pancreas. Recommend 2 year follow -up pre and postcontrast MRI. 2. Small sliding-type hiatal hernia with postoperative changes suggesting possible prior Kwesi fundo plication. 3. Diverticulosis. Reviewed, dictated and finalized at location A. IMPRESSION: 1. 6 mm simple appearing nonenhancing cystic lesion at the body the pancreas. R ecommend 2 year follow-up pre and postcontrast MRI. 2. Small sliding-type hiatal hernia with postoperative changes suggesting possi ble prior Kwesi fundoplication. 3. Diverticulosis.
--- NOTE | ~2025-01-05 | MR_ITS ---
EXAMINATION: MR pelvis wo/w con DATE: 01/08/2025 16:11 INDICATION: Ovarian mass TECHNIQUE: Magnetic resonance imaging (MRI) of the pelvis was performed without and with 17 mL ProHan ce intravenous contrast. Full-field sequences of the pelvis included axial and coronal T2-weighted SS FSE, coronal 2D FIESTA, axial T1-weighted FSPGR, axial dual-echo T1-weighted FSPGR and axial T1 weig hted LAVA. Postcontrast sequences included a time course axial T1-weighted LAVA with full-field of vi ew of the pelvis. COMPARISON: CT dated 01/05/2025 FINDINGS: Bladder is normal. Status post hysterectomy. Diverticulosis along the sigmoid colon. There is some st randing around the junction of the descending and sigmoid colon consistent with diverticulitis. 1.6 c m nonenhancing T2 hyperintense right adnexal cyst along side the otherwise normal appearing right ova ry. The left ovary is also normal. No free fluid in the pelvis. Severe lower lumbar spondylosis. T1 h yperintense fat saturating hemangioma at L4. IMPRESSION: 1. 1.6 cm right adnexal cyst. Otherwise normal bilateral ovaries. 2. Diverticulitis at the junction of the descending and sigmoid colon. Reviewed, dictated and finalized at location A.
--- NOTE | ~2025-01-05 | CT_ITS ---
History: Hallucinations PROCEDURE: CT head without contrast. COMPARISON: 07/03/2024 TECHNIQUE: Axial imaging of the head performed from the skull base to the vertex without IV contrast. Sagittal a nd coronal reformations obtained. DLP: 605 mGy-cm FINDINGS: The ventricles are enlarged. The dilatation of the ventricles is proportional to the degree of sulcal prominence, not uncommon in the senescent brain. Decreased attenuation is identified within the periventricular white matter, likely secondary to micr ovascular ischemic disease, in a patient of this age. There is no mass, mass effect or midline shift. There is no abnormal extra-axial fluid collection or intracranial hemorrhage. Visualized paranasal sinuses are clear. The mastoid air cells are well aerated. No acute displaced fractures within the overlying cranium. Impression: No acute intracranial hemorrhage or suspicious mass effect. Reviewed, dictated and finalized at location A. Impression: No acute intracranial hemorrhage or suspicious mass effect.
--- NOTE | ~2025-01-05 | XR_ITS ---
CHEST RADIOGRAPH CLINICAL HISTORY: AMS, WEAKNESS . COMPARISON: 07/07/2024 TECHNIQUE: Single portable view of the chest. FINDINGS The cardiomediastinal silhouette is unremarkable. Interstitial thickening detected bilaterally, chronic in appearance. The lungs are otherwise clear. IMPRESSION: No focal infiltrate or effusion. Reviewed, dictated and finalized at location A.
--- NOTE | ~2025-01-05 | XR_ITS ---
XR hip BI 2V w AP pelvis 01/13/2025 09:37 Indication: Status post fall. Hip pain. Procedure: AP pelvis and 2 views each hip Comparison: 03/14/2024 Findings: Pelvic rings intact. Sacral foramen are symmetric. No fracture or traumatic malalignment. T here is lower lumbar spondylosis. Impression: 1: No acute fracture. Reviewed, dictated and finalized at location A. Impression: 1: No acute fracture.
--- NOTE | ~2025-01-05 | CT_ITS ---
CLINICAL INDICATION: Lower back pain COMPARISON: Examination was compared with multiple prior studies, performed most recently on and dating back to 09/10/2013 TECHNIQUE: Multiple contiguous axial images of the abdomen and pelvis were performed following the ad ministration of with 100 mL Omnipaque-350 intravenous contrast The dose-length product (DLP) was 1049.02 mGy-cm. Automated exposure control and iterative reconstruction technique were employed. FINDINGS/OBSERVATIONS: Visualized lower thorax: The bilateral lung bases are clear. The heart is of normal size, without pericardial effusion. Postoperative change within the distal esophagus and upper stomach. Large hiatal hernia is redemonstrated, with the staple line extending above the diaphragmatic hiatus. Liver: The liver demonstrates homogeneous enhancement and is not enlarged. Gallbladder and biliary system: The gallbladder is distended, and otherwise unremarkable. Pancreas: Atrophy of the tail of the pancreas is identified. 6.3 mm focus of decreased attenuation within the mid body of the pancreas, increased in size from 11/11 when it measured 5 mm and 09/28/2022 when it measured 4.1 mm, and 09/10/2013 when it measured 3. 8 mm. Follow-up with contrast-enhanced MRI/MRCP with pancreatic mass protocol is recommended. Spleen: The spleen enhances homogeneously and is not enlarged. Kidneys: The bilateral nodular kidneys demonstrate heterogeneous but symmetric enhancement without hydronephro sis or renal calculi. Adrenal glands: Unremarkable. Gastrointestinal tract: Colonic diverticulosis without surrounding inflammatory change. Appendix: The appendix is not definitively visualized. However, no pericecal inflammatory change is identified suggest the presence of acute appendicitis. Vasculature: Densely calcified atherosclerotic disease. Lymph nodes: No pathologically enlarged or morphologically suspicious lymph nodes within the retroperitoneum or at the root of the mesentery. Pelvic structures: The bladder is distended, and otherwise unremarkable. The uterus is presumed surgically absent or atrophic. The right ovary demonstrates fluid attenuation and is enlarged measuring 31 x 21 x 25 mm (anterior to posterior x medial to lateral x cranial to cau herminio dimension). This has increased in size from the 09/28/2022 examination when it measured 25 x 18 x 23 mm (anterior to posterior x medial to lateral x cranial to caudal dimension). Focused ultrasound i s recommended. Body wall and musculoskeletal: Small fat-containing umbilical hernia. Evidence of prior vertebral augmentation at the levels of T10 and L2 within the lower thoracic and nicole mbosacral spines. Compression of both vertebral bodies at these levels is present, unchanged from 3. Redemonstration of significant degenerative disease at the level of L4/L5 and L5/S1 with osteophyte f ormation, disc space narrowing, endplate changes and vacuum phenomena. At the level of L5/S1, there is near complete obliteration of the intervertebral disc space, demonstr ating progression since 2022 examination. Endplate changes are now detected within the inferior endplate of L4 and the superior endplate of L5. 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 No acute fractures. Interval enlargement of a focus of decreased attenuation within the body of the pancreas when compare d with multiple prior studies with atrophy of the tail of the pancreas. Follow-up examination (noneme rgently) with contrast-enhanced MRI/MRCP with pancreatic mass protocol is recommended. Interval enlargement of the right ovary, an abnormal finding in a patient of this age, for which focu sed ultrasound (nonemergently) may be performed. Reviewed, dictated and finalized at location A. 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 No acute fractures. Interval enlargement of a focus of decreased attenuation within the body of the pancreas when compared with multiple prior studies with atrophy of the tail of the pancreas. Follow-up examination (nonemergently) with contrast-enhanced MRI /MRCP with pancreatic mass protocol is recommended. Interval enlargement of the right ovary, an abnormal finding in a patient of th is age, for which focused ultrasound (nonemergently) may be performed.
--- NOTE | ~2025-01-05 | XR_ITS ---
EXAMINATION: XR shoulder RT min 2V DATE: 01/10/2025 12:27 INDICATION: Right shoulder pain TECHNIQUE: AP internally and externally rotated, AP oblique externally rotated and transscapular Y vi ews of the right shoulder were obtained. COMPARISON: 03/14/2024 FINDINGS: Normal alignment. Lower thoracic compression fractures with change of prior vertebroplasty. No other fractures identified. Mild right glenohumeral and acromioclavicular osteoarthritis. Subtle calcificat ion along the middle facet of the greater tuberosity which can be seen with infraspinatus calcific te ndinitis. Soft tissues are unremarkable. Oblique band of discoid atelectasis in the right midlung zon e. IMPRESSION: 1. Mild right glenohumeral and acromioclavicular osteoarthritis. No acute osseous abnormality. 2. Subtle amorphous calcification along the middle facet of the greater tuberosity which can be seen with infraspinatus calcific tendinitis. Reviewed, dictated and finalized at location A. IMPRESSION: 1. Mild right glenohumeral and acromioclavicular osteoarthritis. No acute osseo us abnormality. 2. Subtle amorphous calcification along the middle facet of the greater tuberos ity which can be seen with infraspinatus calcific tendinitis.
--- NOTE | ~2025-01-05 | CT_ITS ---
CT brain wo con Ordering provider: Axel Leiva MD History: 79 years Female with . fall . Comparison: January 05, 2025 Technique: CT of the head without contrast. Radiation reduction technique utilized.The dose-length pr oduct was 605.33 mGy-cm. FINDINGS: BRAIN PARENCHYMA AND CSF SPACES: Mild leukoaraiosis and diffuse cortical atrophy. Mild atheromatous d isease. 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 Empty sella turcica. No midline lila ft, mass effect or hemorrhage. The brain parenchyma and CSF spaces are otherwise normal. Persistent cavum septum verge is noted. VISUALIZED PARANASAL SINUSES: Well aerated. Right nasal septal deviation. MASTOIDS: Well aerated. BONES: The bones appear intact. SOFT TISSUES: Visualized nasopharynx is normal. Superficial soft tissues are normal. IMPRESSION: No acute intracranial findings. Reviewed, dictated and finalized at location [facility].
--- NOTE | ~2025-01-05 | CT_ITS ---
EXAMINATION: CT thoracic lumbar wo con DATE: 01/13/2025 09:12 INDICATION: TECHNIQUE: Computed tomography (CT) of the thoracic and lumbar spine was performed without intravenou s contrast. Sagittal and coronal reconstructions were created. Automated exposure control and iterati ve reconstruction technique were employed. The dose-length product was 1817.00 mGy-cm. COMPARISON: Lumbar spine CT dated 03/14/[address] dated 02/04/2018 FINDINGS: Thoracic spine: Alignment is normal. Chronic T10 compression fracture with 50% central vertebral body height loss and change of prior vertebroplasty. Additional chronic mild T9 compression fracture with 20% anterior ve rtebral body height loss. No acute fracture. Severe disc height loss with degenerative endplate paz es at C6-C7. There is mild disc height loss at T2-T3 through T7-T8. Mild to moderate multilevel thora cic facet osteoarthritis with upper thoracic predominance. There is mild neural foraminal stenosis bi laterally at C6-C7 and T10-T11. Minimal neural foraminal stenosis at a few additional levels. Posteri or endplate osteophytes contributing to mild central canal stenosis at C6-C7. No central canal and th e thoracic spine. Mild dependent atelectasis in both lungs. Lumbar spine: Minimal lower lumbar levocurvature. Sagittal alignment is normal. Chronic L2 burst fracture with 60% central vertebral body height loss and <2 mm retropulsion, also with change of prior vertebroplasty. No acute fracture. Severe disc height loss with early fusion across the L5-S1 disc space. Severe righ t-sided disc height loss with vacuum phenomena noted type III sclerotic endplate changes at L4-L5. Mo derate disc height loss at L2-L3 and mild disc height loss at L3-L4. There is widening of the central disc space at L1-L2 resulting from the central depression of the superior endplate of L2. Several si gmoid diverticula without adjacent inflammatory stranding to suggest diverticulitis. Paravertebral so ft tissues are unremarkable. The following disc levels are specifically discussed: T12-L1: There is mild right and moderate left facet joint osteoarthritis. There is no neural foramina l stenosis. There is no central canal stenosis. L1-L2: Disc is bulging. There is mild bilateral facet joint osteoarthritis. There is mild left and mi nimal right neural foraminal stenosis. There is mild central canal stenosis. L2-L3: Disc is bulging. There is mild bilateral facet joint osteoarthritis. There is mild to moderate bilateral neural foraminal stenosis. There is mild central canal stenosis. L3-L4: Disc is bulging. There is mild to moderate left and moderate right facet joint osteoarthritis. There is mild to moderate right and moderate left neural foraminal stenosis. There is mild to modera te central canal stenosis. L4-L5: Disc is bulging with annular fissure and vacuum phenomena within the disc bulge. There is mild to moderate left and moderate to severe right facet joint osteoarthritis. There is moderate left and moderate to severe right neural foraminal stenosis. There is moderate central canal stenosis. L5-S1: Posterior disc osteophyte complex. There is moderate bilateral facet joint osteoarthritis. The re is no neural foraminal stenosis. There is no central canal stenosis. IMPRESSION: 1. Chronic T10 compression fracture and L2 burst fracture, both with prior vertebroplasty. No acute o sseous abnormality. 2. Severe lower lumbar spondylosis with mild spondylosis and more cephalad lumbar and thoracic spine. Reviewed, dictated and finalized at location A. IMPRESSION: 1. Chronic T10 compression fracture and L2 burst fracture, both with prior vert ebroplasty. No acute osseous abnormality. 2. Severe lower lumbar spondylosis with mild spondylosis and more cephalad lumb ar and thoracic spine.
--- NOTE | ~2025-01-05 | US_ITS ---
US pelvic complete Ordering provider: Josi Michelle DO History: . Right ovary mass . Comparison: None. Technique: Transabdominal ultrasound of the pelvis (Doppler ultrasound interrogation techniques used as needed for this exam.) FINDINGS: UTERUS: Not visualized. CUL DE SAC: No free fluid. RIGHT OVARY: Not visualized. LEFT OVARY: Not visualized. ADNEXA: Normal. No mass. IMPRESSION: Nonvisualization of the uterus and ovaries. Reviewed, dictated and finalized at location A.
--- NOTE | ~2025-01-05 | XR_ITS ---
XR shoulder LT min 2V Ordering provider: Axel Leiva History: . fall . Comparison: None. FINDINGS: BONES: Possibility of fracture in the area of the acromioclavicular joint is marked excluded. CT eval uation advised. JOINT SPACES: The glenohumeral joint is normal. SOFT TISSUES: Normal. IMPRESSION: possible fracture in the area of the left acromioclavicular joint. CT evaluation advised. Reviewed, dictated and finalized at location A. IMPRESSION: possible fracture in the area of the left acromioclavicular joint. CT evaluatio n advised.
--- NOTE | ~2025-01-05 | CT_ITS ---
Noncontrast CT scan of the cervical spine Technique: Multiple contiguous axial [address] images of the cervical spine were obtained and rec onstructed in 2D sagittal and coronal planes on the acquisition scanner. Dose reduction technique was used on this scan by utilizing automated exposure control, adjustment of the mA and/or kV according to patient size. The dose-length product (DLP) was 376.17 mGy-cm. Clinical History: Pain Findings: No fractures or dislocations. There is advanced degenerative disc narrowing at C6-C7. Ther e are mild scattered facet joint degenerative changes in the cervical spine. There is bilateral neura l foraminal narrowing at C6-C7.. No prevertebral soft tissue swelling. Impression: No fracture or subluxation of the cervical spine. Degenerative changes at C6-C7, as above. Reviewed, dictated and finalized at [facility]. Impression: No fracture or subluxation of the cervical spine. Degenerative changes at C6-C7, as above.
--- NOTE | ~2025-01-05 | CT_ITS ---
Noncontrast CT scan of the left shoulder CLINICAL HISTORY: Fracture, status post fall TECHNIQUE: Axial noncontrast imaging of the left shoulder was performed. Sagittal and coronal reforma tted images were constructed. Dose reduction technique was used on this scan by utilizing automated e xposure control and iterative reconstruction technique. The dose-length product (DLP) was 473.80 mGy- cm. Findings: No acute fracture seen. There is a chronic nonunited and displaced fracture of the distal l eft clavicle with mature cortication along the fracture margins. This fracture demonstrates mild comm inution. Glenohumeral joint intact. There is [id number] AC joint degenerative change. No joint effusion evident. Visualized musculature grossly intact. No soft tissue mass or hematoma seen. Visualized left lung is clear. IMPRESSION: No acute fracture or dislocation. 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 Reviewed, dictated and finalized at [facility].
--- NOTE | ~2025-01-05 | XR_ITS ---
EXAMINATION: XR forearm LT 2V DATE: 01/13/2025 09:37 INDICATION: Left forearm injury post fall TECHNIQUE: AP an lateral views of the left forearm were obtained. COMPARISON: none FINDINGS: Alignment is normal. No fracture. Chondrocalcinosis at the wrist joint. There is polyarticular osteoa rthritis, severe at the triscaphe joint, moderate severity at the first carpometacarpal joint and mil d at the wrist and elbow joints. Soft tissues are unremarkable. No elbow joint effusion. IMPRESSION: 1. Polyarticular osteoarthritis as detailed above. No acute osseous abnormality. Reviewed, dictated and finalized at location A. IMPRESSION: 1. Polyarticular osteoarthritis as detailed above. No acute osseous abnormality .
--- NOTE | ~2025-01-05 | XR_ITS ---
EXAMINATION: XR humerus LT DATE: 01/13/2025 09:37 INDICATION: Left humeral injury post fall TECHNIQUE: AP and lateral views of the left humerus were obtained COMPARISON: None. FINDINGS: There is overriding of a chronic nonunited fracture of the lateral left clavicle. Alignment is otherw ise normal. No acute fractures identified. Mild osteoarthritis at the left acromioclavicular joint. R emaining joint spaces are unremarkable. Soft tissues are unremarkable. No elbow joint effusion. IMPRESSION: 1. Chronic nonunited lateral left clavicle fracture. No acute osseous abnormality. Reviewed, dictated and finalized at location A. IMPRESSION: 1. Chronic nonunited lateral left clavicle fracture. No acute osseous abnormali ty.
--- OUTSIDE RECORDS SUMMARY | 2025-01-05 11:08 | XMS_ITS | Clinical Summary ---
Author Organization [facility] [employer] Address [address] [facility] [place] [address] Care Team Providers Care Solutions Manager Name Role Phone Jason Botello MD Primary Care Provider [phone] Source Comments [facility] [employer],non-owned Affiliates and Associated Physician Practices is amultiple site organization consisting of ambulatory clinics and hospital sitesin [place], [place]. This disclosure is being madepursuant to the Care Everywhere program and may not contain all information available regarding this patient. Last updated 18.[employer] Allergies No known active allergies Medications * [...] 3:55 PM CDT Height 160 cm (5' 3) 03/31/2018 3:55 PM CDT Body Mass Index [...] - 1-dose 75+ series) 2021 COVID-19 VACCINE (1 - 2023-2 5 season) 2024 DEPRESSION SCREENING [...] patient's age to complete this topic Insurance [facility] [place] [facility] MANAGED MEDICARE ADV SELF PAY NO INSURANCE Member Subscriber Plan / Payer (Ef fective for All Dates) Name:Connor Pike [place] Member ID:Not on file Relation to Subscriber:Not on file Name:CONNOR PIKE Subscriber ID:Not on file (Home) Address: [address] [place] [address] [address] Payer ID:Not on file Group ID:Not on file Type:Self Pay Address: [place], [place] Advance Directives Documents on File Type Date Recorded 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
--- OUTSIDE RECORDS SUMMARY | 2025-01-05 11:08 | XMS_ITS | Clinical Summary ---
Author Organization [facility] Address [address] [place] [address] Phone Care Team Providers Care Senior Air Director Name Role Phone Karen Reyna JEFFERY Primary Care Provider [phone] Allergies Active Allergy Reactions Criticality Noted Date [...] hy 05/20/2018 Atherosclerotic heart diseas e of [place] coronary artery without angina pectoris 05/20/2018 Closed [...] on file Legal Sex Female 8:02 AM [facility] Gender Identity Not on file Sexual Orientation [...] 10:28 AM CDT Height 160 cm (5' 3) 03/01/2021 10:28 AM CDT Body Mass Index 33.66 03/01/2021 10:28 AM CDT Plan of Treatment Health Maintenance Due Date Last Done Comments Pneumococcal PPSV23/PCV13 65 + Years / Low and Medium Risk (1 of 4 - PCV) 1996 Influenza Vaccine (Season Ended) 2025 04/12/20 20 Insurance [facility] MEDICARE ADVANTAGE MEDICARE ADVANTAGE Care Teams Senior Air Director Relationship Specialty Start Date End Date Karen Reyna FNP [address] [place] [address] PCP - General Family Medicine 07/04/21
--- NOTE | 2025-01-05 12:18 | PC.NURSE ---
Patient complains of back pain. Patient denies auditory or visual hallucinations
--- NOTE | 2025-01-05 12:48 | ECG_ITS ---
Test Date: 2025-01-05 13:06:34 Measurements Intervals [place] Rate: 78 P: 35 OR: 180 QRS: -9 QRSD: 87 T: 66 QT: 388 QTc: 444 Interpretive Statements SINUS RHYTHM LOW QRS VOLTAGE IN PRECORDIAL LEADS [QRS DEFLECTION < 1.0 mV IN CHEST LEADS] NONSPECIFIC ST & T-WAVE ABNORMALITY Compared to ECG 07/02/2024 13:35:52 NO SIGNIFICANT CHANGES Electronically Signed On 01-05-2025 14:27:47 CDT by Dawson Saucedo M.D.
--- OUTSIDE RECORDS SUMMARY | 2025-01-05 13:04 | XMS_ITS | Clinical Summary ---
Author Organization [facility] [employer] Address [address] [place] [address] Care Team Providers Care Security Flex Officer Name Role Phone Jason Botello MD Primary Care Provider [phone] Source Comments [facility] [employer],non-owned Affiliates and Associated Physician Practices is amultiple site organization consisting of ambulatory clinics and hospital sitesin [place], [place], [place] and [place]. This disclosure is being madepursuant to the Care Everywhere program and may not contain all information available regarding this patient. Last updated 18.[employer] Allergies No known active allergies Medications * [...] patient's age to complete this topic Insurance [facility] MEDICAID - [place] [facility] MANAGED MEDICARE ADV SELF PAY NO INSURANCE Member Subscriber Plan / Payer (Ef fective for All Dates) Name:Connor Pike [place] Member ID:Not on file Relation to Subscriber:Not on file Name:CONNOR PIKE Subscriber ID:Not on file (Home) Address: [address] [place] [address] [address] Payer ID:Not on file Group ID:Not on file Type:Self Pay Address: [place], [place] Advance Directives Documents on File Type Date Recorded 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
--- OUTSIDE RECORDS SUMMARY | 2025-01-05 13:05 | XMS_ITS | Clinical Summary ---
Author Organization [facility] Address [address] [place] [address] Phone Care Team Providers Care Back Maker Name Role Phone Karen Reyna JEFFERY [...] hy 05/20/2018 Atherosclerotic heart diseas e of [place] coronary artery without angina pectoris 05/20/2018 Closed [...] on file Legal Sex Female 8:02 AM [facility] Gender Identity Not on file Sexual Orientation [...] Vaccine (Season Ended) 2025 04/12/20 20 Insurance [facility] MEDICARE ADVANTAGE MEDICARE ADVANTAGE Care Teams Back Maker Relationship Specialty Start Date End Date Karen Reyna FNP [address] [place] [address] PCP - General Family Medicine 07/04/21
--- NOTE | 2025-01-05 13:08 | ED_ITS ---
HPI - General Adult General Chief complaint: Altered Mental Status Stated complaint: AMS/hallucinations-R flank pain Time Seen by Provider: 01/05/25 12:43 History of Present Illness HPI narrative: 79-year-old female presenting to the emergency department for evaluation for hallucinations. Patient states this morning she felt she was talking to multiple children that were at her care facility. Care facility states this was not happening. Care facility also stated the patient was claiming that she was a child. At this time patient feels this was most likely a hallucination. Patient denies any pain with urination. Patient does complain right lower quadrant abdominal pain. Patient also has some lower back pain which he states is chronic. Patient denies any falls or injuries. Related Data Home Medications ?Medication ?Instructions ?Recorded ?Confirmed ?Last Taken ?Type acetaminophen 325 mg capsule 650 mg PO Q6H PRN Pain (Scale 10/14/19 12/22/24 09/27/21 History Score 1-3) alprazolam 0.5 mg tablet 0.75 mg PO HS 10/14/19 12/22/24 09/28/21 History aspirin 81 mg tablet,delayed 81 mg PO DAILY 10/14/19 12/22/24 09/25/21 History release (Adult Low Dose Aspirin) carvedilol 25 mg tablet (Coreg) 25 mg PO BID 10/14/19 12/22/24 12/22/24 History donepezil 5 mg tablet 10 mg PO DAILY 10/14/19 12/22/24 09/27/21 History furosemide 20 mg tablet 20 mg PO QAM 10/14/19 12/22/24 09/27/21 History glucose 4 gram chewable tablet 4 gm PO Q15M PRN Hypoglycemia 10/14/19 12/22/24 09/27/21 History (Dex4 Glucose) ipratropium 0.5 mg-albuterol 3 mg 3 ml inhalation Q6H PRN Dyspnea 10/14/19 12/22/24 Unknown History (2.5 mg base)/3 mL nebulization soln methocarbamol 750 mg tablet 750 mg PO TID PRN Muscle Spasm 10/14/19 12/22/24 09/27/21 History montelukast 10 mg tablet 10 mg PO HS 10/14/19 12/22/24 09/27/21 History multivitamin 1 tablet PO DAILY 10/14/19 12/22/24 09/25/21 History pantoprazole 40 mg tablet,delayed 40 mg PO DAILY 10/14/19 12/22/24 09/27/21 History release paroxetine HCl 40 mg tablet 60 mg PO DAILY 10/14/19 12/22/24 09/28/21 History sitagliptin phosphate 100 mg 100 mg PO QAM 10/14/19 12/22/24 09/27/21 History tablet (Januvia) vitamin B complex (B 1 tablet PO DAILY 10/14/19 12/22/24 09/25/21 History Complex-Vitamin B12 tablet) polyethylene glycol 3350 17 17 gm PO BID PRN Constipation 09/18/21 12/22/24 09/27/21 History gram/dose oral powder (Miralax) atorvastatin 20 mg tablet 20 mg PO HS 04/23/22 12/22/24 Unknown History glipizide 10 mg tablet 10 mg PO DAILY 04/23/22 12/22/24 Unknown History Robitussin DM Max 10 ml PO Q4H PRN Cough 07/02/24 12/22/24 Unknown History acetaminophen 500 mg capsule 500 mg PO QID PRN Pain (Scale 07/02/24 12/22/24 Unknown History Score 4-6) alprazolam 0.5 mg tablet 1 mg PO BID 07/02/24 12/22/24 Unknown History biotin 2,500 mcg PO DAILY 07/02/24 12/22/24 Unknown History buspirone 10 mg tablet 20 mg PO TID 07/02/24 12/22/24 Unknown History multivitamin (Daily-[place] tablet) 1 tablet PO DAILY 07/02/24 12/22/24 Unknown History tramadol 50 mg tablet 50 mg PO Q6H PRN Pain (Scale Score 07/02/24 12/22/24 Unknown History 4-6) Allergies Allergy/AdvReac Type Severity Reaction Status Date / Time meperidine AdvReac Mild Diarrhea Verified 12/22/24 08:18 Review of Systems 2 Review of Systems: All systems reviewed & are unremarkable except as noted in HPI and below PMFSH Past Medical History Medical History Colon polyps Tenesmus (rectal) History of diverticulitis Rectal bleeding Diarrhea Abdominal bloating COPD exacerbation Asthma-COPD overlap syndrome Chronic respiratory failure with hypoxia, on home oxygen therapy Chronic kidney disease, stage 3 Insulin dependent type 2 diabetes mellitus Dyslipidemia Hypertension Gastroesophageal reflux disease Congestive heart failure Cerebrovascular accident Coronary artery disease Anemia Anxiety Depression Arthritis Colitis Hiatal hernia Gastric ulcer Pneumonia Asthma Myocardial infarction Surgical History Surgical History History of sinus surgery History of bladder suspension procedure History of tubal ligation History of hysterectomy History of coronary artery stent placement History of dilation and curettage History of cardiac catheterization History of colonoscopy with polypectomy History of appendectomy Family History Family History Mother Family history of diabetes mellitus in first degree relative Family history of primary malignant neoplasm of liver Family history of heart disease in male family member before age 55 Family history of hearing loss Family history of liver disease Diabetes mellitus Cerebrovascular accident Family history of pancreatic cancer Hypertension Father Family history of emphysema Sibling Diabetes mellitus Other Depression Family history of alcoholism Family history of allergic disorder Family history of arthritis Family history of cardiovascular disease Family history of coronary artery disease Family history of malignant neoplasm Family history of mental disorder Family history of osteoporosis Social History Social History Social History: Healthcare power of privacy attorney: Alistair Martínez. Code status: Full code. Smoking status: Never smoker Second hand tobacco smoke exposure: Yes Alcohol intake: never Alcohol use details: History of alcohol abuse, none since 2014. Substance use: never Do You Feel Safe in your Home?: Yes Lack of Transportation: No Lack of Food: Never True Current Housing: I Have Housing Concerned About Future Housing: No Difficulty Paying Gas/Electric Bills: No Difficulty Paying for Meds: No Currently Unemployed: No Education: High School Diploma/GED Difficulty w/ Childcare or Family Care: No Living arrangements: assisted living Additional living arrangements comments: Assisted living at [facility]. Occupation/Education: retired Gender identity (if verbalized by the patient): Female Spiritual care concerns: No Exam 2 Narrative: APPEARANCE: Well appearing, no pain, no distress, well-nourished. HEAD: normocephalic, atraumatic. EYES: PERRLA/EOMI, conjunctivae clear. NOSE: Normal no drainage EARS:TMS clear with good light reflex. THROAT: Pharynx clear, no exudate. NECK: Supple. No adenopathy, no masses. RESPIRATORY: Airway patent, respirations nonlabored. Clear to auscultation bilaterally, no rales, rhonchi, wheezing. CARDIOVASCULAR: Regular rate and rhythm without murmurs rubs or gallops. ABDOMINAL: Right lower quadrant tenderness to palpation MUSCULOSKELETAL: Moves all extremities. Strength/ROM intact, No edema, No calf tenderness. NEURO: Alert and orientated to location, no active hallucinations, normal neuro exam SKIN: Warm, dry. Normal Color Course Vital Signs Vital signs: Vital Signs Temperature 98.3 F 01/05/25 11:11 Pulse Rate 77 01/05/25 11:11 Respiratory Rate 20 01/05/25 11:11 Blood Pressure 155/90 H 01/05/25 11:11 Pulse Oximetry 96 01/05/25 11:11 Oxygen Delivery Room Air 01/05/25 11:11 Temperature 97.9 F 01/05/25 19:03 Pulse Rate 80 01/05/25 19:03 Respiratory Rate 18 01/05/25 19:03 Blood Pressure 182/91 H 01/05/25 19:03 Pulse Oximetry 99 01/05/25 19:03 Oxygen Delivery Room Air 01/05/25 11:11 Medical Decision Making [facility] Narrative Medical decision making narrative: 71-year-old female presents to the emergency department for evaluation for hallucinations and confusion. Patient is afebrile with no leukocytosis and hemoglobin 11.8. Patient has an INR of 1.0. Patient does have a creatinine of 1.17 which is similar to her baseline. Patient has no elevation in AST ALT alk- phos. UA was positive for leukocyte esterase had high white blood cells and +4 bacteria. Patient does have previous urine cultures which shows sensitivity to cephalosporins. Patient was started on IV Rocephin in the emergency department and urine cultures were ordered. Head CT was negative for acute intracranial abnormality, chest x-ray showed no focal infiltrate or effusion and CT abdomen pelvis showed no acute findings but does show some chronic findings that will need outpatient follow-up. Case was discussed with hospitalist and patient will be admitted for UTI and altered mental status. Differential Diagnosis Differential Diagnosis: CVA, TIA, subdural hematoma, subarachnoid hemorrhage, UTI, COVID, RSV, influenza, pneumonia Vital Signs Vital Signs: Vital Signs Temperature 98.3 F 01/05/25 11:11 Pulse Rate 77 01/05/25 11:11 Respiratory Rate 20 01/05/25 11:11 Blood Pressure 155/90 H 01/05/25 11:11 Pulse Oximetry 96 01/05/25 11:11 Oxygen Delivery Room Air 01/05/25 11:11 Temperature 97.9 F 01/05/25 19:03 Pulse Rate 80 01/05/25 19:03 Respiratory Rate 18 01/05/25 19:03 Blood Pressure 182/91 H 01/05/25 19:03 Pulse Oximetry 99 01/05/25 19:03 Oxygen Delivery Room Air 01/05/25 11:11 Lab Data Lab results reviewed: Yes I reviewed the patient's lab results. 01/05/25 13:07 01/05/25 13:07 Labs: Lab Results 01/05/25 01/05/25 01/05/25 Range/Units 13:07 15:12 15:13 WBC 9.5 (4.5-10.0) K/mm3 RBC 4.44 (4.2-5.4) M/mm3 Hgb 11.8 L (12.0-15.0) g/dL Hct 37.9 (37.0-47.0) % MCV 85.4 (80-100) fl MCH 26.6 (26-34) pg MCHC 31.1 L (32-36) g/dl RDW 14.6 H (11.5-14.5) % Plt Count 263 (150-375) k/mm3 MPV 10.4 (7.4-10.4) fl Immature Gran % (Auto) 0.4 (0-0.5) % Neut % (Auto) 67.1 (45.5-73.1) % Lymph % (Auto) 21.4 (18.3-44.2) % [place] % (Auto) 8.4 (2.6-8.5) % Eos % (Auto) 2.3 (0-4.4) % Baso % (Auto) 0.4 (0.2-1.2) % Lymph # (Auto) 2.04 (0.9-3.2) K/mm3 [place] # (Auto) 0.8 H (0.1-0.6) K/mm3 Eos # (Auto) 0.2 (0-0.3) K/mm3 Baso # (Auto) 0.0 (0.0-0.1) K/mm3 Abs Immat Gran (auto) 0.04 H (0.00-0.031) K/mm3 Absolute Neuts (auto) 6.4 (1.3-6.7) K/mm3 Absolute Nucleated RBC 0.000 (0.0-0.012) K/mm3 Nucleated RBC % 0.0 (0.0-0.2) % PT 13.8 (11.1-14.7) Seconds INR 1.0 APTT 29.6 (22.3-36.8) Seconds Sodium 139 (137-145) mmol/L Potassium 4.5 (3.4-5.0) mmol/L Chloride 102 (98-107) mmol/L Carbon Dioxide 30 (22-30) mmol/L Anion Gap 7 (4-12) mmol/L BUN 30 H D (7-17) mg/dL Creatinine 1.17 H (0.7-1.0) mg/dL Estim Creat Clear Calc 37 ml/min Estimated GFR 45 L (59 - ) Glucose 149 H (65-110) mg/dL POC Capillary Glucose 120 H (65-105) mg/dl Lactic Acid 1.0 (0.7-2.0) mmol/L Calcium 9.8 (8.4-10.2) mg/dL Total Bilirubin 0.6 (0.2-1.3) mg/dL AST 32 (14-36) U/L ALT 23 (6-35) U/L Alkaline Phosphatase 113 (38-126) U/L Ammonia < 9 L (9-30) umol/L Total Protein 7.0 (6.3-8.2) g/dL Albumin 4.3 (3.5-5.1) g/dL Urine Color Yellow (Yellow) Urine Appearance Clear (Clear) Urine pH 8.0 (5.0-9.0) Ur Specific [place] 1.033 (1.001-1.035) Urine Protein Negative (Negative) mg/dL Urine Glucose (UA) Negative (Negative) mg/dL Urine Ketones Negative (Negative) mg/dL Ur Blood (Man) Negative (Negative) Urine Nitrate Negative (Negative) Urine Bilirubin Negative (Negative) Urine Urobilinogen 0.2 (<2.0) mg/dL Add Ur Microanalysis Reviewed Leukocyte Esterase Rfl 2+ H (Negative) TENA/UL Urine RBC 0-2 (0-2) /hpf Urine WBC 21-50 H (0-3) /hpf Ur Squamous Epith Cells None seen (Few) /hpf Urine Bacteria 4+ H /hpf Urine Casts 0-2 Imaging Data Radiologist's impression: Impressions Chest X-Ray 01/05/25 13:01 IMPRESSION: No focal infiltrate or effusion. Head CT 01/05/25 14:21 Impression: No acute intracranial hemorrhage or suspicious mass effect. 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 No acute fractures. Interval enlargement of a focus of decreased attenuation within the body of the pancreas when compared with multiple prior studies with atrophy of the tail of the pancreas. Follow-up examination (nonemergently) with contrast-enhanced MRI/MRCP with pancreatic mass protocol is recommended. Interval enlargement of the right ovary, an abnormal finding in a patient of this age, for which focused ultrasound (nonemergently) may be performed. Discharge Plan Discharge Clinical Impression: Hallucinations, Urinary tract infection, AMS (altered mental status) Patient Disposition: Still a Patient Condition: Stable
[2025-01-05 13:20] LABS: Basophils Percent Auto 0.4 % (0.2-1.2); Eosinophils Absolute Auto 0.2 K/mm3 (0-0.3); Eosinophils Percent Auto 2.3 % (0-4.4); Hematocrit 37.9 % (37.0-47.0); Hemoglobin 11.8 g/dL (12.0-15.0); Immature Granulocyte Absolute 0.04 K/mm3 (0.00-0.031); Immature Granulocyte Percent A 0.4 % (0-0.5); Lymphocytes Absolute Auto 2.04 K/mm3 (0.9-3.2); Lymphocytes Percent Auto 21.4 % (18.3-44.2); Mean Corpuscular HGB Conc 31.1 g/dl (32-36); Mean Corpuscular Hemoglobin 26.6 pg (26-34); Mean Corpuscular Volume 85.4 fl (80-100); Mean Platelet Volume 10.4 fl (7.4-10.4); Monocytes Absolute Auto 0.8 K/mm3 (0.1-0.6); Monocytes Percent Auto 8.4 % (2.6-8.5); Neutrophils Absolute Auto 6.4 K/mm3 (1.3-6.7); Neutrophils Percent Auto 67.1 % (45.5-73.1); Platelet Count Result 263 k/mm3 (150-375); Red Blood Count 4.44 M/mm3 (4.2-5.4); Red Cell Distribution Width 14.6 % (11.5-14.5); White Blood Count 9.5 K/mm3 (4.5-10.0)
[2025-01-05 13:22] LABS: Ammonia < 9 umol/L (9-30)
[2025-01-05 13:24] LABS: Prothrombin Time 13.8 Seconds (11.1-14.7)
[2025-01-05 13:25] LABS: Partial Thromboplastin Time 29.6 Seconds (22.3-36.8)
[2025-01-05 13:28] LABS: Alanine Aminotransferase 23 U/L (6-35); Albumin Level 4.3 g/dL (3.5-5.1); Alkaline Phosphatase 113 U/L (38-126); Anion Gap 7 mmol/L (4-12); Aspartate Amino Transferase 32 U/L (14-36); Bilirubin,Total 0.6 mg/dL (0.2-1.3); Blood Urea Nitrogen 30 mg/dL (7-17); Calcium 9.8 mg/dL (8.4-10.2); Carbon Dioxide 30 mmol/L (22-30); Chloride 102 mmol/L (98-107); Estimated CRCL calculation 37 ml/min; Estimated Glomerular Filt Rate 45; Glucose 149 mg/dL (65-110); Potassium 4.5 mmol/L (3.4-5.0); Sodium 139 mmol/L (137-145)
--- NOTE | 2025-01-05 14:22 | PC.NURSE ---
assumed care of pt from BLADE Khan. pt not in room, in CT at this time
[2025-01-05 15:18] LABS: Glucose Point of Care 120 mg/dl (65-105)
[2025-01-05 15:37] LABS: Add Urine Microscopic? YES; Appearance Urine Clear (Clear); Bacteria Urine 4+ /hpf; Bilirubin Urine Negative (Negative); Blood Urine Negative (Negative); Color Urine Yellow (Yellow); Glucose Urine UA Negative (Negative); Ketones Urine Negative (Negative); Leukocyte Esterase Ur 2+ LEU/UL (Negative); Need Manual Microscopic Reviewed; Nitrate Urine Negative (Negative); Non Pathogenic Casts 0-2; Protein Urine Negative (Negative); RBC Urine 0-2 /hpf (0-2); Specific Grav Ur 1.033 (1.001-1.035); Squamous Epithelial Cell Urine None Seen /hpf (Few); Urobilinogen Urine 0.2 mg/dL (<2.0); WBC Urine 21-50 /hpf (0-3)
[2025-01-05] MEDS: SODIUM CHLORIDE 0.9% IV 1,000 ML 100 ML IV CONT (21:27)
[2025-01-06] VITALS (10 sets, daily range): BP systolic 134–153; BP diastolic 53–83; PULSE 72–93; RESP 14–20; TEMP 36.3–36.7; O2SAT 95–98
[2025-01-06] MEDS: ALPRAZolam (*CRX) 0.25 MG TABLET 0.75 MG PO ×2 (04:17→20:41)
[2025-01-06] MEDS: busPIRone HCL 10 MG TABLET 20 MG PO ×4 (04:17→16:54)
--- NOTE | 2025-01-06 05:07 | PM.IMHP ---
H&P: HPI History of Present Illness Date/Time: 01/06/25 05:07 Chief Complaint: Hallucinations Narrative: 79-year-old female with a past medical history of dementia, chronic hypoxic respiratory failure on home oxygen, chronic kidney disease stage 3, type 2 diabetes mellitus, GERD, congestive heart failure with preserved ejection fraction, CVA and mild dementia who presented to the ER via EMS from [facility] due to hallucinations. The patient reports that she was seeing people that were not there that were trying to show her papers and she was trying to explain how to operate something to them. Nursing staff tells me that the patient was hallucinating most of the night and was convinced that she was on [place] to sea. This morning the patient was more cognizant and was alert oriented to person, month, year and the name of the current president but was confused as to which hospital she was in. However she could tell me that she was on the 3rd floor and 2 what room she was assigned. She reports that she has been having 3 weeks or more of dysuria and increased urinary urgency. She denies any hematuria. She denies any recent heat a fevers or chills. She has not had any nausea or vomiting. She has had decreased appetite. She denies any flank pain or back pain beyond her chronic discomfort. She is not noticing any increased shortness of breath. Despite her history of dementia she is a fair historian. She is cognizant and aware that she was hallucinating yesterday. Although it does not seem the that she realizes home which she was hallucinating throughout the night. Review of Systems Review of Systems: 12 systems were reviewed with pertinent positives and negatives per HPI. Except as documented in the HPI, all other systems were reviewed and are negative. [facility] Past Medical History Medical History (Updated 01/06/25 @ 10:56 by Josi Michelle DO) History of diverticulitis Dementia Colon polyps Tenesmus (rectal) COPD exacerbation Asthma-COPD overlap syndrome Chronic respiratory failure with hypoxia, on home oxygen therapy Chronic kidney disease, stage 3 Insulin dependent type 2 diabetes mellitus Dyslipidemia Hypertension Gastroesophageal reflux disease Congestive heart failure With preserved ejection fraction, mildly dilated right ventricle with normal right ventricular function Cerebrovascular accident Coronary artery disease Anemia Anxiety Depression Arthritis Colitis Hiatal hernia Gastric ulcer Asthma Myocardial infarction Surgical History Surgical History History of sinus surgery History of bladder suspension procedure History of tubal ligation History of hysterectomy History of coronary artery stent placement History of dilation and curettage History of cardiac catheterization History of colonoscopy with polypectomy History of appendectomy Family History Family History Mother Family history of diabetes mellitus in first degree relative Family history of primary malignant neoplasm of liver Family history of heart disease in male family member before age 55 Family history of hearing loss Family history of liver disease Diabetes mellitus Cerebrovascular accident Family history of pancreatic cancer Hypertension Father Family history of emphysema Sibling Diabetes mellitus Other Depression Family history of alcoholism Family history of allergic disorder Family history of arthritis Family history of cardiovascular disease Family history of coronary artery disease Family history of malignant neoplasm Family history of mental disorder Family history of osteoporosis Social History Social History (Updated 01/06/25 @ 10:38 by Josi Michelle DO) Social History: Healthcare power of finance attorney: Alistair Martínez. Code status: Full code. Smoking status: Never smoker Second hand tobacco smoke exposure: Yes Alcohol intake: never Alcohol use details: History of alcohol abuse, none since 2014. Substance use: never Do You Feel Safe in your Home?: Yes Lack of Transportation: No Lack of Food: Never True Current Housing: I Have Housing Concerned About Future Housing: No Difficulty Paying Gas/Electric Bills: No Difficulty Paying for Meds: No Currently Unemployed: No Education: High School Diploma/GED Difficulty w/ Childcare or Family Care: No Living arrangements: assisted living Additional living arrangements comments: Assisted living at [facility]. Occupation/Education: retired Gender identity (if verbalized by the patient): Female Spiritual care concerns: No Meds Home Medications and Allergies Home Medications ?Medication ?Instructions ?Recorded ?Confirmed ?Type acetaminophen 325 mg capsule 650 mg PO Q6H PRN Pain (Scale 10/14/19 01/05/25 History Score 1-3) alprazolam 0.5 mg tablet 0.75 mg PO HS 10/14/19 01/05/25 History aspirin 81 mg tablet,delayed 81 mg PO DAILY 10/14/19 01/05/25 History release (Adult Low Dose Aspirin) carvedilol 25 mg tablet (Coreg) 25 mg PO BID 10/14/19 01/05/25 History donepezil 5 mg tablet 10 mg PO DAILY 10/14/19 01/05/25 History furosemide 20 mg tablet 20 mg PO QAM 10/14/19 01/05/25 History glucose 4 gram chewable tablet 4 gm PO Q15M PRN Hypoglycemia 10/14/19 01/05/25 History (Dex4 Glucose) ipratropium 0.5 mg-albuterol 3 mg 3 ml inhalation Q6H PRN Dyspnea 10/14/19 01/05/25 History (2.5 mg base)/3 mL nebulization soln methocarbamol 750 mg tablet 750 mg PO TID PRN Muscle Spasm 10/14/19 01/05/25 History montelukast 10 mg tablet 10 mg PO HS 10/14/19 01/05/25 History multivitamin 1 tablet PO DAILY 10/14/19 01/05/25 History pantoprazole 40 mg tablet,delayed 40 mg PO DAILY 10/14/19 01/05/25 History release paroxetine HCl 40 mg tablet 60 mg PO DAILY 10/14/19 01/05/25 History sitagliptin phosphate 100 mg 100 mg PO QAM 10/14/19 01/05/25 History tablet (Januvia) vitamin B complex (B 1 tablet PO DAILY 10/14/19 01/05/25 History Complex-Vitamin B12 tablet) polyethylene glycol 3350 17 17 gm PO BID PRN Constipation 09/18/21 01/05/25 History gram/dose oral powder (Miralax) atorvastatin 20 mg tablet 20 mg PO HS 04/23/22 01/05/25 History glipizide 10 mg tablet 10 mg PO DAILY 04/23/22 01/05/25 History albuterol sulfate 90 mcg/actuation 2 inhalation inhalation 4-6XD PRN 08/23/22 01/05/25 Rx aerosol inhaler Shortness Of Breath Or Wheezing #8.5 grams fluticasone fur. 100 mcg-umeclid 1 inh inhalation DAILY #60 ea 08/23/22 01/05/25 Rx 62.5 mcg-vilant 25 mcg inhalat.powder (Trelegy Ellipta) fluticasone propionate 50 1 spray intranasal Q12HR #16 grams 08/23/22 01/05/25 Rx mcg/actuation nasal spray,suspension guaifenesin 600 mg tablet, 600 mg PO Q12HR #14 tabs 08/23/22 01/05/25 Rx extended release 12 hr (Mucus Relief ER) hydrocortisone 1 % topical cream 1 applic topical Q12HR PRN itching 08/23/22 01/05/25 Rx #28.35 grams insulin aspart U-100 100 unit/mL 4 - 8 unit subcut TIDWM #10 mL 08/23/22 01/05/25 Rx subcutaneous solution (Novolog U-100 Insulin aspart) lanolin alcohols-mineral 1 applic topical DAILY #113 grams 08/23/22 01/05/25 Rx oil-w.petrolatum-ceresin topical cream (Minerin Creme topical) peg 260-[id number] 1 1 drp EACH EYE QID PRN Dry Eye(S) 08/23/22 01/05/25 Rx %-0.2 %-0.2 % eye drops #15 mL (Artificial Tears ([id number])) Robitussin DM Max 10 ml PO Q4H PRN Cough 07/02/24 01/05/25 History acetaminophen 500 mg capsule 500 mg PO QID PRN Pain (Scale 07/02/24 01/05/25 History Score 4-6) alprazolam 0.5 mg tablet 1 mg PO BID 07/02/24 01/05/25 History biotin 2,500 mcg PO DAILY 07/02/24 01/05/25 History buspirone 10 mg tablet 20 mg PO TID 07/02/24 01/05/25 History multivitamin (Daily-[place] tablet) 1 tablet PO DAILY 07/02/24 01/05/25 History tramadol 50 mg tablet 50 mg PO Q6H PRN Pain (Scale Score 07/02/24 01/05/25 History 4-6) loratadine 10 mg tablet 10 mg PO QAM #30 tabs 07/07/24 01/05/25 Rx ondansetron 4 mg disintegrating 4 mg PO Q8H PRN nausea and 11/03/24 01/05/25 Rx tablet vomiting #14 tabs insulin glargine 100 unit/mL 50 unit subcut HS 01/05/25 01/05/25 History subcutaneous solution (Lantus U-100 Insulin) Allergies Allergy/AdvReac Type Severity Reaction Status Date / Time meperidine AdvReac Mild Diarrhea Verified 12/22/24 08:18 Vital Signs Vital Signs - 24 hr 01/05/25 11:11 01/05/25 14:49 01/05/25 15:12 Temperature 98.3 F 98.7 F 97.8 F Pulse Rate 77 74 80 Respiratory Rate 20 13 20 Blood Pressure 155/90 H 162/72 H 155/84 H Pulse Oximetry 96 98 95 Oxygen Delivery Room Air 01/05/25 16:02 01/05/25 18:31 01/05/25 18:55 Temperature 97.7 F 98.1 F 98.1 F Pulse Rate 80 85 79 Respiratory Rate 22 H 21 H 16 Blood Pressure 183/115 H 140/88 157/82 H Pulse Oximetry 97 Oxygen Delivery 01/05/25 19:03 01/05/25 21:37 01/05/25 21:38 Temperature 97.9 F 97.2 F L Pulse Rate 80 93 Respiratory Rate 18 18 Blood Pressure 182/91 H 140/60 Pulse Oximetry 99 95 Oxygen Delivery Room Air 01/06/25 04:00 Temperature Pulse Rate 86 Respiratory Rate Blood Pressure Pulse Oximetry Oxygen Delivery Exam Narrative: Weight 84.2 kg BMI 31.9 Const: Other: Obese, elderly, no acute distress HENMT: Other: Mucous membranes are tacky, no oral pharyngeal erythema, fair dentition, head is normocephalic atraumatic Eyes: Other: Pupils are equal and reactive, no scleral icterus Neck: Other: Large neck circumference, no JVD Resp: Other: Clear to auscultation bilaterally, no increased work of breathing Cardio: Other: Regular rate, regular rhythm, 2+ bilateral radial pedal pulses, no murmur GI: Other: Soft, nontender, nondistended, normoactive bowel sounds Skin: Other: Generalized pallor, non jaundice Neuro: Other: Alert oriented, speech is clear and fluent, no facial asymmetry extraocular movements intact, no localizing neurologic deficits noted during the course of conversation Extrem: Other: No clubbing, cyanosis or edema, 4/5 digital program manager strength bilaterally Psych: Other: Appropriate mood and affect, pleasant and cooperative H&P: Results Labs Labs: Laboratory Tests 01/05/25 13:07 01/05/25 13:07 01/05/25 01/05/25 01/05/25 13:07 15:12 15:13 WBC 9.5 RBC 4.44 Hgb 11.8 L Hct 37.9 MCV 85.4 MCH 26.6 MCHC 31.1 L RDW 14.6 H Plt Count 263 MPV 10.4 Immature Gran % (Auto) 0.4 Neut % (Auto) 67.1 Lymph % (Auto) 21.4 [place] % (Auto) 8.4 Eos % (Auto) 2.3 Baso % (Auto) 0.4 Lymph # (Auto) 2.04 [place] # (Auto) 0.8 H Eos # (Auto) 0.2 Baso # (Auto) 0.0 Abs Immat Gran (auto) 0.04 H Absolute Neuts (auto) 6.4 Absolute Nucleated RBC 0.000 Nucleated RBC % 0.0 PT 13.8 INR 1.0 APTT 29.6 Sodium 139 Potassium 4.5 Chloride 102 Carbon Dioxide 30 Anion Gap 7 BUN 30 H D Creatinine 1.17 H Estim Creat Clear Calc 37 Estimated GFR 45 L Glucose 149 H POC Capillary Glucose 120 H Lactic Acid 1.0 Calcium 9.8 Total Bilirubin 0.6 AST 32 ALT 23 Alkaline Phosphatase 113 Ammonia < 9 L Total Protein 7.0 Albumin 4.3 Urine Color Yellow Urine Appearance Clear Urine pH 8.0 Ur Specific [place] 1.033 Urine Protein Negative Urine Glucose (UA) Negative Urine Ketones Negative Ur Blood (Man) Negative Urine Nitrate Negative Urine Bilirubin Negative Urine Urobilinogen 0.2 Add Ur Microanalysis Reviewed Leukocyte Esterase Rfl 2+ H Urine RBC 0-2 Urine WBC 21-50 H Ur Squamous Epith Cells None seen Urine Bacteria 4+ H Urine Casts 0-2 Impressions Chest X-Ray 01/05/25 13:01 IMPRESSION: No focal infiltrate or effusion. Head CT 01/05/25 14:21 Impression: No acute intracranial hemorrhage or suspicious mass effect. 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 No acute fractures. Interval enlargement of a focus of decreased attenuation within the body of the pancreas when compared with multiple prior studies with atrophy of the tail of the pancreas. Follow-up examination (nonemergently) with contrast-enhanced MRI/MRCP with pancreatic mass protocol is recommended. Interval enlargement of the right ovary, an abnormal finding in a patient of this age, for which focused ultrasound (nonemergently) may be performed. Assessment and Plan Assessment and plan (1) Hallucinations: Code(s): R44.3 - Hallucinations, unspecified Status: Acute (2) Urinary tract infection: Qualifiers: Urinary tract infection type: acute cystitis Hematuria presence: without hematuria Qualified Code(s): N30.00 - Acute cystitis without hematuria Code(s): N39.0 - Urinary tract infection, site not specified Status: Acute (3) Dementia: Qualifiers: Dementia type: unspecified type Dementia severity: mild Dementia behavioral or psychological symptom: unspecified whether behavioral, psychotic, or mood disturbance or anxiety Qualified Code(s): F03.A0 - Unspecified dementia, mild, without behavioral disturbance, psychotic disturbance, mood disturbance, and anxiety Code(s): F03.90 - Unspecified dementia, unspecified severity, without behavioral disturbance, psychotic disturbance, mood disturbance, and anxiety Status: Acute (4) Pancreatic mass: Code(s): K86.89 - Other specified diseases of pancreas Status: Acute (5) Right ovarian enlargement: Code(s): N83.8 - Other noninflammatory disorders of ovary, fallopian tube and broad ligament Status: Acute (6) Type 2 diabetes mellitus with hyperglycemia, with long-term current use of insulin: Code(s): E11.65 - Type 2 diabetes mellitus with hyperglycemia; Z79.4 - detention (current) use of insulin Status: Acute (7) Chronic respiratory failure with hypoxia: Code(s): J96.11 - Chronic respiratory failure with hypoxia Status: Acute Plan Patient was having hallucinations which were likely due to the UTI causing some degree of encephalopathy/confusion the setting of patient with mild dementia. He the patient's mentation has improved this morning and she is no longer hallucinating. She received empiric antibiotic therapy with Rocephin in the ER. Prior urine cultures were reviewed and although she does have history of bacteria that is resistant to multiple antibiotics her cultures he he have in the past been he sensitive to Rocephin will continue Rocephin and await urine cultures. Imaging demonstrated pancreatic lesion. She is not having any abdominal symptoms he in the area of the pancreas. She could have outpatient follow-up regarding he the lesion. The patient is reporting lower abdominal pain in the setting allowed enlarging he ovarian mass I will order. The patient has diabetes mellitus with hyperglycemia. Will resume patient's home Lantus and oral hypoglycemic agents but will decrease by he he 10%. Given hospitalization. The patient did not receive her evening Lantus last night so I will give a partial dose this a.m.. Patient's respiratory status and kidney function are stable. Will continue supplemental mask he can and p.r.n. treatment. We will also monitor urine output he and electrolytes. Currently electrolyte panel was stable. Remainder of patient's home meds will be reviewed and reconciled as appropriate. Quality VTE Prophylaxis VTE prophylaxis: mechanical ordered (SCDs) Hospitalist MIPS Advance Care Plan I have confirmed that the patient's Advanced Care Plan is present, code status is documented, or surrogate decision maker is listed in patient medical record.: Yes Medication Reconciliation I have utilized all available resources to obtain, update and review the patients current medications (includes all prescriptions, OTC, herbals, cannabis, and nutritional supplements).: Yes
[2025-01-06] MEDS: traMADol HCL (*CRX) 50 MG TABLET PO (05:17)
[2025-01-06] MEDS: FLUTICASONE/UMECLIDIN/VILANTER 100-62.5-25 MCG ELLIPTA 1 PUFF INHALATION (07:40)
[2025-01-06 08:22] LABS: Glucose Point of Care 245 mg/dl (65-105)
[2025-01-06] MEDS: glipiZIDE 5 MG TABLET 10 MG PO (08:28)
[2025-01-06] MEDS: LORATADINE 10 MG TABLET PO (08:29)
[2025-01-06] MEDS: SITagliptin PHOSPHATE 100 MG TABLET PO (08:29)
[2025-01-06] MEDS: DONEPEZIL HCL 5 MG TABLET 10 MG PO (08:29)
[2025-01-06] MEDS: PARoxetine 20 MG TABLET 60 MG PO (08:29)
[2025-01-06] MEDS: ALPRAZolam (*CRX) 0.5 MG TABLET 1 MG PO ×2 (08:29→16:53)
[2025-01-06] MEDS: ASPIRIN 81 MG ENTERIC TABLET PO (08:29)
[2025-01-06] MEDS: guaiFENesin 12 HR 600 MG TABCR PO ×2 (08:30→20:40)
[2025-01-06] MEDS: PANTOPRAZOLE 40 MG TABLET PO (08:30)
[2025-01-06] MEDS: carvediloL 25 MG TABLET PO ×2 (08:30→20:41)
[2025-01-06 11:48] LABS: Glucose Point of Care 226 mg/dl (65-105)
[2025-01-06] MEDS: FLUTICASONE PROPIONATE 0.05% NA SPR 16 GM BTL (*BKC) 1 SPRAY NASAL ×2 (12:58→21:20)
[2025-01-06] MEDS: EUCERIN CREAM 120 GM JAR 1 APPLIC TOPICAL (12:58)
[2025-01-06] MEDS: INSULIN ASPART (*BKC) 100 UNITS/ML SUB-Q (13:00)
[2025-01-06] MEDS: SODIUM CHLORIDE 0.9% IV 1,000 ML 100 ML IV CONT (13:01)
[2025-01-06] MEDS: INSULIN GLARGINE (*BKC) 100 UNITS/ML 10 UNITS SUB-Q (13:03)
[2025-01-06 16:31] LABS: Glucose Point of Care 169 mg/dl (65-105)
--- NOTE | 2025-01-06 18:50 | PM.IMPN ---
Progress Note: A&P Assessment and Plan (1) UTI (urinary tract infection): Code(s): N39.0 - Urinary tract infection, site not specified Status: Acute Assessment and Plan: Continue Ceftiraxone (2) Hallucinations: Code(s): R44.3 - Hallucinations, unspecified Status: Acute Assessment and Plan: Likely delirium 2/2 UTI --Monitor for resolution --Further workup if continue (3) Right ovarian enlargement: Code(s): N83.8 - Other noninflammatory disorders of ovary, fallopian tube and broad ligament Status: Acute Assessment and Plan: Abdominal and TV ultrasound May need gynecology consult vs outpatient follow up (4) AMS (altered mental status): Code(s): R41.82 - Altered mental status, unspecified Status: Acute Assessment and Plan: See hallucinations Delirium as noted Time Spent With Patient Time: 56 minutes Subjective Date/time seen: 01/06/25 09:20 Interval history: Agree with H&P this morning. She reports dysuria to me. Hallucinations as noted in H&P. Reports right abdominal pain for awhile, more than a month or two. Discussed transvaginal ultrasound with abdominal ultrasound and she preferred to have both done at the same time to evaluate right ovarian enlargement Blood sugars controlled Exam Narrative: General - Awake and alert. No acute distress Eyes - PERRLA, EOM intact ENT - No thrush, No erythema Neck - No noticeable or palpable swelling Lymph Nodes - No lymphadenopathy Cardiovascular - RRR no m/r/g, no JVD Lungs: Clear to auscultation, No wheezing, use of accessory muscles, no crackles Skin - Skin warm and dry, no wounds or rashes Abdomen - Normal bowel sounds, abdomen soft and minimal discomfort right abdomen Extremities - No edema, cyanosis or clubbing Musculoskeletal - 5/5 strength, normal range of motion, no swollen or erythematous joints. Neurological ? Alert and oriented x 3, mild confusion, CN 2-12 grossly intact. Psych: Normal mood, pleasant Objective Data Vital Signs Vital Signs: Vital Signs - 24 hr 01/05/25 18:55 01/05/25 19:03 01/05/25 21:37 Temperature 98.1 F 97.9 F 97.2 F L Pulse Rate 79 80 93 Respiratory Rate 16 18 18 Blood Pressure 157/82 H 182/91 H 140/60 Pulse Oximetry 97 99 95 Oxygen Delivery 01/05/25 21:38 01/06/25 04:00 01/06/25 05:32 Temperature 97.3 F L Pulse Rate 86 82 Respiratory Rate 18 Blood Pressure 153/83 H Pulse Oximetry 98 Oxygen Delivery Room Air 01/06/25 07:44 01/06/25 08:00 01/06/25 08:30 Temperature Pulse Rate 72 80 Respiratory Rate 14 Blood Pressure Pulse Oximetry Oxygen Delivery Room Air 01/06/25 14:00 Temperature 98.1 F Pulse Rate 78 Respiratory Rate 18 Blood Pressure 136/61 Pulse Oximetry 95 Oxygen Delivery Intake/Output Intake/Output: Intake & Output 01/03/25 01/04/25 01/05/25 01/06/25 23:59 23:59 23:59 23:59 Intake Total 50 2089 Output Total 50 Balance 0 2089 Meds/Results Medications: Active Medications Generic Name Dose Route Start Last Admin Trade Name Freq PRN Reason Stop Dose Admin Acetaminophen 650 mg 01/05/25 20:16 Acetaminophen 325 Mg Tablet PO Q4H PRN Mild Pain (1-3) or Fever Albuterol/Ipratropium 3 ml 01/06/25 03:31 Ipratropium 0.5 Mg/Albuterol Sulfate 2.5 Mg Ampul.Neb 3 Ml INHALATION Q6H PRN Dyspnea Alprazolam 0.75 mg 01/06/25 03:30 01/06/25 04:17 Alprazolam (*Crx) 0.25 Mg Tablet PO 0.75 mg HS SADI Administration Alprazolam 1 mg 01/06/25 09:00 01/06/25 16:53 Alprazolam (*Crx) 0.5 Mg Tablet PO 1 mg BID SADI Administration Artificial Tears 1 drop 01/06/25 03:31 Artificial Tears Ophth Soln 15 Ml Bottle EACH EYE QID PRN Dry Eye(S) Aspirin 81 mg 01/06/25 09:00 01/06/25 08:29 Aspirin 81 Mg Enteric Tablet PO 81 mg DAILY SADI Administration Buspirone HCl 20 mg 01/06/25 03:30 01/06/25 16:54 Buspirone Hcl 10 Mg Tablet PO 20 mg TID SADI Administration Calcium Carbonate 200 mg 01/05/25 20:17 Calcium Carbonate (Tums) 500 Mg (200 Mg Elemental) PO Q6H PRN Indigestion Carvedilol 25 mg 01/06/25 09:00 01/06/25 08:30 Carvedilol 25 Mg Tablet PO 25 mg Q12HR SADI Administration Dextrose 12.5 gm 01/05/25 20:19 Dextrose 50% 25 Gm/50 Ml Syringe IV PUSH PRN PRN Hypoglycemia Protocol Donepezil HCl 10 mg 01/06/25 09:00 01/06/25 08:29 Donepezil Hcl 5 Mg Tablet PO 10 mg DAILY SADI Administration Fluticasone Propionate 1 spray 01/06/25 09:00 01/06/25 12:58 Fluticasone Propionate 0.05% Na Spr 16 Gm Btl (*Bkc) NASAL 1 spray Q12HR SADI Administration Fluticasone/Umeclidinium/Vilanterol 1 puff 01/06/25 08:00 01/06/25 07:40 Fluticasone/Umeclidin/Vilanter 100-62.5-25 Mcg Ellipta INHALATION 1 puff DAILYRT SADI Administration Glipizide 10 mg 01/06/25 07:30 01/06/25 08:28 Glipizide 5 Mg Tablet PO 10 mg DAILY@0730 SDAI Administration Glucagon 1 mg 01/05/25 20:19 Glucagon For Inj 1 Mg Vial IM PRN PRN Hypoglycemia Protocol Glucose 15 gm 01/05/25 20:19 Glucose Oral Gel 15 Gm Of Glucse In 37.5 Gm Tube PO PRN PRN Hypoglycemia Protocol Guaifenesin 600 mg 01/06/25 09:00 01/06/25 08:30 Guaifenesin 12 Hr 600 Mg Tabcr PO 600 mg Q12HR SADI Administration Hydralazine HCl 10 mg 01/05/25 20:20 Hydralazine Hcl 20 Mg/Ml Vial IV PUSH Q6H PRN SBP greater than 180 Hydrocortisone 1 applic 01/06/25 03:31 Hydrocortisone 1% 30 Gm Cream TOPICAL Q12HR PRN itching Ceftriaxone Sodium 1 gm in 50 mls @ 100 mls/hr 01/06/25 16:00 01/06/25 16:53 Rocephin 1 Gm/Ns 50 Ml IVPB 100 mls/hr Q24H SADI Administration Dextrose 1,000 mls @ 100 mls/hr 01/05/25 20:19 Dextrose 5% 1,000 Ml IVPB PRN PRN Hypoglycemia Protocol Insulin Aspart 3 - 6 units 01/06/25 08:00 01/06/25 16:54 Insulin Aspart (*Bkc) 100 Units/Ml SUB-Q Not Given TIDWM [facility] Protocol Insulin Glargine 45 units 01/06/25 21:00 Insulin Glargine (*Bkc) 100 Units/Ml SUB-Q HS [facility] Loratadine 10 mg 01/06/25 09:00 01/06/25 08:29 Loratadine 10 Mg Tablet PO 10 mg QAM SDAI Administration Montelukast Sodium 10 mg 01/06/25 21:00 Montelukast Sodium 10 Mg Tablet PO HS [facility] Multi-Ingred Cream/Lotion/Oil/Oint 1 applic 01/06/25 09:00 01/06/25 12:58 Eucerin Cream 120 Gm Jar TOPICAL 1 applic DAILY SADI Administration Ondansetron HCl 4 mg 01/05/25 20:17 Ondansetron Inj 4 Mg/2 Ml Vial IV PUSH Q6H PRN Nausea And Vomiting Pantoprazole Sodium 40 mg 01/06/25 09:00 01/06/25 08:30 Pantoprazole 40 Mg Tablet PO 40 mg DAILY SADI Administration Paroxetine HCl 60 mg 01/06/25 09:00 01/06/25 08:29 Paroxetine 20 Mg Tablet PO 60 mg DAILY SADI Administration Polyethylene Glycol 17 gm 01/06/25 03:31 Polyethylene Glycol 3350 17 Gm Powd.Pack PO BID PRN Constipation Sitagliptin Phosphate 100 mg 01/06/25 09:00 01/06/25 08:29 Sitagliptin Phosphate 100 Mg Tablet PO 100 mg QAM SADI Administration Tramadol HCl 50 mg 01/06/25 03:31 01/06/25 05:17 Tramadol Hcl (*Crx) 50 Mg Tablet PO 50 mg Q6H PRN Administration Pain 4-10 Radiology Results: ITS Impressions Chest X-Ray 01/05/25 13:01 IMPRESSION: No focal infiltrate or effusion. Head CT 01/05/25 14:21 Impression: No acute intracranial hemorrhage or suspicious mass effect. 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 No acute fractures. Interval enlargement of a focus of decreased attenuation within the body of the pancreas when compared with multiple prior studies with atrophy of the tail of the pancreas. Follow-up examination (nonemergently) with contrast-enhanced MRI/MRCP with pancreatic mass protocol is recommended. Interval enlargement of the right ovary, an abnormal finding in a patient of this age, for which focused ultrasound (nonemergently) may be performed. Pelvis Ultrasound 01/06/25 17:26 IMPRESSION: Nonvisualization of the uterus and ovaries. Labs Labs: Laboratory Results - last 24 hr 01/06/25 01/06/25 01/06/25 07:47 11:44 16:24 POC Capillary Glucose 245 H 226 H 169 H
[2025-01-06] MEDS: MONTELUKAST SODIUM 10 MG TABLET PO (20:41)
[2025-01-06 21:04] LABS: Glucose Point of Care 280 mg/dl (65-105)
[2025-01-06] MEDS: INSULIN GLARGINE (*BKC) 100 UNITS/ML 45 UNITS SUB-Q (21:12)
[2025-01-07] VITALS (12 sets, daily range): BP systolic 146–157; BP diastolic 67–82; PULSE 73–85; RESP 18–22; TEMP 36.1–36.9; O2SAT 92–96
[2025-01-07 07:42] LABS: Glucose Point of Care 172 mg/dl (65-105)
[2025-01-07 08:01] LABS: Hematocrit 35.5 % (37.0-47.0); Hemoglobin 10.7 g/dL (12.0-15.0); Mean Corpuscular HGB Conc 30.1 g/dl (32-36); Mean Corpuscular Volume 86.2 fl (80-100); Mean Platelet Volume 10.3 fl (7.4-10.4); Platelet Count Result 231 k/mm3 (150-375); Red Blood Count 4.12 M/mm3 (4.2-5.4); Red Cell Distribution Width 14.8 % (11.5-14.5); White Blood Count 8.3 K/mm3 (4.5-10.0)
[2025-01-07] MEDS: glipiZIDE 5 MG TABLET 10 MG PO (08:12)
[2025-01-07] MEDS: carvediloL 25 MG TABLET PO ×2 (08:13→21:29)
[2025-01-07] MEDS: SITagliptin PHOSPHATE 100 MG TABLET PO (08:13)
[2025-01-07] MEDS: PANTOPRAZOLE 40 MG TABLET PO (08:13)
[2025-01-07] MEDS: ALPRAZolam (*CRX) 0.5 MG TABLET 1 MG PO ×2 (08:13→17:57)
[2025-01-07] MEDS: DONEPEZIL HCL 5 MG TABLET 10 MG PO (08:13)
[2025-01-07] MEDS: ASPIRIN 81 MG ENTERIC TABLET PO (08:13)
[2025-01-07] MEDS: busPIRone HCL 10 MG TABLET 20 MG PO ×3 (08:13→17:57)
[2025-01-07] MEDS: LORATADINE 10 MG TABLET PO (08:13)
[2025-01-07] MEDS: guaiFENesin 12 HR 600 MG TABCR PO ×2 (08:13→21:29)
[2025-01-07] MEDS: PARoxetine 20 MG TABLET 60 MG PO (08:13)
[2025-01-07] MEDS: FLUTICASONE PROPIONATE 0.05% NA SPR 16 GM BTL (*BKC) 1 SPRAY NASAL (08:16)
[2025-01-07] MEDS: EUCERIN CREAM 120 GM JAR 1 APPLIC TOPICAL (08:16)
[2025-01-07 08:23] LABS: Alanine Aminotransferase 23 U/L (6-35); Albumin Level 3.6 g/dL (3.5-5.1); Alkaline Phosphatase 116 U/L (38-126); Anion Gap 5 mmol/L (4-12); Aspartate Amino Transferase 26 U/L (14-36); Bilirubin,Total 0.4 mg/dL (0.2-1.3); Blood Urea Nitrogen 22 mg/dL (7-17); Calcium 9.5 mg/dL (8.4-10.2); Carbon Dioxide 29 mmol/L (22-30); Chloride 105 mmol/L (98-107); Estimated CRCL calculation 30 ml/min; Estimated Glomerular Filt Rate 35; Glucose 165 mg/dL (65-110); Potassium 4.3 mmol/L (3.4-5.0); Sodium 139 mmol/L (137-145)
[2025-01-07] MEDS: FLUTICASONE/UMECLIDIN/VILANTER 100-62.5-25 MCG ELLIPTA 1 PUFF INHALATION (08:42)
--- NOTE | 2025-01-07 08:42 | P.CDI_ITS ---
CDI Query Clarification Request Please clarify type of encephalopathy, if known: ? Metabolic ? Toxic ? Hepatic ? Hypertensive ? Anoxic/Hypoxic ? Uremic ? Wernicke ? Other ? Unknown The medical chart reflects the following: Assessment and plan (1) Hallucinations: Code(s): R44.3 - Hallucinations, unspecified Status: Acute (2) Urinary tract infection: Qualifiers: Urinary tract infection type: acute cystitis Hematuria presence: without hematuria Qualified Code(s): N30.00 - Acute cystitis without hematuria Code(s): N39.0 - Urinary tract infection, site not specified Status: Acute (3) Dementia: Qualifiers: Dementia type: unspecified type Dementia severity: mild Dementia behavioral or psychological symptom: unspecified whether behavioral, psychotic, or mood disturbance or anxiety Qualified Code(s): F03.A0 - Unspecified dementia, mild, without behavioral disturbance, psychotic disturbance, mood disturbance, and anxiety Code(s): F03.90 - Unspecified dementia, unspecified severity, without behavioral distu rbance, psychotic disturbance, mood disturbance, and anxiety Plan Patient was having hallucinations which were likely due to the UTI causing some degree of encephalopathy/confusion the setting of patient with mild dementia. He the patient's mentation has improved this morning and she is no longer hallucinating. She received empiric antibiotic therapy with Rocephin in the ER. Prior urine cultures were reviewed and although she does have history of bacteria that is resistant to multiple antibiotics her cultures he he have in the past been he sensitive to Rocephin will continue Rocephin and await urine cultures. Imaging demonstrated pancreatic lesion. RLX UR CX DUE TO ABN UA R82.90 Preliminary 01/06/25-2007 Q Organism 1 Gram negative bacilli isolated <Karen Peña RN - Last Filed: 01/07/25 08:46> Clarified Diagnosis Clarified Diagnosis: Likely altered mental status, metabolic, but still unable to be determined <Caroline Wise APRN - Last Filed: 01/07/25 16:16>
[2025-01-07] MEDS: CALCIUM CARBONATE (TUMS) 500 MG (200 MG ELEMENTAL) PO (11:33)
[2025-01-07 11:40] LABS: Glucose Point of Care 239 mg/dl (65-105)
[2025-01-07] MEDS: INSULIN ASPART (*BKC) 100 UNITS/ML SUB-Q ×2 (13:07→17:58)
--- NOTE | 2025-01-07 15:53 | PM.IMPN ---
Progress Note: A&P Assessment and Plan (1) UTI (urinary tract infection): Code(s): N39.0 - Urinary tract infection, site not specified Status: Acute Assessment and Plan: Continue Ceftiraxone (2) Hallucinations: Code(s): R44.3 - Hallucinations, unspecified Status: Acute Assessment and Plan: Likely delirium 2/2 UTI, toxic/metabolic --Monitor for resolution --Further workup if continue (3) Right ovarian enlargement: Code(s): N83.8 - Other noninflammatory disorders of ovary, fallopian tube and broad ligament Status: Acute Assessment and Plan: Abdominal and TV ultrasound TV US (4) AMS (altered mental status): Code(s): R41.82 - Altered mental status, unspecified Status: Acute Assessment and Plan: See hallucinations Delirium as noted (5) Pancreatic mass: Code(s): K86.89 - Other specified diseases of pancreas Status: Acute Assessment and Plan: Increased size of pancreatic mass from prior. 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 No acute fractures. Interval enlargement of a focus of decreased attenuation within the body of the pancreas when compared with multiple prior studies with atrophy of the tail of the pancreas. Follow-up examination (nonemergently) with contrast-enhanced MRI/MRCP with pancreatic mass protocol is recommended. Interval enlargement of the right ovary, an abnormal finding in a patient of this age, for which focused ultrasound (nonemergently) may be performed (6) SHAWN (acute kidney injury): Code(s): N17.9 - Acute kidney failure, unspecified Status: Acute Assessment and Plan: Mild SHAWN likely 2/2 IV contrast, UTI, or mild dehydration --Urine Sodium/creatinine --follow creatinine Time Spent With Patient Time: 57 minutes Subjective Date/time seen: 01/07/25 15:53 Interval history: Sleepy, woke up for some questions 01/05 Urine culture grew E coli sensitive to Ceftriaxone but several antibiotics resistant Reports right abdominal pain for awhile, more than a month or two. Blood sugars above goal, 120-280 Creatinine more elevated Review of Systems Review of Systems: 12 systems were reviewed with pertinent positives and negatives per HPI. Except as documented in the HPI, all other systems were reviewed and are negative. Exam Narrative: General - Awake and alert but falls asleep easily. No acute distress Eyes - PERRLA, EOM intact ENT - No thrush, No erythema Neck - No noticeable or palpable swelling Lymph Nodes - No lymphadenopathy Cardiovascular - RRR no m/r/g, no JVD Lungs: Clear to auscultation, No wheezing, use of accessory muscles, no crackles Skin - Skin warm and dry, no wounds or rashes Abdomen - Normal bowel sounds, abdomen soft and minimal discomfort right abdomen Extremities - No edema, cyanosis or clubbing Musculoskeletal - 4/5 strength, normal range of motion, no swollen or erythematous joints. Neurological ? Alert and oriented x 3, mild confusion, CN 2-12 grossly intact. Psych: Normal mood, pleasant Objective Data Vital Signs Vital Signs: Vital Signs - 24 hr 01/06/25 16:00 01/06/25 20:00 01/06/25 20:00 Temperature Pulse Rate 82 82 81 Respiratory Rate 20 Blood Pressure Pulse Oximetry 96 Oxygen Delivery Room Air 01/06/25 21:32 01/07/25 00:00 01/07/25 04:00 Temperature 97.8 F Pulse Rate 82 85 77 Respiratory Rate 20 Blood Pressure 134/53 L Pulse Oximetry 96 Oxygen Delivery 01/07/25 06:00 01/07/25 08:00 01/07/25 08:00 Temperature 97.0 F L Pulse Rate 79 82 Respiratory Rate 20 Blood Pressure 146/67 H Pulse Oximetry 96 Oxygen Delivery Room Air 01/07/25 08:13 01/07/25 08:42 01/07/25 08:42 Temperature Pulse Rate 84 81 Respiratory Rate 20 Blood Pressure Pulse Oximetry 94 Oxygen Delivery Room Air 01/07/25 12:00 01/07/25 13:57 Temperature 97.4 F L Pulse Rate 75 76 Respiratory Rate 18 Blood Pressure 155/82 H Pulse Oximetry 92 Oxygen Delivery Intake/Output Intake/Output: Intake & Output 01/04/25 01/05/25 01/06/25 01/07/25 23:59 23:59 23:59 23:59 Intake Total 50 2140 576 Output Total 50 750 Balance 0 2140 -174 Meds/Results Medications: Active Medications Generic Name Dose Route Start Last Admin Trade Name Freq PRN Reason Stop Dose Admin Acetaminophen 650 mg 01/05/25 20:16 Acetaminophen 325 Mg Tablet PO Q4H PRN Mild Pain (1-3) or Fever Albuterol/Ipratropium 3 ml 01/06/25 03:31 Ipratropium 0.5 Mg/Albuterol Sulfate 2.5 Mg Ampul.Neb 3 Ml INHALATION Q6H PRN Dyspnea Alprazolam 0.75 mg 01/06/25 03:30 01/06/25 20:41 Alprazolam (*Crx) 0.25 Mg Tablet PO 0.75 mg HS SADI Administration Alprazolam 1 mg 01/06/25 09:00 01/07/25 08:13 Alprazolam (*Crx) 0.5 Mg Tablet PO 1 mg BID SADI Administration Artificial Tears 1 drop 01/06/25 03:31 Artificial Tears Ophth Soln 15 Ml Bottle EACH EYE QID PRN Dry Eye(S) Aspirin 81 mg 01/06/25 09:00 01/07/25 08:13 Aspirin 81 Mg Enteric Tablet PO 81 mg DAILY SADI Administration Buspirone HCl 20 mg 01/06/25 03:30 01/07/25 13:07 Buspirone Hcl 10 Mg Tablet PO 20 mg TID SADI Administration Calcium Carbonate 200 mg 01/05/25 20:17 01/07/25 11:33 Calcium Carbonate (Tums) 500 Mg (200 Mg Elemental) PO 200 mg Q6H PRN Administration Indigestion Carvedilol 25 mg 01/06/25 09:00 01/07/25 08:13 Carvedilol 25 Mg Tablet PO 25 mg Q12HR SADI Administration Cephalexin HCl 500 mg 01/07/25 14:00 Cephalexin 500 Mg Capsule PO 01/11/25 21:01 Q12HR SADI Dextrose 12.5 gm 01/05/25 20:19 Dextrose 50% 25 Gm/50 Ml Syringe IV PUSH PRN PRN Hypoglycemia Protocol Donepezil HCl 10 mg 01/06/25 09:00 01/07/25 08:13 Donepezil Hcl 5 Mg Tablet PO 10 mg DAILY SADI Administration Fluticasone Propionate 1 spray 01/06/25 09:00 01/07/25 08:16 Fluticasone Propionate 0.05% Na Spr 16 Gm Btl (*Bkc) NASAL 1 spray Q12HR SADI Administration Fluticasone/Umeclidinium/Vilanterol 1 puff 01/06/25 08:00 01/07/25 08:42 Fluticasone/Umeclidin/Vilanter 100-62.5-25 Mcg Ellipta INHALATION 1 puff DAILYRT SADI Administration Glipizide 10 mg 01/06/25 07:30 01/07/25 08:12 Glipizide 5 Mg Tablet PO 10 mg DAILY@0730 SADI Administration Glucagon 1 mg 01/05/25 20:19 Glucagon For Inj 1 Mg Vial IM PRN PRN Hypoglycemia Protocol Glucose 15 gm 01/05/25 20:19 Glucose Oral Gel 15 Gm Of Glucse In 37.5 Gm Tube PO PRN PRN Hypoglycemia Protocol Guaifenesin 600 mg 01/06/25 09:00 01/07/25 08:13 Guaifenesin 12 Hr 600 Mg Tabcr PO 600 mg Q12HR SADI Administration Hydralazine HCl 10 mg 01/05/25 20:20 Hydralazine Hcl 20 Mg/Ml Vial IV PUSH Q6H PRN SBP greater than 180 Hydrocortisone 1 applic 01/06/25 03:31 Hydrocortisone 1% 30 Gm Cream TOPICAL Q12HR PRN itching Dextrose 1,000 mls @ 100 mls/hr 01/05/25 20:19 Dextrose 5% 1,000 Ml IVPB PRN PRN Hypoglycemia Protocol Insulin Aspart 3 - 6 units 01/06/25 08:00 01/07/25 13:07 Insulin Aspart (*Bkc) 100 Units/Ml SUB-Q 3 units TIDWM SADI Administration Protocol Insulin Glargine 45 units 01/06/25 21:00 01/06/25 21:12 Insulin Glargine (*Bkc) 100 Units/Ml SUB-Q 45 units HS SADI Administration Loratadine 10 mg 01/06/25 09:00 01/07/25 08:13 Loratadine 10 Mg Tablet PO 10 mg QAM SADI Administration Montelukast Sodium 10 mg 01/06/25 21:00 01/06/25 20:41 Montelukast Sodium 10 Mg Tablet PO 10 mg HS SADI Administration Multi-Ingred Cream/Lotion/Oil/Oint 1 applic 01/06/25 09:00 01/07/25 08:16 Eucerin Cream 120 Gm Jar TOPICAL 1 applic DAILY SADI Administration Ondansetron HCl 4 mg 05/27/25 20:17 Ondansetron Inj 4 Mg/2 Ml Vial IV PUSH Q6H PRN Nausea And Vomiting Pantoprazole Sodium 40 mg 01/06/25 09:00 01/07/25 08:13 Pantoprazole 40 Mg Tablet PO 40 mg DAILY SADI Administration Paroxetine HCl 60 mg 01/06/25 09:00 01/07/25 08:13 Paroxetine 20 Mg Tablet PO 60 mg DAILY SADI Administration Polyethylene Glycol 17 gm 01/06/25 03:31 Polyethylene Glycol 3350 17 Gm Powd.Pack PO BID PRN Constipation Sitagliptin Phosphate 100 mg 01/06/25 09:00 01/07/25 08:13 Sitagliptin Phosphate 100 Mg Tablet PO 100 mg QAM SADI Administration Tramadol HCl 50 mg 01/06/25 03:31 01/06/25 05:17 Tramadol Hcl (*Crx) 50 Mg Tablet PO 50 mg Q6H PRN Administration Pain 4-10 Radiology Results: ITS Impressions Chest X-Ray 01/05/25 13:01 IMPRESSION: No focal infiltrate or effusion. Head CT 01/05/25 14:21 Impression: No acute intracranial hemorrhage or suspicious mass effect. 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 No acute fractures. Interval enlargement of a focus of decreased attenuation within the body of the pancreas when compared with multiple prior studies with atrophy of the tail of the pancreas. Follow-up examination (nonemergently) with contrast-enhanced MRI/MRCP with pancreatic mass protocol is recommended. Interval enlargement of the right ovary, an abnormal finding in a patient of this age, for which focused ultrasound (nonemergently) may be performed. Pelvis Ultrasound 01/06/25 17:26 IMPRESSION: Nonvisualization of the uterus and ovaries. Labs Labs: Laboratory Results - last 24 hr 01/06/25 01/06/25 01/07/25 16:24 20:18 07:25 WBC 8.3 RBC 4.12 L Hgb 10.7 L Hct 35.5 L MCV 86.2 MCH 26.0 MCHC 30.1 L RDW 14.8 H Plt Count 231 MPV 10.3 Sodium 139 Potassium 4.3 Chloride 105 Carbon Dioxide 29 Anion Gap 5 BUN 22 H Creatinine 1.45 H Estim Creat Clear Calc 30 Estimated GFR 35 L Glucose 165 H POC Capillary Glucose 169 H 280 H 172 H Calcium 9.5 Total Bilirubin 0.4 AST 26 ALT 23 Alkaline Phosphatase 116 Total Protein 7.0 Albumin 3.6 01/07/25 11:33 WBC RBC Hgb Hct MCV MCH MCHC RDW Plt Count MPV Sodium Potassium Chloride Carbon Dioxide Anion Gap BUN Creatinine Estim Creat Clear Calc Estimated GFR Glucose POC Capillary Glucose 239 H Calcium Total Bilirubin AST ALT Alkaline Phosphatase Total Protein Albumin Quality VTE Prophylaxis VTE prophylaxis: mechanical ordered (SCDs) Hospitalist MIPS Advance Care Plan I have confirmed that the patient's Advanced Care Plan is present, code status is documented, or surrogate decision maker is listed in patient medical record.: Yes Medication Reconciliation I have utilized all available resources to obtain, update and review the patients current medications (includes all prescriptions, OTC, herbals, cannabis, and nutritional supplements).: Yes
[2025-01-07 16:26] LABS: Glucose Point of Care 235 mg/dl (65-105)
[2025-01-07 17:33] LABS: Anion Gap 4 mmol/L (4-12); Blood Urea Nitrogen 22 mg/dL (7-17); Calcium 9.2 mg/dL (8.4-10.2); Carbon Dioxide 27 mmol/L (22-30); Chloride 105 mmol/L (98-107); Estimated CRCL calculation 35 ml/min; Estimated Glomerular Filt Rate 41; Glucose 199 mg/dL (65-110); Potassium 4.2 mmol/L (3.4-5.0); Sodium 136 mmol/L (137-145)
[2025-01-07] MEDS: CEPHALEXIN 500 MG CAPSULE PO ×2 (17:57→21:29)
[2025-01-07] MEDS: SODIUM CHLORIDE 0.9% IV 1,000 ML 100 ML IV CONT (18:03)
[2025-01-07 20:10] LABS: Glucose Point of Care 142 mg/dl (65-105)
[2025-01-07] MEDS: INSULIN GLARGINE (*BKC) 100 UNITS/ML 45 UNITS SUB-Q (21:28)
[2025-01-07] MEDS: ALPRAZolam (*CRX) 0.25 MG TABLET 0.75 MG PO (21:29)
[2025-01-07] MEDS: MONTELUKAST SODIUM 10 MG TABLET PO (21:29)
[2025-01-08] VITALS (11 sets, daily range): BP systolic 146–160; BP diastolic 63–73; PULSE 68–83; RESP 18–20; TEMP 36.1–36.4; O2SAT 95–97
[2025-01-08 02:32] LABS: Add Urine Microscopic? YES; Appearance Urine Clear (Clear); Bacteria Urine None Seen /hpf; Bilirubin Urine Negative (Negative); Blood Urine Negative (Negative); Color Urine Yellow (Yellow); Glucose Urine UA Negative (Negative); Ketones Urine Negative (Negative); Leukocyte Esterase Ur 2+ LEU/UL (Negative); Nitrate Urine Negative (Negative); Non Pathogenic Casts 0-2; Protein Urine Negative (Negative); RBC Urine 0-2 /hpf (0-2); Specific Grav Ur 1.009 (1.001-1.035); Squamous Epithelial Cell Urine None Seen /hpf (Few); Urobilinogen Urine 0.2 mg/dL (<2.0); pH Urine 5.5 (5.0-9.0)
[2025-01-08 02:33] LABS: Creatinine Urine 46.7 mg/dL; Total Protein Urine Random 10 mg/dL; Ur Ttl Prot Creatinine Ratio 0.21 mg/mg (0-0.20)
[2025-01-08 02:50] LABS: Creatinine Urine 45.4 mg/dL
[2025-01-08 03:13] LABS: Sodium Urine Random 54 meq/L
[2025-01-08] MEDS: SODIUM CHLORIDE 0.9% IV 1,000 ML 100 ML IV CONT (04:29)
[2025-01-08 06:26] LABS: Basophils Percent Auto 0.5 % (0.2-1.2); Eosinophils Absolute Auto 0.3 K/mm3 (0-0.3); Eosinophils Percent Auto 3.5 % (0-4.4); Hemoglobin 10.1 g/dL (12.0-15.0); Immature Granulocyte Absolute 0.02 K/mm3 (0.00-0.031); Immature Granulocyte Percent A 0.2 % (0-0.5); Lymphocytes Absolute Auto 1.97 K/mm3 (0.9-3.2); Lymphocytes Percent Auto 23.6 % (18.3-44.2); Mean Corpuscular HGB Conc 30.6 g/dl (32-36); Mean Corpuscular Hemoglobin 26.8 pg (26-34); Mean Corpuscular Volume 87.5 fl (80-100); Mean Platelet Volume 9.6 fl (7.4-10.4); Monocytes Absolute Auto 0.7 K/mm3 (0.1-0.6); Monocytes Percent Auto 8.2 % (2.6-8.5); Neutrophils Absolute Auto 5.3 K/mm3 (1.3-6.7); Platelet Count Result 205 k/mm3 (150-375); Red Blood Count 3.77 M/mm3 (4.2-5.4); Red Cell Distribution Width 14.6 % (11.5-14.5); White Blood Count 8.3 K/mm3 (4.5-10.0)
[2025-01-08] MEDS: glipiZIDE 5 MG TABLET 10 MG PO (07:42)
[2025-01-08 07:46] LABS: Glucose Point of Care 146 mg/dl (65-105)
[2025-01-08] MEDS: PARoxetine 20 MG TABLET 60 MG PO (09:57)
[2025-01-08] MEDS: LORATADINE 10 MG TABLET PO (09:57)
[2025-01-08] MEDS: CEPHALEXIN 500 MG CAPSULE PO ×2 (09:57→20:35)
[2025-01-08] MEDS: busPIRone HCL 10 MG TABLET 20 MG PO ×2 (09:57→17:58)
[2025-01-08] MEDS: ALPRAZolam (*CRX) 0.5 MG TABLET 1 MG PO ×2 (09:57→17:58)
[2025-01-08] MEDS: carvediloL 25 MG TABLET PO ×2 (09:57→20:35)
[2025-01-08] MEDS: FLUTICASONE PROPIONATE 0.05% NA SPR 16 GM BTL (*BKC) 1 SPRAY NASAL ×2 (09:57→20:35)
[2025-01-08] MEDS: SITagliptin PHOSPHATE 100 MG TABLET PO (09:57)
[2025-01-08] MEDS: DONEPEZIL HCL 5 MG TABLET 10 MG PO (09:57)
[2025-01-08] MEDS: guaiFENesin 12 HR 600 MG TABCR PO ×2 (09:58→20:35)
[2025-01-08] MEDS: EUCERIN CREAM 120 GM JAR 1 APPLIC TOPICAL (09:58)
[2025-01-08] MEDS: ASPIRIN 81 MG ENTERIC TABLET PO (09:58)
[2025-01-08] MEDS: PANTOPRAZOLE 40 MG TABLET PO (09:58)
--- NOTE | 2025-01-08 10:13 | P.PNIM_ITS ---
Progress Note: A&P Assessment and Plan (1) UTI (urinary tract infection): Code(s): N39.0 - Urinary tract infection, site not specified Status: Acute Assessment and Plan: Started on ceftriaxone, growing E coli changed to Keflex since sensitive (2) Hallucinations: Code(s): R44.3 - Hallucinations, unspecified Status: Acute Assessment and Plan: Likely delirium 2/2 UTI, toxic/metabolic --reports no episodes overnight, remembers having hallucinations --Further workup if continue (3) Right ovarian enlargement: Code(s): N83.8 - Other noninflammatory disorders of ovary, fallopian tube and broad ligament Status: Acute Assessment and Plan: Unable to visualize with abdominal ultrasound. Discussed with ultrasound and unable to complete transvaginal ultrasound because patient was having hallucinations. Also spoke with radiologist and would on likely be visualized with transvaginal ultrasound --ordered MRI and pending (4) AMS (altered mental status): Code(s): R41.82 - Altered mental status, unspecified Status: Acute Assessment and Plan: See hallucinations Delirium as noted (5) Pancreatic mass: Code(s): K86.89 - Other specified diseases of pancreas Status: Acute Assessment and Plan: Increased size of pancreatic mass from prior. 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 No acute fractures. Interval enlargement of a focus of decreased attenuation within the body of the pancreas when compared with multiple prior studies with atrophy of the tail of the pancreas. Follow-up examination (nonemergently) with contrast-enhanced MRI/MRCP with pancreatic mass protocol is recommended. Interval enlargement of the right ovary, an abnormal finding in a patient of this age, for which focused ultrasound (nonemergently) may be performed --MRCP (6) SHAWN (acute kidney injury): Code(s): N17.9 - Acute kidney failure, unspecified Status: Acute Assessment and Plan: Mild SHAWN likely 2/2 IV contrast, UTI, or mild dehydration --Urine Sodium/creatinine --follow creatinine Time Spent With Patient Time: 52 minutes Subjective Date/time seen: 01/08/25 10:13 Interval history: Vital signs stable Afebrile Blood pressure above goal. MRI pending Hallucinations seem resolved Oriented x4 reports mild pain otherwise normal exam Creatinine last night back to baseline Review of Systems Review of Systems: 12 systems were reviewed with pertinent positives and negatives per HPI. Except as documented in the HPI, all other systems were reviewed and are negative. Exam Narrative: General - Awake and alert. No acute distress Eyes - PERRLA, EOM intact ENT - No thrush, No erythema Neck - No noticeable or palpable swelling Lymph Nodes - No lymphadenopathy Cardiovascular - RRR no m/r/g, no JVD Lungs: Clear to auscultation, No wheezing, use of accessory muscles, no crackles Skin - Skin warm and dry, no wounds or rashes Abdomen - Normal bowel sounds, abdomen soft and nontender Extremities - No edema, cyanosis or clubbing Musculoskeletal - 5/5 strength, normal range of motion, no swollen or erythematous joints. Neurological ? Alert and oriented x 3, CN 2-12 grossly intact. Psych: Normal mood and affect Objective Data Vital Signs Vital Signs: Vital Signs - 24 hr 01/07/25 12:00 01/07/25 13:57 01/07/25 16:00 Temperature 97.4 F L Pulse Rate 75 76 73 Respiratory Rate 18 Blood Pressure 155/82 H Pulse Oximetry 92 Oxygen Delivery 01/07/25 20:00 01/07/25 21:25 01/07/25 21:29 Temperature 98.4 F Pulse Rate 76 74 Respiratory Rate 22 H Blood Pressure 157/70 H Pulse Oximetry 95 95 Oxygen Delivery Room Air 01/08/25 00:00 01/08/25 04:00 01/08/25 06:00 Temperature 97.1 F L Pulse Rate 74 70 76 Respiratory Rate 20 Blood Pressure 160/63 H Pulse Oximetry 95 Oxygen Delivery 01/08/25 09:57 Temperature Pulse Rate 76 Respiratory Rate Blood Pressure Pulse Oximetry Oxygen Delivery Intake/Output Intake/Output: Intake & Output 01/05/25 01/06/25 01/07/25 01/08/25 23:59 23:59 23:59 23:59 Intake Total 50 2140 1366 1350 Output Total 50 2000 200 Balance 0 2140 -634 1150 Meds/Results Medications: Active Medications Generic Name Dose Route Start Last Admin Trade Name Freq PRN Reason Stop Dose Admin Acetaminophen 650 mg 01/05/25 20:16 Acetaminophen 325 Mg Tablet PO Q4H PRN Mild Pain (1-3) or Fever Albuterol/Ipratropium 3 ml 01/06/25 03:31 Ipratropium 0.5 Mg/Albuterol Sulfate 2.5 Mg Ampul.Neb 3 Ml INHALATION Q6H PRN Dyspnea Alprazolam 0.75 mg 01/06/25 03:30 01/07/25 21:29 Alprazolam (*Crx) 0.25 Mg Tablet PO 0.75 mg HS SADI Administration Alprazolam 1 mg 01/06/25 09:00 01/08/25 09:57 Alprazolam (*Crx) 0.5 Mg Tablet PO 1 mg BID SADI Administration Artificial Tears 1 drop 01/06/25 03:31 Artificial Tears Ophth Soln 15 Ml Bottle EACH EYE QID PRN Dry Eye(S) Aspirin 81 mg 01/06/25 09:00 01/08/25 09:58 Aspirin 81 Mg Enteric Tablet PO 81 mg DAILY SADI Administration Buspirone HCl 20 mg 01/06/25 03:30 01/08/25 09:57 Buspirone Hcl 10 Mg Tablet PO 20 mg TID SADI Administration Calcium Carbonate 200 mg 01/05/25 20:17 01/07/25 11:33 Calcium Carbonate (Tums) 500 Mg (200 Mg Elemental) PO 200 mg Q6H PRN Administration Indigestion Carvedilol 25 mg 01/06/25 09:00 01/08/25 09:57 Carvedilol 25 Mg Tablet PO 25 mg Q12HR SADI Administration Cephalexin HCl 500 mg 01/07/25 14:00 01/08/25 09:57 Cephalexin 500 Mg Capsule PO 01/11/25 21:01 500 mg Q12HR SADI Administration Dextrose 12.5 gm 01/05/25 20:19 Dextrose 50% 25 Gm/50 Ml Syringe IV PUSH PRN PRN Hypoglycemia Protocol Donepezil HCl 10 mg 01/06/25 09:00 01/08/25 09:57 Donepezil Hcl 5 Mg Tablet PO 10 mg DAILY SADI Administration Fluticasone Propionate 1 spray 01/06/25 09:00 01/08/25 09:57 Fluticasone Propionate 0.05% Na Spr 16 Gm Btl (*Bkc) NASAL 1 spray Q12HR SADI Administration Fluticasone/Umeclidinium/Vilanterol 1 puff 01/06/25 08:00 01/08/25 07:30 Fluticasone/Umeclidin/Vilanter 100-62.5-25 Mcg Ellipta INHALATION Not Given DAILYRT SADI Glipizide 10 mg 01/06/25 07:30 01/08/25 07:42 Glipizide 5 Mg Tablet PO 10 mg DAILY@0730 SADI Administration Glucagon 1 mg 01/05/25 20:19 Glucagon For Inj 1 Mg Vial IM PRN PRN Hypoglycemia Protocol Glucose 15 gm 01/05/25 20:19 Glucose Oral Gel 15 Gm Of Glucse In 37.5 Gm Tube PO PRN PRN Hypoglycemia Protocol Guaifenesin 600 mg 01/06/25 09:00 01/08/25 09:58 Guaifenesin 12 Hr 600 Mg Tabcr PO 600 mg Q12HR SADI Administration Hydralazine HCl 10 mg 01/05/25 20:20 Hydralazine Hcl 20 Mg/Ml Vial IV PUSH Q6H PRN SBP greater than 180 Hydrocortisone 1 applic 01/06/25 03:31 Hydrocortisone 1% 30 Gm Cream TOPICAL Q12HR PRN itching Dextrose 1,000 mls @ 100 mls/hr 01/05/25 20:19 Dextrose 5% 1,000 Ml IVPB PRN PRN Hypoglycemia Protocol Sodium Chloride 1,000 mls @ 100 mls/hr 01/07/25 16:30 01/08/25 04:29 Normal Saline Iv IV CONT 100 mls/hr .Q10H SADI Administration Insulin Aspart 3 - 6 units 01/06/25 08:00 01/08/25 07:41 Insulin Aspart (*Bkc) 100 Units/Ml SUB-Q Not Given TIDWM [facility] Protocol Insulin Glargine 45 units 01/06/25 21:00 01/07/25 21:28 Insulin Glargine (*Bkc) 100 Units/Ml SUB-Q 45 units HS SADI Administration Loratadine 10 mg 01/06/25 09:00 01/08/25 09:57 Loratadine 10 Mg Tablet PO 10 mg QAM SADI Administration Montelukast Sodium 10 mg 01/06/25 21:00 01/07/25 21:29 Montelukast Sodium 10 Mg Tablet PO 10 mg HS SADI Administration Multi-Ingred Cream/Lotion/Oil/Oint 1 applic 01/06/25 09:00 01/08/25 09:58 Eucerin Cream 120 Gm Jar TOPICAL 1 applic DAILY SADI Administration Ondansetron HCl 4 mg 01/05/25 20:17 Ondansetron Inj 4 Mg/2 Ml Vial IV PUSH Q6H PRN Nausea And Vomiting Pantoprazole Sodium 40 mg 01/06/25 09:00 01/08/25 09:58 Pantoprazole 40 Mg Tablet PO 40 mg DAILY SADI Administration Paroxetine HCl 60 mg 01/06/25 09:00 01/08/25 09:57 Paroxetine 20 Mg Tablet PO 60 mg DAILY SADI Administration Polyethylene Glycol 17 gm 01/06/25 03:31 Polyethylene Glycol 3350 17 Gm Powd.Pack PO BID PRN Constipation Sitagliptin Phosphate 100 mg 01/06/25 09:00 01/08/25 09:57 Sitagliptin Phosphate 100 Mg Tablet PO 100 mg QAM SADI Administration Tramadol HCl 50 mg 01/06/25 03:31 01/06/25 05:17 Tramadol Hcl (*Crx) 50 Mg Tablet PO 50 mg Q6H PRN Administration Pain 4-10 Radiology Results: ITS Impressions Chest X-Ray 01/05/25 13:01 IMPRESSION: No focal infiltrate or effusion. Head CT 01/05/25 14:21 Impression: No acute intracranial hemorrhage or suspicious mass effect. 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 No acute fractures. Interval enlargement of a focus of decreased attenuation within the body of the pancreas when compared with multiple prior studies with atrophy of the tail of the pancreas. Follow-up examination (nonemergently) with contrast-enhanced MRI/MRCP with pancreatic mass protocol is recommended. Interval enlargement of the right ovary, an abnormal finding in a patient of this age, for which focused ultrasound (nonemergently) may be performed. Pelvis Ultrasound 01/06/25 17:26 IMPRESSION: Nonvisualization of the uterus and ovaries. Labs Labs: Laboratory Results - last 24 hr 01/07/25 01/07/25 01/07/25 11:33 16:22 17:11 WBC RBC Hgb Hct MCV MCH MCHC RDW Plt Count MPV Immature Gran % (Auto) Neut % (Auto) Lymph % (Auto) [place] % (Auto) Eos % (Auto) Baso % (Auto) Lymph # (Auto) [place] # (Auto) Eos # (Auto) Baso # (Auto) Abs Immat Gran (auto) Absolute Neuts (auto) Absolute Nucleated RBC Nucleated RBC % Sodium 136 L Potassium 4.2 Chloride 105 Carbon Dioxide 27 Anion Gap 4 BUN 22 H Creatinine 1.25 H Estim Creat Clear Calc 35 Estimated GFR 41 L Glucose 199 H POC Capillary Glucose 239 H 235 H Calcium 9.2 Urine Color Urine Appearance Urine pH Ur Specific [place] Urine Protein Urine Glucose (UA) Urine Ketones Ur Blood (Man) Urine Nitrate Urine Bilirubin Urine Urobilinogen Ur Leukocyte Esterase Urine RBC Urine WBC Ur Squamous Epith Cells Urine Bacteria Urine Casts U Random Total Protein Ur Random Sodium Urine Creatinine Protein/Creat Ratio 2 01/07/25 01/08/25 01/08/25 19:41 02:11 02:12 WBC RBC Hgb Hct MCV MCH MCHC RDW Plt Count MPV Immature Gran % (Auto) Neut % (Auto) Lymph % (Auto) [place] % (Auto) Eos % (Auto) Baso % (Auto) Lymph # (Auto) [place] # (Auto) Eos # (Auto) Baso # (Auto) Abs Immat Gran (auto) Absolute Neuts (auto) Absolute Nucleated RBC Nucleated RBC % Sodium Potassium Chloride Carbon Dioxide Anion Gap BUN Creatinine Estim Creat Clear Calc Estimated GFR Glucose POC Capillary Glucose 142 H Calcium Urine Color Yellow Urine Appearance Clear Urine pH 5.5 Ur Specific [place] 1.009 Urine Protein Negative Urine Glucose (UA) Negative Urine Ketones Negative Ur Blood (Man) Negative Urine Nitrate Negative Urine Bilirubin Negative Urine Urobilinogen 0.2 Ur Leukocyte Esterase 2+ H Urine RBC 0-2 Urine WBC 6-10 H Ur Squamous Epith Cells None seen Urine Bacteria None seen Urine Casts 0-2 U Random Total Protein 10 Ur Random Sodium 54 Urine Creatinine 46.7 Protein/Creat Ratio 2 01/08/25 01/08/25 01/08/25 02:12 06:10 07:38 WBC 8.3 RBC 3.77 L Hgb 10.1 L Hct 33.0 L MCV 87.5 MCH 26.8 MCHC 30.6 L RDW 14.6 H Plt Count 205 MPV 9.6 Immature Gran % (Auto) 0.2 Neut % (Auto) 64.0 Lymph % (Auto) 23.6 [place] % (Auto) 8.2 Eos % (Auto) 3.5 Baso % (Auto) 0.5 Lymph # (Auto) 1.97 [place] # (Auto) 0.7 H Eos # (Auto) 0.3 Baso # (Auto) 0.0 Abs Immat Gran (auto) 0.02 Absolute Neuts (auto) 5.3 Absolute Nucleated RBC 0.000 Nucleated RBC % 0.0 Sodium Potassium Chloride Carbon Dioxide Anion Gap BUN Creatinine Estim Creat Clear Calc Estimated GFR Glucose POC Capillary Glucose 146 H Calcium Urine Color Urine Appearance Urine pH Ur Specific [place] Urine Protein Urine Glucose (UA) Urine Ketones Ur Blood (Man) Urine Nitrate Urine Bilirubin Urine Urobilinogen Ur Leukocyte Esterase Urine RBC Urine WBC Ur Squamous Epith Cells Urine Bacteria Urine Casts U Random Total Protein Ur Random Sodium Urine Creatinine 45.4 Protein/Creat Ratio 2 0.21 H Quality VTE Prophylaxis VTE prophylaxis: mechanical ordered (SCDs) Hospitalist MIPS Advance Care Plan I have confirmed that the patient's Advanced Care Plan is present, code status is documented, or surrogate decision maker is listed in patient medical record.: Yes Medication Reconciliation I have utilized all available resources to obtain, update and review the patients current medications (includes all prescriptions, OTC, herbals, cannabis, and nutritional supplements).: Yes
[2025-01-08 11:24] LABS: Glucose Point of Care 237 mg/dl (65-105)
[2025-01-08] MEDS: INSULIN ASPART (*BKC) 100 UNITS/ML SUB-Q (12:02)
--- NOTE | 2025-01-08 15:03 | PCOTNOTE ---
Attempted to see pt for OT evaluation however pt was out of the room for an MRI/MRCP. Will continue to follow.
[2025-01-08] MEDS: GLUCOSE ORAL GEL 15 GM OF GLUCSE IN 37.5 GM TUBE PO (16:49)
[2025-01-08 16:51] LABS: Glucose Point of Care 54 mg/dl (65-105)
[2025-01-08] MEDS: DEXTROSE 50% 25 GM/50 ML SYRINGE IV PUSH (17:21)
[2025-01-08 17:44] LABS: Glucose Point of Care 63 mg/dl (65-105)
[2025-01-08 17:44] LABS: Glucose Point of Care 205 mg/dl (65-105)
[2025-01-08 20:27] LABS: Glucose Point of Care 319 mg/dl (65-105)
[2025-01-08] MEDS: ALPRAZolam (*CRX) 0.25 MG TABLET 0.75 MG PO (20:35)
[2025-01-08] MEDS: MONTELUKAST SODIUM 10 MG TABLET PO (20:35)
[2025-01-08] MEDS: INSULIN GLARGINE (*BKC) 100 UNITS/ML 45 UNITS SUB-Q (20:35)
[2025-01-09] VITALS (12 sets, daily range): BP systolic 142–155; BP diastolic 70–80; PULSE 67–91; RESP 14–18; TEMP 35.8–36.1; O2SAT 95–99
[2025-01-09] MEDS: SODIUM CHLORIDE 0.9% IV 1,000 ML 100 ML IV CONT (05:25)
[2025-01-09 06:51] LABS: Basophils Percent Auto 0.4 % (0.2-1.2); Eosinophils Absolute Auto 0.4 K/mm3 (0-0.3); Eosinophils Percent Auto 5.2 % (0-4.4); Hematocrit 32.3 % (37.0-47.0); Hemoglobin 9.6 g/dL (12.0-15.0); Immature Granulocyte Absolute 0.03 K/mm3 (0.00-0.031); Immature Granulocyte Percent A 0.4 % (0-0.5); Lymphocytes Absolute Auto 1.92 K/mm3 (0.9-3.2); Lymphocytes Percent Auto 27.1 % (18.3-44.2); Mean Corpuscular HGB Conc 29.7 g/dl (32-36); Mean Corpuscular Hemoglobin 26.2 pg (26-34); Mean Corpuscular Volume 88.3 fl (80-100); Mean Platelet Volume 10.2 fl (7.4-10.4); Monocytes Absolute Auto 0.7 K/mm3 (0.1-0.6); Monocytes Percent Auto 9.7 % (2.6-8.5); Neutrophils Percent Auto 57.2 % (45.5-73.1); Platelet Count Result 219 k/mm3 (150-375); Red Blood Count 3.66 M/mm3 (4.2-5.4); Red Cell Distribution Width 14.5 % (11.5-14.5); White Blood Count 7.1 K/mm3 (4.5-10.0)
[2025-01-09 07:07] LABS: Anion Gap 8 mmol/L (4-12); Blood Urea Nitrogen 21 mg/dL (7-17); Calcium 9.2 mg/dL (8.4-10.2); Carbon Dioxide 23 mmol/L (22-30); Chloride 109 mmol/L (98-107); Estimated CRCL calculation 42 ml/min; Estimated Glomerular Filt Rate 52; Glucose 42 mg/dL (65-110); Potassium 3.9 mmol/L (3.4-5.0); Sodium 140 mmol/L (137-145)
[2025-01-09] MEDS: GLUCOSE ORAL GEL 15 GM OF GLUCSE IN 37.5 GM TUBE PO (07:12)
[2025-01-09 07:16] LABS: Glucose Point of Care 50 mg/dl (65-105)
[2025-01-09 07:19] LABS: Crenated RBC 1+; Platelet Estimate Adequate (Adequate); Schistocytes None Seen; Tear Drop Cells 1+
--- NOTE | 2025-01-09 07:25 | PM.IMPN ---
Progress Note: A&P Assessment and Plan (1) UTI (urinary tract infection): Code(s): N39.0 - Urinary tract infection, site not specified Status: Acute Assessment and Plan: Started on ceftriaxone, growing E coli changed to Keflex since sensitive. Change to ceftriaxone since diverticulitis on MRI. First dose of Ceftiraxone 01/05 1600, so completes 5 days of treatment for a UTI today (2) Hallucinations: Code(s): R44.3 - Hallucinations, unspecified Status: Acute Assessment and Plan: Likely delirium 2/2 UTI, toxic/metabolic --reports no episodes overnight, remembers having hallucinations --Further workup if continue (3) Right ovarian enlargement: Code(s): N83.8 - Other noninflammatory disorders of ovary, fallopian tube and broad ligament Status: Acute Assessment and Plan: Unable to visualize with abdominal ultrasound. Discussed with ultrasound and unable to complete transvaginal ultrasound because patient was having hallucinations. Also spoke with radiologist and would on likely be visualized with transvaginal ultrasound 01/08 MRI Pelvis 1. 1.6 cm right adnexal cyst. Otherwise normal bilateral ovaries. 2. Diverticulitis at the junction of the descending and sigmoid colon. --Outpatient follow up with gynecology (4) AMS (altered mental status): Code(s): R41.82 - Altered mental status, unspecified Status: Acute Assessment and Plan: See hallucinations Delirium as noted (5) Pancreatic mass: Code(s): K86.89 - Other specified diseases of pancreas Status: Acute Assessment and Plan: Increased size of pancreatic mass from prior. 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 No acute fractures. Interval enlargement of a focus of decreased attenuation within the body of the pancreas when compared with multiple prior studies with atrophy of the tail of the pancreas. Follow-up examination (nonemergently) with contrast-enhanced MRI/MRCP with pancreatic mass protocol is recommended. Interval enlargement of the right ovary, an abnormal finding in a patient of this age, for which focused ultrasound (nonemergently) may be performed 01/08 MRCP 1. 6 mm simple appearing nonenhancing cystic lesion at the body the pancreas. Recommend 2 year follow-up pre and postcontrast MRI. 2. Small sliding-type hiatal hernia with postoperative changes suggesting possible prior Kwesi fundoplication. 3. Diverticulosis. (6) SHAWN (acute kidney injury): Code(s): N17.9 - Acute kidney failure, unspecified Status: Acute Assessment and Plan: RESOLVED Had mild SHAWN likely 2/2 IV contrast, UTI, or mild dehydration. Resolved with fluids --Urine sodium 54, creat 45 FeNa 1.1% indeterminate intrinsic or prerenal (7) Diverticulitis: Code(s): K57.92 - Diverticulitis of intestine, part unspecified, without perforation or abscess without bleeding Status: Acute Assessment and Plan: MRI pelvis showed diverticulitis at the junction of the descending and signmoid colon --Change Keflex (for UTI) to Ceftiaxone and add Flagyl 01/09- --5 days is likely adequate since uncomplicated but still present on MRI and keflex doesn't cover well, so continue to 01/13. When ready to discharge can continue Cipro/Flagyl (8) Hypoglycemia: Code(s): E16.2 - Hypoglycemia, unspecified Status: Inactive Assessment and Plan: Blood sugar low before dinner yesterday, 54. up to 319 at 2100, then 42 again this morning. --Decrease Lantus from 45>20 --Add mealtime insulin 5 units TID --Stop glipizide and jardiance. Would consider discontinuing at discharge. --Will need to titrate further Time Spent With Patient Time: 63 minutes Subjective Date/time seen: 01/09/25 07:25 Interval history: Blood sugars low overnight, stopped glipizide and januvia and changed to basal/bolus Hallucinations seem resolved Likely discharge tomorrow with some changes to insulin Review of Systems Review of Systems: 12 systems were reviewed with pertinent positives and negatives per HPI. Except as documented in the HPI, all other systems were reviewed and are negative. Exam Narrative: General - Awake and alert. No acute distress Eyes - PERRLA, EOM intact ENT - No thrush, No erythema Neck - No noticeable or palpable swelling Lymph Nodes - No lymphadenopathy Cardiovascular - RRR no m/r/g, no JVD Lungs: Clear to auscultation, No wheezing, use of accessory muscles, no crackles Skin - Skin warm and dry, no wounds or rashes Abdomen - Normal bowel sounds, abdomen soft and nontender Extremities - No edema, cyanosis or clubbing Musculoskeletal - 5/5 strength, normal range of motion, no swollen or erythematous joints. Neurological ? Alert and oriented x 3, CN 2-12 grossly intact. Psych: Normal mood and affect Objective Data Vital Signs Vital Signs: Vital Signs - 24 hr 01/08/25 08:00 01/08/25 09:57 01/08/25 12:04 Temperature Pulse Rate 78 76 70 Respiratory Rate Blood Pressure Pulse Oximetry Oxygen Delivery 01/08/25 14:00 01/08/25 14:05 01/08/25 17:26 Temperature 97.5 F L Pulse Rate 80 69 Respiratory Rate 18 Blood Pressure 158/65 H Pulse Oximetry 97 Oxygen Delivery Room Air 01/08/25 20:00 01/08/25 20:30 01/08/25 20:35 Temperature 97 F L Pulse Rate 83 69 68 Respiratory Rate 20 Blood Pressure 146/73 H Pulse Oximetry 96 Oxygen Delivery 01/09/25 00:00 01/09/25 04:00 Temperature Pulse Rate 67 67 Respiratory Rate Blood Pressure Pulse Oximetry Oxygen Delivery Intake/Output Intake/Output: Intake & Output 01/06/25 01/07/25 01/08/25 01/09/25 23:59 23:59 23:59 23:59 Intake Total 2140 1366 3070 700 Output Total 2000 1400 1350 Balance 2140 -634 1670 -650 Meds/Results Medications: Active Medications Generic Name Dose Route Start Last Admin Trade Name Freq PRN Reason Stop Dose Admin Acetaminophen 650 mg 01/05/25 20:16 Acetaminophen 325 Mg Tablet PO Q4H PRN Mild Pain (1-3) or Fever Albuterol/Ipratropium 3 ml 01/06/25 03:31 Ipratropium 0.5 Mg/Albuterol Sulfate 2.5 Mg Ampul.Neb 3 Ml INHALATION Q6H PRN Dyspnea Alprazolam 0.75 mg 01/06/25 03:30 01/08/25 20:35 Alprazolam (*Crx) 0.25 Mg Tablet PO 0.75 mg HS SADI Administration Alprazolam 1 mg 01/06/25 09:00 01/08/25 17:58 Alprazolam (*Crx) 0.5 Mg Tablet PO 1 mg BID SADI Administration Artificial Tears 1 drop 01/06/25 03:31 Artificial Tears Ophth Soln 15 Ml Bottle EACH EYE QID PRN Dry Eye(S) Aspirin 81 mg 01/06/25 09:00 01/08/25 09:58 Aspirin 81 Mg Enteric Tablet PO 81 mg DAILY SADI Administration Buspirone HCl 20 mg 01/06/25 03:30 01/08/25 17:58 Buspirone Hcl 10 Mg Tablet PO 20 mg TID SADI Administration Calcium Carbonate 200 mg 01/05/25 20:17 01/07/25 11:33 Calcium Carbonate (Tums) 500 Mg (200 Mg Elemental) PO 200 mg Q6H PRN Administration Indigestion Carvedilol 25 mg 01/06/25 09:00 01/08/25 20:35 Carvedilol 25 Mg Tablet PO 25 mg Q12HR SADI Administration Cephalexin HCl 500 mg 01/07/25 14:00 01/08/25 20:35 Cephalexin 500 Mg Capsule PO 01/11/25 21:01 500 mg Q12HR SADI Administration Dextrose 12.5 gm 01/05/25 20:19 01/08/25 17:21 Dextrose 50% 25 Gm/50 Ml Syringe IV PUSH 12.5 gm PRN PRN Administration Hypoglycemia Protocol Donepezil HCl 10 mg 01/06/25 09:00 01/08/25 09:57 Donepezil Hcl 5 Mg Tablet PO 10 mg DAILY SADI Administration Fluticasone Propionate 1 spray 01/06/25 09:00 01/08/25 20:35 Fluticasone Propionate 0.05% Na Spr 16 Gm Btl (*Bkc) NASAL 1 spray Q12HR SADI Administration Fluticasone/Umeclidinium/Vilanterol 1 puff 01/06/25 08:00 01/08/25 07:30 Fluticasone/Umeclidin/Vilanter 100-62.5-25 Mcg Ellipta INHALATION Not Given DAILYRT [facility] Glipizide 10 mg 01/06/25 07:30 01/09/25 07:12 Glipizide 5 Mg Tablet PO Not Given DAILY@0730 SADI Glucagon 1 mg 01/05/25 20:19 Glucagon For Inj 1 Mg Vial IM PRN PRN Hypoglycemia Protocol Glucose 15 gm 01/05/25 20:19 01/09/25 07:12 Glucose Oral Gel 15 Gm Of Glucse In 37.5 Gm Tube PO 15 gm PRN PRN Administration Hypoglycemia Protocol Guaifenesin 600 mg 01/06/25 09:00 01/08/25 20:35 Guaifenesin 12 Hr 600 Mg Tabcr PO 600 mg Q12HR SADI Administration Hydralazine HCl 10 mg 01/05/25 20:20 Hydralazine Hcl 20 Mg/Ml Vial IV PUSH Q6H PRN SBP greater than 180 Hydrocortisone 1 applic 01/06/25 03:31 Hydrocortisone 1% 30 Gm Cream TOPICAL Q12HR PRN itching Dextrose 1,000 mls @ 100 mls/hr 01/05/25 20:19 Dextrose 5% 1,000 Ml IVPB PRN PRN Hypoglycemia Protocol Sodium Chloride 1,000 mls @ 100 mls/hr 01/07/25 16:30 01/09/25 05:25 Normal Saline Iv IV CONT 100 mls/hr .Q10H SADI Administration Insulin Aspart 3 - 6 units 01/06/25 08:00 01/09/25 07:13 Insulin Aspart (*Bkc) 100 Units/Ml SUB-Q Not Given TIDWM SADI Protocol Insulin Glargine 25 units 01/09/25 21:00 Insulin Glargine (*Bkc) 100 Units/Ml SUB-Q HS SADI Loratadine 10 mg 01/06/25 09:00 01/08/25 09:57 Loratadine 10 Mg Tablet PO 10 mg QAM SADI Administration Montelukast Sodium 10 mg 01/06/25 21:00 01/08/25 20:35 Montelukast Sodium 10 Mg Tablet PO 10 mg HS SADI Administration Multi-Ingred Cream/Lotion/Oil/Oint 1 applic 01/06/25 09:00 01/08/25 09:58 Eucerin Cream 120 Gm Jar TOPICAL 1 applic DAILY SADI Administration Ondansetron HCl 4 mg 01/05/25 20:17 Ondansetron Inj 4 Mg/2 Ml Vial IV PUSH Q6H PRN Nausea And Vomiting Pantoprazole Sodium 40 mg 01/06/25 09:00 01/08/25 09:58 Pantoprazole 40 Mg Tablet PO 40 mg DAILY SADI Administration Paroxetine HCl 60 mg 01/06/25 09:00 01/08/25 09:57 Paroxetine 20 Mg Tablet PO 60 mg DAILY SADI Administration Polyethylene Glycol 17 gm 01/06/25 03:31 Polyethylene Glycol 3350 17 Gm Powd.Pack PO BID PRN Constipation Sitagliptin Phosphate 100 mg 01/06/25 09:00 01/08/25 09:57 Sitagliptin Phosphate 100 Mg Tablet PO 100 mg QAM SADI Administration Tramadol HCl 50 mg 01/06/25 03:31 01/06/25 05:17 Tramadol Hcl (*Crx) 50 Mg Tablet PO 50 mg Q6H PRN Administration Pain 4-10 Radiology Results: ITS Impressions Chest X-Ray 01/05/25 13:01 IMPRESSION: No focal infiltrate or effusion. Head CT 01/05/25 14:21 Impression: No acute intracranial hemorrhage or suspicious mass effect. 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 No acute fractures. Interval enlargement of a focus of decreased attenuation within the body of the pancreas when compared with multiple prior studies with atrophy of the tail of the pancreas. Follow-up examination (nonemergently) with contrast-enhanced MRI/MRCP with pancreatic mass protocol is recommended. Interval enlargement of the right ovary, an abnormal finding in a patient of this age, for which focused ultrasound (nonemergently) may be performed. Pelvis Ultrasound 01/06/25 17:26 IMPRESSION: Nonvisualization of the uterus and ovaries. MRCP 01/08/25 16:48 IMPRESSION: 1. 6 mm simple appearing nonenhancing cystic lesion at the body the pancreas. Recommend 2 year follow-up pre and postcontrast MRI. 2. Small sliding-type hiatal hernia with postoperative changes suggesting possible prior Kwesi fundoplication. 3. Diverticulosis. Pelvis MRI 01/08/25 17:19 IMPRESSION: 1. 1.6 cm right adnexal cyst. Otherwise normal bilateral ovaries. 2. Diverticulitis at the junction of the descending and sigmoid colon. Labs Labs: Laboratory Results - last 24 hr 01/08/25 01/08/25 01/08/25 07:38 11:19 16:42 WBC RBC Hgb Hct MCV MCH MCHC RDW Plt Count MPV Immature Gran % (Auto) Neut % (Auto) Lymph % (Auto) [place]alier % (Auto) Eos % (Auto) Baso % (Auto) Lymph # (Auto) [place]ier # (Auto) Eos # (Auto) Baso # (Auto) Abs Immat Gran (auto) Absolute Neuts (auto) Absolute Nucleated RBC Band Neutrophils % Nucleated RBC % Platelet Estimate Tear Drop Cells Crenated Cell Schistocytes Sodium Potassium Chloride Carbon Dioxide Anion Gap BUN Creatinine Estim Creat Clear Calc Estimated GFR Glucose POC Capillary Glucose 146 H 237 H 54 L* Calcium 01/08/25 01/08/25 01/08/25 17:06 17:41 19:33 WBC RBC Hgb Hct MCV MCH MCHC RDW Plt Count MPV Immature Gran % (Auto) Neut % (Auto) Lymph % (Auto) [place] % (Auto) Eos % (Auto) Baso % (Auto) Lymph # (Auto) [place]ier # (Auto) Eos # (Auto) Baso # (Auto) Abs Immat Gran (auto) Absolute Neuts (auto) Absolute Nucleated RBC Band Neutrophils % Nucleated RBC % Platelet Estimate Tear Drop Cells Crenated Cell Schistocytes Sodium Potassium Chloride Carbon Dioxide Anion Gap BUN Creatinine Estim Creat Clear Calc Estimated GFR Glucose POC Capillary Glucose 63 L 205 H 319 H Calcium 01/09/25 01/09/25 06:18 07:09 WBC 7.1 RBC 3.66 L Hgb 9.6 L Hct 32.3 L MCV 88.3 MCH 26.2 MCHC 29.7 L RDW 14.5 Plt Count 219 MPV 10.2 Immature Gran % (Auto) 0.4 Neut % (Auto) 57.2 Lymph % (Auto) 27.1 Cavalier % (Auto) 9.7 H Eos % (Auto) 5.2 H Baso % (Auto) 0.4 Lymph # (Auto) 1.92 Cavalier # (Auto) 0.7 H Eos # (Auto) 0.4 H Baso # (Auto) 0.0 Abs Immat Gran (auto) 0.03 Absolute Neuts (auto) 4.0 Absolute Nucleated RBC 0.000 Band Neutrophils % Not Reportable Nucleated RBC % 0.0 Platelet Estimate Adequate Tear Drop Cells 1+ Crenated Cell 1+ Schistocytes None seen Sodium 140 Potassium 3.9 Chloride 109 H Carbon Dioxide 23 Anion Gap 8 BUN 21 H Creatinine 1.02 H Estim Creat Clear Calc 42 Estimated GFR 52 L Glucose 42 L* POC Capillary Glucose 50 L* Calcium 9.2 Quality VTE Prophylaxis VTE prophylaxis: mechanical ordered (SCDs) and pharmacologic ordered Hospitalist MIPS Advance Care Plan I have confirmed that the patient's Advanced Care Plan is present, code status is documented, or surrogate decision maker is listed in patient medical record.: Yes Medication Reconciliation I have utilized all available resources to obtain, update and review the patients current medications (includes all prescriptions, OTC, herbals, cannabis, and nutritional supplements).: Yes
[2025-01-09] MEDS: FLUTICASONE/UMECLIDIN/VILANTER 100-62.5-25 MCG ELLIPTA 1 PUFF INHALATION (07:28)
[2025-01-09 07:33] LABS: Glucose Point of Care 79 mg/dl (65-105)
[2025-01-09] MEDS: DONEPEZIL HCL 5 MG TABLET 10 MG PO (10:16)
[2025-01-09] MEDS: PARoxetine 20 MG TABLET 60 MG PO (10:17)
[2025-01-09] MEDS: LORATADINE 10 MG TABLET PO (10:17)
[2025-01-09] MEDS: carvediloL 25 MG TABLET PO ×2 (10:17→20:34)
[2025-01-09] MEDS: guaiFENesin 12 HR 600 MG TABCR PO ×2 (10:17→20:34)
[2025-01-09] MEDS: ALPRAZolam (*CRX) 0.5 MG TABLET 1 MG PO ×2 (10:17→18:00)
[2025-01-09] MEDS: ASPIRIN 81 MG ENTERIC TABLET PO (10:17)
[2025-01-09] MEDS: PANTOPRAZOLE 40 MG TABLET PO (10:17)
[2025-01-09] MEDS: CEPHALEXIN 500 MG CAPSULE PO (10:18)
[2025-01-09] MEDS: FLUTICASONE PROPIONATE 0.05% NA SPR 16 GM BTL (*BKC) 1 SPRAY NASAL ×2 (10:18→20:35)
[2025-01-09] MEDS: busPIRone HCL 10 MG TABLET 20 MG PO ×3 (10:18→18:00)
[2025-01-09] MEDS: EUCERIN CREAM 120 GM JAR 1 APPLIC TOPICAL (10:19)
[2025-01-09 11:54] LABS: Glucose Point of Care 120 mg/dl (65-105)
[2025-01-09] MEDS: metroNIDAZOLE 500 MG TABLET PO ×2 (14:06→18:00)
[2025-01-09 16:51] LABS: Glucose Point of Care 139 mg/dl (65-105)
[2025-01-09 20:21] LABS: Glucose Point of Care 208 mg/dl (65-105)
[2025-01-09] MEDS: ALPRAZolam (*CRX) 0.25 MG TABLET 0.75 MG PO (20:34)
[2025-01-09] MEDS: MONTELUKAST SODIUM 10 MG TABLET PO (20:34)
[2025-01-09] MEDS: INSULIN GLARGINE (*BKC) 100 UNITS/ML 20 UNITS SUB-Q (20:35)
[2025-01-10] VITALS (11 sets, daily range): BP systolic 154–176; BP diastolic 58–82; PULSE 70–87; RESP 13–18; TEMP 35.5–36.3; O2SAT 96–98
[2025-01-10 05:45] LABS: Glucose Point of Care 98 mg/dl (65-105)
[2025-01-10 06:26] LABS: Hematocrit 31.9 % (37.0-47.0); Hemoglobin 9.9 g/dL (12.0-15.0); Mean Corpuscular Hemoglobin 26.5 pg (26-34); Mean Corpuscular Volume 85.5 fl (80-100); Mean Platelet Volume 10.3 fl (7.4-10.4); Platelet Count Result 203 k/mm3 (150-375); Red Blood Count 3.73 M/mm3 (4.2-5.4); Red Cell Distribution Width 14.5 % (11.5-14.5)
[2025-01-10 06:32] LABS: Alanine Aminotransferase 18 U/L (6-35); Albumin Level 3.4 g/dL (3.5-5.1); Alkaline Phosphatase 94 U/L (38-126); Anion Gap 5 mmol/L (4-12); Aspartate Amino Transferase 26 U/L (14-36); Bilirubin,Total 0.2 mg/dL (0.2-1.3); Blood Urea Nitrogen 22 mg/dL (7-17); Calcium 9.2 mg/dL (8.4-10.2); Carbon Dioxide 28 mmol/L (22-30); Chloride 107 mmol/L (98-107); Estimated CRCL calculation 39 ml/min; Estimated Glomerular Filt Rate 48; Glucose 97 mg/dL (65-110); Potassium 3.9 mmol/L (3.4-5.0); Sodium 140 mmol/L (137-145)
[2025-01-10] MEDS: FLUTICASONE/UMECLIDIN/VILANTER 100-62.5-25 MCG ELLIPTA 1 PUFF INHALATION (08:06)
[2025-01-10 08:10] LABS: Glucose Point of Care 84 mg/dl (65-105)
--- NOTE | 2025-01-10 09:11 | P.PNIM_ITS ---
Progress Note: A&P Assessment and Plan (1) UTI (urinary tract infection): Code(s): N39.0 - Urinary tract infection, site not specified Status: Acute Assessment and Plan: Started on ceftriaxone, growing E coli changed to Keflex since sensitive. Change to ceftriaxone since diverticulitis on MRI. First dose of Ceftiraxone 01/05 1600, so completes 5 days of treatment for a UTI today (2) Hallucinations: Code(s): R44.3 - Hallucinations, unspecified Status: Acute Assessment and Plan: Likely delirium 2/2 UTI, toxic/metabolic --reports no episodes overnight, remembers having hallucinations --Further workup if continue (3) Right ovarian enlargement: Code(s): N83.8 - Other noninflammatory disorders of ovary, fallopian tube and broad ligament Status: Acute Assessment and Plan: Unable to visualize with abdominal ultrasound. Discussed with ultrasound and unable to complete transvaginal ultrasound because patient was having hallucinations. Also spoke with radiologist and would on likely be visualized with transvaginal ultrasound 01/08 MRI Pelvis 1. 1.6 cm right adnexal cyst. Otherwise normal bilateral ovaries. 2. Diverticulitis at the junction of the descending and sigmoid colon. --Outpatient follow up with gynecology (4) AMS (altered mental status): Code(s): R41.82 - Altered mental status, unspecified Status: Acute Assessment and Plan: See hallucinations Delirium as noted (5) Pancreatic mass: Code(s): K86.89 - Other specified diseases of pancreas Status: Acute Assessment and Plan: Increased size of pancreatic mass from prior. 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 No acute fractures. Interval enlargement of a focus of decreased attenuation within the body of the pancreas when compared with multiple prior studies with atrophy of the tail of the pancreas. Follow-up examination (nonemergently) with contrast-enhanced MRI/MRCP with pancreatic mass protocol is recommended. Interval enlargement of the right ovary, an abnormal finding in a patient of this age, for which focused ultrasound (nonemergently) may be performed 01/08 MRCP 1. 6 mm simple appearing nonenhancing cystic lesion at the body the pancreas. Recommend 2 year follow-up pre and postcontrast MRI. 2. Small sliding-type hiatal hernia with postoperative changes suggesting possible prior Kwesi fundoplication. 3. Diverticulosis. (6) SHAWN (acute kidney injury): Code(s): N17.9 - Acute kidney failure, unspecified Status: Acute Assessment and Plan: RESOLVED Had mild SHAWN likely 2/2 IV contrast, UTI, or mild dehydration. Resolved with fluids --Urine sodium 54, creat 45 FeNa 1.1% indeterminate intrinsic or prerenal (7) Diverticulitis: Code(s): K57.92 - Diverticulitis of intestine, part unspecified, without perforation or abscess without bleeding Status: Acute Assessment and Plan: MRI pelvis showed diverticulitis at the junction of the descending and signmoid colon --Change Keflex (for UTI) to Ceftiaxone and add Flagyl 01/09- --5 days is likely adequate since uncomplicated but still present on MRI and keflex doesn't cover well, so continue to 01/13. When ready to discharge can continue Cipro/Flagyl (8) Hypoglycemia: Code(s): E16.2 - Hypoglycemia, unspecified Status: Inactive Assessment and Plan: Blood sugar low before dinner yesterday, 54. up to 319 at 2100, then 42 again this morning. --Decrease Lantus from 45>20 --Add mealtime insulin 5 units TID --Stop glipizide and jardiance. Would consider discontinuing at discharge. --Will need to titrate further Subjective Date/time seen: 01/10/25 09:11 Interval history: Patient had episodes of hypoglycemia this evening. Received dextrose. Will continue to monitor Review of Systems Review of Systems: 12 systems were reviewed with pertinent positives and negatives per HPI. Except as documented in the HPI, all other systems were reviewed and are negative. Exam Narrative: General - Awake and alert. No acute distress Eyes - PERRLA, EOM intact ENT - No thrush, No erythema Neck - No noticeable or palpable swelling Lymph Nodes - No lymphadenopathy Cardiovascular - RRR no m/r/g, no JVD Lungs: Clear to auscultation, No wheezing, use of accessory muscles, no crackles Skin - Skin warm and dry, no wounds or rashes Abdomen - Normal bowel sounds, abdomen soft and nontender Extremities - No edema, cyanosis or clubbing Musculoskeletal - 5/5 strength, normal range of motion, no swollen or erythematous joints. Neurological ? Alert and oriented x 3, CN 2-12 grossly intact. Psych: Normal mood and affect Const: Other: Obese, elderly, no acute distress HENMT: Other: Mucous membranes are tacky, no oral pharyngeal erythema, fair dentition, head is normocephalic atraumatic Eyes: Other: Pupils are equal and reactive, no scleral icterus Neck: Other: Large neck circumference, no JVD Resp: Other: Clear to auscultation bilaterally, no increased work of breathing Cardio: Other: Regular rate, regular rhythm, 2+ bilateral radial pedal pulses, no murmur GI: Other: Soft, nontender, nondistended, normoactive bowel sounds Skin: Other: Generalized pallor, non jaundice Neuro: Other: Alert oriented, speech is clear and fluent, no facial asymmetry extraocular movements intact, no localizing neurologic deficits noted during the course of conversation Extrem: Other: No clubbing, cyanosis or edema, 4/5 regulatory compliance director strength bilaterally Psych: Other: Appropriate mood and affect, pleasant and cooperative Objective Data Vital Signs Vital Signs: Vital Signs - 24 hr 01/09/25 10:17 01/09/25 12:05 01/09/25 14:00 Temperature 96.5 F L Pulse Rate 67 68 73 Respiratory Rate 18 Blood Pressure 155/70 H Pulse Oximetry 99 Oxygen Delivery 01/09/25 16:01 01/09/25 20:00 01/09/25 20:23 Temperature Pulse Rate 78 91 Respiratory Rate Blood Pressure Pulse Oximetry 95 Oxygen Delivery Room Air 01/09/25 20:34 01/09/25 21:34 01/10/25 00:00 Temperature 97.0 F L Pulse Rate 83 81 87 Respiratory Rate 14 Blood Pressure 142/80 H Pulse Oximetry 95 Oxygen Delivery 01/10/25 04:00 01/10/25 04:36 Temperature 96.9 F L Pulse Rate 79 79 Respiratory Rate 13 Blood Pressure 172/62 H Pulse Oximetry 98 Oxygen Delivery Intake/Output Intake/Output: Intake & Output 01/07/25 01/08/25 01/09/25 01/10/25 23:59 23:59 23:59 23:59 Intake Total 1366 3070 1720 300 Output Total 1999 1400 1850 1100 Balance -634 1670 -130 -800 Meds/Results Medications: Active Medications Generic Name Dose Route Start Last Admin Trade Name Freq PRN Reason Stop Dose Admin Acetaminophen 650 mg 01/05/25 20:16 Acetaminophen 325 Mg Tablet PO Q4H PRN Mild Pain (1-3) or Fever Albuterol/Ipratropium 3 ml 01/06/25 03:31 Ipratropium 0.5 Mg/Albuterol Sulfate 2.5 Mg Ampul.Neb 3 Ml INHALATION Q6H PRN Dyspnea Alprazolam 0.75 mg 01/06/25 03:30 01/09/25 20:34 Alprazolam (*Crx) 0.25 Mg Tablet PO 0.75 mg HS SADI Administration Alprazolam 1 mg 01/06/25 09:00 01/09/25 18:00 Alprazolam (*Crx) 0.5 Mg Tablet PO 1 mg BID SADI Administration Artificial Tears 1 drop 01/06/25 03:31 Artificial Tears Ophth Soln 15 Ml Bottle EACH EYE QID PRN Dry Eye(S) Aspirin 81 mg 01/06/25 09:00 01/09/25 10:17 Aspirin 81 Mg Enteric Tablet PO 81 mg DAILY SADI Administration Buspirone HCl 20 mg 01/06/25 03:30 01/09/25 18:00 Buspirone Hcl 10 Mg Tablet PO 20 mg TID SADI Administration Calcium Carbonate 200 mg 01/05/25 20:17 01/07/25 11:33 Calcium Carbonate (Tums) 500 Mg (200 Mg Elemental) PO 200 mg Q6H PRN Administration Indigestion Carvedilol 25 mg 01/06/25 09:00 01/09/25 20:34 Carvedilol 25 Mg Tablet PO 25 mg Q12HR SADI Administration Dextrose 12.5 gm 01/05/25 20:19 01/08/25 17:21 Dextrose 50% 25 Gm/50 Ml Syringe IV PUSH 12.5 gm PRN PRN Administration Hypoglycemia Protocol Donepezil HCl 10 mg 01/06/25 09:00 01/09/25 10:16 Donepezil Hcl 5 Mg Tablet PO 10 mg DAILY SADI Administration Fluticasone Propionate 1 spray 01/06/25 09:00 01/09/25 20:35 Fluticasone Propionate 0.05% Na Spr 16 Gm Btl (*Bkc) NASAL 1 spray Q12HR SADI Administration Fluticasone/Umeclidinium/Vilanterol 1 puff 01/06/25 08:00 01/10/25 08:06 Fluticasone/Umeclidin/Vilanter 100-62.5-25 Mcg Ellipta INHALATION 1 puff DAILYRT SADI Administration Glucagon 1 mg 01/05/25 20:19 Glucagon For Inj 1 Mg Vial IM PRN PRN Hypoglycemia Protocol Glucose 15 gm 01/05/25 20:19 01/09/25 07:12 Glucose Oral Gel 15 Gm Of Glucse In 37.5 Gm Tube PO 15 gm PRN PRN Administration Hypoglycemia Protocol Guaifenesin 600 mg 01/06/25 09:00 01/09/25 20:34 Guaifenesin 12 Hr 600 Mg Tabcr PO 600 mg Q12HR SADI Administration Hydralazine HCl 10 mg 01/05/25 20:20 Hydralazine Hcl 20 Mg/Ml Vial IV PUSH Q6H PRN SBP greater than 180 Hydrocortisone 1 applic 01/06/25 03:31 Hydrocortisone 1% 30 Gm Cream TOPICAL Q12HR PRN itching Dextrose 1,000 mls @ 100 mls/hr 01/05/25 20:19 Dextrose 5% 1,000 Ml IVPB PRN PRN Hypoglycemia Protocol Ceftriaxone Sodium 1 gm in 50 mls @ 100 mls/hr 01/09/25 11:00 01/09/25 14:36 Rocephin 1 Gm/Ns 50 Ml IVPB Infused Q24H SADI Infusion Insulin Aspart 3 - 6 units 01/06/25 08:00 01/10/25 08:24 Insulin Aspart (*Bkc) 100 Units/Ml SUB-Q Not Given TIDWM [facility] Protocol Insulin Aspart 5 units 01/10/25 08:00 Insulin Aspart (*Bkc) 100 Units/Ml SUB-Q TIDWM SADI Insulin Glargine 20 units 01/09/25 21:00 01/09/25 20:35 Insulin Glargine (*Bkc) 100 Units/Ml SUB-Q 20 units HS SADI Administration Loratadine 10 mg 01/06/25 09:00 01/09/25 10:17 Loratadine 10 Mg Tablet PO 10 mg QAM SADI Administration Metronidazole 500 mg 01/09/25 11:00 01/09/25 18:00 Metronidazole 500 Mg Tablet PO 500 mg BID SADI Administration Montelukast Sodium 10 mg 01/06/25 21:00 01/09/25 20:34 Montelukast Sodium 10 Mg Tablet PO 10 mg HS SADI Administration Multi-Ingred Cream/Lotion/Oil/Oint 1 applic 01/06/25 09:00 01/09/25 10:19 Eucerin Cream 120 Gm Jar TOPICAL 1 applic DAILY SADI Administration Ondansetron HCl 4 mg 01/05/25 20:17 Ondansetron Inj 4 Mg/2 Ml Vial IV PUSH Q6H PRN Nausea And Vomiting Pantoprazole Sodium 40 mg 01/06/25 09:00 01/09/25 10:17 Pantoprazole 40 Mg Tablet PO 40 mg DAILY SADI Administration Paroxetine HCl 60 mg 01/06/25 09:00 01/09/25 10:17 Paroxetine 20 Mg Tablet PO 60 mg DAILY SADI Administration Polyethylene Glycol 17 gm 01/06/25 03:31 Polyethylene Glycol 3350 17 Gm Powd.Pack PO BID PRN Constipation Tramadol HCl 50 mg 01/06/25 03:31 01/06/25 05:17 Tramadol Hcl (*Crx) 50 Mg Tablet PO 50 mg Q6H PRN Administration Pain 4-10 Radiology Results: ITS Impressions Chest X-Ray 01/05/25 13:01 IMPRESSION: No focal infiltrate or effusion. Head CT 01/05/25 14:21 Impression: No acute intracranial hemorrhage or suspicious mass effect. 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 No acute fractures. Interval enlargement of a focus of decreased attenuation within the body of the pancreas when compared with multiple prior studies with atrophy of the tail of the pancreas. Follow-up examination (nonemergently) with contrast-enhanced MRI/MRCP with pancreatic mass protocol is recommended. Interval enlargement of the right ovary, an abnormal finding in a patient of this age, for which focused ultrasound (nonemergently) may be performed. Pelvis Ultrasound 01/06/25 17:26 IMPRESSION: Nonvisualization of the uterus and ovaries. MRCP 01/08/25 16:48 IMPRESSION: 1. 6 mm simple appearing nonenhancing cystic lesion at the body the pancreas. Recommend 2 year follow-up pre and postcontrast MRI. 2. Small sliding-type hiatal hernia with postoperative changes suggesting possible prior Kwesi fundoplication. 3. Diverticulosis. Pelvis MRI 01/08/25 17:19 IMPRESSION: 1. 1.6 cm right adnexal cyst. Otherwise normal bilateral ovaries. 2. Diverticulitis at the junction of the descending and sigmoid colon. Labs Labs: Laboratory Results - last 24 hr 01/09/25 01/09/25 01/09/25 11:48 16:43 19:56 WBC RBC Hgb Hct MCV MCH MCHC RDW Plt Count MPV Sodium Potassium Chloride Carbon Dioxide Anion Gap BUN Creatinine Estim Creat Clear Calc Estimated GFR Glucose POC Capillary Glucose 120 H 139 H 208 H Calcium Total Bilirubin AST ALT Alkaline Phosphatase Total Protein Albumin 01/10/25 01/10/25 01/10/25 05:40 05:44 08:01 WBC 7.0 RBC 3.73 L Hgb 9.9 L Hct 31.9 L MCV 85.5 MCH 26.5 MCHC 31.0 L RDW 14.5 Plt Count 203 MPV 10.3 Sodium 140 Potassium 3.9 Chloride 107 Carbon Dioxide 28 Anion Gap 5 BUN 22 H Creatinine 1.10 H Estim Creat Clear Calc 39 Estimated GFR 48 L Glucose 97 POC Capillary Glucose 98 84 Calcium 9.2 Total Bilirubin 0.2 AST 26 ALT 18 Alkaline Phosphatase 94 Total Protein 6.0 L Albumin 3.4 L Quality VTE Prophylaxis VTE prophylaxis: mechanical ordered (SCDs) and pharmacologic ordered Hospitalist MIPS Advance Care Plan I have confirmed that the patient's Advanced Care Plan is present, code status is documented, or surrogate decision maker is listed in patient medical record.: Yes Medication Reconciliation I have utilized all available resources to obtain, update and review the patients current medications (includes all prescriptions, OTC, herbals, cannabis, and nutritional supplements).: Yes
[2025-01-10] MEDS: INSULIN ASPART (*BKC) 100 UNITS/ML SUB-Q ×2 (09:39→12:35)
[2025-01-10] MEDS: FLUTICASONE PROPIONATE 0.05% NA SPR 16 GM BTL (*BKC) 1 SPRAY NASAL (09:42)
[2025-01-10] MEDS: metroNIDAZOLE 500 MG TABLET PO ×2 (09:43→17:16)
[2025-01-10] MEDS: ALPRAZolam (*CRX) 0.5 MG TABLET 1 MG PO ×2 (09:46→17:16)
[2025-01-10] MEDS: ASPIRIN 81 MG ENTERIC TABLET PO (09:46)
[2025-01-10] MEDS: EUCERIN CREAM 120 GM JAR 1 APPLIC TOPICAL (09:48)
[2025-01-10] MEDS: PANTOPRAZOLE 40 MG TABLET PO (09:48)
[2025-01-10] MEDS: PARoxetine 20 MG TABLET 60 MG PO (09:48)
[2025-01-10] MEDS: DONEPEZIL HCL 5 MG TABLET 10 MG PO (09:50)
[2025-01-10] MEDS: busPIRone HCL 10 MG TABLET 20 MG PO ×3 (09:50→17:17)
[2025-01-10] MEDS: carvediloL 25 MG TABLET PO ×2 (09:50→21:35)
[2025-01-10] MEDS: LORATADINE 10 MG TABLET PO (09:51)
[2025-01-10] MEDS: guaiFENesin 12 HR 600 MG TABCR PO ×2 (09:52→21:35)
[2025-01-10 11:48] LABS: Glucose Point of Care 136 mg/dl (65-105)
[2025-01-10 16:50] LABS: Glucose Point of Care 56 mg/dl (65-105)
[2025-01-10] MEDS: DEXTROSE 50% 25 GM/50 ML SYRINGE IV PUSH (17:17)
[2025-01-10 17:27] LABS: Glucose Point of Care 56 mg/dl (65-105)
[2025-01-10 17:47] LABS: Glucose Point of Care 196 mg/dl (65-105)
[2025-01-10 21:18] LABS: Glucose Point of Care 167 mg/dl (65-105)
[2025-01-10] MEDS: ALPRAZolam (*CRX) 0.25 MG TABLET 0.75 MG PO (21:35)
[2025-01-10] MEDS: MONTELUKAST SODIUM 10 MG TABLET PO (21:35)
[2025-01-11] VITALS (12 sets, daily range): BP systolic 160–176; BP diastolic 81–88; PULSE 71–83; RESP 16–20; TEMP 36.1–36.5; O2SAT 95–100
[2025-01-11] MEDS: LORATADINE 10 MG TABLET PO (08:38)
[2025-01-11] MEDS: PANTOPRAZOLE 40 MG TABLET PO (08:39)
[2025-01-11] MEDS: busPIRone HCL 10 MG TABLET 20 MG PO ×3 (08:39→17:46)
[2025-01-11] MEDS: ALPRAZolam (*CRX) 0.5 MG TABLET 1 MG PO ×2 (08:39→17:46)
[2025-01-11] MEDS: carvediloL 25 MG TABLET PO ×2 (08:39→21:01)
[2025-01-11] MEDS: PARoxetine 20 MG TABLET 60 MG PO (08:39)
[2025-01-11] MEDS: DONEPEZIL HCL 5 MG TABLET 10 MG PO (08:39)
[2025-01-11] MEDS: guaiFENesin 12 HR 600 MG TABCR PO ×2 (08:39→21:01)
[2025-01-11] MEDS: ASPIRIN 81 MG ENTERIC TABLET PO (08:39)
[2025-01-11] MEDS: metroNIDAZOLE 500 MG TABLET PO (08:40)
[2025-01-11] MEDS: FLUTICASONE PROPIONATE 0.05% NA SPR 16 GM BTL (*BKC) 1 SPRAY NASAL (08:40)
[2025-01-11] MEDS: EUCERIN CREAM 120 GM JAR 1 APPLIC TOPICAL (08:41)
[2025-01-11 08:47] LABS: Glucose Point of Care 152 mg/dl (65-105)
[2025-01-11] MEDS: FLUTICASONE/UMECLIDIN/VILANTER 100-62.5-25 MCG ELLIPTA 1 PUFF INHALATION (09:30)
--- NOTE | 2025-01-11 09:49 | PM.IMPN ---
Progress Note: A&P Assessment and Plan (1) UTI (urinary tract infection): Code(s): N39.0 - Urinary tract infection, site not specified Status: Acute Assessment and Plan: Started on ceftriaxone, growing E coli changed to Keflex since sensitive. Change to ceftriaxone since diverticulitis on MRI. S/P Ceftriaxone Started Augmentin until 01/13 (2) Hallucinations: Code(s): R44.3 - Hallucinations, unspecified Status: Acute Assessment and Plan: Likely delirium 2/2 UTI, toxic/metabolic --reports no episodes overnight, remembers having hallucinations --Further workup if continue (3) Right ovarian enlargement: Code(s): N83.8 - Other noninflammatory disorders of ovary, fallopian tube and broad ligament Status: Acute Assessment and Plan: Unable to visualize with abdominal ultrasound. Discussed with ultrasound and unable to complete transvaginal ultrasound because patient was having hallucinations. Also spoke with radiologist and would on likely be visualized with transvaginal ultrasound 01/08 MRI Pelvis 1. 1.6 cm right adnexal cyst. Otherwise normal bilateral ovaries. 2. Diverticulitis at the junction of the descending and sigmoid colon. --Outpatient follow up with gynecology (4) AMS (altered mental status): Code(s): R41.82 - Altered mental status, unspecified Status: Acute Assessment and Plan: See hallucinations Delirium as noted (5) Pancreatic mass: Code(s): K86.89 - Other specified diseases of pancreas Status: Acute Assessment and Plan: Increased size of pancreatic mass from prior. 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 No acute fractures. Interval enlargement of a focus of decreased attenuation within the body of the pancreas when compared with multiple prior studies with atrophy of the tail of the pancreas. Follow-up examination (nonemergently) with contrast-enhanced MRI/MRCP with pancreatic mass protocol is recommended. Interval enlargement of the right ovary, an abnormal finding in a patient of this age, for which focused ultrasound (nonemergently) may be performed 01/08 MRCP 1. 6 mm simple appearing nonenhancing cystic lesion at the body the pancreas. Recommend 2 year follow-up pre and postcontrast MRI. 2. Small sliding-type hiatal hernia with postoperative changes suggesting possible prior Kwesi fundoplication. 3. Diverticulosis. (6) SHAWN (acute kidney injury): Code(s): N17.9 - Acute kidney failure, unspecified Status: Acute Assessment and Plan: RESOLVED Had mild SHAWN likely 2/2 IV contrast, UTI, or mild dehydration. Resolved with fluids --Urine sodium 54, creat 45 FeNa 1.1% indeterminate intrinsic or prerenal (7) Diverticulitis: Code(s): K57.92 - Diverticulitis of intestine, part unspecified, without perforation or abscess without bleeding Status: Acute Assessment and Plan: MRI pelvis showed diverticulitis at the junction of the descending and signmoid colon --Change Keflex (for UTI) to Ceftiaxone and add Flagyl 01/09- --5 days is likely adequate since uncomplicated but still present on MRI and keflex doesn't cover well, so continue to 01/13. Started Augmentin until 01/13 (8) Hypoglycemia: Code(s): E16.2 - Hypoglycemia, unspecified Status: Inactive Assessment and Plan: Blood sugar low before dinner yesterday, 54. up to 319 at 2100, then 42 again this morning. --Decrease Lantus from 45>20 --Add mealtime insulin 5 units TID --Stop glipizide and jardiance. Would consider discontinuing at discharge. --Will need to titrate further Subjective Date/time seen: 01/11/25 09:49 Interval history: Patient complains of abdominal pain which comes and goes. Will start Bentyl PRN. Possible DC tomorrow. Review of Systems Review of Systems: 12 systems were reviewed with pertinent positives and negatives per HPI. Except as documented in the HPI, all other systems were reviewed and are negative. Exam Narrative: General - Awake and alert. No acute distress Eyes - PERRLA, EOM intact ENT - No thrush, No erythema Neck - No noticeable or palpable swelling Lymph Nodes - No lymphadenopathy Cardiovascular - RRR no m/r/g, no JVD Lungs: Clear to auscultation, No wheezing, use of accessory muscles, no crackles Skin - Skin warm and dry, no wounds or rashes Abdomen - Normal bowel sounds, abdomen soft and nontender Extremities - No edema, cyanosis or clubbing Musculoskeletal - 5/5 strength, normal range of motion, no swollen or erythematous joints. Neurological ? Alert and oriented x 3, CN 2-12 grossly intact. Psych: Normal mood and affect Const: Other: Obese, elderly, no acute distress HENMT: Other: Mucous membranes are tacky, no oral pharyngeal erythema, fair dentition, head is normocephalic atraumatic Eyes: Other: Pupils are equal and reactive, no scleral icterus Neck: Other: Large neck circumference, no JVD Resp: Other: Clear to auscultation bilaterally, no increased work of breathing Cardio: Other: Regular rate, regular rhythm, 2+ bilateral radial pedal pulses, no murmur GI: Other: Soft, nontender, nondistended, normoactive bowel sounds Skin: Other: Generalized pallor, non jaundice Neuro: Other: Alert oriented, speech is clear and fluent, no facial asymmetry extraocular movements intact, no localizing neurologic deficits noted during the course of conversation Extrem: Other: No clubbing, cyanosis or edema, 4/5 tapper balance wheel screw hole strength bilaterally Psych: Other: Appropriate mood and affect, pleasant and cooperative Objective Data Vital Signs Vital Signs: Vital Signs - 24 hr 01/10/25 09:50 01/10/25 12:04 01/10/25 14:00 Temperature 97.4 F L Pulse Rate 79 75 75 Respiratory Rate 18 Blood Pressure 176/58 H Pulse Oximetry 96 Oxygen Delivery Fraction of Inspired Oxygen 01/10/25 16:00 01/10/25 20:00 01/10/25 20:00 Temperature Pulse Rate 70 73 Respiratory Rate Blood Pressure Pulse Oximetry Oxygen Delivery Room Air Fraction of Inspired Oxygen 01/10/25 20:25 01/10/25 21:08 01/11/25 00:00 Temperature 96 F L Pulse Rate 74 71 Respiratory Rate 18 Blood Pressure 154/82 H Pulse Oximetry 97 96 Oxygen Delivery Room Air Fraction of Inspired Oxygen 01/11/25 04:00 01/11/25 04:59 01/11/25 08:39 Temperature 96.9 F L Pulse Rate 71 74 76 Respiratory Rate 16 Blood Pressure 160/88 H Pulse Oximetry 98 Oxygen Delivery Fraction of Inspired Oxygen 01/11/25 09:30 01/11/25 09:30 Temperature Pulse Rate 80 Respiratory Rate 20 Blood Pressure Pulse Oximetry 95 Oxygen Delivery Room Air Fraction of Inspired Oxygen 21 Intake/Output Intake/Output: Intake & Output 01/08/25 01/09/25 01/10/25/02/25 23:59 23:59 23:59 23:59 Intake Total 3070 1720 1770 Output Total 1400 1850 1700 Balance 1670 -130 70 Meds/Results Medications: Active Medications Generic Name Dose Route Start Last Admin Trade Name Freq PRN Reason Stop Dose Admin Acetaminophen 650 mg 01/05/25 20:16 Acetaminophen 325 Mg Tablet PO Q4H PRN Mild Pain (1-3) or Fever Albuterol/Ipratropium 3 ml 01/06/25 03:31 Ipratropium 0.5 Mg/Albuterol Sulfate 2.5 Mg Ampul.Neb 3 Ml INHALATION Q6H PRN Dyspnea Alprazolam 0.75 mg 01/06/25 03:30 01/10/25 21:35 Alprazolam (*Crx) 0.25 Mg Tablet PO 0.75 mg HS SADI Administration Alprazolam 1 mg 01/06/25 09:00 01/11/25 08:39 Alprazolam (*Crx) 0.5 Mg Tablet PO 1 mg BID SADI Administration Artificial Tears 1 drop 01/06/25 03:31 Artificial Tears Ophth Soln 15 Ml Bottle EACH EYE QID PRN Dry Eye(S) Aspirin 81 mg 01/06/25 09:00 01/11/25 08:39 Aspirin 81 Mg Enteric Tablet PO 81 mg DAILY SADI Administration Buspirone HCl 20 mg 01/06/25 03:30 01/11/25 08:39 Buspirone Hcl 10 Mg Tablet PO 20 mg TID SADI Administration Calcium Carbonate 200 mg 01/05/25 20:17 01/07/25 11:33 Calcium Carbonate (Tums) 500 Mg (200 Mg Elemental) PO 200 mg Q6H PRN Administration Indigestion Carvedilol 25 mg 01/06/25 09:00 01/11/25 08:39 Carvedilol 25 Mg Tablet PO 25 mg Q12HR SADI Administration Dextrose 12.5 gm 01/05/25 20:19 01/10/25 17:17 Dextrose 50% 25 Gm/50 Ml Syringe IV PUSH 12.5 gm PRN PRN Administration Hypoglycemia Protocol Donepezil HCl 10 mg 01/06/25 09:00 01/11/25 08:39 Donepezil Hcl 5 Mg Tablet PO 10 mg DAILY SADI Administration Fluticasone Propionate 1 spray 01/06/25 09:00 01/11/25 08:40 Fluticasone Propionate 0.05% Na Spr 16 Gm Btl (*Bkc) NASAL 1 spray Q12HR SADI Administration Fluticasone/Umeclidinium/Vilanterol 1 puff 01/06/25 08:00 01/11/25 09:30 Fluticasone/Umeclidin/Vilanter 100-62.5-25 Mcg Ellipta INHALATION 1 puff DAILYRT SADI Administration Glucagon 1 mg 01/05/25 20:19 Glucagon For Inj 1 Mg Vial IM PRN PRN Hypoglycemia Protocol Glucose 15 gm 01/05/25 20:19 01/09/25 07:12 Glucose Oral Gel 15 Gm Of Glucse In 37.5 Gm Tube PO 15 gm PRN PRN Administration Hypoglycemia Protocol Guaifenesin 600 mg 01/06/25 09:00 01/11/25 08:39 Guaifenesin 12 Hr 600 Mg Tabcr PO 600 mg Q12HR SADI Administration Hydralazine HCl 10 mg 01/05/25 20:20 Hydralazine Hcl 20 Mg/Ml Vial IV PUSH Q6H PRN SBP greater than 180 Hydrocortisone 1 applic 01/06/25 03:31 Hydrocortisone 1% 30 Gm Cream TOPICAL Q12HR PRN itching Dextrose 1,000 mls @ 100 mls/hr 01/05/25 20:19 Dextrose 5% 1,000 Ml IVPB PRN PRN Hypoglycemia Protocol Ceftriaxone Sodium 1 gm in 50 mls @ 100 mls/hr 01/09/25 11:00 01/10/25 13:06 Rocephin 1 Gm/Ns 50 Ml IVPB Infused Q24H SADI Infusion Insulin Aspart 3 - 6 units 01/06/25 08:00 01/11/25 08:37 Insulin Aspart (*Bkc) 100 Units/Ml SUB-Q Not Given TIDWM [facility] Protocol Insulin Aspart 5 units 01/10/25 08:00 01/11/25 08:38 Insulin Aspart (*Bkc) 100 Units/Ml SUB-Q Not Given TIDWM SADI Insulin Glargine 20 units 01/09/25 21:00 01/10/25 21:37 Insulin Glargine (*Bkc) 100 Units/Ml SUB-Q Not Given HS [facility] Loratadine 10 mg 01/06/25 09:00 01/11/25 08:38 Loratadine 10 Mg Tablet PO 10 mg QAM SADI Administration Metronidazole 500 mg 01/09/25 11:00 01/11/25 08:40 Metronidazole 500 Mg Tablet PO 500 mg BID SADI Administration Montelukast Sodium 10 mg 01/06/25 21:00 01/10/25 21:35 Montelukast Sodium 10 Mg Tablet PO 10 mg HS SADI Administration Multi-Ingred Cream/Lotion/Oil/Oint 1 applic 01/06/25 09:00 01/11/25 08:41 Eucerin Cream 120 Gm Jar TOPICAL 1 applic DAILY SADI Administration Ondansetron HCl 4 mg 01/05/25 20:17 Ondansetron Inj 4 Mg/2 Ml Vial IV PUSH Q6H PRN Nausea And Vomiting Pantoprazole Sodium 40 mg 01/06/25 09:00 01/11/25 08:39 Pantoprazole 40 Mg Tablet PO 40 mg DAILY SADI Administration Paroxetine HCl 60 mg 01/06/25 09:00 01/11/25 08:39 Paroxetine 20 Mg Tablet PO 60 mg DAILY SADI Administration Polyethylene Glycol 17 gm 01/06/25 03:31 Polyethylene Glycol 3350 17 Gm Powd.Pack PO BID PRN Constipation Tramadol HCl 50 mg 01/06/25 03:31 01/06/25 05:17 Tramadol Hcl (*Crx) 50 Mg Tablet PO 50 mg Q6H PRN Administration Pain 4-10 Radiology Results: ITS Impressions Chest X-Ray 01/05/25 13:01 IMPRESSION: No focal infiltrate or effusion. Head CT 01/05/25 14:21 Impression: No acute intracranial hemorrhage or suspicious mass effect. 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 No acute fractures. Interval enlargement of a focus of decreased attenuation within the body of the pancreas when compared with multiple prior studies with atrophy of the tail of the pancreas. Follow-up examination (nonemergently) with contrast-enhanced MRI/MRCP with pancreatic mass protocol is recommended. Interval enlargement of the right ovary, an abnormal finding in a patient of this age, for which focused ultrasound (nonemergently) may be performed. Pelvis Ultrasound 01/06/25 17:26 IMPRESSION: Nonvisualization of the uterus and ovaries. MRCP 01/08/25 16:48 IMPRESSION: 1. 6 mm simple appearing nonenhancing cystic lesion at the body the pancreas. Recommend 2 year follow-up pre and postcontrast MRI. 2. Small sliding-type hiatal hernia with postoperative changes suggesting possible prior Kwesi fundoplication. 3. Diverticulosis. Pelvis MRI 01/08/25 17:19 IMPRESSION: 1. 1.6 cm right adnexal cyst. Otherwise normal bilateral ovaries. 2. Diverticulitis at the junction of the descending and sigmoid colon. Shoulder X-Ray 01/10/25 13:08 IMPRESSION: 1. Mild right glenohumeral and acromioclavicular osteoarthritis. No acute osseous abnormality. 2. Subtle amorphous calcification along the middle facet of the greater tuberosity which can be seen with infraspinatus calcific tendinitis. Labs Labs: Laboratory Results - last 24 hr 01/10/25 01/10/25 01/10/25 11:34 16:37 17:04 POC Capillary Glucose 136 H 56 L* 56 L* 01/10/25 01/10/25 01/11/25 17:44 20:31 08:36 POC Capillary Glucose 196 H 167 H 152 H Quality VTE Prophylaxis VTE prophylaxis: mechanical ordered (SCDs) and pharmacologic ordered Hospitalist MIPS Advance Care Plan I have confirmed that the patient's Advanced Care Plan is present, code status is documented, or surrogate decision maker is listed in patient medical record.: Yes Medication Reconciliation I have utilized all available resources to obtain, update and review the patients current medications (includes all prescriptions, OTC, herbals, cannabis, and nutritional supplements).: Yes
[2025-01-11 10:04] LABS: Hematocrit 34.4 % (37.0-47.0); Hemoglobin 10.6 g/dL (12.0-15.0); Mean Corpuscular HGB Conc 30.8 g/dl (32-36); Mean Corpuscular Hemoglobin 26.2 pg (26-34); Mean Corpuscular Volume 85.1 fl (80-100); Mean Platelet Volume 10.2 fl (7.4-10.4); Platelet Count Result 221 k/mm3 (150-375); Red Blood Count 4.04 M/mm3 (4.2-5.4); Red Cell Distribution Width 14.6 % (11.5-14.5); White Blood Count 8.4 K/mm3 (4.5-10.0)
[2025-01-11 10:18] LABS: Alanine Aminotransferase 23 U/L (6-35); Albumin Level 3.5 g/dL (3.5-5.1); Alkaline Phosphatase 96 U/L (38-126); Anion Gap 6 mmol/L (4-12); Aspartate Amino Transferase 32 U/L (14-36); Bilirubin,Total 0.3 mg/dL (0.2-1.3); Blood Urea Nitrogen 16 mg/dL (7-17); Calcium 9.1 mg/dL (8.4-10.2); Carbon Dioxide 26 mmol/L (22-30); Chloride 105 mmol/L (98-107); Estimated CRCL calculation 42 ml/min; Estimated Glomerular Filt Rate 52; Glucose 221 mg/dL (65-110); Potassium 4.1 mmol/L (3.4-5.0); Sodium 137 mmol/L (137-145)
[2025-01-11 11:44] LABS: Glucose Point of Care 231 mg/dl (65-105)
[2025-01-11] MEDS: INSULIN ASPART (*BKC) 100 UNITS/ML SUB-Q ×4 (12:16→17:49)
[2025-01-11 16:47] LABS: Glucose Point of Care 204 mg/dl (65-105)
[2025-01-11 20:48] LABS: Glucose Point of Care 242 mg/dl (65-105)
[2025-01-11] MEDS: ALPRAZolam (*CRX) 0.25 MG TABLET 0.75 MG PO (21:00)
[2025-01-11] MEDS: INSULIN GLARGINE (*BKC) 100 UNITS/ML 20 UNITS SUB-Q (21:01)
[2025-01-11] MEDS: AMOXICILLIN/CLAVULANATE K 875-125 MG TAB 1 TABLET PO (21:01)
[2025-01-11] MEDS: MONTELUKAST SODIUM 10 MG TABLET PO (21:01)
[2025-01-12] VITALS (11 sets, daily range): BP systolic 128–168; BP diastolic 60–83; PULSE 70–102; RESP 16–18; TEMP 36.1–36.6; O2SAT 97–100
[2025-01-12 06:45] LABS: Hematocrit 35.1 % (37.0-47.0); Hemoglobin 10.9 g/dL (12.0-15.0); Mean Corpuscular HGB Conc 31.1 g/dl (32-36); Mean Corpuscular Hemoglobin 26.6 pg (26-34); Mean Corpuscular Volume 85.6 fl (80-100); Mean Platelet Volume 10.4 fl (7.4-10.4); Platelet Count Result 236 k/mm3 (150-375); Red Cell Distribution Width 14.8 % (11.5-14.5); White Blood Count 9.6 K/mm3 (4.5-10.0)
[2025-01-12 06:52] LABS: Alanine Aminotransferase 21 U/L (6-35); Albumin Level 3.6 g/dL (3.5-5.1); Alkaline Phosphatase 102 U/L (38-126); Anion Gap 6 mmol/L (4-12); Aspartate Amino Transferase 28 U/L (14-36); Bilirubin,Total 0.4 mg/dL (0.2-1.3); Blood Urea Nitrogen 17 mg/dL (7-17); Calcium 9.4 mg/dL (8.4-10.2); Carbon Dioxide 28 mmol/L (22-30); Chloride 106 mmol/L (98-107); Estimated CRCL calculation 45 ml/min; Estimated Glomerular Filt Rate 56; Glucose 155 mg/dL (65-110); Potassium 4.1 mmol/L (3.4-5.0); Sodium 140 mmol/L (137-145)
[2025-01-12] MEDS: LORATADINE 10 MG TABLET PO (08:20)
[2025-01-12] MEDS: busPIRone HCL 10 MG TABLET 20 MG PO ×3 (08:21→17:38)
[2025-01-12] MEDS: PARoxetine 20 MG TABLET 60 MG PO (08:21)
[2025-01-12] MEDS: DONEPEZIL HCL 5 MG TABLET 10 MG PO (08:21)
[2025-01-12] MEDS: AMOXICILLIN/CLAVULANATE K 875-125 MG TAB 1 TABLET PO ×2 (08:21→21:22)
[2025-01-12] MEDS: ALPRAZolam (*CRX) 0.5 MG TABLET 1 MG PO ×2 (08:21→17:38)
[2025-01-12] MEDS: guaiFENesin 12 HR 600 MG TABCR PO ×2 (08:22→21:23)
[2025-01-12] MEDS: PANTOPRAZOLE 40 MG TABLET PO (08:22)
[2025-01-12] MEDS: ASPIRIN 81 MG ENTERIC TABLET PO (08:22)
[2025-01-12] MEDS: carvediloL 25 MG TABLET PO ×2 (08:22→21:22)
[2025-01-12] MEDS: FLUTICASONE PROPIONATE 0.05% NA SPR 16 GM BTL (*BKC) 1 SPRAY NASAL (08:23)
[2025-01-12] MEDS: INSULIN ASPART (*BKC) 100 UNITS/ML SUB-Q ×4 (08:32→12:49)
[2025-01-12 08:50] LABS: Glucose Point of Care 173 mg/dl (65-105)
[2025-01-12] MEDS: FLUTICASONE/UMECLIDIN/VILANTER 100-62.5-25 MCG ELLIPTA 1 PUFF INHALATION (08:54)
--- NOTE | 2025-01-12 09:31 | PM.DS ---
DS: Admitting Diagnosis Discharge Date 01/13/2025 Admitting Diagnosis Urinary tract infection DS: Discharge Diagnosis Discharge Diagnosis (1) UTI (urinary tract infection): Code(s): N39.0 - Urinary tract infection, site not specified Status: Acute Assessment and Plan: Started on ceftriaxone, growing E coli changed to Keflex since sensitive. Change to ceftriaxone since diverticulitis on MRI. S/P Ceftriaxone Started Augmentin until 01/13 (2) Hallucinations: Code(s): R44.3 - Hallucinations, unspecified Status: Acute Assessment and Plan: Likely delirium 2/2 UTI, toxic/metabolic --reports no episodes overnight, remembers having hallucinations --Further workup if continue (3) Right ovarian enlargement: Code(s): N83.8 - Other noninflammatory disorders of ovary, fallopian tube and broad ligament Status: Acute Assessment and Plan: Unable to visualize with abdominal ultrasound. Discussed with ultrasound and unable to complete transvaginal ultrasound because patient was having hallucinations. Also spoke with radiologist and would on likely be visualized with transvaginal ultrasound 01/08 MRI Pelvis 1. 1.6 cm right adnexal cyst. Otherwise normal bilateral ovaries. 2. Diverticulitis at the junction of the descending and sigmoid colon. --Outpatient follow up with gynecology (4) AMS (altered mental status): Code(s): R41.82 - Altered mental status, unspecified Status: Acute Assessment and Plan: See hallucinations Delirium as noted (5) Pancreatic mass: Code(s): K86.89 - Other specified diseases of pancreas Status: Acute Assessment and Plan: Increased size of pancreatic mass from prior. 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 No acute fractures. Interval enlargement of a focus of decreased attenuation within the body of the pancreas when compared with multiple prior studies with atrophy of the tail of the pancreas. Follow-up examination (nonemergently) with contrast-enhanced MRI/MRCP with pancreatic mass protocol is recommended. Interval enlargement of the right ovary, an abnormal finding in a patient of this age, for which focused ultrasound (nonemergently) may be performed 01/08 MRCP 1. 6 mm simple appearing nonenhancing cystic lesion at the body the pancreas. Recommend 2 year follow-up pre and postcontrast MRI. 2. Small sliding-type hiatal hernia with postoperative changes suggesting possible prior Kwesi fundoplication. 3. Diverticulosis. (6) SHAWN (acute kidney injury): Code(s): N17.9 - Acute kidney failure, unspecified Status: Acute Assessment and Plan: RESOLVED Had mild SHAWN likely 2/2 IV contrast, UTI, or mild dehydration. Resolved with fluids --Urine sodium 54, creat 45 FeNa 1.1% indeterminate intrinsic or prerenal (7) Diverticulitis: Code(s): K57.92 - Diverticulitis of intestine, part unspecified, without perforation or abscess without bleeding Status: Acute Assessment and Plan: MRI pelvis showed diverticulitis at the junction of the descending and signmoid colon --Change Keflex (for UTI) to Ceftiaxone and add Flagyl 01/09- --5 days is likely adequate since uncomplicated but still present on MRI and keflex doesn't cover well, so continue to 01/13. Started Augmentin until 01/13 (8) Hypoglycemia: Code(s): E16.2 - Hypoglycemia, unspecified Status: Inactive Assessment and Plan: Blood sugar low before dinner yesterday, 54. up to 319 at 2100, then 42 again this morning. --Decrease Lantus from 45>20 --Add mealtime insulin 5 units TID --Stop glipizide and jardiance. Would consider discontinuing at discharge. --Will need to titrate further DS: Summary Hospital Course Hospital Course: 79-year-old female with a past medical history of dementia, chronic hypoxic respiratory failure on home oxygen, chronic kidney disease stage 3, type 2 diabetes mellitus, GERD, congestive heart failure with preserved ejection fraction, CVA and mild dementia who presented to the ER via EMS from [facility] due to hallucinations. The patient reports that she was seeing people that were not there that were trying to show her papers and she was trying to explain how to operate something to them. Nursing staff tells me that the patient was hallucinating most of the night and was convinced that [place] was [place]. This morning the patient was more cognizant and was alert oriented to person, month, year and the name of the current president but was confused as to which hospital she was in. However she could tell me that she was on the 3rd floor and 2 what room she was assigned. She reports that she has been having 3 weeks or more of dysuria and increased urinary urgency. She denies any hematuria. She denies any recent heat a fevers or chills. She has not had any nausea or vomiting. She has had decreased appetite. She denies any flank pain or back pain beyond her chronic discomfort. She is not noticing any increased shortness of breath. Despite her history of dementia she is a fair historian. She is cognizant and aware that she was hallucinating yesterday. Although it does not seem the that she realizes home which she was hallucinating throughout the night. Patient was admitted in the setting of UTI and diverticulitis. Pelvic MRI shows:1. 1.6 cm right adnexal cyst. Otherwise normal bilateral ovaries. 2. Diverticulitis at the junction of the descending and sigmoid colon. Abdomen MRI with MRCP:1. 6 mm simple appearing nonenhancing cystic lesion at the body the pancreas. Recommend 2 year follow-up pre and postcontrast MRI. 2. Small sliding-type hiatal hernia with postoperative changes suggesting possible prior Kwesi fundoplication. 3. Diverticulosis. Abdomen/pelvis CT:Severe degenerative disease within the lower thoracic and lumbosacral spines, demonstrating progression from examination dated 09/28/2022. No acute fractures. Interval enlargement of a focus of decreased attenuation within the body of the pancreas when compared with multiple prior studies with atrophy of the tail of the pancreas. Follow-up examination (nonemergently) with contrast-enhanced MRI/MRCP with pancreatic mass protocol is recommended. Interval enlargement of the right ovary, an abnormal finding in a patient of this age, for which focused ultrasound (nonemergently) may be performed. Patient had a fall yesterday and was unable to discharge. All the imaging study has been negative. Patient needs to follow up with Neurosurgery as an outpatient Status at Discharge Cognitive/behavioral status at discharge: Stable Time Spent with Patient Time attestation: Total time spent providing and/or coordinating discharge services: 45 minutes Exam Narrative: General - Awake and alert. No acute distress Eyes - PERRLA, EOM intact ENT - No thrush, No erythema Neck - No noticeable or palpable swelling Lymph Nodes - No lymphadenopathy Cardiovascular - RRR no m/r/g, no JVD Lungs: Clear to auscultation, No wheezing, use of accessory muscles, no crackles Skin - Skin warm and dry, no wounds or rashes Abdomen - Normal bowel sounds, abdomen soft and nontender Extremities - No edema, cyanosis or clubbing Musculoskeletal - 5/5 strength, normal range of motion, no swollen or erythematous joints. Neurological ? Alert and oriented x 3, CN 2-12 grossly intact. Psych: Normal mood and affect Const: Other: Obese, elderly, no acute distress HENMT: Other: Mucous membranes are tacky, no oral pharyngeal erythema, fair dentition, head is normocephalic atraumatic Eyes: Other: Pupils are equal and reactive, no scleral icterus Neck: Other: Large neck circumference, no JVD Resp: Other: Clear to auscultation bilaterally, no increased work of breathing Cardio: Other: Regular rate, regular rhythm, 2+ bilateral radial pedal pulses, no murmur GI: Other: Soft, nontender, nondistended, normoactive bowel sounds Skin: Other: Generalized pallor, non jaundice Neuro: Other: Alert oriented, speech is clear and fluent, no facial asymmetry extraocular movements intact, no localizing neurologic deficits noted during the course of conversation Extrem: Other: No clubbing, cyanosis or edema, 4/5 kiln setter strength bilaterally Psych: Other: Appropriate mood and affect, pleasant and cooperative DS: Data Data Completed and Pending Labs on day of discharge: Labs from last 24 hours 01/12/25 01/12/25 01/11/25 08:06 05:52 19:55 WBC 9.6 RBC 4.10 L Hgb 10.9 L Hct 35.1 L MCV 85.6 MCH 26.6 MCHC 31.1 L RDW 14.8 H Plt Count 236 MPV 10.4 Sodium 140 Potassium 4.1 Chloride 106 Carbon Dioxide 28 Anion Gap 6 BUN 17 Creatinine 0.96 Estim Creat Clear Calc 45 Estimated GFR 56 L Glucose 155 H POC Capillary Glucose 173 H 242 H Calcium 9.4 Total Bilirubin 0.4 AST 28 ALT 21 Alkaline Phosphatase 102 Total Protein 6.0 L Albumin 3.6 01/11/25 01/11/25 01/11/25 16:38 11:36 09:56 WBC 8.4 RBC 4.04 L Hgb 10.6 L Hct 34.4 L MCV 85.1 MCH 26.2 MCHC 30.8 L RDW 14.6 H Plt Count 221 MPV 10.2 Sodium 137 Potassium 4.1 Chloride 105 Carbon Dioxide 26 Anion Gap 6 BUN 16 Creatinine 1.03 H Estim Creat Clear Calc 42 Estimated GFR 52 L Glucose 221 H POC Capillary Glucose 204 H 231 H Calcium 9.1 Total Bilirubin 0.3 AST 32 ALT 23 Alkaline Phosphatase 96 Total Protein 6.0 L Albumin 3.5 Imaging Radiologist's impression: ITS Impressions Chest X-Ray 01/05/25 13:01 IMPRESSION: No focal infiltrate or effusion. Head CT 01/05/25 14:21 Impression: No acute intracranial hemorrhage or suspicious mass effect. 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 No acute fractures. Interval enlargement of a focus of decreased attenuation within the body of the pancreas when compared with multiple prior studies with atrophy of the tail of the pancreas. Follow-up examination (nonemergently) with contrast-enhanced MRI/MRCP with pancreatic mass protocol is recommended. Interval enlargement of the right ovary, an abnormal finding in a patient of this age, for which focused ultrasound (nonemergently) may be performed. Pelvis Ultrasound 01/06/25 17:26 IMPRESSION: Nonvisualization of the uterus and ovaries. MRCP 01/08/25 16:48 IMPRESSION: 1. 6 mm simple appearing nonenhancing cystic lesion at the body the pancreas. Recommend 2 year follow-up pre and postcontrast MRI. 2. Small sliding-type hiatal hernia with postoperative changes suggesting possible prior Kwesi fundoplication. 3. Diverticulosis. Pelvis MRI 01/08/25 17:19 IMPRESSION: 1. 1.6 cm right adnexal cyst. Otherwise normal bilateral ovaries. 2. Diverticulitis at the junction of the descending and sigmoid colon. Shoulder X-Ray 01/10/25 13:08 IMPRESSION: 1. Mild right glenohumeral and acromioclavicular osteoarthritis. No acute osseous abnormality. 2. Subtle amorphous calcification along the middle facet of the greater tuberosity which can be seen with infraspinatus calcific tendinitis. Head CT 01/12/25 16:06 IMPRESSION: No acute intracranial findings. Shoulder X-Ray 01/12/25 16:13 IMPRESSION: possible fracture in the area of the left acromioclavicular joint. CT evaluation advised. Cervical Spine CT 01/13/25 09:16 Impression: No fracture or subluxation of the cervical spine. Degenerative changes at C6-C7, as above. Shoulder CT 01/13/25 09:17 IMPRESSION: No acute fracture or dislocation. 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 Humerus X-Ray 01/13/25 09:52 IMPRESSION: 1. Chronic nonunited lateral left clavicle fracture. No acute osseous abnormality. Forearm X-Ray 01/13/25 10:22 IMPRESSION: 1. Polyarticular osteoarthritis as detailed above. No acute osseous abnormality. Hip/Pelvis X-Ray 01/13/25 10:23 Impression: 1: No acute fracture. Thoracic/Lumbar Spine CT 01/13/25 10:24 IMPRESSION: 1. Chronic T10 compression fracture and L2 burst fracture, both with prior vertebroplasty. No acute osseous abnormality. 2. Severe lower lumbar spondylosis with mild spondylosis and more cephalad lumbar and thoracic spine. Discharge Plan Discharge Attending physician on discharge: Axel Leiva Discharging Clinician: Axel Leiva Anticipated Discharge Date/Time: 01/12/25 09:46 Patient Disposition: NH Shelter/Asst Living Activity: as tolerated Diet: diabetic Discharge Instructions: Perform contrast-enhanced MRI/MRCP with pancreatic mass protocol is recommended as outpatient Patient needs to follow up with Neurosurgery as an outpatient Complete Augmentin until 0 6/0 4 Reduced insulin dosage hypoglycemia. Please follow-up with the PCP and adjust the dose Discontinued glipizide due to hypoglycemia Check blood pressure 1 to 2 times a day. Record and bring into your doctor for review. Call your doctor if your blood pressure is greater than 180/110 or less than 90/45. Walk with cane or other assist device. Take precautions to avoid falls. Rise slowly from a lying or sitting position. Pause before standing or walking. Contact your doctor or call 911 and come to the Emergency Room if you have any type of trauma, lightheadedness with standing or other worrisome symptoms. Avoid NSAIDs (ibuprofen, naproxen, Aleve). Tylenol is safe to take. Follow-up with your primary care provider in 1-2 weeks. Please call for appointment. Thank you for using [facility] for your health care needs. Patient Instructions: Antibiotic Form, Heart Failure (GEN) Patient Language: [place] Stand Alone Forms: General Discharge Information Follow-up/Referrals: Bryce Rhodes MD [Primary Care Provider] - Discharge Medications: New calcium carbonate 500 mg calcium (1,250 mg) Tablet,Chewable 200 mg PO Q6H PRN (Reason: Indigestion) Qty: 10 0RF amoxicillin-pot clavulanate 875-125 mg tablet 1 tablet PO Q12H Qty: 4 0RF Rx Instructions: Complete the course 0 6/0 4 methenamine hippurate 1 gram tablet 1 g PO BID Qty: 30 0RF Continued acetaminophen 325 mg capsule 650 mg PO Q6H PRN (Reason: Pain (Scale Score 1-3)) alprazolam 0.5 mg tablet 0.75 mg PO HS aspirin [Adult Low Dose Aspirin] 81 mg tablet,delayed release (DR/EC) 81 mg PO DAILY carvedilol [Coreg] 25 mg tablet 25 mg PO BID Rx Instructions: must administer with a meal/food donepezil 5 mg tablet 10 mg PO DAILY furosemide 20 mg tablet 20 mg PO QAM glucose [Dex4 Glucose] 4 gram tablet,chewable 4 gm PO Q15M PRN (Reason: Hypoglycemia) Rx Instructions: until symptoms of low blood sugar are controlled ipratropium-albuterol 0.5 mg-3 mg(2.5 mg base)/3 mL solution for nebulization 3 ml INHALATION Q6H PRN (Reason: Dyspnea) Januvia 100 mg tablet 100 mg PO QAM methocarbamol 750 mg tablet 750 mg PO TID PRN (Reason: Muscle Spasm) montelukast 10 mg tablet 10 mg PO HS multivitamin Tablet 1 tablet PO DAILY pantoprazole 40 mg tablet,delayed release (DR/EC) 40 mg PO DAILY paroxetine HCl 40 mg tablet 60 mg PO DAILY vitamin B complex [B Complex-Vitamin B12] Tablet 1 tablet PO DAILY Artificial Tears([id number]) 1-0.2-0.2 % Drops 1 drp EACH EYE QID PRN (Reason: Dry Eye(S)) Qty: 15 0RF fluticasone propionate 50 mcg/actuation [place],Suspension 1 spray intranasal Q12HR Qty: 16 0RF guaifenesin [Mucus Relief ER] 600 mg Tablet Extended Release 12hr 600 mg PO Q12HR Qty: 14 0RF hydrocortisone 1 % Cream 1 applic topical Q12HR PRN (Reason: itching) Qty: 28.35 0RF insulin aspart U-100 [Novolog U-100 Insulin aspart] 100 unit/mL Solution 4 - 8 unit subcut TIDWM Qty: 10 0RF Protocol: Insulin Corrective High-Dose Condition: glucose < 70 mg/dl Dose/Route: Follow hypoglycemia order Condition: glucose 70-200 mg/dl Dose/Route: No additional insulin Condition: glucose 201-250 mg/dl Dose/Route: 4 units sub-Q Condition: glucose 251-300 mg/dl Dose/Route: 5 units sub-Q Condition: glucose 301-350 mg/dl Dose/Route: 6 units sub-Q Condition: glucose 351-400 mg/dl Dose/Route: 8 units sub-Q Condition: glucose > 400 mg/dl Dose/Route: Call Protocol Text: *No Correction Dose at Bedtime* Rx Instructions: glucose < 70 mg/dl Follow hypoglycemia order; glucose 70-200 mg/dl No additional insulin; glucose 201-250 mg/dl 4 units sub-Q; glucose 251-300 mg/dl 5 units sub-Q; glucose 301-350 mg/dl 6 units sub-Q glucose 351-400 mg/dl 8 units sub-Q; glucose > 400 mg/dl Call Minermayur Creme Cream 1 applic topical DAILY Qty: 113 0RF Trelegy Ellipta 100-62.5-25 mcg blister with device 1 inh inhalation DAILY Qty: 60 0RF albuterol sulfate 90 mcg/actuation HFA aerosol inhaler 2 inhalation INHALATION 4-6XD PRN (Reason: Shortness Of Breath Or Wheezing) Qty: 8.5 0RF polyethylene glycol 3350 [Miralax] 17 gram/dose powder 17 gm PO BID PRN (Reason: Constipation) atorvastatin 20 mg Tablet 20 mg PO HS multivitamin [Daily-[place]] Tablet 1 tablet PO DAILY alprazolam 0.5 mg tablet 1 mg PO BID buspirone 10 mg tablet 20 mg PO TID Robitussin DM Max 10 ml PO Q4H PRN (Reason: Cough) biotin 2,500 mcg PO DAILY tramadol 50 mg tablet 50 mg PO Q6H PRN (Reason: Pain (Scale Score 4-6)) loratadine 10 mg Tablet 10 mg PO QAM Qty: 30 0RF ondansetron 4 mg tablet,disintegrating 4 mg PO Q8H PRN (Reason: nausea and vomiting) Qty: 14 0RF Changed insulin glargine [Lantus U-100 Insulin] 100 unit/mL Solution 20 unit subcut HS Qty: 30 0RF Discontinued glipizide 10 mg Tablet 10 mg PO DAILY acetaminophen 500 mg capsule 500 mg PO QID PRN (Reason: Pain (Scale Score 4-6)) Date of admission: 01/06/25 15:13 Primary Care Provider: Bryce Rhodes Admitting Provider: Smita Crane Attending physician on admission: Caroline Wise Condition: Stable
[2025-01-12 12:37] LABS: Glucose Point of Care 272 mg/dl (65-105)
[2025-01-12 14:51] LABS: Glucose Point of Care 267 mg/dl (65-105)
--- NOTE | 2025-01-12 15:53 | P.PNIM_ITS ---
Progress Note: A&P Assessment and Plan (1) UTI (urinary tract infection): Code(s): N39.0 - Urinary tract infection, site not specified Status: Acute Assessment and Plan: Started on ceftriaxone, growing E coli changed to Keflex since sensitive. Change to ceftriaxone since diverticulitis on MRI. S/P Ceftriaxone Started Augmentin until 01/13 (2) Hallucinations: Code(s): R44.3 - Hallucinations, unspecified Status: Acute Assessment and Plan: Likely delirium 2/2 UTI, toxic/metabolic --reports no episodes overnight, remembers having hallucinations --Further workup if continue (3) Right ovarian enlargement: Code(s): N83.8 - Other noninflammatory disorders of ovary, fallopian tube and broad ligament Status: Acute Assessment and Plan: Unable to visualize with abdominal ultrasound. Discussed with ultrasound and unable to complete transvaginal ultrasound because patient was having hallucina tions. Also spoke with radiologist and would on likely be visualized with transvaginal ultrasound 01/08 MRI Pelvis 1. 1.6 cm right adnexal cyst. Otherwise normal bilateral ovaries. 2. Diverticulitis at the junction of the descending and sigmoid colon. --Outpatient follow up with gynecology (4) AMS (altered mental status): Code(s): R41.82 - Altered mental status, unspecified Status: Acute Assessment and Plan: See hallucinations Delirium as noted (5) Pancreatic mass: Code(s): K86.89 - Other specified diseases of pancreas Status: Acute Assessment and Plan: Increased size of pancreatic mass from prior. 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 No acute fractures. Interval enlargement of a focus of decreased attenuation within the body of the pancreas when compared with multiple prior studies with atrophy of the tail of the pancreas. Follow-up examination (nonemergently) with contrast-enhanced MRI/MRCP with pancreatic mass protocol is recommended. Interval enlargement of the right ovary, an abnormal finding in a patient of this age, for which focused ultrasound (nonemergently) may be performed 01/08 MRCP 1. 6 mm simple appearing nonenhancing cystic lesion at the body the pancreas. Recommend 2 year follow-up pre and postcontrast MRI. 2. Small sliding-type hiatal hernia with postoperative changes suggesting possible prior Kwesi fundoplication. 3. Diverticulosis. (6) SHAWN (acute kidney injury): Code(s): N17.9 - Acute kidney failure, unspecified Status: Acute Assessment and Plan: RESOLVED Had mild SHAWN likely 2/2 IV contrast, UTI, or mild dehydration. Resolved with fluids --Urine sodium 54, creat 45 FeNa 1.1% indeterminate intrinsic or prerenal (7) Diverticulitis: Code(s): K57.92 - Diverticulitis of intestine, part unspecified, without perforation or abscess without bleeding Status: Acute Assessment and Plan: MRI pelvis showed diverticulitis at the junction of the descending and signmoid colon --Change Keflex (for UTI) to Ceftiaxone and add Flagyl 01/09- --5 days is likely adequate since uncomplicated but still present on MRI and keflex doesn't cover well, so continue to 01/13. Started Augmentin until 01/13 (8) Hypoglycemia: Code(s): E16.2 - Hypoglycemia, unspecified Status: Inactive Assessment and Plan: Blood sugar low before dinner yesterday, 54. up to 319 at 2100, then 42 again this morning. --Decrease Lantus from 45>20 --Add mealtime insulin 5 units TID --Stop glipizide and jardiance. Would consider discontinuing at discharge. --Will need to titrate further Subjective Date/time seen: 01/12/25 15:53 Interval history: holding discharge due to fall. Ordered CT scan of head and right shoulder x- ray Review of Systems Review of Systems: 12 systems were reviewed with pertinent positives and negatives per HPI. Except as documented in the HPI, all other systems were reviewed and are negative. Exam Narrative: General - Awake and alert. No acute distress Eyes - PERRLA, EOM intact ENT - No thrush, No erythema Neck - No noticeable or palpable swelling Lymph Nodes - No lymphadenopathy Cardiovascular - RRR no m/r/g, no JVD Lungs: Clear to auscultation, No wheezing, use of accessory muscles, no crackles Skin - Skin warm and dry, no wounds or rashes Abdomen - Normal bowel sounds, abdomen soft and nontender Extremities - No edema, cyanosis or clubbing Musculoskeletal - 5/5 strength, normal range of motion, no swollen or erythematous joints. Neurological ? Alert and oriented x 3, CN 2-12 grossly intact. Psych: Normal mood and affect Const: Other: Obese, elderly, no acute distress HENMT: Other: Mucous membranes are tacky, no oral pharyngeal erythema, fair dentition, head is normocephalic atraumatic Eyes: Other: Pupils are equal and reactive, no scleral icterus Neck: Other: Large neck circumference, no JVD Resp: Other: Clear to auscultation bilaterally, no increased work of breathing Cardio: Other: Regular rate, regular rhythm, 2+ bilateral radial pedal pulses, no murmur GI: Other: Soft, nontender, nondistended, normoactive bowel sounds Skin: Other: Generalized pallor, non jaundice Neuro: Other: Alert oriented, speech is clear and fluent, no facial asymmetry extraocular movements intact, no localizing neurologic deficits noted during the course of conversation Extrem: Other: No clubbing, cyanosis or edema, 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 Psych: Other: Appropriate mood and affect, pleasant and cooperative Objective Data Vital Signs Vital Signs: Vital Signs - 24 hr 01/11/25 16:00 01/11/25 19:13 01/11/25 20:00 Temperature Pulse Rate 76 Respiratory Rate Blood Pressure Pulse Oximetry 95 Oxygen Delivery Room Air Room Air 01/11/25 20:00 01/11/25 21:11 01/12/25 00:00 Temperature 97.7 F Pulse Rate 83 80 81 Respiratory Rate 16 Blood Pressure 163/82 H Pulse Oximetry 100 Oxygen Delivery 01/12/25 04:00 01/12/25 05:19 01/12/25 08:00 Temperature 97.0 F L Pulse Rate 74 80 Respiratory Rate 16 Blood Pressure 142/82 H Pulse Oximetry 97 Oxygen Delivery Room Air 01/12/25 08:00 01/12/25 08:22 01/12/25 12:00 Temperature Pulse Rate 81 80 70 Respiratory Rate Blood Pressure Pulse Oximetry Oxygen Delivery 01/12/25 15:21 Temperature Pulse Rate 82 Respiratory Rate 18 Blood Pressure 168/83 H Pulse Oximetry 99 Oxygen Delivery Intake/Output Intake/Output: Intake & Output 01/09/25 01/10/25 01/11/25 01/12/25 23:59 23:59 23:59 23:59 Intake Total 1720 1770 650 250 Output Total 1850 3835 189 3855 Balance -130 70 50 -1150 Meds/Results Medications: Active Medications Generic Name Dose Route Start Last Admin Trade Name Freq PRN Reason Stop Dose Admin Acetaminophen 650 mg 01/05/25 20:16 Acetaminophen 325 Mg Tablet PO Q4H PRN Mild Pain (1-3) or Fever Albuterol/Ipratropium 3 ml 01/06/25 03:31 Ipratropium 0.5 Mg/Albuterol Sulfate 2.5 Mg Ampul.Neb 3 Ml INHALATION Q6H PRN Dyspnea Alprazolam 0.75 mg 01/06/25 03:30 01/11/25 21:00 Alprazolam (*Crx) 0.25 Mg Tablet PO 0.75 mg HS SADI Administration Alprazolam 1 mg 01/06/25 09:00 01/12/25 08:21 Alprazolam (*Crx) 0.5 Mg Tablet PO 1 mg BID SADI Administration Amoxicillin/Clavulanate Potassium 1 tablet 01/11/25 21:00 01/12/25 08:21 Amoxicillin/Clavulanate K 875-125 Mg Tab PO 01/13/25 21:01 1 tablet Q12HR SADI Administration Artificial Tears 1 drop 01/06/25 03:31 Artificial Tears Ophth Soln 15 Ml Bottle EACH EYE QID PRN Dry Eye(S) Aspirin 81 mg 01/06/25 09:00 01/12/25 08:22 Aspirin 81 Mg Enteric Tablet PO 81 mg DAILY SADI Administration Buspirone HCl 20 mg 01/06/25 03:30 01/12/25 12:46 Buspirone Hcl 10 Mg Tablet PO 20 mg TID SADI Administration Calcium Carbonate 200 mg 01/05/25 20:17 01/07/25 11:33 Calcium Carbonate (Tums) 500 Mg (200 Mg Elemental) PO 200 mg Q6H PRN Administration Indigestion Carvedilol 25 mg 01/06/25 09:00 01/12/25 08:22 Carvedilol 25 Mg Tablet PO 25 mg Q12HR SADI Administration Dextrose 12.5 gm 01/05/25 20:19 01/10/25 17:17 Dextrose 50% 25 Gm/50 Ml Syringe IV PUSH 12.5 gm PRN PRN Administration Hypoglycemia Protocol Dicyclomine HCl 10 mg 01/11/25 15:06 Dicyclomine Hcl 10 Mg Capsule PO PRN PRN Abdominal Cramping Donepezil HCl 10 mg 01/06/25 09:00 01/12/25 08:21 Donepezil Hcl 5 Mg Tablet PO 10 mg DAILY SADI Administration Fluticasone Propionate 1 spray 01/06/25 09:00 01/12/25 08:23 Fluticasone Propionate 0.05% Na Spr 16 Gm Btl (*Bkc) NASAL 1 spray Q12HR SADI Administration Fluticasone/Umeclidinium/Vilanterol 1 puff 01/06/25 08:00 01/12/25 08:54 Fluticasone/Umeclidin/Vilanter 100-62.5-25 Mcg Ellipta INHALATION 1 puff DAILYRT SADI Administration Glucagon 1 mg 01/05/25 20:19 Glucagon For Inj 1 Mg Vial IM PRN PRN Hypoglycemia Protocol Glucose 15 gm 01/05/25 20:19 01/09/25 07:12 Glucose Oral Gel 15 Gm Of Glucse In 37.5 Gm Tube PO 15 gm PRN PRN Administration Hypoglycemia Protocol Guaifenesin 600 mg 01/06/25 09:00 01/12/25 08:22 Guaifenesin 12 Hr 600 Mg Tabcr PO 600 mg Q12HR SADI Administration Hydralazine HCl 10 mg 01/05/25 20:20 Hydralazine Hcl 20 Mg/Ml Vial IV PUSH Q6H PRN SBP greater than 180 Hydrocortisone 1 applic 01/06/25 03:31 Hydrocortisone 1% 30 Gm Cream TOPICAL Q12HR PRN itching Dextrose 1,000 mls @ 100 mls/hr 01/05/25 20:19 Dextrose 5% 1,000 Ml IVPB PRN PRN Hypoglycemia Protocol Insulin Aspart 3 - 6 units 01/06/25 08:00 01/12/25 12:48 Insulin Aspart (*Bkc) 100 Units/Ml SUB-Q 4 units TIDWM SADI Administration Protocol Insulin Aspart 5 units 01/10/25 08:00 01/12/25 12:49 Insulin Aspart (*Bkc) 100 Units/Ml SUB-Q 5 units TIDWM SADI Administration Insulin Glargine 20 units 01/09/25 21:00 01/11/25 21:01 Insulin Glargine (*Bkc) 100 Units/Ml SUB-Q 20 units HS SADI Administration Loratadine 10 mg 01/06/25 09:00 01/12/25 08:20 Loratadine 10 Mg Tablet PO 10 mg QAM SADI Administration Montelukast Sodium 10 mg 01/06/25 21:00 01/11/25 21:01 Montelukast Sodium 10 Mg Tablet PO 10 mg HS SADI Administration Multi-Ingred Cream/Lotion/Oil/Oint 1 applic 01/06/25 09:00 01/12/25 09:27 Eucerin Cream 120 Gm Jar TOPICAL Not Given DAILY SADI Ondansetron HCl 4 mg 01/05/25 20:17 Ondansetron Inj 4 Mg/2 Ml Vial IV PUSH Q6H PRN Nausea And Vomiting Pantoprazole Sodium 40 mg 01/06/25 09:00 01/12/25 08:22 Pantoprazole 40 Mg Tablet PO 40 mg DAILY SADI Administration Paroxetine HCl 60 mg 01/06/25 09:00 01/12/25 08:21 Paroxetine 20 Mg Tablet PO 60 mg DAILY SADI Administration Polyethylene Glycol 17 gm 01/06/25 03:31 Polyethylene Glycol 3350 17 Gm Powd.Pack PO BID PRN Constipation Tramadol HCl 50 mg 01/06/25 03:31 01/06/25 05:17 Tramadol Hcl (*Crx) 50 Mg Tablet PO 50 mg Q6H PRN Administration Pain 4-10 Radiology Results: ITS Impressions Chest X-Ray 01/05/25 13:01 IMPRESSION: No focal infiltrate or effusion. Head CT 01/05/25 14:21 Impression: No acute intracranial hemorrhage or suspicious mass effect. 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 No acute fractures. Interval enlargement of a focus of decreased attenuation within the body of the pancreas when compared with multiple prior studies with atrophy of the tail of the pancreas. Follow-up examination (nonemergently) with contrast-enhanced MRI/MRCP with pancreatic mass protocol is recommended. Interval enlargement of the right ovary, an abnormal finding in a patient of this age, for which focused ultrasound (nonemergently) may be performed. Pelvis Ultrasound 01/06/25 17:26 IMPRESSION: Nonvisualization of the uterus and ovaries. MRCP 01/08/25 16:48 IMPRESSION: 1. 6 mm simple appearing nonenhancing cystic lesion at the body the pancreas. Recommend 2 year follow-up pre and postcontrast MRI. 2. Small sliding-type hiatal hernia with postoperative changes suggesting possible prior Kwesi fundoplication. 3. Diverticulosis. Pelvis MRI 01/08/25 17:19 IMPRESSION: 1. 1.6 cm right adnexal cyst. Otherwise normal bilateral ovaries. 2. Diverticulitis at the junction of the descending and sigmoid colon. Shoulder X-Ray 01/10/25 13:08 IMPRESSION: 1. Mild right glenohumeral and acromioclavicular osteoarthritis. No acute os seous abnormality. 2. Subtle amorphous calcification along the middle facet of the greater tuberosity which can be seen with infraspinatus calcific tendinitis. Labs Labs: Laboratory Results - last 24 hr 01/11/25 01/11/25 01/12/25 16:38 19:55 05:52 WBC 9.6 RBC 4.10 L Hgb 10.9 L Hct 35.1 L MCV 85.6 MCH 26.6 MCHC 31.1 L RDW 14.8 H Plt Count 236 MPV 10.4 Sodium 140 Potassium 4.1 Chloride 106 Carbon Dioxide 28 Anion Gap 6 BUN 17 Creatinine 0.96 Estim Creat Clear Calc 45 Estimated GFR 56 L Glucose 155 H POC Capillary Glucose 204 H 242 H Calcium 9.4 Total Bilirubin 0.4 AST 28 ALT 21 Alkaline Phosphatase 102 Total Protein 6.0 L Albumin 3.6 01/12/25 01/12/25 01/12/25 08:06 11:49 14:48 WBC RBC Hgb Hct MCV MCH MCHC RDW Plt Count MPV Sodium Potassium Chloride Carbon Dioxide Anion Gap BUN Creatinine Estim Creat Clear Calc Estimated GFR Glucose POC Capillary Glucose 173 H 272 H 267 H Calcium Total Bilirubin AST ALT Alkaline Phosphatase Total Protein Albumin Quality VTE Prophylaxis VTE prophylaxis: mechanical ordered (SCDs) and pharmacologic ordered Hospitalist MIPS Advance Care Plan I have confirmed that the patient's Advanced Care Plan is present, code status is documented, or surrogate decision maker is listed in patient medical record.: Yes Medication Reconciliation I have utilized all available resources to obtain, update and review the patients current medications (includes all prescriptions, OTC, herbals, cannabis, and nutritional supplements).: Yes
[2025-01-12 17:57] LABS: Glucose Point of Care 168 mg/dl (65-105)
[2025-01-12] MEDS: traMADol HCL (*CRX) 50 MG TABLET PO (21:22)
[2025-01-12] MEDS: MONTELUKAST SODIUM 10 MG TABLET PO (21:22)
[2025-01-12] MEDS: ALPRAZolam (*CRX) 0.25 MG TABLET 0.75 MG PO (21:22)
[2025-01-12] MEDS: INSULIN GLARGINE (*BKC) 100 UNITS/ML 20 UNITS SUB-Q (21:23)
[2025-01-12 23:17] LABS: Glucose Point of Care 194 mg/dl (65-105)
[2025-01-13] VITALS: PULSE 88
[2025-01-13 04:00] VITALS: PULSE 76
[2025-01-13 05:17] VITALS: BP 148/83; PULSE 79; RESP 18; TEMP 36.6; O2SAT 100
[2025-01-13 06:26] LABS: Hematocrit 33.6 % (37.0-47.0); Hemoglobin 10.6 g/dL (12.0-15.0); Mean Corpuscular HGB Conc 31.5 g/dl (32-36); Mean Corpuscular Hemoglobin 26.7 pg (26-34); Mean Corpuscular Volume 84.6 fl (80-100); Mean Platelet Volume 10.4 fl (7.4-10.4); Platelet Count Result 213 k/mm3 (150-375); Red Blood Count 3.97 M/mm3 (4.2-5.4); Red Cell Distribution Width 14.8 % (11.5-14.5); White Blood Count 7.9 K/mm3 (4.5-10.0)
[2025-01-13 06:45] LABS: Alanine Aminotransferase 26 U/L (6-35); Albumin Level 3.5 g/dL (3.5-5.1); Alkaline Phosphatase 103 U/L (38-126); Anion Gap 6 mmol/L (4-12); Aspartate Amino Transferase 33 U/L (14-36); Bilirubin,Total 0.3 mg/dL (0.2-1.3); Blood Urea Nitrogen 18 mg/dL (7-17); Calcium 9.3 mg/dL (8.4-10.2); Carbon Dioxide 28 mmol/L (22-30); Chloride 105 mmol/L (98-107); Estimated CRCL calculation 42 ml/min; Estimated Glomerular Filt Rate 52; Glucose 194 mg/dL (65-110); Potassium 4.2 mmol/L (3.4-5.0); Sodium 139 mmol/L (137-145); Total Protein 6.3 g/dL (6.3-8.2)
[2025-01-13 08:00] VITALS: PULSE 70; PULSE 78; RESP 20; O2SAT 97
[2025-01-13 08:03] LABS: Glucose Point of Care 204 mg/dl (65-105)
[2025-01-13 08:18] VITALS: PULSE 78; RESP 20; O2SAT 97
[2025-01-13] MEDS: FLUTICASONE/UMECLIDIN/VILANTER 100-62.5-25 MCG ELLIPTA 1 PUFF INHALATION (08:18)
--- NOTE | 2025-01-13 09:20 | PCNWS ---
Weekly nutritional screen. Patient is tolerating current Diabetic consistent carb diet with adequate intake, 75-100%. No weight loss reported. No nutritional needs at this time.
[2025-01-13] MEDS: PARoxetine 20 MG TABLET 60 MG PO (10:10)
[2025-01-13] MEDS: busPIRone HCL 10 MG TABLET 20 MG PO ×2 (10:10→12:31)
[2025-01-13] MEDS: PANTOPRAZOLE 40 MG TABLET PO (10:10)
[2025-01-13] MEDS: LORATADINE 10 MG TABLET PO (10:10)
[2025-01-13] MEDS: AMOXICILLIN/CLAVULANATE K 875-125 MG TAB 1 TABLET PO (10:10)
[2025-01-13] MEDS: DONEPEZIL HCL 5 MG TABLET 10 MG PO (10:10)
[2025-01-13] MEDS: carvediloL 25 MG TABLET PO (10:10)
[2025-01-13] MEDS: ASPIRIN 81 MG ENTERIC TABLET PO (10:10)
[2025-01-13] MEDS: guaiFENesin 12 HR 600 MG TABCR PO (10:11)
[2025-01-13] MEDS: INSULIN ASPART (*BKC) 100 UNITS/ML SUB-Q ×4 (10:11→12:34)
[2025-01-13] MEDS: ALPRAZolam (*CRX) 0.5 MG TABLET 1 MG PO (10:11)
[2025-01-13] MEDS: EUCERIN CREAM 120 GM JAR 1 APPLIC TOPICAL (10:14)
[2025-01-13] MEDS: FLUTICASONE PROPIONATE 0.05% NA SPR 16 GM BTL (*BKC) 1 SPRAY NASAL (10:14)
[2025-01-13 12:06] LABS: Glucose Point of Care 202 mg/dl (65-105)
[2025-01-13 14:00] VITALS: BP 155/72; PULSE 76; RESP 14; TEMP 36.5; O2SAT 99
== END 2025-01-13 16:37 | DRG 690 ==
LOC: ANHED 16:14 → ANH3MEDSUR 17:53
PROVIDERS: Internal Medicine; Nurse Practitioner Acute Care; Admitting Provider Internal Medicine; Emergency Provider Emergency Medicine; PCP Family Medicine; Visit Provider General Practice
DX: N30.00 Acute cystitis without hematuria (principal); R44.3 Hallucinations, unspecified; K57.92 Diverticulitis of intestine, part unspecified, without perforation or abscess without bleeding; J96.11 Chronic respiratory failure with hypoxia; I13.0 Hypertensive heart and chronic kidney disease with heart failure and stage 1 through stage 4 chronic kidney disease, or unspecified chronic kidney disease; I50.32 Chronic diastolic (congestive) heart failure; N17.9 Acute kidney failure, unspecified; W19.XXXA Unspecified fall, initial encounter; B96.20 Unspecified Escherichia coli [E. coli] as the cause of diseases classified elsewhere; D64.9 Anemia, unspecified; E11.65 Type 2 diabetes mellitus with hyperglycemia; E11.649 Type 2 diabetes mellitus with hypoglycemia without coma; E11.22 Type 2 diabetes mellitus with diabetic chronic kidney disease; E78.5 Hyperlipidemia, unspecified; F41.9 Anxiety disorder, unspecified; F32.A Depression, unspecified; F03.A0 Unspecified dementia, mild, without behavioral disturbance, psychotic disturbance, mood disturbance, and anxiety; I25.10 Atherosclerotic heart disease of native coronary artery without angina pectoris; I25.2 Old myocardial infarction; J44.9 Chronic obstructive pulmonary disease, unspecified; K86.89 Other specified diseases of pancreas; K21.9 Gastro-esophageal reflux disease without esophagitis; N18.30 Chronic kidney disease, stage 3 unspecified; N83.8 Other noninflammatory disorders of ovary, fallopian tube and broad ligament; Z95.5 Presence of coronary angioplasty implant and graft; Z90.49 Acquired absence of other specified parts of digestive tract; Z99.81 Dependence on supplemental oxygen; Z79.4 Long term (current) use of insulin; Z79.84 Long term (current) use of oral hypoglycemic drugs; Z79.82 Long term (current) use of aspirin; Z86.73 Personal history of transient ischemic attack (TIA), and cerebral infarction without residual deficits
CPT/HCPCS: 36415; 70450; 71045; 72125; 72128; 72131; 72197; 73030; 73060; 73090; 73200; 73521; 74177; 74183; 76376; 76856; 80048; 80053; 81001; 82140; 82570; 82948; 83605; 84156; 84300; 85025; 85027; 85610; 85730; 87086; 87186; 93005; 94640; 96365; 96375; 97110; 97116; 97161; 97165; 97530; 97535; 99285; A9270; A9577; G0378; J0696; J1815; J7030; Q9967

== ENCOUNTER 2025-05-24 08:07 | Emergency (ER) | payer MEDICARE, MEDICAID, SELFPAY ==
--- NOTE | ~2025-05-24 | CT_ITS ---
EXAMINATION: CT pelvis wo con DATE: 05/24/2025 09:39 INDICATION: Right hip pain post fall TECHNIQUE: High resolution computed tomography (CT) of the pelvis was performed without intravenous contrast. Additional sagittal and coronal reconstructions were performed. Automated exposure control and iterative reconstruction technique were employed. The dose-length product was 686.74 mGy-cm. COMPARISON: None FINDINGS: Mild lower lumbar levocurvature with severe right-sided disc height loss with Modic type III sclerotic endplate changes at L4-L5 and severe disc height loss with fusion across the peripheral margin of the L5-S1 disc space. There is moderate lower lumbar facet osteoarthritis and mild bilateral sacroiliac osteoarthritis. No acute fractures or traumatic malalignment. Mild osteitis pubis. Mild bilateral hip osteoarthritis with no joint effusions. Surrounding soft tissues are unremarkable. Moderate diverticulosis along the sigmoid and visualized descending colon without with inflammatory stranding at the distal descending colon consistent with diverticulitis. No abscess or free intraperitoneal gas or fluid in the pelvis or visualized lower abdomen. The uterus is not identified and has likely been surgically resected. Bladder is unremarkable. IMPRESSION: 1. No acute osseous abnormality. 2. Radiographically uncomplicated diverticulitis at the distal descending colon. Reviewed, dictated and finalized at location A. IMPRESSION: 1. No acute osseous abnormality. 2. Radiographically uncomplicated diverticulitis at the distal descending colon .
--- NOTE | ~2025-05-24 | XR_ITS ---
EXAMINATION: XR hip RT 2V w AP pelvis DATE: 05/24/2025 08:50 INDICATION: Right hip pain post fall TECHNIQUE: Anteroposterior view of the pelvis and anteroposterior and frog-leg lateral views of the right hip were obtained. COMPARISON: 01/13/2025 FINDINGS: Bone alignment is normal. No fracture or suspected osteonecrosis. Mild osteoarthritis at the bilateral sacroiliac joints. Atherosclerotic calcification projecting over the left femoral head. Severe lower lumbar spondylosis. Several phleboliths in the pelvis. IMPRESSION: 1. No acute osseous abnormality. Reviewed, dictated and finalized at location A.
--- NOTE | ~2025-05-24 | CT_ITS ---
EXAMINATION: CT cervical spine wo con COMPARISON: None HISTORY: fall, hi TECHNIQUE: Axial images were obtained through the spine without IV contrast. Coronal, sagittal reconstruction images were obtained from the axial views. CT scan performed using dose optimization techniques including the following automated exposure control; adjustment of mA and/or kV; use of iterative reconstruction technique. Automatic exposure control was used to reduce radiation dose. Permanent radiation dose record is archived to PACS. FINDINGS: The vertebral heights are intact. No fracture or subluxation. Severe loss of disc height at C6-7 with moderate to severe canal and foraminal stenosis, outpatient MRI recommended Soft tissues unremarkable. Impression: No acute abnormality. Reviewed, dictated and finalized at location P. Impression: No acute abnormality.
--- NOTE | ~2025-05-24 | XR_ITS ---
EXAMINATION: XR shoulder RT min 2V DATE: 05/24/2025 09:44 INDICATION: Right shoulder pain post fall off bed TECHNIQUE: AP internally and externally rotated, AP oblique externally rotated and transscapular Y views of the right shoulder were obtained. COMPARISON: 01/10/2025 FINDINGS: Normal alignment. No acute fracture. Again seen is a chronic lower thoracic compression fractures with change of prior vertebroplasty. Mild right glenohumeral and acromioclavicular osteoarthritis. Visualized portion of the right lung are clear. Soft tissues are unremarkable. IMPRESSION: Mild right glenohumeral and acromioclavicular osteoarthritis. No acute osseous abnormality. Reviewed, dictated and finalized at location A.
--- NOTE | ~2025-05-24 | CT_ITS ---
EXAMINATION: CT brain wo carlo, 05/24/2025 9:30 CDT HISTORY: fall, hi COMPARISON: No comparisons available. Technique: Axial images obtained of the brain without contrast. One or more of the following dose reduction techniques were used: automated exposure control, adjustment of the mA and/or kV according to patient size, use of iterative reconstruction technique. Findings: Artifact limits evaluation, there are remote appearing bilateral basal ganglia lacunar infarcts. No acute infarct or hemorrhage. No midline shift or mass effect. No extra-axial fluid collections Mastoid air cells unremarkable. Sinuses and orbits unremarkable. No acute fracture. No significant facial or scalp soft tissue swelling evident. No radiopaque foreign body is seen. Impression: 1. No acute infarct or hemorrhage Reviewed, dictated and finalized at location P. Impression: 1. No acute infarct or hemorrhage
[2025-05-24 08:03] VITALS: BP 109/94; PULSE 59; RESP 20; TEMP 36.4; O2SAT 93
--- NOTE | 2025-05-24 09:42 | ED_ITS ---
HPI - Fall General Chief Complaint: Fall Stated Complaint: fall Time Seen by Provider: 05/24/25 09:04 Source: patient and RN notes reviewed Mode of arrival: EMS Limitations: no limitations History of Present Illness HPI Narrative: Patient is a 79-year-old female who presents the ED via EMS with report of a fall. Patient is resident of [facility]. Patient reports the slats fell through on her bed and she fell to the ground. She does believe she hit her head. Denies LOC. States she landed on her right side. Complains of pain to her right shoulder, right-sided neck, right-sided hip. Denies numbness. She is not on any anticoagulation. retirement staff did report that her blood sugar was low around 50 this morning. She was given something to eat and drink prior to EMS arrival. Related Data Home Medications ?Medication ?Instructions ?Recorded ?Confirmed ?Last Taken ?Type acetaminophen 325 mg capsule 650 mg PO Q6H PRN Pain (S memo 10/14/19 04/13/25 09/27/21 History Score 1-3) glucose 4 gram chewable tablet 4 gm PO Q15M PRN Hypogl ycemia 10/14/19 04/13/25 09/27/21 History (Dex4 Glucose) vitamin B complex (B 1 tablet PO DAILY 10/14/19 0 04/13/25 09/25/21 History Complex-Vitamin B12 tablet) polyethylene glycol 3350 17 17 gm PO BID PRN Constipat ion 09/18/21 04/13/25 09/27/21 History gram/dose oral powder (Miralax) alprazolam 0.5 mg tablet 1 mg PO BID 07/02/24 5 01/05/25 History tramadol 50 mg tablet 50 mg PO Q6H PRN Pain (Scale Score 07/02/24 04/13/25 Unknown History 4-6) donepezil 5 mg tablet 5 mg PO DAILY 01/28/2504/13 Unknown History gabapentin 100 mg capsule 100 mg PO QHS 01/28/2504/13 Unknown History glipizide 10 mg tablet mg PO 01/28/25 04/13/25 Unkn own History hydralazine 25 mg tablet 25 mg PO TID 01/28/25 Unknown History nitroglycerin 0.4 mg sublingual 0.4 mg sublingual Q5M PRN 01/28/25 04/13/25 Unknown History tablet (Nitrostat) Allergies Allergy/AdvReac Type Severity Reaction Status Date / Time meperidine AdvReac Mild Diarrhea Verified 04/13/25 08:32 Review of Systems 2 Review of Systems: All systems reviewed & are unremarkable except as noted in HPI. All systems reviewed & are unremarkable except as noted in HPI and below [facility] Past Medical History Medical History UTI (urinary tract infection) Recurrent UTI SHAWN (acute kidney injury) Patient new to provider Urinary tract infection Osteoarthritis of right knee Type 2 diabetes mellitus with hyperglycemia, with long-term current use of insulin History of diverticulitis Dementia Colon polyps Tenesmus (rectal) COPD exacerbation Asthma-COPD overlap syndrome Chronic respiratory failure with hypoxia, on home oxygen therapy Chronic kidney disease, stage 3 Insulin dependent type 2 diabetes mellitus Dyslipidemia Hypertension Gastroesophageal reflux disease Congestive heart failure With preserved ejection fraction, mildly dilated right ventricle with normal right ventricular function Cerebrovascular accident Coronary artery disease Anemia Anxiety Depression Arthritis Colitis Hiatal hernia Gastric ulcer Asthma Myocardial infarction Surgical History Surgical History History of sinus surgery History of bladder suspension procedure History of tubal ligation History of hysterectomy History of coronary artery stent placement History of dilation and curettage History of cardiac catheterization History of colonoscopy with polypectomy History of appendectomy Family History Family History Mother Family history of diabetes mellitus in first degree relative Family history of primary malignant neoplasm of liver Family history of heart disease in male family member before age 55 Family history of hearing loss Family history of liver disease Diabetes mellitus Cerebrovascular accident Family history of pancreatic cancer Hypertension Father Family history of emphysema Sibling Diabetes mellitus Other Depression Family history of alcoholism Family history of allergic disorder Family history of arthritis Family history of cardiovascular disease Family history of coronary artery disease Family history of malignant neoplasm Family history of mental disorder Family history of osteoporosis Social History Social History Social History: Healthcare power of employment attorney: Alistair Martínez. Code status: Full code. Smoking status: Never smoker Second hand tobacco smoke exposure: Yes Alcohol intake: never Alcohol use details: History of alcohol abuse, none since 2014. Substance use: never Substance use type: does not use Do You Feel Safe in your Home?: Yes Lack of Transportation: No Lack of Food: Never True Current Housing: I Have Housing Concerned About Future Housing: No Difficulty Paying Gas/Electric Bills: No Difficulty Paying for Meds: No Currently Unemployed: No Education: High School Diploma/GED Difficulty w/ Childcare or Family Care: No Living arrangements: assisted living Additional living arrangements comments: Assisted living at [facility]. Occupation/Education: retired Gender identity (if verbalized by the patient): Female Spiritual care concerns: No Exam 2 Narrative: GENERAL: Elderly, obese with BMI of 33.3, non-toxic, in no acute distress. HEAD: Normocephalic, atraumatic. NECK: No significant midline spinal tenderness. Mild tenderness throughout right paraspinal musculature. RESPIRATORY: Airway patent, respirations nonlabored. Clear to auscultation bilaterally, no rales, rhonchi, wheezing. CARDIOVASCULAR: Regular rate and rhythm without murmurs, rubs, or gallops. Peripheral pulses intact MUSCULOSKELETAL: Moves all extremities. No gross deformities. Mild tenderness throughout right lateral hip joint, right anterior shoulder. No appreciable swelling or bruising. Sensation intact throughout extremities. SKIN: Warm, dry, normal color. NEURO: A&O X3. Speech clear. Cranial nerves II-XII grossly intact. No ataxic movements. PSYCHIATRIC: Appropriate mood and affect. Normal interaction. Course Vital Signs Vital signs: Vital Signs Temperature 97.6 F 05/24/25 08:03 Pulse Rate 59 L 05/24/25 08:03 Respiratory Rate 20 05/24/25 08:03 Blood Pressure 109/94 H 05/24/25 08:03 Pulse Oximetry 93 05/24/25 08:03 Oxygen Delivery Room Air 05/24/25 08:03 Temperature 97.6 F 05/24/25 08:03 Pulse Rate 64 05/24/25 10:53 Respiratory Rate 20 05/24/25 10:53 Blood Pressure 162/71 H 05/24/25 10:53 Pulse Oximetry 98 05/24/25 10:53 Oxygen Delivery Room Air 05/24/25 08:03 MDM - Fall MDM Narrative Medical decision making narrative: Patient presented to ED with pain to right side status post fall through her bed. Vital signs stable upon arrival. Patient in no acute distress. Neurologically intact upon my evaluation. A&O x4. Initial x-ray of right hip with negative. CT pelvis was obtained and w/o acute fx. CT brain negative. CT cervical spine negative. XR R shoulder negative. CT pelvis did show evidence of uncomplicated diverticulitis. Patient does report having diarrhea with intermittent bright red blood in stool for the past 7 months. Denies previous hx of diverticulitis that she is aware of. States she has had colonoscopies in the past, unsure when the last was. Laboratory studies were obtained. No leukocytosis or anemia. Stable electrolytes. Creatinine stable at 1.38. Consistent with previous records. Per group home report, patient was noted to be hypoglycemic this morning. Blood sugar here 61, given additional meal with improvement. Blood sugar on CMP 125. Patient is safe for discharge back to assisted living facility on antibiotics for diverticulitis. Started on Augmentin in the ED. Discussed diverticulitis, additional pain control for oral likely a musculoskeletal etiology, muscular strain. Discussed return precautions. D/C in stable condition. Medical Records Attestation: I reviewed the patient's medical records. Lab Data Attestation: I reviewed the patient's lab results. 05/24/25 11:40 05/24/25 11:40 Labs: Lab Results 05/24/25 05/24/25 05/24/25 Range/Units 10:19 11:39 11:40 WBC 8.6 (4.5-10.0) K/mm3 RBC 4.27 (4.2-5.4) M/mm3 Hgb 12.5 (12.0-15.0) g/dL Hct 38.1 (37.0-47.0) % MCV 89.2 (80-100) fl MCH 29.3 (26-34) pg MCHC 32.8 (32-36) g/dl RDW 15.4 H (11.5-14.5) % Plt Count 221 (150-375) k/mm3 MPV 10.8 H (7.4-10.4) fl Immature Gran % (Auto) 0.6 H (0-0.5) % Neut % (Auto) 64.3 (45.5-73.1) % Lymph % (Auto) 23.1 (18.3-44.2) % Upton % (Auto) 8.1 (2.6-8.5) % Eos % (Auto) 3.5 (0-4.4) % Baso % (Auto) 0.4 (0.2-1.2) % Lymph # (Auto) 1.98 (0.9-3.2) K/mm3 Upton # (Auto) 0.7 H (0.1-0.6) K/mm3 Eos # (Auto) 0.3 (0-0.3) K/mm3 Baso # (Auto) 0.0 (0.0-0.1) K/mm3 Abs Immat Gran (auto) 0.05 H (0.00-0.031) K/mm3 Absolute Neuts (auto) 5.5 (1.3-6.7) K/mm3 Absolute Nucleated RBC 0.000 (0.0-0.012) K/mm3 Nucleated RBC % 0.0 (0.0-0.2) % PT 14.2 (11.1-14.7) Seconds INR 1.1 APTT 32.5 (22.3-36.8) Seconds Sodium 137 (137-145) mmol/L Potassium 3.7 (3.4-5.0) mmol/L Chloride 99 (98-107) mmol/L Carbon Dioxide 31 H (22-30) mmol/L Anion Gap 7 (4-12) mmol/L BUN 33 H D (7-17) mg/dL Creatinine 1.38 H (0.7-1.0) mg/dL Estim Creat Clear Calc 31 ml/min Estimated GFR 37 L (59 - ) Glucose 125 H (65-110) mg/dL POC Capillary Glucose 61 L (65-105) mg/dl Calcium 9.5 (8.4-10.2) mg/dL Total Bilirubin 0.3 (0.2-1.3) mg/dL AST 23 (14-36) U/L ALT 19 (6-35) U/L Alkaline Phosphatase 107 (38-126) U/L Total Protein 6.7 (6.3-8.2) g/dL Albumin 3.8 (3.5-5.1) g/dL Imaging Data Attestation: I personally reviewed and interpreted this imaging study as follows: Radiologist's impression: ITS Impressions Hip/Pelvis X-Ray 05/24/25 09:03 IMPRESSION: 1. No acute osseous abnormality. Head CT 05/24/25 09:38 Impression: 1. No acute infarct or hemorrhage Pelvis CT 05/24/25 09:42 IMPRESSION: 1. No acute osseous abnormality. 2. Radiographically uncomplicated diverticulitis at the distal descending colon. Cervical Spine CT 05/24/25 09:45 Impression: No acute abnormality. Shoulder X-Ray 05/24/25 09:48 IMPRESSION: Mild right glenohumeral and acromioclavicular osteoarthritis. No acute osseous abnormality. Discharge Plan Discharge Clinical Impression: Diverticulitis of descending colon Accidental fall from bed Qualifiers: Encounter type: initial encounter Qualified Code(s): W06.XXXA - Fall from bed, initial encounter Strain of right hip Qualifiers: Encounter type: initial encounter Qualified Code(s): S76.011A - Strain of muscle, fascia and tendon of right hip, initial encounter Patient Disposition: [facility] Skilled Nursing/Asst Living Condition: Stable Instructions: Antibiotic Form, Diverticulitis (ED), Hip Sprain (ED), Diverticulitis Diet (ED) Additional Instructions: Patient's imaging did not show any areas of fracture. Recommend ice to areas of pain, Tylenol as needed for pain. Patient was diagnosed with diverticulitis today. Take antibiotics as prescribed. Recommend clear liquid/bland diet until diarrhea improves. Recommend follow-up with PCP and/or GI for further evaluation of this. Return to the ED if patient experiences recurrent fall or injury, severe pain, severe abdominal pain, profuse diarrhea, unable to keep down food or drink, severe rectal bleeding, persistent fevers, or any other symptoms of concern. Patient Language: Swedish Prescriptions: No Action acetaminophen 325 mg capsule 650 mg PO Q6H PRN (Reason: Pain (Scale Score 1-3)) glucose [Dex4 Glucose] 4 gram tablet,chewable 4 gm PO Q15M PRN (Reason: Hypoglycemia) Rx Instructions: until symptoms of low blood sugar are controlled vitamin B complex [B Complex-Vitamin B12] Tablet 1 tablet PO DAILY donepezil 5 mg tablet 5 mg PO DAILY glipizide 10 mg tablet PO hydralazine 25 mg tablet 25 mg PO TID nitroglycerin [Nitrostat] 0.4 mg tablet, sublingual 0.4 mg sublingual Q5M PRN Rx Instructions: do not exceed 3 doses per episode diclofenac sodium [Arthritis Pain (diclofenac)] 1 % gel 2 g topical QID Qty: 100 0RF Rx Instructions: apply to single elbow, wrist or hand; for hand includes palm/fingers/back of hand gabapentin 100 mg capsule 100 mg PO QHS triamcinolone acetonide 10 mg/mL suspension 20 mg intra-articular ONCE Qty: 2 0RF lidocaine (PF) 10 mg/mL (1 %) solution 40 mg intra-articular ONCE Qty: 4 0RF Artificial Tears(ua-fzyr-kses) 1-0.2-0.2 % Drops 1 drp EACH EYE QID PRN (Reason: Dry Eye(S)) Qty: 15 0RF fluticasone propionate 50 mcg/actuation [place],Suspension 1 spray intranasal Q12HR Qty: 16 0RF insulin aspart U-100 [Novolog U-100 Insulin aspart] 100 unit/mL Solution 4 - 8 unit subcut TIDWM Qty: 10 0RF Protocol: Insulin Corrective High-Dose Condition: glucose < 70 mg/dl Dose/Route: Follow hypoglycemia order Condition: glucose 70-200 mg/dl Dose/Route: No additional insulin Condition: glucose 201-250 mg/dl Dose/Route: 4 units sub-Q Condition: glucose 251-300 mg/dl Dose/Route: 5 units sub-Q Condition: glucose 301-350 mg/dl Dose/Route: 6 units sub-Q Condition: glucose 351-400 mg/dl Dose/Route: 8 units sub-Q Condition: glucose > 400 mg/dl Dose/Route: Call Protocol Text: *No Correction Dose at Bedtime* Rx Instructions: glucose < 70 mg/dl Follow hypoglycemia order; glucose 70-200 mg/dl No additional insulin; glucose 201-250 mg/dl 4 units sub-Q; glucose 251-300 mg/dl 5 units sub-Q; glucose 301-350 mg/dl 6 units sub-Q glucose 351-400 mg/dl 8 units sub-Q; glucose > 400 mg/dl Call MD Juan Burr 100-62.5-25 mcg blister with device 1 inh inhalation DAILY Qty: 60 0RF polyethylene glycol 3350 [Miralax] 17 gram/dose powder 17 gm PO BID PRN (Reason: Constipation) alprazolam 0.5 mg tablet 1 mg PO BID tramadol 50 mg tablet 50 mg PO Q6H PRN (Reason: Pain (Scale Score 4-6)) ondansetron 4 mg tablet,disintegrating 4 mg PO Q8H PRN (Reason: nausea and vomiting) Qty: 14 0RF calcium carbonate 500 mg calcium (1,250 mg) Tablet,Chewable 200 mg PO Q6H PRN (Reason: Indigestion) Qty: 10 0RF methenamine hippurate 1 gram tablet 1 g PO BID Qty: 30 0RF cholecalciferol (vitamin D3) 1,250 mcg (50,000 unit) capsule 1,250 mcg PO WEEKLY Qty: 8 0RF insulin glargine [Lantus U-100 Insulin] 100 unit/mL solution 60 unit subcut HS Qty: 30 0RF ferrous sulfate 325 mg (65 mg iron) tablet 325 mg PO DAILY Qty: 30 0RF paroxetine HCl 40 mg tablet 40 mg PO DAILY Qty: 30 0RF paroxetine HCl 20 mg tablet 20 mg PO DAILY Qty: 90 0RF pantoprazole 40 mg tablet,delayed release (DR/EC) 40 mg PO DAILY Qty: 30 6RF montelukast 10 mg tablet 10 mg PO HS Qty: 30 0RF furosemide 20 mg tablet 20 mg PO QAM Qty: 30 6RF carvedilol [Coreg] 25 mg tablet 25 mg PO BID Qty: 60 4RF Rx Instructions: must administer with a meal/food aspirin [Adult Low Dose Aspirin] 81 mg tablet,delayed release (DR/EC) 81 mg PO DAILY Qty: 30 1RF Januvia 100 mg tablet 100 mg PO QAM Qty: 30 6RF atorvastatin 20 mg tablet 20 mg PO HS Qty: 30 6RF buspirone 10 mg tablet See Rx Instructions .ROUTE .COMPLEX Qty: 180 0RF Dose Instruction: TAKE 2 TABLETS BY MOUTH THREE TIMES DAILY Rx Instructions: TAKE 2 TABLETS BY MOUTH THREE TIMES DAILY multivitamin with folic acid [Tab-A-Urbano] 400 mcg tablet See Rx Instructions .ROUTE .COMPLEX Qty: 30 3RF Dose Instruction: TAKE 1 TABLET BY MOUTH ONCE DAILY Rx Instructions: TAKE 1 TABLET BY MOUTH ONCE DAILY methocarbamol 750 mg tablet See Rx Instructions .ROUTE .COMPLEX Qty: 60 0RF Dose Instruction: TAKE 1 TABLET BY MOUTH THREE TIMES DAILY NEEDED FOR MUSCLE SPASM Rx Instructions: TAKE 1 TABLET BY MOUTH THREE TIMES DAILY NEEDED FOR MUSCLE SPASM Follow-up/Referrals: Kunal Myers MD [Physician, Gastroenterology] Referral Note: Bryce Winston MD [Primary Care Provider, Family Practice] Time of Disposition: 12:24
[2025-05-24] MEDS: ACETAMINOPHEN 500 MG TABLET 1000 MG PO (10:18)
[2025-05-24 10:53] VITALS: BP 162/71; PULSE 64; RESP 20; O2SAT 98
[2025-05-24 11:47] LABS: Hematocrit 38.1 % (37.0-47.0); Hemoglobin 12.5 g/dL (12.0-15.0); Immature Granulocyte Percent A 0.6 % (0-0.5); Lymphocytes Absolute Auto 1.98 K/mm3 (0.9-3.2); Mean Corpuscular HGB Conc 32.8 g/dl (32-36); Mean Corpuscular Hemoglobin 29.3 pg (26-34); Mean Corpuscular Volume 89.2 fl (80-100); Nucleated Red Blood Cells Absolute Auto 0.000 K/mm3 (0.0-0.012); Nucleated Red Blood Cells Perc 0.0 % (0.0-0.2); Platelet Count Result 221 k/mm3 (150-375); Red Blood Count 4.27 M/mm3 (4.2-5.4); White Blood Count 8.6 K/mm3 (4.5-10.0)
[2025-05-24 12:07] LABS: Alanine Aminotransferase 19 U/L (6-35); Albumin Level 3.8 g/dL (3.5-5.1); Alkaline Phosphatase 107 U/L (38-126); Anion Gap 7 mmol/L (4-12); Aspartate Amino Transferase 23 U/L (14-36); Bilirubin,Total 0.3 mg/dL (0.2-1.3); Blood Urea Nitrogen 33 mg/dL (7-17); Calcium 9.5 mg/dL (8.4-10.2); Carbon Dioxide 31 mmol/L (22-30); Chloride 99 mmol/L (98-107); Estimated CRCL calculation 31 ml/min; Estimated Glomerular Filt Rate 37; Glucose 125 mg/dL (65-110); Potassium 3.7 mmol/L (3.4-5.0); Sodium 137 mmol/L (137-145); Total Protein 6.7 g/dL (6.3-8.2)
[2025-05-24 12:12] LABS: INR 1.1; Prothrombin Time 14.2 Seconds (11.1-14.7)
[2025-05-24 12:13] LABS: Partial Thromboplastin Time 32.5 Seconds (22.3-36.8)
[2025-05-24 14:02] VITALS: BP 140/77; PULSE 66; RESP 20; O2SAT 100
== END 2025-05-24 14:03 ==
PROVIDERS: Emergency Provider Physician Assistant; PCP Family Medicine
DX: S76.011A Strain of muscle, fascia and tendon of right hip, initial encounter (principal); W06.XXXA Fall from bed, initial encounter; I13.0 Hypertensive heart and chronic kidney disease with heart failure and stage 1 through stage 4 chronic kidney disease, or unspecified chronic kidney disease; I11.0 Hypertensive heart disease with heart failure; E11.22 Type 2 diabetes mellitus with diabetic chronic kidney disease; N18.30 Chronic kidney disease, stage 3 unspecified
CPT/HCPCS: 36415; 70450; 72125; 72192; 73030; 73502; 80053; 82948; 85025; 85610; 85730; 99284; A9270

== ENCOUNTER 2025-06-15 08:48 | Emergency (ER) | payer MEDICARE, MEDICAID, SELFPAY ==
--- NOTE | ~2025-06-15 | CT_ITS ---
EXAMINATION: CT lumbar spine wo con DATE: 06/15/2025 10:58 DRIER AND PULVERIZER TENDER INDICATION: Fall. Now with low back pain. TECHNIQUE: Computed tomography (CT) of the lumbar spine was performed without intravenous contrast. The dose-length product was 1063.77 mGy-cm. COMPARISON: CT abdomen pelvis 01/05/2025 FINDINGS: Moderate sized compression fracture of L2 vertebral body status post kyphoplasty. No new compression fracture in the lumbar spine. Stable degenerative change throughout the lumbar spine as compared to the CT abdomen and pelvis study from 01/05/2025. Grossly stable lucencies in the L4 vertebral body. Grade 1 anterolisthesis of L4 on L5. Moderate-sized hiatal hernia. At the L2-3 level, there is a small to moderate-sized broad-based disc bulge causing mild narrowing of the spinal canal and mild narrowing of the bilateral neural foramen. At the L3-4 level, there is a small to moderate-sized broad-based disc bulge causing mild to moderate narrowing the spinal canal and mild to moderate narrowing of the bilateral neural foramen. At the L4-5 level, there is a moderate-sized broad-based disc bulge with hypertrophy ligamentum flavum and degenerative change in the facet joints causing moderate narrowing of the spinal canal. Moderate narrowing of the left neural foramen and severe narrowing of the right neural foramen. At the L5-S1 level, there is a moderate-sized posterior disc osteophyte complex with degenerative change in the facet joints causing mild narrowing of the spinal canal. Mild narrowing of the bilateral neural foramen. IMPRESSION: 1. No new compression fracture in the lumbar spine. 2. Moderate sized compression fracture of L2 vertebral body status post kyphoplasty. 3. Stable degenerative change throughout the lumbar spine as compared to the CT abdomen and pelvis study from 01/05/2025. 4. Grossly stable indeterminate lucencies in the L4 vertebral body. An MRI of the lumbar spine is recommended. 5. Multilevel discogenic and degenerative change in the lumbar spine as detailed above. If symptoms persist or worsen, consider a short-term follow-up study or additional imaging for further assessment. Reviewed, dictated and finalized at location Q. R AND PULVERIZER TENDER IMPRESSION: 1. No new compression fracture in the lumbar spine. 2. Moderate sized compression fracture of L2 vertebral body status post kyphopl asty. 3. Stable degenerative change throughout the lumbar spine as compared to the CT abdomen and pelvis study from 01/05/2025. 4. Grossly stable indeterminate lucencies in the L4 vertebral body. An MRI of t he lumbar spine is recommended. 5. Multilevel discogenic and degenerative change in the lumbar spine as detaile d above. If symptoms persist or worsen, consider a short-term follow-up study or additio nal imaging for further assessment.
--- NOTE | ~2025-06-15 | CT_ITS ---
CT CERVICAL SPINE WITHOUT CONTRAST CLINICAL HISTORY: unwitnessed fall Technique: Axial images thoracic inlet to skull base Sagittal and coronal reformats. No contrast CT images acquired with automatic exposure control for dose reduction DLP: 337 mGy-cm Comparison: 05/24/2025 Findings: No acute fracture or listhesis. Vertebral bodies normal height and alignment. Mild degenerative changes. Disc disease C6-7. Prevertebral soft tissues within normal limits. Visualized lung apices: Clear. Visualized thyroid: Unremarkable. No enlarged cervical nodes. IMPRESSION: 1. No acute findings. Reviewed, dictated and finalized at location R. ER ASSEMBLER IMPRESSION: 1. No acute findings.
--- NOTE | ~2025-06-15 | XR_ITS ---
EXAMINATION: XR pelvis 1-2V, 06/15/2025 9:25 SOURCING CONSULTANT HISTORY: fall, R Hip pain COMPARISON: No comparisons available. Findings: No acute fracture or malalignment. No significant degenerative changes. Soft tissues unremarkable. Impression: No acute fracture or malalignment. Reviewed, dictated and finalized at location P. CING CONSULTANT Impression: No acute fracture or malalignment.
--- NOTE | ~2025-06-15 | CT_ITS ---
EXAMINATION: CT brain wo con DATE: 06/15/2025 09:28 INDICATION: Unwitnessed fall TECHNIQUE: Computed tomography (CT) of the head was performed without intravenous contrast. Sagittal and coronal reconstructions were performed. The mA was adjusted according to patient size. Iterative reconstruction technique was employed. The dose-length product was 681.00 mGy-cm. COMPARISON: head CT dated 05/24/2025 FINDINGS: No acute fracture. Old healed nasal bone fractures of the nasal bones deviated towards the left. There is also chronic rightward deviation of the nasal septum which parallels the contours of the turbinates is more likely developmental than posttraumatic. No acute intracranial hemorrhage, acute infarction or abnormal extra axial fluid collection. Unchanged small old lacunar infarcts at the bilateral basal ganglia and in the white matter of the left frontal lobe centrum semiovale. There is mild to moderate scattered white matter hypoattenuation consistent with chronic small vessel ischemic disease. Symmetric prominence of the sulci and ventricles consistent with moderate age-appropriate diffuse cereb ral volume loss. No mass/mass effect. Mild mucosal thickening in the left maxillary sinus. Changes of bilateral intraocular lens replacement. The orbits and mastoid air cells are normal. IMPRESSION: 1. No fracture or acute intracranial process. 2. Unchanged small old lacunar infarcts at the bilateral basal ganglia and in the right frontal lobe centrum semiovale. 2. Age-related changes including moderate diffuse volume loss and mild to moderate scattered white matter hypoattenuation consistent with chronic small vessel ischemic disease. Reviewed, dictated and finalized at location A. SEAMER BLINDSTITCH IMPRESSION: 1. No fracture or acute intracranial process. 2. Unchanged small old lacunar infarcts at the bilateral basal ganglia and in t he right frontal lobe centrum semiovale. 2. Age-related changes including moderate diffuse volume loss and mild to moder ate scattered white matter hypoattenuation consistent with chronic small vessel ischemic disease.
[2025-06-15 08:45] VITALS: BP 150/87; PULSE 85; RESP 20; TEMP 36.6; O2SAT 96
--- NOTE | 2025-06-15 08:49 | ECG_ITS ---
Test Date: 2025-06-15 09:01:07 Measurements Intervals [place] Rate: 83 P: 29 NH: 178 QRS: -5 QRSD: 84 T: 9 QT: 381 QTc: 449 Interpretive Statements SINUS RHYTHM NONSPECIFIC T-WAVE ABNORMALITY Compared to ECG 01/05/2025 13:06:34 No significant changes Electronically Signed On 06-15-2025 21:25:00 WINDOW CLEANER by Gladis Rand M.D.
[2025-06-15 09:14] VITALS: BP 155/85; PULSE 80; RESP 20; O2SAT 95
[2025-06-15 09:25] LABS: Hematocrit 44.3 % (37.0-47.0); Hemoglobin 14.5 g/dL (12.0-15.0); Immature Granulocyte Percent A 0.4 % (0-0.5); Lymphocytes Absolute Auto 1.85 K/mm3 (0.9-3.2); Mean Corpuscular HGB Conc 32.7 g/dl (32-36); Mean Corpuscular Hemoglobin 29.8 pg (26-34); Mean Corpuscular Volume 91.0 fl (80-100); Nucleated Red Blood Cells Absolute Auto 0.000 K/mm3 (0.0-0.012); Nucleated Red Blood Cells Perc 0.0 % (0.0-0.2); Platelet Count Result 232 k/mm3 (150-375); Red Blood Count 4.87 M/mm3 (4.2-5.4); White Blood Count 9.4 K/mm3 (4.5-10.0)
[2025-06-15 09:55] LABS: Alanine Aminotransferase 35 U/L (6-35); Albumin Level 4.1 g/dL (3.5-5.1); Alkaline Phosphatase 102 U/L (38-126); Anion Gap 10 mmol/L (4-12); Aspartate Amino Transferase 43 U/L (14-36); Bilirubin,Total 0.5 mg/dL (0.2-1.3); Blood Urea Nitrogen 25 mg/dL (7-17); Calcium 9.6 mg/dL (8.4-10.2); Carbon Dioxide 26 mmol/L (22-30); Chloride 99 mmol/L (98-107); Creatine Kinase 207 U/L (30-135); Estimated Glomerular Filt Rate 44; Glucose 246 mg/dL (65-110); Potassium 4.0 mmol/L (3.4-5.0); Sodium 135 mmol/L (137-145); Total Protein 7.1 g/dL (6.3-8.2)
[2025-06-15 10:22] VITALS: BP 163/82; PULSE 78; RESP 20; O2SAT 96
[2025-06-15 10:31] LABS: Add Urine Microscopic? YES; Appearance Urine Clear (Clear); Glucose Urine UA Negative (Negative); Leukocyte Esterase Ur 1+ LEU/UL (Negative); Nitrate Urine Negative (Negative); Specific Grav Ur 1.016 (1.001-1.035)
--- OUTSIDE RECORDS SUMMARY | 2025-06-15 10:55 | XMS_ITS | Clinical Summary ---
Author Organization [facility] [employer] Address [address] [place] [address] Care Team Providers Care Veneer Repairer Machine Name Role Phone Jason Botello MD Primary Care Provider [phone] Source Comments [facility] [employer],non-owned Affiliates and Associated Physician Practices is amultiple site organization consisting of ambulatory clinics and hospital sitesin [place], [place], [place] and [place]. This disclosure is being madepursuant to the Care Everywhere program and may not contain all information available regarding this patient. Last updated 18.[employer] Allergies No known active allergies Medications * [...] yrs (1 - 1-dose 75+ series) 2021 DEPRESSION SCREENING 08/12/2024 COVID-19 VACCINE (1 - 2023-2 5 season) 2025 INFLUENZA VACCINE (#1) 2025 HEPATITIS B VACCINE Aged Out No [...] patient's age to complete this topic Insurance [facility] MEDICA[facility] - [place] [facility] MANAGED MEDICARE ADV SELF PAY NO INSURANCE Member Subscriber Plan / Payer (Ef fective for All Dates) Name:Connor Pike [place] Member ID:Not on file Relation to Subscriber:Not on file Name:CONNOR PIKE Subscriber ID:Not on file (Home) Address: [address] [place] [address] [id number] Payer ID:Not on file Group ID:Not on file Type:Self Pay Address: [place], [place] Advance Directives Documents on File Type Date Recorded Patient Rehab Aide Expl anation Adv Directive/Living Will/POA 03/14/2018 9:06 AM * Full Code (Latest Code Status on File) Date Activated Date Inactivated Comments 03/07/2018 6:12 PM 03/12/2018 12:24 PM Care Teams Veneer Repairer Machine Relationship Specialty Start Date End Date Jason Botello MD [address] [place] [id number] PCP - General 12/31/18
--- OUTSIDE RECORDS SUMMARY | 2025-06-15 10:55 | XMS_ITS | Clinical Summary ---
Author Organization [facility] Address [address] [place] [address] Phone Care Team Providers Care Welder 2Nd Shift Name Role Phone Karen Reyna JEFFERY Primary [...] hy 05/20/2018 Atherosclerotic heart diseas [place] of [place] coronary artery without angina pectoris 05/20/2018 Closed [...] on file Legal Sex Female 8:02 AM [facility] Gender Identity Not on file Sexual [...] / Low and Medium Risk (1 of 2 - PCV) 1996 Influenza Vaccine (#1) 2025 04/12/2020 Insurance [employer] MEDICARE ADVANTAGE MEDICARE ADVANTAGE Care Teams Welder 2Nd Shift Relationship Specialty Start Date End Date Karen Reyna FNP [address] [place] [address] PCP - General Family Medicine 07/04/21
[2025-06-15] MEDS: NITROFURANTOIN MONOHYD MACROCR 100 MG CAP PO (11:06)
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
--- NOTE | 2025-06-15 15:28 | PC.NURSE ---
Ruth Ann vallecillo ordered for pt.
== END 2025-06-15 16:54 ==
PROVIDERS: Emergency Provider Emergency Medicine; PCP Family Medicine
DX: S00.12XA Contusion of left eyelid and periocular area, initial encounter (principal); N39.0 Urinary tract infection, site not specified; F03.90 Unspecified dementia, unspecified severity, without behavioral disturbance, psychotic disturbance, mood disturbance, and anxiety; E11.22 Type 2 diabetes mellitus with diabetic chronic kidney disease; I13.0 Hypertensive heart and chronic kidney disease with heart failure and stage 1 through stage 4 chronic kidney disease, or unspecified chronic kidney disease; I50.9 Heart failure, unspecified; N18.30 Chronic kidney disease, stage 3 unspecified; J44.9 Chronic obstructive pulmonary disease, unspecified; J96.11 Chronic respiratory failure with hypoxia; Z99.81 Dependence on supplemental oxygen; I25.2 Old myocardial infarction; I25.10 Atherosclerotic heart disease of native coronary artery without angina pectoris; E78.5 Hyperlipidemia, unspecified; K21.9 Gastro-esophageal reflux disease without esophagitis; K44.9 Diaphragmatic hernia without obstruction or gangrene; M17.11 Unilateral primary osteoarthritis, right knee; F41.9 Anxiety disorder, unspecified; F32.A Depression, unspecified; Z95.5 Presence of coronary angioplasty implant and graft; Z86.73 Personal history of transient ischemic attack (TIA), and cerebral infarction without residual deficits; Z86.0100 Personal history of colon polyps, unspecified; Z90.710 Acquired absence of both cervix and uterus; Z79.84 Long term (current) use of oral hypoglycemic drugs; Z79.85 Long-term (current) use of injectable non-insulin antidiabetic drugs; Z79.82 Long term (current) use of aspirin; Z79.4 Long term (current) use of insulin; Z79.899 Other long term (current) drug therapy; W01.0XXA Fall on same level from slipping, tripping and stumbling without subsequent striking against object, initial encounter
CPT/HCPCS: 36415; 70450; 72125; 72131; 72170; 80053; 81001; 82550; 85025; 87086; 93005; 99284; A9270

== ENCOUNTER 2025-06-21 16:18 | Emergency (ER) | payer MEDICARE, MEDICAID, SELFPAY ==
--- NOTE | ~2025-06-21 | XR_ITS ---
[id number] INDICATION: pain COMPARISON: None FINDINGS: Two views of the right knee demonstrate no acute fracture or dislocation. Degenerative changes with joint space narrowing and subchondral sclerosis with marginal osteophytes. This is most significant in the lateral tibiofemoral compartment. IMPRESSION: No acute fracture or dislocation. Tricompartment osteoarthritis most significant in the lateral tibiofemoral compartment. Reviewed, dictated and finalized at location S. ACT MIXER IMPRESSION: No acute fracture or dislocation. Tricompartment osteoarthritis most significant in the lateral tibiofemoral comp artment.
--- NOTE | ~2025-06-21 | CT_ITS ---
CT brain wo con HISTORY:weakness COMPARISON: None. TECHNIQUE: Axial images were obtained of the head without intravenous contrast. FINDINGS: No acute intracranial hemorrhage, mass effect or midline shift. No extra-axial fluid collections. The calvarium is intact. Visualized paranasal sinuses and mastoid air cells are clear. IMPRESSION: No acute intracranial hemorrhage or extra axial fluid collections. All CT scans at this facility are performed using low dose modulation techniques as appropriate to perform exam including the following: automated exposure control; use of iterative reconstruction technique; adjustment of the mA and/or kV according to patient size (this includes techniques or standardized protocols for targeted exams where dose is matched to indication/reason for exam). Reviewed, dictated and finalized at location S. ATAL SPECIALIST IMPRESSION: No acute intracranial hemorrhage or extra axial fluid collections. All CT scans at this facility are performed using low dose modulation techniqu es as appropriate to perform exam including the following: automated exposure c ontrol; use of iterative reconstruction technique; adjustment of the mA and/or kV according to patient size (this includes techniques or standardized protocol s for targeted exams where dose is matched to indication/reason for exam).
--- NOTE | ~2025-06-21 | XR_ITS ---
XR chest 2V HOSTORY: dizziness COMPARISON:[ None] FINDINGS: Frontal and lateral views of the chest were obtained. Small bilateral pleural effusions and bilateral lower lobe infiltrates. The heart size is normal in size. Pulmonary vasculature is unremarkable. Osseous structures are intact. IMPRESSION: No acute lung findings.] Small bilateral pleural effusions and bilateral lower lobe infiltrates are noted. Reviewed, dictated and finalized at location S. R HELPER IMPRESSION: No acute lung findings.] Small bilateral pleural effusions and bilateral lower lobe infiltrates are note d.
--- NOTE | ~2025-06-21 | CT_ITS ---
CT diagnostic chest wo con HISTORY:sternal pain (hx fall); b/l pleural effusions COMPARISON: None. TECHNIQUE: Axial images of the chest were obtained without infusion of intravenous contrast. Dose optimization technique was utilized. FINDINGS: The examination demonstrates no pulmonary nodules, infiltrates and/or effusions. Cardiac size and mediastinal configuration are normal in appearance. No hilar or mediastinal lymphadenopathy is seen. The thoracic aorta is normal in caliber. Osseous structures are intact. IMPRESSION: No acute cardiopulmonary process. All CT scans at this facility are performed using low dose modulation techniques as appropriate to perform exam including the following: automated exposure control; use of iterative reconstruction technique; adjustment of the mA and/or kV according to patient size (this includes techniques or standardized protocols for targeted exams where dose is matched to indication/reason for exam). Reviewed, dictated and finalized at location S. CTOR OF FINANCIAL PLANNING IMPRESSION: No acute cardiopulmonary process. All CT scans at this facility are performed using low dose modulation techniqu es as appropriate to perform exam including the following: automated exposure c ontrol; use of iterative reconstruction technique; adjustment of the mA and/or kV according to patient size (this includes techniques or standardized protocol s for targeted exams where dose is matched to indication/reason for exam).
[2025-06-21 16:49] VITALS: BP 168/70; PULSE 72; RESP 16; TEMP 36.6; O2SAT 94
--- NOTE | 2025-06-21 18:31 | ED_ITS ---
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 2.13 (0.9-3.2) K/mm3 [place] # (Auto) 0.7 H (0.1-0.6) K/mm3 Eos # (Auto) 0.3 (0-0.3) K/mm3 Baso # (Auto) 0.0 (0.0-0.1) K/mm3 Abs Immat Gran (auto) 0.03 (0.00-0.031) K/mm3 Absolute Neuts (auto) 5.2 (1.3-6.7) K/mm3 Absolute Nucleated RBC 0.000 (0.0-0.012) K/mm3 Nucleated RBC % 0.0 (0.0-0.2) % Sodium 134 L (137-145) mmol/L Potassium 4.1 (3.4-5.0) mmol/L Chloride 96 L (98-107) mmol/L Carbon Dioxide 31 H (22-30) mmol/L Anion Gap 7 (4-12) mmol/L BUN 26 H (7-17) mg/dL Creatinine 1.50 H (0.7-1.0) mg/dL Estim Creat Clear Calc Not Reportable Estimated GFR 34 L (59 - ) Glucose 348 H (65-110) mg/dL POC Capillary Glucose 392 H (65-105) mg/dl Calcium 9.6 (8.4-10.2) mg/dL Phosphorus 2.6 (2.5-4.5) mg/dL Magnesium 1.9 (1.6-2.3) mg/dL Total Bilirubin 0.4 (0.2-1.3) mg/dL AST 32 (14-36) U/L ALT 33 (6-35) U/L Alkaline Phosphatase 132 H (38-126) U/L Total Creatine Kinase 140 H (30-135) U/L Troponin I < 0.012 (0.000-0.034) ng/mL NT-Pro-B Natriuret Pep 98 (19.9-100) pg/mL Total Protein 7.3 (6.3-8.2) g/dL Albumin 4.2 (3.5-5.1) g/dL Beta-Hydroxybutyrate/Acetoacetate 0.11 (0.02-0.27) mmol/L TSH 1.800 (0.465-4.680) uIU/mL Urine Color (Yellow) Urine Appearance (Clear) Urine pH (5.0-9.0) Ur Specific [place] (1.001-1.035) Urine Protein (Negative) mg/dL Urine Glucose (UA) (Negative) mg/dL Urine Ketones (Negative) mg/dL Ur Blood (Man) (Negative) Urine Nitrate (Negative) Urine Bilirubin (Negative) Urine Urobilinogen (<2.0) mg/dL Leukocyte Esterase Rfl (Negative) TENA/UL Influenza A (RT-PCR) Negative (Negative) Influenza B (RT-PCR) Negative (Negative) RSV (RT-PCR) Negative (Negative) SARS-CoV-2 RNA (RT-PCR) Negative (Negative) 06/21/25 Range/Units 23:30 WBC (4.5-10.0) K/mm3 RBC (4.2-5.4) M/mm3 Hgb (12.0-15.0) g/dL Hct (37.0-47.0) % MCV (80-100) fl MCH (26-34) pg MCHC (32-36) g/dl RDW (11.5-14.5) % Plt Count (150-375) k/mm3 MPV (7.4-10.4) fl Immature Gran % (Auto) (0-0.5) % Neut % (Auto) (45.5-73.1) % Lymph % (Auto) (18.3-44.2) % [place] % (Auto) (2.6-8.5) % Eos % (Auto) (0-4.4) % Baso % (Auto) (0.2-1.2) % Lymph # (Auto) (0.9-3.2) K/mm3 [place] # (Auto) (0.1-0.6) K/mm3 Eos # (Auto) (0-0.3) K/mm3 Baso # (Auto) (0.0-0.1) K/mm3 Abs Immat Gran (auto) (0.00-0.031) K/mm3 Absolute Neuts (auto) (1.3-6.7) K/mm3 Absolute Nucleated RBC (0.0-0.012) K/mm3 Nucleated RBC % (0.0-0.2) % Sodium (137-145) mmol/L Potassium (3.4-5.0) mmol/L Chloride (98-107) mmol/L Carbon Dioxide (22-30) mmol/L Anion Gap (4-12) mmol/L BUN (7-17) mg/dL Creatinine (0.7-1.0) mg/dL Estim Creat Clear Calc Estimated GFR (59 - ) Glucose (65-110) mg/dL POC Capillary Glucose (65-105) mg/dl Calcium (8.4-10.2) mg/dL Phosphorus (2.5-4.5) mg/dL Magnesium (1.6-2.3) mg/dL Total Bilirubin (0.2-1.3) mg/dL AST (14-36) U/L ALT (6-35) U/L Alkaline Phosphatase (38-126) U/L Total Creatine Kinase (30-135) U/L Troponin I (0.000-0.034) ng/mL NT-Pro-B Natriuret Pep (19.9-100) pg/mL Total Protein (6.3-8.2) g/dL Albumin (3.5-5.1) g/dL Beta-Hydroxybutyrate/Acetoacetate (0.02-0.27) mmol/L TSH (0.465-4.680) uIU/mL Urine Color Yellow (Yellow) Urine Appearance Clear (Clear) Urine pH 5.5 (5.0-9.0) Ur Specific [place] 1.019 (1.001-1.035) Urine Protein Negative (Negative) mg/dL Urine Glucose (UA) 3+ H (Negative) mg/dL Urine Ketones Negative (Negative) mg/dL Ur Blood (Man) Negative (Negative) Urine Nitrate Negative (Negative) Urine Bilirubin Negative (Negative) Urine Urobilinogen 0.2 (<2.0) mg/dL Leukocyte Esterase Rfl Negative (Negative) TENA/UL Influenza A (RT-PCR) (Negative) Influenza B (RT-PCR) (Negative) RSV (RT-PCR) (Negative) SARS-CoV-2 RNA (RT-PCR) (Negative) <Dimitris Cohen DO - Last Filed: 06/22/25 04:08> Imaging Data Attestation: I personally reviewed and interpreted this imaging study as follows: < Madiha Mobley MD - Last Filed: 06/21/25 22:41> My impression: CT scan does not demonstrate pleural effusions or consolidations or sternal fracture on my independent interpretation <Madiha Mobley MD - Last Filed: 06/21/25 22:41> Radiologist's impression: Impressions Chest X-Ray 06/21/25 19:03 IMPRESSION: No acute lung findings.] Small bilateral pleural effusions and bilateral lower lobe infiltrates are noted. Head CT 06/21/25 19:09 IMPRESSION: No acute intracranial hemorrhage or extra axial fluid collections. All CT scans at this facility are performed using low dose modulation techniques as appropriate to perform exam including the following: automated exposure control; use of iterative reconstruction technique; adjustment of the mA and/or kV according to patient size (this includes techniques or standardized protocols for targeted exams where dose is matched to indication/reason for exam). Knee X-Ray 06/21/25 21:21 IMPRESSION: No acute fracture or dislocation. Tricompartment osteoarthritis most significant in the lateral tibiofemoral compartment. Chest CT 06/21/25 21:33 IMPRESSION: No acute cardiopulmonary process. All CT scans at this facility are performed using low dose modulation techniques as appropriate to perform exam including the following: automated exposure control; use of iterative reconstruction technique; adjustment of the mA and/or kV according to patient size (this includes techniques or standardized protocols for targeted exams where dose is matched to indication/reason for exam). <Madiha Mobley MD - Last Filed: 06/21/25 22:41> ECG Data EKG #1: Attestation: I personally reviewed and interpreted this ECG as follows: < Madiha Mobley MD - Last Filed: 06/21/25 22:41> ECG completion date: 06/21/25 <Madiha Mobley MD - Last Filed: 06/21/25 22:41> ECG completion time: 21:43 <Madiha Mobley MD - Last Filed: 06/21/25 22:41> Interpretation: Normal sinus rhythm at a rate of 21 beats per minute. MI interval is at 200 milliseconds. QRS 89. QT/QTC 411/448. Good R-wave progression across the precordial leads. T-wave flattening in 3 but upright in contiguous inferior leads. No other T-wave inversions. There is very mild ST depression appreciated in V3. 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 Follow up with your PCP in the next week for reevaluation. Return to the ED for new or worsening symptoms. <Rebecca Ryder PA-C - Last Filed: 06/21/25 23:36> Patient Language: Bengali <Rebecca Ryder PA-C - Last Filed: 06/21/25 23:36> Prescriptions: No Action glucose [Dex4 Glucose] 4 gram tablet,chewable 4 gm PO Q15M PRN (Reason: Hypoglycemia) Rx Instructions: until symptoms of low blood sugar are controlled vitamin B complex [B Complex-Vitamin B12] Tablet 1 tablet PO DAILY donepezil 5 mg tablet 5 mg PO DAILY glipizide 10 mg tablet PO hydralazine 25 mg tablet 25 mg PO TID nitroglycerin [Nitrostat] 0.4 mg tablet, sublingual 0.4 mg sublingual Q5M PRN Rx Instructions: do not exceed 3 doses per episode diclofenac sodium [Arthritis Pain (diclofenac)] 1 % gel 2 g topical QID Qty: 100 0RF Rx Instructions: apply to single elbow, wrist or hand; for hand includes palm/fingers/back of hand triamcinolone acetonide 10 mg/mL suspension 20 mg intra-articular ONCE Qty: 2 0RF lidocaine (PF) 10 mg/mL (1 %) solution 40 mg intra-articular ONCE Qty: 4 0RF donepezil 10 mg tablet PO gabapentin 300 mg capsule 300 mg PO TID Qty: 90 3RF Gemtesa 75 mg tablet 75 mg PO DAILY Qty: 30 1RF Mounjaro 2.5 mg/0.5 mL pen injector 2.5 mg subcut WEEKLY 28 Days Qty: 2 0RF Artificial Tears([id number]) 1-0.2-0.2 % Drops 1 drp EACH EYE QID PRN (Reason: Dry Eye(S)) Qty: 15 0RF fluticasone propionate 50 mcg/actuation [place],Suspension 1 spray intranasal Q12HR Qty: 16 0RF Trelegy Ellipta 100-62.5-25 mcg blister with device 1 inh inhalation DAILY Qty: 60 0RF amoxicillin-pot clavulanate 875-125 mg tablet 1 tablet PO Q12H 7 Days Qty: 14 0RF nitrofurantoin monohyd/m-cryst [Macrobid] 100 mg capsule 100 mg PO Q12H 7 Days Qty: 14 0RF Rx Instructions: must administer with a meal/food polyethylene glycol 3350 [Miralax] 17 gram/dose powder 17 gm PO BID PRN (Reason: Constipation) alprazolam 0.5 mg tablet 1 mg PO BID tramadol 50 mg tablet 50 mg PO Q6H PRN (Reason: Pain (Scale Score 4-6)) ondansetron 4 mg tablet,disintegrating 4 mg PO Q8H PRN (Reason: nausea and vomiting) Qty: 14 0RF calcium carbonate 500 mg calcium (1,250 mg) Tablet,Chewable 200 mg PO Q6H PRN (Reason: Indigestion) Qty: 10 0RF methenamine hippurate 1 gram tablet 1 g PO BID Qty: 30 0RF cholecalciferol (vitamin D3) 1,250 mcg (50,000 unit) capsule 1,250 mcg PO WEEKLY Qty: 8 0RF ferrous sulfate 325 mg (65 mg iron) tablet 325 mg PO DAILY Qty: 30 0RF paroxetine HCl 40 mg tablet 40 mg PO DAILY Qty: 30 0RF paroxetine HCl 20 mg tablet 20 mg PO DAILY Qty: 90 0RF pantoprazole 40 mg tablet,delayed release (DR/EC) 40 mg PO DAILY Qty: 30 6RF furosemide 20 mg tablet 20 mg PO QAM Qty: 30 6RF carvedilol [Coreg] 25 mg tablet 25 mg PO BID Qty: 60 4RF Rx Instructions: must administer with a meal/food aspirin [Adult Low Dose Aspirin] 81 mg tablet,delayed release (DR/EC) 81 mg PO DAILY Qty: 30 1RF Januvia 100 mg tablet 100 mg PO QAM Qty: 30 6RF atorvastatin 20 mg tablet 20 mg PO HS Qty: 30 6RF multivitamin with folic acid [Tab-A-[place]] 400 mcg tablet See Rx Instructions .ROUTE .COMPLEX Qty: 30 3RF Dose Instruction: TAKE 1 TABLET BY MOUTH ONCE DAILY Rx Instructions: TAKE 1 TABLET BY MOUTH ONCE DAILY methocarbamol 750 mg tablet See Rx Instructions .ROUTE .COMPLEX Qty: 60 0RF Dose Instruction: TAKE 1 TABLET BY MOUTH THREE TIMES DAILY NEEDED FOR MUSCLE SPASM Rx Instructions: TAKE 1 TABLET BY MOUTH THREE TIMES DAILY NEEDED FOR MUSCLE SPASM buspirone 10 mg tablet See Rx Instructions .ROUTE .COMPLEX Qty: 180 0RF Dose Instruction: TAKE 2 TABLETS BY MOUTH THREE TIMES DAILY Rx Instructions: TAKE 2 TABLETS BY MOUTH THREE TIMES DAILY montelukast 10 mg tablet 10 mg PO HS Qty: 30 0RF acetaminophen 325 mg capsule 650 mg PO Q6H PRN (Reason: Pain (Scale Score 1-3)) Qty: 90 0RF insulin lispro [Humalog KwikPen Insulin] 100 unit/mL insulin pen 1 sliding scale dose subcut .with meals Qty: 15 0RF Rx Instructions: glucose < 70 mg/dl Follow hypoglycemia order; glucose 70-200 mg/dl No additional insulin; glucose 201-250 mg/dl 4 units sub-Q; glucose 251-300 mg/dl 5 units sub-Q; glucose 301-350 mg/dl 6 units sub-Q glucose 351-400 mg/dl 8 units sub-Q; glucose > 400 mg/dl Call Max 24 units daily <Rebecca Ryder PA-C - Last Filed: 06/21/25 23:36> Follow-up/Referrals: Pola Huston MD [Physician, Orthopedics] Bryce Rhodes MD [Primary Care Provider, [facility]] <Rebecca Ryder PA-C - Last Filed: 06/21/25 23:36>
--- NOTE | 2025-06-21 18:32 | ECG_ITS ---
Test Date: 2025-06-21 21:43:38 Measurements Intervals [place] Rate: 71 P: 49 TN: 200 QRS: 29 QRSD: 89 T: 39 QT: 411 QTc: 448 Interpretive Statements SINUS RHYTHM MINIMAL ST DEPRESSION [0.025+ mV ST DEPRESSION] Compared to ECG 06/15/2025 09:01:07 ST (T wave) deviation now present T-wave abnormality no longer present Electronically Signed On 06-22-2025 17:34:04 NURSE OFFICE by Gladis Rand M.D.
[2025-06-21 19:38] LABS: Hematocrit 41.3 % (37.0-47.0); Hemoglobin 13.7 g/dL (12.0-15.0); Immature Granulocyte Percent A 0.4 % (0-0.5); Lymphocytes Absolute Auto 2.13 K/mm3 (0.9-3.2); Mean Corpuscular HGB Conc 33.2 g/dl (32-36); Mean Corpuscular Hemoglobin 30.0 pg (26-34); Mean Corpuscular Volume 90.6 fl (80-100); Nucleated Red Blood Cells Absolute Auto 0.000 K/mm3 (0.0-0.012); Nucleated Red Blood Cells Perc 0.0 % (0.0-0.2); Platelet Count Result 192 k/mm3 (150-375); Red Blood Count 4.56 M/mm3 (4.2-5.4); White Blood Count 8.3 K/mm3 (4.5-10.0)
[2025-06-21 19:48] LABS: Alanine Aminotransferase 33 U/L (6-35); Albumin Level 4.2 g/dL (3.5-5.1); Alkaline Phosphatase 132 U/L (38-126); Anion Gap 7 mmol/L (4-12); Aspartate Amino Transferase 32 U/L (14-36); Bilirubin,Total 0.4 mg/dL (0.2-1.3); Blood Urea Nitrogen 26 mg/dL (7-17); Calcium 9.6 mg/dL (8.4-10.2); Carbon Dioxide 31 mmol/L (22-30); Chloride 96 mmol/L (98-107); Estimated Glomerular Filt Rate 34; Glucose 348 mg/dL (65-110); Magnesium 1.9 mg/dL (1.6-2.3); Potassium 4.1 mmol/L (3.4-5.0); Sodium 134 mmol/L (137-145); Total Protein 7.3 g/dL (6.3-8.2)
[2025-06-21 19:55] LABS: Beta-Hydroxybutyrate/Acetoace. 0.11 mmol/L (0.02-0.27)
[2025-06-21 21:20] LABS: Creatine Kinase 140 U/L (30-135)
[2025-06-21 21:33] LABS: NT Pro B Type Natriuretic Pept 98 pg/mL (19.9-100)
[2025-06-21 21:34] LABS: Troponin I < 0.012 ng/mL (0.000-0.034)
[2025-06-21 21:44] LABS: Influenza A QL RT-PCR Negative (Negative); Influenza B QL RT-PCR Negative (Negative); RSV RNA, RT-PCR Negative (Negative); SARS-CoV-2 RNA PCR Negative (Negative)
[2025-06-21] MEDS: SODIUM CHLORIDE 0.9% IV 500 ML 999 ML IV CONT (21:49)
[2025-06-21 21:52] LABS: Thyroid Stimulating Hormone 1.800 uIU/mL (0.465-4.680)
[2025-06-21 23:39] LABS: Add Urine Microscopic? NO; Appearance Urine Clear (Clear); Glucose Urine UA 3+ mg/dL (Negative); Leukocyte Esterase Ur Negative LEU/UL (Negative); Nitrate Urine Negative (Negative); Specific Grav Ur 1.019 (1.001-1.035)
[2025-06-22 03:03] VITALS: BP 135/75; PULSE 77; RESP 16; O2SAT 99
== END 2025-06-22 03:04 ==
PROVIDERS: Physician Assistant; Emergency Provider Student in an Organized Health Care Education/Training Program; PCP Family Medicine
DX: E11.65 Type 2 diabetes mellitus with hyperglycemia (principal); N17.9 Acute kidney failure, unspecified; M17.11 Unilateral primary osteoarthritis, right knee; R53.1 Weakness; M25.361 Other instability, right knee; R74.8 Abnormal levels of other serum enzymes; Z79.4 Long term (current) use of insulin; I13.0 Hypertensive heart and chronic kidney disease with heart failure and stage 1 through stage 4 chronic kidney disease, or unspecified chronic kidney disease; N18.30 Chronic kidney disease, stage 3 unspecified; I50.9 Heart failure, unspecified; F03.90 Unspecified dementia, unspecified severity, without behavioral disturbance, psychotic disturbance, mood disturbance, and anxiety; E78.5 Hyperlipidemia, unspecified; K21.9 Gastro-esophageal reflux disease without esophagitis; I25.10 Atherosclerotic heart disease of native coronary artery without angina pectoris; D64.9 Anemia, unspecified; I25.2 Old myocardial infarction; J45.909 Unspecified asthma, uncomplicated
CPT/HCPCS: 36415; 70450; 71046; 71250; 73560; 80053; 81003; 82010; 82550; 82948; 83735; 83880; 84100; 84443; 84484; 85025; 87637; 93005; 96360; 99284; J7040

== ENCOUNTER 2025-06-29 12:14 | Emergency (ER) | payer MEDICARE, MEDICAID, SELFPAY ==
[2025-06-29] VITALS (14 sets, daily range): BP systolic 136–178; BP diastolic 63–84; PULSE 70–87; RESP 14–22; TEMP 36.6; O2SAT 87–96
--- NOTE | ~2025-06-29 | CT_ITS ---
EXAMINATION: CT abdomen pelvis w con DATE: 06/29/2025 15:58 INDICATION: Lower abdominal pain. TECHNIQUE: Computed tomography (CT) of the abdomen and pelvis was performed with 100 mL Omnipaque-350 intravenous contrast. Automated exposure control and iterative reconstruction technique were employed. The dose-length product was 1096.64 mGy-cm. COMPARISON: Chest CT dated 06/21/[address] abdomen and pelvis dated 01/05/2025 FINDINGS: There are new small centrilobular nodules and groundglass opacities in the right middle and lower lobes suspicious for pneumonia. Heart size is normal. Atherosclerotic coronary artery calcifications. No pericardial or pleural effusion. Small sliding-type hiatal hernia with change of likely prior hernia repair with Kwesi fundoplication. Liver, gallbladder, spleen, pancreas, bilateral adrenal glands are normal. Likely age-related mild bilateral renal cortical atrophy with bilateral low-attenuation renal cysts the largest on the left measuring 2.0 cm. Moderate diverticulosis along the descending and sigmoid colon. There is inflammatory stranding at the junction of the descending and sigmoid colon consistent with diverticulitis. No bowel obstruction. Bladder is normal. The uterus is not identified and has likely been surgically resected. Bilateral adnexa are unremarkable. No abscess or free intraperitoneal gas or fluid. No pathologically enlarged abdominal or pelvic lymphadenopathy. Severe lumbosacral and mild to moderate lumbar and lower thoracic spondylosis. Chronic T10 and L2 compression fractures with change of prior vertebroplasty. L4 hemangioma. IMPRESSION: 1. Radiographically uncomplicated diverticulitis at the junction of the descending and sigmoid colon. 2. New centrilobular nodules and groundglass opacities in the right middle and lower lobes consistent with pneumonia. Reviewed, dictated and finalized at location A. [employer] DEL[employer] IMPRESSION: 1. Radiographically uncomplicated diverticulitis at the junction of the descend ing and sigmoid colon. 2. New centrilobular nodules and groundglass opacities in the right middle and lower lobes consistent with pneumonia.
--- NOTE | 2025-06-29 13:59 | ECG_ITS ---
Test Date: 2025-06-29 14:29:26 Measurements Intervals [place] Rate: 69 P: 52 [place]: 200 QRS: 33 QRSD: 93 T: 54 QT: 415 QTc: 447 Interpretive Statements SINUS RHYTHM MINIMAL ST DEPRESSION [0.025+ mV ST DEPRESSION] ABNORMAL ECG Electronically Signed On 06-29-2025 16:01:15 LIGHT EQUIPMENT OPERATOR by Joe Dawson M.D.
[2025-06-29 14:30] LABS: Hematocrit 38.3 % (37.0-47.0); Hemoglobin 12.8 g/dL (12.0-15.0); Immature Granulocyte Percent A 0.7 % (0-0.5); Lymphocytes Absolute Auto 2.01 K/mm3 (0.9-3.2); Mean Corpuscular HGB Conc 33.4 g/dl (32-36); Mean Corpuscular Hemoglobin 30.7 pg (26-34); Mean Corpuscular Volume 91.8 fl (80-100); Nucleated Red Blood Cells Absolute Auto 0.000 K/mm3 (0.0-0.012); Nucleated Red Blood Cells Perc 0.0 % (0.0-0.2); Platelet Count Result 201 k/mm3 (150-375); Red Blood Count 4.17 M/mm3 (4.2-5.4); White Blood Count 17.5 K/mm3 (4.5-10.0)
[2025-06-29 14:34] LABS: Add Urine Microscopic? NO; Appearance Urine Clear (Clear); Glucose Urine UA 3+ mg/dL (Negative); Leukocyte Esterase Ur Negative LEU/UL (Negative); Nitrate Urine Negative (Negative); Specific Grav Ur 1.015 (1.001-1.035)
[2025-06-29 14:45] LABS: INR 1.1; Prothrombin Time 14.3 Seconds (11.1-14.7)
[2025-06-29 14:46] LABS: Partial Thromboplastin Time 30.9 Seconds (22.3-36.8)
[2025-06-29 14:53] LABS: Alanine Aminotransferase 30 U/L (6-35); Albumin Level 4.0 g/dL (3.5-5.1); Alkaline Phosphatase 115 U/L (38-126); Anion Gap 9 mmol/L (4-12); Aspartate Amino Transferase 30 U/L (14-36); Bilirubin,Total 0.7 mg/dL (0.2-1.3); Blood Urea Nitrogen 23 mg/dL (7-17); Calcium 9.0 mg/dL (8.4-10.2); Carbon Dioxide 31 mmol/L (22-30); Chloride 95 mmol/L (98-107); Estimated CRCL calculation 42 ml/min; Estimated Glomerular Filt Rate 51; Glucose 315 mg/dL (65-110); Potassium 3.3 mmol/L (3.4-5.0); Sodium 135 mmol/L (137-145); Total Protein 7.2 g/dL (6.3-8.2)
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
[2025-06-29] MEDS: SODIUM CHLORIDE 0.9% IV 1,000 ML 999 ML IV CONT (15:38)
[2025-06-29] MEDS: INSULIN HUMAN REGULAR (*BKC) 100 UNITS/ML IV PUSH (16:21)
[2025-06-29] MEDS: DOXYCYCLINE HYCLATE 100 MG TABLET PO (16:57)
[2025-06-29] MEDS: ONDANSETRON INJ 4 MG/2 ML VIAL IV PUSH (17:29)
== END 2025-06-29 20:25 | disposition home or self-care (01) ==
PROVIDERS: Physician Assistant; Emergency Provider Student in an Organized Health Care Education/Training Program; PCP Family Medicine
DX: J18.9 Pneumonia, unspecified organism (principal); K57.32 Diverticulitis of large intestine without perforation or abscess without bleeding; E11.65 Type 2 diabetes mellitus with hyperglycemia; Z79.4 Long term (current) use of insulin; R94.31 Abnormal electrocardiogram [ECG] [EKG]; Z87.440 Personal history of urinary (tract) infections; F03.90 Unspecified dementia, unspecified severity, without behavioral disturbance, psychotic disturbance, mood disturbance, and anxiety; J44.9 Chronic obstructive pulmonary disease, unspecified; I13.0 Hypertensive heart and chronic kidney disease with heart failure and stage 1 through stage 4 chronic kidney disease, or unspecified chronic kidney disease; N18.30 Chronic kidney disease, stage 3 unspecified; I50.9 Heart failure, unspecified; E78.5 Hyperlipidemia, unspecified; I25.10 Atherosclerotic heart disease of native coronary artery without angina pectoris; Z86.73 Personal history of transient ischemic attack (TIA), and cerebral infarction without residual deficits; D64.9 Anemia, unspecified; F41.9 Anxiety disorder, unspecified; F32.A Depression, unspecified; M19.90 Unspecified osteoarthritis, unspecified site; I25.2 Old myocardial infarction
CPT/HCPCS: 36415; 74177; 80053; 81003; 82948; 85025; 85610; 85730; 93005; 96361; 96374; 96375; 99284; A9270; J1815; J2405; J7030; Q9967

== ENCOUNTER 2025-06-30 12:04 | Inpatient (IN) | payer MEDICARE, MEDICAID, SELFPAY ==
[2025-06-30] VITALS (8 sets, daily range): BP systolic 124–136; BP diastolic 52–79; PULSE 64–73; RESP 16–20; TEMP 36.3–36.4; O2SAT 92–100; BMI 32.1
--- NOTE | ~2025-06-30 | XR_ITS ---
EXAMINATION: XR chest 1V portable DATE: 07/05/2025 11:29 INDICATION: Shortness of breath TECHNIQUE: frontal view of the chest was obtained. COMPARISON: Chest radiograph dated 06/30/2025 FINDINGS: Linear bandlike opacities in the right mid and lower lung zones consistent with discoid atelectasis. Remainder of lungs are clear. No pulmonary edema, pleural effusion or pneumothorax. Heart size is normal. Small hiatal hernia. IMPRESSION: 1. Discoid atelectasis in the right mid and lower lungs. No other acute cardiopulmonary disease. 2. Small hiatal hernia. Reviewed, dictated and finalized at location A. AL FUND ANALYST IMPRESSION: 1. Discoid atelectasis in the right mid and lower lungs. No other acute cardiop ulmonary disease. 2. Small hiatal hernia.
--- NOTE | ~2025-06-30 | XR_ITS ---
EXAMINATION: XR chest 1V DATE: 06/30/2025 13:17 INDICATION: Pneumonia TECHNIQUE: A single frontal view of the chest was obtained. COMPARISON: June 21, 2025 FINDINGS: Patchy consolidative changes in the lung bases. Mid and upper lung maria are clear. Heart shadow normal. IMPRESSION: 1. Probably bibasilar infiltrates which could be associated pneumonia or aspiration. Reviewed, dictated and finalized at location A. DING ILLUMINATING ENGINEER IMPRESSION: 1. Probably bibasilar infiltrates which could be associated pneumonia or aspira tion.
--- NOTE | ~2025-06-30 | XR_ITS ---
EXAM/PROCEDURE: XR barium swallow modified HISTORY: Recommendations per speech COMPARISON: None available. TECHNIQUE: Modified barium swallow Fluoroscopy time: Fluoroscopy time: 0.8 minutes DAP: 0.611 gonzalez per square centimeter FINDINGS: No aspiration observed IMPRESSION: No aspiration observed. See speech therapist's note for complete evaluation. Reviewed, dictated and finalized at location A. OR APPLICATION SOFTWARE ENGINEER
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
[2025-06-30 13:58] LABS: Hematocrit 35.2 % (37.0-47.0); Hemoglobin 11.7 g/dL (12.0-15.0); Immature Granulocyte Percent A 0.6 % (0-0.5); Lymphocytes Absolute Auto 1.25 K/mm3 (0.9-3.2); Mean Corpuscular HGB Conc 33.2 g/dl (32-36); Mean Corpuscular Hemoglobin 30.5 pg (26-34); Mean Corpuscular Volume 91.9 fl (80-100); Nucleated Red Blood Cells Absolute Auto 0.000 K/mm3 (0.0-0.012); Nucleated Red Blood Cells Perc 0.0 % (0.0-0.2); Platelet Count Result 173 k/mm3 (150-375); Red Blood Count 3.83 M/mm3 (4.2-5.4); White Blood Count 9.6 K/mm3 (4.5-10.0)
[2025-06-30 14:16] LABS: INR 1.1; Partial Thromboplastin Time 36.1 Seconds (22.3-36.8); Prothrombin Time 14.3 Seconds (11.1-14.7)
[2025-06-30 14:21] LABS: Alanine Aminotransferase 23 U/L (6-35); Albumin Level 3.4 g/dL (3.5-5.1); Alkaline Phosphatase 120 U/L (38-126); Anion Gap 7 mmol/L (4-12); Aspartate Amino Transferase 21 U/L (14-36); Bilirubin,Total 0.4 mg/dL (0.2-1.3); Blood Urea Nitrogen 18 mg/dL (7-17); Calcium 8.1 mg/dL (8.4-10.2); Carbon Dioxide 30 mmol/L (22-30); Chloride 94 mmol/L (98-107); Estimated CRCL calculation 40 ml/min; Estimated Glomerular Filt Rate 51; Glucose 569 mg/dL (65-110); Potassium 3.9 mmol/L (3.4-5.0); Sodium 131 mmol/L (137-145); Total Protein 6.1 g/dL (6.3-8.2)
[2025-06-30 14:30] LABS: CRP 16.0 mg/dL (<1.0)
[2025-06-30] MEDS: SODIUM CHLORIDE 0.9% IV 1,000 ML 999 ML IV CONT (14:41)
[2025-06-30] MEDS: INSULIN HUMAN REGULAR (*BKC) 100 UNITS/ML 10 UNITS IV PUSH (14:41)
[2025-06-30] MEDS: cefTRIAXone 2 GM in SODIUM CHLORIDE 0.9% IV 100 ML 200 ML IVPB (15:46)
[2025-06-30] MEDS: AZITHROMYCIN IV 500 MG in SODIUM CHLORIDE 0.9% IV 250 ML IVPB (16:20)
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
--- NOTE | 2025-06-30 17:50 | WPCEDHO ---
ED Hand Off Checklist All vitals saved:yes IV Site documented:yes All med administrations documented:yes Triage Note Triage Note pt to ED via [facility] from 06/30/25 12:11 [facility] for c/o decline in health. EMS reports pt was seen yesterday at this facility and diagnosed with pneumonia. daughter wanted her seen again today. pt is A&OX4. EMS got a BG of 505, insulin dependent, facility says they gave her 5 units this AM. HX diabetes, dementia, COPD pt wears 2L oxygen at bedtime Allergies meperidine Adverse Reaction (Mild, Verified 06/29/25 13:42) Diarrhea Family History (Last Reviewed 06/30/25 @ 17:44 by Julia Cowart, DOCK GRADER) Mother Family history of diabetes mellitus in first degree relative Family history of primary malignant neoplasm of liver Family history of heart disease in male family member before age 55 Family history of hearing loss Family history of liver disease Diabetes mellitus Cerebrovascular accident Family history of pancreatic cancer Hypertension Father Family history of emphysema Sibling Diabetes mellitus Other Depression Family history of alcoholism Family history of allergic disorder Family history of arthritis Family history of cardiovascular disease Family history of coronary artery disease Family history of malignant neoplasm Family history of mental disorder Family history of osteoporosis Administered/Completed Medications Discontinued Medications Sodium Chloride (Normal Saline Iv) 1,000 mls @ 999 mls/hr IV CONT .Q1H1M STA Stop: 06/30/25 15:24 Last Infusion: 06/30/25 15:40 Dose: Infused Documented By: Admin: 06/30/25 14:41 Dose: 999 mls/hr Documented By: ABEBE Ceftriaxone Sodium 2 gm/ (Sodium Chloride) 100 mls @ 200 mls/hr IVPB ONCE STA Stop: 06/30/25 15:48 Last Infusion: 06/30/25 16:20 Dose: Infused Documented By: Admin: 06/30/25 15:46 Dose: 200 mls/hr Documented By: ABEBE Azithromycin 500 mg/ Sodium (Chloride) 250 mls @ 250 mls/hr IVPB ONCE ONE Stop: 06/30/25 16:19 Last Admin: 06/30/25 16:20 Dose: 250 mls/hr Documented By: ABEBE Insulin Human Regular (Insulin Human Regular (*Bkc) 100 Units/Ml) 10 units IV PUSH ONCE ONE Stop: 06/30/25 14:25 Last Admin: 06/30/25 14:41 Dose: 10 units Documented By: ABEBE Co-signed By: ROXANNA Interventions/Assessments General Assessment Start: 06/30/25 12:02 Freq: Status: Complete Protocol: Document 06/30/25 12:18 KNW (Rec: 06/30/25 12:19 KNW [id number]) GA Neurological Assessment Level of Alert,Awake Consciousness Arousable to Verbal Orientation Oriented to Person,Oriented to Place,Oriented to Time Behavior Appropriate,Cooperative IV / Saline Lock, Insert Start: 06/30/25 12:02 Freq: Status: Active Protocol: Document 06/30/25 12:18 KNW (Rec: 06/30/25 12:18 KNW [id number]) IV Assessment Peripheral Access Left Hand IV Catheter Access Initiated Before Arrival Catheter Gauge 20 IV Site Assessment WNL IV Care and WNL Maintenance Last Vital Signs Temperature 97.6 F 06/30/25 12:11 Pulse Rate 69 06/30/25 16:22 Respiratory Rate 20 06/30/25 16:22 Pulse Oximetry 99 06/30/25 16:22 Blood Pressure 133/55 L 06/30/25 16:22 Blood Pressure Mean 81 06/30/25 16:22 Blood Pressure Position Sitting 06/30/25 12:11 Oxygen Delivery Room Air 06/30/25 12:11 Weight 82.3 kg 06/30/25 12:11 Last Result - Abnormals Only RBC 3.83 M/mm3 (4.2-5.4) L 06/30/25 13:49 Hgb 11.7 g/dL (12.0-15.0) L 06/30/25 13:49 Hct 35.2 % (37.0-47.0) L 06/30/25 13:49 MPV 11.1 fl (7.4-10.4) H 06/30/25 13:49 Immature Gran % (Auto) 0.6 % (0-0.5) H 06/30/25 13:49 Neut % (Auto) 76.7 % (45.5-73.1) H 06/30/25 13:49 Lymph % (Auto) 13.0 % (18.3-44.2) L 06/30/25 13:49 Harrison # (Auto) 0.7 K/mm3 (0.1-0.6) H 06/30/25 13:49 Abs Immat Gran (auto) 0.06 K/mm3 (0.00-0.031) H 06/30/25 13:49 Absolute Neuts (auto) 7.4 K/mm3 (1.3-6.7) H 06/30/25 13:49 Sodium 131 mmol/L (137-145) L 06/30/25 13:49 Chloride 94 mmol/L (98-107) L 06/30/25 13:49 BUN 18 mg/dL (7-17) H 06/30/25 13:49 Creatinine 1.04 mg/dL (0.7-1.0) H 06/30/25 13:49 Estimated GFR 51 (59-) L 06/30/25 13:49 Glucose 569 mg/dL (65-110) H* 06/30/25 13:49 POC Capillary Glucose 364 mg/dl (65-105) H 06/30/25 16:44 Lactic Acid 2.1 mmol/L (0.7-2.0) H 06/30/25 13:49 Calcium 8.1 mg/dL (8.4-10.2) L 06/30/25 13:49 C-Reactive Protein 16.0 mg/dL (<1.0) H 06/30/25 13:49 Total Protein 6.1 g/dL (6.3-8.2) L 06/30/25 13:49 Albumin 3.4 g/dL (3.5-5.1) L 06/30/25 13:49 Most Recent Suicide Severity Rating Suicide Severity Rating NO RISK INDICATED 06/30/25 12:11
--- NOTE | 2025-06-30 18:12 | ADMGEN ---
This patient, Arabella Pike, was admitted to 2 Medical Room 258-01. Patient/family oriented to hospital policies and general routines including ID bracelet, bed and alarms, visiting hours, pain management, procedures, bathroom and other care routines, personal items, smoking policy, room service/diet, and visiting hours. Information on how to activate the Rapid Response Team has been discussed. Patient/Family are encouraged to report perceived risks to care and to ask questions if they do not understand what they are told or what they should do.
[2025-06-30] MEDS: LACTATED RINGERS 1,000 ML 75 ML IV CONT (19:33)
[2025-06-30] MEDS: metroNIDAZOLE 500 MG/ISO 100ML 500 MG/100 ML BAG 100 MG IVPB (19:37)
--- OUTSIDE RECORDS SUMMARY | 2025-06-30 21:41 | XMS_ITS | Clinical Summary ---
Author Organization [facility] [employer] Address [address] [address] Care Team Providers Care Cycle Repairer Name Role Phone Jason Botello MD Primary Care Provider [phone] Source Comments [facility] [employer],non-owned Affiliates and Associated Physician Practices is amultiple site organization consisting of ambulatory clinics and hospital sitesin [place], [place], [place] and [place]. This disclosure is being madepursuant to the Care Everywhere program and may not contain all information available regarding this patient. Last updated 18.[employer] Allergies No known active allergies Medications * [...] series) 2021 DEPRESSION SCREENING 08/12/2024 COVID-19 VACCINE ( - 2024-2 6 season) 2025 INFLUENZA VACCINE (#1) 2025 HEPATITIS [...] age to complete this topic Insurance [facility] MEDICAID - [place] [facility] MANAGED MEDICARE ADV SELF PAY NO INSURANCE Member Subscriber Plan / Payer (Ef fective for All Dates) Name:Connor Pike [place] Member ID:Not on file Relation to Subscriber:Not on file Name:CONNOR PIKE Subscriber ID:Not on file (Home) Address: [address] [place] [address] [address] Payer ID:Not on file Group ID:Not on file Type:Self Pay Address: [place], [place] Advance Directives Documents on File Type Date Recorded 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
--- OUTSIDE RECORDS SUMMARY | 2025-06-30 21:41 | XMS_ITS | Clinical Summary ---
Author Organization [facility] Address [address] [place] [address] Phone Care Team Providers Care Combat Systems Operator Name Role Phone Karen Reyna JEFFERY Primary Care Provider [phone] Allergies Active Allergy Reactions Criticality Noted Date [...] hy 05/20/2018 Atherosclerotic heart diseas e of [place] coronary artery without angina pectoris 05/20/2018 Closed [...] on file Legal Sex Female 8:02 AM [facility] Gender Identity Not on file Sexual Orientation [...] [employer] MEDICARE ADVANTAGE MEDICARE ADVANTAGE Care Teams Combat Systems Operator Relationship Specialty Start Date End Date Karen Reyna FNP [address] [place] [address] PCP - General Family Medicine 07/04/21
[2025-06-30] MEDS: INSULIN ASPART (*BKC) 100 UNITS/ML SUB-Q (23:54)
[2025-07-01 05:14] LABS: Hematocrit 33.8 % (37.0-47.0); Hemoglobin 10.9 g/dL (12.0-15.0); Immature Granulocyte Percent A 0.6 % (0-0.5); Lymphocytes Absolute Auto 1.38 K/mm3 (0.9-3.2); Mean Corpuscular HGB Conc 32.2 g/dl (32-36); Mean Corpuscular Hemoglobin 30.1 pg (26-34); Mean Corpuscular Volume 93.4 fl (80-100); Nucleated Red Blood Cells Absolute Auto 0.000 K/mm3 (0.0-0.012); Nucleated Red Blood Cells Perc 0.0 % (0.0-0.2); Platelet Count Result 163 k/mm3 (150-375); Red Blood Count 3.62 M/mm3 (4.2-5.4); White Blood Count 8.7 K/mm3 (4.5-10.0)
[2025-07-01 05:35] LABS: Alanine Aminotransferase 20 U/L (6-35); Albumin Level 3.0 g/dL (3.5-5.1); Alkaline Phosphatase 99 U/L (38-126); Anion Gap 2 mmol/L (4-12); Aspartate Amino Transferase 42 U/L (14-36); Bilirubin,Total 0.4 mg/dL (0.2-1.3); Blood Urea Nitrogen 14 mg/dL (7-17); Calcium 8.0 mg/dL (8.4-10.2); Carbon Dioxide 33 mmol/L (22-30); Chloride 101 mmol/L (98-107); Estimated CRCL calculation 45 ml/min; Estimated Glomerular Filt Rate 56; Glucose 166 mg/dL (65-110); Magnesium 1.7 mg/dL (1.6-2.3); Potassium 3.4 mmol/L (3.4-5.0); Sodium 136 mmol/L (137-145); Total Protein 5.7 g/dL (6.3-8.2)
[2025-07-01] MEDS: metroNIDAZOLE 500 MG/ISO 100ML 500 MG/100 ML BAG 100 MG IVPB ×3 (06:08→21:50)
[2025-07-01] MEDS: INSULIN ASPART (*BKC) 100 UNITS/ML SUB-Q ×3 (06:37→21:50)
--- NOTE | 2025-07-01 07:53 | P.PNIM_ITS ---
Progress Note: A&P Assessment and Plan (1) Pneumonia: Qualifiers: Laterality: right Lung location: lower lobe of lung Pneumonia type: due to unspecified organism Qualified Code(s): J18.9 - Pneumonia, unspecified organism Code(s): J18.9 - Pneumonia, unspecified organism Status: Acute Assessment and Plan: 2 L home O2 at night Evaluated 06/29 in found to have pneumonia. Discharged home on Augmentin and Doxycycline. CXR showed probably bibasilar infiltrates which could be associated pneumonia or aspiration. CT of the abdomen/pelvis yesterday showed ground-glass opacities in the right middle and lower lobes consistent with pneumonia. - started on ceftriaxone and azithromycin on 06/30 - supportive care: Mucinex, Tessalon Perles, Tylenol, DuoNebs - speech to evaluate pending - monitor O2 saturations Recommending a barium swallow pending, patient passed her swallow (2) Diverticulitis of descending colon: Code(s): K57.32 - Diverticulitis of large intestine without perforation or abscess without bleeding Status: Acute Assessment and Plan: - CT abd/pelvis, 06/29: uncomplicated diverticulitis at the junction of the descending and sigmoid colon. - started on Ceftriaxone and Metronidazole on 06/30 - IV fluids: 1L bolus, now on 75 mL/hr x1L - NPO except ice chips, advance tomorrow to clear liquid and then further as tolerated. - pain medication prn - daily clinical reassessment for improvement (3) Lactic acidosis: Code(s): E87.20 - Acidosis, unspecified Status: Acute Assessment and Plan: Patient found to have pneumonia and acute uncomplicated diverticulitis. Started on ceftriaxone, azithromycin, Flagyl. - blood cultures obtained on 06/30, pending - monitor hemodynamic stability - no current leukocytosis, monitor (4) Insulin dependent type 2 diabetes mellitus: Code(s): E11.9 - Type 2 diabetes mellitus without complications; Z79.4 - long-term (current) use of insulin Status: Chronic Assessment and Plan: Arrived to the emergency department on 06/30 hyperglycemic with a glucose of 569, No anion gap. - hypoglycemia protocol - POC blood glucose Q6H until no longer NPO - Hold home sliding scale and Januvia. - correct regimen ordered - high dose Q6H, based off BMI - A1C 7.8% on 02/18/2025 (5) Hypertension: Qualifiers: Hypertension type: primary hypertension Qualified Code(s): I10 - Essential (primary) hypertension Code(s): I10 - Essential (primary) hypertension Status: Chronic Assessment and Plan: - chronic, currently 124/79, stable - continue home medications: Coreg 25 mg b.i.d. - monitor (6) Chronic kidney disease, stage 3: Qualifiers: Chronic kidney disease stage 3 subtype: stage 3a (GFR 45-59) Qualified Code(s): N18.31 - Chronic kidney disease, stage 3a Code(s): N18.30 - Chronic kidney disease, stage 3 unspecified Status: Chronic Assessment and Plan: Creatinine 1.04, BUN 18, and GFR 51 upon admission on 06/30. At baseline. - trend renal function - monitor electrolytes, correct as needed (7) Congestive heart failure: Qualifiers: Heart failure chronicity: chronic Heart failure type: unspecified Qualified Code(s): I50.9 - Heart failure, unspecified Code(s): I50.9 - Heart failure, unspecified Status: Chronic Assessment and Plan: previous echo, June of 2024. LV systolic function was normal with an estimated EF of 55-60%. RV size mildly dilated with normal systolic function. - received 1 L bolus, started on 75 mL/hour x1 L. Monitor for fluid overload - continue Lasix 20 mg daily (8) Iron deficiency anemia: Qualifiers: Iron deficiency anemia type: unspecified iron deficiency Qualified Code(s): D50.9 - Iron deficiency anemia, unspecified Code(s): D50.9 - Iron deficiency anemia, unspecified Status: Chronic Assessment and Plan: History of iron deficiency anemia. Hemoglobin 11.7 on upon admission on 06/30. Stable. No signs of bleeding - transfuse if <7 - monitor (9) Chronic respiratory failure with hypoxia, on home oxygen therapy: Code(s): J96.11 - Chronic respiratory failure with hypoxia; Z99.81 - Dependence on supplemental oxygen Status: Acute Assessment and Plan: Requires 2L at night chronically, continue. (10) Confusion: Code(s): R41.0 - Disorientation, unspecified Status: Acute Assessment and Plan: Patient called 911 several times after she was woken up by laboratory she thought this was breaking into her house Daughter is requested we limit testing trend midnight, and sleep hygiene Plan PT OT evaluate and treat activity as tolerated with assistance Diet: clear liquid on 07/01 GI Prophylaxis: n/a DVT Prophylaxis: Lovenox IV fluids: 1L -> 75 mL/hr x1L Lines/Tubes: Peripheral IV Code Status: Full code Time Spent With Patient Time with patient: Greater than 35 minutes Subjective Date/time seen: 07/01/25 07:53 Interval history: 79 y/o F with PMH of DM2, asthma/COPD, HLD, HTN, GERD, HFpEF, stroke, coronary artery disease, anemia, anxiety/depression, [place], and gastric ulcer presents here with general decline. Per nursing the patient was woken up by a.m. labs thinking they were intruder in her how she called 911 several times in the police showed up. Daughter is requesting that we limit interruption at night due to history of sundowning speech is recommending modified barium swallow, patient passed swallow Review of Systems Review of Systems: 12 systems were reviewed and are negativ e except for as per HPI. Exam Narrative: General: well appearing, appears stated age. HEENT: normocephalic, atraumatic. Mucous membranes moist. EOMI, PERRLA, bilateral sclera anicteric, no conjunctival injection. Neck supple without JVD, lymphadenopathy, or bruit. Respiratory: clear bilaterally. No rales/rhonic/wheezes. Cardiovascular: Regular rate and rhythm, normal S1-S2. No murmurs, rubs, or clicks. PMI is nondisplaced, capillary refill less than 3 second. Abdomen: Soft, round, no pulsatile masses, nondistended and nontender. No rebound, no guarding. Bowel sounds present to all four quadrants. No high pitch or tinkling sounds, resonant to percussion. Extremities: No cyanosis, clubbing, or edema present. Pulses are palpable 2/2. Active ROM to all four extremities. Neuro: Alert and orientated x 4. PERRLA. Cranial nerves 2-12 intact without focal deficit. Skin: Warm, dry, and intact, without rash, erythema, or lesion. Psych: pleasant, cooperative, normal speech, normal affect, no hallucinations, no dysarthia Objective Data Vital Signs Vital Signs: Vital Signs - 24 hr 06/30/25 12:11 06/30/25 14:21 06/30/25 15:52 Temperature 97.6 F Pulse Rate 71 69 71 Respiratory Rate 20 18 16 Blood Pressure 136/61 134/58 L 136/56 L Pulse Oximetry 92 98 98 Oxygen Delivery Room Air Oxygen Flow Rate 06/30/25 16:22 06/30/25 17:55 06/30/25 18:32 Temperature 97.4 F L Pulse Rate 69 64 69 Respiratory Rate 20 16 18 Blood Pressure 133/55 L 124/79 135/54 L Pulse Oximetry 99 100 99 Oxygen Delivery Oxygen Flow Rate 06/30/25 20:00 06/30/25 20:07 Temperature 97.6 F Pulse Rate 73 Respiratory Rate 16 Blood Pressure 130/52 L Pulse Oximetry 99 99 Oxygen Delivery Nasal Cannula Oxygen Flow Rate 2 Intake/Output Intake/Output: Intake & Output 06/28/25 06/29/25 06/30/25 07/01/25 23:59 23:59 23:59 23:59 Intake Total 1350 300 Balance 1350 300 Meds/Results Medications: Active Medications Generic Name Dose Route Start Last Admin Trade Name Freq PRN Reason Stop Dose Admin Acetaminophen 650 mg 06/30/25 17:56 Acetaminophen 325 Mg Tablet PO Q6H PRN Mild Pain (1-3) or Fever Hydrocodone Bitart/Acetaminophen 1 tab 06/30/25 17:56 Hydrocodone/Acetaminophen (*Crx) 5-325 Mg Tablet PO Q6H PRN Pain Rated 4-6 Albuterol/Ipratropium 3 ml 06/30/25 17:56 Ipratropium 0.5 Mg/Albuterol Sulfate 2.5 Mg (Base) Ampul.Neb 3 Ml INHALATION Q6HRT PRN Shortness Of Breath Or Wheezing Alprazolam 1.5 mg 06/30/25 21:00 06/30/25 22:10 Alprazolam (*Crx) 0.5 Mg Tablet PO Not Given HS SADI Alprazolam 1 mg 07/01/25 09:00 Alprazolam (*Crx) 0.5 Mg Tablet BY MOUTH TID SADI Artificial Tears 1 drop 06/30/25 21:10 Artificial Tears Ophth Soln 15 Ml Bottle EACH EYE QID PRN Dry Eye(s) Aspirin 81 mg 07/01/25 09:00 Aspirin 81 Mg Enteric Tablet PO DAILY SADI Atorvastatin Calcium 20 mg 07/01/25 21:00 Atorvastatin 20 Mg Tablet PO HS SADI Benzonatate 100 mg 06/30/25 17:56 Benzonatate 100 Mg Capsule PO TID PRN Cough Buspirone HCl 20 mg 07/01/25 09:00 Buspirone Hcl 10 Mg Tablet PO TID SADI Calcium Carbonate 200 mg 06/30/25 21:10 Calcium Carbonate (Tums) 500 Mg (200 Mg Elemental) PO Q6H PRN Indigestion Carvedilol 25 mg 07/01/25 09:00 Carvedilol 25 Mg Tablet PO Q12HR SADI Dextrose 12.5 gm 06/30/25 18:01 Dextrose 50% 25 Gm/50 Ml Syringe IV PUSH PRN PRN Hypoglycemia Protocol Dicyclomine HCl 20 mg 06/30/25 17:56 Dicyclomine Hcl 10 Mg Capsule PO QID PRN Abdominal Cramping Donepezil HCl 10 mg 06/30/25 21:10 06/30/25 22:10 Donepezil Hcl 10 Mg Tablet PO Not Given HS [facility] Enoxaparin Sodium 40 mg 07/01/25 09:00 Enoxaparin 40 Mg/0.4 Ml Syringe SUB-Q DAILY [facility] Ergocalciferol 1,250 mcg 07/07/25 09:00 Ergocalciferol (Vitamin D2) 1,250 Mcg (50,000 Units) Capsule PO WEEKLY [facility] Ferrous Sulfate 325 mg 07/01/25 09:00 Ferrous Sulfate 325 Mg Tablet BY MOUTH DAILY [facility] Fluticasone Propionate 1 spray 07/01/25 09:00 Fluticasone Propionate 0.05% Na Spr 16 Gm Btl (*Bkc) NASAL Q12HR [facility] Fluticasone/Umeclidinium/Vilanterol 1 puff 07/01/25 08:00 Fluticasone/Umeclidin/Vilanter 100-62.5-25 Mcg Ellipta INHALATION DAILYRT [facility] Furosemide 20 mg 07/01/25 09:00 Furosemide 20 Mg Tablet PO QAM [facility] Gabapentin 300 mg 07/01/25 09:00 Gabapentin 300 Mg Capsule PO TID [facility] Glucagon 1 mg 06/30/25 18:01 Glucagon For Inj 1 Mg Vial IM PRN PRN Hypoglycemia Protocol Glucose 15 gm 06/30/25 18:01 Glucose Oral Gel 15 Gm Of Glucse In 37.5 Gm Tube PO PRN PRN Hypoglycemia Protocol Guaifenesin 600 mg 06/30/25 21:00 06/30/25 20:48 Guaifenesin 12 Hr 600 Mg Tabcr PO Not Given Q12HR [facility] Metronidazole 500 mg in 100 mls @ 100 mls/hr 07/01/25 06:00 07/01/25 06:08 Flagyl 500 Mg/Iso Soln 100 Ml IVPB 100 mls/hr Q8HR SADI Administration Dextrose 1,000 mls @ 100 mls/hr 06/30/25 18:01 Dextrose 5% 1,000 Ml IVPB PRN PRN Hypoglycemia Protocol Insulin Aspart 4 - 8 units 07/01/25 00:00 07/01/25 06:37 Insulin Aspart (*Bkc) 100 Units/Ml SUB-Q 4 units Q6HR SADI Administration Protocol Methocarbamol 750 mg 06/30/25 21:10 Methocarbamol 750 Mg Tablet PO TID PRN MUSCLE SPASMS Miscellaneous Information 0 each 06/30/25 00:01 Gemtesa Nonform Can Pt Bring From Home? XX 07/30/25 00:00 CLARIFY SADI Montelukast Sodium 10 mg 07/01/25 21:00 Montelukast Sodium 10 Mg Tablet PO HS SADI Multivitamins/Minerals 1 tab 07/01/25 09:00 Multivitamins /C Lutein (Centrum Silver) Tablet *Bkc PO QAM [facility]ADI Non-Formulary Medication 75 mg 07/01/25 09:00 Vibegron [Gemtesa] PO 07/31/25 08:59 DAILY SADI Pantoprazole Sodium 40 mg 07/01/25 09:00 Pantoprazole 40 Mg Tablet PO DAILY SADI Paroxetine HCl 20 mg 07/01/25 09:00 Paroxetine 20 Mg Tablet PO DAILY [facility]I Paroxetine HCl 40 mg 07/01/25 09:00 Paroxetine 20 Mg Tablet PO DAILY [facility] Polyethylene Glycol 17 gm 06/30/25 21:10 Polyethylene Glycol 3350 17 Gm Powd.Pack PO BID PRN Constipation Tramadol HCl 50 mg 06/30/25 21:10 Tramadol Hcl (*Crx) 50 Mg Tablet PO Q6H PRN Pain (Scale Score 4-6) Vitamin B Complex 1 cap 07/01/25 09:00 Vitamin B Complex Capsule PO DAILY [facility] Radiology Results: ITS Impressions Chest X-Ray 06/30/25 13:17 IMPRESSION: 1. Probably bibasilar infiltrates which could be associated pneumonia or aspiration. Labs Labs: Laboratory Results - last 24 hr 06/30/25 06/30/25 06/30/25 13:49 14:33 16:34 WBC 9.6 RBC 3.83 L Hgb 11.7 L Hct 35.2 L MCV 91.9 MCH 30.5 MCHC 33.2 RDW 13.3 Plt Count 173 MPV 11.1 H Immature Gran % (Auto) 0.6 H Neut % (Auto) 76.7 H Lymph % (Auto) 13.0 L Norton % (Auto) 7.5 Eos % (Auto) 2.0 Baso % (Auto) 0.2 Lymph # (Auto) 1.25 Norton # (Auto) 0.7 H Eos # (Auto) 0.2 Baso # (Auto) 0.0 Abs Immat Gran (auto) 0.06 H Absolute Neuts (auto) 7.4 H Absolute Nucleated RBC 0.000 Nucleated RBC % 0.0 PT 14.3 INR 1.1 APTT 36.1 Sodium 131 L Potassium 3.9 Chloride 94 L Carbon Dioxide 30 Anion Gap 7 BUN 18 H Creatinine 1.04 H Estim Creat Clear Calc 40 Estimated GFR 51 L Glucose 569 H* POC Capillary Glucose > 500 H* Lactic Acid 2.1 H 1.8 Calcium 8.1 L Magnesium Total Bilirubin 0.4 AST 21 ALT 23 Alkaline Phosphatase 120 C-Reactive Protein 16.0 H Total Protein 6.1 L Albumin 3.4 L 06/30/25 06/30/25 07/01/25 16:44 23:48 05:04 WBC 8.7 RBC 3.62 L Hgb 10.9 L Hct 33.8 L MCV 93.4 MCH 30.1 MCHC 32.2 RDW 13.5 Plt Count 163 MPV 11.0 H Immature Gran % (Auto) 0.6 H Neut % (Auto) 71.2 Lymph % (Auto) 15.8 L Norton % (Auto) 9.1 H Eos % (Auto) 3.1 Baso % (Auto) 0.2 Lymph # (Auto) 1.38 Norton # (Auto) 0.8 H Eos # (Auto) 0.3 Baso # (Auto) 0.0 Abs Immat Gran (auto) 0.05 H Absolute Neuts (auto) 6.2 Absolute Nucleated RBC 0.000 Nucleated RBC % 0.0 PT INR APTT Sodium 136 L Potassium 3.4 Chloride 101 Carbon Dioxide 33 H Anion Gap 2 L BUN 14 Creatinine 0.96 Estim Creat Clear Calc 45 Estimated GFR 56 L Glucose 166 H POC Capillary Glucose 364 H 286 H Lactic Acid Calcium 8.0 L Magnesium 1.7 Total Bilirubin 0.4 AST 42 H ALT 20 Alkaline Phosphatase 99 C-Reactive Protein Total Protein 5.7 L Albumin 3.0 L 07/01/25 06:35 WBC RBC Hgb Hct MCV MCH MCHC RDW Plt Count MPV Immature Gran % (Auto) Neut % (Auto) Lymph % (Auto) Norton % (Auto) Eos % (Auto) Baso % (Auto) Lymph # (Auto) Norton # (Auto) Eos # (Auto) Baso # (Auto) Abs Immat Gran (auto) Absolute Neuts (auto) Absolute Nucleated RBC Nucleated RBC % PT INR APTT Sodium Potassium Chloride Carbon Dioxide Anion Gap BUN Creatinine Estim Creat Clear Calc Estimated GFR Glucose POC Capillary Glucose 203 H Lactic Acid Calcium Magnesium Total Bilirubin AST ALT Alkaline Phosphatase C-Reactive Protein Total Protein Albumin Quality VTE Prophylaxis VTE prophylaxis: pharmacologic ordered
[2025-07-01] MEDS: FLUTICASONE/UMECLIDIN/VILANTER 100-62.5-25 MCG ELLIPTA 1 PUFF INHALATION (10:48)
[2025-07-01 10:49] VITALS: O2SAT 99
--- NOTE | 2025-07-01 12:05 | PCSTNOTE ---
Please refer to the Modified Barium Swallow Evaluation in the EMR. Pt is a 79 year old women with a past medical history of DM2, asthma/COPD, HLD, HTN, GERD, previous CVA, CAD, anemia, [place], and gastric decline. She presents this admission for general decline and was diagnosed with pneumonia on a recent CXR. Bedside swallow evaluation orders placed due to concern for aspiration as the cause for her current pneumonia. Upon discussion with RN, pt with dementia at baseline; however, alert and cooperative at this time. RN agreeable to evaluation and aided COMPLIANCE TESTING ANALYST in repositioning pt to an upright position in bed. Pt was agreeable to evaluation and provided insight into her swallowing difficulties. Pt reports a globus sensation at the level of the thyroid notch with thin liquids and states that it is hard for her to sense if liquids are swallowed correctly. An oral mechanism exam was completed and was remarkable for minimal missing dentition. PO trials included ice chips, thin liquids via teaspoon, cup edge, and straw sip, and pudding. Pt self fed for a majority of trials and followed all directives. Pt noted with a timely oral phase of the swallow across all trials. With trial of self controlled cup edge drink of thin liquids, pt presented with immediate coughingx1. When a straw sip was presented of thin liquids, pt presented with throat clearing after the swallow. Delayed coughing x3 was also noted after all trials had been completed. Of note, pt demonstrated slight distress during self controlled trials of thin liquids (i.e. pt eyes widened and an effortful swallow was noted). Throat clearing, coughing, and distress could indicate penetration or aspiration. No overt signs or symptoms of aspiration were noted with trials of pudding, ice chips, or small volume sips of thin liquids. Recommendations: 1. NPO until MBSS to further evaluate pt's swallow function and safety 2. Medications may be administered with pudding if needed; okay for ice chips with supervision for comfort
--- NOTE | 2025-07-01 12:10 | PCSTNOTE ---
Please refer to the Bedside Swallow Evaluation in the EMR. Please note, silent aspiration cannot be ruled out at bedside. Pt is a 79 year old women with a past medical history of DM2, asthma/COPD, HLD, HTN, GERD, previous CVA, CAD, anemia, [place], and gastric decline. She presents this admission for general decline and was diagnosed with pneumonia on a recent CXR. Bedside swallow evaluation orders placed due to concern for aspiration as the cause for her current pneumonia. Upon discussion with RN, pt with dementia at baseline; however, alert and cooperative at this time. RN agreeable to evaluation and aided CAR GREASER in repositioning pt to an upright position in bed. Pt was agreeable to evaluation and provided insight into her swallowing difficulties. Pt reports a globus sensation at the level of the thyroid notch with thin liquids and states that it is hard for her to sense if liquids are swallowed correctly. An oral mechanism exam was completed and was remarkable for minimal missing dentition. PO trials included ice chips, thin liquids via teaspoon, cup edge, and straw sip, and pudding. Pt self fed for a majority of trials and followed all directives. Pt noted with a timely oral phase of the swallow across all trials. With trial of self controlled cup edge drink of thin liquids, pt presented with immediate coughingx1. When a straw sip was presented of thin liquids, pt presented with throat clearing after the swallow. Delayed coughing x3 was also noted after all trials had been completed. Of note, pt demonstrated slight distress during self controlled trials of thin liquids (i.e. pt eyes widened and an effortful swallow was noted). Throat clearing, coughing, and distress could indicate penetration or aspiration. No overt signs or symptoms of aspiration were noted with trials of pudding, ice chips, or small volume sips of thin liquids. Recommendations: 1. NPO until MBSS to further evaluate pt's swallow function and safety 2. Medications may be administered with pudding if needed; okay for ice chips with supervision for comfort
[2025-07-01] MEDS: FUROSEMIDE 20 MG TABLET PO (12:46)
[2025-07-01] MEDS: PANTOPRAZOLE 40 MG TABLET PO (12:46)
[2025-07-01 12:47] VITALS: PULSE 78
[2025-07-01] MEDS: VITAMIN B COMPLEX CAPSULE 1 CAP PO (12:47)
[2025-07-01] MEDS: guaiFENesin 12 HR 600 MG TABCR PO ×2 (12:47→21:01)
[2025-07-01] MEDS: ASPIRIN 81 MG ENTERIC TABLET PO (12:47)
[2025-07-01] MEDS: ALPRAZolam (*CRX) 0.5 MG TABLET 1 MG BY MOUTH ×2 (12:48→17:27)
[2025-07-01] MEDS: MULTIVITAMINS /C LUTEIN (CENTRUM SILVER) TABLET *BKC 1 TAB PO (12:49)
[2025-07-01] MEDS: FERROUS SULFATE 325 MG TABLET BY MOUTH (12:49)
[2025-07-01] MEDS: ENOXAPARIN 40 MG/0.4 ML SYRINGE SUB-Q (12:49)
[2025-07-01] MEDS: GABAPENTIN 300 MG CAPSULE PO ×2 (12:49→17:26)
[2025-07-01 14:00] VITALS: BP 134/62; PULSE 76; RESP 18; TEMP 36.3; O2SAT 96
--- NOTE | 2025-07-01 14:10 | PCSTNOTE ---
Please refer to the Modified Barium Swallow Evaluation in the EMR. The patient is a 79 year old female admitted with a pneumonia diagnosis and with noted concerns for aspiration based on a BSE completed this date 07/01/25. The patient is seen in radiology to complete a MBS and r/o aspiration. The patient was positioned in a lateral view and presented the following consistencies: 5cc/tsp thin liquid barium, cup trials thin liquid barium, and liquid barium via a straw, pudding mixed with barium paste, and cracker coated with barium paste. Oral Stage: Oral preparation and transit was viewed to be timely for all consistencies. Pharyngeal Stage: When presented all the above consistencies swallow initiation was completed in a timely manner without viewed aspiration or penetration. No residual was viewed to remain in the valleculae or pyriform sinus. Recommend 1. Regular Diet / Level 7 2. Thin Liquid / Level 0 3. May eat independently 4. Upright with meals Thank you for the consult.
[2025-07-01] MEDS: ACETAMINOPHEN 325 MG TABLET 650 MG PO (14:53)
[2025-07-01 20:00] VITALS: O2SAT 96
[2025-07-01 20:59] VITALS: PULSE 70
[2025-07-01] MEDS: ALPRAZolam (*CRX) 0.5 MG TABLET 1.5 MG PO (21:00)
[2025-07-01] MEDS: MONTELUKAST SODIUM 10 MG TABLET PO (21:00)
[2025-07-01] MEDS: DONEPEZIL HCL 10 MG TABLET PO (21:01)
[2025-07-01] MEDS: FLUTICASONE PROPIONATE 0.05% NA SPR 16 GM BTL (*BKC) 1 SPRAY NASAL (21:01)
[2025-07-01] MEDS: ATORVASTATIN 20 MG TABLET PO (21:01)
[2025-07-01 21:35] VITALS: BP 133/53; PULSE 69; RESP 16; TEMP 36.4; O2SAT 96
[2025-07-02] VITALS (9 sets, daily range): BP systolic 155–158; BP diastolic 60–76; PULSE 68–84; RESP 16–24; TEMP 36.3–36.6; O2SAT 96–99
[2025-07-02] MEDS: metroNIDAZOLE 500 MG/ISO 100ML 500 MG/100 ML BAG 100 MG IVPB ×3 (06:45→21:23)
--- NOTE | 2025-07-02 07:42 | P.PNIM_ITS ---
Progress Note: A&P Assessment and Plan (1) Pneumonia: Qualifiers: Laterality: right Lung location: lower lobe of lung Pneumonia type: due to unspecified organism Qualified Code(s): J18.9 - Pneumonia, unspecified organism Code(s): J18.9 - Pneumonia, unspecified organism Status: Acute Assessment and Plan: 2 L home O2 at night Evaluated 06/29 in found to have pneumonia. Discharged home on Augmentin and Doxycycline. CXR showed probably bibasilar infiltrates which could be associated pneumonia or aspiration. CT of the abdomen/pelvis yesterday showed ground-glass opacities in the right middle and lower lobes consistent with pneumonia. - supportive care: Mucinex, Tessalon Perles, Tylenol, DuoNebs - speech to evaluate pending - monitor O2 saturations Modified barium swallow past now on diabetic diet Doxy and Rocephin (2) Diverticulitis of descending colon: Code(s): K57.32 - Diverticulitis of large intestine without perforation or abscess without bleeding Status: Acute Assessment and Plan: Improving - CT abd/pelvis, 06/29: uncomplicated diverticulitis at the junction of the descending and sigmoid colon. - started on Ceftriaxone and Metronidazole on 06/30 - IV fluids: 1L bolus, now on 75 mL/hr x1L DC Diabetic r diet - pain medication prn - daily clinical reassessment for improvement Senna (3) Lactic acidosis: Code(s): E87.20 - Acidosis, unspecified Status: Acute Assessment and Plan: Patient found to have pneumonia and acute uncomplicated diverticulitis. on ceftriaxone, doxy, Flagyl. 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 - hypoglycemia protocol - POC blood glucose a.c. HS SSI - Hold home Seanuvromulo. - A1C 7.8% on 02/18/2025 Lantus added (5) Hypertension: Qualifiers: Hypertension type: primary hypertension Qualified Code(s): I10 - Essential (primary) hypertension Code(s): I10 - Essential (primary) hypertension Status: Chronic Assessment and Plan: - chronic, currently 124/79, stable - continue home medications: Coreg 25 mg b.i.d. - monitor (6) Chronic kidney disease, stage 3: Qualifiers: Chronic kidney disease stage 3 subtype: stage 3a (GFR 45-59) Qualified Code(s): N18.31 - Chronic kidney disease, stage 3a Code(s): N18.30 - Chronic kidney disease, stage 3 unspecified Status: Chronic Assessment and Plan: Creatinine 1.04, BUN 18, and GFR 51 upon admission on 06/30. At baseline. - trend renal function - monitor electrolytes, correct as needed (7) Congestive heart failure: Qualifiers: Heart failure chronicity: chronic Heart failure type: unspecified Qualified Code(s): I50.9 - Heart failure, unspecified Code(s): I50.9 - Heart failure, unspecified Status: Chronic Assessment and Plan: previous echo, June of 2024. LV systolic function was normal with an estimated EF of 55-60%. RV size mildly dilated with normal systolic function. - received 1 L bolus, started on 75 mL/hour x1 L. DC Monitor for fluid overload - continue Lasix 20 mg daily (8) Iron deficiency anemia: Qualifiers: Iron deficiency anemia type: unspecified iron deficiency Qualified Code(s): D50.9 - Iron deficiency anemia, unspecified Code(s): D50.9 - Iron deficiency anemia, unspecified Status: Chronic Assessment and Plan: History of iron deficiency anemia. Hemoglobin 11.7 on upon admission on 06/30. Stable. No signs of bleeding - transfuse if <7 - monitor (9) Chronic respiratory failure with hypoxia, on home oxygen therapy: Code(s): J96.11 - Chronic respiratory failure with hypoxia; Z99.81 - Dependence on supple mental oxygen Status: Acute Assessment and Plan: Requires 2L at night chronically, continue. (10) Confusion: Code(s): R41.0 - Disorientation, unspecified Status: Acute Assessment and Plan: Patient called 911 several times after she was woken up by laboratory she thought this was breaking into her house Daughter is requested we limit testing trend midnight, and sleep hygiene Zyprexa at night Patient slept much better last night did not have any issues with hallucinations. Plan PT OT evaluate and treat activity as tolerated with assistance Diet: Diabetic diet GI Prophylaxis: n/a DVT Prophylaxis: Lovenox Lines/Tubes: Peripheral IV Code Status: Full code Time Spent With Patient Time with patient: Greater than 35 minutes Subjective Date/time seen: 07/02/25 07:42 Interval history: 79 y/o F with PMH of DM2, asthma/COPD, HLD, HTN, GERD, HFpEF, stroke, coronary artery disease, anemia, anxiety/depression, ID, and gastric ulcer presents here with general decline. Per nursing the patient was woken up by a.m. labs thinking they were intruder in her how she called 911 several times in the police showed up. Daughter is requesting that we limit interruption at night due to history of sundowning Patient was started on diabetic diet last night Blood cultures pending, on Flagyl, cefepime and doxy Lunchtime blood sugar 3 her 24 will add Lantus Review of Systems Review of Systems: 12 systems were reviewed and are negativ e except for as per HPI. Exam Narrative: General: well appearing, appears stated age. HEENT: normocephalic, atraumatic. Mucous membranes moist. EOMI, PERRLA, bilateral sclera anicteric, no conjunctival injection. Neck supple without JVD, lymphadenopathy, or bruit. Respiratory: clear bilaterally. No rales/rhonic/wheezes. Cardiovascular: Regular rate and rhythm, normal S1-S2. No murmurs, rubs, or clicks. PMI is nondisplaced, capillary refill less than 3 second. Abdomen: Soft, round, no pulsatile masses, nondistended and nontender. No rebound, no guarding. Bowel sounds present to all four quadrants. No high pitch or tinkling sounds, resonant to percussion. Extremities: No cyanosis, clubbing, or edema present. Pulses are palpable 2/2. Active ROM to all four extremities. Neuro: Alert and orientated x 3. PERRLA. Cranial nerves 2-12 intact without focal deficit. Skin: Warm, dry, and intact, without rash, erythema, or lesion. Psych: pleasant, cooperative, normal speech, normal affect, no hallucinations, no dysarthia Objective Data Vital Signs Vital Signs: Vital Signs - 24 hr 07/01/25 08:00 07/01/25 10:49 07/01/25 12:47 Temperature Pulse Rate 78 Respiratory Rate Blood Pressure Pulse Oximetry 99 Oxygen Delivery Room Air Nasal Cannula Oxygen Flow Rate 2 07/01/25 14:00 07/01/25 20:00 07/01/25 20:59 Temperature 97.4 F L Pulse Rate 76 70 Respiratory Rate 18 Blood Pressure 134/62 Pulse Oximetry 96 96 Oxygen Delivery Nasal Cannula Oxygen Flow Rate 2 07/01/25 21:35 Temperature 97.5 F L Pulse Rate 69 Respiratory Rate 16 Blood Pressure 133/53 L Pulse Oximetry 96 Oxygen Delivery Oxygen Flow Rate Intake/Output Intake/Output: Intake & Output 06/29/25 06/30/25 07/01/25 07/02/25 23:59 23:59 23:59 23:59 Intake Total 1350 1320 200 Output Total 700 800 Balance 1350 620 -600 Meds/Results Medications: Active Medications Generic Name Dose Route Start Last Admin Trade Name Freq PRN Reason Stop Dose Admin Acetaminophen 650 mg 06/30/25 17:56 07/01/25 14:53 Acetaminophen 325 Mg Tablet PO 650 mg Q6H PRN Administration Mild Pain (1-3) or Fever Hydrocodone Bitart/Acetaminophen 1 tab 06/30/25 17:56 Hydrocodone/Acetaminophen (*Crx) 5-325 Mg Tablet PO Q6H PRN Pain Rated 4-6 Albuterol/Ipratropium 3 ml 06/30/25 17:56 Ipratropium 0.5 Mg/Albuterol Sulfate 2.5 Mg (Base) Ampul.Neb 3 Ml INHALATION Q6HRT PRN Shortness Of Breath Or Wheezing Alprazolam 1.5 mg 06/30/25 21:00 07/01/25 21:00 Alprazolam (*Crx) 0.5 Mg Tablet PO 1.5 mg HS SADI Administration Alprazolam 1 mg 07/01/25 09:00 07/01/25 17:27 Alprazolam (*Crx) 0.5 Mg Tablet BY MOUTH 1 mg TID SADI Administration Artificial Tears 1 drop 06/30/25 21:10 Artificial Tears Ophth Soln 15 Ml Bottle EACH EYE QID PRN Dry Eye(s) Aspirin 81 mg 07/01/25 09:00 07/01/25 12:47 Aspirin 81 Mg Enteric Tablet PO 81 mg DAILY SADI Administration Atorvastatin Calcium 20 mg 07/01/25 21:00 07/01/25 21:01 Atorvastatin 20 Mg Tablet PO 20 mg HS SADI Administration Benzonatate 100 mg 06/30/25 17:56 Benzonatate 100 Mg Capsule PO TID PRN Cough Buspirone HCl 20 mg 07/01/25 09:00 07/01/25 17:27 Buspirone Hcl 10 Mg Tablet PO 20 mg TID SADI Administration Calcium Carbonate 200 mg 06/30/25 21:10 Calcium Carbonate (Tums) 500 Mg (200 Mg Elemental) PO Q6H PRN Indigestion Carvedilol 25 mg 07/01/25 09:00 07/01/25 20:59 Carvedilol 25 Mg Tablet PO 25 mg Q12HR SADI Administration Dextrose 12.5 gm 06/30/25 18:01 Dextrose 50% 25 Gm/50 Ml Syringe IV PUSH PRN PRN Hypoglycemia Protocol Dicyclomine HCl 20 mg 06/30/25 17:56 Dicyclomine Hcl 10 Mg Capsule PO QID PRN Abdominal Cramping Donepezil HCl 10 mg 06/30/25 21:10 07/01/25 21:01 Donepezil Hcl 10 Mg Tablet PO 10 mg HS SADI Administration Enoxaparin Sodium 40 mg 07/01/25 09:00 07/01/25 12:49 Enoxaparin 40 Mg/0.4 Ml Syringe SUB-Q 40 mg DAILY SADI Administration Ergocalciferol 1,250 mcg 07/07/25 09:00 Ergocalciferol (Vitamin D2) 1,250 Mcg (50,000 Units) Capsule PO WEEKLY SADI Ferrous Sulfate 325 mg 07/01/25 09:00 07/01/25 12:49 Ferrous Sulfate 325 Mg Tablet BY MOUTH 325 mg DAILY SADI Administration Fluticasone Propionate 1 spray 07/01/25 09:00 07/01/25 21:01 Fluticasone Propionate 0.05% Na Spr 16 Gm Btl (*Bkc) NASAL 1 spray Q12HR SADI Administration Fluticasone/Umeclidinium/Vilanterol 1 puff 07/01/25 08:00 07/01/25 10:48 Fluticasone/Umeclidin/Vilanter 100-62.5-25 Mcg Ellipta INHALATION 1 puff DAILYRT SADI Administration Furosemide 20 mg 07/01/25 09:00 07/01/25 12:46 Furosemide 20 Mg Tablet PO 20 mg QAM SADI Administration Gabapentin 300 mg 07/01/25 09:00 07/01/25 17:26 Gabapentin 300 Mg Capsule PO 300 mg TID SADI Administration Glucagon 1 mg 06/30/25 18:01 Glucagon For Inj 1 Mg Vial IM PRN PRN Hypoglycemia Protocol Glucose 15 gm 06/30/25 18:01 Glucose Oral Gel 15 Gm Of Glucse In 37.5 Gm Tube PO PRN PRN Hypoglycemia Protocol Guaifenesin 600 mg 06/30/25 21:00 07/01/25 21:01 Guaifenesin 12 Hr 600 Mg Tabcr PO 600 mg Q12HR SADI Administration Metronidazole 500 mg in 100 mls @ 100 mls/hr 07/01/25 06:00 07/02/25 06:45 Flagyl 500 Mg/Iso Soln 100 Ml IVPB 100 mls/hr Q8HR SADI Administration Dextrose 1,000 mls @ 100 mls/hr 06/30/25 18:01 Dextrose 5% 1,000 Ml IVPB PRN PRN Hypoglycemia Protocol Insulin Aspart 4 - 8 units 07/01/25 21:00 07/01/25 21:50 Insulin Aspart (*Bkc) 100 Units/Ml SUB-Q 6 units 0800,1400,1700,2100 SADI Administration Protocol Methocarbamol 750 mg 06/30/25 21:10 Methocarbamol 750 Mg Tablet PO TID PRN MUSCLE SPASMS Miscellaneous Information 0 each 06/30/25 00:01 Gemtesa Nonform Can Pt Bring From Home? XX 07/30/25 00:00 CLARIFY SADI Montelukast Sodium 10 mg 07/01/25 21:00 07/01/25 21:00 Montelukast Sodium 10 Mg Tablet PO 10 mg HS SADI Administration Multivitamins/Minerals 1 tab 07/01/25 09:00 07/01/25 12:49 Multivitamins /C Lutein (Centrum Silver) Tablet *Bkc PO 1 tab QAM SADI Administration Non-Formulary Medication 75 mg 07/01/25 09:00 Vibegron [Gemtesa] PO 07/31/25 08:59 DAILY SADI Pantoprazole Sodium 40 mg 07/01/25 09:00 07/01/25 12:46 Pantoprazole 40 Mg Tablet PO 40 mg DAILY SADI Administration Paroxetine HCl 20 mg 07/01/25 09:00 07/01/25 12:46 Paroxetine 20 Mg Tablet PO 20 mg DAILY SADI Administration Paroxetine HCl 40 mg 07/01/25 09:00 07/01/25 12:46 Paroxetine 20 Mg Tablet PO 40 mg DAILY SADI Administration Polyethylene Glycol 17 gm 06/30/25 21:10 Polyethylene Glycol 3350 17 Gm Powd.Pack PO BID PRN Constipation Tramadol HCl 50 mg 06/30/25 21:10 Tramadol Hcl (*Crx) 50 Mg Tablet PO Q6H PRN Pain (Scale Score 4-6) Vitamin B Complex 1 cap 07/01/25 09:00 07/01/25 12:47 Vitamin B Complex Capsule PO 1 cap DAILY SADI Administration Radiology Results: ITS Impressions Chest X-Ray 06/30/25 13:17 IMPRESSION: 1. Probably bibasilar infiltrates which could be associated pneumonia or aspiration. Modified Barium Swallow 07/01/25 14:15 IMPRESSION: No aspiration observed. See speech therapist's note for complete evaluation. Labs Labs: Laboratory Results - last 24 hr 07/01/25 07/01/25 07/01/25 12:02 18:12 21:30 POC Capillary Glucose 227 H 431 H 305 H 07/02/25 07:24 POC Capillary Glucose 252 H Quality VTE Prophylaxis VTE prophylaxis: pharmacologic ordered
[2025-07-02 08:53] LABS: Hematocrit 35.6 % (37.0-47.0); Hemoglobin 11.8 g/dL (12.0-15.0); Mean Corpuscular HGB Conc 33.1 g/dl (32-36); Mean Corpuscular Hemoglobin 30.3 pg (26-34); Mean Corpuscular Volume 91.3 fl (80-100); Platelet Count Result 186 k/mm3 (150-375); Red Blood Count 3.90 M/mm3 (4.2-5.4); White Blood Count 9.4 K/mm3 (4.5-10.0)
[2025-07-02] MEDS: guaiFENesin 12 HR 600 MG TABCR PO ×2 (08:54→21:21)
[2025-07-02] MEDS: MULTIVITAMINS /C LUTEIN (CENTRUM SILVER) TABLET *BKC 1 TAB PO (08:54)
[2025-07-02] MEDS: FERROUS SULFATE 325 MG TABLET BY MOUTH (08:55)
[2025-07-02] MEDS: VITAMIN B COMPLEX CAPSULE 1 CAP PO (08:55)
[2025-07-02] MEDS: ALPRAZolam (*CRX) 0.5 MG TABLET 1 MG BY MOUTH ×3 (08:55→17:34)
[2025-07-02] MEDS: FUROSEMIDE 20 MG TABLET PO (08:56)
[2025-07-02] MEDS: ASPIRIN 81 MG ENTERIC TABLET PO (08:57)
[2025-07-02] MEDS: GABAPENTIN 300 MG CAPSULE PO ×3 (08:57→17:34)
[2025-07-02] MEDS: PANTOPRAZOLE 40 MG TABLET PO (08:57)
[2025-07-02] MEDS: ENOXAPARIN 40 MG/0.4 ML SYRINGE SUB-Q (08:58)
[2025-07-02] MEDS: cefTRIAXone 1 GM in SODIUM CHLORIDE 0.9% IV 50 ML 100 ML IVPB (08:59)
[2025-07-02] MEDS: INSULIN ASPART (*BKC) 100 UNITS/ML SUB-Q ×4 (09:03→21:38)
[2025-07-02] MEDS: FLUTICASONE PROPIONATE 0.05% NA SPR 16 GM BTL (*BKC) 1 SPRAY NASAL ×2 (09:04→21:25)
[2025-07-02] MEDS: FLUTICASONE/UMECLIDIN/VILANTER 100-62.5-25 MCG ELLIPTA 1 PUFF INHALATION (09:16)
[2025-07-02] MEDS: IPRATROPIUM 0.5 MG/ALBUTEROL SULFATE 2.5 MG (BASE) AMPUL.NEB 3 ML INHALATION ×2 (09:16→14:50)
[2025-07-02 09:17] LABS: Anion Gap 4 mmol/L (4-12); Blood Urea Nitrogen 11 mg/dL (7-17); Calcium 8.7 mg/dL (8.4-10.2); Carbon Dioxide 30 mmol/L (22-30); Chloride 102 mmol/L (98-107); Estimated CRCL calculation 48 ml/min; Estimated Glomerular Filt Rate > 60; Glucose 259 mg/dL (65-110); Potassium 3.6 mmol/L (3.4-5.0); Sodium 136 mmol/L (137-145)
[2025-07-02] MEDS: DOXYCYCLINE IV 100 MG in SODIUM CHLORIDE 0.9% IV 100 ML IVPB ×2 (09:29→21:00)
[2025-07-02] MEDS: ALPRAZolam (*CRX) 0.5 MG TABLET 1.5 MG PO (21:19)
[2025-07-02] MEDS: ATORVASTATIN 20 MG TABLET PO (21:20)
[2025-07-02] MEDS: DONEPEZIL HCL 10 MG TABLET PO (21:21)
[2025-07-02] MEDS: SENNOSIDES 8.6 MG TABLET PO (21:22)
[2025-07-02] MEDS: INSULIN GLARGINE (*BKC) 100 UNITS/ML 10 UNITS SUB-Q (21:38)
[2025-07-02] MEDS: MONTELUKAST SODIUM 10 MG TABLET PO (21:39)
[2025-07-03] MEDS: metroNIDAZOLE 500 MG/ISO 100ML 500 MG/100 ML BAG 100 MG IVPB ×3 (06:26→21:10)
--- NOTE | 2025-07-03 07:36 | P.PNIM_ITS ---
Progress Note: A&P Assessment and Plan (1) Pneumonia: Qualifiers: Laterality: right Lung location: lower lobe of lung Pneumonia type: due to unspecified organism Qualified Code(s): J18.9 - Pneumonia, unspecified organism Code(s): J18.9 - Pneumonia, unspecified organism Status: Acute Assessment and Plan: 2 L home O2 at night Evaluated 06/29 in found to have pneumonia. Discharged home on Augmentin and Doxycycline. CXR showed probably bibasilar infiltrates which could be associated pneumonia or aspiration. CT of the abdomen/pelvis yesterday showed ground-glass opacities in the right middle and lower lobes consistent with pneumonia. - supportive care: Mucinex, Tessalon Perles, Tylenol, DuoNebs - speech to evaluate pending - monitor O2 saturations Modified barium swallow past now on diabetic diet Doxy and Rocephin AM labs L (2) Diverticulitis of descending colon: Code(s): K57.32 - Diverticulitis of large intestine without perforation or abscess without bleeding Status: Acute Assessment and Plan: Improving - CT abd/pelvis, 06/29: uncomplicated diverticulitis at the junction of the descending and sigmoid colon. - started on Ceftriaxone and Metronidazole on 06/30 - IV fluids: 1L bolus, now on 75 mL/hr x1L DC Diabetic r diet - pain medication prn - daily clinical reassessment for improvement -senna, add miralax daily scheduled -nursing reported BRBPR today when patient had a bowel movement with prolapse noted. Patient reports this happens at home also. General surgery will be consulted. (3) Lactic acidosis: Code(s): E87.20 - Acidosis, unspecified Status: Acute Assessment and Plan: Patient found to have pneumonia and acute uncomplicated diverticulitis. on ceftriaxone, doxy, Flagyl. - blood cultures obtained on 06/30, pending - monitor hemodynamic stability - no current leukocytosis, monitor (4) Insulin dependent type 2 diabetes mellitus: Code(s): E11.9 - Type 2 diabetes mellitus without complications; Z79.4 - correction (current) use of insulin Status: Chronic Assessment and Plan: Arrived to the emergency department on 06/30 hyperglycemic with a glucose of 569, No anion gap. - hypoglycemia protocol - POC blood glucose a.c. HS SSI - Hold home [place]. - A1C 7.8% on 02/18/2025 Lantus added (5) Hypertension: Qualifiers: Hypertension type: primary hypertension Qualified Code(s): I10 - Essential (primary) hypertension Code(s): I10 - Essential (primary) hypertension Status: Chronic Assessment and Plan: - continue home medications: Coreg 25 mg b.i.d. - monitor (6) Chronic kidney disease, stage 3: Qualifiers: Chronic kidney disease stage 3 subtype: stage 3a (GFR 45-59) Qualified Code(s): N18.31 - Chronic kidney disease, stage 3a Code(s): N18.30 - Chronic kidney disease, stage 3 unspecified Status: Chronic Assessment and Plan: Creatinine 1.04, BUN 18, and GFR 51 upon admission on 06/30. At baseline. - trend renal function - monitor electrolytes, correct as needed -AM labs (7) Congestive heart failure: Qualifiers: Heart failure chronicity: chronic Heart failure type: unspecified Qualified Code(s): I50.9 - Heart failure, unspecified Code(s): I50.9 - Heart failure, unspecified Status: Chronic Assessment and Plan: previous echo, June of 2024. LV systolic function was normal with an estimated EF of 55-60%. RV size mildly dilated with normal systolic function. - received 1 L bolus, started on 75 mL/hour x1 L. DC Monitor for fluid overload - continue Lasix 20 mg daily (8) Iron deficiency anemia: Qualifiers: Iron deficiency anemia type: unspecified iron deficiency Qualified Code(s): D50.9 - Iron deficiency anemia, unspecified Code(s): D50.9 - Iron deficiency anemia, unspecified Status: Chronic Assessment and Plan: History of iron deficiency anemia. Hemoglobin 11.7 on upon admission on 06/30. Stable. No signs of bleeding - transfuse if <7 - monitor (9) Chronic respiratory failure with hypoxia, on home oxygen therapy: Code(s): J96.11 - Chronic respiratory failure with hypoxia; Z99.81 - Dependence on supplemental oxygen Status: Acute Assessment and Plan: Requires 2L at night chronically, continue. (10) Confusion: Code(s): R41.0 - Disorientation, unspecified Status: Acute Assessment and Plan: Patient called 911 several times after she was woken up by laboratory she thought this was breaking into her house Daughter is requested we limit testing trend midnight, and sleep hygiene Zyprexa at night Patient slept much better last night did not have any issues with hallucinations. Plan PT OT evaluate and treat activity as tolerated with assistance Diet: Diabetic diet GI Prophylaxis: n/a DVT Prophylaxis: Lovenox Lines/Tubes: Peripheral IV Code Status: Full code Subjective Date/time seen: 07/03/25 07:36 Interval history: Patient seen for a follow up visit. Patient lying in bed, in no acute distress. Patient denies acute pain. PT/OT recommending patient go to rehab on discharge. Care coordination following. Patient continues on IV cefepime, doxycycline and flagyl. Blood cultures are pending. Nursing reported patient had a small amount of bright red blood per rectum after a bowel movement and there appears to be some prolapse present. Patient reports this has been happening at home as well. Will place general surgery consult. Review of Systems Review of Systems: All systems reviewed & are unremarkable except as noted in HPI and below Exam Narrative: General: well appearing, appears stated age. HEENT: normocephalic, atraumatic. Mucous membranes moist. EOMI, PERRLA, bilateral sclera anicteric, no conjunctival injection. Neck supple Respiratory: clear bilaterally. No rales/rhonic/wheezes. Cardiovascular: Regular rate and rhythm, normal S1-S2. No murmurs, rubs, or clicks. Abdomen: Soft, round, no pulsatile masses, nondistended and nontender. No rebound, no guarding. Bowel sounds present to all four quadrants Extremities: No cyanosis, clubbing, or edema present.Active ROM to all four extremities. Neuro: Alert and orientated x 2 Skin: Warm, dry, and intact, without rash Psych: pleasant, cooperative, normal speech, normal affect, no hallucinations, no dysarthia Objective Data Vital Signs Vital Signs: Vital Signs - 24 hr 07/02/25 08:55 07/02/25 08:56 07/02/25 09:18 Temperature Pulse Rate 84 78 Respiratory Rate 18 Blood Pressure Pulse Oximetry Oxygen Delivery Room Air Oxygen Flow Rate 07/02/25 09:28 07/02/25 09:28 07/02/25 13:19 Temperature 97.4 F L Pulse Rate 80 78 68 Respiratory Rate 16 16 Blood Pressure 158/76 H Pulse Oximetry 99 98 Oxygen Delivery Nasal Cannula Oxygen Flow Rate 2 07/02/25 14:50 07/02/25 15:00 07/02/25 15:13 Temperature Pulse Rate Respiratory Rate 18 18 Blood Pressure Pulse Oximetry Oxygen Delivery Room Air Oxygen Flow Rate 07/02/25 20:00 07/02/25 20:01 07/02/25 21:26 Temperature 97.9 F Pulse Rate 72 72 72 Respiratory Rate 24 H 24 H Blood Pressure 155/60 H Pulse Oximetry 96 96 Oxygen Delivery Room Air Oxygen Flow Rate Intake/Output Intake/Output: Intake & Output 06/30/25 07/01/25 07/02/25 07/03/25 23:59 23:59 23:59 23:59 Intake Total 1350 1320 1760 Output Total 700 1400 Balance 1350 620 360 Meds/Results Medications: Active Medications Generic Name Dose Route Start Last Admin Trade Name Freq PRN Reason Stop Dose Admin Acetaminophen 650 mg 06/30/25 17:56 07/01/25 14:53 Acetaminophen 325 Mg Tablet PO 650 mg Q6H PRN Administration Mild Pain (1-3) or Fever Hydrocodone Bitart/Acetaminophen 1 tab 06/30/25 17:56 Hydrocodone/Acetaminophen (*Crx) 5-325 Mg Tablet PO Q6H PRN Pain Rated 4-6 Albuterol/Ipratropium 3 ml 06/30/25 17:56 07/02/25 14:50 Ipratropium 0.5 Mg/Albuterol Sulfate 2.5 Mg (Base) Ampul.Neb 3 Ml INHALATION 3 ml Q6HRT PRN Administration Shortness Of Breath Or Wheezing Alprazolam 1.5 mg 06/30/25 21:00 07/02/25 21:19 Alprazolam (*Crx) 0.5 Mg Tablet PO 1.5 mg HS SADI Administration Alprazolam 1 mg 07/01/25 09:00 07/02/25 17:34 Alprazolam (*Crx) 0.5 Mg Tablet BY MOUTH 1 mg TID SADI Administration Artificial Tears 1 drop 06/30/25 21:10 Artificial Tears Ophth Soln 15 Ml Bottle EACH EYE QID PRN Dry Eye(s) Aspirin 81 mg 07/01/25 09:00 07/02/25 08:57 Aspirin 81 Mg Enteric Tablet PO 81 mg DAILY SADI Administration Atorvastatin Calcium 20 mg 07/01/25 21:00 07/02/25 21:20 Atorvastatin 20 Mg Tablet PO 20 mg HS SADI Administration Benzonatate 100 mg 06/30/25 17:56 Benzonatate 100 Mg Capsule PO TID PRN Cough Buspirone HCl 20 mg 07/01/25 09:00 07/02/25 17:35 Buspirone Hcl 10 Mg Tablet PO 20 mg TID SADI Administration Calcium Carbonate 200 mg 06/30/25 21:10 Calcium Carbonate (Tums) 500 Mg (200 Mg Elemental) PO Q6H PRN Indigestion Carvedilol 25 mg 07/01/25 09:00 07/02/25 21:26 Carvedilol 25 Mg Tablet PO 25 mg Q12HR SADI Administration Dextrose 12.5 gm 06/30/25 18:01 Dextrose 50% 25 Gm/50 Ml Syringe IV PUSH PRN PRN Hypoglycemia Protocol Dicyclomine HCl 20 mg 06/30/25 17:56 Dicyclomine Hcl 10 Mg Capsule PO QID PRN Abdominal Cramping Donepezil HCl 10 mg 06/30/25 21:10 07/02/25 21:21 Donepezil Hcl 10 Mg Tablet PO 10 mg HS SADI Administration Enoxaparin Sodium 40 mg 07/01/25 09:00 07/02/25 08:58 Enoxaparin 40 Mg/0.4 Ml Syringe SUB-Q 40 mg DAILY SADI Administration Ergocalciferol 1,250 mcg 07/07/25 09:00 Ergocalciferol (Vitamin D2) 1,250 Mcg (50,000 Units) Capsule PO WEEKLY SADI Ferrous Sulfate 325 mg 07/01/25 09:00 07/02/25 08:55 Ferrous Sulfate 325 Mg Tablet BY MOUTH 325 mg DAILY SADI Administration Fluticasone Propionate 1 spray 07/01/25 09:00 07/02/25 21:25 Fluticasone Propionate 0.05% Na Spr 16 Gm Btl (*Bkc) NASAL 1 spray Q12HR SADI Administration Fluticasone/Umeclidinium/Vilanterol 1 puff 07/01/25 08:00 07/02/25 09:16 Fluticasone/Umeclidin/Vilanter 100-62.5-25 Mcg Ellipta INHALATION 1 puff DAILYRT SADI Administration Furosemide 20 mg 07/01/25 09:00 07/02/25 08:56 Furosemide 20 Mg Tablet PO 20 mg QAM SADI Administration Gabapentin 300 mg 07/01/25 09:00 07/02/25 17:34 Gabapentin 300 Mg Capsule PO 300 mg TID SADI Administration Glucagon 1 mg 06/30/25 18:01 Glucagon For Inj 1 Mg Vial IM PRN PRN Hypoglycemia Protocol Glucose 15 gm 06/30/25 18:01 Glucose Oral Gel 15 Gm Of Glucse In 37.5 Gm Tube PO PRN PRN Hypoglycemia Protocol Guaifenesin 600 mg 06/30/25 21:00 07/02/25 21:21 Guaifenesin 12 Hr 600 Mg Tabcr PO 600 mg Q12HR SADI Administration Metronidazole 500 mg in 100 mls @ 100 mls/hr 07/01/25 06:00 07/03/25 06:26 Flagyl 500 Mg/Iso Soln 100 Ml IVPB 100 mls/hr Q8HR SADI Administration Dextrose 1,000 mls @ 100 mls/hr 06/30/25 18:01 Dextrose 5% 1,000 Ml IVPB PRN PRN Hypoglycemia Protocol Ceftriaxone Sodium 1 gm/ 50 mls @ 100 mls/hr 07/02/25 09:00 07/02/25 09:29 Sodium Chloride IVPB Infused Q24H SADI Infusion Doxycycline Hyclate 100 mg/ 100 mls @ 100 mls/hr 07/02/25 09:00 07/02/25 22:00 Sodium Chloride IVPB Infused Q12H SADI Infusion Insulin Aspart 4 - 8 units 07/02/25 12:00 07/02/25 21:38 Insulin Aspart (*Bkc) 100 Units/Ml SUB-Q 6 units 0800,1200,1700,2100 SADI Administration Protocol Insulin Glargine 10 units 07/02/25 21:00 07/02/25 21:38 Insulin Glargine (*Bkc) 100 Units/Ml SUB-Q 10 units HS SADI Administration Methocarbamol 750 mg 06/30/25 21:10 Methocarbamol 750 Mg Tablet PO TID PRN MUSCLE SPASMS Miscellaneous Information 0 each 06/30/25 00:01 Gemtesa Nonform Can Pt Bring From Home? XX 07/30/25 00:00 CLARIFY SADI Montelukast Sodium 10 mg 07/01/25 21:00 07/02/25 21:39 Montelukast Sodium 10 Mg Tablet PO 10 mg HS SADI Administration Multivitamins/Minerals 1 tab 07/01/25 09:00 07/02/25 08:54 Multivitamins /C Lutein (Centrum Silver) Tablet *Bkc PO 1 tab QAM SADI Administration Non-Formulary Medication 75 mg 07/01/25 09:00 Vibegron [Gemtesa] PO 07/31/25 08:59 DAILY SADI Pantoprazole Sodium 40 mg 07/01/25 09:00 07/02/25 08:57 Pantoprazole 40 Mg Tablet PO 40 mg DAILY SADI Administration Paroxetine HCl 20 mg 07/01/25 09:00 07/02/25 08:55 Paroxetine 20 Mg Tablet PO 20 mg DAILY SADI Administration Paroxetine HCl 40 mg 07/01/25 09:00 07/02/25 08:57 Paroxetine 20 Mg Tablet PO 40 mg DAILY SADI Administration Polyethylene Glycol 17 gm 06/30/25 21:10 Polyethylene Glycol 3350 17 Gm Powd.Pack PO BID PRN Constipation Senna 8.6 mg 07/02/25 21:00 07/02/25 21:22 Sennosides 8.6 Mg Tablet PO 8.6 mg HS SADI Administration Tramadol HCl 50 mg 06/30/25 21:10 Tramadol Hcl (*Crx) 50 Mg Tablet PO Q6H PRN Pain (Scale Score 4-6) Vitamin B Complex 1 cap 07/01/25 09:00 07/02/25 08:55 Vitamin B Complex Capsule PO 1 cap DAILY SADI Administration Radiology Results: ITS Impressions Chest X-Ray 06/30/25 13:17 IMPRESSION: 1. Probably bibasilar infiltrates which could be associated pneumonia or aspiration. Modified Barium Swallow 07/01/25 14:15 IMPRESSION: No aspiration observed. See speech therapist's note for complete evaluation. Labs Labs: Laboratory Results - last 24 hr 07/02/25 07/02/25 07/02/25 08:42 11:29 16:43 WBC 9.4 RBC 3.90 L Hgb 11.8 L Hct 35.6 L MCV 91.3 MCH 30.3 MCHC 33.1 RDW 13.3 Plt Count 186 MPV 11.4 H Sodium 136 L Potassium 3.6 Chloride 102 Carbon Dioxide 30 Anion Gap 4 BUN 11 Creatinine 0.88 Estim Creat Clear Calc 48 Estimated GFR > 60 Glucose 259 H POC Capillary Glucose 324 H 326 H Calcium 8.7 07/02/25 19:55 WBC RBC Hgb Hct MCV MCH MCHC RDW Plt Count MPV Sodium Potassium Chloride Carbon Dioxide Anion Gap BUN Creatinine Estim Creat Clear Calc Estimated GFR Glucose POC Capillary Glucose 315 H Calcium Quality VTE Prophylaxis VTE prophylaxis: pharmacologic ordered
[2025-07-03] MEDS: INSULIN ASPART (*BKC) 100 UNITS/ML SUB-Q ×4 (08:21→22:24)
[2025-07-03] MEDS: ALPRAZolam (*CRX) 0.5 MG TABLET 1 MG BY MOUTH ×2 (08:28→12:32)
[2025-07-03 08:29] VITALS: PULSE 75
[2025-07-03] MEDS: cefTRIAXone 1 GM in SODIUM CHLORIDE 0.9% IV 50 ML 100 ML IVPB (08:29)
[2025-07-03] MEDS: ASPIRIN 81 MG ENTERIC TABLET PO (08:29)
[2025-07-03] MEDS: FERROUS SULFATE 325 MG TABLET BY MOUTH (08:30)
[2025-07-03] MEDS: ENOXAPARIN 40 MG/0.4 ML SYRINGE SUB-Q (08:30)
[2025-07-03] MEDS: guaiFENesin 12 HR 600 MG TABCR PO ×2 (08:31→20:17)
[2025-07-03] MEDS: FUROSEMIDE 20 MG TABLET PO (08:31)
[2025-07-03] MEDS: PANTOPRAZOLE 40 MG TABLET PO (08:31)
[2025-07-03] MEDS: FLUTICASONE PROPIONATE 0.05% NA SPR 16 GM BTL (*BKC) 1 SPRAY NASAL ×2 (08:31→20:20)
[2025-07-03] MEDS: MULTIVITAMINS /C LUTEIN (CENTRUM SILVER) TABLET *BKC 1 TAB PO (08:31)
[2025-07-03] MEDS: GABAPENTIN 300 MG CAPSULE PO ×3 (08:31→17:15)
[2025-07-03] MEDS: VITAMIN B COMPLEX CAPSULE 1 CAP PO (08:32)
[2025-07-03] MEDS: FLUTICASONE/UMECLIDIN/VILANTER 100-62.5-25 MCG ELLIPTA 1 PUFF INHALATION (08:48)
[2025-07-03 08:49] VITALS: PULSE 72; RESP 20; O2SAT 92
[2025-07-03] MEDS: DOXYCYCLINE IV 100 MG in SODIUM CHLORIDE 0.9% IV 100 ML IVPB ×2 (10:26→20:11)
--- NOTE | 2025-07-03 13:50 | PCRCNOTE ---
Therapist called to give patient a PRN treatment , upon arrival patient is sleeping and has sign outside door to Do not wake patient . No treatment was given at this time.
[2025-07-03 14:00] VITALS: BP 133/59; PULSE 74; RESP 19; TEMP 36.6; O2SAT 93
--- NOTE | 2025-07-03 14:38 | PCOTNOTE ---
Attempted OT evaluation. Pt. was sleeping and family requested to not wake pt. up. Will continue to follow as able.
[2025-07-03 20:00] VITALS: PULSE 75; RESP 19; O2SAT 93
[2025-07-03] MEDS: DONEPEZIL HCL 10 MG TABLET PO (20:16)
[2025-07-03] MEDS: ATORVASTATIN 20 MG TABLET PO (20:16)
[2025-07-03] MEDS: ALPRAZolam (*CRX) 0.5 MG TABLET 1.5 MG PO (20:16)
[2025-07-03] MEDS: MONTELUKAST SODIUM 10 MG TABLET PO (20:17)
[2025-07-03] MEDS: SENNOSIDES 8.6 MG TABLET PO (20:17)
[2025-07-03 20:18] VITALS: PULSE 75
[2025-07-03] MEDS: ACETAMINOPHEN 325 MG TABLET 650 MG PO (20:36)
[2025-07-03 21:03] VITALS: BP 156/69; PULSE 74; RESP 18; TEMP 36.6; O2SAT 90
[2025-07-03] MEDS: INSULIN GLARGINE (*BKC) 100 UNITS/ML 10 UNITS SUB-Q (22:24)
[2025-07-04] VITALS (7 sets, daily range): BP systolic 130–166; BP diastolic 60–77; PULSE 65–79; RESP 19–20; TEMP 36.3–36.7; O2SAT 91–96
[2025-07-04 05:00] LABS: Hematocrit 35.2 % (37.0-47.0); Hemoglobin 11.5 g/dL (12.0-15.0); Immature Granulocyte Percent A 1.2 % (0-0.5); Lymphocytes Absolute Auto 1.68 K/mm3 (0.9-3.2); Mean Corpuscular HGB Conc 32.7 g/dl (32-36); Mean Corpuscular Hemoglobin 30.0 pg (26-34); Mean Corpuscular Volume 91.9 fl (80-100); Nucleated Red Blood Cells Absolute Auto 0.000 K/mm3 (0.0-0.012); Nucleated Red Blood Cells Perc 0.0 % (0.0-0.2); Platelet Count Result 192 k/mm3 (150-375); Red Blood Count 3.83 M/mm3 (4.2-5.4); White Blood Count 6.7 K/mm3 (4.5-10.0)
[2025-07-04 05:24] LABS: Alanine Aminotransferase 24 U/L (6-35); Albumin Level 3.1 g/dL (3.5-5.1); Alkaline Phosphatase 112 U/L (38-126); Anion Gap 4 mmol/L (4-12); Aspartate Amino Transferase 41 U/L (14-36); Bilirubin,Total 0.4 mg/dL (0.2-1.3); Blood Urea Nitrogen 15 mg/dL (7-17); Calcium 8.9 mg/dL (8.4-10.2); Carbon Dioxide 30 mmol/L (22-30); Chloride 98 mmol/L (98-107); Estimated CRCL calculation 42 ml/min; Estimated Glomerular Filt Rate 53; Glucose 266 mg/dL (65-110); Potassium 3.4 mmol/L (3.4-5.0); Sodium 132 mmol/L (137-145); Total Protein 5.8 g/dL (6.3-8.2)
[2025-07-04] MEDS: metroNIDAZOLE 500 MG/ISO 100ML 500 MG/100 ML BAG 100 MG IVPB ×3 (05:47→21:55)
--- NOTE | 2025-07-04 08:10 | P.PNIM_ITS ---
Progress Note: A&P Assessment and Plan (1) Pneumonia: Qualifiers: Laterality: right Lung location: lower lobe of lung Pneumonia type: due to unspecified organism Qualified Code(s): J18.9 - Pneumonia, unspecified organism Code(s): J18.9 - Pneumonia, unspecified organism Status: Acute Assessment and Plan: Improving 2 L home O2 at night CT of the abdomen/pelvis yesterday showed ground-glass opacities in the right middle and lower lobes consistent with pneumonia. - supportive care: Mucinex, Tessalon Perles, Tylenol, DuoNebs - speech to evaluate pending - monitor O2 saturations Modified barium swallow past now on diabetic diet Doxy and Rocephin AM labs Blood cultures no growth at 48 hours (2) Diverticulitis of descending colon: Code(s): K57.32 - Diverticulitis of large intestine without perforation or abscess without bleeding Status: Acute Assessment and Plan: Improving - CT abd/pelvis, 06/29: uncomplicated diverticulitis at the junction of the descending and sigmoid colon. - started on Ceftriaxone and Metronidazole on 06/30 - IV fluids: 1L bolus, now on 75 mL/hr x1L DC Diabetic diet - pain medication prn - daily clinical reassessment for improvement -senna, add miralax daily scheduled -nursing reported BRBPR when patient had a bowel movement with prolapse noted. Patient reports this happens at home also. 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 - hypoglycemia protocol - POC blood glucose a.c. HS SSI - Hold home Cayla. - A1C 7.8% on 02/18/2025 Lantus increased (4) Hypertension: Qualifiers: Hypertension type: primary hypertension Qualified Code(s): I10 - Essential (primary) hypertension Code(s): I10 - Essential (primary) hypertension Status: Chronic Assessment and Plan: Stable - continue home medications: Coreg 25 mg b.i.d. - monitor (5) Chronic kidney disease, stage 3: Qualifiers: Chronic kidney disease stage 3 subtype: stage 3a (GFR 45-59) Qualified Code(s): N18.31 - Chronic kidney disease, stage 3a Code(s): N18.30 - Chronic kidney disease, stage 3 unspecified Status: Chronic Assessment and Plan: Stable Creatinine 1.04, BUN 18, and GFR 51 upon admission on 06/30. At baseline. - trend renal function - monitor electrolytes, correct as needed -AM labs (6) Congestive heart failure: Qualifiers: Heart failure chronicity: chronic Heart failure type: unspecified Qualified Code(s): I50.9 - Heart failure, unspecified Code(s): I50.9 - Heart failure, unspecified Status: Chronic Assessment and Plan: previous echo, June of 2024. LV systolic function was normal with an estimated EF of 55-60%. RV size mildly dilated with normal systolic function. Monitor for fluid overload - continue Lasix 20 mg daily (7) Iron deficiency anemia: Qualifiers: Iron deficiency anemia type: unspecified iron deficiency Qualified Code(s): D50.9 - Iron deficiency anemia, unspecified Code(s): D50.9 - Iron deficiency anemia, unspecified Status: Chronic Assessment and Plan: Stable History of iron deficiency anemia. Hemoglobin 11.7 on upon admission on 06/30. Stable. No signs of bleeding - transfuse if <7 - monitor (8) Chronic respiratory failure with hypoxia, on home oxygen therapy: Code(s): J96.11 - Chronic respiratory failure with hypoxia; Z99.81 - Dependence on supplemental oxygen Status: Acute Assessment and Plan: Requires 2L at night chronically, continue. (9) Confusion: Code(s): R41.0 - Disorientation, unspecified Status: Acute Assessment and Plan: Patient called 911 several times after she was woken up by laboratory she thought this was breaking into her house Daughter is requested we limit testing trend midnight, and sleep hygiene Zyprexa at night Patient slept much better last night did not have any issues with hallucinations. Due to daytime drowsiness Xanax has been changed from scheduled to p.r.n. (10) Lactic acidosis: Code(s): E87.20 - Acidosis, unspecified Status: Acute Assessment and Plan: Resolved Patient found to have pneumonia and acute uncomplicated diverticulitis. on ceftriaxone, doxy, Flagyl. - blood cultures obtained on 06/30, pending - monitor hemodynamic stability - no current leukocytosis, monitor Plan PT OT evaluate and treat activity as tolerated with assistance Diet: Diabetic diet GI Prophylaxis: n/a DVT Prophylaxis: Lovenox Lines/Tubes: Peripheral IV Code Status: Full code Time Spent With Patient Time with patient: Greater than 35 minutes Subjective Date/time seen: 07/04/25 08:10 Interval history: 79 y/o F with PMH of DM2, asthma/COPD, HLD, HTN, GERD, HFpEF, stroke, coronary artery disease, anemia, anxiety/depression, [place], and gastric ulcer presents here with general decline. Blood cultures pending, on Flagyl, cefepime and doxy Blood sugars consistently over 250, Lantus increased Per nursing patient had some bright red blood per rectum. Surgery is consulted pending recommendations. Review of Systems Review of Systems: 12 systems were reviewed and are negativ e except for as per HPI. Exam Narrative: General: well appearing, appears stated age. HEENT: normocephalic, atraumatic. Mucous membranes moist. EOMI, PERRLA, bilateral sclera anicteric, no conjunctival injection. Neck supple Respiratory: clear bilaterally. No rales/rhonic/wheezes. Cardiovascular: Regular rate and rhythm, normal S1-S2. No murmurs, rubs, or clicks. Abdomen: Soft, round, no pulsatile masses, nondistended and nontender. No rebound, no guarding. Bowel sounds present to all four quadrants Extremities: No cyanosis, clubbing, or edema present.Active ROM to all four extremities. Neuro: Alert and orientated x 2 Skin: Warm, dry, and intact, without rash Psych: pleasant, cooperative, normal speech, normal affect, no hallucinations, no dysarthia Objective Data Vital Signs Vital Signs: Vital Signs - 24 hr 07/03/25 08:29 07/03/25 08:49 07/03/25 08:49 Temperature Pulse Rate 75 72 72 Respiratory Rate 20 20 Blood Pressure Pulse Oximetry 92 Oxygen Delivery Room Air 07/03/25 14:00 07/03/25 20:00 07/03/25 20:18 Temperature 97.8 F Pulse Rate 74 75 75 Respiratory Rate 19 19 Blood Pressure 133/59 L Pulse Oximetry 93 93 Oxygen Delivery Room Air 07/03/25 21:03 07/04/25 06:00 Temperature 97.9 F 97.7 F Pulse Rate 74 65 Respiratory Rate 18 20 Blood Pressure 156/69 H 130/60 Pulse Oximetry 90 94 Oxygen Delivery Intake/Output Intake/Output: Intake & Output 07/01/25 07/02/25 07/03/25 07/04/25 23:59 23:59 23:59 23:59 Intake Total 1320 1760 1102 250 Output Total 700 1400 2950 120 Balance 620 360 -6093 130 Meds/Results Medications: Active Medications Generic Name Dose Route Start Last Admin Trade Name Freq PRN Reason Stop Dose Admin Acetaminophen 650 mg 06/30/25 17:56 07/03/25 20:36 Acetaminophen 325 Mg Tablet PO 650 mg Q6H PRN Administration Mild Pain (1-3) or Fever Hydrocodone Bitart/Acetaminophen 1 tab 06/30/25 17:56 Hydrocodone/Acetaminophen (*Crx) 5-325 Mg Tablet PO Q6H PRN Pain Rated 4-6 Albuterol/Ipratropium 3 ml 06/30/25 17:56 07/02/25 14:50 Ipratropium 0.5 Mg/Albuterol Sulfate 2.5 Mg (Base) Ampul.Neb 3 Ml INHALATION 3 ml Q6HRT PRN Administration Shortness Of Breath Or Wheezing Alprazolam 1.5 mg 06/30/25 21:00 07/03/25 20:16 Alprazolam (*Crx) 0.5 Mg Tablet PO 1.5 mg HS SADI Administration Alprazolam 1 mg 07/01/25 09:00 07/03/25 17:27 Alprazolam (*Crx) 0.5 Mg Tablet BY MOUTH Not Given TID SADI Artificial Tears 1 drop 06/30/25 21:10 Artificial Tears Ophth Soln 15 Ml Bottle EACH EYE QID PRN Dry Eye(s) Aspirin 81 mg 07/01/25 09:00 07/03/25 08:29 Aspirin 81 Mg Enteric Tablet PO 81 mg DAILY SADI Administration Atorvastatin Calcium 20 mg 07/01/25 21:00 07/03/25 20:16 Atorvastatin 20 Mg Tablet PO 20 mg HS SADI Administration Benzonatate 100 mg 06/30/25 17:56 Benzonatate 100 Mg Capsule PO TID PRN Cough Buspirone HCl 20 mg 07/01/25 09:00 07/03/25 17:27 Buspirone Hcl 10 Mg Tablet PO Not Given TID SADI Calcium Carbonate 200 mg 06/30/25 21:10 Calcium Carbonate (Tums) 500 Mg (200 Mg Elemental) PO Q6H PRN Indigestion Carvedilol 25 mg 07/01/25 09:00 07/03/25 20:18 Carvedilol 25 Mg Tablet PO 25 mg Q12HR SADI Administration Dextrose 12.5 gm 06/30/25 18:01 Dextrose 50% 25 Gm/50 Ml Syringe IV PUSH PRN PRN Hypoglycemia Protocol Dicyclomine HCl 20 mg 06/30/25 17:56 Dicyclomine Hcl 10 Mg Capsule PO QID PRN Abdominal Cramping Donepezil HCl 10 mg 06/30/25 21:10 07/03/25 20:16 Donepezil Hcl 10 Mg Tablet PO 10 mg HS SADI Administration Enoxaparin Sodium 40 mg 07/01/25 09:00 07/03/25 08:30 Enoxaparin 40 Mg/0.4 Ml Syringe SUB-Q 40 mg DAILY SADI Administration Ergocalciferol 1,250 mcg 07/07/25 09:00 Ergocalciferol (Vitamin D2) 1,250 Mcg (50,000 Units) Capsule PO WEEKLY SADI Ferrous Sulfate 325 mg 07/01/25 09:00 07/03/25 08:30 Ferrous Sulfate 325 Mg Tablet BY MOUTH 325 mg DAILY SADI Administration Fluticasone Propionate 1 spray 07/01/25 09:00 07/03/25 20:20 Fluticasone Propionate 0.05% Na Spr 16 Gm Btl (*Bkc) NASAL 1 spray Q12HR SADI Administration Fluticasone/Umeclidinium/Vilanterol 1 puff 07/01/25 08:00 07/03/25 08:48 Fluticasone/Umeclidin/Vilanter 100-62.5-25 Mcg Ellipta INHALATION 1 puff DAILYRT SADI Administration Furosemide 20 mg 07/01/25 09:00 07/03/25 08:31 Furosemide 20 Mg Tablet PO 20 mg QAM SADI Administration Gabapentin 300 mg 07/01/25 09:00 07/03/25 17:15 Gabapentin 300 Mg Capsule PO 300 mg TID SADI Administration Glucagon 1 mg 06/30/25 18:01 Glucagon For Inj 1 Mg Vial IM PRN PRN Hypoglycemia Protocol Glucose 15 gm 06/30/25 18:01 Glucose Oral Gel 15 Gm Of Glucse In 37.5 Gm Tube PO PRN PRN Hypoglycemia Protocol Guaifenesin 600 mg 06/30/25 21:00 07/03/25 20:17 Guaifenesin 12 Hr 600 Mg Tabcr PO 600 mg Q12HR SADI Administration Metronidazole 500 mg in 100 mls @ 100 mls/hr 07/01/25 06:00 07/04/25 05:47 Flagyl 500 Mg/Iso Soln 100 Ml IVPB 100 mls/hr Q8HR SADI Administration Dextrose 1,000 mls @ 100 mls/hr 06/30/25 18:01 Dextrose 5% 1,000 Ml IVPB PRN PRN Hypoglycemia Protocol Ceftriaxone Sodium 1 gm/ 50 mls @ 100 mls/hr 07/02/25 09:00 07/03/25 08:29 Sodium Chloride IVPB 100 mls/hr Q24H SADI Administration Doxycycline Hyclate 100 mg/ 100 mls @ 100 mls/hr 07/02/25 09:00 07/03/25 20:11 Sodium Chloride IVPB 100 mls/hr Q12H SADI Administration Insulin Aspart 4 - 8 units 07/02/25 12:00 07/03/25 22:24 Insulin Aspart (*Bkc) 100 Units/Ml SUB-Q 6 units 0800,1200,1700,2100 SADI Administration Protocol Insulin Glargine 10 units 07/02/25 21:00 07/03/25 22:24 Insulin Glargine (*Bkc) 100 Units/Ml SUB-Q 10 units HS SADI Administration Methocarbamol 750 mg 06/30/25 21:10 Methocarbamol 750 Mg Tablet PO TID PRN MUSCLE SPASMS Miscellaneous Information 0 each 06/30/25 00:01 Gemtesa Nonform Can Pt Bring From Home? XX 07/30/25 00:00 CLARIFY SADI Montelukast Sodium 10 mg 07/01/25 21:00 07/03/25 20:17 Montelukast Sodium 10 Mg Tablet PO 10 mg HS SADI Administration Multivitamins/Minerals 1 tab 07/01/25 09:00 07/03/25 08:31 Multivitamins /C Lutein (Centrum Silver) Tablet *Bkc PO 1 tab QAM SADI Administration Non-Formulary Medication 75 mg 07/01/25 09:00 Vibegron [Gemtesa] PO 07/31/25 08:59 DAILY SADI Pantoprazole Sodium 40 mg 07/01/25 09:00 07/03/25 08:31 Pantoprazole 40 Mg Tablet PO 40 mg DAILY SADI Administration Paroxetine HCl 20 mg 07/01/25 09:00 07/03/25 08:32 Paroxetine 20 Mg Tablet PO 20 mg DAILY SADI Administration Paroxetine HCl 40 mg 07/01/25 09:00 07/03/25 08:32 Paroxetine 20 Mg Tablet PO 40 mg DAILY SADI Administration Polyethylene Glycol 17 gm 06/30/25 21:10 Polyethylene Glycol 3350 17 Gm Powd.Pack PO BID PRN Constipation Polyethylene Glycol 17 gm 07/04/25 09:00 Polyethylene Glycol 3350 17 Gm Powd.Pack PO QAM SADI Senna 8.6 mg 07/02/25 21:00 07/03/25 20:17 Sennosides 8.6 Mg Tablet PO 8.6 mg HS SADI Administration Tramadol HCl 50 mg 06/30/25 21:10 Tramadol Hcl (*Crx) 50 Mg Tablet PO Q6H PRN Pain (Scale Score 4-6) Vitamin B Complex 1 cap 07/01/25 09:00 07/03/25 08:32 Vitamin B Complex Capsule PO 1 cap DAILY SADI Administration Radiology Results: ITS Impressions Chest X-Ray 06/30/25 13:17 IMPRESSION: 1. Probably bibasilar infiltrates which could be associated pneumonia or aspiration. Modified Barium Swallow 07/01/25 14:15 IMPRESSION: No aspiration observed. See speech therapist's note for complete evaluation. Labs Labs: Laboratory Results - last 24 hr 07/03/25 07/03/25 07/03/25 08:05 12:01 16:53 WBC RBC Hgb Hct MCV MCH MCHC RDW Plt Count MPV Immature Gran % (Auto) Neut % (Auto) Lymph % (Auto) Petroleum % (Auto) Eos % (Auto) Baso % (Auto) Lymph # (Auto) Petroleum # (Auto) Eos # (Auto) Baso # (Auto) Abs Immat Gran (auto) Absolute Neuts (auto) Absolute Nucleated RBC Nucleated RBC % Sodium Potassium Chloride Carbon Dioxide Anion Gap BUN Creatinine Estim Creat Clear Calc Estimated GFR Glucose POC Capillary Glucose 290 H 292 H 303 H Calcium Total Bilirubin AST ALT Alkaline Phosphatase Total Protein Albumin 07/03/25 07/04/25 20:29 04:52 WBC 6.7 RBC 3.83 L Hgb 11.5 L Hct 35.2 L MCV 91.9 MCH 30.0 MCHC 32.7 RDW 13.3 Plt Count 192 MPV 11.2 H Immature Gran % (Auto) 1.2 H Neut % (Auto) 60.0 Lymph % (Auto) 25.2 Petroleum % (Auto) 8.6 H Eos % (Auto) 4.2 Baso % (Auto) 0.8 Lymph # (Auto) 1.68 Petroleum # (Auto) 0.6 Eos # (Auto) 0.3 Baso # (Auto) 0.1 Abs Immat Gran (auto) 0.08 H Absolute Neuts (auto) 4.0 Absolute Nucleated RBC 0.000 Nucleated RBC % 0.0 Sodium 132 L Potassium 3.4 Chloride 98 Carbon Dioxide 30 Anion Gap 4 BUN 15 Creatinine 1.01 H Estim Creat Clear Calc 42 Estimated GFR 53 L Glucose 266 H POC Capillary Glucose 326 H Calcium 8.9 Total Bilirubin 0.4 AST 41 H ALT 24 Alkaline Phosphatase 112 Total Protein 5.8 L Albumin 3.1 L
[2025-07-04] MEDS: FLUTICASONE/UMECLIDIN/VILANTER 100-62.5-25 MCG ELLIPTA 1 PUFF INHALATION (08:15)
[2025-07-04] MEDS: INSULIN ASPART (*BKC) 100 UNITS/ML SUB-Q ×4 (08:28→20:52)
[2025-07-04] MEDS: ASPIRIN 81 MG ENTERIC TABLET PO (08:35)
[2025-07-04] MEDS: ALPRAZolam (*CRX) 0.5 MG TABLET 1 MG BY MOUTH (08:35)
[2025-07-04] MEDS: cefTRIAXone 1 GM in SODIUM CHLORIDE 0.9% IV 50 ML 100 ML IVPB (08:38)
[2025-07-04] MEDS: DOXYCYCLINE IV 100 MG in SODIUM CHLORIDE 0.9% IV 100 ML IVPB ×2 (08:39→20:36)
[2025-07-04] MEDS: ENOXAPARIN 40 MG/0.4 ML SYRINGE SUB-Q (08:39)
[2025-07-04] MEDS: FUROSEMIDE 20 MG TABLET PO (08:39)
[2025-07-04] MEDS: GABAPENTIN 300 MG CAPSULE PO ×3 (08:40→17:11)
[2025-07-04] MEDS: guaiFENesin 12 HR 600 MG TABCR PO ×2 (08:40→20:38)
[2025-07-04] MEDS: VITAMIN B COMPLEX CAPSULE 1 CAP PO (08:40)
[2025-07-04] MEDS: PANTOPRAZOLE 40 MG TABLET PO (08:40)
[2025-07-04] MEDS: MULTIVITAMINS /C LUTEIN (CENTRUM SILVER) TABLET *BKC 1 TAB PO (08:41)
[2025-07-04] MEDS: FLUTICASONE PROPIONATE 0.05% NA SPR 16 GM BTL (*BKC) 1 SPRAY NASAL ×2 (08:42→20:39)
[2025-07-04] MEDS: FERROUS SULFATE 325 MG TABLET BY MOUTH (08:46)
[2025-07-04] MEDS: LIDOCAINE 5% PATCH 1 PATCH TRANSDERM (12:33)
[2025-07-04] MEDS: ATORVASTATIN 20 MG TABLET PO (20:37)
[2025-07-04] MEDS: MONTELUKAST SODIUM 10 MG TABLET PO (20:38)
[2025-07-04] MEDS: SENNOSIDES 8.6 MG TABLET PO (20:38)
[2025-07-04] MEDS: DONEPEZIL HCL 10 MG TABLET PO (20:38)
[2025-07-04] MEDS: INSULIN GLARGINE (*BKC) 100 UNITS/ML 15 UNITS SUB-Q (20:48)
[2025-07-05] VITALS (8 sets, daily range): BP systolic 159–173; BP diastolic 60–79; PULSE 73–85; RESP 18–20; TEMP 36.4–36.6; O2SAT 93–94
[2025-07-05] MEDS: metroNIDAZOLE 500 MG/ISO 100ML 500 MG/100 ML BAG 100 MG IVPB ×3 (05:07→21:25)
--- NOTE | 2025-07-05 07:33 | PCRCNOTE ---
Pt refused her Trelegy Ellipta. I could not talk her into taking it.
--- NOTE | 2025-07-05 07:39 | P.PNIM_ITS ---
Progress Note: A&P Assessment and Plan (1) Pneumonia: Qualifiers: Laterality: right Lung location: lower lobe of lung Pneumonia type: due to unspecified organism Qualified Code(s): J18.9 - Pneumonia, unspecified organism Code(s): J18.9 - Pneumonia, unspecified organism Status: Acute Assessment and Plan: Improving 2 L home O2 at night CT of the abdomen/pelvis yesterday showed ground-glass opacities in the right middle and lower lobes consistent with pneumonia. - supportive care: Mucinex, Tessalon Perles, Tylenol, DuoNebs - speech to evaluate pending - monitor O2 saturations Modified barium swallow past now on diabetic diet Doxy and Rocephin AM labs Blood cultures no growth at 48 hours Patient may transition to oral antibiotics on discharge (2) Diverticulitis of descending colon: Code(s): K57.32 - Diverticulitis of large intestine without perforation or abscess without bleeding Status: Acute Assessment and Plan: Improving - CT abd/pelvis, 06/29: uncomplicated diverticulitis at the junction of the descending and sigmoid colon. - started on Ceftriaxone and Metronidazole on 06/30 - pain medication prn -senna, add miralax p.r.n. (3) Insulin dependent type 2 diabetes mellitus: Code(s): E11.9 - Type 2 diabetes mellitus without complications; Z79.4 - buttermaker (current) use of insulin Status: Chronic Assessment and Plan: Uncontrolled Arrived to the emergency department on 06/30 hyperglycemic with a glucose of 569, No anion gap. - hypoglycemia protocol - POC blood glucose a.c. HS SSI - Hold home Januvia. - A1C 7.8% on 02/18/2025 Lantus increased Bolus dose (4) Hypertension: Qualifiers: Hypertension type: primary hypertension Qualified Code(s): I10 - Essential (primary) hypertension Code(s): I10 - Essential (primary) hypertension Status: Chronic Assessment and Plan: Stable - continue home medications: Coreg 25 mg b.i.d. - monitor L (5) Chronic kidney disease, stage 3: Qualifiers: Chronic kidney disease stage 3 subtype: stage 3a (GFR 45-59) Qualified Code(s): N18.31 - Chronic kidney disease, stage 3a Code(s): N18.30 - Chronic kidney disease, stage 3 unspecified Status: Chronic Assessment and Plan: Stable Creatinine 1.04, BUN 18, and GFR 51 upon admission on 06/30. At baseline. - trend renal function - monitor electrolytes, correct as needed -AM labs (6) Congestive heart failure: Qualifiers: Heart failure chronicity: chronic Heart failure type: unspecified Qualified Code(s): I50.9 - Heart failure, unspecified Code(s): I50.9 - Heart failure, unspecified Status: Chronic Assessment and Plan: Stable previous echo, June of 2024. LV systolic function was normal with an estimated EF of 55-60%. RV size mildly dilated with normal systolic function. Monitor for fluid overload - continue Lasix 20 mg daily (7) Iron deficiency anemia: Qualifiers: Iron deficiency anemia type: unspecified iron deficiency Qualified Code(s): D50.9 - Iron deficiency anemia, unspecified Code(s): D50.9 - Iron deficiency anemia, unspecified Status: Chronic Assessment and Plan: Stable History of iron deficiency anemia. Hemoglobin 11.7 on upon admission on 06/30. Stable. No signs of bleeding - transfuse if <7 - monitor (8) Chronic respiratory failure with hypoxia, on home oxygen therapy: Code(s): J96.11 - Chronic respiratory failure with hypoxia; Z99.81 - Dependence on supplemental oxygen Status: Acute Assessment and Plan: Stable Requires 2L at night chronically, continue. (9) Confusion: Code(s): R41.0 - Disorientation, unspecified Status: Acute Assessment and Plan: Improving Patient called 911 several times after she was woken up by laboratory she thought this was breaking into her house Daughter is requested we limit testing trend midnight, and sleep hygiene Zyprexa at night Patient slept much better last night did not have any issues with hallucinations. Due to daytime drowsiness Xanax has been changed from scheduled to p.r.n. (10) Lactic acidosis: Code(s): E87.20 - Acidosis, unspecified Status: Acute Assessment and Plan: Resolved Patient found to have pneumonia and acute uncomplicated diverticulitis. on ceftriaxone, doxy, Flagyl. - blood cultures obtained on 06/30, pending - monitor hemodynamic stability - no current leukocytosis, monitor (11) Bright red blood per rectum: Code(s): K62.5 - Hemorrhage of anus and rectum Status: Acute Assessment and Plan: Results Per nursing it was a 1 time scanty amount blood No other signs of bleeding No current signs of prolapse Plan PT OT evaluate and treat activity as tolerated with assistance Diet: Diabetic diet GI Prophylaxis: n/a DVT Prophylaxis: Lovenox Lines/Tubes: Peripheral IV Code Status: Full code Subjective Date/time seen: 07/05/25 07:39 Interval history: 79 y/o F with PMH of DM2, asthma/COPD, HLD, HTN, GERD, HFpEF, stroke, coronary artery disease, anemia, anxiety/depression, ID, and gastric ulcer presents here with general decline. Blood cultures pending, on Flagyl, cefepime and doxy Blood sugars consistently over 300, Lantus increased, bolus dose added Per nursing patient only a scant amount of blood we being white-corona has had no other bloody bowel movement no need for surgical consult. Patient is medically ready for discharge and transition to oral antibiotics Review of Systems Review of Systems: 12 systems were reviewed and are negativ e except for as per HPI. Exam Narrative: General: well appearing, appears stated age. HEENT: normocephalic, atraumatic. Mucous membranes moist. EOMI, PERRLA, bilateral sclera anicteric, no conjunctival injection. Neck supple Respiratory: Wheezes bilaterally. Cardiovascular: Regular rate and rhythm, normal S1-S2. No murmurs, rubs, or clicks. Abdomen: Soft, round, no pulsatile masses, nondistended and nontender. No rebound, no guarding. Bowel sounds present to all four quadrants Extremities: No cyanosis, clubbing, or edema present.Active ROM to all four extremities. Neuro: Alert and orientated x 2-3 Skin: Warm, dry, and intact, without rash Psych: pleasant, cooperative, normal speech, normal affect, no hallucinations, no dysarthia Objective Data Vital Signs Vital Signs: Vital Signs - 24 hr 07/04/25 08:00 07/04/25 08:17 07/04/25 08:17 Temperature Pulse Rate 70 70 Respiratory Rate 20 20 Blood Pressure Pulse Oximetry 93 Oxygen Delivery Room Air Room Air 07/04/25 08:36 07/04/25 09:03 07/04/25 14:00 Temperature 98.1 F Pulse Rate 72 78 Respiratory Rate 19 Blood Pressure 165/77 H Pulse Oximetry 96 Oxygen Delivery Room Air 07/04/25 20:00 07/04/25 20:27 07/04/25 20:41 Temperature 97.4 F L Pulse Rate 79 79 79 Respiratory Rate 20 20 Blood Pressure 166/64 H Pulse Oximetry 91 91 Oxygen Delivery Room Air 07/05/25 06:00 Temperature 97.9 F Pulse Rate 73 Respiratory Rate 20 Blood Pressure 167/60 H Pulse Oximetry 94 Oxygen Delivery Intake/Output Intake/Output: Intake & Output 07/02/25 07/03/25 07/04/25 07/05/25 23:59 23:59 23:59 23:59 Intake Total 1760 1252 1520 340 Output Total 1400 2950 2020 1100 Balance 434 -1698 -500 -760 Meds/Results Medications: Active Medications Generic Name Dose Route Start Last Admin Trade Name Freq PRN Reason Stop Dose Admin Acetaminophen 650 mg 06/30/25 17:56 07/03/25 20:36 Acetaminophen 325 Mg Tablet PO 650 mg Q6H PRN Administration Mild Pain (1-3) or Fever Hydrocodone Bitart/Acetaminophen 1 tab 06/30/25 17:56 Hydrocodone/Acetaminophen (*Crx) 5-325 Mg Tablet PO Q6H PRN Pain Rated 4-6 Albuterol/Ipratropium 3 ml 06/30/25 17:56 07/02/25 14:50 Ipratropium 0.5 Mg/Albuterol Sulfate 2.5 Mg (Base) Ampul.Neb 3 Ml INHALATION 3 ml Q6HRT PRN Administration Shortness Of Breath Or Wheezing Alprazolam 1.5 mg 07/04/25 10:34 Alprazolam (*Crx) 0.5 Mg Tablet PO HS PRN Anxiety Alprazolam 1 mg 07/04/25 10:34 Alprazolam (*Crx) 0.5 Mg Tablet BY MOUTH TID PRN Anxiety Artificial Tears 1 drop 06/30/25 21:10 Artificial Tears Ophth Soln 15 Ml Bottle EACH EYE QID PRN Dry Eye(s) Aspirin 81 mg 07/01/25 09:00 07/04/25 08:35 Aspirin 81 Mg Enteric Tablet PO 81 mg DAILY SADI Administration Atorvastatin Calcium 20 mg 07/01/25 21:00 07/04/25 20:37 Atorvastatin 20 Mg Tablet PO 20 mg HS SADI Administration Benzonatate 100 mg 06/30/25 17:56 Benzonatate 100 Mg Capsule PO TID PRN Cough Buspirone HCl 20 mg 07/01/25 09:00 07/04/25 17:11 Buspirone Hcl 10 Mg Tablet PO 20 mg TID SADI Administration Calcium Carbonate 200 mg 06/30/25 21:10 Calcium Carbonate (Tums) 500 Mg (200 Mg Elemental) PO Q6H PRN Indigestion Carvedilol 25 mg 07/01/25 09:00 07/04/25 20:41 Carvedilol 25 Mg Tablet PO 25 mg Q12HR SADI Administration Dextrose 12.5 gm 06/30/25 18:01 Dextrose 50% 25 Gm/50 Ml Syringe IV PUSH PRN PRN Hypoglycemia Protocol Dicyclomine HCl 20 mg 06/30/25 17:56 Dicyclomine Hcl 10 Mg Capsule PO QID PRN Abdominal Cramping Donepezil HCl 10 mg 06/30/25 21:10 07/04/25 20:38 Donepezil Hcl 10 Mg Tablet PO 10 mg HS SADI Administration Enoxaparin Sodium 40 mg 07/01/25 09:00 07/04/25 08:39 Enoxaparin 40 Mg/0.4 Ml Syringe SUB-Q 40 mg DAILY SADI Administration Ergocalciferol 1,250 mcg 07/07/25 09:00 Ergocalciferol (Vitamin D2) 1,250 Mcg (50,000 Units) Capsule PO WEEKLY SADI Ferrous Sulfate 325 mg 07/01/25 09:00 07/04/25 08:46 Ferrous Sulfate 325 Mg Tablet BY MOUTH 325 mg DAILY SADI Administration Fluticasone Propionate 1 spray 07/01/25 09:00 07/04/25 20:39 Fluticasone Propionate 0.05% Na Spr 16 Gm Btl (*Bkc) NASAL 1 spray Q12HR SADI Administration Fluticasone/Umeclidinium/Vilanterol 1 puff 07/01/25 08:00 07/05/25 07:33 Fluticasone/Umeclidin/Vilanter 100-62.5-25 Mcg Ellipta INHALATION Not Given DAILYRT SADI Furosemide 20 mg 07/01/25 09:00 07/04/25 08:39 Furosemide 20 Mg Tablet PO 20 mg QAM SADI Administration Gabapentin 300 mg 07/01/25 09:00 07/04/25 17:11 Gabapentin 300 Mg Capsule PO 300 mg TID SADI Administration Glucagon 1 mg 06/30/25 18:01 Glucagon For Inj 1 Mg Vial IM PRN PRN Hypoglycemia Protocol Glucose 15 gm 06/30/25 18:01 Glucose Oral Gel 15 Gm Of Glucse In 37.5 Gm Tube PO PRN PRN Hypoglycemia Protocol Guaifenesin 600 mg 06/30/25 21:00 07/04/25 20:38 Guaifenesin 12 Hr 600 Mg Tabcr PO 600 mg Q12HR SADI Administration Metronidazole 500 mg in 100 mls @ 100 mls/hr 07/01/25 06:00 07/05/25 06:07 Flagyl 500 Mg/Iso Soln 100 Ml IVPB Infused Q8HR SADI Infusion Dextrose 1,000 mls @ 100 mls/hr 06/30/25 18:01 Dextrose 5% 1,000 Ml IVPB PRN PRN Hypoglycemia Protocol Ceftriaxone Sodium 1 gm/ 50 mls @ 100 mls/hr 07/02/25 09:00 07/04/25 09:08 Sodium Chloride IVPB Infused Q24H SADI Infusion Doxycycline Hyclate 100 mg/ 100 mls @ 100 mls/hr 07/02/25 09:00 07/04/25 21:36 Sodium Chloride IVPB Infused Q12H SADI Infusion Insulin Aspart 4 - 8 units 07/02/25 12:00 07/04/25 20:52 Insulin Aspart (*Bkc) 100 Units/Ml SUB-Q 8 units 0800,1200,1700,2100 SADI Administration Protocol Insulin Glargine 15 units 07/04/25 21:00 07/04/25 20:48 Insulin Glargine (*Bkc) 100 Units/Ml SUB-Q 15 units HS SADI Administration Lidocaine 1 patch 07/04/25 10:35 07/04/25 12:33 Lidocaine 5% Patch TRANSDERM 1 patch DAILY SADI Administration Methocarbamol 750 mg 06/30/25 21:10 Methocarbamol 750 Mg Tablet PO TID PRN MUSCLE SPASMS Montelukast Sodium 10 mg 07/01/25 21:00 07/04/25 20:38 Montelukast Sodium 10 Mg Tablet PO 10 mg HS SADI Administration Multivitamins/Minerals 1 tab 07/01/25 09:00 07/04/25 08:41 Multivitamins /C Lutein (Centrum Silver) Tablet *Bkc PO 1 tab QAM SADI Administration Pantoprazole Sodium 40 mg 07/01/25 09:00 07/04/25 08:40 Pantoprazole 40 Mg Tablet PO 40 mg DAILY SADI Administration Paroxetine HCl 20 mg 07/01/25 09:00 07/04/25 08:40 Paroxetine 20 Mg Tablet PO 20 mg DAILY SADI Administration Paroxetine HCl 40 mg 07/01/25 09:00 07/04/25 08:41 Paroxetine 20 Mg Tablet PO 40 mg DAILY SADI Administration Polyethylene Glycol 17 gm 06/30/25 21:10 Polyethylene Glycol 3350 17 Gm Powd.Pack PO BID PRN Constipation Polyethylene Glycol 17 gm 07/04/25 09:00 07/04/25 08:41 Polyethylene Glycol 3350 17 Gm Powd.Pack PO 17 gm QAM SADI Administration Senna 8.6 mg 07/02/25 21:00 07/04/25 20:38 Sennosides 8.6 Mg Tablet PO 8.6 mg HS SADI Administration Tramadol HCl 50 mg 06/30/25 21:10 Tramadol Hcl (*Crx) 50 Mg Tablet PO Q6H PRN Pain (Scale Score 4-6) Vitamin B Complex 1 cap 07/01/25 09:00 07/04/25 08:40 Vitamin B Complex Capsule PO 1 cap DAILY SADI Administration Radiology Results: ITS Impressions Chest X-Ray 06/30/25 13:17 IMPRESSION: 1. Probably bibasilar infiltrates which could be associated pneumonia or aspiration. Modified Barium Swallow 07/01/25 14:15 IMPRESSION: No aspiration observed. See speech therapist's note for complete evaluation. Labs Labs: Laboratory Results - last 24 hr 07/04/25 07/04/25 07/04/25 08:05 11:53 16:57 POC Capillary Glucose 270 H 385 H 327 H 07/04/25 20:31 POC Capillary Glucose 332 H Quality VTE Prophylaxis VTE prophylaxis: pharmacologic ordered
[2025-07-05] MEDS: LIDOCAINE 5% PATCH 1 PATCH TRANSDERM (09:17)
[2025-07-05] MEDS: MULTIVITAMINS /C LUTEIN (CENTRUM SILVER) TABLET *BKC 1 TAB PO (09:21)
[2025-07-05] MEDS: FERROUS SULFATE 325 MG TABLET BY MOUTH (09:21)
[2025-07-05] MEDS: ASPIRIN 81 MG ENTERIC TABLET PO (09:21)
[2025-07-05] MEDS: guaiFENesin 12 HR 600 MG TABCR PO ×2 (09:21→20:24)
[2025-07-05] MEDS: FUROSEMIDE 20 MG TABLET PO (09:21)
[2025-07-05] MEDS: VITAMIN B COMPLEX CAPSULE 1 CAP PO (09:21)
[2025-07-05] MEDS: GABAPENTIN 300 MG CAPSULE PO ×3 (09:21→17:15)
[2025-07-05] MEDS: ENOXAPARIN 40 MG/0.4 ML SYRINGE SUB-Q (09:22)
[2025-07-05] MEDS: PANTOPRAZOLE 40 MG TABLET PO (09:22)
[2025-07-05] MEDS: INSULIN ASPART (*BKC) 100 UNITS/ML SUB-Q ×5 (09:27→17:17)
[2025-07-05] MEDS: DOXYCYCLINE IV 100 MG in SODIUM CHLORIDE 0.9% IV 100 ML IVPB ×2 (09:28→20:25)
[2025-07-05] MEDS: cefTRIAXone 1 GM in SODIUM CHLORIDE 0.9% IV 50 ML 100 ML IVPB (09:29)
[2025-07-05] MEDS: FLUTICASONE PROPIONATE 0.05% NA SPR 16 GM BTL (*BKC) 1 SPRAY NASAL ×2 (09:29→20:25)
[2025-07-05] MEDS: ALPRAZolam (*CRX) 0.5 MG TABLET 1 MG BY MOUTH (09:32)
[2025-07-05] MEDS: IPRATROPIUM 0.5 MG/ALBUTEROL SULFATE 2.5 MG (BASE) AMPUL.NEB 3 ML INHALATION (18:09)
[2025-07-05] MEDS: ATORVASTATIN 20 MG TABLET PO (20:24)
[2025-07-05] MEDS: DONEPEZIL HCL 10 MG TABLET PO (20:24)
[2025-07-05] MEDS: MONTELUKAST SODIUM 10 MG TABLET PO (20:25)
[2025-07-05] MEDS: INSULIN GLARGINE (*BKC) 100 UNITS/ML 17 UNITS SUB-Q (21:12)
[2025-07-05] MEDS: INSULIN ASPART (*BKC) 100 UNITS/ML 10 UNITS SUB-Q (21:13)
[2025-07-06 04:24] VITALS: BP 165/62; PULSE 75; RESP 18; TEMP 36.4; O2SAT 91
[2025-07-06] MEDS: metroNIDAZOLE 500 MG/ISO 100ML 500 MG/100 ML BAG 100 MG IVPB (05:58)
[2025-07-06] MEDS: FLUTICASONE/UMECLIDIN/VILANTER 100-62.5-25 MCG ELLIPTA 1 PUFF INHALATION (07:53)
[2025-07-06 07:57] VITALS: PULSE 74; RESP 20; O2SAT 95
--- NOTE | 2025-07-06 08:14 | P.PNIM_ITS ---
Progress Note: A&P Assessment and Plan (1) Pneumonia: Qualifiers: Laterality: right Lung location: lower lobe of lung Pneumonia type: due to unspecified organism Qualified Code(s): J18.9 - Pneumonia, unspecified organism Code(s): J18.9 - Pneumonia, unspecified organism Status: Acute Assessment and Plan: Improving 2 L home O2 at night CT of the abdomen/pelvis yesterday showed ground-glass opacities in the right middle and lower lobes consistent with pneumonia. - supportive care: Mucinex, Tessalon Perles, Tylenol, DuoNebs Doxy and Rocephin transition to oral doxy and Augmentin AM labs Blood cultures no growth at 48 hours (2) Diverticulitis of descending colon: Code(s): K57.32 - Diverticulitis of large intestine without perforation or abscess without bleeding Status: Acute Assessment and Plan: Improving - CT abd/pelvis, 06/29: uncomplicated diverticulitis at the junction of the descending and sigmoid colon. - started on Ceftriaxone and Metronidazole on 06/30 - pain medication prn -senna, add miralax p.r.n. Transition to oral antibiotics for total 7 days (3) Insulin dependent type 2 diabetes mellitus: Code(s): E11.9 - Type 2 diabetes mellitus without complications; Z79.4 - senior care (current) use of insulin Status: Chronic Assessment and Plan: Improved Arrived to the emergency department on 06/30 hyperglycemic with a glucose of 569, No anion gap. - hypoglycemia protocol - POC blood glucose a.c. HS SSI - Hold home [place]. - A1C 7.8% on 02/18/2025 Lantus increased Bolus dose (4) Hypertension: Qualifiers: Hypertension type: primary hypertension Qualified Code(s): I10 - Ess ential (primary) hypertension Code(s): I10 - Essential (primary) hypertension Status: Chronic Assessment and Plan: Stable - continue home medications: Coreg 25 mg b.i.d. - monitor (5) Chronic kidney disease, stage 3: Qualifiers: Chronic kidney disease stage 3 subtype: stage 3a (GFR 45-59) Qualified Code(s): N18.31 - Chronic kidney disease, stage 3a Code(s): N18.30 - Chronic kidney disease, stage 3 unspecified Status: Chronic Assessment and Plan: Stable Creatinine 1.04, BUN 18, and GFR 51 upon admission on 06/30. At baseline. - trend renal function - monitor electrolytes, correct as needed -AM labs (6) Congestive heart failure: Qualifiers: Heart failure type: unspecified Heart failure chronicity: chronic Qualified Code(s): I50.9 - Heart failure, unspecified Code(s): I50.9 - Heart failure, unspecified Status: Chronic Assessment and Plan: Stable previous echo, June of 2024. LV systolic function was normal with an estimated EF of 55-60%. RV size mildly dilated with normal systolic function. Monitor for fluid overload - continue Lasix 20 mg daily (7) Iron deficiency anemia: Qualifiers: Iron deficiency anemia type: unspecified iron deficiency Qualified Code(s): D50.9 - Iron deficiency anemia, unspecified Code(s): D50.9 - Iron deficiency anemia, unspecified Status: Chronic Assessment and Plan: Stable History of iron deficiency anemia. Hemoglobin 11.7 on upon admission on 06/30. Stable. No signs of bleeding - transfuse if <7 - monitor (8) Chronic respiratory failure with hypoxia, on home oxygen therapy: Code(s): J96.11 - Chronic respiratory failure with hypoxia; Z99.81 - Dependence on supplemental oxygen Status: Acute Assessment and Plan: Stable Requires 2L at night chronically, continue. (9) Confusion: Code(s): R41.0 - Disorientation, unspecified Status: Acute Assessment and Plan: Improving Patient called 911 several times after she was woken up by laboratory she thought this was breaking into her house Daughter is requested we limit testing trend midnight, and sleep hygiene Zyprexa at night Patient slept much better last night did not have any issues with hallucinations. Due to daytime drowsiness Xanax has been changed from scheduled to p.r.n. (10) Lactic acidosis: Code(s): E87.20 - Acidosis, unspecified Status: Acute Assessment and Plan: Resolved Patient found to have pneumonia and acute uncomplicated diverticulitis. on ceftriaxone, doxy, Flagyl. - blood cultures obtained on 06/30, pending - monitor hemodynamic stability - no current leukocytosis, monitor (11) Bright red blood per rectum: Code(s): K62.5 - Hemorrhage of anus and rectum Status: Acute Assessment and Plan: Results Per nursing it was a 1 time scanty amount blood No other signs of bleeding No current signs of prolapse Plan PT OT evaluate and treat activity as tolerated with assistance Diet: Diabetic diet GI Prophylaxis: n/a DVT Prophylaxis: Lovenox Lines/Tubes: Peripheral IV Code Status: Full code Subjective Date/time seen: 07/06/25 08:14 Interval history: 79 y/o F with PMH of DM2, asthma/COPD, HLD, HTN, GERD, HFpEF, stroke, coronary artery disease, anemia, anxiety/depression, [place], and gastric ulcer presents here with general decline. Blood cultures no growth 48 hours, on Flagyl, cefepime and doxy transition to oral antibiotics Blood sugars under 250 Chest x-ray improved Patient is medically ready for discharge Review of Systems Review of Systems: 12 systems were reviewed and are negativ e except for as per HPI. Exam 2 Narrative: General: well appearing, appears stated age. HEENT: normocephalic, atraumatic. Mucous membranes moist. EOMI, PERRLA, bilateral sclera anicteric, no conjunctival injection. Neck supple Respiratory: Wheezes bilaterally. Cardiovascular: Regular rate and rhythm, normal S1-S2. No murmurs, rubs, or clicks. Abdomen: Soft, round, no pulsatile masses, nondistended and nontender. No rebound, no guarding. Bowel sounds present to all four quadrants Extremities: No cyanosis, clubbing, or edema present.Active ROM to all four extremities. Neuro: Alert and orientated x 2-3 Skin: Warm, dry, and intact, without rash Psych: pleasant, cooperative, normal speech, normal affect, no hallucinations, no dysarthia Objective Data Vital Signs Vital Signs: Vital Signs - 24 hr 07/05/25 09:21 07/05/25 09:46 07/05/25 14:00 Temperature 98 F Pulse Rate 77 76 Respiratory Rate 18 Blood Pressure 159/79 H Pulse Oximetry 93 94 Oxygen Delivery Room Air 07/05/25 18:09 07/05/25 20:00 07/05/25 20:24 Temperature Pulse Rate 74 82 Respiratory Rate 20 Blood Pressure Pulse Oximetry Oxygen Delivery Room Air 07/05/25 20:41 07/06/25 04:24 07/06/25 07:57 Temperature 97.6 F 97.6 F Pulse Rate 85 75 74 Respiratory Rate 20 18 20 Blood Pressure 173/69 H 165/62 H Pulse Oximetry 93 91 95 Oxygen Delivery Room Air 07/06/25 07:57 Temperature Pulse Rate 74 Respiratory Rate 20 Blood Pressure Pulse Oximetry Oxygen Delivery Intake/Output Intake/Output: Intake & Output 07/03/25 07/04/25 07/05/25 07/06/25 23:59 23:59 23:59 23:59 Intake Total 1252 1520 1670 390 Output Total 2950 2020 1900 1100 [facility] -[phone] -500 -230 -710 Meds/Results Medications: Active Medications Generic Name Dose Route Start Last Admin Trade Name Freq PRN Reason Stop Dose Admin Acetaminophen 650 mg 06/30/25 17:56 07/03/25 20:36 Acetaminophen 325 Mg Tablet PO 650 mg Q6H PRN Administration Mild Pain (1-3) or Fever Hydrocodone Bitart/Acetaminophen 1 tab 06/30/25 17:56 Hydrocodone/Acetaminophen (*Crx) 5-325 Mg Tablet PO Q6H PRN Pain Rated 4-6 Albuterol/Ipratropium 3 ml 06/30/25 17:56 07/05/25 18:09 Ipratropium 0.5 Mg/Albuterol Sulfate 2.5 Mg (Base) Ampul.Neb 3 Ml INHALATION 3 ml Q6HRT PRN Administration Shortness Of Breath Or Wheezing Alprazolam 1.5 mg 07/04/25 10:34 Alprazolam (*Crx) 0.5 Mg Tablet PO HS PRN Anxiety Alprazolam 1 mg 07/04/25 10:34 07/05/25 09:32 Alprazolam (*Crx) 0.5 Mg Tablet BY MOUTH 1 mg TID PRN Administration Anxiety Artificial Tears 1 drop 06/30/25 21:10 Artificial Tears Ophth Soln 15 Ml Bottle EACH EYE QID PRN Dry Eye(s) Aspirin 81 mg 07/01/25 09:00 07/05/25 09:21 Aspirin 81 Mg Enteric Tablet PO 81 mg DAILY SADI Administration Atorvastatin Calcium 20 mg 07/01/25 21:00 07/05/25 20:24 Atorvastatin 20 Mg Tablet PO 20 mg HS SADI Administration Benzonatate 100 mg 06/30/25 17:56 Benzonatate 100 Mg Capsule PO TID PRN Cough Buspirone HCl 20 mg 07/01/25 09:00 07/05/25 17:15 Buspirone Hcl 10 Mg Tablet PO 20 mg TID SADI Administration Calcium Carbonate 200 mg 06/30/25 21:10 Calcium Carbonate (Tums) 500 Mg (200 Mg Elemental) PO Q6H PRN Indigestion Carvedilol 25 mg 07/01/25 09:00 07/05/25 20:24 Carvedilol 25 Mg Tablet PO 25 mg Q12HR SADI Administration Dextrose 12.5 gm 06/30/25 18:01 Dextrose 50% 25 Gm/50 Ml Syringe IV PUSH PRN PRN Hypoglycemia Protocol Dicyclomine HCl 20 mg 06/30/25 17:56 Dicyclomine Hcl 10 Mg Capsule PO QID PRN Abdominal Cramping Docusate Sodium 100 mg 07/05/25 11:12 Docusate Sodium 100 Mg Capsule PO Q12H PRN Constipation Donepezil HCl 10 mg 06/30/25 21:10 07/05/25 20:24 Donepezil Hcl 10 Mg Tablet PO 10 mg HS SADI Administration Enoxaparin Sodium 40 mg 07/01/25 09:00 07/05/25 09:22 Enoxaparin 40 Mg/0.4 Ml Syringe SUB-Q 40 mg DAILY SADI Administration Ergocalciferol 1,250 mcg 07/07/25 09:00 Ergocalciferol (Vitamin D2) 1,250 Mcg (50,000 Units) Capsule PO WEEKLY [facility] Ferrous Sulfate 325 mg 07/01/25 09:00 07/05/25 09:21 Ferrous Sulfate 325 Mg Tablet BY MOUTH 325 mg DAILY SADI Administration Fluticasone Propionate 1 spray 07/01/25 09:00 07/05/25 20:25 Fluticasone Propionate 0.05% Na Spr 16 Gm Btl (*Bkc) NASAL 1 spray Q12HR SADI Administration Fluticasone/Umeclidinium/Vilanterol 1 puff 07/01/25 08:00 07/06/25 07:53 Fluticasone/Umeclidin/Vilanter 100-62.5-25 Mcg Ellipta INHALATION 1 puff DAILYRT SADI Administration Furosemide 20 mg 07/01/25 09:00 07/05/25 09:21 Furosemide 20 Mg Tablet PO 20 mg QAM SADI Administration Gabapentin 300 mg 07/01/25 09:00 07/05/25 17:15 Gabapentin 300 Mg Capsule PO 300 mg TID SADI Administration Glucagon 1 mg 06/30/25 18:01 Glucagon For Inj 1 Mg Vial IM PRN PRN Hypoglycemia Protocol Glucose 15 gm 06/30/25 18:01 Glucose Oral Gel 15 Gm Of Glucse In 37.5 Gm Tube PO PRN PRN Hypoglycemia Protocol Guaifenesin 600 mg 06/30/25 21:00 07/05/25 20:24 Guaifenesin 12 Hr 600 Mg Tabcr PO 600 mg Q12HR SADI Administration Metronidazole 500 mg in 100 mls @ 100 mls/hr 07/01/25 06:00 07/06/25 06:54 Flagyl 500 Mg/Iso Soln 100 Ml IVPB Infused Q8HR SADI Infusion Dextrose 1,000 mls @ 100 mls/hr 06/30/25 18:01 Dextrose 5% 1,000 Ml IVPB PRN PRN Hypoglycemia Protocol Ceftriaxone Sodium 1 gm/ 50 mls @ 100 mls/hr 07/02/25 09:00 07/05/25 10:10 Sodium Chloride IVPB Infused Q24H SADI Infusion Doxycycline Hyclate 100 mg/ 100 mls @ 100 mls/hr 07/02/25 09:00 07/05/25 21:25 Sodium Chloride IVPB Infused Q12H SADI Infusion Insulin Aspart 4 - 8 units 07/02/25 12:00 07/05/25 21:11 Insulin Aspart (*Bkc) 100 Units/Ml SUB-Q Not Given 0800,1200,1700,2100 SADI Protocol Insulin Aspart 4 units 07/05/25 08:00 07/05/25 17:17 Insulin Aspart (*Bkc) 100 Units/Ml SUB-Q 4 units TIDWM SADI Administration Insulin Glargine 17 units 07/05/25 21:00 07/05/25 21:12 Insulin Glargine (*Bkc) 100 Units/Ml SUB-Q 17 units HS SADI Administration Lidocaine 1 patch 07/04/25 10:35 07/05/25 09:17 Lidocaine 5% Patch TRANSDERM 1 patch DAILY SADI Administration Methocarbamol 750 mg 06/30/25 21:10 Methocarbamol 750 Mg Tablet PO TID PRN MUSCLE SPASMS Montelukast Sodium 10 mg 07/01/25 21:00 07/05/25 20:25 Montelukast Sodium 10 Mg Tablet PO 10 mg HS SADI Administration Multivitamins/Minerals 1 tab 07/01/25 09:00 07/05/25 09:21 Multivitamins /C Lutein (Centrum Silver) Tablet *Bkc PO 1 tab QAM SADI Administration Pantoprazole Sodium 40 mg 07/01/25 09:00 07/05/25 09:22 Pantoprazole 40 Mg Tablet PO 40 mg DAILY SADI Administration Paroxetine HCl 20 mg 07/01/25 09:00 07/05/25 09:22 Paroxetine 20 Mg Tablet PO 20 mg DAILY SADI Administration Paroxetine HCl 40 mg 07/01/25 09:00 07/05/25 09:22 Paroxetine 20 Mg Tablet PO 40 mg DAILY SADI Administration Polyethylene Glycol 17 gm 06/30/25 21:10 Polyethylene Glycol 3350 17 Gm Powd.Pack PO BID PRN Constipation Tramadol HCl 50 mg 06/30/25 21:10 Tramadol Hcl (*Crx) 50 Mg Tablet PO Q6H PRN Pain (Scale Score 4-6) Vitamin B Complex 1 cap 07/01/25 09:00 07/05/25 09:21 Vitamin B Complex Capsule PO 1 cap DAILY SADI Administration Radiology Results: ITS Impressions Modified Barium Swallow 07/01/25 14:15 IMPRESSION: No aspiration observed. See speech therapist's note for complete evaluation. Chest X-Ray 07/05/25 11:57 IMPRESSION: 1. Discoid atelectasis in the right mid and lower lungs. No other acute cardiopulmonary disease. 2. Small hiatal hernia. Labs Labs: Laboratory Results - last 24 hr 07/05/25 07/05/25 07/05/25 09:12 11:17 17:15 POC Capillary Glucose 268 H 266 H 161 H 07/05/25 07/05/25 07/06/25 20:45 23:01 07:26 POC Capillary Glucose 497 H 215 H 202 H Quality VTE Prophylaxis VTE prophylaxis: pharmacologic ordered
[2025-07-06 08:25] VITALS: BP 163/79; PULSE 73
[2025-07-06] MEDS: ASPIRIN 81 MG ENTERIC TABLET PO (08:25)
[2025-07-06 08:26] VITALS: PULSE 73
[2025-07-06] MEDS: FERROUS SULFATE 325 MG TABLET BY MOUTH (08:26)
[2025-07-06] MEDS: PANTOPRAZOLE 40 MG TABLET PO (08:26)
[2025-07-06] MEDS: GABAPENTIN 300 MG CAPSULE PO ×2 (08:26→12:28)
[2025-07-06] MEDS: FUROSEMIDE 20 MG TABLET PO (08:26)
[2025-07-06] MEDS: guaiFENesin 12 HR 600 MG TABCR PO (08:26)
[2025-07-06] MEDS: MULTIVITAMINS /C LUTEIN (CENTRUM SILVER) TABLET *BKC 1 TAB PO (08:26)
[2025-07-06] MEDS: VITAMIN B COMPLEX CAPSULE 1 CAP PO (08:27)
[2025-07-06] MEDS: LIDOCAINE 5% PATCH 1 PATCH TRANSDERM (08:27)
[2025-07-06] MEDS: FLUTICASONE PROPIONATE 0.05% NA SPR 16 GM BTL (*BKC) 1 SPRAY NASAL (08:27)
[2025-07-06] MEDS: ENOXAPARIN 40 MG/0.4 ML SYRINGE SUB-Q (08:28)
[2025-07-06] MEDS: cefTRIAXone 1 GM in SODIUM CHLORIDE 0.9% IV 50 ML 100 ML IVPB (08:29)
[2025-07-06] MEDS: INSULIN ASPART (*BKC) 100 UNITS/ML SUB-Q ×4 (08:30→12:29)
[2025-07-06] MEDS: ALPRAZolam (*CRX) 0.5 MG TABLET 1 MG BY MOUTH (08:35)
--- NOTE | 2025-07-06 08:53 | P.DS_ITS ---
DS: Admitting Diagnosis Discharge Date 07/06/25 Admitting Diagnosis Pneumonia DS: Discharge Diagnosis Discharge Diagnosis (1) Pneumonia: Qualifiers: Laterality: right Lung location: lower lobe of lung Pneumonia type: due to unspecified organism Qualified Code(s): J18.9 - Pneumonia, unspecified organism Code(s): J18.9 - Pneumonia, unspecified organism Status: Acute Assessment and Plan: Improving 2 L home O2 at night CT of the abdomen/pelvis yesterday showed ground-glass opacities in the right middle and lower lobes consistent with pneumonia. - supportive care: Mucinex, Tessalon Perles, Tylenol, DuoNebs Doxy and Rocephin transition to oral doxy and Augmentin AM labs Blood cultures no growth at 48 hours (2) Diverticulitis of descending colon: Code(s): K57.32 - Diverticulitis of large intestine without perforation or abscess without bleeding Status: Acute Assessment and Plan: Improving - CT abd/pelvis, 06/29: uncomplicated diverticulitis at the junction of the descending and sigmoid colon. - started on Ceftriaxone and Metronidazole on 06/30 - pain medication prn -senna, add miralax p.r.n. Transition to oral antibiotics for total 7 days (3) Insulin dependent type 2 diabetes mellitus: Code(s): E11.9 - Type 2 diabetes mellitus without complications; Z79.4 - half-way (current) use of insulin Status: Chronic Assessment and Plan: Improved Arrived to the emergency department on 06/30 hyperglycemic with a glucose of 569, No anion gap. - hypoglycemia protocol - POC blood glucose a.c. HS SSI - Hold home [place]. - A1C 7.8% on 02/18/2025 Lantus increased Bolus dose (4) Hypertension: Qualifiers: Hypertension type: primary hypertension Qualified Code(s): I10 - Essential (primary) hypertension Code(s): I10 - Essential (primary) hypertension Status: Chronic Assessment and Plan: Stable - continue home medications: Coreg 25 mg b.i.d. - monitor (5) Chronic kidney disease, stage 3: Qualifiers: Chronic kidney disease stage 3 subtype: stage 3a (GFR 45-59) Qualified Code(s): N18.31 - Chronic kidney disease, stage 3a Code(s): N18.30 - Chronic kidney disease, stage 3 unspecified Status: Chronic Assessment and Plan: Stable Creatinine 1.04, BUN 18, and GFR 51 upon admission on 06/30. At baseline. - trend renal function - monitor electrolytes, correct as needed -AM labs (6) Congestive heart failure: Qualifiers: Heart failure chronicity: chronic Heart failure type: unspecified Qualified Code(s): I50.9 - Heart failure, unspecified Code(s): I50.9 - Heart failure, unspecified Status: Chronic Assessment and Plan: Stable previous echo, June of 2024. LV systolic function was normal with an estimated EF of 55-60%. RV size mildly dilated with normal systolic function. Monitor for fluid overload - continue Lasix 20 mg daily (7) Iron deficiency anemia: Qualifiers: Iron deficiency anemia type: unspecified iron deficiency Qualified Code(s): D50.9 - Iron deficiency anemia, unspecified Code(s): D50.9 - Iron deficiency anemia, unspecified Status: Chronic Assessment and Plan: Stable History of iron deficiency anemia. Hemoglobin 11.7 on upon admission on 06/30. Stable. No signs of bleeding - transfuse if <7 - monitor (8) Chronic respiratory failure with hypoxia, on home oxygen therapy: Code(s): J96.11 - Chronic respiratory failure with hypoxia; Z99.81 - Dependence on supplemental oxygen Status: Acute Assessment and Plan: Stable Requires 2L at night chronically, continue. (9) Confusion: Code(s): R41.0 - Disorientation, unspecified Status: Acute Assessment and Plan: Improving Patient called 911 several times after she was woken up by laboratory she thought this was breaking into her house Daughter is requested we limit testing trend midnight, and sleep hygiene Zyprexa at night Patient slept much better last night did not have any issues with hallucinatio ns. Due to daytime drowsiness Xanax has been changed from scheduled to p.r.n. (10) Lactic acidosis: Code(s): E87.20 - Acidosis, unspecified Status: Acute Assessment and Plan: Resolved Patient found to have pneumonia and acute uncomplicated diverticulitis. on ceftriaxone, doxy, Flagyl. - blood cultures obtained on 06/30, pending - monitor hemodynamic stability - no current leukocytosis, monitor (11) Bright red blood per rectum: Code(s): K62.5 - Hemorrhage of anus and rectum Status: Acute Assessment and Plan: Results Per nursing it was a 1 time scanty amount blood No other signs of bleeding No current signs of prolapse Plan PT OT evaluate and treat activity as tolerated with assistance Diet: Diabetic diet GI Prophylaxis: n/a DVT Prophylaxis: Lovenox Lines/Tubes: Peripheral IV Code Status: Full code DS: Summary Hospital Course Reason for hospitalization: Pneumonia Hospital Course: 79 y/o F with PMH of DM2, asthma/COPD, HLD, HTN, GERD, HFpEF, stroke, coronary artery disease, anemia, anxiety/depression, ME, and gastric ulcer presents here with general decline, altered mental status, hyperglycemia and hallucinations. Patient was seen previously for the same complaints and failed outpatient antibiotics. On admission patient's blood sugar was over 500. ED workup showed no leukocytosis, hemoglobin 11.7, normal coags, sodium 131, creatinine 1.04 and GFR 51, glucose 569, calcium 8.1/albumin 3.4, CRP 16. CXR showed probably bibasilar infiltrates which could be associated pneumonia or aspiration. CT of the abdomen/pelvis from 06/29 showed radiographically uncomplicated diverticulitis at the junction of the descending and sigmoid colon, new central lobar nodules and ground-glass opacities in the right middle/lower lobes consistent with pneumonia. Patient was started on Rocephin, azithromycin and Flagyl. Due to patient possibly having aspiration pneumonia she was seen by speech with recommendations for a modified barium swallow which she passed. Due to the patient's hyperglycemia she was started on high-dose sliding scale, Lantu s and continued Januvia, it takes several days stated her blood sugar under control. Patient did have small streaks of blood in her bowel movements which were likely due to diverticulosis, hemoglobin was stable and patient had no further bleeding. Patient was euvolemic while in the hospital was able to continue home dose Lasix. While in the hospital patient did have hallucinations and called 911 however with good sleep hygiene that have improved and resolved. Patient removed PT OT and on 07/05/2025 patient was safe to discharge to [facility] until she is strong enough to go back to [facility]. Blood cultures were negative At discharge Status at Discharge Functional status at discharge: wheelchair bound Time Spent with Patient Time attestation: Total time spent providing and/or coordinating discharge services: Time spent: Greater than 30 minutes Exam Narrative: General: well appearing, appears stated age. HEENT: normocephalic, atraumatic. Mucous membranes moist. EOMI, PERRLA, bilateral sclera anicteric, no conjunctival injection. Neck supple Respiratory: Wheezes bilaterally. Cardiovascular: Regular rate and rhythm, normal S1-S2. No murmurs, rubs, or clicks. Abdomen: Soft, round, no pulsatile masses, nondistended and nontender. No rebound, no guarding. Bowel sounds present to all four quadrants Extremities: No cyanosis, clubbing, or edema present.Active ROM to all four extremities. Neuro: Alert and orientated x 2-3 Skin: Warm, dry, and intact, without rash Psych: pleasant, cooperative, normal speech, normal affect, no hallucinations, no dysarthia DS: Data Data Completed and Pending Labs on day of discharge: Labs from last 24 hours 07/06/25 07/05/25 07/05/25 07:26 23:01 20:45 POC Capillary Glucose 202 H 215 H 497 H 07/05/25 07/05/25 07/05/25 17:15 11:17 09:12 POC Capillary Glucose 161 H 266 H 268 H Preliminary micro results at discharge 06/30/25 13:49 Blood Culture - Preliminary Blood 06/30/25 13:51 Blood Culture - Preliminary Blood Discharge Plan Discharge Consulting providers: Julia Cowart; Misael Salomon; Adam Goldstein Discharging Clinician: Reina Galeas Anticipated Discharge Date/Time: 07/06/25 08:55 Patient Disposition: SNF Activity: may shower Diet: diabetic Discharge Instructions: Discharge instructions: Take medications as prescribed New medications prescribed: Your being sent home on antibiotics doxycycline and Augmentin on for 3 days for pneumonia Flagyl for diverticulitis for 5 days Your blood sugars were 500 when you came into the hospital you will need to check blood sugars at home, and follow-up with your PCP or investment recovery technician You are activity as tolerated Monitor blood pressures Avoid social areas, you wear a mask when in social settings Encouraged to continue with yearly vaccinations Return to the emergency department if he developed sudden shortness of breath, chest pain, nausea, vomiting, upset stomach or intractable diarrhea Return to the emergency department if you develop fever greater than 101.5 Follow-up with: Your primary care physician within 1-2 weeks for post hospitalization check up Thank you for [facility] for your healthcare needs Patient Instructions: Diverticulitis (DC), Bacterial Pneumonia (DC), Diabetic Hyperglycemia (DC) Patient Language: French Stand Alone Forms: General Discharge Information Follow-up/Referrals: Bryce Rhodes MD [Primary Care Provider, Family Practice] - 2 Weeks Referral Note: For pneumonia diverticulitis Discharge Medications: New metronidazole 500 mg Tablet 500 mg PO Q8HR 3 Days Qty: 9 0RF doxycycline hyclate 100 mg Tablet 100 mg PO Q12H 5 Days Qty: 10 0RF amoxicillin-pot clavulanate 875-125 mg tablet 1 tablet PO Q12H Qty: 3 0RF tramadol 50 mg Tablet 50 mg PO Q6H PRN (Reason: Pain (Scale Score 4-6)) Qty: 12 0RF alprazolam 0.5 mg Tablet 1 mg BYMOUTH TID PRN (Reason: Anxiety) Qty: 12 0RF Continued glucose [Dex4 Glucose] 4 gram tablet,chewable 4 gm PO Q15M PRN (Reason: Hypoglycemia) Rx Instructions: until symptoms of low blood sugar are controlled vitamin B complex [B Complex-Vitamin B12] Tablet 1 tablet PO DAILY gabapentin 300 mg capsule 300 mg PO TID Qty: 90 3RF Gemtesa 75 mg tablet 75 mg PO DAILY Qty: 30 1RF Artificial Tears([id number]) 1-0.2-0.2 % Drops 1 drp EACH EYE QID PRN (Reason: Dry Eye(S)) Qty: 15 0RF fluticasone propionate 50 mcg/actuation [place],Suspension 1 spray intranasal Q12HR Qty: 16 0RF Trelegy Ellipta 100-62.5-25 mcg blister with device 1 inh inhalation DAILY Qty: 60 0RF nitrofurantoin monohyd/m-cryst [Macrobid] 100 mg capsule 100 mg PO Q12H 7 Days Qty: 14 0RF Rx Instructions: must administer with a meal/food tramadol 50 mg tablet 50 mg PO Q6H PRN (Reason: Pain (Scale Score 4-6)) Qty: 15 0RF alprazolam 0.5 mg tablet 1 mg PO TIDHS Qty: 15 0RF Rx Instructions: Take one tablet TID and take 1 1/2 tablet at bedtime polyethylene glycol 3350 [Miralax] 17 gram/dose powder 17 gm PO BID PRN (Reason: Constipation) ondansetron 4 mg tablet,disintegrating 4 mg PO Q8H PRN (Reason: nausea and vomiting) Qty: 14 0RF calcium carbonate 500 mg calcium (1,250 mg) Tablet,Chewable 200 mg PO Q6H PRN (Reason: Indigestion) Qty: 10 0RF cholecalciferol (vitamin D3) 1,250 mcg (50,000 unit) capsule 1,250 mcg PO WEEKLY Qty: 8 0RF Patient Comments: Every Saturday ferrous sulfate 325 mg (65 mg iron) tablet 325 mg PO DAILY Qty: 30 0RF paroxetine HCl 40 mg tablet 40 mg PO DAILY Qty: 30 0RF paroxetine HCl 20 mg tablet 20 mg PO DAILY Qty: 90 0RF pantoprazole 40 mg tablet,delayed release (DR/EC) 40 mg PO DAILY Qty: 30 6RF furosemide 20 mg tablet 20 mg PO QAM Qty: 30 6RF carvedilol [Coreg] 25 mg tablet 25 mg PO BID Qty: 60 4RF Rx Instructions: must administer with a meal/food aspirin [Adult Low Dose Aspirin] 81 mg tablet,delayed release (DR/EC) 81 mg PO DAILY Qty: 30 1RF Januvia 100 mg tablet 100 mg PO QAM Qty: 30 6RF atorvastatin 20 mg tablet 20 mg PO HS Qty: 30 6RF multivitamin with folic acid [Tab-A-Urbano] 400 mcg tablet See Rx Instructions .ROUTE .COMPLEX Qty: 30 3RF Dose Instruction: TAKE 1 TABLET BY MOUTH ONCE DAILY Rx Instructions: TAKE 1 TABLET BY MOUTH ONCE DAILY methocarbamol 750 mg tablet See Rx Instructions .ROUTE .COMPLEX Qty: 60 0RF Dose Instruction: TAKE 1 TABLET BY MOUTH THREE TIMES DAILY NEEDED FOR MUSCLE SPASM Rx Instructions: TAKE 1 TABLET BY MOUTH THREE TIMES DAILY NEEDED FOR MUSCLE SPASM buspirone 10 mg tablet See Rx Instructions .ROUTE .COMPLEX Qty: 180 0RF Dose Instruction: TAKE 2 TABLETS BY MOUTH THREE TIMES DAILY Rx Instructions: TAKE 2 TABLETS BY MOUTH THREE TIMES DAILY montelukast 10 mg tablet 10 mg PO HS Qty: 30 0RF acetaminophen 325 mg capsule 650 mg PO Q6H PRN (Reason: Pain (Scale Score 1-3)) Qty: 90 0RF insulin lispro [Humalog KwikPen Insulin] 100 unit/mL insulin pen 1 sliding scale dose subcut .with meals Qty: 15 0RF Rx Instructions: glucose < 70 mg/dl Follow hypoglycemia order; glucose 70-200 mg/dl No additional insulin; glucose 201-250 mg/dl 4 units sub-Q; glucose 251-300 mg/dl 5 units sub-Q; glucose 301-350 mg/dl 6 units sub-Q glucose 351-400 mg/dl 8 units sub-Q; glucose > 400 mg/dl Call MD Max 24 units daily donepezil 10 mg tablet See Rx Instructions .ROUTE .COMPLEX Qty: 30 0RF Dose Instruction: TAKE 1 TABLET BY MOUTH AT BEDTIME Rx Instructions: TAKE 1 TABLET BY MOUTH AT BEDTIME Discontinued amoxicillin-pot clavulanate 875-125 mg tablet 1 tablet PO Q12H 7 Days Qty: 14 0RF Patient Comments: For 5 days doxycycline hyclate 100 mg capsule 100 mg PO BID Qty: 14 0RF Patient Comments: For 7 days Date of admission: 06/30/25 16:41 Primary Care Provider: Bryce Rhodes Admitting Provider: Axel Leiva Attending physician on admission: Reina Galeas Condition: Stable Quality VTE Prophylaxis VTE prophylaxis: mechanical ordered If No VTE Prophylaxis Answer both mechanical and pharmacologic: Reason no pharmacologic proph: medical contraindication Hospitalist MIPS Heart Failure (Exclusion) Patient has history of Heart Transplant or Left Ventricular Assistive Device?: No IF YES, STOP HERE Heart Failure (Qualifier) Patient has current or prior documentation of LVEF less than or equal to 40%, or mod/servere depressed LVSF?: No IF NO, STOP HERE
[2025-07-06] MEDS: DOXYCYCLINE IV 100 MG in SODIUM CHLORIDE 0.9% IV 100 ML IVPB (09:50)
[2025-07-06 14:00] VITALS: BP 163/73; PULSE 73; RESP 18; TEMP 36.2; O2SAT 98
--- NOTE | 2025-07-06 17:00 | PC.NURSE ---
Sera Marvin called to get a clarification on a script sent with the patient and stated they would need a new script for the pt. Called Dr. Crane to see if he could call the script into the pharmacy and he said to give the pharmacy his number and have them give him a call to explain what they needed.
== END 2025-07-06 16:15 | DRG 194 ==
LOC: ANHED 14:15 → ANH2MED 17:44
PROVIDERS: Nurse Practitioner Adult Health; Student in an Organized Health Care Education/Training Program; Admitting Provider General Practice; Emergency Provider Emergency Medicine; PCP Family Medicine; Visit Provider Nurse Practitioner Gerontology
DX: J18.9 Pneumonia, unspecified organism (principal); E87.20 Acidosis, unspecified; I13.0 Hypertensive heart and chronic kidney disease with heart failure and stage 1 through stage 4 chronic kidney disease, or unspecified chronic kidney disease; J96.11 Chronic respiratory failure with hypoxia; K57.32 Diverticulitis of large intestine without perforation or abscess without bleeding; I50.32 Chronic diastolic (congestive) heart failure; K62.5 Hemorrhage of anus and rectum; I25.10 Atherosclerotic heart disease of native coronary artery without angina pectoris; D50.9 Iron deficiency anemia, unspecified; J44.9 Chronic obstructive pulmonary disease, unspecified; N18.30 Chronic kidney disease, stage 3 unspecified; E11.22 Type 2 diabetes mellitus with diabetic chronic kidney disease; E11.65 Type 2 diabetes mellitus with hyperglycemia; E78.5 Hyperlipidemia, unspecified; K21.9 Gastro-esophageal reflux disease without esophagitis; K44.9 Diaphragmatic hernia without obstruction or gangrene; R41.0 Disorientation, unspecified; M17.11 Unilateral primary osteoarthritis, right knee; F03.90 Unspecified dementia, unspecified severity, without behavioral disturbance, psychotic disturbance, mood disturbance, and anxiety; F32.A Depression, unspecified; F41.9 Anxiety disorder, unspecified; Z79.4 Long term (current) use of insulin; Z99.81 Dependence on supplemental oxygen; I25.2 Old myocardial infarction; Z95.5 Presence of coronary angioplasty implant and graft; Z79.82 Long term (current) use of aspirin; Z87.11 Personal history of peptic ulcer disease
CPT/HCPCS: 36415; 71045; 74230; 80048; 80053; 82948; 83605; 83735; 85025; 85027; 85610; 85730; 86140; 87040; 92526; 92610; 92611; 94640; 96365; 96375; 97110; 97161; 97165; 97530; 99285; A9270; J0456; J0696; J1650; J1815; J1836; J7030; J7050; J7120